=== PATIENT | male | born 1955 | race Caucasian/White ===

== ENCOUNTER 2018-04-12 16:00 | Outpatient (RCR) | payer BC, SELFPAY ==
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
--- NOTE | 2018-03-15 17:30 | HP.OTEVAL ---
Patient's Visit Information KETAN COTTON is a 62 year old M, referred to Occupational Therapy by Carl Franco, , with a diagnosis of Bilateral Thumb Pain; CMC OA. Date of Evaluation: 03/15/18 Occupational Therapist: Carlyn Boyce - Subjective Subjective: Arrived and noted previously fell on L wrist and broke L scaphoid fx and elbow fx of L wrist with screws in 2000. No new injury to L wrist. B wrist pain. 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 Noted that has had ongoing B thumb pain over the last year or so and has had increased pain in L wrist since break. Looking to help manage and decrease pain in thumbs and wrist. - Pain Bilateral Wrist 1 Pain Intensity Range: 0, 3 - Objective Concerns: Please send order for iontophoresis to complete anti-inflammatory techniques to decrease pain in thumbs. - ROM Wrist: Flex R 0-91, L 0-62; ext R 0-39, L 0-36 MP: R 0-60, L 0-68 IP: R 0-67, L 0-62 Radial Abduction: R 0-63, L 0-62 Opposition: R 0-26, L 0-24 MP: WFL PIP: WFL DIP: WFL ROM Comments: Increased formation of ostephytes noticable at DIP. - Strength Independent Beauty Consultant: R 95, L 89 Lateral Pinch: R 22, L 18 (increased pain and facial expressions at 8 lbs) Tripod Pinch: R 12, L 15 lbs Tip-to-Tip Pinch: held due to pain while completing previous fx pinch patterns - Sensation Sensation Comments: Denies numbness or tingling. - DASH-Disabilities of Arm, Shoulder& Hand DASH Sum: 48 - Goals Goal:: Timmy to increase B associate doctor by 5-10 lbs to promote increased stability of wrist and decreased pain in CMC regin for ADl/IADls by d/c. Goal:: Timmy to have no more than 1/10 pain in B thumb and wrists with fx movements 4/5 trials 80% of the timd to promote increased participation of ADl/IADls by d/c. Goal:: Timmy to be mod I to complete proper ergonomics of wrist and hand to decrease pain and promote increased body mechanics 4/5 trials 80% of the time by d/c. Goal:: Timmy to be (I) to complete HEP to promote increased stability of R wrist and thumb 4/5 trials 80% of the time by d/c. - Rehabilitation General Assessment: OT evaluation on this date. He has had previous scaphoid fx of L wrist with screw placement in 2000. Increased pain in L wrist and at B thumb regions due to B CMC OA. OT to work on increased strength and stability of basal joint to promote CMC stability, pain management, and increased ergonomics to promote increased stability for ADL/IADls and decrease pain t/o wrist with fx movements. Rehabilitation Potential: Good - Anticipated Interventions Anticipated Interventions: A/AAROM/PROM, Strengthening, Modalities, Orthoses, Joint Protection/Energy Conservation, Ergonomic Education, Dynamic Sitting Balance, Fine Motor Coord/Dick, ADL Training, Caregiver Training, Home Program - Visit Plan Frequency: 2x /Week Duration: 4 Weeks General Plan: OT to work on ROM, strength, ergonomics, modalities as needed to manage pain, and general techniques to decrease pain to promote returning to PLOF for all ADl/IADLS by d/c. TEXT: Thank you for the opportunity to evaluate your patient. For Medicare and Medicare HMO plans, please review the plan of care and approve it. It will need to be FAXED BACK to us at [phone] for Medicare purposes. Please let me know if there are questions or concerns regarding this plan of care. Physician Signature: Date:
--- NOTE | 2018-04-12 17:01 | HP.OTDCSUM_ITS ---
HP - OT D/C Summary It has been my pleasure to treat KETAN COTTON under orders from Carl Franco, , for the diagnosis of Bilateral Thumb Pain; CMC OA for a total of 6 visit(s). Please see the following information for a summary of their discharge status. - Overall Improvement % Improvement: 70 - Objective Objective/Function: Reassessment completed on this date, 04/12/18. Measurements are as follows: thumb opposition R 0-26, L 0-30, MP flexion R 15-72, L 15-73, IP flexion R 0-69, L -6-62. Wrist flexion R 0-87, L 0-76; ext R 0-45, L 0-39 degrees. Strength assessment is as follows: ophthalmic medical technologist R 112, L 101; lateral R 26, L 22 lbs- some pain but 1-2/10, tripod R 21, L 18 lbs, pincer R 10, L 12 lbs. - Goals Patient Goals: Regain Mobility, Regain Strength, Decrease Pain, Improve Fine Motor Skills, Use Hand/Wrist/Arm Normally Again, Sleep Better, Decrease Tingling /Numbness, Increase ROM, Be More Independent in ADLS, Resume Former Household Responsibilities (Cooking,Cleaning,Yard, etc.), Resume Hobbies Goal:: Timmy to increase B ophthalmic medical technologist by 5-10 lbs to promote increased stability of wrist and decreased pain in CMC regin for ADl/IADls by d/c. Goal:: Timmy to have no more than 1/10 pain in B thumb and wrists with fx movements 4/5 trials 80% of the timd to promote increased participation of ADl/ IADls by d/c. Goal:: Timmy to be mod I to complete proper ergonomics of wrist and hand to decrease pain and promote increased body mechanics 4/5 trials 80% of the time by d/c. Goal:: Timmy to be (I) to complete HEP to promote increased stability of R wrist and thumb 4/5 trials 80% of the time by d/c. - Plan Plan: Pt. to be d/c'd today as noted doing welland progress or meant most goals. He reports using KT methods during work. Has order for CMC push brace but due to recent termination at job is waiting before ordering. He is continuing to complete work-related tasks and has been educated pain may return when returning to full duty work in which PUSH brace and KT tape will as well as HEP will help manage. He has been provided order for brace to get at leisure with financial situation. - D/C Information If there are questions or concerns regarding this patient's occupational therapy , please fell free to call me at [phone]. Thank you for the referral of this patient. Sincerely, Carlyn Boyce, OTR/L
== END 2018-04-12 19:00 | disposition home or self-care (01) ==
LOC: OT 16:00
PROVIDERS: Family Provider Family Medicine; PCP Family Medicine; Visit Provider Family Medicine
DX: M79.644 Pain in right finger(s) (principal); M79.645 Pain in left finger(s); G57.32 Lesion of lateral popliteal nerve, left lower limb; S16.1XXD Strain of muscle, fascia and tendon at neck level, subsequent encounter
CPT/HCPCS: 97035; 97110; 97140; 97161; 97166; 97168; 97530

== ENCOUNTER 2019-02-04 19:07 | Emergency (ER) | payer BC, SELFPAY ==
[2019-02-04 19:08] VITALS: BP 134/89; PULSE 74; RESP 18; TEMP 37.1; O2SAT 97; BMI 29.3
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
--- NOTE | 2019-02-04 19:23 | RAD_ITS ---
STUDY: X-RAY - LEFT FOOT CLINICAL: Male, 63 years old. Pain and swelling TECHNIQUE: 3 view(s) of the foot. COMPARISON: None. FINDINGS: Normal talus, calcaneus, and tarsal bones. Normal visualized subtalar, talonavicular, calcaneocuboid, tarsal and tarsometatarsal articulations. Normal metatarsi. Normal metatarsophalangeal joint of the great toe. Normal tibial and fibular sesamoid bones. Normal interphalangeal joint of the great toe. Normal phalanges of the great toe. Normal second through fifth metatarsophalangeal joints. Normal interphalangeal joints and phalanges of the lesser toes. The soft tissue structures are unremarkable. RAD/Foot min 3 Views IMPRESSION: Normal x-ray examination of the foot. Electronically Signed: Umer Cabral MD at 19:42 EDT , Service support ,
[2019-02-04] MEDS: HYDROcodone Bitartrate/Apap 5/325 Tablet PO (20:25)
[2019-02-04 20:39] VITALS: BP 130/68; PULSE 78; RESP 18; O2SAT 98
== END 2019-02-04 20:39 | disposition home or self-care (01) ==
LOC: ED 19:55
PROVIDERS: Emergency Provider Emergency Medicine; Family Provider Family Medicine; PCP Family Medicine
DX: S90.32XA Contusion of left foot, initial encounter (principal); W20.8XXA Other cause of strike by thrown, projected or falling object, initial encounter; Y93.89 Activity, other specified; Y92.89 Other specified places as the place of occurrence of the external cause; Y99.8 Other external cause status
CPT/HCPCS: 73630; 99283

== ENCOUNTER 2019-02-06 17:32 | Emergency (ER) | payer BC, SELFPAY ==
[2019-02-06 17:34] VITALS: BP 135/76; PULSE 67; RESP 18; TEMP 36.9; O2SAT 96; BMI 29.4
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
--- NOTE | 2019-02-06 18:18 | US_ITS ---
STUDY: VENOUS DOPPLER ULTRASOUND - LEFT LOWER EXTREMITY REASON FOR EXAM: Male, 63 years old. Leg swelling TECHNIQUE: Ultrasound evaluation of the deep vein system to include akhtar-scale imaging and compression was performed. Akhtar-scale imaging and Doppler sonographic evaluation, including duplex spectral analysis and qualitative color flow sonography, was performed. COMPARISON: None. FINDINGS: No deep venous thrombosis is identified. All visualized veins demonstrate normal compressibility, augmentation and/or color flow. Multiple calf varicosities are visible. US/Venous Duplex Imag/Limited/Uni IMPRESSION: No DVT is identified. Electronically Signed: Blake Lyon MD at 19:15 EDT Tel , Service support ,
--- NOTE | 2019-02-06 19:10 | DCINST.ED_ITS ---
ED Disposition - Plan for ED Patient: Disposition: Home or Assisted Living Instructions: THROMBOPHLEBITIS, Superficial Referrals: Umer Kirk DPM [STAFF PHYSICIAN] - As Needed Additional Instructions: Continue naproxen. Elevate your leg to decrease the swelling. Follow-up with your silvering applicator Dr. Umer Kirk
[2019-02-06 19:23] VITALS: BP 132/60; PULSE 76; RESP 18; O2SAT 96
== END 2019-02-06 19:24 | disposition home or self-care (01) ==
PROVIDERS: Emergency Provider Emergency Medicine; Family Provider Family Medicine; PCP Family Medicine
DX: I80.02 Phlebitis and thrombophlebitis of superficial vessels of left lower extremity (principal); M79.89 Other specified soft tissue disorders; V28.0XXD Motorcycle driver injured in noncollision transport accident in nontraffic accident, subsequent encounter; M19.90 Unspecified osteoarthritis, unspecified site; K21.9 Gastro-esophageal reflux disease without esophagitis; E78.00 Pure hypercholesterolemia, unspecified; Z79.899 Other long term (current) drug therapy
CPT/HCPCS: 93971; 99282

== ENCOUNTER → 2019-02-16 | Outpatient (CLI) | payer BC, SELFPAY ==
[2019-02-06 17:34] VITALS: BMI 29.4
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
== END | disposition home or self-care (01) ==
PROVIDERS: Family Provider Family Medicine; PCP Family Medicine; Referring Provider Podiatrist; Visit Provider Podiatrist
DX: S93.325A Dislocation of tarsometatarsal joint of left foot, initial encounter (principal)
CPT/HCPCS: 73718

== ENCOUNTER → 2019-02-21 | Outpatient (CLI) | payer BC, SELFPAY ==
[2019-02-06 17:34] VITALS: BMI 29.4
[2019-02-21 15:36] LABS: Absolute Lymphocyte Count 1.46 X10^3/uL (0.83-4.51); Absolute Neutrophil Count 4.6 X10^3/uL (2.0-7.7); Basophil# 0.02 X10^3/uL; Basophil% 0.3 % (0-1); Eosinophil# 0.07 X10^3/uL; Hematocrit 47.4 % (40-54); Hemoglobin 16.6 g/dL (13.0-16.5); Lymphocyte # 1.46 X10^3/ul (4.0); Lymphocyte % 21.2 % (19-41); Mean Corpuscular Hgb 31.9 pg (27.0-32.0); Mean Platelet Vol. 10.8 fl (6.2-12.0); Monocyte# 0.75 X10^3/uL; Monocyte% 10.9 % (0-10); NRBC Flagged by Analyzer 0 % (0-5); Neutrophil # 4.57 X10^3/uL (2.7-7.7); Neutrophil % 66.2 % (47-70); Platelet Count 198 K/mm3 (150-450); RBC Distribution Width SD 39.8 fl (35.1-43.9); Red Blood Count 5.21 M/mm3 (4.6-6.2); White Blood Count 6.9 K/mm3 (4.4-11.0)
[2019-02-21 16:05] LABS: Anion Gap 8 (5-15); BUN 17 mg/dL (7-18); BUN/Creat Ratio 16.7 RATIO (10-20); Calcium,Total 8.9 mg/dL (8.5-10.1); Chloride 108 mmol/L (98-107); Creatinine, Serum 1.02 mg/dL (0.70-1.30); EST Glomerular Filtration Rate 78 mL/min (>60); Est Glom Filt Rate - Afr Amer 95 mL/min (>60); Glucose 100 mg/dL (74-106); Potassium 4.3 mmol/L (3.5-5.1); Sodium Level 147 mmol/L (136-145)
== END | disposition home or self-care (01) ==
LOC: MFPLAB 14:13
PROVIDERS: Family Provider Family Medicine; PCP Family Medicine; Referring Provider Family Medicine; Visit Provider Family Medicine
DX: Z00.00 Encounter for general adult medical examination without abnormal findings (principal)
CPT/HCPCS: 36415; 80048; 85025

== ENCOUNTER 2019-02-22 12:02 | Day surgery (SDC) | payer BC, SELFPAY ==
[2019-02-22] VITALS (10 sets, daily range): BP systolic 106–138; BP diastolic 78–92; PULSE 66–105; RESP 14–18; TEMP 36.2–37.1; O2SAT 89–99; BMI 29.9
--- NOTE | 2019-02-22 12:23 | EKG12_ITS ---
Test Reason : PREOP Blood Pressure : / mmHG Vent. Rate : 067 BPM Atrial Rate : 067 BPM P-R Int : 170 ms QRS Dur : 096 ms QT Int : 414 ms P-R-T Axes : 041 -31 034 degrees QTc Int : 437 ms Normal sinus rhythm Left axis deviation , LAHB Nonspecific T wave abnormality Abnormal ECG When compared with ECG of 14-OCT-2012 05:11, Nonspecific T wave abnormality has replaced inverted T waves in Inferior leads Confirmed by FELICIANO COLE ([id number]), state editor DIANA YOUNGER ([id number]) on 03/01/2019 8:47:53 AM Referred By: Umer Kirk Confirmed By:FELICIANO COLE
--- NOTE | 2019-02-22 14:30 | RAD_ITS ---
STUDY: X-RAY - LEFT FOOT CLINICAL: Male, 63 years old. ORIF TECHNIQUE: 4 view(s) of the foot. COMPARISON: February 04, 2019 FINDINGS: 4 fluoroscopic guided films were obtained utilizing 13 minutes 22 seconds of fluoroscopy time. There is Lisfranc injury noted with separation of the first and second metatarsal shafts. Postsurgical changes are noted with a surgical pin transfixing the second metatarsal and middle cuneiform as well as a second partially threaded screw traversing the medial cuneiform and base of the second metatarsal. For more complete information recommend correlation with surgical notes RAD/Foot min 3 Views IMPRESSION: Fluoroscopic guided ORIF Lisfranc injury of the left foot Electronically Signed: Umer Cabral MD at 19:49 EDT , Service support ,
[2019-02-22] MEDS: Bupivacaine Mpf 0.5% 30 ML VIAL (17:20)
--- NOTE | 2019-02-22 18:02 | RAD_ITS ---
STUDY: X-RAY - LEFT FOOT CLINICAL: Male, 63 years old. Postop TECHNIQUE: 3 view(s) of the foot. COMPARISON: None. FINDINGS: Status post ORIF and casting of the foot following postsurgical repair of previously noted Lisfranc joint injury at the base of the second and third metatarsals RAD/Foot min 3 Views IMPRESSION: Post surgical changes of the left foot Electronically Signed: Umer Cabral MD at 18:50 EDT , Service support ,
--- NOTE | 2019-02-22 18:09 | DCINST_ITS ---
Discharge Diet: Light diet - advance as tolerated Discharge Activity: May not drive while taking narcotic pain medications., Use Crutches Weight Bearing Status: No weight bearing - Strict nonweightbearing left foot Keep extremity elevated above heart level: Left Leg - Keep left foot elevated for at least 50 minutes of every hour Call your doctor if your incision/area has: Continuous Slow Oozing, Sudden Increased Bleeding, Foul Smelling Discharge Call your doctor if you observe: Fever of 101 or Higher, Coldness, Increased Pain, Shortness of breath, Chest pain, Increased palpitations (irregular heartbeat), Calf discomfort, Uncontrolled pain Cleanse incision/area with: Do not get Incision Wet, Keep Dressing Clean & Dry Allergies/Adverse Reactions: Allergies Penicillins Allergy (Verified 02/22/19 12:34) Unknown Medications to take at Discharge Esomeprazole Magnesium 40 mg PO DAILY 07/16/17 Pravastatin Sodium 40 mg PO QHS 07/16/17 Testosterone Cypionate 200 mg IM QMONTH 07/16/17 Multivitamin [Daily Multiple Vitamin] 1 ea PO DAILY 02/21/19 Naproxen [Naprosyn] 500 mg PO BID PRN PRN 02/21/19 Hydrocodone/Acetaminophen [Vicodin 5-300 mg Tablet] 1 - 2 tab PO Q6H PRN PRN 3 Days #30 tab 02/22/19 Rivaroxaban [Xarelto] 10 mg PO DAILY #14 tab 02/22/19 The following prescriptions were given: Hydrocodone/Acetaminophen [Vicodin 5-300 mg Tablet] 1 - 2 tab PO Q6H PRN PRN 3 Days #30 tab PRN Reason: Pain Rivaroxaban [Xarelto] 10 mg PO DAILY #14 tab Primary Care Physician: Carl Franco MD [Primary Care Provider] - Test Results: Test results from this visit will be discussed in further detail at your follow- up appointment, if applicable. Please Follow Up With: Umer Kirk DPM When: within 1 week, sooner if needed
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
[2019-02-22] MEDS: HYDROcodone Bitartrate/Apap 5/325 Tablet PO (19:26)
== END 2019-02-22 20:20 | disposition home or self-care (01) ==
LOC: SDC 12:05 → AC 12:06
PROVIDERS: Family Provider Family Medicine; PCP Family Medicine; Referring Provider Podiatrist; Visit Provider Podiatrist
PROC: (CPT 28485; principal; 2019-02-22 13:30)
DX: S93.325A Dislocation of tarsometatarsal joint of left foot, initial encounter (principal); S93.692A Other sprain of left foot, initial encounter; K21.9 Gastro-esophageal reflux disease without esophagitis; E78.00 Pure hypercholesterolemia, unspecified; Z79.1 Long term (current) use of non-steroidal anti-inflammatories (NSAID); Z79.899 Other long term (current) drug therapy; W20.8XXA Other cause of strike by thrown, projected or falling object, initial encounter; Y93.89 Activity, other specified; Y92.89 Other specified places as the place of occurrence of the external cause; Y99.8 Other external cause status
CPT/HCPCS: 01480; 28322; 73630; 76000; 93005; C1713; J7120; J2405

== ENCOUNTER 2019-05-15 17:30 | Outpatient (RCR) | payer BC, SELFPAY ==
[2019-02-22 12:37] VITALS: BMI 29.9
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
--- NOTE | 2019-07-01 13:46 | HP.PTDCNRP_ITS ---
HP - Discharge Summary (1) - Patient Information KETAN COTTON was seen in my office for initial evaluation on 04/10/19. The following Plan of Care was established for this patient: Initial Frequency: 3x /Week Initial Duration: 2 Months - Anticipated Interventions Patient/Client Instruction: Educate patient on: Condition, Plan of Care For the Purpose of:: To decrease pain, To decrease swelling/inflammation, To in crease ROM, To improve nutrient delivery to tissue, To improve muscle performance and motor function, To improve ability to perform ADL's, To increase tolerance to activity/condition/position, To improve performance and independence with ADL's, To decrease level of supervision to perform tasks, To improve ability of physical actions for home/community/work/leisure, To improve gait and locomotor functions, To improve health of tissue, To decrease soft tissue restriction, To increase flexibility/ROM, To improve endurance, To improve balance, To improve safety with gait Therapeutic Exercise to Include: Strength training, Endurance training, Balance training, Coordination, Flexibilty training, Gait and locomotor training, Passive ROM, Active ROM For the Purpose of:: To decrease pain, To decrease swelling/inflammation, To increase ROM, To improve nutrient delivery to tissue, To improve muscle performance and motor function, To improve ability to perform ADL's, To increase tolerance to activity/condition/position, To improve performance and independence with ADL's, To decrease level of supervision to perform tasks, To improve ability of physical actions for home/community/work/leisure, To improve gait and locomotor functions, To improve health of tissue, To decrease soft tissue restriction, To increase flexibility/ROM, To improve endurance, To improve balance Functional Training to Include: Gait training For the Purpose of:: To improve gait and locomotor functions, To improve safety with gait Manual Therapy Techniques to Include: Massage, Scar massage, Soft tissue mobilization For the Purpose of:: To decrease pain, To decrease swelling/inflammation, To increase ROM, To improve nutrient delivery to tissue, To improve muscle performance and motor function IF ES: Yes Cryotherapy (ice pack, ice massage): Yes Ultrasound (thermal/non thermal): Yes For the Purpose of:: To decrease pain, To decrease swelling/inflammation, To increase ROM, To improve nutrient delivery to tissue, To improve muscle performance and motor function This patient was last seen in our office 05/15/19. Pertinent comments regarding their Physical therapy will appear below: DC PT. Pt was 90% better on his last visit and we were holding his chart incase he felt he needed additional PT. At this point I will be discontinuing this patient from physical therapy. I would be happy to see this patient again in the future if found appropriate by the physician. Thank you! Monica Galvez, MPT
== END 2019-05-15 19:00 | disposition home or self-care (01) ==
LOC: PT 17:30
PROVIDERS: Family Provider Family Medicine; PCP Family Medicine; Referring Provider Podiatrist; Visit Provider Podiatrist
DX: Z98.890 Other specified postprocedural states (principal)
CPT/HCPCS: 97110; 97140; 97162; 97530

== ENCOUNTER 2019-08-23 14:06 | Day surgery (SDC) | payer BC, SELFPAY ==
[2019-02-22 12:37] VITALS: BMI 29.9
[2019-08-19 14:06] VITALS: BMI 30.3
[2019-08-23 14:28] VITALS: BP 134/83; PULSE 71; RESP 16; TEMP 36.9; O2SAT 95; BMI 29.7
[2019-08-23] MEDS: Lactated Ringers 1,000 ML 100 ML IV (14:40)
--- NOTE | 2019-08-23 15:45 | BON_PTH ---
PATIENT: KETAN COTTON [place] [facility] [id number] AGE/SX: 63/M ROOM: RE08/23/[address]: Dr. Umer Kirk DPM : 1955 BED: DIS: 08/23/2019 SPEC #: [id number] RECD: 08/26/19 13:25 STATUS: TUAN ABBIE #: [id number] PABLO: 08/23/19 15:[address]: Umer Kirk DEPT: SURGICAL PATHOLOGY RECD BY: Analilia Gutierrez ENTERED: 08/26/19 14:49 SP TYPE: Bone OTHR DR: Dr. Carl Franco MD Tissues: Bone of foot, NOS Procedures: Decalcification bone/plaque Surgery Specimen Level III HEADER OPERATION: Hardware removal, placement Tightrope implant PRE-OP DIAGNOSIS: Torn Lisfranc ligament with retain symptomatic hardware TISSUE SUBMITTED: Prominent bone left foot MICROSCOPIC DIAGNOSIS Prominent bone left foot: Pieces of bone and adherent piece of fibroconnective tissue with reactive changes. YANELIS:richie 08/29/19 MICROSCOPIC DESCRIPTION Slides are reviewed. GROSS DESCRIPTION Received in fixative is one container labeled with the patient's name and designated prominent bone left foot. The specimen consists of four variable sized pieces of bone measuring in aggregate 2 x 1.5 x 0.3 cm. The entire specimen is submitted in one cassette after decalcification. / YANELIS:richie 08/26/19 TC:5 CPT: 66739, 00962
--- NOTE | 2019-08-23 15:47 | PCM.DC.POD ---
Discharge Diet: Light diet - advance as tolerated Discharge Activity: May not drive while taking narcotic pain medications. Weight Bearing Status: No weight bearing - No weightbearing left foot Keep extremity elevated above heart level: Left Leg Call your doctor if your incision/area has: Continuous Slow Oozing, Sudden Increased Bleeding, Foul Smelling Discharge Call your doctor if you observe: Fever of 101 or Higher, Shortness of breath, Chest pain, Calf discomfort, Uncontrolled pain Cleanse incision/area with: Do not get Incision Wet, Keep Dressing Clean & Dry Allergies/Adverse Reactions: Allergies erythromycin base Allergy (Intermediate, Verified 08/23/19 14:29) Nausea/Vom/Diarrhea niacin [From Niaspan Extended-Release] Allergy (Intermediate, Verified 08/23/19 14:29) Hives Penicillins Allergy (Verified 08/23/19 14:29) Unknown atorvastatin Adverse Reaction (Intermediate, Verified 08/23/19 14:29) myalgias cerivastatin [From Baycol] Adverse Reaction (Intermediate, Verified 08/23/19 14:29) leg cramps Medications to take at Discharge Esomeprazole Magnesium 40 mg PO DAILY 07/16/17 Pravastatin Sodium 40 mg PO QHS 07/16/17 Testosterone Cypionate 200 mg IM QMONTH 07/16/17 Multivitamin [Daily Multiple Vitamin] 1 ea PO DAILY 02/21/19 Albuterol IH (ProAir) [Proair Hfa (SP)Vent Pts] 1 - 2 puff INHALATION Q4H PRN PRN 08/16/19 D-Methorphan/PE/Acetaminophen [Day Time Cold-Flu Softgel] 1 ea PO PRN PRN 08/16/19 Fluticasone 0.05% [Flonase Nasal [place]] 1 spray NASAL PRN PRN 08/16/19 Loratadine [Claritin] 10 mg PO PRN PRN 08/16/19 Tamsulosin HCl [Flomax] 0.4 mg PO QHS 08/16/19 cyclobenzaprine 5 mg tablet 5 mg PO QHS PRN 08/16/19 diclofenac sodium 1 % topical gel 2 g TOPICAL BID PRN g 08/16/19 naproxen 500 mg tablet 500 mg PO BID PRN tab 08/16/19 nystatin-triamcinolone 1 applic TOPICAL BID PRN 08/16/19 Hydrocodone/Acetaminophen [[place] 5-325 Tablet] 1 - 2 ea PO Q6H PRN PRN 3 Days #24 tab 08/23/19 The following prescriptions were given: Hydrocodone/Acetaminophen [[place] 5-325 Tablet] 1 - 2 ea PO Q6H PRN PRN 3 Days #24 tab PRN Reason: Pain Score 1-1010 Transmission Status: Received by [facility] Primary Care Physician: Carl Franco MD [Primary Care Provider] - Test Results: Test results from this visit will be discussed in further detail at your follow-up appointment, if applicable. Please Follow Up With: Umer Kirk DPM When: 1 week, sooner if needed
--- NOTE | 2019-08-23 16:09 | RAD_ITS ---
STUDY: X-RAY - LEFT FOOT-fluoroscopy guided operative hardware removal. CLINICAL: Male, 63 years old. 3 mini c-arm images, intraoperative, left foot hardware removal TECHNIQUE: Fluoroscopic guidance was provided for operative procedure of hardware removal. 3 images were obtained. The reported fluoroscopy time was 2 minutes and 47 seconds. COMPARISON: None. FINDINGS: Images of the midfoot performed with radiopaque metallic structure projecting over the third metatarsal base. RAD/Foot min 3 Views IMPRESSION: Fluoroscopic guidance provided as described above. For details please see operative report. Electronically Signed: Cara Pandya MD at 2:34 EST , Service support ,
[2019-08-23] MEDS: Bupivacaine Mpf 0.5% 30 ML VIAL (17:16)
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
[2019-08-23 17:26] VITALS: BP 134/83; BP 167/108; PULSE 79; RESP 16; TEMP 36.5; O2SAT 94
[2019-08-23 17:30] VITALS: BP 134/83; BP 144/96; PULSE 78; RESP 16; O2SAT 92
--- NOTE | 2019-08-23 17:35 | RAD_ITS ---
STUDY: X-RAY - LEFT FOOT CLINICAL: Male, 63 years old. POST OP REMOVAL OF SCREW AND PLACEMENT OF TIGHTROPE IMPLANT LEFT FOOT TECHNIQUE: 3 view(s) of the foot. COMPARISON: None. FINDINGS: There is soft tissue swelling with the small amount of air and irregularity over the medial aspect of the first cuneiform bones, findings which may be due to recent surgery, cannot exclude infectious process. Otherwise normal talus, calcaneus, and tarsal bones. Normal visualized subtalar, talonavicular, calcaneocuboid, tarsal and tarsometatarsal articulations. Is visualization of a small metallic structure projecting over the dorsum of the second and third metatarsal bases with status post removal previously seen pain and fixation screw. Otherwise normal metatarsal bones.. There is degenerative arthrosis of the metatarsophalangeal joint of the hallux . Normal tibial and fibular sesamoid bones. There is degenerative arthrosis of the interphalangeal joint of the great toe. Normal phalanges of the great toe. Normal second through fifth metatarsophalangeal joints. Narrowing of the distal interphalangeal joints otherwise normal phalanges of the lesser toes. The soft tissue structures are unremarkable. There is no demonstrated fracture. RAD/Foot min 3 Views IMPRESSION: Postoperative changes as described above. Cannot exclude infectious process at the medial aspect of the first cuneiform bone versus recent surgical change. If indicated, follow-up with MRI or bone scan recommended. Electronically Signed: Cara Pandya MD at 2:38 EST , Service support ,
[2019-08-23 17:45] VITALS: BP 134/83; BP 135/92; PULSE 76; RESP 16; O2SAT 95
[2019-08-23 17:53] VITALS: BP 134/83; BP 140/89; PULSE 80; RESP 16; TEMP 36.5; O2SAT 95
[2019-08-23] MEDS: HYDROcodone Bitartrate/Apap 5/325 Tablet PO (18:06)
[2019-08-23 19:05] VITALS: BP 134/83; BP 143/90; PULSE 63; RESP 16; TEMP 36.8; O2SAT 98
== END 2019-08-23 19:08 | disposition home or self-care (01) ==
LOC: SDC 14:06 → AC 14:11
PROVIDERS: Family Provider Family Medicine; PCP Family Medicine; Referring Provider Podiatrist; Visit Provider Podiatrist
PROC: (CPT 20680; principal; 2019-08-23 15:30)
DX: T84.84XA Pain due to internal orthopedic prosthetic devices, implants and grafts, initial encounter (principal); K21.9 Gastro-esophageal reflux disease without esophagitis; E78.00 Pure hypercholesterolemia, unspecified; R35.1 Nocturia; R07.9 Chest pain, unspecified; Z79.899 Other long term (current) drug therapy
CPT/HCPCS: 01480; 20680; 28140; 28899; 73630; 76000; 88304; 88305; 88311; C1713; J7120; J2405

== ENCOUNTER 2019-11-25 16:30 | Outpatient (RCR) | payer BC, SELFPAY ==
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
--- NOTE | 2019-10-23 17:59 | HP.PTREVAL ---
Umer Kirk, CURT, It has been my pleasure to treat KETAN COTTON over the last 11 visits for S/P LEFT FOOT HARDWARE REMOVAL AND WIRE PLACEMENT 08/23/19. Please see the progress note below for an update on the physical therapy plan of care! Subjective: PATIENT REPORTS HIS FOOT IS GETTING BETTER. STATES HE CAN EVEN WALK NORMALLY ON IT FOR BRIEF PERIODS OF TIME NOW. TAKING WALKS WITH HIS NOW BUT HE GETS PRETTY SORE BY THE TIME THEY ARE DONE (OVER A MILE). Objective/Function: IMPROVING. PATIENT IS MAKING SLOW PROGRESS TOWARD ALL SET PT GOALS AND IS A GOOD CANDIDATE TO CONTINUE PT BASED ON PROGRESS MADE AND ROOM FOR FUTHER IMPROVEMENT. AROM LEFT ANKLE: PF 58 DEG, DF - 8 DEG, IV 28 DEG, EV 33 DEG. LIMITED TOE ROM. FOREFOOT TIGHTNESS. Plan Plan: START SESSIONS WITH MANUAL THERAPY - JOINT ROM AND STRETCHING. LEFT LE AROM, PROM AND MANUAL THERAPY TO INCREASE ROM, DECREASE SWELLIING, IMPROVE STERNGTH, BALANCE, GAIT AND PROPRIOCEPTION WBAT IN SHOE. MODALITIES FOR SWELLING NEEDED. Anticipated Interventions Patient/Client Instruction: Educate patient on: Condition, Plan of Care, Risk Factors, Benefits of Fitness Program For the Purpose of:: To improve self management Therapeutic Exercise to Include: Strength training, Balance training, Flexibilty training, Gait and locomotor training, Neuromotor development, Passive ROM, Active ROM For the Purpose of:: To decrease pain, To decrease swelling/inflammation, To increase ROM, To improve muscle performance and motor function, To increase tolerance to activity/condition/position, To improve ability of physical actions for home/community/work/leisure, To improve gait and locomotor functions Manual Therapy Techniques to Include: Mobilization, Passive ROM For the Purpose of:: To decrease pain, To decrease swelling/inflammation, To increase ROM Cryotherapy (ice pack, ice massage): Yes For the Purpose of:: To decrease pain, To decrease swelling/inflammation Please do not hesitate to contact me at [phone] by phone or if you have questions or concerns regarding this new plan of care! Sincerely, Kyung Alonso, PT, Cert MDT
--- NOTE | 2019-11-25 17:10 | HP.PTDCSUM ---
It has been my pleasure to treat KETAN COTTON referred by Umer Kirk DPM, with the diagnosis of S/P LEFT FOOT HARDWARE REMOVAL AND WIRE PLACEMENT 08/23/19 for a total of 22 visit(s). Discharge Date: Please see the following information for a summary of their discharge status. Subjective: PATIENT REPORTS HE IS 95+% BETTER. PATIENT REPORTS THE STRETCHES ARE REALLY HELPING HIM. PATIENT REPORTS BEING ABLE TO WALK NORMALLY OFF AND ON BUT THE MORE HE PUTS WEIGHT ON THE BALL OF HIS FOOT THE MORE IT HURTS. 1-2/10 PAIN WITH A HEEL RAISE. HAS NOT TRIED TO RUN DUE TO PAIN. RIGHT FOOT Pain Intensity (Out of 10): 0 L foot Pain Intensity (Out of 10): 0 % Improvement: 95 Objective/Function: PATIENT WAS SEEN TODAY FOR RE-ASSESSMENT OF PROGRESS TOWARD THE SET PT GOALS AND THE NEED FOR FURTHER PHYSICAL THERAPY VS READINESS FOR DISCHARGE. UPON EXAM TODAY: PATIENT HAS GOOD ISOMETRIC STRENGTH OF HIS LEFT FOOT AND ANKLE WITH MMT'ING BUT WEAKNESS IS SEEN IN DIGITS 2,3 AND 4 GRADED 4/4 INTO FLEXION AND EXTENSION. LEFT ANKLE ROM HAS IMPROVED TOO: DF +7 DEG, PF 60 DEG, IV 43 DEG AND EV 38 DEG. PATIENT IS INDEP WITH A HEP AND APPROPRIATE FOR DISCHARGE. PATIENT IS AGREEABLE. THIS PT RECOMMENDED PHYSICIAN FOLLOW UP NEEDED IF HE DOES NOT CONTINUE TO IMPROVE. PATIENT AGREEABLE. Plan: D/C TO HEP. PATIENT AGREEABLE. If there are questions or concerns regarding this patient's physical therapy, please feel free to call me at [phone]. Thank you for the referral of this patient. Sincerely, Kyung Alonso, PT, Cert MDT
== END 2019-11-25 19:00 | disposition home or self-care (01) ==
LOC: PT 16:30
PROVIDERS: PCP Family Medicine; Referring Provider Podiatrist; Visit Provider Podiatrist
DX: Z98.890 Other specified postprocedural states (principal)
CPT/HCPCS: 97110; 97140; 97162; 97164

== ENCOUNTER 2020-10-09 11:15 | Outpatient (RCR) | payer MEDICARE, BC, SELFPAY ==
[2020-10-09] MEDS: COVID-19 VACC, MRNA(PFIZER)/PF 30 MCG/0.3 ML SYRINGE IM (16:00)
[2020-10-30] MEDS: COVID-19 VACC, MRNA(PFIZER)/PF 30 MCG/0.3 ML SYRINGE IM (16:01)
== END 2020-10-09 23:59 ==
LOC: IMMUN 11:15
PROVIDERS: PCP Family Medicine; Visit Provider Family Medicine
DX: Z23 Encounter for immunization (principal)
CPT/HCPCS: 0001A; 0002A; 91300

== ENCOUNTER 2021-06-18 08:30 | Outpatient (RCR) | payer MEDICARE, SELFPAY ==
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
--- NOTE | 2021-06-18 09:36 | HP.PTDCSUM ---
It has been my pleasure to treat KETAN COTTON referred by Dr. Rena Aviles, [facility], with the diagnosis of L mid foot pain DOS 08/19/19 for a total of 13 visit(s). Discharge Date: Please see the following information for a summary of their discharge status. Subjective: I am ready for discharge L foot Pain Intensity (Out of 10): 0 % Improvement: 85 Objective/Function: L ankle pain 0-1/10. L ankle DF ROM 11 degrees. L ankle strength is 5/5 throughout. Pt is I with HEP. Rx goals achieved Goal 1:: Decrease L foot pain x 50% to aid with sleep Goal Progress: Goal Met Goal 2:: Increase L ankle DF ROM x 5-10 degrees to aid with restoring a more normal gait pattern Goal Progress: Goal Met Goal 3:: Increase L ankle strength x 1 grade to aid with increased tolerance for ambulation Goal Progress: Goal Met Goal 4:: I with HEP Goal Progress: Goal Met Plan: Discharge If there are questions or concerns regarding this patient's physical therapy, please feel free to call me at [phone]. Thank you for the referral of this patient. Sincerely, Gio Gonzalez, PT, ATC Balance/Gait/Functional tests - Balance/Special Test Scores Lower Extremity Functional Score: 69
== END 2021-06-18 19:00 | disposition home or self-care (01) ==
LOC: PT 08:30
PROVIDERS: PCP Family Medicine; Referring Provider Podiatrist; Visit Provider Podiatrist
DX: M77.8 Other enthesopathies, not elsewhere classified (principal); Z87.828 Personal history of other (healed) physical injury and trauma
CPT/HCPCS: 97110; 97140; 97161; 97164

== ENCOUNTER 2022-07-16 17:55 | Inpatient (IN) | payer MEDICARE, SELFPAY ==
[2022-07-16] VITALS (7 sets, daily range): BP systolic 138–169; BP diastolic 78–111; PULSE 55–64; RESP 15–18; TEMP 36.1–36.8; O2SAT 93–99; BMI 31.3
--- NOTE | 2022-07-16 18:42 | EKG12_ITS ---
Test Reason : DYSRHYTHMIA Blood Pressure : / mmHG Vent. Rate : 052 BPM Atrial Rate : 052 BPM P-R Int : 172 ms QRS Dur : 108 ms QT Int : 452 ms P-R-T Axes : 051 -29 007 degrees QTc Int : 420 ms Sinus bradycardia Otherwise normal ECG Confirmed by JOSÉ LUIS TRUONG, LISE ([id number]), web editor DIANA YOUNGER ([id number]) on 07/18/2022 12:46:02 PM Referred By: Confirmed By:LISE ORDONEZ MD
--- NOTE | 2022-07-16 18:42 | RAD_ITS ---
STUDY: X-RAY CHEST REASON FOR EXAM: Male, 66 years old. chest pain TECHNIQUE: Single AP portable view of the chest. COMPARISON: 10/14/2012 FINDINGS: Poor inspiration with some bibasilar atelectasis. There is no demonstrated pleural abnormality. Normal size heart. Normal mediastinum and walter. Normal visualized pulmonary arteries. Normal visualized aortic arch and descending thoracic aorta. Normal visualized thoracic spine. Normal visualized ribs, clavicles, and shoulders. There is no demonstrated abnormality of the visualized soft tissue structures of the upper abdomen. RAD/Chest 1 View (Portable) IMPRESSION: Poor inspiration with some bibasilar atelectasis. Electronically Signed: Curt Hall MD at 19:27 [facility] ,
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
[2022-07-16] MEDS: Aspirin 81 MG TAB.CHEW 324 MG PO (19:00)
[2022-07-16] MEDS: Acetaminophen 500 MG Tablet 1000 MG PO (19:00)
[2022-07-16 19:05] LABS: Absolute Lymphocyte Count 1.46 X10^3/uL (0.83-4.51); Absolute Neutrophil Count 6.1 X10^3/uL (2.0-7.7); Basophil# 0.02 X10^3/uL; Basophil% 0.2 % (0-1); Eosinophils% 1.2 % (0-5); Hematocrit 46.9 % (40-54); Hemoglobin 16.2 g/dL (13.0-16.5); Lymphocyte # 1.46 X10^3/ul (0.83-4.51); Mean Corp Hgb Conc 34.5 g/dL (32-36); Mean Corpuscular Hgb 31.3 pg (27.0-32.0); Mean Corpuscular Volume 90.7 fL (80-94); Mean Platelet Vol. 10.4 fl (6.2-12.0); Monocyte% 10.5 % (0-10); NRBC Flagged by Analyzer 0 % (0-5); Neutrophil % 70.9 % (47-70); Platelet Count 187 K/mm3 (150-450); RBC Distribution Width CV 12.6 % (11.6-14.6); RBC Distribution Width SD 41.5 fl (35.1-43.9); Red Blood Count 5.17 M/mm3 (4.6-6.2); White Blood Count 8.6 K/mm3 (4.4-11.0)
[2022-07-16 19:21] LABS: D-Dimer Quantitative (DVT/PE) 0.53 FEU/ug/m (0.27-0.49)
--- NOTE | 2022-07-16 19:22 | CT_ITS ---
STUDY: CTA CHEST REASON FOR EXAM: Male, 66 years old. elevated d dimer RADIATION DOSAGE (If Supplied By Facility): CTDIvol = ( 15.42 ) mGy, DLP = ( 532.79 ) mGycm TECHNIQUE: The examination was performed with the intravenous administration of IV 100mL Isovue-370. Post-processing of the angiographic images was performed, with multiplanar reformation and 3D reconstruction. Individualized dose optimization techniques were used for this CT. COMPARISON: Chest x-ray earlier today FINDINGS: Normal enhancement of the main pulmonary artery and right and left pulmonary arteries. Normal enhancement of the bilateral peripheral pulmonary arteries. There is no demonstrated pulmonary embolism. Normal thoracic aorta and visualized great vessels. There is no demonstrated aortic dissection. Normal heart and pericardium. Normal mediastinum. Normal hilar regions. Normal visualized trachea and bronchi. The lungs are well expanded. Normal pulmonary parenchyma. Normal pleura. Normal chest wall structures. Normal osseous structures. Normal visualized upper abdomen. CT/CTA Chest W/WO Contrast IMPRESSION: Normal CTA chest examination, without a demonstrated pulmonary embolism or arterial dissection. Electronically Signed: Curt Hall MD at 20:46 EST ,
[2022-07-16 19:29] LABS: Anion Gap 3 (5-15); BUN 21 mg/dL (7-18); BUN/Creat Ratio 20.8 RATIO (10-20); Calcium,Total 8.9 mg/dL (8.5-10.1); Chloride 109 mmol/L (98-107); Creatinine, Serum 1.01 mg/dL (0.70-1.30); EST Glomerular Filtration Rate 78 mL/min (>60); Est Glom Filt Rate - Afr Amer 95 mL/min (>60); Estimated Creatinine Clearance 71.94 ml/min; Glucose 92 mg/dL (74-106); Sodium Level 142 mmol/L (136-145); Troponin-I HS (w/2H Reflex) 253 pg/mL (3.0-78.0)
--- NOTE | 2022-07-16 19:50 | EKG12_ITS ---
Test Reason : DYSRHYTHMIA Blood Pressure : / mmHG Vent. Rate : 061 BPM Atrial Rate : 061 BPM P-R Int : 164 ms QRS Dur : 100 ms QT Int : 418 ms P-R-T Axes : 052 -28 028 degrees QTc Int : 420 ms Normal sinus rhythm Normal ECG Confirmed by JOSÉ LUIS TRUONG, LISE ([id number]), scientific publications editor DIANA YOUNGER ([id number]) on 07/18/2022 12:46:17 PM Referred By: Confirmed By:LISE ORDONEZ MD
[2022-07-16 21:01] LABS: Reflex Troponin-HS? (from REC) Y
[2022-07-16 21:36] LABS: International Normalized Ratio 1.1; Prothrombin Time (Protime)PT. 13.9 SECONDS (11.7-14.9)
[2022-07-16 21:37] LABS: Partial Thromboplast Time 28.6 Seconds (24.1-36.2)
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
[2022-07-16 21:50] LABS: Troponin-I HS 928 pg/mL (3.0-78.0)
[2022-07-16] MEDS: Heparin Injection (Vial) 5,000 UNIT/ML VIAL 4000 UNIT IV (21:59)
[2022-07-16] MEDS: HEPARIN/D5w 25,000 UNITS 25,000 UNITS/250 ML IV.SOLN. 10 UNITS CONT INF (22:00)
[2022-07-16] MEDS: Pravastatin 40 MG Tablet PO (22:04)
--- NOTE | 2022-07-16 22:56 | EKG12_ITS ---
Test Reason : NSTEMI ADMIT Blood Pressure : / mmHG Vent. Rate : 055 BPM Atrial Rate : 055 BPM P-R Int : 176 ms QRS Dur : 104 ms QT Int : 436 ms P-R-T Axes : 065 -38 -05 degrees QTc Int : 417 ms Sinus bradycardia Left axis deviation Nonspecific T wave abnormality Abnormal ECG When compared with ECG of 22-FEB-2019 12:30, Nonspecific T wave abnormality, worse in Inferior leads Confirmed by JOSÉ LUIS TRUONG, LISE ([id number]), editor dictionary DIANA YOUNGER ([id number]) on 07/19/2022 8:37:06 AM Referred By: Confirmed By:LISE ORDONEZ MD
--- NOTE | 2022-07-16 22:56 | ECHOD_ITS ---
Reason For Study: CHEST PAIN Procedure This was a 2D Doppler, Color Flow transthoracic echocardiogram. Exam performed portable in patient room. Left Ventricle Normal LV size. Left ventricular systolic function is normal. The estimated ejection fraction is 55 %. No regional wall motion abnormalities noted. Right Ventricle Normal RV size. Normal systolic function. Atria Normal left atrium. Normal right atrium. Mitral Valve Normal mitral valve. Mild (1+) eccentric mitral valve insufficiency. Tricuspid Valve Normal tricuspid valve. Mild (1+) tricuspid valve insufficiency. Pulmonary artery systolic pressure is 30 mmHg. Aortic Valve Normal aortic valve. Trisinus/trileaflet aortic valve. Pulmonic Valve Normal pulmonic valve. Great Vessels Normal aortic root. The pulmonary artery is normal size. Normal inferior vena cava. Pericardium/Pleural No pericardial effusion. MMode/2D Measurements & Calculations LVIDd: 5.0 cm IVSd: 0.87 cm Ao root diam: 3.3 cm LVIDs: 3.6 cm LVPWd: 0.89 cm RVDd: 4.0 cm FS: 26.7 % LAV(MOD-bp): 53.9 ml LVAd ap4: 38.1 cm2 SV(MOD-sp4): 80.1 ml LAV(MOD-bp) Indexed: 25.6 ml/m2 LVLd ap4: 8.7 cm LAV(MOD-sp2): 56.4 ml EDV(MOD-sp4): 134.3 ml LAV(MOD-sp4): 53.5 ml EDV(sp4-el): 140.8 ml LVAs ap4: 21.8 cm2 LVLs ap4: 7.3 cm ESV(MOD-sp4): 54.3 ml ESV(sp4-el): 54.9 ml EF(MOD-sp4): 59.6 % EF(sp4-el): 61.0 % SV(sp4-el): 85.9 ml LA A4 area: 19.5 cm2 LA dimension(2D): 3.8 cm RA A4 area: 20.1 cm2 Time Measurements MV dec time: 0.22 sec Doppler Measurements & Calculations MV E max ethan: 60.3 cm/sec Lat Peak E' Ethan: 11.0 cm/sec Med Peak E' Ethan: 7.4 cm/sec MV A max ethan: 63.5 cm/sec E/E' lat: 5.5 E/E' med: 8.1 MV E/A: 0.95 Ao V2 max: 128.9 cm/sec LV V1 max: 102.5 cm/sec PA V2 max: 52.9 cm/sec Ao max P.6 mmHg LV V1 max P.2 mmHg TR max ethan: 255.6 cm/sec TR max P.1 mmHg ECHO/Echo Complete Interpretation Summary Normal LV size. Left ventricular systolic function is normal. The estimated ejection fraction is 55 %. Mild (1+) tricuspid valve insufficiency. Pulmonary artery systolic pressure is 30 mmHg. Ordering Physician: Ruy Null Referring Physician: MALINDA WARE Performed By: Azeb Navas RDCS
[2022-07-17] VITALS (10 sets, daily range): BP systolic 105–133; BP diastolic 67–93; PULSE 59–87; RESP 16–18; TEMP 36.6–37; O2SAT 97–100
[2022-07-17] MEDS: Lisinopril 2.5 MG Tablet PO ×2 (00:03→08:35)
[2022-07-17 01:49] LABS: Troponin-I HS 2011 pg/mL (3.0-78.0)
[2022-07-17] MEDS: CLARIFY ORDER 1 EACH NOTE (01:58)
[2022-07-17 03:55] LABS: Absolute Lymphocyte Count 1.62 X10^3/uL (0.83-4.51); Absolute Neutrophil Count 4.5 X10^3/uL (2.0-7.7); Basophil# 0.05 X10^3/uL; Basophil% 0.7 % (0-1); Eosinophil# 0.23 X10^3/uL; Eosinophils% 3.1 % (0-5); Hemoglobin 15.6 g/dL (13.0-16.5); Lymphocyte # 1.62 X10^3/ul (0.83-4.51); Lymphocyte % 21.7 % (19-41); Mean Corp Hgb Conc 33.9 g/dL (32-36); Mean Corpuscular Hgb 31.1 pg (27.0-32.0); Mean Corpuscular Volume 91.8 fL (80-94); Monocyte# 1.04 X10^3/uL; Monocyte% 13.9 % (0-10); NRBC Flagged by Analyzer 0 % (0-5); Neutrophil % 60.3 % (47-70); Platelet Count 179 K/mm3 (150-450); RBC Distribution Width CV 12.6 % (11.6-14.6); RBC Distribution Width SD 42.5 fl (35.1-43.9); Red Blood Count 5.01 M/mm3 (4.6-6.2); White Blood Count 7.5 K/mm3 (4.4-11.0)
[2022-07-17 04:09] LABS: Partial Thromboplast Time 55.1 Seconds (24.1-36.2)
[2022-07-17 04:14] LABS: Anion Gap 5 (5-15); BUN 21 mg/dL (7-18); BUN/Creat Ratio 23.9 RATIO (10-20); Calcium,Total 8.3 mg/dL (8.5-10.1); Chloride 107 mmol/L (98-107); Cholesterol 165 mg/dL (200); Creatinine, Serum 0.88 mg/dL (0.70-1.30); EST Glomerular Filtration Rate 92 mL/min (>60); Est Glom Filt Rate - Afr Amer 112 mL/min (>60); Estimated Creatinine Clearance 85.26 ml/min; Glucose 100 mg/dL (74-106); High Density Lipoprotein 44 mg/dL; Potassium 3.5 mmol/L (3.5-5.1); Sodium Level 140 mmol/L (136-145); Triglycerides 188 mg/dL; Very Low Density Lipoprotein 38 mg/dL (5-40)
--- NOTE | 2022-07-17 08:23 | EKG12_ITS ---
Test Reason : Blood Pressure : / mmHG Vent. Rate : 055 BPM Atrial Rate : 055 BPM P-R Int : 168 ms QRS Dur : 098 ms QT Int : 444 ms P-R-T Axes : 065 -33 -17 degrees QTc Int : 424 ms Sinus bradycardia with Premature atrial complexes Left axis deviation Nonspecific T wave abnormality Abnormal ECG When compared with ECG of 17-JUL-2022 00:21, MANUAL COMPARISON REQUIRED, DATA IS UNCONFIRMED Confirmed by JOSÉ LUIS TRUONG, LISE ([id number]), editor farm journal DIANA YOUNGER ([id number]) on 07/19/2022 8:35:46 AM Referred By: Confirmed By:LISE ORDONEZ MD
[2022-07-17] MEDS: Pantoprazole Sodium 40 MG Tablet PO (08:35)
[2022-07-17] MEDS: Tamsulosin HCl 0.4 MG Capsule PO (08:35)
[2022-07-17] MEDS: Aspirin E.C. 81 MG Tablet PO (08:35)
[2022-07-17] MEDS: Multivitamins,Therapeutic Tablet 1 TABLET PO (08:35)
[2022-07-17] MEDS: Ferrous Sulfate 325 MG Tablet PO (08:35)
--- NOTE | 2022-07-17 09:28 | PN.HOSP_ITS ---
Subjective Subjective Follow-up for NSTEMI. Objective Data Objective Data Vital Signs: Vital Signs Temp Pulse Resp BP Pulse Ox O2 Del Method 97.9 F 59 L 16 129/93 H 99 Room Air 07/17/22 08:15 07/17/22 08:19 07/17/22 08:15 07/17/22 08:15 07/17/22 08:30 07/17/22 08:30 Oxygen Delivery Method Room Air Weight: 209 lb 7.026 oz Body Mass Index (BMI) 30.0 Intake & Output: Intake and Output for Last 24 Hours 07/15/22 07/16/22 07/17/22 23:59 23:59 23:59 Intake Total 70.83 / 70.83 Balance 70.83 / 70.83 Lab / Micro Data Result Diagrams: 07/17/22 03:46 07/17/22 03:46 Labs: Laboratory Results - last 24 hr 07/16/22 18:56: WBC 8.6, RBC 5.17, Hgb 16.2, Hct 46.9, MCV 90.7, MCH 31.3, MCHC 34.5, RDW Std Deviation 41.5, RDW Coeff of Tere 12.6, Plt Count 187, MPV 10.4, Immature Gran % (Auto) 0.200, Neut % (Auto) 70.9 H, Lymph % (Auto) 17.0 L, [place] % (Auto) 10.5 H, Eos % (Auto) 1.2, Baso % (Auto) 0.2, Absolute Neuts (auto) 6.1, Absolute Lymphs (auto) 1.46, Nucleated RBC % 0 07/16/22 18:56: Sodium 142, Potassium 4.0, Chloride 109 H, Carbon Dioxide 30.0, Anion Gap 3 L, BUN 21 H, Creatinine 1.01, Estim Creat Clear Calc 71.94, Est GFR (MDRD) Af Amer 95, Est GFR (MDRD) Non-Af 78, BUN/Creatinine Ratio 20.8 H, Glucose 92, Calcium 8.9, Troponin I High Sens 253 H* 07/16/22 18:56: D-Dimer Quant (PE/DVT) 0.53 H* 07/16/22 18:56: PT 13.9, INR 1.1, APTT 28.6 07/16/22 21:10: Troponin I High Sens 928 H* 07/17/22 01:08: Troponin I High Sens 2011 H* 07/17/22 03:46: WBC 7.5, RBC 5.01, Hgb 15.6, Hct 46.0, MCV 91.8, MCH 31.1, MCHC 33.9, RDW Std Deviation 42.5, RDW Coeff of Tere 12.6, Plt Count 179, MPV 11.0, Immature Gran % (Auto) 0.300, Neut % (Auto) 60.3, Lymph % (Auto) 21.7, [place] % (Auto) 13.9 H, Eos % (Auto) 3.1, Baso % (Auto) 0.7, Absolute Neuts (auto) 4.5, Absolute Lymphs (auto) 1.62, Nucleated RBC % 0 07/17/22 03:46: Sodium 140, Potassium 3.5, Chloride 107, Carbon Dioxide 28.0, Anion Gap 5, BUN 21 H, Creatinine 0.88, Estim Creat Clear Calc 85.26, Est GFR (MDRD) Af Amer 112, Est GFR (MDRD) Non-Af 92, BUN/Creatinine Ratio 23.9 H, Glucose 100, Calcium 8.3 L, Triglycerides 188, Cholesterol 165, LDL Cholesterol 83, VLDL Cholesterol 38, HDL Cholesterol 44 07/17/22 03:46: APTT 55.1 H Radiography Diagnostic Testing: Radiology Impression Chest X-Ray 07/16/22 18:42 IMPRESSION: Poor inspiration with some bibasilar atelectasis. Electronically Signed: Curt Hall MD at 19:27 EST Reading Location ID and State: [email or web address] / [employer] , Service support , Chest CTA 07/16/22 19:22 IMPRESSION: Normal CTA chest examination, without a demonstrated pulmonary embolism or arterial dissection. Electronically Signed: Curt Hall MD at 20:46 EST Reading Location ID and State: [email or web address] / [employer] , Service support , Physical Exam Narrative Physical exam Patient has healthy lifestyle. 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 He had pain over the left arm/armpit with radiation to bilateral periscapular area, more p rominent in the left side on lifting mattress but also had dyspnea on exertion progressively for last 1 year General: Alert, Oriented x3, Cooperative HEENT: Atraumatic, PERRLA, EOMI, Normocephalic Oral: No Gingival or Mucosal Lesions/ Ulcerations Neck: Supple, No JVD, Negative Carotid Bruits Lungs: Air entry equal in bilateral lung bases. No crepitation/rhonchi Cardiovascular: Regular rate, Regular Rhythm, Normal S1, Normal S2, No murmurs Abdomen: Bowel Sounds Present, Soft, Non Tender, Non-Distended : No renal angle tenderness. No suprapubic tenderness. Extremities: No edema, Capillary Refill Less than 3 Seconds Skin: Mild itching and rash on left greer, chronic. Seems eczema/dermatitis Musculoskeletal: No Tenderness to Palpation of Joints or Extremities Neurological: Cranial nerves II-XII grossly intact, DTR 2+/4 and Symmetrical, Neuro grossly intact Psych/Mental Status: Normal Affect, Appropriate. Assessment & Plan Assessment/Plan (1) Non-ST elevation [place] (NSTEMI): (2) Elevated blood pressure reading: PLAN: Plan This 66-year-old gentleman was admitted with left armpit/shoulder pain with radiation to bilateral periscapular area along with worsening shortness of exertion for 1 year. 1. Non-STEMI: Patient with elevated PSA. Initial high sensitive troponin was 253. Serial troponin shows 998 and 2011. Twelve-lead EKG individually reviewed and does not show significant changes. First EKG sinus bradycardia LAD and the second sinus bradycardia 55 beats minute with no significant ST-T dynamic changes. Chest pain Varisource bibasilar crepitations with poor inspiration. D-dimer was elevated but age-adjusted was normal. CTPA showed no pulmonary embolism or dissection. Patient on aspirin, heparin drip. Morphine as needed. On pravastatin, allergic to atorvastatin. Serum magnesium and phosphorus level normal. K3.51. 40 M EQ K. Dur, 1 dose of replacement Informatics Educator is consulted. Elevated blood pressure the diagnosis of hypertension Patient noted to have elevated blood pressure. Started on lisinopril. Beta- oscar has deferred at this time as patient had sinus bradycardia and beta- oscar can be added in due to cause. Trend BP. Dyspnea on exertion Echocardiogram ordered. DVT prophylaxis: on heparin drip Charges/Coding Visit Charges Inpatient E&M: 50549 Subs Hosp L2
[2022-07-17 10:24] LABS: Magnesium 2.1 mg/dL (1.6-2.6)
[2022-07-17] MEDS: Potassium Chloride Oral Tablet 20 MEQ 40 MEQ PO (11:09)
[2022-07-17 12:01] LABS: Partial Thromboplast Time 40.5 Seconds (24.1-36.2)
--- NOTE | 2022-07-17 13:49 | CON.PCM.CA_ITS ---
Assessment & Plan Assessment/Plan (1) Hyperlipidemia: (2) Elevated blood pressure reading: (3) Non-ST elevation NM (NSTEMI): PLAN: Plan 66-year-old patient seen and evaluated today at bedside along with the nursing staff Family and daughter at bedside Comfortable resting in bed no symptoms of chest pain reported today Cardiovascular exam essentially normal Electrocardiogram showed change in the inferior lead Had a significant elevation of cardiac biomarkers with high sensitive troponin With a clinical diagnosis of non-ST elevation NM Cardiac care plan recommendations; 1. I reviewed the current medication will continue on heparin, aspirin, pravastatin. Patient has allergy to atorvastatin 2. Echocardiogram in the morning 3. We will proceed with cardiac catheterization, right radial artery approach HPI Consult Data Date of Consult: 07/17/22 Attending Care Provider: This patient six 6-year-old presented with symptoms of chest pain Described typical symptoms of angina retrosternal chest pain on exertion In the ER he was evaluated by EKG a series of cardiac biomarker was high sensitive troponin which showed evidence of non-ST elevation NM. He does not have any prior cardiac history. HPI Narrative Reason for Consultation: Patient with non-ST elevation NM/non-STEMI HPI Narrative: KETAN COTTON, is a 66 M who presents [facility] Medical History Chest pain Enthesopathy of hip region Generalized anxiety disorder GERD (gastroesophageal reflux disease) Hemorrhoids History of vitamin D deficiency Hyperlipidemia Home Medications esomeprazole magnesium 40 mg capsule,delayed release 40 mg PO DAILY Check with primary doctor 07/16/17 [History Last Taken 07/16/17] naproxen 500 mg tablet 500 mg PO BID PRN Pain 08/16/19 [History Last Taken Unknown] ferrous sulfate 325 mg (65 mg iron) tablet 325 mg PO DAILY Check with primary doctor 07/16/22 [History Last Taken Unknown] multivitamin 1 tab PO DAILY Check with primary doctor 07/16/22 [History Last Taken Unknown] tamsulosin 0.4 mg capsule 0.4 mg PO DAILY Check with primary doctor 07/16/22 [History Last Taken Unknown] testosterone cypionate 200 mg/mL intramuscular oil 200 mg IM QMONTH Check with primary doctor 07/16/22 [History Last Taken Unknown] pravastatin 80 mg tablet 80 mg PO DAILY cholesterol 07/17/22 [History Last Taken Unknown] Allergy/AdvReac Type Severity Reaction Status Date / Time erythromycin base Allergy Intermediate Nausea/Vom/ Verified 07/16/22 17:59 Diarrhea niacin Allergy Intermediate Hives Verified 07/16/22 17:59 [From Niaspan Extended-Release] Penicillins Allergy Unknown Verified 07/16/22 17:59 atorvastatin AdvReac Intermediate myalgias Verified 07/16/22 17:59 cerivastatin [From Baycol] AdvReac Intermediate leg cramps Verified 07/16/22 17:59 Family History Father Alzheimer's disease Mother CAD (coronary artery disease) Diabetes Heart disease open heart surgery History of motor vehicle accident Surgical History H/O arthroscopy of knee History of foot surgery (~07/2019) History of hemorrhoidectomy History of open reduction and internal fixation (ORIF) procedure History of surgery on upper extremity History of tonsillectomy History of umbilical hernia repair History of varicose vein stripping S/P excision of neuroma Social History Smoking Status: Never smoker alcohol intake: current alcohol intake frequency: a few times a month substance use type: does not use caffeine: Yes Type: coffee Number of servings: 1 ROS ROS Narrative 14 system review is unremarkable apart from the current presentation of symptoms of chest pain typical of angina No other associated symptoms reported. Symptoms of chest pain resolved at rest. Physical Exam Cardio Cardio Narrative: General exam Patient alert orientated x3 Not in acute distress Cardiovascular exam; cardiac rhythm is normal sinus rhythm S1-S2 is regular Chest exam is clear to auscultation bilateral. Risk Stratification Risk Stratification Applicable: Yes Age >/= 65: Yes >/= 3 CAD Risk Factors (HTN, HLD, DM, family hx of CAD, or current smoker): Yes Aspirin Use in the Past 7 Days: Yes Severe Angina (>/= episodes in 24 hours): Yes EKG ST Changes >/= 0.5mm: Yes Positive Cardiac Marker: Yes RADHA Risk Stratification Score: 6 RADHA % Risk: 41% Risk Objective Data Vital Signs: Vital Signs Temp Pulse Resp BP Pulse Ox O2 Del Method 97.9 F 59 L 16 129/93 H 99 Room Air 1218/22 08:15 07/17/22 08:19 07/17/22 08:15 07/17/22 08:15 07/17/22 08:30 07/17/22 08:30 Oxygen Delivery Method Room Air Weight: 209 lb 7.026 oz Body Mass Index (BMI) 30.0 Intake & Output: Intake and Output for Last 24 Hours 07/15/22 07/16/22 07/17/22 23:59 23:59 23:59 Intake Total 320.83 / 320.83 Balance 320.83 / 320.83 Lab / Micro Data Result Diagrams: 07/17/22 03:46 07/17/22 03:46 Labs: Laboratory Results - last 24 hr 07/16/22 18:56: WBC 8.6, RBC 5.17, Hgb 16.2, Hct 46.9, MCV 90.7, MCH 31.3, MCHC 34.5, RDW Std Deviation 41.5, RDW Coeff of Tere 12.6, Plt Count 187, MPV 10.4, Immature Gran % (Auto) 0.200, Neut % (Auto) 70.9 H, Lymph % (Auto) 17.0 L, [place] % (Auto) 10.5 H, Eos % (Auto) 1.2, Baso % (Auto) 0.2, Absolute Neuts (auto) 6.1, Absolute Lymphs (auto) 1.46, Nucleated RBC % 0 07/16/22 18:56: Sodium 142, Potassium 4.0, Chloride 109 H, Carbon Dioxide 30.0, Anion Gap 3 L, BUN 21 H, Creatinine 1.01, Estim Creat Clear Calc 71.94, Est GFR (MDRD) Af Amer 95, Est GFR (MDRD) Non-Af 78, BUN/Creatinine Ratio 20.8 H, Glucose 92, Calcium 8.9, Troponin I High Sens 253 H* 07/16/22 18:56: D-Dimer Quant (PE/DVT) 0.53 H* 07/16/22 18:56: PT 13.9, INR 1.1, APTT 28.6 07/16/22 21:10: Troponin I High Sens 928 H* 07/17/22 01:08: Troponin I High Sens 2011 H* 07/17/22 03:46: WBC 7.5, RBC 5.01, Hgb 15.6, Hct 46.0, MCV 91.8, MCH 31.1, MCHC 33.9, RDW Std Deviation 42.5, RDW Coeff of Tere 12.6, Plt Count 179, MPV 11.0, Immature Gran % (Auto) 0.300, Neut % (Auto) 60.3, Lymph % (Auto) 21.7, [place] % (Auto) 13.9 H, Eos % (Auto) 3.1, Baso % (Auto) 0.7, Absolute Neuts (auto) 4.5, Absolute Lymphs (auto) 1.62, Nucleated RBC % 0 07/17/22 03:46: Sodium 140, Potassium 3.5, Chloride 107, Carbon Dioxide 28.0, Anion Gap 5, BUN 21 H, Creatinine 0.88, Estim Creat Clear Calc 85.26, Est GFR (MDRD) Af Amer 112, Est GFR (MDRD) Non-Af 92, BUN/Creatinine Ratio 23.9 H, Glucose 100, Calcium 8.3 L, Triglycerides 188, Cholesterol 165, LDL Cholesterol 83, VLDL Cholesterol 38, HDL Cholesterol 44 07/17/22 03:46: APTT 55.1 H 07/17/22 03:46: Phosphorus 3.0, Magnesium 2.1 07/17/22 11:05: APTT 40.5 H Cardiology Labs/Tests 07/16/22 18:56: WBC 8.6, RBC 5.17, Hgb 16.2, Hct 46.9, MCV 90.7, MCH 31.3, MCHC 34.5, Plt Count 187, MPV 10.4, Immature Gran % (Auto) 0.200, Neut % (Auto) 70.9 H, Lymph % (Auto) 17.0 L, [place] % (Auto) 10.5 H, Eos % (Auto) 1.2, Baso % (Auto) 0.2, Absolute Neuts (auto) 6.1, Nucleated RBC % 0 07/16/22 18:56: Sodium 142, Potassium 4.0, Chloride 109 H, Carbon Dioxide 30.0, Anion Gap 3 L, BUN 21 H, Creatinine 1.01, Est GFR (MDRD) Af Amer 95, Est GFR (MDRD) Non-Af 78, BUN/Creatinine Ratio 20.8 H, Glucose 92, Calcium 8.9 07/16/22 18:56: D-Dimer Quant (PE/DVT) 0.53 H* 07/16/22 18:56: PT 13.9, INR 1.1, APTT 28.6 07/17/22 03:46: WBC 7.5, RBC 5.01, Hgb 15.6, Hct 46.0, MCV 91.8, MCH 31.1, MCHC 33.9, Plt Count 179, MPV 11.0, Immature Gran % (Auto) 0.300, Neut % (Auto) 60.3, Lymph % (Auto) 21.7, [place] % (Auto) 13.9 H, Eos % (Auto) 3.1, Baso % (Auto) 0.7, Absolute Neuts (auto) 4.5, Nucleated RBC % 0 07/17/22 03:46: Sodium 140, Potassium 3.5, Chloride 107, Carbon Dioxide 28.0, Anion Gap 5, BUN 21 H, Creatinine 0.88, Est GFR (MDRD) Af Amer 112, Est GFR (MDRD) Non-Af 92, BUN/Creatinine Ratio 23.9 H, Glucose 100, Calcium 8.3 L, Triglycerides 188, Cholesterol 165, LDL Cholesterol 83, VLDL Cholesterol 38, HDL Cholesterol 44 07/17/22 03:46: APTT 55.1 H 07/17/22 03:46: Phosphorus 3.0, Magnesium 2.1 07/17/22 11:05: APTT 40.5 H Rhythm: Normal sinus rhythm EKG: Nonspecific changes noted in the inferior lead. Radiography Diagnostic Testing: Radiology Impression Chest X-Ray 07/16/22 18:42 IMPRESSION: Poor inspiration with some bibasilar atelectasis. Electronically Signed: Curt Hall MD at 19:27 EST , Chest CTA 07/16/22 19:22 IMPRESSION: Normal CTA chest examination, without a demonstrated pulmonary embolism or arterial dissection. Electronically Signed: Curt Hall MD at 20:46 EST ,
[2022-07-17] MEDS: Heparin Injection (Vial) 5,000 UNIT/ML VIAL IV (16:01)
[2022-07-17] MEDS: Acetaminophen 325 MG Tablet 650 MG PO (21:11)
[2022-07-17] MEDS: Pravastatin 80 MG Tablet PO (21:29)
[2022-07-17] MEDS: HEPARIN/D5w 25,000 UNITS 25,000 UNITS/250 ML IV.SOLN. 12 UNITS CONT INF (21:33)
[2022-07-17 22:12] LABS: Partial Thromboplast Time 53.4 Seconds (24.1-36.2)
[2022-07-18] VITALS (16 sets, daily range): BP systolic 118–155; BP diastolic 71–93; PULSE 48–75; RESP 13–18; TEMP 36.2–36.9; O2SAT 96–100
--- NOTE | 2022-07-18 04:19 | NURSING ---
Nurse received care of this patient at this time.
--- NOTE | 2022-07-18 05:55 | EKG12_ITS ---
Test Reason : AM EKG Blood Pressure : / mmHG Vent. Rate : 060 BPM Atrial Rate : 060 BPM P-R Int : 164 ms QRS Dur : 098 ms QT Int : 430 ms P-R-T Axes : 055 -34 016 degrees QTc Int : 430 ms Normal sinus rhythm Left axis deviation Nonspecific T wave abnormality Abnormal ECG Confirmed by DMITRIY TRUONG, ALONDRA ([id number]), editorial cartoonist DIANA YOUNGER ([id number]) on 07/20/2022 10:48:51 AM Referred By: DR OTOOLE Confirmed By:ALONDRA IZAGUIRRE MD
[2022-07-18] MEDS: Lisinopril 2.5 MG Tablet PO (06:25)
[2022-07-18] MEDS: Aspirin E.C. 81 MG Tablet PO (06:25)
[2022-07-18] MEDS: 0.9% Normal Saline 1,000 ML 15 ML IV (06:58)
[2022-07-18 07:03] LABS: Absolute Lymphocyte Count 1.36 X10^3/uL (0.83-4.51); Basophil# 0.03 X10^3/uL; Basophil% 0.5 % (0-1); Eosinophil# 0.12 X10^3/uL; Eosinophils% 1.9 % (0-5); Hematocrit 47.9 % (40-54); Hemoglobin 16.1 g/dL (13.0-16.5); Lymphocyte # 1.36 X10^3/ul (0.83-4.51); Lymphocyte % 21.3 % (19-41); Mean Corp Hgb Conc 33.6 g/dL (32-36); Mean Corpuscular Hgb 30.8 pg (27.0-32.0); Mean Corpuscular Volume 91.8 fL (80-94); Mean Platelet Vol. 10.8 fl (6.2-12.0); Monocyte# 0.91 X10^3/uL; Monocyte% 14.2 % (0-10); NRBC Flagged by Analyzer 0 % (0-5); Neutrophil # 3.95 X10^3/uL (2.7-7.7); Neutrophil % 61.8 % (47-70); Platelet Count 180 K/mm3 (150-450); RBC Distribution Width CV 12.4 % (11.6-14.6); Red Blood Count 5.22 M/mm3 (4.6-6.2); White Blood Count 6.4 K/mm3 (4.4-11.0)
[2022-07-18] MEDS: Acetaminophen 325 MG Tablet 650 MG PO ×2 (07:04→15:55)
[2022-07-18 07:17] LABS: Partial Thromboplast Time 62.4 Seconds (24.1-36.2)
[2022-07-18 07:26] LABS: Anion Gap 2 (5-15); BUN 21 mg/dL (7-18); BUN/Creat Ratio 19.6 RATIO (10-20); Calcium,Total 8.9 mg/dL (8.5-10.1); Chloride 109 mmol/L (98-107); Creatinine, Serum 1.07 mg/dL (0.70-1.30); EST Glomerular Filtration Rate 73 mL/min (>60); Est Glom Filt Rate - Afr Amer 89 mL/min (>60); Estimated Creatinine Clearance 70.12 ml/min; Glucose 112 mg/dL (74-106); Potassium 4.2 mmol/L (3.5-5.1); Sodium Level 140 mmol/L (136-145)
--- NOTE | 2022-07-18 08:06 | NURSING ---
Attempted to call report to calibration laboratory technician Florentino. No one available to take report. Cath time now is unknown.
--- NOTE | 2022-07-18 10:16 | PN.HOSP_ITS ---
Subjective Subjective Patient not had chest pain. Had cardiac cath in the morning which showed mid LAD lesion which was stented. Seen and examined in the ICU after cardiac cath. Objective Data Objective Data Vital Signs: Vital Signs Temp Pulse Resp BP Pulse Ox O2 Del Method 98.6 F 59 L 18 118/79 98 Room Air 07/17/22 21:15 07/18/22 07:00 07/17/22 21:15 07/17/22 21:15 07/18/22 08:25 07/18/22 08:25 Oxygen Delivery Method Room Air Weight: 209 lb 7.026 oz Body Mass Index (BMI) 30.0 Intake & Output: Intake and Output for Last 24 Hours 07/16/22 07/17/22 07/18/22 23:59 23:59 23:59 Intake Total 1046.53 / 1046.53 113 / 113 Balance 1046.53 / 1046.53 113 / 113 Lab / Micro Data Result Diagrams: 07/18/22 06:50 07/18/22 06:50 Labs: Laboratory Results - last 24 hr 07/17/22 03:46: Phosphorus 3.0, Magnesium 2.1 07/17/22 11:05: APTT 40.5 H 07/17/22 22:00: APTT 53.4 H 07/18/22 06:50: WBC 6.4, RBC 5.22, Hgb 16.1, Hct 47.9, MCV 91.8, MCH 30.8, MCHC 33.6, RDW Std Deviation 42.0, RDW Coeff of Tere 12.4, Plt Count 180, MPV 10.8, Immature Gran % (Auto) 0.300, Neut % (Auto) 61.8, Lymph % (Auto) 21.3, [place] % (Auto) 14.2 H, Eos % (Auto) 1.9, Baso % (Auto) 0.5, Absolute Neuts (auto) 4.0, Absolute Lymphs (auto) 1.36, Nucleated RBC % 0 07/18/22 06:50: Sodium 140, Potassium 4.2, Chloride 109 H, Carbon Dioxide 29.0, Anion Gap 2 L, BUN 21 H, Creatinine 1.07, Estim Creat Clear Calc 70.12, Est GFR (MDRD) Af Amer 89, Est GFR (MDRD) Non-Af 73, BUN/Creatinine Ratio 19.6, Glucose 112 H, Calcium 8.9, Magnesium 2.0 07/18/22 06:50: APTT 62.4 H Physical Exam Narrative Physical exam No acute event overnight. Patient has healthy lifestyle. 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 He was admitted with pain over the left arm/armpit with radiation to bilateral periscapular area, more prominent in the left side on lifting mattress but also had dyspnea on exertion progressively for last 1 year General: Alert, Oriented x3, Cooperative HEENT: Atraumatic, PERRLA, EOMI, Normocephalic Oral: No Gingival or Mucosal Lesions/ Ulcerations Neck: Supple, No JVD, Negative Carotid Bruits Lungs: Air entry equal in bilateral lung bases. No crepitation/rhonchi Cardiovascular: Regular rate, Regular Rhythm, Normal S1, Normal S2, No murmurs Abdomen: Bowel Sounds Present, Soft, Non Tender, Non-Distended : No renal angle tenderness. No suprapubic tenderness. Extremities: No edema, Capillary Refill Less than 3 Seconds Skin: Mild itching and rash on left greer, chronic. Seems eczema/dermatitis Musculoskeletal: No Tenderness to Palpation of Joints or Extremities Neurological: Cranial nerves II-XII grossly intact, DTR 2+/4 and Symmetrical, Neuro grossly intact Psych/Mental Status: Normal Affect, Appropriate. Assessment & Plan Assessment/Plan (1) Non-ST elevation PA (NSTEMI): (2) Elevated blood pressure reading: PLAN: Plan This 66-year-old gentleman was admitted with left armpit/shoulder pain with radiation to bilateral periscapular area along with worsening shortness of exertion for 1 year. 1. Non-STEMI due to mid LAD lesion: Patient with elevated PSA. Initial high sensitive troponin was 253. Serial troponin shows 998 and 2011. Twelve-lead EKG individually reviewed and does not show significant changes. First EKG sinus bradycardia LAD and the second sinus bradycardia 55 beats minute with no significant ST-T dynamic changes. Chest pain Varisource bibasilar crepitations with poor inspiration. D-dimer was elevated but age-adjusted was normal. CTPA showed no pulmonary embolism or dissection. Patient on aspirin, heparin drip. Morphine as needed. On pravastatin, allergic to atorvastatin. Serum magnesium and phosphorus level normal. K3.51. 40 M EQ K. Dur, 1 dose of replacement 07/18: Cardiac cath showed ruptured plaque in mid LAD about 70% which required PCI and stenting. RCA large dominant with low-flow but no obstructive atherosclerosis. Left circumflex large vessel normal angiographically. Patient on baby aspirin and Brilinta added. Heart rate low in low 40s to 50s but patient asymptomatic therefore not on beta-oscar. Low-dose lisinopril 2.5 mg added. Patient has myalgia with atorvastatin and therefore on pravastatin 80 mg daily. Discussed with the consulting sales manager. Cardiac cath findings discussed with the patient and patient's . Cardiac rehab after discharge. Elevated blood pressure the diagnosis of hypertension Patient noted to have elevated blood pressure. Started on lisinopril. Beta- oscar has deferred at this time as patient had sinus bradycardia and beta- oscar can be added in due to cause. Trend BP. Dyspnea on exertion: 2D echo shows EF 55% with mild TR. PASP 30 mmHg. DVT prophylaxis: Was given heparin during Tube [employer]. Charges/Coding Visit Charges Inpatient E&M: 06163 Subs Hosp L2
--- NOTE | 2022-07-18 10:19 | NURSING ---
Report called to nurse Mendez for pt to have heart cath.
--- NOTE | 2022-07-18 10:24 | CASEMGMT ---
Tertiary facilities in-network with patient's insurance: [facility], [facility], [facility], , [facility], [place], [place]
--- NOTE | 2022-07-18 12:01 | NURSING ---
Report called to Sofía for pt to go to ICU following heart cath.
--- NOTE | 2022-07-18 12:15 | PCI.CARDCATH ---
PCI Cardiac Cath Report PCI Report: Procedure performed; 1 moderate sedation 2. Selective left cholangiography 3. Selective right coronary angiography 4. Successful PCI of the culprit which is ruptured plaque at the mid LAD with predilatation Using 2.5 x 15 mm balloon followed by placement of a drug-eluting stent resolute [place] 3 x 26 mm Postdilated with with 3.5 x 15 mm NC balloon. Improvement of RADHA flow from RADHA II to RADHA-3 . reduction of stenosis to mid LAD from 70% to 0% 5. Placement of TR band to close the right radial artery arteriotomy site. Consent; Risk and benefits of procedure explained detail to patient elected to proceed informed consent obtained Preprocedure diagnosis; This is a 66-year-old patient presented to [facility] complaining of symptoms of chest pain With radiation to the left arm, typical of angina Subsequent evaluation in the hospital with EKG cardiac markers showed evidence of non-ST elevation TX/non-STEMI with significant elevation of high sensitive troponin. Patient treated with heparin, aspirin statin And his symptoms of chest pain improved significantly. Diagnostic catheter used; Access from the right radial artery with a 6 [place] sheath Terumo sheath 1. 5 [place]uran JL 3.5 2. 5 [place] JR4 3. Interventional equipment used; 1. 6 [place] EBU guide catheter 2. 0.014 180 cm run-through extra floppy straight guidewire 3. 2.5 x 15 mm balloon 4. 3 x 26 mm resolute José/drug-eluting stent 5. 3.5 x 15 mm NC balloon Procedure in detail; Will proceed with diagnostic catheter, 5 [place] JL 3.5 advanced ascending aorta cannulated left main without difficulty, multiple views of the left main coronary system obtained Following this catheter exchanged for 5 [place] JR4 advanced [place] and cannulated the RCA and multiple views RCA obtained Following this the catheter removed. And angiographic films study noted culprit lesion is mid LAD. And will proceed with the interventional plan Patient was given 180 mg of Brilinta and he was given aspirin Heparin was used a total of 8000 IV with an ACT level acceptable We then proceeded with interventional guide 6 [place] 3.5 EBU guide advanced [place] cannulated the left main without difficulty Following this angiographic view of the left Cholestin were obtained and then we proceed with the run-through guidewire across the lesion in the mid LAD, predilated the lesion followed by placement of drug-eluting stent Followed by postdilatation. Patient had symptoms of left arm discomfort He was given nitroglycerin and fentanyl improve his symptoms. This patient had echocardiogram which showed no significant valvular abnormality with overall LV function mildly reduced Coronary angiography; 1. Left main is short, bifurcating into LAD and the left circumflex Angiographic data left main coronary artery with no significant atherosclerosis 2. Left anterior descending is a large artery reach all the way to the apex, at the site of the wrist diagonal branch there is thrombotic lesion noted to the ruptured plaque and a 70% stenosis With a RADHA II flow in the LAD, following the intervention using the balloon dilatation and drug-eluting stent were able to achieve a RADHA-3 flow with reduction of stenosis to 0% Diagonal branches are small D1 and D2 with ostial lesion involving the D1 and RADHA III flow 3. Left circumflex is a large vessel OM1, high normal angiographically The left circumflex angiographically normal 4. RCA large dominant is low flow noted in the RCA as well however there is no obstructive atherosclerosis Conclusion; #1 successful PCI of the culprit lesion which involves the mid LAD with a ruptured plaque as explained Patient will be admitted to the intensive care unit over the night Will continue on DAPT with Brilinta 90 mg twice daily and low-dose aspirin for 1 year followed by low-dose aspirin indefinitely 2. We will add atorvastatin 80 mg to his current treatment 3. Noted his heart rate is a slow in the range of 50-60 no beta-oscar 4. We will add low-dose LYDIA inhibitor as tolerated by his blood pressure No complication in the Counseling Specialist. I discussed the finding of cardiac catheterization in detail with the patient, family daughter who work as a nurse here at [facility] [employer] as well as the And emphasized strongly the importance of continuing on the dual antiplatelet therapy with Brilinta and aspirin in addition to the statin. We will set up the patient for cardiac rehab program stage I Patient will follow up with [facility] cardiology group Dr. Bower for continuation of cardiac care as an outpatient. He reviewed the echocardiogram of this patient. Fernando Shelton MD,[facility]
--- NOTE | 2022-07-18 12:28 | EKG12_ITS ---
Test Reason : POST CATH Blood Pressure : / mmHG Vent. Rate : 058 BPM Atrial Rate : 058 BPM P-R Int : 170 ms QRS Dur : 094 ms QT Int : 444 ms P-R-T Axes : 050 -38 036 degrees QTc Int : 435 ms Sinus bradycardia Left axis deviation Nonspecific T wave abnormality Abnormal ECG Confirmed by DMITRIY TRUONG, ALONDRA ([id number]), editor producer DIANA YOUNGER ([id number]) on 07/20/2022 11:01:45 AM Referred By: DR WEBB Confirmed By:ALONDRA IZAGUIRRE MD
[2022-07-18] MEDS: 0.9% Normal Saline 1,000 ML 75 ML IV (12:30)
--- NOTE | 2022-07-18 13:00 | CASEMGMT ---
RN CM NOTE: Initial RN CM not completed at this time. Pt went to laboratory animal caretaker today and then transferred to ICU. RN CM to attempt to complete assessment tomorrow. Carmen TIPTONN RN CM
--- NOTE | 2022-07-18 14:10 | CRPHASE1_ITS ---
Patient Communication PHII Cardiac Rehab Discussed with Patient:: Yes Guide to Cardiac Rehab Given to Patient:: Yes Cardiac Rehab Facility Choice List Given to Patient:: Yes Choice Program [facility] CR PHII:: Communication Given to CR Choice Program Other:: Communication Given to CR Instructional Materials Director:: Fernando Shelton Phase II Cardiac Rehab:: Yes Sessions:: 36 sessions - 3 days/wk, 12 weeks Cardiac Rehabilitation Info Cardiac Rehabilitation Program Information: Cardiac Rehab The cardiac rehab team at [facility] consists of highly skilled exercise physiologists, nurses, respiratory therapists and physicians working together with you. Our purpose is to help you have a full recovery and achieve the goals you set for yourself. Over the years many of our patients have returned to activities they assumed they would never do again! We can help restore your confidence and motivation to make lifestyle changes that can have a significant impact on your health and quality of life! We can help answer questions and concerns you may have about exercise, lifestyle, medications, diet, stress and anxiety which are common following a hospitalization. WE monitor ECG and vital signs during exercise and discuss your progress with you and report to your physician(s). Cardiac Rehab is proven to help reduce readmissions, improve functional capacity and lower recurrence of problems with your heart. Our Cardiac Rehab program is Certified by the [place] [employer]-Vascular and Pulmonary [employer] (AACVPR) and Accredited by the [place] [employer] through our [facility]. You can contact us at . We invite you to call us with your questions or to get started in our program. If you have other questions or concerns be sure to ask your physician/provider during your follow-up visit. WE look forward to seeing you!
--- NOTE | 2022-07-18 14:10 | CRPH1.INSTRU ---
General Education CAD and cardiac anatomy and function:: Patient communicates acknowledgment Explanation of diagnoses and procedures:: Patient communicates acknowledgment Sign/Symptoms of NH:: Patient communicates acknowledgment Antiplatelet therapy: Patient communicates acknowledgment Smoking Patient Nicotine/Smoking Risk Factors Are:: Never smoked Dyslipidemia Patient Dyslipidemia Risk Factors Are:: Total Cholesterol, Triglycerides, HDL, LDL Recommendations Include:: Lipid profile provided, Reviewed NCEP/ATP guidelines, Therapeutic Lifestyle Change dietary guidelines Dyslipidemia Response Code:: Patient communicates acknowledgment Overweight/Obesity Patient Overweight/Obesity Risk Factors Are:: Obesity - > or = 30 Recommendations Include:: Weight loss of 5-10%, Reduced calorie diet, Exercise 5-7 times/week Overweight/Obesity:: Patient communicates acknowledgment Hypertension Patient Hypertension Risk Factors Are:: No documented hx of HTN Diabetes Patient Diabetes Risk Factors Are:: No documented hx of diabetes Metabolic Syndrome Patient Metabolic Syndrome Risk Factors Are [3 of 5]:: Fasting blood sugar > 100 mg/dL, Waist circumference > 35 [female] or 40 [male], Low HDL <40 [male] or < 50 [female] Recommendations Include:: Reinforce compliance to risk factor modifications, Encouraged follow-up with Primary Care Physician Metabolic Syndrome Response Code:: Patient communicates acknowledgment Sedentary Patient Sedentary Risk Factors Are:: Lack of regular exercise Recommendations Include:: Aerobic exercise 5-7 times/week for 20-30 minutes continuously, Benefits of regular exercise, Discussed home walking program, Monitored Outpatient Cardiac Rehab Sedentary Response Code:: Patient communicates acknowledgment Stress Recommendations Include:: Identification of stressors, and assessment of coping skills, Stress management techniques Stress Response Code:: Patient communicates acknowledgment
[2022-07-18] MEDS: Pantoprazole Sodium 40 MG Tablet PO (14:36)
[2022-07-18] MEDS: Ferrous Sulfate 325 MG Tablet PO (14:36)
[2022-07-18] MEDS: 0.9% Saline Lock 10 ML Syringe IV (14:37)
[2022-07-18] MEDS: Tamsulosin HCl 0.4 MG Capsule PO (14:37)
[2022-07-18] MEDS: Multivitamins,Therapeutic Tablet 1 TABLET PO (14:40)
[2022-07-18] MEDS: Pravastatin 80 MG Tablet PO (21:44)
[2022-07-19 01:46] VITALS: BP 145/98; PULSE 73; RESP 16; TEMP 36.7; O2SAT 97
[2022-07-19] MEDS: Acetaminophen 325 MG Tablet 650 MG PO (01:55)
[2022-07-19 03:29] VITALS: PULSE 70
[2022-07-19 04:46] LABS: Absolute Lymphocyte Count 1.03 X10^3/uL (0.83-4.51); Absolute Neutrophil Count 7.2 X10^3/uL (2.0-7.7); Basophil# 0.03 X10^3/uL; Basophil% 0.3 % (0-1); Eosinophil# 0.06 X10^3/uL; Eosinophils% 0.6 % (0-5); Hematocrit 46.1 % (40-54); Hemoglobin 15.4 g/dL (13.0-16.5); Lymphocyte # 1.03 X10^3/ul (0.83-4.51); Lymphocyte % 11.1 % (19-41); Mean Corp Hgb Conc 33.4 g/dL (32-36); Mean Corpuscular Hgb 30.7 pg (27.0-32.0); Mean Corpuscular Volume 91.8 fL (80-94); Monocyte# 0.92 X10^3/uL; NRBC Flagged by Analyzer 0 % (0-5); Neutrophil # 7.17 X10^3/uL (2.7-7.7); Neutrophil % 77.7 % (47-70); Platelet Count 186 K/mm3 (150-450); RBC Distribution Width CV 12.5 % (11.6-14.6); RBC Distribution Width SD 42.1 fl (35.1-43.9); Red Blood Count 5.02 M/mm3 (4.6-6.2); White Blood Count 9.2 K/mm3 (4.4-11.0)
[2022-07-19 05:22] LABS: ALB/GLOB Ratio 0.9 RATIO (0.9-2.4); AST(SGOT) 41 U/L (15-37); Alanine Aminotransfer ALT/SGPT 31 U/L (16-61); Albumin, Serum 3.1 g/dL (3.2-5.0); Alkaline Phosphatase 60 U/L (45-117); Anion Gap 5 (5-15); BUN 19 mg/dL (7-18); BUN/Creat Ratio 20.5 RATIO (10-20); Calcium,Total 8.8 mg/dL (8.5-10.1); Chloride 108 mmol/L (98-107); Creatinine, Serum 0.93 mg/dL (0.70-1.30); EST Glomerular Filtration Rate 87 mL/min (>60); Est Glom Filt Rate - Afr Amer 105 mL/min (>60); Estimated Creatinine Clearance 80.68 ml/min; Globulin 3.3 g/dL (2.2-4.2); Glucose 107 mg/dL (74-106); Potassium 3.9 mmol/L (3.5-5.1); Protein, Total 6.4 g/dL (6.4-8.2); Sodium Level 140 mmol/L (136-145)
[2022-07-19 05:29] VITALS: BP 136/88; PULSE 74; RESP 16; TEMP 36.6; O2SAT 97
[2022-07-19] MEDS: 0.9% Saline Lock 10 ML Syringe IV (05:31)
--- NOTE | 2022-07-19 07:54 | DCINST_ITS ---
Discharge Instructions Diet Discharge Diet: Low fat / Low cholesterol and 2000 mg Sodium Diet Activity Discharge Activity: Return to Normal Activity Weight Bearing Status: Weight bearing as tolerated (No heavy lifting/grocery bag from right hand at least for 1 week) and - Dressing / Incision Call your doctor if you observe: Fever of 101 or Higher, Coldness, Increased Pain, Numbness or Tingling, Change in Color, Inability to urinate, Inability to have a bowel movement, Shortness of breath, Dizziness, Fainting spells, Swelling in the ankles, Chest pain, Prolonged hiccupping, Increased palpitations ( irregular heartbeat), Calf discomfort and Uncontrolled pain Follow Up Care Test Results: Test results from this visit will be discussed in further detail at your follow- up appointment, if applicable. Discharge Plan Admission Admit Date/Time: 07/16/22 21:40 Primary Reason for Your Visit: Non-STEMI Attending Provider: Brown Lorenz Primary Care Provider: Carl Franco Consulting Providers: Fernando Shelton ; Ruy Null Instructions Additional Instructions / Restrictions: Patient to follow-up in cardiac rehab Discharge Orders/Prescriptions Prescriptions: New aspirin 81 mg Tablet,Delayed Release (Dr/Ec) 81 mg PO BREAKFAST Qty: 30 3RF nitroglycerin 0.4 mg Tablet, Sublingual 0.4 mg sublingual Q5M PRN (Reason: Cardiac/Chest Pain) Qty: 30 0RF lisinopril 5 mg Tablet 5 mg PO DAILY Qty: 30 2RF Brilinta 90 mg Tablet 90 mg PO BID Qty: 60 2RF rosuvastatin 20 mg tablet 20 mg PO QHS Qty: 30 2RF metoprolol succinate [Toprol XL] 25 mg tablet extended release 24 hr 12.5 mg PO DAILY 60 Days Qty: 30 2RF Rx Instructions: Hold for heart less than 60 or systolic blood pressure less than 100 mmHg. Continued esomeprazole magnesium 40 MG capsule,delayed release(DR/EC) 40 mg PO DAILY multivitamin Tablet 1 tab PO DAILY tamsulosin 0.4 mg capsule 0.4 mg PO DAILY ferrous sulfate 325 mg (65 mg iron) Tablet 325 mg PO DAILY testosterone cypionate 200 mg/mL oil 200 mg IM QMONTH Held naproxen 500 mg tablet 500 mg PO BID PRN (Reason: Pain) Hold Instructions: Hold for 1 week. Discontinued pravastatin 80 mg Tablet 80 mg PO DAILY Referrals / Follow Up: Carl Franco MD [Primary Care Provider] - Within 2 Weeks Ethan Bower MD [Med Staff - Active Staff] - Within 1 Month Disposition Disposition (needs filled in before D/C Order can be placed): Home, Self Care
[2022-07-19 08:00] VITALS: BP 132/94; PULSE 59
[2022-07-19] MEDS: Lisinopril 2.5 MG Tablet PO (08:22)
[2022-07-19] MEDS: Multivitamins,Therapeutic Tablet 1 TABLET PO (08:22)
[2022-07-19] MEDS: Ferrous Sulfate 325 MG Tablet PO (08:22)
[2022-07-19] MEDS: Pantoprazole Sodium 40 MG Tablet PO (08:22)
[2022-07-19] MEDS: Tamsulosin HCl 0.4 MG Capsule PO (08:22)
[2022-07-19] MEDS: Aspirin E.C. 81 MG Tablet PO (08:22)
[2022-07-19] MEDS: Lisinopril 5 MG Tablet PO (08:22)
--- NOTE | 2022-07-19 08:43 | PCM.DC.SUM ---
Providers Date of Admission: 07/16/22 Date of Discharge: 07/19/22 Primary Care Physician: Dr. Carl Ware MD Consultations 07/16/22 22:56 Consult: Cardiology Routine Consulting Provider: Fernando Shelton Reason for Consult: NSTEMI EMERGENT Consult: No MD Notified: Yes Date Notified: 07/16/22 Time Notified: 21:44 Method of Notification: ED Physician Initiated Reason For Visit: NSTEMI Diagnosis Discharge Diagnosis (1) Non-ST elevation [place] (NSTEMI): Status: Acute Code(s): I21.4 - Non-ST elevation (NSTEMI) myocardial infarction (2) Elevated blood pressure reading: Status: Acute Code(s): R03.0 - Elevated blood-pressure reading, without diagnosis of hypertension Plan This 66-year-old gentleman was admitted with left armpit/shoulder pain with radiation to bilateral periscapular area along with worsening shortness of exertion for 1 year. 1. Non-STEMI due to mid LAD lesion: Patient with elevated PSA. Initial high sensitive troponin was 253. Serial troponin shows 998 and 2011. Twelve-lead EKG individually reviewed and does not show significant changes. First EKG sinus bradycardia LAD and the second sinus bradycardia 55 beats minute with no significant ST-T dynamic changes. Chest pain Varisource bibasilar crepitations with poor inspiration. D-dimer was elevated but age-adjusted was normal. CTPA showed no pulmonary embolism or dissection. Patient on aspirin, heparin drip. Morphine as needed. On pravastatin, allergic to atorvastatin. Serum magnesium and phosphorus level normal. K3.51. 40 M EQ K. Dur, 1 dose of replacement 07/18: Cardiac cath showed ruptured plaque in mid LAD about 70% which required PCI and stenting. RCA large dominant with low-flow but no obstructive atherosclerosis. Left circumflex large vessel normal angiographically. Patient on baby aspirin and Brilinta added. Heart rate low in low 40s to 50s but patient asymptomatic therefore not on beta-gertrudis. Low-dose lisinopril 2.5 mg added. Patient has myalgia with atorvastatin and therefore on pravastatin 80 mg daily. Discussed with the shipping coordinator. Cardiac cath findings discussed with the patient and patient's . Cardiac rehab after discharge. 07/19: Patient sinus rhythm. No acute events overnight. Patient is comfortable and walking. Prescriptions given for aspirin, Brilinta, lisinopril, rosuvastatin. Consider low-dose metoprolol succinate 12.5 mg daily with holding parameter. Office cardiology follow-up and cardiac rehab to be set up. Undiagnosed essential, new onset hypertension Patient noted to have elevated blood pressure. Started on lisinopril. Beta-gertrudis has deferred at this time as patient had sinus bradycardia and beta-gertrudis can be added in due to cause. 07/19: Need further monitored as an outpatient Dyspnea on exertion: 2D echo shows EF 55% with mild TR. PASP 30 mmHg. DVT prophylaxis: Was given heparin during Programming Coordinator. Discharge medication reconciliation done. Discharge follow-up instructions completed. Discharge process discussed with the patient and all questions were answered to patient's satisfaction. Discharged home Total time spent, exact 35 minutes on discharge meds reconciliation, examination, coordination of care with nurses and ancillary staff, review of imaging and blood test and discussion with the patient on follow-up instructions. Medications at Discharge Home Medications esomeprazole magnesium 40 mg capsule,delayed release 40 mg PO DAILY Check with primary doctor 07/16/17 naproxen 500 mg tablet 500 mg PO BID PRN Pain 08/16/19 ferrous sulfate 325 mg (65 mg iron) tablet 325 mg PO DAILY Check with primary doctor 07/16/22 multivitamin 1 tab PO DAILY Check with primary doctor 07/16/22 tamsulosin 0.4 mg capsule 0.4 mg PO DAILY Check with primary doctor 07/16/22 testosterone cypionate 200 mg/mL intramuscular oil 200 mg IM QMONTH Check with primary doctor 07/16/22 aspirin 81 mg tablet,delayed release 81 mg PO BREAKFAST #30 tabs 07/19/22 lisinopril 5 mg tablet 5 mg PO DAILY #30 tabs 07/19/22 metoprolol succinate 25 mg tablet,extended release 24 hr (Toprol XL) 12.5 mg PO DAILY 60 days #30 tabs 07/19/22 nitroglycerin 0.4 mg sublingual tablet 0.4 mg sublingual Q5M PRN Cardiac/Chest Pain #30 tabs 07/19/22 rosuvastatin 20 mg tablet 20 mg PO QHS #30 tabs 07/19/22 ticagrelor 90 mg tablet (Brilinta) 90 mg PO BID #60 tabs 07/19/22 Physical Exam Narrative Physical exam No acute event overnight. Physical exam General: Alert, Oriented x3, Cooperative HEENT: Atraumatic, PERRLA, EOMI, Normocephalic Oral: No Gingival or Mucosal Lesions/ Ulcerations Neck: Supple, No JVD, Negative Carotid Bruits Lungs: Air entry equal in bilateral lung bases. No crepitation/rhonchi Cardiovascular: Regular rate, Regular Rhythm, Normal S1, Normal S2, No murmurs Abdomen: Bowel Sounds Present, Soft, Non Tender, Non-Distended : No renal angle tenderness. No suprapubic tenderness. Extremities: No edema, Capillary Refill Less than 3 Seconds Skin: Mild itching and rash on left greer, chronic. Seems eczema/dermatitis Musculoskeletal: No Tenderness to Palpation of Joints or Extremities Neurological: Cranial nerves II-XII grossly intact, DTR 2+/4 and Symmetrical, Neuro grossly intact Psych/Mental Status: Normal Affect, Appropriate. Weight / BMI Weight Weight: 211 lb 6.773 oz Body Mass Index (BMI) 30.0 ABG / Lab / Microbiology Data Result Diagrams: 07/19/22 04:40 07/19/22 04:40 Laboratory: Laboratory Results - last 24 hr 07/19/22 04:40: WBC 9.2, RBC 5.02, Hgb 15.4, Hct 46.1, MCV 91.8, MCH 30.7, MCHC 33.4, RDW Std Deviation 42.1, RDW Coeff of Tere 12.5, Plt Count 186, MPV 11.0, Immature Gran % (Auto) 0.300, Neut % (Auto) 77.7 H, Lymph % (Auto) 11.1 L, [place] % (Auto) 10.0, Eos % (Auto) 0.6, Baso % (Auto) 0.3, Absolute Neuts (auto) 7.2, Absolute Lymphs (auto) 1.03, Nucleated RBC % 0 07/19/22 04:40: Sodium 140, Potassium 3.9, Chloride 108 H, Carbon Dioxide 27.0, Anion Gap 5, BUN 19 H, Creatinine 0.93, Estim Creat Clear Calc 80.68, Est GFR (MDRD) Af Amer 105, Est GFR (MDRD) Non-Af 87, BUN/Creatinine Ratio 20.5 H, Glucose 107 H, Calcium 8.8, Total Bilirubin 0.60, AST 41 H, ALT 31, Alkaline Phosphatase 60, Total Protein 6.4, Albumin 3.1 L, Globulin 3.3, Albumin/Globulin Ratio 0.9 Radiography Diagnostic Testing: Radiology Impression Echocardiogram 07/16/22 22:56 Interpretation Summary Normal LV size. Left ventricular systolic function is normal. The estimated ejection fraction is 55 %. Mild (1+) tricuspid valve insufficiency. Pulmonary artery systolic pressure is 30 mmHg. Ordering Physician: Ruy Null Referring Physician: CARL WARE Performed By: Azeb Navas RDCS D/C Instructions Discharge Diet: Low fat / Low cholesterol and 2000 mg Sodium Diet Weight Bearing Status: Weight bearing as tolerated (No heavy lifting/grocery bag from right hand at least for 1 week) and - Call your doctor if you observe: Fever of 101 or Higher, Coldness, Increased Pain, Numbness or Tingling, Change in Color, Inability to urinate, Inability to have a bowel movement, Shortness of breath, Dizziness, Fainting spells, Swelling in the ankles, Chest pain, Prolonged hiccupping, Increased palpitations (irregular heartbeat), Calf discomfort and Uncontrolled pain Meaningful Use Info Meaningful Use Diagnoses (Choose all that apply): AMI AMI/Post PCI/Angioplasty Aspirin given w/in 24hrs of arrival?: Yes ASA at discharge?: Yes Antiplatelet Therapy at Discharge:: Yes Statins at discharge?: Yes [place]/ARB at discharge?: Yes Beta Gertrudis at discharge?: Yes Done w/ Acute [place] measure.: Yes Documented LVEF (%): 55 Discharge Plan Admission Admit Date/Time: 07/16/22 21:40 Primary Reason for Your Visit: Non-STEMI Attending Provider: Brown Lorenz Primary Care Provider: Carl Ware Consulting Providers: Fernando Shelton ; Ruy Null Instructions Additional Instructions / Restrictions: Patient to follow-up in cardiac rehab Discharge Orders/Prescriptions Prescriptions: New aspirin 81 mg Tablet,Delayed Release (Dr/Ec) 81 mg PO BREAKFAST Qty: 30 3RF nitroglycerin 0.4 mg Tablet, Sublingual 0.4 mg sublingual Q5M PRN (Reason: Cardiac/Chest Pain) Qty: 30 0RF lisinopril 5 mg Tablet 5 mg PO DAILY Qty: 30 2RF Brilinta 90 mg Tablet 90 mg PO BID Qty: 60 2RF rosuvastatin 20 mg tablet 20 mg PO QHS Qty: 30 2RF metoprolol succinate [Toprol XL] 25 mg tablet extended release 24 hr 12.5 mg PO DAILY 60 Days Qty: 30 2RF Rx Instructions: Hold for heart less than 60 or systolic blood pressure less than 100 mmHg. Continued esomeprazole magnesium 40 MG capsule,delayed release(DR/EC) 40 mg PO DAILY multivitamin Tablet 1 tab PO DAILY tamsulosin 0.4 mg capsule 0.4 mg PO DAILY ferrous sulfate 325 mg (65 mg iron) Tablet 325 mg PO DAILY testosterone cypionate 200 mg/mL oil 200 mg IM QMONTH Held naproxen 500 mg tablet 500 mg PO BID PRN (Reason: Pain) Hold Instructions: Hold for 1 week. Discontinued pravastatin 80 mg Tablet 80 mg PO DAILY Referrals / Follow Up: Carl aWre MD [Primary Care Provider] - Within 2 Weeks Ethan Bower MD [Med Staff - Active Staff] - Within 1 Month Disposition Disposition (needs filled in before D/C Order can be placed): Home, Self Care Charges/Coding Visit Charges Inpatient E&M: 39701 Disch Hosp
--- NOTE | 2022-07-19 09:26 | PN.CARD_ITS ---
Subjective Subjective Patient seen and eval today at bedside Along with the nursing staff No event from last night Symptoms of left shoulder pain resolved. Objective Data Vital Signs: Vital Signs Temp Pulse Resp BP Pulse Ox O2 Del Method 98 F 59 L 16 132/94 H 97 Room Air 07/19/22 05:29 07/19/22 08:00 07/19/22 05:29 07/19/22 08:00 07/19/22 05:29 07/19/22 05:29 Oxygen Delivery Method Room Air Weight: 211 lb 6.773 oz Body Mass Index (BMI) 30.0 Intake & Output: Intake and Output for Last 24 Hours 07/17/22 07/18/22 07/19/22 23:59 23:59 23:59 Intake Total 1046.53 / 1046.53 1608.5 / 1608.5 587.5 / 587.5 Output Total 1690 / 1690 Balance 1046.53 / 1046.53 -81.5 / -81.5 587.5 / 587.5 Lab / Micro Data Result Diagrams: 07/19/22 04:40 07/19/22 04:40 Labs: Laboratory Results - last 24 hr 07/19/22 04:40: WBC 9.2, RBC 5.02, Hgb 15.4, Hct 46.1, MCV 91.8, MCH 30.7, MCHC 33.4, RDW Std Deviation 42.1, RDW Coeff of Tere 12.5, Plt Count 186, MPV 11.0, Immature Gran % (Auto) 0.300, Neut % (Auto) 77.7 H, Lymph % (Auto) 11.1 L, [place] % (Auto) 10.0, Eos % (Auto) 0.6, Baso % (Auto) 0.3, Absolute Neuts (auto) 7.2, Absolute Lymphs (auto) 1.03, Nucleated RBC % 0 07/19/22 04:40: Sodium 140, Potassium 3.9, Chloride 108 H, Carbon Dioxide 27.0, Anion Gap 5, BUN 19 H, Creatinine 0.93, Estim Creat Clear Calc 80.68, Est GFR (MDRD) Af Amer 105, Est GFR (MDRD) Non-Af 87, BUN/Creatinine Ratio 20.5 H, Glucose 107 H, Calcium 8.8, Total Bilirubin 0.60, AST 41 H, ALT 31, Alkaline Phosphatase 60, Total Protein 6.4, Albumin 3.1 L, Globulin 3.3, Albumin/Globulin Ratio 0.9 Cardiology Labs/Tests 07/19/22 04:40: WBC 9.2, RBC 5.02, Hgb 15.4, Hct 46.1, MCV 91.8, MCH 30.7, MCHC 33.4, Plt Count 186, MPV 11.0, Immature Gran % (Auto) 0.300, Neut % (Auto) 77.7 H, Lymph % (Auto) 11.1 L, [place] % (Auto) 10.0, Eos % (Auto) 0.6, Baso % (Auto) 0.3, Absolute Neuts (auto) 7.2, Nucleated RBC % 0 07/19/22 04:40: Sodium 140, Potassium 3.9, Chloride 108 H, Carbon Dioxide 27.0, Anion Gap 5, BUN 19 H, Creatinine 0.93, Est GFR (MDRD) Af Amer 105, Est GFR (MDRD) Non-Af 87, BUN/Creatinine Ratio 20.5 H, Glucose 107 H, Calcium 8.8, Total Bilirubin 0.60 Rhythm: EKG: ECHO: Stress Test: Cardiac Cath: PCI: CT Surgery: Holter monitor: EPS: PPM: CXR: Chest CT Scan: Radiography Diagnostic Testing: Radiology Impression Echocardiogram 07/16/22 22:56 Interpretation Summary Normal LV size. Left ventricular systolic function is normal. The estimated ejection fraction is 55 %. Mild (1+) tricuspid valve insufficiency. Pulmonary artery systolic pressure is 30 mmHg. Ordering Physician: Ruy Null Referring Physician: MALINDA WARE Performed By: Azeb Navas RDCS Physical Exam Cardio Cardio Narrative: Alert orientated x3 Not in acute distress Cardiac rhythm is normal sinus Cardiac exam S1-S2 is regular There is no systolic or diastolic murmur Chest exam is clear to auscultation bilateral. Assessment & Plan Assessment/Plan (1) Atherosclerotic heart disease of [place] coronary artery without angina pectoris: (2) Hyperlipidemia: (3) Non-ST elevation [place] (NSTEMI): (4) Stented coronary artery: PLAN: Plan 66-year-old patient with history of hyperlipidemia, hypertension Presented with symptoms of chest pain With a clinical diagnosis of non-ST elevation [place] Underwent cardiac catheterization and echo evaluation as well as series of cardiac biomarker which showed significant elevation of high sensitive troponin Patient treated with medical therapy with heparin aspirin statin And underwent cardiac catheterization which showed culprit is mid LAD underwent successful PCI using drug-eluting stent/resolute José Cardiac care plan recommendations; 1. Patient to continue on dual antiplatelet therapy with Brilinta 90 mg twice daily in addition to low-dose aspirin 81 mg For 1 year and aspirin indefinitely if no contraindication. 2. statin Crestor 20 mg at bedtime 3. Low-dose beta-oscar as well as LYDIA inhibitor with lisinopril, post AL and monitor of blood pressure Patient will be scheduled for cardiac rehab program, phase 1 Patient to follow-up with the cardiology team at [facility]/Dr. Bower
[2022-07-19 09:36] VITALS: PULSE 84
[2022-07-19] MEDS: Metoprolol(XL)Succ 25 MG Tablet 12.5 MG PO (09:36)
[2022-07-19 10:00] VITALS: BP 134/90; PULSE 85; RESP 16; TEMP 36.7; O2SAT 96
--- NOTE | 2022-07-19 10:00 | EKG12_ITS ---
Test Reason : AM EKG Blood Pressure : / mmHG Vent. Rate : 075 BPM Atrial Rate : 075 BPM P-R Int : 158 ms QRS Dur : 094 ms QT Int : 402 ms P-R-T Axes : 049 -29 035 degrees QTc Int : 448 ms Sinus rhythm with occasional Premature ventricular complexes Nonspecific T wave abnormality Abnormal ECG Confirmed by DMITRIY TRUONG, ALONDRA ([id number]), technical editor DIANA YOUNGER ([id number]) on 07/20/2022 10:53:05 AM Referred By: LINA Confirmed By:ALONDRA IZAGUIRRE MD
--- NOTE | 2022-07-19 10:25 | CASEMGMT ---
Complex Gallery Or Museum Technician to pt's room to complete RN CM assessment. Unable to complete assessment d/t pt not being in room. Brilinta card left on bed. To attempt assessment at a later time.
== END 2022-07-19 10:15 | disposition home or self-care (01) | DRG 247 ==
LOC: ED 21:51 → PCU 22:23 → ICU 07-18 12:09
PROVIDERS: Internal Medicine Interventional Cardiology; Admitting Provider Hospitalist; Emergency Provider Emergency Medicine; PCP Family Medicine; Visit Provider Internal Medicine
DX: I21.4 Non-ST elevation (NSTEMI) myocardial infarction (principal); E78.5 Hyperlipidemia, unspecified; I25.10 Atherosclerotic heart disease of native coronary artery without angina pectoris; K21.9 Gastro-esophageal reflux disease without esophagitis; R03.0 Elevated blood-pressure reading, without diagnosis of hypertension; F41.1 Generalized anxiety disorder; Z79.82 Long term (current) use of aspirin; Z79.02 Long term (current) use of antithrombotics/antiplatelets
CPT/HCPCS: 36415; 71045; 71275; 80048; 80053; 80061; 83735; 84100; 84484; 85025; 85379; 85610; 85730; 92928; 93005; 93306; 93454; 99152; 99153; 99285; 99406; J7030; Q9967; A4216; C1725; C1769; C1874; C1887; C1894; C9600

== ENCOUNTER → 2022-08-08 | Outpatient (CLI) | payer MEDICARE, SELFPAY ==
--- NOTE | 2022-08-08 10:35 | RAD_ITS ---
INDICATION: cough EXAMINATION/TECHNIQUE: X-RAY - XR Chest 2 Views COMPARISON: 07/16/2022. FINDINGS: The lungs are clear. The cardiomediastinal silhouette is unremarkable. No pleural effusion or pneumothorax. Degenerative changes of the thoracic spine. RAD/Chest PA and Lateral IMPRESSION: No acute radiographic abnormalities. Electronically Signed: Yousif Bhandari MD at 17:30 EST ,
--- NOTE | 2022-08-08 12:50 | CR.HP_ITS ---
CR - History & Physical - General Arrival date:: 08/08/22 Arrival time:: 12:50 Date of Referral:: 07/18/22 Date of CR Evaluation:: 08/08/22 Referring Physician: Dr. Ethan Bower Primary Diagnosis: PCI with stent - History of Present Cardiac Event Onset Date: Enter Onset Date of cardiac illnesses in Comment field below PTCA or coronary stenting:: Yes - mid LAD 07/18/22 - Sleep Disorder Evaluation Hx of Sleep Apnea: No Do you snore loudly (louder than talking or can be heard through closed doors)?: Yes Do you often feel tired/ fatigued/ sleepy during daytime?: Yes Has anyone observed you stop breathing during sleep?: Yes History of Hypertension (for STOP score): Yes STOP Results: Positive - Medications Home Medications: Ambulatory Orders Medication Instructions Recorded esomeprazole magnesium 40 mg 40 mg PO DAILY Check with primary 07/16/17 capsule,delayed release doctor ferrous sulfate 325 mg (65 mg 325 mg PO DAILY Check with primary 07/16/22 iron) tablet doctor multivitamin 1 tab PO DAILY Check with primary 07/16/22 doctor tamsulosin 0.4 mg capsule 0.4 mg PO DAILY Check with primary 07/16/22 doctor testosterone cypionate 200 mg/mL 200 mg IM QMONTH Check with 07/16/22 intramuscular oil primary doctor aspirin 81 mg tablet,delayed 81 mg PO BREAKFAST #30 tabs 07/19/22 release nitroglycerin 0.4 mg sublingual 0.4 mg sublingual Q5M PRN 07/19/22 tablet Cardiac/Chest Pain #30 tabs ticagrelor 90 mg tablet (Brilinta) 90 mg PO BID #60 tabs 07/19/22 cholecalciferol (vitamin D3) 25 25 mcg PO DAILY 08/08/22 mcg (1,000 unit) capsule clopidogrel 75 mg tablet (Plavix) 75 mg PO DAILY #94 tabs 08/08/22 famotidine 20 mg tablet 20 mg PO DAILY 08/08/22 losartan 25 mg tablet 25 mg PO DAILY #30 tabs 08/08/22 metoprolol succinate 25 mg 12.5 mg PO DAILY #90 tabs 08/08/22 tablet,extended release 24 hr (Toprol XL) prednisone 10 mg tablet 10 mg PO .COMPLEX #30 tabs 08/08/22 rosuvastatin 20 mg tablet 20 mg PO QHS #90 tabs 08/08/22 - Allergies Allergies/Adverse Reactions: Allergies erythromycin base Allergy (Intermediate, Verified 08/08/22 09:24) Nausea/Vom/Diarrhea niacin [From Niaspan Extended-Release] Allergy (Intermediate, Verified 08/08/22 09:24) Hives Penicillins Allergy (Verified 08/08/22 09:24) Unknown atorvastatin Adverse Reaction (Intermediate, Verified 08/08/22 09:24) myalgias cerivastatin [From Baycol] Adverse Reaction (Intermediate, Verified 08/08/22 09:24) leg cramps Advanced Directives - Advanced Directives Power of Framing Mechanic: No Living Will: No Advance Directives Information Provided: No Advance Directives on File: No DNR Order?:: No Past Medical History - Covid-19 Screening 65 years or older:: Yes Has a serious heart condition:: Yes - Past Medical Illness Medical History: Past Medical History (Last Updated 08/08/22 @ 09:34 by Cinthya Tolliver PA, PA) Chest pain R07.9 Enthesopathy of hip region M76.899 Generalized anxiety disorder F41.1 GERD (gastroesophageal reflux disease) K21.9 Hemorrhoids K64.9 History of vitamin D deficiency Z86.39 Hyperlipidemia E78.5 Non-ST elevation [place] (NSTEMI) I21.4 - Past Surgical History Surgical History: Past Surgical History (Last Updated 07/18/22 @ 19:01 by Nayla Dunn) H/O arthroscopy of knee Z98.890 bilaterally History of foot surgery Onset Date: ~07/2019 Z98.890 Repair of tendon and removal of hardware. History of hemorrhoidectomy Z98.890 History of open reduction and internal fixation (ORIF) procedure Z98.890 left foot History of surgery on upper extremity Z98.890 left wrist and elbow History of tonsillectomy Z90.89 History of umbilical hernia repair Z98.890, Z87.19 History of varicose vein stripping Z98.890 S/P excision of neuroma Z98.890, Z86.018 bilateral feet Stented coronary artery Onset Date: 07/18/22 Z95.5 JERRELL to LAD - Family History Summary Family History: Family History (Last Reviewed 07/16/22 @ 21:[address] Ruy Null MD) Father Alzheimer's disease Mother CAD (coronary artery disease) Diabetes Heart disease open heart surgery History of motor vehicle accident Social History - Smoking History Smoking Status: Never smoker - Alcohol Use Alcohol Usage: Yes - few times a month - Substance Abuse Hx Substance Use: No - Occupation Occupation (List type of work in comments):: Retired - Hobbies, Recreation, Social Activities Hobbies: Exercise Recreational Activities: I am able to engage in a few activities Social Environment - Status Marital Status: - Current Living Arrangements Living Environment:: Family - Children Do any of your children live nearby?: Yes - Safety Do you feel safe in your surroundings?: Yes - Assistance Do you need any assistance at home?: no Review of Systems - Review of Systems Hints: Right click = Denies ([place]). Left click = Reports ([place]) Review of Present Symptoms: Reports: Shortness of Breath at Rest, Shortness of Breath with Exertion, Angina, Appetite - Normal, Appetite - Special Diet, Sleep - Normal. Denies: PVD, Operative Discomfort, Wound Healing, Dizziness/Lightheadedness, Fatigue, Heart Arrhythmia/Irregularities, Sexual Changes - Pain Is Patient Pain Free?: No Pain Location: none, other - hands, l knee, back, feet Pain Level: 08/09 Risk Factor Assessment - Vital Signs Pulse Ox: 97 - Pulse Pulse Rate: 67 Pulse Rhythm: Regular - Hypertension Blood Pressure Sitting - Left Arm: 126/84 - Stress Stress: Home/Family - Diabetes Nutrition Referral for Diabetes: No - Obesity Height: 5 ft 10 in Weight:: 95.98 kg Weight in Pounds: 211.6 lbs Body Mass Index (BMI): 30.3 Nutritional Referral for Obesity: No - Physical Inactivity Physical Inactivity: None - Risk Stratification Risk Guidelines: Moderate Risk: Risk Factor for Smoking, Risk Factor for Dyslipidemia, Risk Factor for Diabetes, Risk Factor for Obesity, Risk Factor for Hypertension, Risk Factor for Sedentary Lifestyle, Risk Factor for Depression - Family History Family History: Family History (Last Reviewed 07/16/22 @ 21:[address] Ruy Null MD) Father Alzheimer's disease Mother CAD (coronary artery disease) Diabetes Heart disease History of motor vehicle accident Motivation - Motivation to Participate On a scale of 1 to 10, how prepared are you to commit to attending program?: 10 What do you see as barriers to successfully being able to complete the program?: nothing What do you see as the benefits of succesfully completing the program? In other words, what do you hope to get out of participating in the program?: more energy, better health Are there issues you are dealing with that will interfere with completing the program?: no Do you have a spouse or signficant other, family or friends who will help support you to complete the program?: yes
[2022-08-08 14:14] VITALS: BP 126/84; PULSE 67; O2SAT 97; BMI 30.3
--- NOTE | 2022-08-08 14:15 | PCM.CR.ITP ---
Diagnosis - General Information Admitting Diagnosis: PCI with stent Personal Learning Style:: Audio/Visual Stage of change r/t lifestyle modifications:: Contemplation Gave educational material for:: Treating Heart Disease, Emotions & Heart Disease, Stress Management & Relaxation, Sleep Disorders & Heart Disease, How The Heart Works, What it means to have Heart Disease, How Coronary Artery Disease is Diagnosed, Heart Procedures, What Heart Medications Do, Risk Factors & Modifications, Living an Active Life, Nutrition - Education/Goals Cardiac Rehabilitation Goals: 1. Maintain the individual as the primary focus of care. 2. To improve the patient's quality of life. 3. Identification of cardiac risk factors and provide cardiac risk factor management. 4. Enhance the psychosocial status of the patient. 5. Reconditioning enough to allow the patient to resume customary activities. 6. Control symptoms of cardiac disease Personal Goals: Initial Assessment: Improve management of stress and emotions, Improve energy level, Participate in home exercise program, Get back to work, or to resume activities faster, Improve knowledge of cardiac disease, Improve muscle strength and endurance, Improve diet and eating habits (eat healthier), Control risk factors (learn risk factor modification), Other goal: Scale for measuring improvement of personal goals: Enter appropriate number in Comments. 2 = Unchanged. 3 = Slightly Better. 4 = Moderate Improvement. 5 = Met my Goal - Diagnosis & Disease Process Outcomes/Goals: Pt IDs own risk factors & lifestyle modifications by Session 10, Verbalizes symptoms of angina & response by session 3., Pt independently manages, Other Additional Outcomes/Goals: Plan/Interventions: Assist Pt to ID & engage in lifestyle modification to reduce CVD risk, Instruct on individual risk factors, Review symptoms of angina & emergency actions, Review secondary diagnosis & identify educational needs., Other see comment 30 day Reassessments:: Not Met 30 day Reassessments:: Not Met 30 day Reassessments:: Not Met 30 day Reassessments:: Not Met Final Reassessments:: Not Met - Safety Referral to Physical Therapy: No Referral to [facility] Case Management: No Fall Risk Assessed:: Yes Assistive Devices:: None Exercise - Initial Assessment - Visit Date of Eval: 08/08/22 - initial eval Mets: Pre-: >3 METS for 30 minutes by discharge, >5 METS for 30 minutes by discharge, >7 METS for 30 minutes by discharge, Unable to meet goal due to: (see comment below) - Physician Prescribed Exercise Modalities: Treadmill, Rower, Airdyne, NuStep, SciFit, Lateral Switchboard Receptionist Frequency: 3x/week for 12 weeks [36 sessions] Intensity: 60-80% of age predicted maximum heart rate reserve Current METSs:: 3 Target Heart Rate:: 100-115 Resting Blood Pressure: 126/84 EKG Type: SR with PVC's - Outcomes & Goals Goals:: Verbalizes understanding of THR, RPE & goal METS by session 6, Documents in home exercise log/reports 30 min aerobic 5 day/wk by DC, Demonstrates accurate pulse taking by DC, Other additional outcome/goals: see below - Intervention & Plan Exercise Program Goals: Instruct on personal THR & RPE, Instruct on MET level & personal MET goal, Show patient to take own pulse /validate performance until accurate, Instruct on home exercise, Other additional plan/int - Physical Activity Home Exercise Physical Activity - Home Exercise: Safe Exercise, Warm-up, Self-monitoring, Cool-Down, Home Exercise > 30 min Daily, Sitting Time <3 hours/daily - Outcomes & Goals Outcomes/Goals: Demonstrates correct Warm-up/exercise Cool-Down (S3) if = 2.5 METs, Verbalizes symptoms of exercise intolerance by Session 3 (S3), Demonstrate safe equipment use (S3) & follows exercise prescrition (6), Other: See below - Intervention & Plan Plan/Intervention: Instruct warm-up & cool-down if exercising at > 2 METs, Instruct on symptoms of exercise intolerance & actions to take, Instruct & monitor on saf, Assess intial functional capacity & safety risk, Other See below Nutrition - Initial Assessment - Program Goals Nutrition Program Goals: LDL <100 optimal. 100 - 129 Near optimal. 130 - 159 Borderline High. 160 - 189 High. Total Cholesterol <200 desirable. 200 - 239 Borderline High. >/= 240 High. HDL < 40 Low >/=60 High. Triglycerides <150 desirable. <199 optimal. VlDL 5 - 40. HgbA1C <7%. BMI <25 Patient has diagnosis of Hyperlipidemia (ICD E78)?: Yes - Visit Date of Assessment:: 08/08/22 - initial eval - Cholesterol/Lipids (Other Core Measures) Determine presence & major risk factors that modify LDL goal: Hypertension or hypertensive medication, Low HDL cholesterol <40 mg/dL*, Family history of premature CHD in Male < 55 years: female <65 yearsFa, Age men > 45 years; women >/= 55 years Outcomes/Goals: Pt IDs own risk factors & lifestyle modifications by Session 10, Verbalizes symptoms of angina & response by session 3., Pt independently manages, Other Additional Outcomes/Goals: Intervention/Plan: Advocate for lipid panel cholesterol medication if applicable, Instruct on personal lipid levels & lipid goals/NCEP guidelines, Instruct on cholesterol, Other additional plan/int Referral to dietitian:: No - Diabetes (Other Core Measures) Diabetes Type: Not Applicable - Weight Mgt (Other Care) Height: 5 ft 10 in Weight:: 95.98 kg BMI: 30.3 Diagnosis Overweight/Obesity BMI> 30% ICD-10 E66: Yes Diagnosis High BMI/Morbid Obesity BMI> 35% ICD-10 Z68: No Outcomes/Goals: Pt sets, maintains & shows weight loss goal & trend during rehab, Other additional outcomes/goals Intervention/Plan: Instruct on ideal BMI & set weight loss goal w/patient, Assist pt to ID & incorporate diet changes for weight loss by S9, Refer to Structured Weight Loss program as appropriate, Encourage goal of using 250-300dcal per session for weight loss, Other additional plan/interventions - Healthy Eating Habits Will attend diet classes:: Yes Outcomes/Goals:: Consume diet rich in vegs,fruits,whole grain/high fiber,fish,lean meat, Limit sat/trans fats,cholesterol & added salts & sugars, Other additional outcome/goals: Intervention/Plan:: Assess current eating habits, Other Additional plan/interventions - Education Gave educational materials for:: Signs & symptoms of hypoglycemia, Signs & symptoms of hyperglycemia, Relate diabetes to coronary artery disease, Healthy eating Nutrition - 30-Day Assessment Nutrition - 60-Day Assessment Nutrition - 90-Day Assessment Nutrition - Final Assessment Core - Initial Assessment - Visit Date of Eval: 08/08/22 - initial eval - Medication Compliance Preventative Medication(s):: Aspirin, LYDIA inhibitor, Statin/lipid, Beta oscar H/O mental health issues: depression, anxiety, or addiction?: No Doesn?t believe in the benefits of treatment?: No Believes medications are unnecessary or harmful?: No Has a concern about medication side effects?: No Expresses concern over the cost of medications?: No Outcomes/Goals: Verbalizes medications,desired effect & common side effects @ DC, Pt self-reports following medication regimen, Keeps card in wallet w/medications listed by DC, Other additional outcome/goals: Interventions/plans: Instruct on medication effects & side effects, Review medication list w/patient every two weeks, Instruct importance of taking meds as ordered & assist problem solving, Other additional - Tobacco Use Tobacco Use: Non-smoker Do you use smokeless tobacco?: No - Hypertension Hypertension Diagnosis:: Hypertension ICD-10 I10 Resting Blood Pressure:: 126/84 [place] [employer] Hypertension Guidelines: [place] [employer] Hypertension Guidelines. Normal BP Less than 120/80. Elevated BP 120/80. Hypertension Stage 1: BP 130-139/80-89. Hypertesnion Stage 2: BP 140 or higher/90 or higher. Hypertension Crisis: BP higher than 180/120 Outcomes/Goals: Able to verbalize/achieve optimal blood pressure <130/80, Incorporates diet changes & exercise for blood pressure control by DC, Other additional outcomes/goals Interventions/plan: Instruct on optimal blood pressure, hypertension & medications, Instruct on effects of sodium, alcohol, stress, exercise &hypertension, Other additional plan/interventions - Tobacco Cessation Referral Smoking Cessation Referral:: No Individual Education/Counseling:: No Education Schedule Given:: Yes Core - 30-Day Assessment Core - 60-Day Assessment Core - 90 Day Assessment Core - Final Assessment Psychosocial - Initial Assess - VIsit Date of Eval: 08/08/22 - initial eval History of previous Mental disease:: No - Outcomes/Goals: See list Psychosocial Outcomes/Goals:: ID's personal stressors & 2 strategies to manage stress by discharge, Other Additional outcome/goals: - Intervention/Plan: See List Interventions/Plan:: Assess stressors,coping strategies & signs of derpression on admission, Instruct/assist pt to develop coping & personal stress Mgt strategies, Refer to Behavioral Health if appropriate, Refer to Physician if appropriate, Instruct patient to recognize signs & symptoms of depression, Instruct patient to recog, Other additional plan/intervention Psychosocial - 30-Day Assess Psychosocial - 60-Day Assess Psychosocial - 90-Day Assess Psychosocial - Final Assessmen Patient Health Questionnaire Initial Assessment 1. Little interest or pleasure in doing things: Several days 3. Trouble falling or staying asleep, or sleeping too much: Several days 4. Feeling tired or having little energy: Nearly every day 6. Feeling bad about yourself -- or that you are a failure or have let yourself or your family down: Several days How difficult have these problems made it for you to do your work, take care of things at home, or get along with other people?: Somewhat difficult Total Score: 6 BRYAN-Q SV Test - Statements CAD is a disease of the arteries in the heart: I Don't Know Examples of risk factors for heart disease: True Angina is chest pain or discomfort: True The benefits of resistance training include: True Eating more meat and dairy products: False Anti-platelet medications such as aspirin are important: True The only effective way to manage stress: False An exercise warm-up slowly increases heart rate: True Prepared, processed foods usually have high sodium: True Depression is common after a heart attack: True The statin medications lower cholesterol: True To control blood pressure, lower the amount of sodium: False If someone gets chest discomfort during walking: I Don't Know Transfats are partially hydrogenated vegetable oils: False Sleep apnea that is not treated increases the risk: False To control cholesterol, one should become a vegetarian: False Someone knows if he/she is exercising at the right level: True Diabetes cannot be prevented with exercise & health eating: False Stress is a large risk for heart attack: True A diet that can help lower blood pressure is rich in: True - Total Score Total Correct Responses: 16 Self-Efficacy Initial Assessment We would like to know how confident you are in doing certain activities. Please select your confidence level for:: Select your confidence level for the following using the scale 1-10 where 1 is not at all confident and 10 is totally confident. Your score is the average of all 6 responses. Fatigue: How confident are you that you can keep the fatigue caused by your disease from interfering with the things you want to do? Select Number: 7 Physical Discomfort or Pain: How confident are you that you can keep the physical discomfort or pain of your disease from interfering with the things you want to do? Select Number: 7 Emotional Distress: How confident are you that you can keep the emotional distress caused by your disease from interfering with the things you want to do? Select Number: 7 Other Symptoms or Health Problems: How confident are you that you can keep other symptoms or health problems from interfering with the things you want to do? Select Number: 7 Different Tasks and Activities: How confident are you that you can do the different tasks and activities needed to manage your health condition so as to reduce your need to see a doctor? Medication: How confident are you that you can do things other than just taking medication to reduce how much your illness affects your everyday life? Select Number: 7 Nutrition Survey - Nutrition Survey Initial Have you lost >10 lbs over the past 2 months without trying?: No Are you following a special diet at home for diabetes, low fat, or low salt?: No Are you interested in meeting with a dietitian for help understanding your diet?: Yes Do you eat less than 3 meals a day?: Yes Do you eat fatty meats (patterson, sausage, ribs, etc), fried foods, desserts, large amounts of salad dressings, margarine, butter, or cheese most days?: Yes Do you have food allergies? [Enter types in comment field]: No Do you eat in restaurants more than 3 times a week?: Yes Do you season food with salt, seasoning salt, or garlic salt?: Yes Do you used canned, boxed, frozen meals, or soups, seasoning packets?: Yes Total Score:: 6
[2022-08-08 14:30] VITALS: BP 126/84; BMI 30.3
== END | disposition home or self-care (01) ==
PROVIDERS: PCP Family Medicine; Visit Provider Internal Medicine Cardiovascular Disease
DX: R05.9 Cough, unspecified (principal); I21.4 Non-ST elevation (NSTEMI) myocardial infarction; I25.10 Atherosclerotic heart disease of native coronary artery without angina pectoris; Z95.5 Presence of coronary angioplasty implant and graft
CPT/HCPCS: 71046

== ENCOUNTER 2022-08-29 08:00 | Outpatient (RCR) | payer MEDICARE, SELFPAY ==
[2022-08-08 14:30] VITALS: BMI 30.3
== END 2022-08-30 23:59 ==
LOC: CR 08:00
PROVIDERS: PCP Family Medicine; Visit Provider Internal Medicine Cardiovascular Disease
DX: I25.10 Atherosclerotic heart disease of native coronary artery without angina pectoris (principal); I25.2 Old myocardial infarction; Z95.5 Presence of coronary angioplasty implant and graft
CPT/HCPCS: 93798

== ENCOUNTER → 2022-08-30 | Outpatient (CLI) | payer MEDICARE, SELFPAY ==
[2022-08-08 14:30] VITALS: BMI 30.3
== END | disposition home or self-care (01) ==
LOC: SL 20:15
PROVIDERS: PCP Family Medicine; Referring Provider Physician Assistant Medical; Visit Provider Physician Assistant Medical
DX: G47.33 Obstructive sleep apnea (adult) (pediatric) (principal)
CPT/HCPCS: 95811

== ENCOUNTER 2022-09-26 08:00 | Outpatient (RCR) | payer MEDICARE, SELFPAY ==
[2022-08-08 14:30] VITALS: BMI 30.3
--- NOTE | 2022-09-07 11:05 | PCM.CR.ITP ---
Diagnosis Exercise - 30-day Assessment - Visit Date of Eval: 09/07/22 Session #:: 12 - Physician Prescribed Exercise Modalities: Treadmill, Rower, Airdyne, NuStep, SciFit, Lateral [place] Frequency: 3x/week for 12 weeks [36 sessions] Intensity: 60-80% of age predicted maximum heart rate reserve Current METSs:: 4 Target Heart Rate:: 100-125 Current RPE:: 9-10 Maximum Excercise HR:: 107 Resting Blood Pressure: 110/70 Maximum Exercise Blood Pressure: 194/92 EKG Type: NSR to ST with occas PVC's - Outcomes & Goals Goals:: Verbalizes understanding of THR, RPE & goal METS by session 6, Documents in home exercise log/reports 30 min aerobic 5 day/wk by DC, Demonstrates accurate pulse taking by DC, Other additional outcome/goals: see below - Intervention & Plan Exercise Program Goals: Instruct on personal THR & RPE, Instruct on MET level & personal MET goal, Show patient to take own pulse /validate performance until accurate, Instruct on home exercise, Other additional plan/int - 30-day Reassessments 30 day Reassessments:: Progressing - instructed on home exercise - Physical Activity Home Exercise Physical Activity - Home Exercise: Safe Exercise, Warm-up, Self-monitoring, Cool-Down, Home Exercise > 30 min Daily, Sitting Time <3 hours/daily - Outcomes & Goals Outcomes/Goals: Demonstrates correct Warm-up/exercise Cool-Down (S3) if = 2.5 METs, Verbalizes symptoms of exercise intolerance by Session 3 (S3), Demonstrate safe equipment use (S3) & follows exercise prescrition (6), Other: See below - Intervention & Plan Plan/Intervention: Instruct warm-up & cool-down if exercising at > 2 METs, Instruct on symptoms of exercise intolerance & actions to take, Instruct & monitor on saf, Assess intial functional capacity & safety risk, Other See below - 30-day Reassessments 30 day Reassessments:: Progressing - encouraged to cool down Nutrition - Initial Assessment Nutrition - 30-Day Assessment - Program Goals Nutrition Program Goals: LDL <100 optimal. 100 - 129 Near optimal. 130 - 159 Borderline High. 160 - 189 High. Total Cholesterol <200 desirable. 200 - 239 Borderline High. >/= 240 High. HDL < 40 Low >/=60 High. Triglycerides <150 desirable. <199 optimal. VlDL 5 - 40. HgbA1C <7%. BMI <25 Patient has diagnosis of Hyperlipidemia (ICD E78)?: Yes - Visit Date of Assessment:: 09/07/22 Session #:: 12 - Cholesterol/Lipids (Other Core Measures) Determine presence & major risk factors that modify LDL goal: Hypertension or hypertensive medication, Low HDL cholesterol <40 mg/dL*, Family history of premature CHD in Male < 55 years: female <65 yearsFa, Age men > 45 years; women >/= 55 years Outcomes/Goals: Pt IDs own risk factors & lifestyle modifications by Session 10, Verbalizes symptoms of angina & response by session 3., Pt independently manages, Other Additional Outcomes/Goals: Intervention/Plan: Advocate for lipid panel cholesterol medication if applicable, Instruct on personal lipid levels & lipid goals/NCEP guidelines, Instruct on cholesterol, Other additional plan/int 30-day Reassessments:: Progressing - risk factors reviewed - Diabetes (Other Core Measures) Diabetes Type: Not Applicable - Weight Mgt (Other Care) Height: 5 ft 10 in Weight:: 92.986 kg BMI: 29.4 Diagnosis Overweight/Obesity BMI> 30% ICD-10 E66: Yes Diagnosis High BMI/Morbid Obesity BMI> 35% ICD-10 Z68: No Outcomes/Goals: Pt sets, maintains & shows weight loss goal & trend during rehab, Other additional outcomes/goals Intervention/Plan: Instruct on ideal BMI & set weight loss goal w/patient, Assist pt to ID & incorporate diet changes for weight loss by S9, Refer to Structured Weight Loss program as appropriate, Encourage goal of using 250-300dcal per session for weight loss, Other additional plan/interventions 30 day Reassessments:: Progressing - will attend nutrition class - Healthy Eating Habits Will attend diet classes:: Yes Outcomes/Goals:: Consume diet rich in vegs,fruits,whole grain/high fiber,fish,lean meat, Limit sat/trans fats,cholesterol & added salts & sugars, Other additional outcome/goals: Intervention/Plan:: Assess current eating habits, Other Additional plan/interventions 30-day Reassessments:: Progressing - will attend nutrition class - Education Gave educational materials for:: Signs & symptoms of hypoglycemia, Signs & symptoms of hyperglycemia, Relate diabetes to coronary artery disease, Healthy eating Nutrition - 60-Day Assessment Nutrition - 90-Day Assessment Nutrition - Final Assessment Core - Initial Assessment Core - 30-Day Assessment - Visit Date of Eval: 09/07/22 Session #:: 12 - Medication Compliance Preventative Medication(s):: Aspirin, LYDIA inhibitor, Statin/lipid, Beta oscar H/O mental health issues: depression, anxiety, or addiction?: No Doesn?t believe in the benefits of treatment?: No Believes medications are unnecessary or harmful?: No Has a concern about medication side effects?: No Expresses concern over the cost of medications?: No Outcomes/Goals: Verbalizes medications,desired effect & common side effects @ DC, Pt self-reports following medication regimen, Keeps card in wallet w/medications listed by DC, Other additional outcome/goals: Interventions/plans: Instruct on medication effects & side effects, Review medication list w/patient every two weeks, Instruct importance of taking meds as ordered & assist problem solving, Other additional 30-day Reassessments:: Progressing - encouraged to take meds - Tobacco Use Tobacco Use: Non-smoker Do you use smokeless tobacco?: No - Hypertension Hypertension Diagnosis:: Hypertension ICD-10 I10 Resting Blood Pressure:: 110/70 [place] [employer] Hypertension Guidelines: [place] [employer] Hypertension Guidelines. Normal BP Less than 120/80. Elevated BP 120/80. Hypertension Stage 1: BP 130-139/80-89. Hypertesnion Stage 2: BP 140 or higher/90 or higher. Hypertension Crisis: BP higher than 180/120 Peak Exercise Blood Pressure:: 194/92 Outcomes/Goals: Able to verbalize/achieve optimal blood pressure <130/80, Incorporates diet changes & exercise for blood pressure control by DC, Other additional outcomes/goals Interventions/plan: Instruct on optimal blood pressure, hypertension & medications, Instruct on effects of sodium, alcohol, stress, exercise &hypertension, Other additional plan/interventions 30 day Reassessments:: Progressing - encouraged to take meds - Tobacco Cessation Referral Smoking Cessation Referral:: No Individual Education/Counseling:: No Education Schedule Given:: Yes Core - 60-Day Assessment Core - 90 Day Assessment Core - Final Assessment Psychosocial - Initial Assess Psychosocial - 30-Day Assess - VIsit History of previous Mental disease:: No Psychosocial - 60-Day Assess Psychosocial - 90-Day Assess Psychosocial - Final Assessmen Patient Health Questionnaire 30-Day Re-eval Assessment 1. Little interest or pleasure in doing things: Several days 2. Feeling down, depressed, or hopeless: Not at all 3. Trouble falling or staying asleep, or sleeping too much: Several days 4. Feeling tired or having little energy: Nearly every day 5. Poor appetite or overeating: Not at all 6. Feeling bad about yourself -- or that you are a failure or have let yourself or your family down: Several days 7. Trouble concentrating on things, such as reading the newspaper or watching television: Not at all 8. Moving or speaking so slowly that other people could have noticed. Or the opposite - being so fidgety or restless that you have been moving around a lot more than usual: Not at all 9. Thoughts that you would be better off , or of hurting yourself in some way: Not at all How difficult have these problems made it for you to do your work, take care of things at home, or get along with other people?: Somewhat difficult Total Score: 6 Self-Efficacy 30-Day Re-eval Assessment We would like to know how confident you are in doing certain activities. Please select your confidence level for:: Select your confidence level for the following using the scale 1-10 where 1 is not at all confident and 10 is totally confident. Your score is the average of all 6 responses. Fatigue: How confident are you that you can keep the fatigue caused by your disease from interfering with the things you want to do? Select Number: 7 Physical Discomfort or Pain: How confident are you that you can keep the physical discomfort or pain of your disease from interfering with the things you want to do? Select Number: 7 Emotional Distress: How confident are you that you can keep the emotional distress caused by your disease from interfering with the things you want to do? Select Number: 7 Other Symptoms or Health Problems: How confident are you that you can keep other symptoms or health problems from interfering with the things you want to do? Select Number: 7 Different Tasks and Activities: How confident are you that you can do the different tasks and activities needed to manage your health condition so as to reduce your need to see a doctor? Select Number: 7 Medication: How confident are you that you can do things other than just taking medication to reduce how much your illness affects your everyday life? Select Number: 7 Total Score:: 7 Nutrition Survey
[2022-09-07 11:15] VITALS: BP 110/70; BP 194/92; BMI 29.4
== END 2022-09-27 23:59 ==
LOC: CR 08:00
PROVIDERS: PCP Family Medicine; Visit Provider Internal Medicine Cardiovascular Disease
DX: I21.4 Non-ST elevation (NSTEMI) myocardial infarction (principal); I25.10 Atherosclerotic heart disease of native coronary artery without angina pectoris; Z95.5 Presence of coronary angioplasty implant and graft
CPT/HCPCS: 93798

== ENCOUNTER 2022-10-28 08:00 | Outpatient (RCR) | payer MEDICARE, SELFPAY ==
[2022-09-07 11:15] VITALS: BMI 29.4
[2022-09-28 00:27] VITALS: BP 110/70; BP 194/92
--- NOTE | 2022-10-05 15:02 | CR.ITP_ITS ---
Diagnosis Exercise - 60-day Assessment - Visit Date of Eval: 10/05/22 Session #:: 24 - Physician Prescribed Exercise Modalities: Treadmill, Rower, Airdyne Frequency: 3x/week for 12 weeks [36 sessions] Intensity: 60-80% of age predicted maximum heart rate reserve Current METSs:: 7 Target Heart Rate:: 100-125 Current RPE:: 15 Maximum Excercise HR:: 132 Resting Blood Pressure: 104/66 Maximum Exercise Blood Pressure: 190/102 EKG Type: NSR to ST with freq PVC's, vent bigeminy, vent quadrigeminy - Outcomes & Goals Goals:: Verbalizes understanding of THR, RPE & goal METS by session 6, Documents in home exercise log/reports 30 min aerobic 5 day/wk by DC, Demonstrates accurate pulse taking by DC, Other additional outcome/goals: see below - Intervention & Plan Exercise Program Goals: Instruct on personal THR & RPE, Instruct on MET level & personal MET goal, Show patient to take own pulse /validate performance until accurate, Instruct on home exercise, Other additional plan/int - 30-day Reassessments 30 day Reassessments:: Progressing - THR explained - Physical Activity Home Exercise Physical Activity - Home Exercise: Safe Exercise, Warm-up, Self-monitoring, Cool-Down, Home Exercise > 30 min Daily, Sitting Time <3 hours/daily - Outcomes & Goals Outcomes/Goals: Demonstrates correct Warm-up/exercise Cool-Down (S3) if = 2.5 METs, Verbalizes symptoms of exercise intolerance by Session 3 (S3), Demonstrate safe equipment use (S3) & follows exercise prescrition (6), Other: See below - Intervention & Plan Plan/Intervention: Instruct warm-up & cool-down if exercising at > 2 METs, Instruct on symptoms of exercise intolerance & actions to take, Instruct & monitor on saf, Assess intial functional capacity & safety risk, Other See below - 30-day Reassessments 30 day Reassessments:: Progressing - cool down encouraged Nutrition - Initial Assessment Nutrition - 30-Day Assessment Nutrition - 60-Day Assessment - Program Goals Nutrition Program Goals: LDL <100 optimal. 100 - 129 Near optimal. 130 - 159 B orderline High. 160 - 189 High. Total Cholesterol <200 desirable. 200 - 239 Borderline High. >/= 240 High. HDL < 40 Low >/=60 High. Triglycerides <150 desirable. <199 optimal. VlDL 5 - 40. HgbA1C <7%. BMI <25 Patient has diagnosis of Hyperlipidemia (ICD E78)?: Yes - Visit Date of Assessment:: 10/05/22 Session #:: 24 - Cholesterol/Lipids (Other Core Measures) Determine presence & major risk factors that modify LDL goal: Hypertension or hypertensive medication, Low HDL cholesterol <40 mg/dL*, Family history of premature CHD in Male < 55 years: female <65 yearsFa, Age men > 45 years; women >/= 55 years Outcomes/Goals: Pt IDs own risk factors & lifestyle modifications by Session 10, Verbalizes symptoms of angina & response by session 3., Pt independently manages, Other Additional Outcomes/Goals: Intervention/Plan: Advocate for lipid panel cholesterol medication if applicable, Instruct on personal lipid levels & lipid goals/NCEP guidelines, Instruct on cholesterol, Other additional plan/int 30-day Reassessments:: Progressing - bloodwork encouraged - Diabetes (Other Core Measures) Diabetes Type: Not Applicable - Weight Mgt (Other Care) Height: 5 ft 10 in Weight:: 92.986 kg BMI: 29.4 Diagnosis Overweight/Obesity BMI> 30% ICD-10 E66: No Diagnosis High BMI/Morbid Obesity BMI> 35% ICD-10 Z68: No Outcomes/Goals: Pt sets, maintains & shows weight loss goal & trend during rehab, Other additional outcomes/goals Intervention/Plan: Instruct on ideal BMI & set weight loss goal w/patient, Assist pt to ID & incorporate diet changes for weight loss by S9, Refer to Structured Weight Loss program as appropriate, Encourage goal of using 250- 300dcal per session for weight loss, Other additional plan/interventions 30 day Reassessments:: Progressing - will attend nutrition class - Healthy Eating Habits Will attend diet classes:: Yes Outcomes/Goals:: Consume diet rich in vegs,fruits,whole grain/high fiber,fish,lean meat, Limit sat/trans fats,cholesterol & added salts & sugars, Other additional outcome/goals: Intervention/Plan:: Assess current eating habits, Other Additional plan/interventions 30-day Reassessments:: Progressing - will attend nutrition class - Education Gave educational materials for:: Signs & symptoms of hypoglycemia, Signs & symptoms of hyperglycemia, Relate diabetes to coronary artery disease, Healthy eating Nutrition - 90-Day Assessment Nutrition - Final Assessment Core - Initial Assessment Core - 30-Day Assessment Core - 60-Day Assessment - Visit Date of Eval: 10/05/22 Session #:: 24 - Medication Compliance Preventative Medication(s):: Aspirin, LYDIA inhibitor, Statin/lipid, Beta oscar Doesn?t believe in the benefits of treatment?: No Believes medications are unnecessary or harmful?: No Has a concern about medication side effects?: No Expresses concern over the cost of medications?: No Outcomes/Goals: Verbalizes medications,desired effect & common side effects @ DC, Pt self-reports following medication regimen, Keeps card in wallet w/medications listed by DC, Other additional outcome/goals: Interventions/plans: Instruct on medication effects & side effects, Review medication list w/patient every two weeks - pt encouraged to take meds properly, Instruct importance of taking meds as ordered & assist problem solving, Other additional 30-day Reassessments:: Progressing - Hypertension Hypertension Diagnosis:: Hypertension ICD-10 I10 Resting Blood Pressure:: 104/66 [place] [employer] Hypertension Guidelines: [place] [employer] Hypertension Guidelines. Normal BP Less than 120/80. Elevated BP 120/80. Hypertension Stage 1: BP 130-139/80-89. Hypertesnion Stage 2: BP 140 or higher/90 or higher. Hypertension Crisis: BP higher than 180/120 Peak Exercise Blood Pressure:: 190/102 Outcomes/Goals: Able to verbalize/achieve optimal blood pressure <130/80, Incor porates diet changes & exercise for blood pressure control by DC, Other additional outcomes/goals Interventions/plan: Instruct on optimal blood pressure, hypertension & medica tions, Instruct on effects of sodium, alcohol, stress, exercise &hypertension, Other additional plan/interventions 30 day Reassessments:: Progressing - Tobacco Cessation Referral Smoking Cessation Referral:: No Individual Education/Counseling:: No Education Schedule Given:: Yes Core - 90 Day Assessment Core - Final Assessment Psychosocial - Initial Assess Psychosocial - 30-Day Assess Psychosocial - 60-Day Assess - VIsit Date of Eval: 10/05/22 Session #:: 24 History of previous Mental disease:: No Psychosocial - 90-Day Assess Psychosocial - Final Assessmen Patient Health Questionnaire 60-Day Re-eval Assessment 1. Little interest or pleasure in doing things: Several days 2. Feeling down, depressed, or hopeless: Not at all 3. Trouble falling or staying asleep, or sleeping too much: Several days 4. Feeling tired or having little energy: Nearly every day 5. Poor appetite or overeating: Not at all 6. Feeling bad about yourself -- or that you are a failure or have let yourself or your family down: Several days 7. Trouble concentrating on things, such as reading the newspaper or watching television: Not at all 8. Moving or speaking so slowly that other people could have noticed. Or the opposite - being so fidgety or restless that you have been moving around a lot more than usual: Not at all 9. Thoughts that you would be better off , or of hurting yourself in some way: Not at all How difficult have these problems made it for you to do your work, take care of things at home, or get along with other people?: Somewhat difficult Total Score: 6 Self-Efficacy 60-Day Re-eval Assessment We would like to know how confident you are in doing certain activities. Please select your confidence level for:: Select your confidence level for the following using the scale 1-10 where 1 is not at all confident and 10 is totally confident. Your score is the average of all 6 responses. Fatigue: How confident are you that you can keep the fatigue caused by your disease from interfering with the things you want to do? Select Number: 7 Physical Discomfort or Pain: How confident are you that you can keep the physical discomfort or pain of your disease from interfering with the things you want to do? Select Number: 7 Emotional Distress: How confident are you that you can keep the emotional distress caused by your disease from interfering with the things you want to do? Select Number: 7 Other Symptoms or Health Problems: How confident are you that you can keep other symptoms or health problems from interfering with the things you want to do? Select Number: 7 Different Tasks and Activities: How confident are you that you can do the different tasks and activities needed to manage your health condition so as to reduce your need to see a doctor? Select Number: 7 Medication: How confident are you that you can do things other than just taking medication to reduce how much your illness affects your everyday life? Select Number: 7 Total Score:: 7 Nutrition Survey
[2022-10-05 15:19] VITALS: BP 104/66; BP 190/102; BMI 29.4
== END 2022-10-28 23:59 ==
LOC: CR 08:00
PROVIDERS: PCP Family Medicine; Referring Provider Internal Medicine Cardiovascular Disease; Visit Provider Internal Medicine Cardiovascular Disease
DX: I25.2 Old myocardial infarction (principal); I25.10 Atherosclerotic heart disease of native coronary artery without angina pectoris; Z95.5 Presence of coronary angioplasty implant and graft
CPT/HCPCS: 93798

== ENCOUNTER 2022-11-07 08:00 | Outpatient (RCR) | payer MEDICARE, SELFPAY ==
[2022-10-05 15:19] VITALS: BMI 29.4
[2022-10-29 01:49] VITALS: BP 104/66; BP 190/102
== END 2022-11-27 23:59 ==
LOC: CR 08:00
PROVIDERS: PCP Family Medicine; Referring Provider Internal Medicine Cardiovascular Disease; Visit Provider Internal Medicine Cardiovascular Disease
DX: I25.2 Old myocardial infarction (principal); I25.10 Atherosclerotic heart disease of native coronary artery without angina pectoris; Z95.5 Presence of coronary angioplasty implant and graft
CPT/HCPCS: 93798

== ENCOUNTER 2022-12-16 17:28 | Emergency (ER) | payer MEDICARE, SELFPAY ==
[2022-10-05 15:19] VITALS: BMI 29.4
[2022-12-16 17:29] VITALS: BP 130/87; PULSE 74; RESP 16; TEMP 36.6; O2SAT 97; BMI 23.8
[2022-12-16] MEDS: Diphth,Pertuss(Acell),Tet Vac 0.5 ML Vial IM (18:00)
--- NOTE | 2022-12-16 18:03 | EDS_ITS ---
HPI History of Present Illness Chief Complaint: Laceration Informant: patient Onset/Context/Timing Onset: Today Current Severity: Mild Maximum Severity: Mild Narrative Narrative: Patient presents with left index finger laceration. He was taking down a wall with glaze tile and a piece came down across his left index finger that he sustained a laceration. He is right-hand dominant. Last tetanus update was 2016. 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 Generalized anxiety disorder GERD (gastroesophageal reflux disease) Hemorrhoids History of vitamin D deficiency Hyperlipidemia Non-ST elevation [place] (NSTEMI) Home Medications esomeprazole magnesium 40 mg capsule,delayed release 40 mg PO DAILY Check with primary doctor 07/16/17 [History Last Taken 07/16/17] ferrous sulfate 325 mg (65 mg iron) tablet 325 mg PO DAILY Check with primary doctor 07/16/22 [History Last Taken Unknown] multivitamin 1 tab PO DAILY Check with primary doctor 07/16/22 [History Last Taken Unknown] tamsulosin 0.4 mg capsule 0.4 mg PO DAILY Check with primary doctor 07/16/22 [History Last Taken Unknown] testosterone cypionate 200 mg/mL intramuscular oil 200 mg IM QMONTH Check with primary doctor 07/16/22 [History Last Taken Unknown] nitroglycerin 0.4 mg sublingual tablet 0.4 mg sublingual Q5M PRN Cardiac/Chest Pain #30 tabs 07/19/22 [Rx Last Taken Unknown] cholecalciferol (vitamin D3) 25 mcg (1,000 unit) capsule 25 mcg PO DAILY 08/08/22 [History Last Taken Unknown] prednisone 10 mg tablet 10 mg PO .COMPLEX #30 tabs 08/08/22 [Rx Last Taken Unknown] aspirin 81 mg tablet,delayed release 81 mg PO BREAKFAST #30 tabs 08/19/22 [Rx Last Taken Unknown] clopidogrel 75 mg tablet (Plavix) 75 mg PO DAILY #90 tabs 08/27/22 [Rx Last Taken Unknown] losartan 25 mg tablet 25 mg PO DAILY #90 tabs 08/30/22 [Rx Last Taken Unknown] metoprolol succinate 25 mg tablet,extended release 24 hr (Toprol XL) 25 mg PO DAILY #90 tabs 10/27/22 [Rx Last Taken Unknown] Allergy/AdvReac Type Severity Reaction Status Date / Time erythromycin base Allergy Intermediate Nausea/Vom/ Verified 12/16/22 17:31 Diarrhea niacin Allergy Intermediate Hives Verified 12/16/22 17:31 [From Niaspan Extended-Release] Penicillins Allergy Unknown Verified 12/16/22 17:31 atorvastatin AdvReac Intermediate myalgias Verified 12/16/22 17:31 cerivastatin [From Baycol] AdvReac Intermediate leg cramps Verified 12/16/22 17:31 Family History Father Alzheimer's disease Mother CAD (coronary artery disease) Diabetes Heart disease open heart surgery History of motor vehicle accident Surgical History H/O arthroscopy of knee History of foot surgery (~07/2019) History of hemorrhoidectomy History of open reduction and internal fixation (ORIF) procedure History of surgery on upper extremity History of tonsillectomy History of umbilical hernia repair History of varicose vein stripping S/P excision of neuroma Stented coronary artery (07/18/22) Social History Smoking Status: Never smoker alcohol intake: current alcohol intake frequency: a few times a month substance use type: does not use caffeine: Yes Type: coffee Number of servings: 1 ROS ROS ED Constitutional Constitutional ED: Denies chills or fever(s) Eyes Eyes: Denies discharge from eye(s) ENT ENT ED: Denies discharge from eye(s), rhinorrhea or sore throat Cardiovascular Cardiovascular: Denies chest pain or palpitations Respiratory/Chest Respiratory/Chest: Denies cough or dyspnea Gastrointestinal Gastrointestinal: Denies abdominal pain, nausea or vomiting Genitourinary Genitourinary ED: Denies difficulty urinating or dysuria Musculoskeletal Musculoskeletal: Reports extremity pain; Denies back pain Integumentary Reports other Details: Left index finger laceration ; Denies Abrasions or rash Neurologic Neurologic: Denies headache(s), paresthesias or weakness Psychiatric Psychiatric: Denies anxiety or depression Allergic/Immunologic Allergic/Immunologic ED: Denies lip swelling or urticaria EXAM Physical Exam Const Vital Signs: 12/16/22 17:29 Temperature 98 F Temperature Source Temporal Pulse Rate 74 Respiratory Rate 16 Blood Pressure 130/87 H Blood Pressure Mean 101 Pulse Ox 97 Oxygen Delivery Method Room Air Positive well nourished and well developed General Appearance ED: well developed HEENT Reports moist mucous membranes Eyes PERRL and EOMs intact bilaterally Chest Wall inspection of chest normal and palpation of chest normal Resp normal respiratory effort and clear to auscultation bilaterally Cardio regular rate and regular rhythm Extremity Extremity Narrative: 2.5 cm laceration over the PIP joint of the left index finger along the extensor surface. Bleeding well controlled at this time. Good range of motion. Good cap refill and sensation distally. Neuro oriented x3 and no sensory deficits noted Motor Exam: strength 5/5 throughout MDM MDM MDM Narrative Medical decision making narrative: Tetanus update is provided. Digital block is performed with 2.5 cc of 1% lidocaine. Wound is cleansed and irrigated. Skin is closed with 3 simple sutures of 5-0 nylon. Patient is to have sutures removed in 1 week. Discharge Plan Triage Chief Complaint: Laceration ED Provider: Marti Tom Dx/Rx/DC Orders Clinical Impression: Finger laceration Instructions: ED Laceration Extremity Prescriptions: No Action cholecalciferol (vitamin D3) 25 mcg (1,000 unit) capsule 25 mcg PO DAILY prednisone 10 mg tablet 10 mg PO .COMPLEX Qty: 30 0RF Rx Instructions: Take 4 pills for 3 days, 3 pills for 3 days, 2 pills for 3 days, take 1 pill for 3 days esomeprazole magnesium 40 MG capsule,delayed release(DR/EC) 40 mg PO DAILY multivitamin Tablet 1 tab PO DAILY tamsulosin 0.4 mg capsule 0.4 mg PO DAILY ferrous sulfate 325 mg (65 mg iron) Tablet 325 mg PO DAILY testosterone cypionate 200 mg/mL oil 200 mg IM QMONTH nitroglycerin 0.4 mg Tablet, Sublingual 0.4 mg sublingual Q5M PRN (Reason: Cardiac/Chest Pain) Qty: 30 0RF aspirin 81 mg tablet,delayed release (DR/EC) 81 mg PO BREAKFAST Qty: 30 11RF clopidogrel [Plavix] 75 mg tablet 75 mg PO DAILY Qty: 90 3RF losartan 25 mg tablet 25 mg PO DAILY Qty: 90 3RF metoprolol succinate [Toprol XL] 25 mg tablet extended release 24 hr 25 mg PO DAILY Qty: 90 3RF Primary Care Provider: Blake Kuhn Referrals: Blake Kuhn MD [Primary Care Provider] - 7 Days for suture removal Disposition Disposition: Home, Self Care
[2022-12-16] MEDS: Lidocaine 1% (20 ml mdv) 20 ML Vial INFILT (18:25)
== END 2022-12-16 18:26 | disposition home or self-care (01) ==
PROVIDERS: Emergency Provider Emergency Medicine; PCP Family Medicine; Visit Provider Emergency Medicine
DX: S61.211A Laceration without foreign body of left index finger without damage to nail, initial encounter (principal); I25.10 Atherosclerotic heart disease of native coronary artery without angina pectoris; E78.5 Hyperlipidemia, unspecified; W26.8XXA Contact with other sharp object(s), not elsewhere classified, initial encounter; Z23 Encounter for immunization
CPT/HCPCS: 12001; 90715; 99283

== ENCOUNTER → 2023-02-24 | Outpatient (CLI) | payer MEDICARE, SELFPAY ==
[2022-10-05 15:19] VITALS: BMI 29.4
[2023-02-24 16:40] LABS: Thyroid Stim Hormone (TSH) 0.87 uIU/mL (0.358-3.74)
[2023-02-24 17:23] LABS: Hemoglobin A1c 5.5 % (3.8-5.6)
== END | disposition home or self-care (01) ==
LOC: LAB 15:39
PROVIDERS: PCP Family Medicine; Referring Provider Physician Assistant Medical; Visit Provider Physician Assistant Medical
DX: R73.09 Other abnormal glucose (principal); E78.5 Hyperlipidemia, unspecified
CPT/HCPCS: 36415; 83036; 84443

== ENCOUNTER 2023-05-04 09:30 | Outpatient (RCR) | payer MEDICARE, SELFPAY ==
[2022-10-05 15:19] VITALS: BMI 29.4
--- NOTE | 2023-03-29 12:48 | HP.PTEVAL ---
Patient's Visit Information Visit Information Visit Information: KETAN COTTON is a 67 year old M referred to Physical Therapy by Dr. Blake Kuhn MD with a diagnosis of B knee OA. Date of Evaluation: 03/28/23 Physical Therapist: Julito Dee DPT Visit Plan Frequency: 2x /Week Duration: 6 Weeks Plan: Start with joint mobs to allow for tibial femoral ROM, HS and hip flexor stretching. Add in BLE strengthening with focus on quad, HS, glute med and glute max. Subjective Subjective: Pt. is here today for his initial evaluation with diagnosis of B knee OA, L worse than R. Both medial compartment degeneration. pt. reports having increased L medial knee pain for the past few months. No mech of injury. Pt. did have xrays showing medial compartment OA, L moderate and R minimal. Pt. has increased pain with prolonged walking, twisting, stairs. Pt. has relief with rest, but never goes away. 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 PMH: back injury resulting in some L sided weakness, L foot crush injury. Pt. is hopeful to reduce symptoms in order to get back to all work and recreational activities without increase in symptoms. Pain L knee: Pain Intensity (Out of 10): 3 Pain Intensity Range: 4 R knee: Pain Intensity (Out of 10): 0 Pain Intensity Range: 0 and 2 Objective Objective: POSTURE: Pt. has slight B varus knee positioning. Pt. has normal wt. shifting between BLEs. PALPATION: Pt. has tenderness at medial/anterior joint line. No MCL pain, no patellar pain. NEURO: Pt. has normal sensation in BLEs. Pt. has normal DTR of BLEs. Pt. is able to rise on heels and toes without issues. ROM: Pt. lacks full TKE on LLE (0-2-129deg.), RLE (0-0-134deg). PT. has tight B HS and hip flexors bilaterally, as well at quad muscle tightness. MMT: RLE: ankle 5/5 throughout; knee: ext 4+/5, flexion 5-/5, hip: flexion 4+/5, abd 4/5, ext 4/5. LLE: ankle 5/5 throughout; knee: ext 4+/5, flexion 5-/5, hip: flexion 4+/5, abd 4/5, ext 4/5. Core strength: fair. GAIT: Pt. has slight antalgic pattern during L stance phase. Pt. also has lacking ankle mobility due to previous injury. Pt. has slight toeing out L side. STAIRS: Pt. is able to complete, but does have increased pain with descending during L loading phase. Balance/Special Test Scores Lower Extremity Functional Score: 44 Goals Goal 1:: LTG: Pt. to be I with HEP. Goal Time Frame: 4-6 Weeks Goal 2:: STG: Pt. to sleep throughout the night without increase in symptoms. Goal Time Frame: 2-4 Weeks Goal 3:: LTG: Pt. to able to work without increase in B medial knee pain. Goal Time Frame: 4-6 Weeks Goal 4:: LTG: Pt. to have full B knee ROM without increase in symptoms. Goal Time Frame: 4-6 Weeks Goal 5:: LTG: Pt. to have 5/5 strength throughout BLEs to allow for increased tolerance to all work and recreational activities. Goal Time Frame: 4-6 Weeks Rehabilitation Potential Physical Therapy Diagnosis: Pt. has signs and symptoms consistent with B knee OA L worse then R. Both effecting the medial compartment. Pt. has signs and symptoms consistent with B knee hypomobility, weakness and would benefit from PT to work on the above limitations progress back to all recreational and would activities without limitations. Anticipated Interventions Patient/Client Instruction: Educate patient on: Condition, Plan of Care, Risk Factors and Benefits of Fitness Program For the Purpose of:: To improve decision making, To facilitate caregiver knowledge, To improve self management, To prevent re-injury, To improve ability to perform tasks related to life management and To improve tolerance to ADL's Therapeutic Exercise to Include: Strength training, Power training, Endurance training, Postural training, Passive ROM and Dynamic Lumbar Stabilization For the Purpose of:: To decrease pain, To increase ROM, To improve nutrient delivery to tissue, To increase oxygenation perfusion, To improve muscle performance and motor function, To improve ability to perform ADL's, To improve gait and locomotor functions, To improve health of tissue and To decrease soft tissue restriction Manual Therapy Techniques to Include: Mobilization For the Purpose of:: To decrease pain, To increase ROM, To improve nutrient delivery to tissue, To increase oxygenation perfusion and To decrease soft tissue restriction Text: Thank you for the opportunity to evaluate your patient. For Medicare and Medicare HMO plans, please review the plan of care and approve it. It will need to be FAXED BACK to us at [phone] for Medicare purposes. For Medicare only, by signing this I certify the plan of care. Please let me know if there are questions or concerns regarding this plan of care. Physician Signature: Date:
--- NOTE | 2023-05-04 12:33 | HP.PTDCSUM_ITS ---
Discharge Summary D/C summary: It has been my pleasure to treat KETAN COTTON referred by Dr. Blake Kuhn MD, with the diagnosis of B knee OA for a total of 6 visit(s). Discharge Date: 05/04/23 Please see the following information for a summary of their discharge status. Subjective Subjective: Pt. reports no pain currently. Pt. repots being 90-95% better overall. Pt. reports working without issues. Pt. pleased. Pain L knee: Pain Intensity (Out of 10): 0 R knee: Pain Intensity (Out of 10): 0 Overall Improvement % Improvement: 90 Objective Objective/Function: ROM: R knee: 0-0-129deg, L knee: 0-0-132deg. Normal hip ROM and HS length. MMT: R knee: ext 88.33, flexion 67.1#; hip 5/5 throughout. LLE: R knee: ext 81.6#, flexio 62.8#, hip: 5/5 throughout. GAIT: normal pattern no issues. STAIRS: Normal pattern no issues. Pt. is overall doing much better. Pt. has close to symmetrical strength. No issues with stairs and only occasional issues with work activities. He is I with HEP. Pt. will be DC from PT at this point in time. Goals Goal 1:: LTG: Pt. to be I with HEP. Goal Progress: Goal Met Goal 2:: STG: Pt. to sleep throughout the night without increase in symptoms. Goal Progress: Goal Met Goal 3:: LTG: Pt. to able to work without increase in B medial knee pain. Goal Progress: Goal Met Goal 4:: LTG: Pt. to have full B knee ROM without increase in symptoms. Goal Progress: Goal Met Goal 5:: LTG: Pt. to have 5/5 strength throughout BLEs to allow for increased tolerance to all work and recreational activities. Goal Progress: Goal Met Plan Plan: Start with joint mobs to allow for tibial femoral ROM, HS and hip flexor stretching. Add in BLE strengthening with focus on quad, HS, glute med and glute max. D/C Information Discharge Comments: Pt. was treated in PT for BLE strength and ROM. Pt. is having less occurrences of medial knee pain and is back to work without much li mitations. Pt. is overall doing better and will be DC from PT at this point in time. d/c sentence: If there are questions or concerns regarding this patient's physical therapy, please feel free to call me at [phone]. Thank you for the referral of this patient. Sincerely, Julito Dee, DPT Balance/Gait/Functional tests Balance/Special Test Scores Lower Extremity Functional Score: 63 Improvement % Improvement: 90
== END 2023-05-04 19:00 | disposition home or self-care (01) ==
LOC: PT 09:30
PROVIDERS: PCP Family Medicine; Referring Provider Family Medicine; Visit Provider Family Medicine
DX: M17.0 Bilateral primary osteoarthritis of knee (principal)
CPT/HCPCS: 97110; 97161; 97164

== ENCOUNTER → 2023-06-29 | Outpatient (CLI) | payer MEDICARE, SELFPAY ==
[2022-10-05 15:19] VITALS: BMI 29.4
== END | disposition home or self-care (01) ==
LOC: SL 11:44
PROVIDERS: PCP Family Medicine; Referring Provider Nurse Practitioner Acute Care; Visit Provider Nurse Practitioner Acute Care
DX: G47.33 Obstructive sleep apnea (adult) (pediatric) (principal)
CPT/HCPCS: 98960; G0463

== ENCOUNTER 2023-09-19 21:31 | Emergency (ER) | payer MEDICARE, SELFPAY ==
[2022-10-05 15:19] VITALS: BMI 29.4
[2023-09-19 21:32] VITALS: BP 159/91; PULSE 64; RESP 14; TEMP 36.8; O2SAT 100; BMI 30.9
--- NOTE | 2023-09-19 21:57 | CT_ITS ---
EXAM: CT THORACIC SPINE WITHOUT INTRAVENOUS CONTRAST CLINICAL INDICATION: back pain TECHNIQUE: Helically acquired images were obtained of the thoracic spine without intravenous contrast. 2D reformats were reviewed. This CT exam was performed using one or more of the following dose reduction techniques: automated exposure control, adjustment of the mA and/or kV according to patient size, and/or use of iterative reconstruction technique. COMPARISON: CT cervical spine on the same date. FINDINGS: VERTEBRAE: Subtle concave appearance of the superior endplate of T3 without significant vertebral body height loss. Subtle lucency at the anterior corner of the superior endplate suggesting an acute mild compression fracture. There is a Schmorl''s node within the superior endplate of T7 although subtle lucency at the anterior superior corner of the T7 vertebral body suggesting superimposed acute mild compression deformity without significant vertebral body height loss. No additional fracture. No traumatic subluxation. No spondylolysis. Maintained thoracic kyphosis. Multilevel facet arthrosis. DISCS/SPINAL CANAL/NEURAL FORAMINA: Multilevel intervertebral disc height loss. No critical spinal canal and neural foraminal stenosis. VASCULATURE: Visualized thoracic aorta is not dilated. LYMPH NODES: No significant abnormality. No retroperitoneal adenopathy. LUNGS AND PLEURAL SPACES: Normal as visualized. No mass. No consolidation or edema. No pleural effusion or thickening. No pneumothorax. CT/Spine Thoracic without Contras IMPRESSION: 1. Likely acute mild superior endplate compression fracture of T3. 2. Likely acute mild compression fracture of T7 associated with a Schmorl''s node. 3. Multilevel degenerative changes. RECOMMENDATIONS: Consider MRI for further evaluation. Electronically Signed: Gerardo Adrian DO at 22:37 EST ,
--- NOTE | 2023-09-19 21:57 | CT_ITS ---
EXAM: CT HEAD WITHOUT INTRAVENOUS CONTRAST CLINICAL INDICATION: head injury TECHNIQUE: Multiple axial images were obtained of the head without intravenous contrast. This CT exam was performed using one or more of the following dose reduction techniques: automated exposure control, adjustment of the mA and/or kV according to patient size, and/or use of iterative reconstruction technique. COMPARISON: No relevant prior studies available. FINDINGS: BRAIN AND EXTRA-AXIAL SPACES: No significant abnormality. No intra- or extra-axial hemorrhage. No evidence of acute infarct. No intracranial mass or mass effect. There is preservation of the jonas/white matter interface. Ventricles are appropriate for age. Basal cisterns are patent. BONES/JOINTS: No significant abnormality. No discrete lytic or blastic abnormalities. SINUSES: No significant findings. MASTOID AIR CELLS: No significant effusion. ORBITS: No acute findings. CT/Brain/Head without Contrast IMPRESSION: Negative head/brain CT without intravenous contrast. Electronically Signed: Gerardo Adrian DO at 22:33 EST ,
--- NOTE | 2023-09-19 21:57 | CT_ITS ---
EXAM: CT CERVICAL SPINE WITHOUT INTRAVENOUS CONTRAST CLINICAL INDICATION: neck pain TECHNIQUE: Helically acquired images were obtained of the cervical spine without intravenous contrast. 2D reformatted images were reviewed. This CT exam was performed using one or more of the following dose reduction techniques: automated exposure control, adjustment of the mA and/or kV according to patient size, and/or use of iterative reconstruction technique. COMPARISON: Thoracic spine CT on the same date. FINDINGS: VERTEBRAE: Possible mild T3 superior endplate compression deformity is again identified. No additional fracture identified in the [id number]. Multilevel facet, uncovertebral joint, and endplate osteophytosis. No traumatic subluxation. No discrete lytic or blastic abnormality. Normal alignment. Normal craniocervical junction and cervicothoracic junction. DISCS/SPINAL CANAL/NEURAL FORAMINA: Mild to moderate multilevel spinal canal stenosis. Multilevel intervertebral disc height loss. Mild to moderate multilevel neural foraminal narrowing. SOFT TISSUES: No significant abnormality. No prevertebral soft tissue swelling. LYMPH NODES: No significant abnormality. No cervical adenopathy. LUNG APICES: Normal as visualized. Clear. CT/Spine Cervical without Contras IMPRESSION: 1. Possible mild T3 superior endplate compression deformity is again identified. 2. Degenerative changes in the cervical spine. No additional evidence of acute osseous abnormality. Electronically Signed: Gerardo Adrian DO at 22:42 EST ,
[2023-09-19] MEDS: HYDROcodone Bitartrate/Apap 5/325 Tablet PO (22:01)
--- OUTSIDE RECORDS SUMMARY | 2023-09-19 22:05 | XMS RPT_ITS | CCD ---
Author Name Unknown Address [address] [place] [address] Organization [facility] Care Team Providers Care Support Engineer Name Role Phone Yousif Franco MD Primary Care Provider Pacheco Kuhn MD Primary Care Provider [phone] PACHECO KUHN Primary Care Unavailable PACHECO KUHN Referring Unavailable PACHECO KUHN Primary Care Unavailable PACHECO KUHN Attending Unavailable PACHECO KUHN Primary Care Unavailable PACHECO KUHN Attending Unavailable PACHECO KUHN Primary Care Unavailable PACHECO KUHN Referring Unavailable PACHECO KUHN Primary Care Unavailable PACHECO KUHN Attending Unavailable CHRISTOPHER JAMES Attending Unavailable PACHECO KUHN Primary Care Unavailable PACHECO KUHN Primary Care Unavailable PACHECO KUHN Referring Unavailable PACHECO KUHN Primary Care Unavailable PACHECO KUHN Primary Care Unavailable PACHECO KUHN Primary Care Unavailable PACHECO KUHN Referring Unavailable Allergies Allergy Classification Reported Allergen(s) Allergy Type Date of Onset Reaction(s) Facility (20 sources) atorvastatin; Translations: [ATORVASTATIN CALCIUM] Drug Allergy 08-30-19 06 Intolerance [facility] (20 sources) cerivastatin Drug Allergy 09-07-19 08 Intolerance [facility] Work Phone: (20 sources) Erythromycin; Translations: [ERYTHROMYCIN] Drug Allergy 08-30-19 06 Intolerance [facility] Work Phone: (20 sources) Niacin; Translations: [NIACIN] Drug Allergy 10-05-19 11 [facility] Work Phone: (2 sources) Penicillins; Translations: [PENICILLINS] Drug Intolerance 08-30-19 06 [facility] (20 sources) Environmental allergies [Other] Propensity to adverse reactions 07-02-20 09 [facility] (20 sources) Penicillins Drug Intolerance 08-30-19 06 Hives [facility] (2 sources) cerivastatin; Translations: [BAYCOL] Drug Allergy 07-05-20 Intolerance [facility] Work Phone: (2 sources) Seasonal allergy; Translations: [SEASONAL ALLERGIES] Propensity to adverse reactions 07-05-20 Other: See Comments [facility] Work Phone: (1 source) OTHER; Translations: [OTHER] Propensity to adverse reactions (disorder) 07-02-20 [facility] Repository Medications Current Medications Medication Drug Class(es) Dates Sig (Normalized) Sig (Original) benzonatate 100 mg oral capsule (1 source) Non-narcotic Antitussive Start: 07-05-2023 End: 07-20-2023 take 1 capsule by mouth every eight hours as needed for cough benzonatate (TESSALON PERLE) 100 mg capsule Indications: Acute COVID-19 Take 1 capsule by mouth every 8 hours as needed for cough for up to 15 days. 30 capsule 0 07/05/2023 07/20/2023 Active Completed/Discontinued Medications Medication Drug Class(es) Dates Sig (Normalized) Sig (Original) aspirin 81 mg delayed release oral tablet (20 sources) Platelet Aggregation Inhibitor, Nonsteroidal Anti-inflammatory Drug Start: 07-19-2022 take 1 tablet by mouth once daily at breakfast aspirin, enteric coated (ASPIRIN, ENTERIC COATED) 81 mg EC tablet Take 81 mg by mouth daily with breakfast. 0 07/19/2022 Active Problems Active Problems Problem Classification Problem Date Documented Da te Episodic/Chronic Acute myocardial infarction (2 sources) Myocardial infarction; Translations: [Non-ST elevation (NSTEMI) myocardial infarction] Chronic Adjustment disorders (20 sources) Stress and adjustment reaction; Translations: [Adjustment disorder with other symptoms] Onset: 6 03-03-2016 Chronic Anal and rectal conditions (1 source) Lesion of rectum; Translations: [Disease of anus and rectum, unspecified] Episodic Anxiety disorders (20 sources) Generalized anxiety disorder; Translations: [Generalized anxiety disorder] Onset: 6 10-09-2015 Chronic Coronary atherosclerosis and other heart disease (10 sources) Ischemic chest pain; Translations: [Chronic ischemic heart disease, unspecified] Onset: 3 Chronic Deficiency and other anemia (1 source) Iron deficiency anemia; Translations: [Iron deficiency anemia, unspecified] Episodic Diabetes mellitus without complication (1 source) Hyperglycemia; Translations: [Hyperglycemia, unspecified] Episodic Disorders of lipid metabolism (20 sources) Hyperlipidemia; Translations: [Hyperlipidemia, unspecified] Onset: 6 08-26-2015 Chronic Esophageal disorders (20 sources) Gastroesophageal reflux disease; Translations: [Gastro-esophageal reflux disease without esophagitis] Onset: 1 06-01-2006 Chronic Esophageal disorders (1 source) Esophageal disorders; Translations: [Gastroesophageal reflux disease with esophagitis, unspecified whether hemorrhage] Onset: 1 Gastritis and duodenitis (20 sources) Acute gastritis; Translations: [Acute gastritis without bleeding] 08-30-2005 Episodic Genitourinary symptoms and ill-defined conditions (4 sources) Nocturia; Translations: [Nocturia] Episodic Immunizations and screening for infectious disease (1 source) Encounter for immunization; Translations: [Encounter for immunization] Onset: 3 Episodic Occlusion or stenosis of precerebral arteries (12 sources) Bilateral stenosis of carotid arteries; Translations: [Occlusion and stenosis of bilateral carotid arteries] Onset: 6 10-01-2022 Chronic Osteoarthritis (1 source) Osteoarthritis of knee; Translations: [Osteoarthritis of knee, unspecified] 03-23-2023 Chronic Other connective tissue disease (20 sources) Enthesopathy of hip region; Translations: [Other specified enthesopathies of unspecified lower limb, excluding foot] 06-01-2006 Episodic Other endocrine disorders (20 sources) Male hypogonadism; Translations: [Testicular hypofunction] 05-09-2017 Chronic Other endocrine disorders (1 source) Testicular hypofunction; 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 in male] Onset: 7 Chronic Other gastrointestinal disorders (2 sources) Occult blood in stools; Translations: [Other fecal abnormalities] Episodic Other injuries and conditions due to external causes (1 source) Foreign body in right ear; Translations: [Foreign body in right ear, initial encounter] Episodic Other lower respiratory disease (1 source) Dyspnea on exertion; Translations: [Other forms of dyspnea] Episodic Other lower respiratory disease (1 source) Chronic cough; Translations: [Chronic cough] Episodic Other lower respiratory disease (4 sources) Cough; Translations: [Cough, unspecified type] Episodic Other nervous system disorders (1 source) Other chronic pain; Translations: [Chronic pain of left knee] Onset: 3 Chronic Other non-traumatic joint disorders (2 sources) Pain of left wrist; Translations: [Pain in left wrist] Episodic Other screening for suspected conditions (not mental disorders or infectious disease) (20 sources) Patient encounter status; Translations: [Encounter for screening for malignant neoplasm of colon] Onset: 1 12-10-2020 Episodic Other skin disorders (1 source) Hyperhidrosis; Translations: [Generalized hyperhidrosis] 03-20-2023 Episodic Other upper respiratory infections (2 sources) Acute upper respiratory infection; Translations: [Acute upper respiratory infection, unspecified] Episodic Residual codes; unclassified (13 sources) Obstructive sleep apnea syndrome; Translations: [Obstructive sleep apnea (adult) (pediatric)] Onset: 3 Chronic Residual codes; unclassified (1 source) Obstructive sleep apnea (adult) (pediatric); Translations: [NOE (obstructive sleep apnea)] Onset: 3 Chronic Viral infection (1 source) COVID-19; Translations: [Other specified viral infection] 07-05-2023 Episodic Past or Other Problems Problem Classification Problem Date Documented Da te Episodic/Chronic Acquired foot deformities (20 sources) Left foot drop; Translations: [Foot drop, left foot] Onset: 03-21-2018 03-21-2018 Episodic Administrative/social admission (20 sources) Social problem; Translations: [Problem related to unspecified psychosocial circumstances] Onset: 10-09-2015 10-09-2015 Episodic Allergic reactions (3 sources) Eczema; Translations: [Dermatitis, unspecified] Onset: 03-20-2023 Episodic Conditions associated with dizziness or vertigo (20 sources) Dizziness; Translations: [Dizziness and giddiness] Onset: 10-19-2015 10-19-2015 Episodic Fracture of upper limb (20 sources) Closed fracture of head of radius; Translations: [Displaced fracture of head of unspecified radius, initial encounter for closed fracture] Onset: 09-22-2003 11-24-2003 Episodic Hemorrhoids (20 sources) Internal hemorrhoids; Translations: [Other hemorrhoids] Onset: 11-05-2010 11-05-2010 Episodic Other and unspecified benign neoplasm (20 sources) Benign neoplasm of rectum and anal canal; Translations: [Benign neoplasm of rectum] Onset: 11-05-2010 11-05-2010 Episodic Other non-traumatic joint disorders (2 sources) Pain in left knee; Translations: [Pain in joint, lower leg] Onset: 03-20-2023 03-20-2023 Episodic Other non-traumatic joint disorders (1 source) Pain in left wrist; Translations: [Left wrist pain] Onset: 09-19-2022 Episodic Other skin disorders (1 source) Generalized hyperhidrosis; Translations: [Hyperhidrosis] Onset: 03-20-2023 Episodic Spondylosis; intervertebral disc disorders; other back problems (20 sources) Neck pain; Translations: [Cervicalgia] Onset: 03-21-2018 03-21-2018 Episodic Results Test Name Value Interpretation Reference Range Facil ity Vital Signs Date Time Vital Sign Value Performing Clinician Faci lity 07-05-2023 18:09-0500 Body temperature 100.51 [degF] Tray Rueda MD Work Phone: [facility] 07-05-2023 18:09-0500 Body weight 93.71 kg Tray Rueda MD Work Phone: [facility] 07-05-2023 18:09-0500 Diastolic blood pressure 82 mm[Hg] Tray Rueda MD Work Phone: [facility] 07-05-2023 18:09-0500 Heart rate 79 /min Tray Rueda MD Work Phone: [facility] 07-05-2023 18:09-0500 Respiratory rate 21 /min Tray Rueda MD Work Phone: [facility] 07-05-2023 18:09-0500 SaO2% (BldA) [Mass fraction] 96 % Tray Rueda MD Work Phone: [facility] 07-05-2023 18:09-0500 Systolic blood pressure 124 mm[Hg] Tray Rueda MD Work Phone: [facility] 03-20-2023 13:35-0400 Body weight 92.53 kg Pacheco Kuhn MD Work Phone: [facility] 03-20-2023 13:35-0400 Diastolic blood pressure 62 mm[Hg] Pacheco Kuhn MD Work Phone: [facility] 03-20-2023 13:35-0400 Heart rate 61 /min Pacheco Kuhn MD Work Phone: [facility] 03-20-2023 13:35-0400 SaO2% (BldA) [Mass fraction] 95 % Pacheco Kuhn MD Work Phone: [facility] 03-20-2023 13:35-0400 Systolic blood pressure 100 mm[Hg] Pacheco Kuhn MD Work Phone: [facility] 10-06-2022 11:28-0500 Body temperature 97.7 [degF] Pacheco Kuhn MD Work Phone: [facility] 10-06-2022 11:28-0500 Body weight 92.08 kg Pacheco Kuhn MD Work Phone: [facility] 10-06-2022 11:28-0500 Diastolic blood pressure 62 mm[Hg] Pacheco Kuhn MD Work Phone: [facility] 10-06-2022 11:28-0500 Heart rate 58 /min Pacheco Kuhn MD Work Phone: [facility] 10-06-2022 11:28-0500 SaO2% (BldA) [Mass fraction] 96 % Pacheco Kuhn MD Work Phone: [facility] 10-06-2022 11:28-0500 Systolic blood pressure 112 mm[Hg] Pacheco Kuhn MD Work Phone: [facility] 09-19-2022 17:09-0500 Body height 177.8 cm Pacheco Kuhn MD Work Phone: [facility] 09-19-2022 17:09-0500 Body weight 96.16 kg Pacheco Kuhn MD Work Phone: [facility] 09-19-2022 17:09-0500 Diastolic blood pressure 76 mm[Hg] Pacheco Kuhn MD Work Phone: [facility] 09-19-2022 17:09-0500 Heart rate 64 /min Pacheco Kuhn MD Work Phone: [facility] 09-19-2022 17:09-0500 SaO2% (BldA) [Mass fraction] 96 % Pacheco Kuhn MD Work Phone: [facility] 09-19-2022 17:09-0500 Systolic blood pressure 106 mm[Hg] Pacheco Kuhn MD Work Phone: [facility] 08-05-2022 08:43-0500 Body height 177.8 cm Pacheco Kuhn MD Work Phone: [facility] 08-05-2022 08:43-0500 Body weight 92.99 kg Pacheco Kuhn MD Work Phone: [facility] 08-05-2022 08:43-0500 Diastolic blood pressure 76 mm[Hg] Pacheco Kuhn MD Work Phone: [facility] 08-05-2022 08:43-0500 Heart rate 73 /min Pacheco Kuhn MD Work Phone: [facility] 08-05-2022 08:43-0500 SaO2% (BldA) [Mass fraction] 97 % Pacheco Kuhn MD Work Phone: [facility] 08-05-2022 08:43-0500 Systolic blood pressure 106 mm[Hg] Pacheco Kuhn MD Work Phone: [facility] 07-30-2022 12:31-0500 Body temperature 97.7 [degF] Clarisse Praisler-Wood [employer] Work Phone: [facility] 07-30-2022 12:31-0500 Body weight 93.26 kg Clarisse Praisler-Wood [employer] Work Phone: [facility] 07-30-2022 12:31-0500 Diastolic blood pressure 78 mm[Hg] Clarisse Praisler-Wood [employer] Work Phone: [facility] 07-30-2022 12:31-0500 Heart rate 75 /min Clarisse Praisler-Wood [employer] Work Phone: [facility] 07-30-2022 12:31-0500 Respiratory rate 18 /min Clarisse Praisler-Wood [employer] Work Phone: [facility] 07-30-2022 12:31-0500 SaO2% (BldA) [Mass fraction] 98 % Clarisse Praisler-Wood [employer] Work Phone: [facility] 07-30-2022 12:31-0500 Systolic blood pressure 110 mm[Hg] Clarisse Praisler-Wood [employer] Work Phone: [facility] 07-27-2022 09:53-0500 Body weight 93.89 kg Yousif Franco MD Work Phone: [facility] 07-27-2022 09:53-0500 Diastolic blood pressure 70 mm[Hg] Yousif Franco MD Work Phone: [facility] 07-27-2022 09:53-0500 Heart rate 85 /min Yousif Franco MD Work Phone: [facility] 07-27-2022 09:53-0500 Respiratory rate 16 /min Yousif Franco MD Work Phone: [facility] 07-27-2022 09:53-0500 SaO2% (BldA) [Mass fraction] 98 % Yousif Franco MD Work Phone: [facility] 07-27-2022 09:53-0500 Systolic blood pressure 112 mm[Hg] Yousif Franco MD Work Phone: [facility] 05-03-2022 14:17-0400 Body height 177.8 cm Christopher James MD Work Phone: [facility] 05-03-2022 14:17-0400 Body temperature 97.9 [degF] Christopher James MD Work Phone: [facility] 05-03-2022 14:17-0400 Body weight 98.7 kg Christopher James MD Work Phone: [facility] 05-03-2022 14:17-0400 Diastolic blood pressure 82 mm[Hg] Christopher James MD Work Phone: [facility] 05-03-2022 14:17-0400 Heart rate 81 /min Christopher James MD Work Phone: [facility] 05-03-2022 14:17-0400 SaO2% (BldA) [Mass fraction] 98 % Christopher James MD Work Phone: [facility] 05-03-2022 14:17-0400 Systolic blood pressure 126 mm[Hg] Christopher James MD Work Phone: [facility] 05-02-2022 08:48-0400 Body weight 96.44 kg Josefina Podlogar [employer] Work Phone: [facility] 05-02-2022 08:48-0400 Diastolic blood pressure 86 mm[Hg] Josefina Podlogar [employer] Work Phone: [facility] 05-02-2022 08:48-0400 Heart rate 61 /min Josefina Podlogar [employer] Work Phone: [facility] 05-02-2022 08:48-0400 Respiratory rate 16 /min Josefina Podlogar [employer] Work Phone: [facility] 05-02-2022 08:48-0400 SaO2% (BldA) [Mass fraction] 96 % Josefina Podlogar [employer] Work Phone: [facility] 05-02-2022 08:48-0400 Systolic blood pressure 126 mm[Hg] Josefina Podlogar [employer] Work Phone: [facility] 02-07-2022 09:07-0400 Body weight 93.89 kg Josefina Podlogar [employer] Work Phone: [facility] 02-07-2022 09:07-0400 Diastolic blood pressure 80 mm[Hg] Josefina Podlogar [employer] Work Phone: [facility] 02-07-2022 09:07-0400 Heart rate 65 /min Josefina Podlogar [employer] Work Phone: [facility] 02-07-2022 09:07-0400 Respiratory rate 16 /min Josefina Podlogar [employer] Work Phone: [facility] 02-07-2022 09:07-0400 SaO2% (BldA) [Mass fraction] 97 % Josefina Podlogar [employer] Work Phone: [facility] 02-07-2022 09:07-0400 Systolic blood pressure 124 mm[Hg] Josefina Podlogar [employer] Work Phone: [facility] 11-15-2021 12:01-0400 Body temperature 97.11 [degF] Johanny Bogner PA-C Work Phone: [facility] 11-15-2021 12:01-0400 Body weight 97.07 kg Johanny Bogner PA-C Work Phone: [facility] 11-15-2021 12:01-0400 Diastolic blood pressure 70 mm[Hg] Johanny Bogner PA-C Work Phone: [facility] 11-15-2021 12:01-0400 Heart rate 76 /min Johanny Bogner PA-C Work Phone: [facility] 11-15-2021 12:01-0400 Respiratory rate 16 /min Johanny Bogner PA-C Work Phone: [facility] 11-15-2021 12:01-0400 SaO2% (BldA) [Mass fraction] 97 % Johanny Bogner PA-C Work Phone: [facility] 11-15-2021 12:01-0400 Systolic blood pressure 118 mm[Hg] Johanny Bogner PA-C Work Phone: [facility] Encounters Encounter Date Encounter Type Care Provider Facility Start: 08-17-2023 End: 08-18-2023 ambulatory PACHECO KUHN Facility:[facility] Start: 07-05-2023 End: 07-05-2023 ambulatory PACHECO KUHN Facility:[facility] Start: 07-05-2023 End: 07-05-2023 Patient encounter procedure Tray Rueda MD Work Phone: [facility] Procedures Date Procedure Procedure Detail Performing Clinician Start: 06-03-2023 PFIZER-BIONTECH COVI D-19 VACCINE ( SEASON) AGE 12+ YR Yousif Franco MD Work Phone: Start: 06-03-2023 INFLUENZA VACCINE, P RSV FREE, AGE 65+ YR, HIGH DOSE, QUADRIVALENT (FLUZONE HIGH-DOSE) Yousif Franco MD Work Phone: Start: 02-24-2023 Hemoglobin A1c/Hemoglobin.total in Blood [facility] Provider Start: 02-24-2023 Thyrotropin [Units/v olume] in Serum or Plasma [facility] Provider Start: 08-10-2022 Plethysmography lung volumes w/wo airway resist Pacheco Kuhn MD Work Phone: Start: 08-10-2022 Lipid 1996 panel - S jean paul or Plasma Immunization Laurie Work Phone: Start: 07-27-2022 End: 07-27-2022 Ecg routine ecg w/least 12 lds i&r only [facility] Provider Start: 05-02-2022 INFLUENZA SEASONAL QUADRIVALENT HIGH DOSE AGE 65+ Josefina Podlogar [employer] Work Phone: Start: 05-02-2022 PFIZER-BIONTECH COVI D-19 BIVALENT BOOSTER VACCINE, AGE 12+ YR Josefina Podlogar [employer]AD[employer] Work Phone: Start: 12-10-2020 Colonoscopy Johanny Holly PA-C Work Phone: Start: 12-07-2020 Adult depression scr eening assessment Johanny Holly PA-C Work Phone: Plan of Treatment Date Care Activity Detail Author Start: 12-16-2032 Urine microalbumin profile DTaP,Tdap,Td Vaccine (4 - Td or Tdap) [facility] Start: 08-10-2027 Lipid 1996 panel - Serum or Plasma Lipid Screening [facility] Start: 08-10-2027 LIPID SCREEN LIPID SCREEN [facility] Start: 07-16-2027 Urine microalbumin profile DTAP,TDAP,TD (3 - Td or Tdap) [facility] Start: 02-09-2027 PROSTATE CANCER SCREENING DISCUSSION PROSTATE CANCER SCREENING DISCUSSION [facility] Start: 02-07-2027 LIPID SCREEN LIPID SCREEN [facility] Start: 08-04-2026 LIPID SCREEN LIPID SCREEN [facility] Start: 03-20-2026 DIABETES SCREEN DIABETES SCREEN [facility] Start: 03-20-2026 Diabetes Screening Diabetes Screening [facility] Start: 02-24-2026 DIABETES SCREEN DIABETES SCREEN [facility] Start: 12-10-2025 Colonoscopy COLONOSCOPY [facility] Start: 12-10-2025 COLORECTAL CANCER SCREENING COLORECTAL CANCER SCREENING [facility] Start: 11-12-2025 PROSTATE CANCER SCREENING DISCUSSION PROSTATE CANCER SCREENING DISCUSSION [facility] Start: 08-10-2025 DIABETES SCREEN DIABETES SCREEN [facility] Start: 02-07-2025 DIABETES SCREEN DIABETES SCREEN [facility] Start: 08-04-2024 DIABETES SCREEN DIABETES SCREEN [facility] Start: 03-20-2024 ANNUAL PCP TEAM CHRONIC DISEASE VISIT ANNUAL PCP TEAM CHRONIC DISEASE VISIT [facility] Start: 08-10-2023 Hepatitis B surface antibody level LDL CHOLESTEROL [facility] Start: 03-31-2023 Influenza vaccination INFLUENZA (#1) [facility] Start: 03-20-2023 End: 05-20-2023 Comprehensive metabolic 2000 panel - Serum or Plasma [facility] Work Phone: Immunizations Immunization Date Immunization Notes Care Provider Fa cility 06-03-2023 COVID-19 vaccine, ag e 12+ yr, season ([employer]) Immunization Laurie Work Phone: [facility] 06-03-2023 influenza (HD-IIV4) vaccine, age 65+ yr, high dose, quadrivalent, PF (FLUZONE HIGH-DOSE) Immunization [place] Work Phone: [facility] 05-02-2022 COVID-19 booster vaccine, age 12+ yr, bivalent (PFIZER-BIONTECH) Josefina Podlogar [employer] Work Phone: [facility] 05-02-2022 influenza, high-dose , quadrivalent vaccine (FLUZONE HIGH DOSE QUADRIVALENT) Josefina Podlogar [employer] Work Phone: [facility] 05-02-2022 pneumococcal (PCV20) vaccine, 20 valent (PREVNAR 20) Josefina Podlogar [employer] Work Phone: [facility] 05-02-2022 pneumococcal Conjugate, unspecified formulation Josefina Podlogar [employer] Work Phone: [facility] Work Phone: 08-06-2021 influenza, high-dose , quadrivalent vaccine (FLUZONE HIGH DOSE QUADRIVALENT) Johanny Holly PA-C Work Phone: [facility] 10-30-2020 COVID-19 vaccine, ag e 12+ yr (PFIZER-BIONTECH - PURPLE TOP) Johanny Bogner PA-C Work Phone: [facility] 10-09-2020 COVID-19 vaccine, ag e 12+ yr (PFIZER-BIONTECH - PURPLE TOP) Johanny Bogner PA-C Work Phone: [facility] 07-01-2019 hepatitis A and hepatitis B vaccine Johanny Bogner PA-C Work Phone: [facility] Work Phone: 07-01-2019 zoster vaccine recombinant Johanny Bogner PA-C Work Phone: [facility] Work Phone: 02-08-2019 zoster vaccine recombinant Johanny Bogner PA-C Work Phone: [facility] Work Phone: 01-28-2019 hepatitis A and hepatitis B vaccine Johanny Bogner PA-C Work Phone: [facility] Work Phone: 12-26-2018 hepatitis A and hepatitis B vaccine Johanny Bogner PA-C Work Phone: [facility] Work Phone: 05-09-2018 influenza, injectable, quadrivalent, contains preservative Johanny Bogner PA-C Work Phone: [facility] 07-16-2017 tetanus toxoid, reduced diphtheria toxoid, and acellular pertussis vaccine, adsorbed Johanny Bogner PA-C Work Phone: [facility] 04-24-2015 influenza, seasonal, injectable Johanny Bogner PA-C Work Phone: [facility] 08-27-2013 influenza virus vaccine, unspecified formulation Johanny Bogner PA-C Work Phone: [facility] 08-30-2010 influenza virus vaccine, unspecified formulation Johanny Bogner PA-C Work Phone: [facility] 04-27-2009 influenza virus vaccine, unspecified formulation Johanny Bogner PA-C Work Phone: [facility] Work Phone: 03-20-2009 tetanus toxoid, reduced diphtheria toxoid, and acellular pertussis vaccine, adsorbed Johanny Bogner PA-C Work Phone: [facility] 07-20-2005 influenza virus vaccine, unspecified formulation Johanny Bogner PA-C Work Phone: [facility] Payers Date Payer Category Payer Medicare [id number] 2020 Medicare UHC MEDICARE UHC MEDICARE ADVANTAGE PPO [id number] 2020-Present [phone] [address] [address] [place] [address] PPO [id number] 2020 Medicare [id number] Social History Date Type Detail Facility Start: 10-02-2015 End: 05-02-2022 Tobacco smoking status NHIS Never smoked tobacco [facility] Work Phone: Start: 11-15-2021 End: 07-05-2023 Alcohol intake Current drinker of alcohol (finding) [facility] Start: 1955 Sex Assigned At Male [facility] Start: 11-05-2021 End: 05-03-2022 Exposure to SARS-CoV-2 (event) Not sure [facility] Work Phone: Start: 10-02-2015 End: 05-02-2022 Tobacco use and exposure Smokeless tobacco non-user [facility] Start: 04-28-2022 History SDOH Alcohol Frequency 4 [facility] Start: 04-28-2022 End: 07-22-2022 History SDOH Alcohol Std Drinks 1 [facility] Start: 04-28-2022 End: 07-22-2022 History SDOH Social Connections Phone 5 [facility] Start: 04-28-2022 End: 07-22-2022 History SDOH Social Connections Meetings 3 [facility] Start: 04-28-2022 End: 07-22-2022 History SDOH Physical Activity DPW 0 [facility] Start: 04-28-2022 End: 07-22-2022 History SDOH Stress 2 [facility] Start: 07-22-2022 End: 03-20-2023 History of Social function [facility] Start: 07-22-2022 End: 03-20-2023 Social connection and isolation panel [facility] Do you belong to any clubs or organizations such as adventist groups, unions, fraternal or athletic groups, or school groups? Yes [facility] Are you now , , , , never or living with a partner? [facility] How often to you hav e a drink containing alcohol? 2-4 times a month [facility] How many standard dr inks containing alcohol do you have on a typical day? 1 or 2 [facility] How often do you hav e 6 or more drinks on 1 occasion? Never [facility] How hard is it for y ou to pay for the very basics like food, housing, medical care, and heating Not hard at all [facility] Do you feel stress - tense, restless, nervous, or anxious, or unable to sleep at night because your mind is troubled all the time - these days [OSQ] Only a little [facility] (I/We) worried wheth er (my/our) food would run out before (I/we) got money to buy more. Never true [facility] In the past 12 month s, was there a time when you were not able to pay the mortgage or rent on time? No [facility] Start: 11-16-2020 Gender identity Identifies as male gender (finding) [facility] Start: 11-16-2020 Sexual orientation Heterosexual (finding) [facility] Clinical Notes 10-28-2015 to 07-05-2023 Patient InstructionsMcTray White MD - 07/05/2023 6:18 PM ESTTelephone Encounter - Rai Dennyie - 07/03/2023 10:21 AM ESTAddendum Note - Diana Chong RN - 06/03/2023 10:22 AM EDT Note Date & Type Note Facility 07-05-2023 Note HNO ID: [id number] Author: Tray Rueda MD Service: ? Author Type: Physician Type: Progress Notes Filed: 07/05/2023 6:51 PM Note Text: Patient presents with: Fever: Drainage, stomach ache, CORONEL x 3 days HPI: Feeling sick starting 2 days ago. He just flew back, friend he was with was sick. Home COVID test positive today. Positive symptoms: Cough, Shortness of breath, Wheezing, Sore throat, Earache, Sinus pressure, Nasal Congestion, Rhinorrhea, Fever, Chills, Body Aches, Malaise, Fatigue, Headache, flatulance, Negative symptoms: Chest pain, Vomiting, OTC: Nyquil, Dayquil Had NSTEMI and stent Jun 2022. PAST MEDICAL HISTORY Diagnosis Date Arthritis Benign neoplasm of rectum and anal canal Seeing Dr. Falcon CAD (coronary artery disease) 70% LAD s/p PCI and stent x1, Dr. Bower Enthesopathy of hip region Esophageal reflux Generalized anxiety disorder High cholesterol Hypogonadism in male Internal hemorrhoids without mention of complication Neuroma LEFT FOOT NSTEMI (non-ST elevated myocardial infarction) (HCC) Other and unspecified hyperlipidemia Umbilical hernia without mention of obstruction or gangrene Varicose veins Vitamin D insufficiency PAST SURGICAL HISTORY Procedure Laterality Date ARTHROSCOPY KNEE DIAGNOSTIC W/WO SYNOVIAL BX SPX Arthroscopy, knee, BILAT COLONOSCOPY FLX DX W/COLLJ SPEC WHEN PFRMD 12/10/2020 COLONOSCOPY W/BIOPSY SINGLE/MULTIPLE 11/05/2010 ESOPHAGOGASTRODUODENOSCOPY TRANSORAL DIAGNOSTIC 11/17/2000 EGD ESOPHAGOGASTRODUODENOSCOPY TRANSORAL DIAGNOSTIC 09/06/2005 EGD ESOPHAGOGASTRODUODENOSCOPY TRANSORAL DIAGNOSTIC 12/10/2020 EXCISION NEUROMA, DIGIT NERVE EACH ADDL 06/2009 Bilateral feet EYE SURGERY HX FRACTURE SURGERY HEMORRHOID SURGERY HX [id number] [facility] HERNIA REPAIR HX PAST SURGICAL HISTORY OF 06/2002 left wrist and left elbow PAST SURGICAL HISTORY OF 05/2009 Varicose vein stripping PAST SURGICAL HISTORY OF 02/22/2019 left foot fracture/dislocation repair. Dr. Kirk PAST SURGICAL HISTORY OF Left 07/2019 Removal of screw from left ankle with placement of Tightrope implant. RPR UMBILICAL HRNA 5 YRS/> REDUCIBLE 04/03/2009 SKIN BIOPSY HX TONSILLECTOMY HX TONSILLECTOMY PRIMARY/SECONDARY Tonsillectomy MEDICATIONS: Current Outpatient Medications Medication Sig famotidine (PEPCID) 20 mg tablet Take 1 tablet by mouth daily at bedtime. melatonin 10 mg tab Take 10 mg by mouth daily at bedtime. esomeprazole (NEXIUM) 40 mg capsule Take 1 capsule by mouth once daily. tamsulosin (FLOMAX) 0.4 mg Take 1 capsule by mouth daily at bedtime. clopidogrel (PLAVIX) 75 mg tablet Take 75 mg by mouth once daily. losartan (COZAAR) 25 mg tablet Take 25 mg by mouth once daily. nitroglycerin sublingual (NITROQUICK) 0.4 mg SL tablet DISSOLVE 1 TABLET UNDER THE TONGUE NEEDED FOR CHEST PAIN- MAY REPEAT EVERY 5 MINUTES IF NEEDED ( MAX 3 DOSES.- IF NO RELIEF CALL 911) aspirin, enteric coated (ASPIRIN, ENTERIC COATED) 81 mg EC tablet Take 81 mg by mouth daily with breakfast. metoprolol succinate ER (TOPROL XL) 25 mg 24 hr tablet Take 25 mg by mouth once daily. diclofenac (VOLTAREN) 1 % topical gel Apply 2 g to affected area twice daily as needed. rosuvastatin (CRESTOR) 20 mg tablet Take 1 tablet by mouth daily at bedtime. ferrous sulfate 325 mg (65 mg iron) tablet Take 1 tablet by mouth twice daily with meals. (Patient taking differently: Take 325 mg by mouth once daily.) COMPOUNDED PRESCRIPTION [facility] Push Brace to be used daily as directed. Compression Knee Highs KNEE HIGH COMPRESSION STOCKINGS 20-30 MM. DX: EDEMA, varicose veins oszhbaft-smt-RO-lycopen-lutein (CENTRUM SILVER MEN) 300-600-300 mcg tab Take 1 tablet by mouth once daily. No current facility-administered medications for this visit. ALLERGIES: ALLERGIES Allergen Reactions Baycol [Other] Intolerance leg cramps Environmental Aller* Cockroaches, trees, weeds Erythromycin Intolerance GI upset Lipitor [Atorvastat* Intolerance leg pain,weakness Niaspan [Niacin] Hives Penicillins Hives hives VITALS: BP 124/82 Pulse 79 Temp (!) 38.1 ?C (100.5 ?F) Resp 21 Wt 93.7 kg (206 lb 9.6 oz) SpO2 96% BMI 29.64 kg/m? PHYSICAL EXAM: GEN: mildly ill appearing HEENT: PERRL, EOMI, conjunctiva injected Ears: canals clear. TMs without erythema, bulge, or effusion Sinuses: non-tender frontal sinus, non-tender maxillary sinuses Neck: supple, no thyromegaly, no lymphadenopathy HEART: regular rate and rhythm, no murmurs LUNGS: clear to auscultation, no wheezes or crackles, no increased WOB Molnupiravir Eligibility and Patient Discussion [facility] Formulary Restriction Criteria: Adult outpatients 18 years and older with ALL of the following: [x] Patient has symptoms for 5 days or less [x] Not requiring hospitalization at any time for management of COVID-19 [x] Not requiring supplemental oxygen or a change (more content not included)... [facility] 07-05-2023 Instructions Tray Rueda MD - 07/05/2023 6:24 PM EST Fact Sheet for Patients And Caregivers Emergency Use Authorization (EUA) Of LAGEVRIO (molnupiravir) capsules For Coronavirus Disease 2019 (COVID-19) What is the most important information I should know about LAGEVRIO? LAGEVRIO may cause serious side effects, including: LAGEVRIO may cause harm to your unborn baby. It is not known if LAGEVRIO will harm your baby if you take LAGEVRIO during . LAGEVRIO is not recommended for use in . LAGEVRIO has not been studied in . LAGEVRIO was studied in animals only. When LAGEVRIO was given to animals, LAGEVRIO caused harm to their unborn babies. You and your healthcare provider may decide that you should take LAGEVRIO during if there are no other COVID-19 treatment options approved or authorized by the FDA that are accessible or clinically appropriate for you. If you and your healthcare provider decide that you should take LAGEVRIO during , you and your healthcare provider should discuss the known and potential benefits and the potential risks of taking LAGEVRIO during . For individuals who are able to become : You should use a reliable method of control (contraception) consistently and correctly during treatment with LAGEVRIO and for 4 days after the last dose of LAGEVRIO. Talk to your healthcare provider about reliable control methods. Before starting treatment with LAGEVRIO your healthcare provider may do a test to see if you are before starting treatment with LAGEVRIO. Tell your healthcare provider right away if you become or think you may be during treatment with LAGEVRIO. Registry: There is a registry for individuals who take LAGEVRIO during . The purpose of this program is to collect information about the health of you and your baby. If you are or become during treatment with LAGEVRIO, you are encouraged to report your use of LAGEVRIO during to this registry at https://[email or web address].[email or web address].PasswordBox or . For individuals who are sexually active with partners who are able to become : It is not known if LAGEVRIO can affect sperm. While the risk is regarded as low, animal studies to fully assess the potential for LAGEVRIO to affect the babies of males treated with LAGEVRIO have not been completed. A reliable method of control (contraception) should be used consistently and correctly during treatment with LAGEVRIO and for at least 3 months after the last dose. The risk to sperm beyond 3 months is not known. Studies to understand the risk to sperm beyond 3 months are ongoing. Talk to your healthcare provider about reliable control methods. Talk to your healthcare provider if you have questions or concerns about how LAGEVRIO may affect sperm. You are being given this fact sheet because your healthcare provider believes it is necessary to provide you with LAGEVRIO for the treatment of adults with a current diagnosis of mild-tomoderate coronavirus disease 2019 (COVID-19) who are at high risk for progression to severe COVID-19, including hospitalization or , and for whom other COVID-19 treatment options approved or authorized by the FDA are not accessible or clinically appropriate. The [place]. Food and Drug Administration (FDA) has issued an Emergency Use Authorization (EUA) to make LAGEVRIO available during the COVID-19 pandemic (for more details about an EUA please see What is an Emergency Use Authorization? at the end of this document). LAGEVRIO is not an FDA-approved medicine in the [place]. Read this Fact Sheet for information about LAGEVRIO. Talk to your healthcare provider about your options if you have any questions. It is your choice to take LAGEVRIO. What is COVID-19? COVID-19 is caused by a virus called a coronavirus. You can get COVID-19 through close contact with another person who has the virus. COVID-19 illnesses have ranged from very kisd-zo-juabzg, including illness resulting in . While information so far suggests that most COVID-19 illness is mild, serious illness can happen and may cause some of your other medical conditions to become worse. Older people and people of all ages with severe, long lasting (chronic) medical conditions like heart disease, lung disease and diabetes, for example seem to be at higher risk of being hospitalized for COVID-19. What is LAGEVRIO? LAGEVRIO is an investigational medicine used to treat adults with a current diagnosis of mild to moderate COVID-19: who are at high risk for progression to severe COVID-19 including hospitalization or , and for whom other COVID-19 treatment options approved or authorized by the FDA are not accessible or clinically appropriate. The FDA has authorized the emergency use of LAGEVRIO for the treatment of mild-tomoderate COVID-19 in adults under an EUA. For more information on EUA, see the What is an Emergency Use Authorization (EUA)? section at the end of this Fact Sheet. LAGEVRIO is not authorized: for use in people less than 18 years of age. for prevention of COVID-19. for people needing hospitalization for COVID-19. for use for longer than 5 consecutive days. What should I tell my healthcare provider before I take LAGEVRIO? Tell your healthcare provider if you: have any allergies are or plan to breastfeed have any serious illnesses Take any medicines including prescription, yeqg-vff-xtqufcz medicines, vitamins, and herbal products. How do I take LAGEVRIO? Take LAGEVRIO exactly as your healthcare provider tells you to take it. Take 4 capsules of LAGEVRIO every 12 hours (for example, at 8 am and at 8 pm) Take LAGEVRIO for 5 days. It is important that you complete the full 5 days of treatment with LAGEVRIO. Do not stop taking LAGEVRIO before you complete the full 5 days of treatment, even if you feel better. Take LAGEVRIO with or without food. You should stay in isolation for as long as your healthcare provider tells you to. Talk to your healthcare provider if you are not sure about how to properly isolate while you have COVID-19. Swallow LAGEVRIO capsules whole. Do not open, break, or crush the capsules. If you cannot swallow capsules whole, tell your healthcare provider. If your healthcare provider prescribes LAGEVRIO and tells you to take or give a dose through a nasogastric (NG) or orogastric (OG) tube, follow the instructions below: How to take or give a dose of LAGEVRIO through a nasogastric (NG) or orogastric (OG) feeding tube. You must have an NG or OG that is size 12 Korean (FR) or larger. If you miss a dose of LAGEVRIO: If it has been less than 10 hours since the missed dose, take it as soon as you remember. If it has been more than 10 hours since the missed dose, skip the missed dose and take your dose at the next scheduled time. Do not double the dose of LAGEVRIO to make up for a missed dose. How to take or give a dose of LAGEVRIO through a nasogastric (NG) or orogastric (OG) feeding tube: Wash your hands well with soap and water. Gather the supplies you will need to take or give the prescribed dose of LAGEVRIO. 4 LAGEVRIO capsules 1 liquid measuring cup with mL markings to measure 40 mL of room temperature water 1 clean container with a lid 1 catheter tip syringe. Your healthcare provider should tell you what size catheter tip syringe you will need to take or give a dose of LAGEVRIO. Place the needed supplies on a clean work surface. Follow your healthcare provider s instructions on how to flush the NG or OG feeding tube. Flush the NG or OG feeding tube with 5 mL of water before taking or giving a dose of LAGEVRIO. Carefully open 4 LAGEVRIO capsules, one at a time, and empty the contents into a clean container. Use the liquid measuring cup to measure 40 mL of room temperature water and add to the container containing the capsule contents. Place the lid on the container. Shake to mix the capsule contents and water well for 3 minutes. The capsule contents may not dissolve completely. Remove the lid from the container and draw up all the LAGEVRIO and water mixture into a catheter tip syringe. Give all of the mixture right away through the NG or OG feeding tube. Do not keep the mixture for future use. If any capsule contents are left in the container: Add 10 mL of water to the container, and mix to loosen any capsule contents that are left in the container. Use the catheter tip syringe to draw up all of the mixture in the container. Give the mixture through the NG or OG feeding tube. Repeat this process as needed until you no longer see any capsule contents left in the container or catheter tip syringe. Use the same catheter tip syringe to flush the NG or OG feeding tube 2 times with 5 mL of water (10mL total). Rinse the container, lid and catheter tip syringe well with clean water after use. Place on a clean paper towel until next use. What are the important possible side effects of LAGEVRIO? See, What is the most important information I should know about LAGEVRIO? Allergic Reactions. Allergic reactions can happen in people taking LAGEVRIO, even after only 1 dose. Stop taking LAGEVRIO and call your healthcare provider right away if you get any of the following symptoms of an allergic reaction: hives rapid heartbeat trouble swallowing or breathing swelling of the mouth, lips, or face throat tightness hoarseness skin rash The most common side effects of LAGEVRIO are: diarrhea nausea dizziness These are not all the possible side effects of LAGEVRIO. Not many people have taken LAGEVRIO. Serious and unexpected side effects may happen. This medicine is still being studied, so it is possible that all of the risks are not known at this time. What other treatment choices are there? Veklury (remdesivir) is FDA-approved as an intravenous (IV) infusion for the treatment of mildto-moderate COVID-19 in certain adults and children. Talk with your doctor to see if Veklury is appropriate for you. Like LAGEVRIO, FDA may also allow for the emergency use of other medicines to treat people with COVID-19. Go to https://www.fda.gov/emergency-pre cyuhyvrmz-exh-sshclmpy/mcm-legalr ejfuosvxv-hpj-xqutzp-framework/em uglqcjd-wpi-fbykoaofrrfom for more information. It is your choice to be treated or not to be treated with LAGEVRIO. Should you decide not to take it, it will not change your standard medical care. What if I am ? is not recommended during treatment with LAGEVRIO and for 4 days after the last dose of LAGEVRIO. If you are or plan to breastfeed, talk to your healthcare provider about your options and specific situation before taking LAGEVRIO. How do I report side effects with LAGEVRIO? Contact your healthcare provider if you have any side effects that bother you or do not go away. Report side effects to FDA MedWatch at www.fda.gov/medwatch or call 1-800-fda-1088 (1115.661.4209). How should I store LAGEVRIO? Store LAGEVRIO capsules at room temperature between 68 F to 77 F (20 C to 25 C). Keep LAGEVRIO and all medicines out of the reach of children. How can I learn more about COVID-19? Ask your healthcare provider. Visit www.cdc.gov/COVID19 Contact your local or state public health department. Call [employer] at (toll free in the [place] Visit www.[employer].PasswordBox What Is an Emergency Use Authorization (EUA)? The [place] FDA has made LAGEVRIO available under an emergency access mechanism called an Emergency Use Authorization (EUA) The EUA is supported by a Outside Plant Field Engineer of Health and Human Service (HHS) declaration that circumstances exist to justify emergency use of drugs and biological products during the COVID-19 pandemic. LAGEVRIO for the treatment of adults with a current diagnosis of zfav-af-mrpulzue COVID-19 who are at high risk for progression to severe COVID-19, including hospitalization or , and for whom alternative COVID-19 treatment options approved or authorized by FDA are not accessible or clinically appropriate, has not undergone the same type of review as an FDAapproved product. In issuing an EUA under the COVID-19 public health emergency, the FDA has determined, among other things, that based on the total amount of scientific evidence available including data from adequate and well-controlled clinical trials, if available, it is reasonable to believe that the product may be effective for diagnosing, treating, or preventing COVID-19, or a serious or life-threatening disease or condition caused by COVID-19; that the known and potential benefits of the product, when used to diagnose, treat, or prevent such disease or condition, outweigh the known and potential risks of such product; and that there are no adequate, approved, and available alternatives. All of these criteria must be met to allow for the product to be used in the treatment of patients during the COVID-19 pandemic. The EUA for LAGEVRIO is in effect for the duration of the COVID-19 declaration justifying emergency use of LAGEVRIO, unless terminated or revoked (after which LAGEVRIO may no longer be used under the EUA). Leila. for: [employer] [address] For patent information: www.[employer]/research/patent Copyright [employer] [facility] and its affiliates. All rights reserved. [id number] Revised: August 2022 documented in this encounter [facility] 07-05-2023 History of Present illness Narrative Patient presents with: Fever: Drainage, stomach ache, CORONEL x 3 days HPI: Feeling sick starting 2 days ago. He just flew back, friend he was with was sick. Home COVID test positive today. Positive symptoms: Cough, Shortness of breath, Wheezing, Sore throat, Earache, Sinus pressure, Nasal Congestion, Rhinorrhea, Fever, Chills, Body Aches, Malaise, Fatigue, Headache, flatulance, Negative symptoms: Chest pain, Vomiting, OTC: Nyquil, Dayquil Had NSTEMI and stent Jun 2022. PAST MEDICAL HISTORY Diagnosis Date Arthritis Benign neoplasm of rectum and anal canal Seeing Dr. Falcon CAD (coronary artery disease) 70% LAD s/p PCI and stent x1, Dr. Bower Enthesopathy of hip region Esophageal reflux Generalized anxiety disorder High cholesterol Hypogonadism in male Internal hemorrhoids without mention of complication Neuroma LEFT FOOT NSTEMI (non-ST elevated myocardial infarction) (HCC) Other and unspecified hyperlipidemia Umbilical hernia without mention of obstruction or gangrene Varicose veins Vitamin D insufficiency PAST SURGICAL HISTORY Procedure Laterality Date ARTHROSCOPY KNEE DIAGNOSTIC W/WO SYNOVIAL BX SPX Arthroscopy, knee, BILAT COLONOSCOPY FLX DX W/COLLJ SPEC WHEN PFRMD 12/10/2020 COLONOSCOPY W/BIOPSY SINGLE/MULTIPLE 11/05/2010 ESOPHAGOGASTRODUODENOSCOPY TRANSORAL DIAGNOSTIC 11/17/2000 EGD ESOPHAGOGASTRODUODENOSCOPY TRANSORAL DIAGNOSTIC 09/06/2005 EGD ESOPHAGOGASTRODUODENOSCOPY TRANSORAL DIAGNOSTIC 12/10/2020 EXCISION NEUROMA, DIGIT NERVE EACH ADDL 06/2009 Bilateral feet EYE SURGERY HX FRACTURE SURGERY HEMORRHOID SURGERY HX [id number] [facility] HERNIA REPAIR HX PAST SURGICAL HISTORY OF 06/2002 left wrist and left elbow PAST SURGICAL HISTORY OF 05/2009 Varicose vein stripping PAST SURGICAL HISTORY OF 02/22/2019 left foot fracture/dislocation repair. Dr. Kirk PAST SURGICAL HISTORY OF Left 07/2019 Removal of screw from left ankle with placement of Tightrope implant. RPR UMBILICAL HRNA 5 YRS/> REDUCIBLE 04/03/2009 SKIN BIOPSY HX TONSILLECTOMY HX TONSILLECTOMY PRIMARY/SECONDARY <AGE 12 Tonsillectomy MEDICATIONS: Current Outpatient Medications Medication Sig famotidine (PEPCID) 20 mg tablet Take 1 tablet by mouth daily at bedtime. melatonin 10 mg tab Take 10 mg by mouth daily at bedtime. esomeprazole (NEXIUM) 40 mg capsule Take 1 capsule by mouth once daily. tamsulosin (FLOMAX) 0.4 mg Take 1 capsule by mouth daily at bedtime. clopidogrel (PLAVIX) 75 mg tablet Take 75 mg by mouth once daily. losartan (COZAAR) 25 mg tablet Take 25 mg by mouth once daily. nitroglycerin sublingual (NITROQUICK) 0.4 mg SL tablet DISSOLVE 1 TABLET UNDER THE TONGUE NEEDED FOR CHEST PAIN- MAY REPEAT EVERY 5 MINUTES IF NEEDED ( MAX 3 DOSES.- IF NO RELIEF CALL 911) aspirin, enteric coated (ASPIRIN, ENTERIC COATED) 81 mg EC tablet Take 81 mg by mouth daily with breakfast. metoprolol succinate ER (TOPROL XL) 25 mg 24 hr tablet Take 25 mg by mouth once daily. diclofenac (VOLTAREN) 1 % topical gel Apply 2 g to affected area twice daily as needed. rosuvastatin (CRESTOR) 20 mg tablet Take 1 tablet by mouth daily at bedtime. ferrous sulfate 325 mg (65 mg iron) tablet Take 1 tablet by mouth twice daily with meals. (Patient taking differently: Take 325 mg by mouth once daily.) COMPOUNDED PRESCRIPTION CMC Push Brace to be used daily as directed. Compression Knee Highs KNEE HIGH COMPRESSION STOCKINGS 20-30 MM. DX: EDEMA, varicose veins bfeswwsk-sck-RU-lycopen-lutein (CENTRUM SILVER MEN) 300-600-300 mcg tab Take 1 tablet by mouth once daily. No current facility-administered medications for this visit. ALLERGIES: ALLERGIES Allergen Reactions Baycol [Other] Intolerance leg cramps Environmental Aller* Cockroaches, trees, weeds Erythromycin Intolerance GI upset Lipitor [Atorvastat* Intolerance leg pain,weakness Niaspan [Niacin] Hives Penicillins Hives hives VITALS: BP 124/82 Pulse 79 Temp (!) 38.1 C (100.5 F) Resp 21 Wt 93.7 kg (206 lb 9.6 oz) SpO2 96% BMI 29.64 kg/m PHYSICAL EXAM: GEN: mildly ill appearing HEENT: PERRL, EOMI, conjunctiva injected Ears: canals clear. TMs without erythema, bulge, or effusion Sinuses: non-tender frontal sinus, non-tender maxillary sinuses Neck: supple, no thyromegaly, no lymphadenopathy HEART: regular rate and rhythm, no murmurs LUNGS: clear to auscultation, no wheezes or crackles, no increased WOB Molnupiravir Eligibility and Patient Discussion [facility] Formulary Restriction Criteria: Adult outpatients 18 years and older with ALL of the following: [x] Patient has symptoms for 5 days or less [x] Not requiring hospitalization at any time for management of COVID-19 [x] Not requiring supplemental oxygen or a change in baseline supplemental oxygen [x] Not utilized for pre-exposure or post-exposure prophylaxis for prevention of COVID-19 [x] Patient is not or lactating [x] Meeting at least one of the criteria for high risk of progression to severe COVID-19: [x] Age over 65 years [] Cancer [] Chronic kidney disease [] Chronic liver disease [] Chronic lung diseases, including cystic fibrosis [] Dementia or other neurological conditions [] Diabetes (type 1 or type 2) [] Disabilities, including Down syndrome and neurodevelopmental disorders [x] Heart conditions [] HIV infection [] Immunocompromised state [] Mental health conditions [] Medical related technological dependence (tracheostomy, gastrostomy, or positive pressure ventilation (not related to COVID) [] Overweight and obesity (BMI greater or equal to 25 for adults) [] Physical inactivity [] Sickle cell disease or thalassemia [] Smoking, current or former [] Solid organ or blood stem cell transplant [] Stroke or cerebrovascular disease [] Substance use disorders [] Tuberculosis [] People from racial and ethnic minority groups Criteria above are met: Yes Date of Symptom Onset: 07/03/2023 Patient received COVID vaccine: Yes / status reviewed: Females: [] Patient is not currently and there is no possibility the patient could be (select one of the following): [] test does not need to be confirmed in patients who have undergone permanent sterilization, are currently using an intrauterine system or contraceptive implant, or in whom is not possible. [] Patients not meeting conditions above: assess whether the patient is based on the first day of the last menstrual period in individuals who have regular menstrual cycles, is using reliable method of contraception correctly and consistently or have had a negative test [] A test is recommended if the individual has irregular menstrual cycles, is unsure of the first day of the last menstrual period or is not using effective contraception correctly and consistently [] Patient is not currently . is not recommended during treatment and for four days after final dose of molnupiravir. [] Females have been advised to use a reliable method of contraception correctly and consistently for the duration of treatment and for four days after the last dose of molnupiravir Males: [x] Sexually active male with partner(s) of childbearing potential has been advised to use a reliable method of contraception correctly and consistently for intercourse for the duration of treatment and for three months after the last dose of molnupiravir I have discussed the use of the investigational therapeutic, molnupiravir, for the treatment of mild to moderate COVID-19 and its use under Emergency Use Authorization with the patient. The patient was informed that molnupiravir is not an FDA approved drug and that it is authorized for use under this Emergency Use Authorization. The patient was also informed of the significant known benefits and potential risks of molnupiravir, and the extent to which such potential risks and benefits are unknown. The patient was informed that there is mandatory reporting of all medication errors and serious adverse events potentially related to molnupiravir treatment within 7 calendar days from the onset of the event and that events up to 28 days after completion of therapy need to be reported. The discussion included alternatives to receiving molnupiravir, including clinical trials, and potential the risks and benefits of those alternatives. The patient was provided electronically with the Fact Sheet for Patients, Parents and Caregivers . The patient was also instructed that in addition to the treatment with molnupiravir, he/she should continue to self-isolate and use infection control measures (e.g., wear mask, isolate, social distance, avoid sharing personal items, clean and disinfect high touch surfaces, and frequent handwashing) according to CDC guidelines. The patient stated understanding and gave verbal consent to proceeding with molnupiravir treatment. Tray Rueda MD July 05, 2023 6:27 PM ASSESSMENT/PLAN: 1. Acute COVID-19 - ICD9: 079.89, ICD10: U07.1 (primary diagnosis) 2. Coronary artery disease involving [place] heart without angina pectoris, unspecified vessel or lesion type - ICD9: 414.01, ICD10: I25.10 Home COVID test was positive. Stay home for 5 days from symptom onset. After 5 days, you can leave your house if you have not had a fever in the last 24 hours. Continue to wear a mask around others for 5 additional days. If you have a fever, continue to stay home until your fever resolves. Treat with supportive care such as cough medicine, cold medicine, and pain relievers. Paxlovid interacts with plavix and flomax. - MOLNUPIRAVIR 200 MG CAPSULE (EUA) - BENZONATATE 100 MG CAPSULE - Red flags to seek further treatment include chest pain, shortness of breath, and lethargy; in the ER if severe. Tray Rueda MD documented in this encounter [facility] 07-03-2023 Miscellaneous Notes Patient phones requesting refills as follows: Requested Prescriptions Pending Prescriptions Disp Refills famotidine (PEPCID) 20 mg tablet 30 tablet 5 Sig: Take 1 tablet by mouth daily at bedtime. *Pt requesting rx for 90 day supply. Please review and advise. Ramiro Denny documented in this encounter [facility] 06-03-2023 Miscellaneous Notes Addended by: DIANA CHONG on: 06/03/2023 10:22 AM Modules accepted: Orders Addended by: RADHA BOND on: 06/03/2023 09:20 AM Modules accepted: Orders documented in this encounter [facility] 03-24-2023 Miscellaneous Notes Pt called and is notified of providers message and instructions. Pt voices understanding. Faxed last OV note, demo sheet, x-ray results, and orders to [facility] [employer] fax # [phone]. Diana Chong RN Lets do therapy first Talked to patient and he wants to know what you prefer him to do PT or Ortho? Xray shows some arthritis in his knee. We could have him try physical therapy or see ortho. Have any preferences. documented in this encounter [facility] 03-20-2023 Note HNO ID: [id number] Author: Tamela Cheung RT(R) Service: Radiology Author Type: Technologist Type: Progress Notes Filed: 03/20/2023 2:37 PM Note Text: Radiology Service Progress Note PATIENT NAME: Ketan Cordero DATE OF SERVICE: March 20, 2023 TIME: 2:23 PM PATIENT IDENTITY VERIFICATION COMPLETED USING TWO (2) IDENTIFIERS: Name and Date of confirmed by patient verbally. FALL SCREENING: Has the patient had 2 falls in the last year or 1 fall with injury or currently using an Ambulatory Assistive Device (Walker, Cane, Wheelchair, Crutches, etc.)? No PATIENT GENDER DATA: Male PATIENT RELEVANT IMPLANT DATA REVIEWED: Not Applicable RADIOLOGY DEPARTMENT: General X-ray: Exam(s) Completed: Lower Extremity X-Ray(s): Knee, AP / Lat / Tunne / Merchant Left and Wt. Bearing PERIPHERAL IV DATA: Not applicable SIGNED BY: RT Romina(R) March 20, 2023 2:23 PM [facility] 03-20-2023 Note HNO ID: [id number] Author: Pacheco Kuhn MD Service: ? Author Type: Physician Type: Progress Notes Filed: 03/20/2023 4:26 PM Note Text: Patient presents with: 6 Month Exam Derm Problem Pain HPI: Patient presents today for office visit for follow up. Derm problem: Some places with itching that needs to have checking. Pain in left knee and bilateral feet would like to discuss today. Has been following closely with [facility]. No chest pain or shortness of breath. No edema. No palpitations. Has been having some hyperhidrosis. Has been there for some years. Has family members who are the same. Had thyroid checked recently. He is not taking his testosterone which might contribute. It is all the time. Concentration can cause it. No flushing. Has been having some toe pain. Has been on feet. No redness. Some swelling. No trauma. He sees Dr Kirk. Recommended he follow with him. Has areas on his skin that he picks at. Has a scaly skin that currently has some scabs from picking. Discussed leaving it alone. Offered derm. Has had issues with his left knee going up and down steps. Feels like wants to give out. No edema. No redness or warmth. No issues. MEDICATIONS: Current Outpatient Medications Medication Sig melatonin 10 mg tab Take 10 mg by mouth daily at bedtime. famotidine (PEPCID) 20 mg tablet Take 1 tablet by mouth daily at bedtime. esomeprazole (NEXIUM) 40 mg capsule Take 1 capsule by mouth once daily. tamsulosin (FLOMAX) 0.4 mg Take 1 capsule by mouth daily at bedtime. clopidogrel (PLAVIX) 75 mg tablet Take 75 mg by mouth once daily. losartan (COZAAR) 25 mg tablet Take 25 mg by mouth once daily. nitroglycerin sublingual (NITROQUICK) 0.4 mg SL tablet DISSOLVE 1 TABLET UNDER THE TONGUE NEEDED FOR CHEST PAIN- MAY REPEAT EVERY 5 MINUTES IF NEEDED ( MAX 3 DOSES.- IF NO RELIEF CALL 911) aspirin, enteric coated (ASPIRIN, ENTERIC COATED) 81 mg EC tablet Take 81 mg by mouth daily with breakfast. metoprolol succinate ER (TOPROL XL) 25 mg 24 hr tablet Take 25 mg by mouth once daily. diclofenac (VOLTAREN) 1 % topical gel Apply 2 g to affected area twice daily as needed. rosuvastatin (CRESTOR) 20 mg tablet Take 1 tablet by mouth daily at bedtime. ferrous sulfate 325 mg (65 mg iron) tablet Take 1 tablet by mouth twice daily with meals. (Patient taking differently: Take 325 mg by mouth once daily.) lgcyuuao-tto-AC-lycopen-lutein (CENTRUM SILVER MEN) 300-600-300 mcg tab Take 1 tablet by mouth once daily. COMPOUNDED PRESCRIPTION CMC Push Brace to be used daily as directed. Compression Knee Highs KNEE HIGH COMPRESSION STOCKINGS 20-30 MM. DX: EDEMA, varicose veins No current facility-administered medications for this visit. ALLERGIES: ALLERGIES Allergen Reactions Baycol [Other] Intolerance leg cramps Environmental Aller* Cockroaches, trees, weeds Erythromycin Intolerance GI upset Lipitor [Atorvastat* Intolerance leg pain,weakness Niaspan [Niacin] Hives Penicillins Hives hives PAST MEDICAL HISTORY Diagnosis Date Arthritis Benign neoplasm of rectum and anal canal Seeing Dr. Falcon CAD (coronary artery disease) 70% LAD s/p PCI and stent x1, Dr. Bower Enthesopathy of hip region Esophageal reflux Generalized anxiety disorder High cholesterol Hypogonadism in male Internal hemorrhoids without mention of complication Neuroma LEFT FOOT NSTEMI (non-ST elevated myocardial infarction) (HCC) Other and unspecified hyperlipidemia Umbilical hernia without mention of obstruction or gangrene Varicose veins Vitamin D insufficiency PAST SURGICAL HISTORY Procedure Laterality Date ARTHROSCOPY KNEE DIAGNOSTIC W/WO SYNOVIAL BX SPX Arthroscopy, knee, BILAT COLONOSCOPY FLX DX W/COLLJ SPEC WHEN PFRMD 12/10/2020 COLONOSCOPY W/BIOPSY SINGLE/MULTIPLE 11/05/2010 ESOPHAGOGASTRODUODENOSCOPY TRANSORAL DIAGNOSTIC 11/17/2000 EGD ESOPHAGOGASTRODUODENOSCOPY TRANSORAL DIAGNOSTIC 09/06/2005 EGD ESOPHAGOGASTRODUODENOSCOPY TRANSORAL DIAGNOSTIC 12/10/2020 EXCISION NEUROMA, DIGIT NERVE EACH ADDL 06/2009 Bilateral feet EYE SURGERY HX FRACTURE SURGERY HEMORRHOID SURGERY HX [id number] [facility] HERNIA REPAIR HX PAST SURGICAL HISTORY OF 06/2002 left wrist and left elbow PAST SURGICAL HISTORY OF 05/2009 Varicose vein stripping PAST SURGICAL HISTORY OF 02/22/2019 left foot fracture/dislocation repair. Dr. Kirk PAST SURGICAL HISTORY OF Left 07/2019 Removal of screw from left ankle with placement of Tightrope implant. RPR UMBILICAL HRNA 5 YRS/> REDUCIBLE 04/03/2009 SKIN BIOPSY HX TONSILLECTOMY HX TONSILLECTOMY PRIMARY/SECONDARY Tonsillectomy FAMILY HISTORY Problem Relation Age of Onset Alzheimer's Disease Father Coronary Artery Disease Mother Heart Mother other (stomach problems) Mother open heart surgery,ashd,diabetes Cataract Maternal Grandfather Cataract Paternal Grandmother Catar (more content not included)... [facility] 03-20-2023 History of Present illness Narrative Patient presents with: 6 Month Exam Derm Problem Pain HPI: Patient presents today for office visit for follow up. Derm problem: Some places with itching that needs to have checking. Pain in left knee and bilateral feet would like to discuss today. Has been following closely with [facility]. No chest pain or shortness of breath. No edema. No palpitations. Has been having some hyperhidrosis. Has been there for some years. Has family members who are the same. Had thyroid checked recently. He is not taking his testosterone which might contribute. It is all the time. Concentration can cause it. No flushing. Has been having some toe pain. Has been on feet. No redness. Some swelling. No trauma. He sees Dr Kirk. Recommended he follow with him. Has areas on his skin that he picks at. Has a scaly skin that currently has some scabs from picking. Discussed leaving it alone. Offered derm. Has had issues with his left knee going up and down steps. Feels like wants to give out. No edema. No redness or warmth. No issues. MEDICATIONS: Current Outpatient Medications Medication Sig melatonin 10 mg tab Take 10 mg by mouth daily at bedtime. famotidine (PEPCID) 20 mg tablet Take 1 tablet by mouth daily at bedtime. esomeprazole (NEXIUM) 40 mg capsule Take 1 capsule by mouth once daily. tamsulosin (FLOMAX) 0.4 mg Take 1 capsule by mouth daily at bedtime. clopidogrel (PLAVIX) 75 mg tablet Take 75 mg by mouth once daily. losartan (COZAAR) 25 mg tablet Take 25 mg by mouth once daily. nitroglycerin sublingual (NITROQUICK) 0.4 mg SL tablet DISSOLVE 1 TABLET UNDER THE TONGUE NEEDED FOR CHEST PAIN- MAY REPEAT EVERY 5 MINUTES IF NEEDED ( MAX 3 DOSES.- IF NO RELIEF CALL 911) aspirin, enteric coated (ASPIRIN, ENTERIC COATED) 81 mg EC tablet Take 81 mg by mouth daily with breakfast. metoprolol succinate ER (TOPROL XL) 25 mg 24 hr tablet Take 25 mg by mouth once daily. diclofenac (VOLTAREN) 1 % topical gel Apply 2 g to affected area twice daily as needed. rosuvastatin (CRESTOR) 20 mg tablet Take 1 tablet by mouth daily at bedtime. ferrous sulfate 325 mg (65 mg iron) tablet Take 1 tablet by mouth twice daily with meals. (Patient taking differently: Take 325 mg by mouth once daily.) fyvgrpsk-dts-KS-lycopen-lutein (CENTRUM SILVER MEN) 300-600-300 mcg tab Take 1 tablet by mouth once daily. COMPOUNDED PRESCRIPTION CMC Push Brace to be used daily as directed. Compression Knee Highs KNEE HIGH COMPRESSION STOCKINGS 20-30 MM. DX: EDEMA, varicose veins No current facility-administered medications for this visit. ALLERGIES: ALLERGIES Allergen Reactions Baycol [Other] Intolerance leg cramps Environmental Aller* Cockroaches, trees, weeds Erythromycin Intolerance GI upset Lipitor [Atorvastat* Intolerance leg pain,weakness Niaspan [Niacin] Hives Penicillins Hives hives PAST MEDICAL HISTORY Diagnosis Date Arthritis Benign neoplasm of rectum and anal canal Seeing Dr. Falcon CAD (coronary artery disease) 70% LAD s/p PCI and stent x1, Dr. Bower Enthesopathy of hip region Esophageal reflux Generalized anxiety disorder High cholesterol Hypogonadism in male Internal hemorrhoids without mention of complication Neuroma LEFT FOOT NSTEMI (non-ST elevated myocardial infarction) (HCC) Other and unspecified hyperlipidemia Umbilical hernia without mention of obstruction or gangrene Varicose veins Vitamin D insufficiency PAST SURGICAL HISTORY Procedure Laterality Date ARTHROSCOPY KNEE DIAGNOSTIC W/WO SYNOVIAL BX SPX Arthroscopy, knee, BILAT COLONOSCOPY FLX DX W/COLLJ SPEC WHEN PFRMD 12/10/2020 COLONOSCOPY W/BIOPSY SINGLE/MULTIPLE 11/05/2010 ESOPHAGOGASTRODUODENOSCOPY TRANSORAL DIAGNOSTIC 11/17/2000 EGD ESOPHAGOGASTRODUODENOSCOPY TRANSORAL DIAGNOSTIC 09/06/2005 EGD ESOPHAGOGASTRODUODENOSCOPY TRANSORAL DIAGNOSTIC 12/10/2020 EXCISION NEUROMA, DIGIT NERVE EACH ADDL 06/2009 Bilateral feet EYE SURGERY HX FRACTURE SURGERY HEMORRHOID SURGERY HX [id number] [facility] HERNIA REPAIR HX PAST SURGICAL HISTORY OF 06/2002 left wrist and left elbow PAST SURGICAL HISTORY OF 05/2009 Varicose vein stripping PAST SURGICAL HISTORY OF 02/22/2019 left foot fracture/dislocation repair. Dr. Kirk PAST SURGICAL HISTORY OF Left 07/2019 Removal of screw from left ankle with placement of Tightrope implant. RPR UMBILICAL HRNA 5 YRS/> REDUCIBLE 04/03/2009 SKIN BIOPSY HX TONSILLECTOMY HX TONSILLECTOMY PRIMARY/SECONDARY <AGE 12 Tonsillectomy FAMILY HISTORY Problem Relation Age of Onset Alzheimer's Disease Father Coronary Artery Disease Mother Heart Mother other (stomach problems) Mother open heart surgery,ashd,diabetes Cataract Maternal Grandfather Cataract Paternal Grandmother Cataract Paternal Grandfather other (obese) Sister Social History Tobacco Use Smoking status: Never Smokeless tobacco: Never Vaping Use Vaping Use: Never used Substance Use Topics Alcohol use: Yes Comment: ocassional Drug use: No Reviewed current medications, allergies, past medical history, surgical history, family history and social history today. REVIEW OF SYSTEMS All other reviewed and negative other than HPI. VITALS: BP 100/62 Pulse 61 Wt 92.5 kg (204 lb) SpO2 95% BMI 29.27 kg/m Last 4 Encounter Wt Readings: Date: Wt: 10/06/2022 92.1 kg (203 lb) 09/19/2022 96.2 kg (212 lb) 08/18/2022 92.9 kg (204 lb 12.8 oz) 08/10/2022 91.2 kg (201 lb) PHYSICAL EXAMINATION: General appearance: Well appearing, alert, in no acute distress, well-hydrated, well nourished. Skin: open area that appears chonic, mild thickened skin with some abrasions. Discussed not picking it to get a better look. Head: Normocephalic, no masses, lesions, tenderness or abnormalities Neck: Supple, no adenopathy; thyroid symmetric, normal size, no bruits Back: Normal exam Lungs: Lungs clear to auscultation. No wheezing, rhonchi, rales Heart: RRR without murmur, gallop, or rubs. No ectopy Abdomen: Normal abdominal exam, Abdomen soft, non-tender. Bowel sounds normal. No masses, organomegaly Extremities: No deformities, edema, skin discoloration, clubbing or cyanosis. Good capillary refill. Knee shows no effusion, redness or warmth ASSESSMENT/PLAN: 1. Coronary artery disease involving [place] heart without angina pectoris, unspecified vessel or lesion type - ICD9: 414.01, ICD10: I25.10 (primary diagnosis) - per cardiology. 2. Bilateral carotid artery stenosis - ICD9: 433.10, 433.30, ICD10: I65.23 - is up to date on testing. 3. Stress and adjustment reaction - ICD9: 309.89, ICD10: F43.29 - appears stable. 4. Mixed hyperlipidemia - ICD9: 272.2, ICD10: E78.2 - controlled. 5. NOE (obstructive sleep apnea) - ICD9: 327.23, ICD10: G47.33 - stable. 6. Hyperhidrosis - ICD9: 705.21, ICD10: R61 - check labs. Not sure if this is his normal baseline. Consider endo - CBC + DIFF - COMP METABOLIC PANEL - TESTOSTERONE TOTAL 7. Hypogonadism in male - ICD9: 257.2, ICD10: E29.1 - TESTOSTERONE TOTAL 8. Chronic pain of left knee - ICD9: 719.46, 338.29, ICD10: M25.562, G89.29 - XR KNEE GENERAL 4V AP BOTH/PA BOTH/LAT/MERC LEFT 9. Dermatitis - ICD9: 692.9, ICD10: L30.9 - discussed skin care of rash - follow up if symptoms persist or worsen. Call if symptoms worsen at all or if not better in one to two weeks Pacheco Kuhn MD documented in this encounter [facility] 02-13-2023 Miscellaneous Notes Last office visit: 10/06/22 F/u scheduled: 03/20/23 America Jackson Ma documented in this encounter [facility] 12-12-2022 Miscellaneous Notes Patient has been identified by name and date of : Yes Requested Prescriptions Pending Prescriptions Disp Refills famotidine (PEPCID) 20 mg tablet 30 tablet 5 Sig: Take 1 tablet by mouth daily at bedtime. VI 10/06/22 NOV 03/20/23 RX INSTRUCTIONS: Patient aware RX will be sent to pharmacy. No need to notify patient. Kristina Eduardo Ma documented in this encounter [facility] 10-06-2022 Note HNO ID: [id number] Author: Pacheco Kuhn MD Service: ? Author Type: Physician Type: Progress Notes Filed: 10/06/2022 11:41 AM Note Text: No chief complaint on file. HPI: Patient presents today for office visit for follow up. ENT: Patient complains of sinus pressure. Duration: started Monday evening, getting better Fever: No. Headache: Yes. Sore throat: Yes. Ear pain: No. Nasal drainage: Yes. Cough: Yes. Shortness of breath: No. Nausea: No. Vomiting: No. Diarrhea: No. Previous treatment: wasn't sure what was ok to use. Was hard to use CPAP Symptoms are improving. MEDICATIONS: Current Outpatient Medications Medication Sig clopidogrel (PLAVIX) 75 mg tablet Take 75 mg by mouth once daily. losartan (COZAAR) 25 mg tablet Take 25 mg by mouth once daily. tamsulosin (FLOMAX) 0.4 mg Take 1 capsule by mouth daily at bedtime. famotidine (PEPCID) 20 mg tablet Take 1 tablet by mouth daily at bedtime. nitroglycerin sublingual (NITROQUICK) 0.4 mg SL tablet DISSOLVE 1 TABLET UNDER THE TONGUE NEEDED FOR CHEST PAIN- MAY REPEAT EVERY 5 MINUTES IF NEEDED ( MAX 3 DOSES.- IF NO RELIEF CALL 911) aspirin, enteric coated (ASPIRIN, ENTERIC COATED) 81 mg EC tablet Take 81 mg by mouth daily with breakfast. metoprolol succinate ER (TOPROL XL) 25 mg 24 hr tablet TAKE 1/2 (ONE-HALF) OF A TABLET BY MOUTH ONCE DAILY for 60 days, hold for heart rate less than 60 or systolic blood pressure less than 100mmHg testosterone cypionate (DEPO-TESTOSTERONE) 200 mg/mL injection inject 1ml intramuscularly every 4 weeks esomeprazole (NEXIUM) 40 mg capsule Take 1 capsule by mouth once daily. diclofenac (VOLTAREN) 1 % topical gel Apply 2 g to affected area twice daily as needed. rosuvastatin (CRESTOR) 20 mg tablet Take 1 tablet by mouth daily at bedtime. ferrous sulfate 325 mg (65 mg iron) tablet Take 1 tablet by mouth twice daily with meals. COMPOUNDED PRESCRIPTION CMC Push Brace to be used daily as directed. Compression Knee Highs KNEE HIGH COMPRESSION STOCKINGS 20-30 MM. DX: EDEMA, varicose veins hldvxwbt-fvc-BT-lycopen-lutein (CENTRUM SILVER MEN) 300-600-300 mcg tab Take 1 tablet by mouth once daily. No current facility-administered medications for this visit. ALLERGIES: ALLERGIES Allergen Reactions Baycol [Other] Intolerance leg cramps Environmental Aller* Cockroaches, trees, weeds Erythromycin Intolerance GI upset Lipitor [Atorvastat* Intolerance leg pain,weakness Niaspan [Niacin] Hives Penicillins Hives hives PAST MEDICAL HISTORY Diagnosis Date Arthritis Benign neoplasm of rectum and anal canal Seeing Dr. Falcon CAD (coronary artery disease) 70% LAD s/p PCI and stent x1, Dr. Bower Enthesopathy of hip region Esophageal reflux Generalized anxiety disorder High cholesterol Hypogonadism in male Internal hemorrhoids without mention of complication Neuroma LEFT FOOT NSTEMI (non-ST elevated myocardial infarction) (HCC) Other and unspecified hyperlipidemia Umbilical hernia without mention of obstruction or gangrene Varicose veins Vitamin D insufficiency PAST SURGICAL HISTORY Procedure Laterality Date ARTHROSCOPY KNEE DIAGNOSTIC W/WO SYNOVIAL BX SPX Arthroscopy, knee, BILAT COLONOSCOPY FLX DX W/COLLJ SPEC WHEN PFRMD 12/10/2020 COLONOSCOPY W/BIOPSY SINGLE/MULTIPLE 11/05/2010 ESOPHAGOGASTRODUODENOSCOPY TRANSORAL DIAGNOSTIC 11/17/2000 EGD ESOPHAGOGASTRODUODENOSCOPY TRANSORAL DIAGNOSTIC 09/06/2005 EGD ESOPHAGOGASTRODUODENOSCOPY TRANSORAL DIAGNOSTIC 12/10/2020 EXCISION NEUROMA, DIGIT NERVE EACH ADDL 06/2009 Bilateral feet EYE SURGERY HX FRACTURE SURGERY HEMORRHOID SURGERY HX [id number] [place] HERNIA REPAIR HX PAST SURGICAL HISTORY OF 06/2002 left wrist and left elbow PAST SURGICAL HISTORY OF 05/2009 Varicose vein stripping PAST SURGICAL HISTORY OF 02/22/2019 left foot fracture/dislocation repair. Dr. Kirk PAST SURGICAL HISTORY OF Left 07/2019 Removal of screw from left ankle with placement of Tightrope implant. RPR UMBILICAL HRNA 5 YRS/> REDUCIBLE 04/03/2009 SKIN BIOPSY HX TONSILLECTOMY HX TONSILLECTOMY PRIMARY/SECONDARY Tonsillectomy FAMILY HISTORY Problem Relation Age of Onset Alzheimer's Disease Father Coronary Artery Disease Mother Heart Mother other (stomach problems) Mother open heart surgery,ashd,diabetes Cataract Maternal Grandfather Cataract Paternal Grandmother Cataract Paternal Grandfather other (obese) Sister Social History Tobacco Use Smoking status: Never Smokeless tobacco: Never Vaping Use Vaping Use: Never used Substance Use Topics Alcohol use: Yes Comment: ocassional Drug use: No Reviewed current medications, allergies, past medical history, surgical history, family history and social history today. REVIEW OF SYSTEMS All other reviewed and negative other than HPI. VITALS: BP 112/62 Pulse (!) 58 Temp 36.5 ?C (97.7 ?F) (Tympanic) Wt 92.1 (more content not included)... [facility] 10-06-2022 Instructions Pacheco Kuhn MD - 10/06/2022 11:37 AM EST Can use mucinex or coricidin HBP. documented in this encounter [facility] 10-06-2022 History of Present illness Narrative No chief complaint on file. HPI: Patient presents today for office visit for follow up. ENT: Patient complains of sinus pressure. Duration: started Monday evening, getting better Fever: No. Headache: Yes. Sore throat: Yes. Ear pain: No. Nasal drainage: Yes. Cough: Yes. Shortness of breath: No. Nausea: No. Vomiting: No. Diarrhea: No. Previous treatment: wasn't sure what was ok to use. Was hard to use CPAP Symptoms are improving. MEDICATIONS: Current Outpatient Medications Medication Sig clopidogrel (PLAVIX) 75 mg tablet Take 75 mg by mouth once daily. losartan (COZAAR) 25 mg tablet Take 25 mg by mouth once daily. tamsulosin (FLOMAX) 0.4 mg Take 1 capsule by mouth daily at bedtime. famotidine (PEPCID) 20 mg tablet Take 1 tablet by mouth daily at bedtime. nitroglycerin sublingual (NITROQUICK) 0.4 mg SL tablet DISSOLVE 1 TABLET UNDER THE TONGUE NEEDED FOR CHEST PAIN- MAY REPEAT EVERY 5 MINUTES IF NEEDED ( MAX 3 DOSES.- IF NO RELIEF CALL 911) aspirin, enteric coated (ASPIRIN, ENTERIC COATED) 81 mg EC tablet Take 81 mg by mouth daily with breakfast. metoprolol succinate ER (TOPROL XL) 25 mg 24 hr tablet TAKE 1/2 (ONE-HALF) OF A TABLET BY MOUTH ONCE DAILY for 60 days, hold for heart rate less than 60 or systolic blood pressure less than 100mmHg testosterone cypionate (DEPO-TESTOSTERONE) 200 mg/mL injection inject 1ml intramuscularly every 4 weeks esomeprazole (NEXIUM) 40 mg capsule Take 1 capsule by mouth once daily. diclofenac (VOLTAREN) 1 % topical gel Apply 2 g to affected area twice daily as needed. rosuvastatin (CRESTOR) 20 mg tablet Take 1 tablet by mouth daily at bedtime. ferrous sulfate 325 mg (65 mg iron) tablet Take 1 tablet by mouth twice daily with meals. COMPOUNDED PRESCRIPTION CMC Push Brace to be used daily as directed. Compression Knee Highs KNEE HIGH COMPRESSION STOCKINGS 20-30 MM. DX: EDEMA, varicose veins buhjlqvm-qsx-BG-lycopen-lutein (CENTRUM SILVER MEN) 300-600-300 mcg tab Take 1 tablet by mouth once daily. No current facility-administered medications for this visit. ALLERGIES: ALLERGIES Allergen Reactions Baycol [Other] Intolerance leg cramps Environmental Aller* Cockroaches, trees, weeds Erythromycin Intolerance GI upset Lipitor [Atorvastat* Intolerance leg pain,weakness Niaspan [Niacin] Hives Penicillins Hives hives PAST MEDICAL HISTORY Diagnosis Date Arthritis Benign neoplasm of rectum and anal canal Seeing Dr. Falcon CAD (coronary artery disease) 70% LAD s/p PCI and stent x1, Dr. Bower Enthesopathy of hip region Esophageal reflux Generalized anxiety disorder High cholesterol Hypogonadism in male Internal hemorrhoids without mention of complication Neuroma LEFT FOOT NSTEMI (non-ST elevated myocardial infarction) (HCC) Other and unspecified hyperlipidemia Umbilical hernia without mention of obstruction or gangrene Varicose veins Vitamin D insufficiency PAST SURGICAL HISTORY Procedure Laterality Date ARTHROSCOPY KNEE DIAGNOSTIC W/WO SYNOVIAL BX SPX Arthroscopy, knee, BILAT COLONOSCOPY FLX DX W/COLLJ SPEC WHEN PFRMD 12/10/2020 COLONOSCOPY W/BIOPSY SINGLE/MULTIPLE 11/05/2010 ESOPHAGOGASTRODUODENOSCOPY TRANSORAL DIAGNOSTIC 11/17/2000 EGD ESOPHAGOGASTRODUODENOSCOPY TRANSORAL DIAGNOSTIC 09/06/2005 EGD ESOPHAGOGASTRODUODENOSCOPY TRANSORAL DIAGNOSTIC 12/10/2020 EXCISION NEUROMA, DIGIT NERVE EACH ADDL 06/2009 Bilateral feet EYE SURGERY HX FRACTURE SURGERY HEMORRHOID SURGERY HX [id number] [place] HERNIA REPAIR HX PAST SURGICAL HISTORY OF 06/2002 left wrist and left elbow PAST SURGICAL HISTORY OF 05/2009 Varicose vein stripping PAST SURGICAL HISTORY OF 02/22/2019 left foot fracture/dislocation repair. Dr. Kirk PAST SURGICAL HISTORY OF Left 07/2019 Removal of screw from left ankle with placement of Tightrope implant. RPR UMBILICAL HRNA 5 YRS/> REDUCIBLE 04/03/2009 SKIN BIOPSY HX TONSILLECTOMY HX TONSILLECTOMY PRIMARY/SECONDARY <AGE 12 Tonsillectomy FAMILY HISTORY Problem Relation Age of Onset Alzheimer's Disease Father Coronary Artery Disease Mother Heart Mother other (stomach problems) Mother open heart surgery,ashd,diabetes Cataract Maternal Grandfather Cataract Paternal Grandmother Cataract Paternal Grandfather other (obese) Sister Social History Tobacco Use Smoking status: Never Smokeless tobacco: Never Vaping Use Vaping Use: Never used Substance Use Topics Alcohol use: Yes Comment: ocassional Drug use: No Reviewed current medications, allergies, past medical history, surgical history, family history and social history today. REVIEW OF SYSTEMS All other reviewed and negative other than HPI. VITALS: BP 112/62 Pulse (!) 58 Temp 36.5 C (97.7 F) (Tympanic) Wt 92.1 kg (203 lb) SpO2 96% BMI 29.13 kg/m Last 4 Encounter Wt Readings: Date: Wt: 09/19/2022 96.2 kg (212 lb) 08/18/2022 92.9 kg (204 lb 12.8 oz) 08/10/2022 91.2 kg (201 lb) 08/05/2022 93 kg (205 lb) PHYSICAL EXAMINATION: General appearance: Well appearing, alert, in no acute distress, well-hydrated, well nourished. Skin: Skin color, texture, turgor normal, no suspicious rashes or lesions Head: Normocephalic, no masses, lesions, tenderness or abnormalities Eyes: Anicteric sclera. Pupils are equally round and reactive to light. Extraocular movements are intact. Ears: External ears normal, canals clear Nose/Sinuses: Nares normal, septum midline, mucosa normal, no drainage or sinus tenderness Oropharynx: Lips, mucosa, and tongue normal, teeth and gums normal, oropharynx normal Neck: Supple, no adenopath Lungs: Lungs clear to auscultation. No wheezing, rhonchi, rales Heart: RRR without murmur, gallop, or rubs. No ectopy Abdomen: Normal abdominal exam, Abdomen soft, non-tender. Bowel sounds normal. No masses, organomegaly ASSESSMENT/PLAN: 1. URI, acute - ICD9: 465.9, ICD10: J06.9 (primary diagnosis) - mucinex prn. Red flags for re-assessment reviewed with patient in detail. - Call if symptoms worsen at all or if not better in one to two weeks 2. Cough, unspecified type - ICD9: 786.2, ICD10: R05.9 Check covid and flu. Pacheco Kuhn documented in this encounter [facility] 10-05-2022 Miscellaneous Notes Needs seen documented in this encounter [facility] 09-19-2022 Note HNO ID: [id number] Author: RT Romina(R) Service: Nuclear Medicine Author Type: Technologist Type: Progress Notes Filed: 09/19/2022 6:17 PM Note Text: Radiology Service Progress Note PATIENT NAME: Ketan Cordero DATE OF SERVICE: September 19, 2022 TIME: 6:11 PM PATIENT IDENTITY VERIFICATION COMPLETED USING TWO (2) IDENTIFIERS: Name and Date of confirmed by patient verbally. FALL SCREENING: Has the patient had 2 falls in the last year or 1 fall with injury or currently using an Ambulatory Assistive Device (Walker, Cane, Wheelchair, Crutches, etc.)? No PATIENT GENDER DATA: Male PATIENT RELEVANT IMPLANT DATA REVIEWED: Not Applicable RADIOLOGY DEPARTMENT: General X-ray: Exam(s) Completed: Upper Extremity X-Ray(s): Wrist, left PERIPHERAL IV DATA: Not applicable SIGNED BY: RT Romina(R) September 19, 2022 6:11 PM [facility] 09-19-2022 Note HNO ID: [id number] Author: Pacheco Kuhn MD Service: ? Author Type: Physician Type: Progress Notes Filed: 09/19/2022 5:47 PM Note Text: Patient presents with: Follow Up HPI: Patient presents today for office visit for follow up. Saw Cinthya Cobos with Dr. Bower's office 08/08/22. Denies chest pain. Still having what he refers to as chest sensations or twinges occasionally. States he's gotten used to them. Nothing new. Cardiology is aware. They come and go. Does have shortness of breath. Wants to work out more aggressively-advised him to check with them. No new edema. HTN: Taken off Brilinta and Lisinopril and started on Plavix and Losartan. Not checking BP at home. Edema to legs. Saw Pulmonary on 09/15/22. Getting cpap. Scheduled for blood flow screening on 09/22/22 with [facility]. Cough went away with steroids. See previous. Cardiology follow up scheduled for 08/08/22 Dr. Bower. HTN: Checking BP at home daily. Consistently high in morning before meds. Complaints of headaches. Denies dizziness. Feels weak. No syncope. Edema has gotten better. Denies chest pain. Refers to chest sensations since stent placement. Having twinges currently. Does have shortness of breath. Restrictions at work. Has not been doing any heavy lifting. Would like to start skiing. Has lost 16 lbs since AL. Has not been eating as much. Will be starting cardiac rehab after cardac eval. Has been getting what he thinks is carpal tunnel. Has had issues to left wrist and elbow. Has been worse on the left than right. Is actually more pain in his wrist. No definite numbness or weakness. No trauma. Has pain in medial side of wrist. Carry's meat regularly. Worse with deer season. Has skin tags. Has one in the rectal area. Is unsure if could be an external hemorrhoid. Has noted occasional bleeding when he wipes in the area. Can itch. No current issues with irritation. Has had his knee scoped in the past. His left has started to act up and is better with weight loss. Has a chronic cough. Takes whitney. Has reflux.is on nexium. Has done xrays in the recent past Is on an bladimir but predates the medication. Has been there for years. PFT's: Spirometry shows a reduced FEV1/FVC ratio; but individually normal FVC and FEV1 predicted values.This pattern indicates mild obstruction or a normal variant. The TLC, RV and RV/TLC are normal. The diffusing capacity is normal. Component Latest Ref Rng AND Units 08/10/2022 Protein, Total 6.3 - 8.0 g/dL 7.1 Albumin 3.9 - 4.9 g/dL 4.3 Calcium 8.5 - 10.2 mg/dL 9.8 Bilirubin, Total 0.2 - 1.3 mg/dL 0.4 Alkaline Phosphatase 38 - 113 U/L 75 AST 14 - 40 U/L 16 ALT 10 - 54 U/L 16 Glucose 74 - 99 mg/dL 116 (H) BUN 9 - 24 mg/dL 18 Creatinine 0.73 - 1.22 mg/dL 1.03 Sodium 136 - 144 mmol/L 142 Potassium 3.7 - 5.1 mmol/L 3.9 Chloride 97 - 105 mmol/L 103 CO2 22 - 30 mmol/L 29 Anion Gap 9 - 18 mmol/L 10 eGFR >=60 mL/min/1.73mA? 80 Cholesterol, Total <200 mg/dL 141 Triglyceride <150 mg/dL 174 (H) HDL Cholesterol >39 mg/dL 39 (L) Non HDL Cholesterol <130 mg/dL 102 Fasting Time hrs 12 VLDL Cholesterol <30 mg/dL 35 (H) TC:HDL Ratio <5.10 3.62 LDL Cholesterol <100 mg/dL 67 LDL:HDL Ratio <2.54 1.72 MEDICATIONS: Current Outpatient Medications Medication Sig clopidogrel (PLAVIX) 75 mg tablet Take 75 mg by mouth once daily. losartan (COZAAR) 25 mg tablet Take 25 mg by mouth once daily. tamsulosin (FLOMAX) 0.4 mg Take 1 capsule by mouth daily at bedtime. famotidine (PEPCID) 20 mg tablet Take 1 tablet by mouth daily at bedtime. nitroglycerin sublingual (NITROQUICK) 0.4 mg SL tablet DISSOLVE 1 TABLET UNDER THE TONGUE NEEDED FOR CHEST PAIN- MAY REPEAT EVERY 5 MINUTES IF NEEDED ( MAX 3 DOSES.- IF NO RELIEF CALL 911) aspirin, enteric coated (ASPIRIN, ENTERIC COATED) 81 mg EC tablet Take 81 mg by mouth daily with breakfast. metoprolol succinate ER (TOPROL XL) 25 mg 24 hr tablet TAKE 1/2 (ONE-HALF) OF A TABLET BY MOUTH ONCE DAILY for 60 days, hold for heart rate less than 60 or systolic blood pressure less than 100mmHg testosterone cypionate (DEPO-TESTOSTERONE) 200 mg/mL injection inject 1ml intramuscularly every 4 weeks esomeprazole (NEXIUM) 40 mg capsule Take 1 capsule by mouth once daily. diclofenac (VOLTAREN) 1 % topical gel Apply 2 g to affected area twice daily as needed. rosuvastatin (CRESTOR) 20 mg tablet Take 1 tablet by mouth daily at bedtime. ferrous sulfate 325 mg (65 mg iron) tablet Take 1 tablet by mouth twice daily with meals. COMPOUNDED PRESCRIPTION CMC Push Brace to be used daily as directed. Compression Knee Highs KNEE HIGH COMPRESSION STOCKINGS 20-30 MM. DX: EDEMA, varicose veins stvpdstx-vrh-MG-lycopen-lutein (CENTRUM SILVER MEN) 300-600-300 mcg tab Take 1 tablet by mouth once daily. No current facility-administered medications for this visit. ALLERGIES: ALLERGIES Allergen Reactions Baycol [Other] I (more content not included)... [facility] 09-19-2022 Miscellaneous Notes Addended by: PACHECO KUHN on: 09/19/2022 05:47 PM Modules accepted: Orders documented in this encounter [facility] 09-19-2022 History of Present illness Narrative Patient presents with: Follow Up HPI: Patient presents today for office visit for follow up. Saw Cinthya Cobos with Dr. Bower's office 08/08/22. Denies chest pain. Still having what he refers to as chest sensations or twinges occasionally. States he's gotten used to them. Nothing new. Cardiology is aware. They come and go. Does have shortness of breath. Wants to work out more aggressively-advised him to check with them. No new edema. HTN: Taken off Brilinta and Lisinopril and started on Plavix and Losartan. Not checking BP at home. Edema to legs. Saw Pulmonary on 09/15/22. Getting cpap. Scheduled for blood flow screening on 09/22/22 with [facility]. Cough went away with steroids. See previous. Cardiology follow up scheduled for 08/08/22 Dr. Bower. HTN: Checking BP at home daily. Consistently high in morning before meds. Complaints of headaches. Denies dizziness. Feels weak. No syncope. Edema has gotten better. Denies chest pain. Refers to chest sensations since stent placement. Having twinges currently. Does have shortness of breath. Restrictions at work. Has not been doing any heavy lifting. Would like to start skiing. Has lost 16 lbs since AL. Has not been eating as much. Will be starting cardiac rehab after cardac eval. Has been getting what he thinks is carpal tunnel. Has had issues to left wrist and elbow. Has been worse on the left than right. Is actually more pain in his wrist. No definite numbness or weakness. No trauma. Has pain in medial side of wrist. Carry's meat regularly. Worse with deer season. Has skin tags. Has one in the rectal area. Is unsure if could be an external hemorrhoid. Has noted occasional bleeding when he wipes in the area. Can itch. No current issues with irritation. Has had his knee scoped in the past. His left has started to act up and is better with weight loss. Has a chronic cough. Takes whitney. Has reflux.is on nexium. Has done xrays in the recent past Is on an bladimir but predates the medication. Has been there for years. PFT's: Spirometry shows a reduced FEV1/FVC ratio; but individually normal FVC and FEV1 predicted values.This pattern indicates mild obstruction or a normal variant. The TLC, RV and RV/TLC are normal. The diffusing capacity is normal. Component Latest Ref Rng & Units 08/10/2022 Protein, Total 6.3 - 8.0 g/dL 7.1 Albumin 3.9 - 4.9 g/dL 4.3 Calcium 8.5 - 10.2 mg/dL 9.8 Bilirubin, Total 0.2 - 1.3 mg/dL 0.4 Alkaline Phosphatase 38 - 113 U/L 75 AST 14 - 40 U/L 16 ALT 10 - 54 U/L 16 Glucose 74 - 99 mg/dL 116 (H) BUN 9 - 24 mg/dL 18 Creatinine 0.73 - 1.22 mg/dL 1.03 Sodium 136 - 144 mmol/L 142 Potassium 3.7 - 5.1 mmol/L 3.9 Chloride 97 - 105 mmol/L 103 CO2 22 - 30 mmol/L 29 Anion Gap 9 - 18 mmol/L 10 eGFR >=60 mL/min/1.73m 80 Cholesterol, Total <200 mg/dL 141 Triglyceride <150 mg/dL 174 (H) HDL Cholesterol >39 mg/dL 39 (L) Non HDL Cholesterol <130 mg/dL 102 Fasting Time hrs 12 VLDL Cholesterol <30 mg/dL 35 (H) TC:HDL Ratio <5.10 3.62 LDL Cholesterol <100 mg/dL 67 LDL:HDL Ratio <2.54 1.72 MEDICATIONS: Current Outpatient Medications Medication Sig clopidogrel (PLAVIX) 75 mg tablet Take 75 mg by mouth once daily. losartan (COZAAR) 25 mg tablet Take 25 mg by mouth once daily. tamsulosin (FLOMAX) 0.4 mg Take 1 capsule by mouth daily at bedtime. famotidine (PEPCID) 20 mg tablet Take 1 tablet by mouth daily at bedtime. nitroglycerin sublingual (NITROQUICK) 0.4 mg SL tablet DISSOLVE 1 TABLET UNDER THE TONGUE NEEDED FOR CHEST PAIN- MAY REPEAT EVERY 5 MINUTES IF NEEDED ( MAX 3 DOSES.- IF NO RELIEF CALL 911) aspirin, enteric coated (ASPIRIN, ENTERIC COATED) 81 mg EC tablet Take 81 mg by mouth daily with breakfast. metoprolol succinate ER (TOPROL XL) 25 mg 24 hr tablet TAKE 1/2 (ONE-HALF) OF A TABLET BY MOUTH ONCE DAILY for 60 days, hold for heart rate less than 60 or systolic blood pressure less than 100mmHg testosterone cypionate (DEPO-TESTOSTERONE) 200 mg/mL injection inject 1ml intramuscularly every 4 weeks esomeprazole (NEXIUM) 40 mg capsule Take 1 capsule by mouth once daily. diclofenac (VOLTAREN) 1 % topical gel Apply 2 g to affected area twice daily as needed. rosuvastatin (CRESTOR) 20 mg tablet Take 1 tablet by mouth daily at bedtime. ferrous sulfate 325 mg (65 mg iron) tablet Take 1 tablet by mouth twice daily with meals. COMPOUNDED PRESCRIPTION CMC Push Brace to be used daily as directed. Compression Knee Highs KNEE HIGH COMPRESSION STOCKINGS 20-30 MM. DX: EDEMA, varicose veins wsypnvtp-yur-XW-lycopen-lutein (CENTRUM SILVER MEN) 300-600-300 mcg tab Take 1 tablet by mouth once daily. No current facility-administered medications for this visit. ALLERGIES: ALLERGIES Allergen Reactions Baycol [Other] Intolerance leg cramps Environmental Aller* Cockroaches, trees, weeds Erythromycin Intolerance GI upset Lipitor [Atorvastat* Intolerance leg pain,weakness Niaspan [Niacin] Hives Penicillins Hives hives PAST MEDICAL HISTORY Diagnosis Date Arthritis Benign neoplasm of rectum and anal canal Seeing Dr. Falcon CAD (coronary artery disease) 70% LAD s/p PCI and stent x1, Dr. Bower Enthesopathy of hip region Esophageal reflux Generalized anxiety disorder High cholesterol Hypogonadism in male Internal hemorrhoids without mention of complication Neuroma LEFT FOOT NSTEMI (non-ST elevated myocardial infarction) (HCC) Other and unspecified hyperlipidemia Umbilical hernia without mention of obstruction or gangrene Varicose veins Vitamin D insufficiency PAST SURGICAL HISTORY Procedure Laterality Date ARTHROSCOPY KNEE DIAGNOSTIC W/WO SYNOVIAL BX SPX Arthroscopy, knee, BILAT COLONOSCOPY FLX DX W/COLLJ SPEC WHEN PFRMD 12/10/2020 COLONOSCOPY W/BIOPSY SINGLE/MULTIPLE 11/05/2010 ESOPHAGOGASTRODUODENOSCOPY TRANSORAL DIAGNOSTIC 11/17/2000 EGD ESOPHAGOGASTRODUODENOSCOPY TRANSORAL DIAGNOSTIC 09/06/2005 EGD ESOPHAGOGASTRODUODENOSCOPY TRANSORAL DIAGNOSTIC 12/10/2020 EXCISION NEUROMA, DIGIT NERVE EACH ADDL 06/2009 Bilateral feet EYE SURGERY HX FRACTURE SURGERY HEMORRHOID SURGERY HX [id number] G[facility] HERNIA REPAIR HX PAST SURGICAL HISTORY OF 06/2002 left wrist and left elbow PAST SURGICAL HISTORY OF 05/2009 Varicose vein stripping PAST SURGICAL HISTORY OF 02/22/2019 left foot fracture/dislocation repair. Dr. Kirk PAST SURGICAL HISTORY OF Left 07/2019 Removal of screw from left ankle with placement of Tightrope implant. RPR UMBILICAL HRNA 5 YRS/> REDUCIBLE 04/03/2009 SKIN BIOPSY HX TONSILLECTOMY HX TONSILLECTOMY PRIMARY/SECONDARY <AGE 12 Tonsillectomy FAMILY HISTORY Problem Relation Age of Onset Alzheimer's Disease Father Coronary Artery Disease Mother Heart Mother other (stomach problems) Mother open heart surgery,ashd,diabetes Cataract Maternal Grandfather Cataract Paternal Grandmother Cataract Paternal Grandfather other (obese) Sister Social History Tobacco Use Smoking status: Never Smokeless tobacco: Never Vaping Use Vaping Use: Never used Substance Use Topics Alcohol use: Yes Comment: ocassional Drug use: No Reviewed current medications, allergies, past medical history, surgical history, family history and social history today. REVIEW OF SYSTEMS All other reviewed and negative other than HPI. HEALTH MAINTENANCE: Reviewed health maintenance issues today and recommended the following in detail. ADVANCE DIRECTIVE DISCUSSION Never done DEPRESSION ASSESSMENT due on 07/31/2022 VITALS: BP 106/76 Pulse 64 Ht 177.8 cm (5' 10 ) Wt 96.2 kg (212 lb) SpO2 96% BMI 30.42 kg/m Last 4 Encounter Wt Readings: Date: Wt: 08/18/2022 92.9 kg (204 lb 12.8 oz) 08/10/2022 91.2 kg (201 lb) 08/05/2022 93 kg (205 lb) 07/30/2022 93.3 kg (205 lb 9.6 oz) PHYSICAL EXAMINATION: General appearance: Well appearing, alert, in no acute distress, well-hydrated, well nourished. Skin: Skin color, texture, turgor normal, no suspicious rashes or lesions Head: Normocephalic, no masses, lesions, tenderness or abnormalities Neck: Supple, no adenopath Lungs: Lungs clear to auscultation. No wheezing, rhonchi, rales Heart: RRR without murmur, gallop, or rubs. No ectopy Abdomen: Normal abdominal exam, Abdomen soft, non-tender. Bowel sounds normal. No masses, organomegaly Extremities: No deformities, edema, skin discoloration, clubbing or cyanosis. Good capillary refill. Musculoskeletal: No joint swelling, deformity, or tenderness ASSESSMENT/PLAN: 1. Coronary artery disease involving [place] heart without angina pectoris, unspecified vessel or lesion type - ICD9: 414.01, ICD10: I25.10 (primary diagnosis) - continue to follow with cardiology and cardiac rehab. 2. NOE (obstructive sleep apnea) - ICD9: 327.23, ICD10: G47.33 - getting cpap. 3. Generalized anxiety disorder - ICD9: 300.02, ICD10: F41.1 - stable 4. Gastroesophageal reflux disease with esophagitis, unspecified whether hemorrhage - ICD9: 530.11, ICD10: K21.00 - stable. 5. Mixed hyperlipidemia - ICD9: 272.2, ICD10: E78.2 - good control - Continue current medication. Pacheco Kuhn MD Has chronic left wrist pain and foot issues after surgery. 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 He is using voltaren gel. documented in this encounter [facility] 08-30-2022 Note HNO ID: [id number] Author: Christopher James MD Service: ? Author Type: Physician Type: Progress Notes Filed: 08/30/2022 9:03 AM Note Text: Preoperative diagnosis: #1 skin tags to left axilla, #2 perianal skin tag Postoperative diagnosis: The same Procedure: Removal of 3 skin tags to left axilla, removal of perianal skin tag Surgeon: Erika Procedure: Left axilla 3 skin tags were identified I prepped him with alcohol. I injected 1% lidocaine plain. I remove them with electrocautery. Sterile dressings were applied. He tolerated this well. Perianal area had 1 skin tag on the left side cleaned this off with alcohol. Injected 1% lidocaine plain. I remove this with electrocautery. Sterile dressing was applied he tolerated this well. I did send the perianal skin tag off to make sure that this was not a verrucous lesion. The other skin tags in the left axillary area all had a typical smooth skin tag appearance. [facility] 08-30-2022 Note HNO ID: [id number] Author: Rylee Gibson LPN Service: ? Author Type: LICENSED NURSE Type: Progress Notes Filed: 08/30/2022 9:03 AM Note Text: UNIVERSAL PROTOCOL / SAFETY CHECKLIST Procedure to be Performed: removal of skin tags Sign In: A Moment of CARE was completed. Personnel directly involved with the procedure wore the appropriate PPE (Personal Protective Equipment). Patient/Surrogate Stated/Verified: PATIENT VERIFIED(optional for EMERGENT procedures): Patient name, Date of , Relevant allergies, and The intended procedure Time Out Communication: Intended patient and procedure match the source documents. Consent documented and matches the intended procedure. No relevant labs, photos, and/or imaging studies were applicable for review. Medications required for procedure verified. No fire risk assessment and interventions applicable. No implant(s) inserted. Sign Out: SIGN OUT (optional for EMERGENT procedures): No specimen collected. No instruments, equipment or retained foreign bodies applicable. Post-procedure follow-up management communicated and Plan of Care Visit completed when applicable. Rylee Gibson LPN [facility] 08-22-2022 Miscellaneous Notes Updated patient via [employer], does NOT need to stop Aspirin for procedure. Called patient and unable to leave message Voice mail is full, Patient does NOT need to stop Aspirin for procedure. Patient calling to cancel upcoming appointment with Dr. James for skin tag removal and biopsy. Patient states that the Physicians in his Heart and Vascular group told him to postpone it for a few months due to the fact that they do not want him stopping his Aspirin at this time. Per plan from previous appointment with Dr. James it states that he will remain on his anticoagulation. Please advise patient if it is okay to still perform the biopsy, otherwise the appointment can be canceled. documented in this encounter [facility] 08-12-2022 Miscellaneous Notes Pt called and is notified of providers results and instructions. Pt voices understanding. He states Cinthya from Dr Bower put him on a Prednisone taper and he feels so much better. Diana Chong RN Pfts show possible mild asthma. If cough does not improve before next ov, may consider lung meds. documented in this encounter [facility] 08-11-2022 Miscellaneous Notes Agree on sugars. The a1c will help to figure it out. Hard to say on pfts. They are not read yet. Wait and see what they show. Patient's call and notified of results and provider instructions. voiced understanding. calling to let provider know that patient had appointment in Dr. Cervantes's office on Monday. At appointment patient had wheezing and chest tightness. A chest x ray was ordered, and chest xray was fine. Patient was sent in prescription for prednisone. Patient had taken 40 mg on Monday and 40 mg on Monday. Patient is not wheezing or coughing now. worried now that having the prednisone would effect the pulmonary function tests that were done yesterday and not give an accurate reading. Patient's blood sugars also may be elevated due to this. will have patient come back in for hgb a1c. Please review and advise, Anel Morales RN Labs are much better. Sugars are up at 116. Check a1c documented in this encounter [facility] 08-05-2022 Instructions Pacheco Kuhn MD - 08/05/2022 9:05 AM EST Take lisinopril at bedtime and call or my chart bp list in one week. documented in this encounter [facility] 08-05-2022 History of Present illness Narrative Patient presents with: Establish Care HPI: Patient presents today for office visit for follow up. Previous patient of Dr. Franco. Wishes to establish care. See Dr. Franco's appt. Patient admitted to [facility] from 07/16 to 07/19 for NSTEMI due to mid LAD lesion after presenting with left shoulder pain with worsening WHEAT x 1 year. Initial troponin was elevated at 253 with serial troponin going to 998 and 2011. EKG showed sinus bradycardia @ 55 bpm. D dimer elevated but CTA chest negative for PE. Started on ASA and heparin drip. Admitted and underwent cardiac cath on 07/18 which showed ruptured plaque in mid LAD about 70% which required PCI and stent. 2D echo showed EF 55% with mild TR. Added Brillinta and low dose Lisinopril. Discharged home with recommendation to f/u with cardiology, monitor BP, consider adding Metoprolol succinate 12.5 mg if BP will allow. Cardiology follow up scheduled for 08/08/22 Dr. Bower. HTN: Checking BP at home daily. Consistently high in morning before meds. Complaints of headaches. Denies dizziness. Feels weak. No syncope. Edema has gotten better. Denies chest pain. Refers to chest sensations since stent placement. Having twinges currently. Does have shortness of breath. Restrictions at work. Has not been doing any heavy lifting. Would like to start skiing. Has lost 16 lbs since AL. Has not been eating as much. Will be starting cardiac rehab after cardac eval. Has been getting what he thinks is carpal tunnel. Has had issues to left wrist and elbow. Has been worse on the left than right. Is actually more pain in his wrist. No definite numbness or weakness. No trauma. Has pain in medial side of wrist. Carry's meat regularly. Worse with deer season. Has skin tags. Has one in the rectal area. Is unsure if could be an external hemorrhoid. Has noted occasional bleeding when he wipes in the area. Can itch. No current issues with irritation. Has had his knee scoped in the past. His left has started to act up and is better with weight loss. Has a chronic cough. Takes whitney. Has reflux.is on nexium. Has done xrays in the recent past Is on an bladimir but predates the medication. Has been there for years. MEDICATIONS: Current Outpatient Medications Medication Sig BRILINTA 90 mg tablet Take 90 mg by mouth twice daily. nitroglycerin sublingual (NITROQUICK) 0.4 mg SL tablet DISSOLVE 1 TABLET UNDER THE TONGUE NEEDED FOR CHEST PAIN- MAY REPEAT EVERY 5 MINUTES IF NEEDED ( MAX 3 DOSES.- IF NO RELIEF CALL 911) aspirin, enteric coated (ASPIRIN, ENTERIC COATED) 81 mg EC tablet Take 81 mg by mouth daily with breakfast. lisinopril (ZESTRIL, PRINIVIL) 5 mg tablet Take 5 mg by mouth once daily. metoprolol succinate ER (TOPROL XL) 25 mg 24 hr tablet TAKE 1/2 (ONE-HALF) OF A TABLET BY MOUTH ONCE DAILY for 60 days, hold for heart rate less than 60 or systolic blood pressure less than 100mmHg triamcinolone acetonide (KENALOG) 0.1 % cream Apply 1 application to affected area twice daily. Apply sparingly to area for rash/itching. Use for 2 weeks and then stop testosterone cypionate (DEPO-TESTOSTERONE) 200 mg/mL injection inject 1ml intramuscularly every 4 weeks esomeprazole (NEXIUM) 40 mg capsule Take 1 capsule by mouth once daily. diclofenac (VOLTAREN) 1 % topical gel Apply 2 g to affected area twice daily as needed. tamsulosin (FLOMAX) 0.4 mg Take 1 capsule by mouth daily at bedtime. rosuvastatin (CRESTOR) 20 mg tablet Take 1 tablet by mouth daily at bedtime. ferrous sulfate 325 mg (65 mg iron) tablet Take 1 tablet by mouth twice daily with meals. COMPOUNDED PRESCRIPTION CMC Push Brace to be used daily as directed. Compression Knee Highs KNEE HIGH COMPRESSION STOCKINGS 20-30 MM. DX: EDEMA, varicose veins hqllpdnt-fxg-OW-lycopen-lutein (CENTRUM SILVER MEN) 300-600-300 mcg tab Take 1 tablet by mouth once daily. No current facility-administered medications for this visit. ALLERGIES: ALLERGIES Allergen Reactions Baycol [Other] Intolerance leg cramps Environmental Aller* Cockroaches, trees, weeds Erythromycin Intolerance GI upset Lipitor [Atorvastat* Intolerance leg pain,weakness Niaspan [Niacin] Hives Penicillins Hives hives PAST MEDICAL HISTORY Diagnosis Date Arthritis Benign neoplasm of rectum and anal canal Seeing Dr. Falcon CAD (coronary artery disease) 70% LAD s/p PCI and stent x1, Dr. Bower Enthesopathy of hip region Esophageal reflux Generalized anxiety disorder High cholesterol Hypogonadism in male Internal hemorrhoids without mention of complication Neuroma LEFT FOOT NSTEMI (non-ST elevated myocardial infarction) (HCC) Other and unspecified hyperlipidemia Umbilical hernia without mention of obstruction or gangrene Varicose veins Vitamin D insufficiency PAST SURGICAL HISTORY Procedure Laterality Date ARTHROSCOPY KNEE DIAGNOSTIC W/WO SYNOVIAL BX SPX Arthroscopy, knee, BILAT COLONOSCOPY FLX DX W/COLLJ SPEC WHEN PFRMD 12/10/2020 COLONOSCOPY W/BIOPSY SINGLE/MULTIPLE 11/05/2010 ESOPHAGOGASTRODUODENOSCOPY TRANSORAL DIAGNOSTIC 11/17/2000 EGD ESOPHAGOGASTRODUODENOSCOPY TRANSORAL DIAGNOSTIC 09/06/2005 EGD ESOPHAGOGASTRODUODENOSCOPY TRANSORAL DIAGNOSTIC 12/10/2020 EXCISION NEUROMA, DIGIT NERVE EACH ADDL 06/2009 Bilateral feet EYE SURGERY HX FRACTURE SURGERY HEMORRHOID SURGERY HX [id number] Guttman HERNIA REPAIR HX PAST SURGICAL HISTORY OF 06/2002 left wrist and left elbow PAST SURGICAL HISTORY OF 05/2009 Varicose vein stripping PAST SURGICAL HISTORY OF 02/22/2019 left foot fracture/dislocation repair. Dr. Kirk PAST SURGICAL HISTORY OF Left 07/2019 Removal of screw from left ankle with placement of Tightrope implant. RPR UMBILICAL HRNA 5 YRS/> REDUCIBLE 04/03/2009 SKIN BIOPSY HX TONSILLECTOMY HX TONSILLECTOMY PRIMARY/SECONDARY <AGE 12 Tonsillectomy FAMILY HISTORY Problem Relation Age of Onset Alzheimer's Disease Father Coronary Artery Disease Mother Heart Mother other (stomach problems) Mother open heart surgery,ashd,diabetes Cataract Maternal Grandfather Cataract Paternal Grandmother Cataract Paternal Grandfather other (obese) Sister Social History Tobacco Use Smoking status: Never Smokeless tobacco: Never Vaping Use Vaping Use: Never used Substance Use Topics Alcohol use: Yes Comment: ocassional Drug use: No Reviewed current medications, allergies, past medical history, surgical history, family history and social history today. REVIEW OF SYSTEMS All other reviewed and negative other than HPI. HEALTH MAINTENANCE: Reviewed health maintenance issues today and recommended the following in detail. ADVANCE DIRECTIVE DISCUSSION Never done DEPRESSION ASSESSMENT due on 07/31/2022 VITALS: BP 106/76 Pulse 73 Ht 177.8 cm (5' 10 ) Wt 93 kg (205 lb) SpO2 97% BMI 29.41 kg/m Last 4 Encounter Wt Readings: Date: Wt: 07/30/2022 93.3 kg (205 lb 9.6 oz) 07/27/2022 93.9 kg (207 lb) 05/03/2022 98.7 kg (217 lb 9.6 oz) 05/02/2022 96.4 kg (212 lb 9.6 oz) PHYSICAL EXAMINATION: General appearance: Well appearing, alert, in no acute distress, well-hydrated, well nourished. Skin: Skin tags in left axilla. Has a pedunculated lesion on left inner buttock. Head: Normocephalic, no masses, lesions, tenderness or abnormalities Back: Normal exam Lungs: Lungs clear to auscultation. No wheezing, rhonchi, rales Heart: RRR without murmur, gallop, or rubs. No ectopy Abdomen: Normal abdominal exam, Abdomen soft, non-tender. Bowel sounds normal. No masses, organomegaly Extremities: No deformities, edema, skin discoloration, clubbing or cyanosis. Good capillary refill. Musculoskeletal: No joint swelling, deformity, or tenderness ASSESSMENT/PLAN: 1. Mixed hyperlipidemia - ICD9: 272.2, ICD10: E78.2 (primary diagnosis) - good control - Continue current medication. - COMP METABOLIC PANEL - LIPID PANEL BASIC 2. NSTEMI (non-ST elevated myocardial infarction) (HCC) - ICD9: 410.70, ICD10: I21.4 - monitor bp and let us know how doing. See cardiology 3. Left wrist pain - ICD9: 719.43, ICD10: M25.532 - XR WRIST GENERAL 3V PA/LAT/OBL LEFT 4. Cough, unspecified type - ICD9: 786.2, ICD10: R05.9 - add pepcid. Discussed risks and benefits of new medication with the patient. Advised them to call if any side effects or questions. - SPIROMETRY WITH DILATOR IF OBSTRUCTED - LUNG DIFFUSION CAPACITY (DLCO) - LUNG VOLUMES 5. Rectal lesion - ICD9: 569.49, ICD10: K62.9 - CONSULT TO GENERAL SURGERY Pacheco Kuhn documented in this encounter [facility] 07-30-2022 History of Present illness Narrative Subjective Cough Pertinent negatives include no chills, no sore throat, no myalgias and no shortness of breath. Ketan Cordero is a 66 year old male who presents with a cough that he has had for ages . He states it has been worse in the past few days. He had AL on 07/16 and stent placement on 07/19. 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 He has taken Whitney which has not helped. States the cough primarily bothers him when he tries to eat or when he is active. He has not had fever. He has has some associated sinus drainage. Review of Systems Constitutional: Negative for chills and fever. HENT: Positive for congestion. Negative for sore throat. Respiratory: Positive for cough. Negative for sputum production and shortness of breath. Cardiovascular: Negative. Musculoskeletal: Negative for myalgias. BP 110/78 Pulse 75 Temp 36.5 C (97.7 F) (Tympanic) Resp 18 Wt 93.3 kg (205 lb 9.6 oz) SpO2 98% BMI 29.50 kg/m PAST MEDICAL HISTORY Diagnosis Date Arthritis Benign neoplasm of rectum and anal canal Seeing Dr. Falcon CAD (coronary artery disease) 70% LAD s/p PCI and stent x1, Dr. Bower Enthesopathy of hip region Esophageal reflux Generalized anxiety disorder High cholesterol Hypogonadism in male Internal hemorrhoids without mention of complication Neuroma LEFT FOOT NSTEMI (non-ST elevated myocardial infarction) (HCC) Other and unspecified hyperlipidemia Umbilical hernia without mention of obstruction or gangrene Varicose veins Vitamin D insufficiency PAST SURGICAL HISTORY Procedure Laterality Date ARTHROSCOPY KNEE DIAGNOSTIC W/WO SYNOVIAL BX SPX Arthroscopy, knee, BILAT COLONOSCOPY FLX DX W/COLLJ SPEC WHEN PFRMD 12/10/2020 COLONOSCOPY W/BIOPSY SINGLE/MULTIPLE 11/05/2010 ESOPHAGOGASTRODUODENOSCOPY TRANSORAL DIAGNOSTIC 11/17/2000 EGD ESOPHAGOGASTRODUODENOSCOPY TRANSORAL DIAGNOSTIC 09/06/2005 EGD ESOPHAGOGASTRODUODENOSCOPY TRANSORAL DIAGNOSTIC 12/10/2020 EXCISION NEUROMA, DIGIT NERVE EACH ADDL 06/2009 Bilateral feet EYE SURGERY HX FRACTURE SURGERY HEMORRHOID SURGERY HX [id number] Guttman HERNIA REPAIR HX PAST SURGICAL HISTORY OF 06/2002 left wrist and left elbow PAST SURGICAL HISTORY OF 05/2009 Varicose vein stripping PAST SURGICAL HISTORY OF 02/22/2019 left foot fracture/dislocation repair. Dr. Kirk PAST SURGICAL HISTORY OF Left 07/2019 Removal of screw from left ankle with placement of Tightrope implant. RPR UMBILICAL HRNA 5 YRS/> REDUCIBLE 04/03/2009 SKIN BIOPSY HX TONSILLECTOMY HX TONSILLECTOMY PRIMARY/SECONDARY <AGE 12 Tonsillectomy ALLERGIES Baycol [Other], Environmental Allergies [Other], Erythromycin, Lipitor [Atorvastatin Calcium], Niaspan [Niacin], and Penicillins MEDICATIONS nitroglycerin sublingual (NITROQUICK) 0.4 mg SL tablet DISSOLVE 1 TABLET UNDER THE TONGUE NEEDED FOR CHEST PAIN- MAY REPEAT EVERY 5 MINUTES IF NEEDED ( MAX 3 DOSES.- IF NO RELIEF CALL 911) aspirin, enteric coated (ASPIRIN, ENTERIC COATED) 81 mg EC tablet Take 81 mg by mouth daily with breakfast. lisinopril (ZESTRIL, PRINIVIL) 5 mg tablet Take 5 mg by mouth once daily. metoprolol succinate ER (TOPROL XL) 25 mg 24 hr tablet TAKE 1/2 (ONE-HALF) OF A TABLET BY MOUTH ONCE DAILY for 60 days, hold for heart rate less than 60 or systolic blood pressure less than 100mmHg triamcinolone acetonide (KENALOG) 0.1 % cream Apply 1 application to affected area twice daily. Apply sparingly to area for rash/itching. Use for 2 weeks and then stop testosterone cypionate (DEPO-TESTOSTERONE) 200 mg/mL injection inject 1ml intramuscularly every 4 weeks esomeprazole (NEXIUM) 40 mg capsule Take 1 capsule by mouth once daily. diclofenac (VOLTAREN) 1 % topical gel Apply 2 g to affected area twice daily as needed. tamsulosin (FLOMAX) 0.4 mg Take 1 capsule by mouth daily at bedtime. rosuvastatin (CRESTOR) 20 mg tablet Take 1 tablet by mouth daily at bedtime. ferrous sulfate 325 mg (65 mg iron) tablet Take 1 tablet by mouth twice daily with meals. COMPOUNDED PRESCRIPTION CMC Push Brace to be used daily as directed. Compression Knee Highs KNEE HIGH COMPRESSION STOCKINGS 20-30 MM. DX: EDEMA, varicose veins eyzbkcba-fyp-UR-lycopen-lutein (CENTRUM SILVER MEN) 300-600-300 mcg tab Take 1 tablet by mouth once daily. FAMILY HISTORY Problem Relation Age of Onset Alzheimer's Disease Father Coronary Artery Disease Mother Heart Mother other (stomach problems) Mother open heart surgery,ashd,diabetes Cataract Maternal Grandfather Cataract Paternal Grandmother Cataract Paternal Grandfather other (obese) Sister Social History Tobacco Use Smoking status: Never Smokeless tobacco: Never Vaping Use Vaping Use: Never used Substance Use Topics Alcohol use: Yes Comment: ocassional Drug use: No Objective Physical Exam Vitals and nursing note reviewed. Constitutional: Appearance: Normal appearance. HENT: Right Ear: Tympanic membrane, ear canal and external ear normal. Left Ear: Tympanic membrane, ear canal and external ear normal. Nose: Mucosal edema and rhinorrhea present. Mouth/Throat: Mouth: Mucous membranes are moist. Pharynx: Oropharynx is clear. Uvula midline. No oropharyngeal exudate or posterior oropharyngeal erythema. Cardiovascular: Rate and Rhythm: Normal rate and regular rhythm. Heart sounds: Normal heart sounds. Pulmonary: Effort: Pulmonary effort is normal. No respiratory distress. Breath sounds: Normal breath sounds. No wheezing or rales. Musculoskeletal: Cervical back: Neck supple. Lymphadenopathy: Cervical: No cervical adenopathy. Skin: General: Skin is warm and dry. Findings: No erythema or rash. Neurological: Mental Status: He is alert. ASSESSMENT/PLAN: 1. Chronic cough - ICD9: 786.2, ICD10: R05.3 - recommend using flonase nasal spray and benadryl which may provide symptomatic relief for your chronic cough. Clarisse Reynolds APRN.CNP documented in this encounter [facility] 07-30-2022 Instructions Clarisse Reynolds APRN.CNP - 07/30/2022 12:49 PM EST ASSESSMENT/PLAN: 1. Chronic cough - ICD9: 786.2, ICD10: R05.3 - recommend using flonase nasal spray and benadryl which may provide symptomatic relief for your chronic cough. Clarisse Reynolds APRN.CNP documented in this encounter [facility] 07-27-2022 History of Present illness Narrative Chief Complaint No chief complaint on file. HPI Ketan Cordero is a 66 year old male who presents here today for Hospital Discharge Follow up.. Patient admitted to [facility] from 07/16 to 07/19 for NSTEMI due to mid LAD lesion after presenting with left shoulder pain with worsening WHEAT x 1 year. Initial troponin was elevated at 253 with serial troponin going to 998 and 2011. EKG showed sinus bradycardia @ 55 bpm. D dimer elevated but CTA chest negative for PE. Started on ASA and heparin drip. Admitted and underwent cardiac cath on 07/18 which showed ruptured plaque in mid LAD about 70% which required PCI and stent. 2D echo showed EF 55% with mild TR. Added Brillinta and low dose Lisinopril. Discharged home with recommendation to f/u with cardiology, monitor BP, consider adding Metoprolol succinate 12.5 mg if BP will allow. Since discharge, he states that he still has some SOB and intermittent right and left sided chest pain. States that the pain in his chest comes on when he is stressed out. Does not get chest pain when he is up walking and has been trying to avoid exertion in general. Did have some WHEAT while helping put on boots for grandchildren. Took Nitro x 1 which did resolve his symptoms. Called Dr. Bower's office about these symptoms 24 hours after discharge and was told this was to be expected and should keep his follow up appointment on 07/08. Taking medications as prescribed without side effects. Started his metoprolol Succinate 3 days ago because he did not know that this was sent. Taking 5 mg of lisinopril instead of 2.5. Rx written for 5 mg daily. Carries nitro with him. Denies palpitations, LE edema, nausea, vomiting, diarrhea. . Past medical history, appointments, medications, allergies reviewed. Previous Medical History PAST MEDICAL HISTORY Diagnosis Date Arthritis Benign neoplasm of rectum and anal canal Seeing Dr. Falcon Enthesopathy of hip region Esophageal reflux Generalized anxiety disorder High cholesterol Hypogonadism in male Internal hemorrhoids without mention of complication Neuroma LEFT FOOT Other and unspecified hyperlipidemia Umbilical hernia without mention of obstruction or gangrene Varicose veins Vitamin D insufficiency Previous Surgical History PAST SURGICAL HISTORY Procedure Laterality Date ARTHROSCOPY KNEE DIAGNOSTIC W/WO SYNOVIAL BX SPX Arthroscopy, knee, BILAT COLONOSCOPY FLX DX W/COLLJ SPEC WHEN PFRMD 12/10/2020 COLONOSCOPY W/BIOPSY SINGLE/MULTIPLE 11/05/2010 ESOPHAGOGASTRODUODENOSCOPY TRANSORAL DIAGNOSTIC 11/17/2000 EGD ESOPHAGOGASTRODUODENOSCOPY TRANSORAL DIAGNOSTIC 09/06/2005 EGD ESOPHAGOGASTRODUODENOSCOPY TRANSORAL DIAGNOSTIC 12/10/2020 EXCISION NEUROMA, DIGIT NERVE EACH ADDL 06/2009 Bilateral feet EYE SURGERY HX FRACTURE SURGERY HEMORRHOID SURGERY HX [id number] Guttman HERNIA REPAIR HX PAST SURGICAL HISTORY OF 06/2002 left wrist and left elbow PAST SURGICAL HISTORY OF 05/2009 Varicose vein stripping PAST SURGICAL HISTORY OF 02/22/2019 left foot fracture/dislocation repair. Dr. Kirk PAST SURGICAL HISTORY OF Left 07/2019 Removal of screw from left ankle with placement of Tightrope implant. RPR UMBILICAL HRNA 5 YRS/> REDUCIBLE 04/03/2009 SKIN BIOPSY HX TONSILLECTOMY HX TONSILLECTOMY PRIMARY/SECONDARY <AGE 12 Tonsillectomy Family History FAMILY HISTORY Problem Relation Age of Onset Alzheimer's Disease Father Coronary Artery Disease Mother Heart Mother other (stomach problems) Mother open heart surgery,ashd,diabetes Cataract Maternal Grandfather Cataract Paternal Grandmother Cataract Paternal Grandfather other (obese) Sister Patient Allergies ALLERGIES Allergen Reactions Baycol [Other] Intolerance leg cramps Environmental Aller* Cockroaches, trees, weeds Erythromycin Intolerance GI upset Lipitor [Atorvastat* Intolerance leg pain,weakness Niaspan [Niacin] Hives Penicillins Hives hives Current Medications Current Outpatient Medications on File Prior to Visit Medication Sig testosterone cypionate (DEPO-TESTOSTERONE) 200 mg/mL injection inject 1ml intramuscularly every 4 weeks esomeprazole (NEXIUM) 40 mg capsule Take 1 capsule by mouth once daily. diclofenac (VOLTAREN) 1 % topical gel Apply 2 g to affected area twice daily as needed. tamsulosin (FLOMAX) 0.4 mg Take 1 capsule by mouth daily at bedtime. rosuvastatin (CRESTOR) 20 mg tablet Take 1 tablet by mouth daily at bedtime. ferrous sulfate 325 mg (65 mg iron) tablet Take 1 tablet by mouth twice daily with meals. naproxen (NAPROSYN) 500 mg tablet Take 1 tablet by mouth twice daily as needed (for pain/inflammation). Take with food. COMPOUNDED PRESCRIPTION CMC Push Brace to be used daily as directed. Compression Knee Highs KNEE HIGH COMPRESSION STOCKINGS 20-30 MM. DX: EDEMA, varicose veins qagvahzu-iof-KG-lycopen-lutein (CENTRUM SILVER MEN) 300-600-300 mcg tab Take 1 tablet by mouth once daily. No current facility-administered medications on file prior to visit. Social History Social History Tobacco Use Smoking status: Never Smokeless tobacco: Never Vaping Use Vaping Use: Never used Substance Use Topics Alcohol use: Yes Comment: ocassional Drug use: No Review of Symptoms REVIEW OF SYSTEMS GENERAL: No weight loss, malaise or fevers RESPIRATORY: Cough yesterday which improved CARDIOVASCULAR: See HPI GI: No nausea, vomiting, or diarrhea SKIN: Itchy rash on right greer EXAM: BP 112/70 Pulse 85 Resp 16 Wt 93.9 kg (207 lb) SpO2 98% BMI 29.70 kg/m General Appearance: Well appearing, alert, in no acute distress, well-hydrated, well nourished.. Skin: Tennis ball sized area of eczema on right mid greer with excoriations. No plaque or cellulitis. Lungs: Lungs clear to auscultation. No wheezing, rhonchi, rales.. Heart: Regular rate with occasional skipped beat. No RGM. Abdomen: Normal abdominal exam, Abdomen soft, non-tender. Bowel sounds normal. No masses, organomegaly. Extremities: No deformities, edema, skin discoloration, clubbing or cyanosis. Good capillary refill. . Health Maintenance List ADVANCE DIRECTIVE DISCUSSION Never done DEPRESSION ASSESSMENT Never done DIABETES SCREEN due on 02/07/2025 COLORECTAL CANCER SCREENING due on 12/10/2025 LIPID SCREEN due on 02/07/2027 PROSTATE CANCER SCREENING DISCUSSION due on 02/09/2027 DTAP,TDAP,TD(3 - Td or Tdap) due on 07/16/2027 INFLUENZA Completed HEPATITIS C SCREENING Completed SHINGRIX VACCINE Completed COVID-19 VACCINE Completed PNEUMOCOCCAL: 65+ Completed EKG: NSR at 71 bpm, LAD, minimal voltage criteria for LVH, may be normal variant. Abnormal EKG. ASSESSMENT/PLAN: 1. NSTEMI (non-ST elevated myocardial infarction) (HCC) - ICD9: 410.70, ICD10: I21.4 (primary diagnosis) S/p PCI and stent. Patient states he continues to have some intermittent chest pain and WHEAT. Did require nitro x1 since discharge which resolved his chest pain with exertion. Continue ASA, Brillinta, lisinopril 5 mg, metoprolol succinate, and statin. EKG today shows no ischemia. No LVH noted on echo while in patient. Will have patient continue nitro PRN and Red flags for re-assessment reviewed with patient in detail. Will fax this note and EKG to Dr. Bower's office. - ECG COMPLETE 2. Chest pain due to myocardial ischemia, unspecified ischemic chest pain type - ICD9: 786.50, ICD10: I25.9 See above. 3. WHEAT (dyspnea on exertion) - ICD9: 786.09, ICD10: R06.09 See above 4. Eczema, unspecified type - ICD9: 692.9, ICD10: L30.9 - Topical steriod tx with Rx for steriod cream/ointment- see orders - discussed skin care of rash - follow up if symptoms persist or worsen. - TRIAMCINOLONE ACETONIDE 0.1 % TOPICAL CREAM I spent a total of 40 minutes on the date of the service which included preparing to see the patient, [id number] patient care, completing clinical documentation, obtaining and/or reviewing separately obtained history, performing a medically appropriate examination, counseling and educating the patient/family/caregiver, ordering medications, tests, or procedures, communicating with other HCPs (not separately reported), and independently interpreting results (not separately reported). Yousif Franco MD documented in this encounter [facility] 05-19-2022 History of Present illness Narrative HISTORY AND PHYSICAL Ketan Cordero 1955 REFERRING PHYSICIAN: Josefina Stokes APRN.C* CHIEF COMPLAINT: Consult (+Fecal occult blood) HPI: The patient is a 66 year old male with a complaint of positive fecal blood test. Patient stated that his healthcare system made him get a stool sample which came back positive for blood. He had a colonoscopy on 12/10/2020. This was negative. It did show hemorrhoids. He has not noticed any bleeding.. The patient is being seen by me today at the request of Dr. Stokes for my opinion and advice regarding Positive fecal occult blood test. PAST MEDICAL HISTORY Diagnosis Date Arthritis Benign neoplasm of rectum and anal canal Seeing Dr. Falcon Enthesopathy of hip region Esophageal reflux Generalized anxiety disorder High cholesterol Hypogonadism in male Internal hemorrhoids without mention of complication Neuroma LEFT FOOT Other and unspecified hyperlipidemia Umbilical hernia without mention of obstruction or gangrene Varicose veins Vitamin D insufficiency PAST SURGICAL HISTORY Procedure Laterality Date ARTHROSCOPY KNEE DIAGNOSTIC W/WO SYNOVIAL BX SPX Arthroscopy, knee, BILAT COLONOSCOPY FLX DX W/COLLJ SPEC WHEN PFRMD 12/10/2020 COLONOSCOPY W/BIOPSY SINGLE/MULTIPLE 11/05/2010 ESOPHAGOGASTRODUODENOSCOPY TRANSORAL DIAGNOSTIC 11/17/2000 EGD ESOPHAGOGASTRODUODENOSCOPY TRANSORAL DIAGNOSTIC 09/06/2005 EGD ESOPHAGOGASTRODUODENOSCOPY TRANSORAL DIAGNOSTIC 12/10/2020 EXCISION NEUROMA, 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 Dr. Kirk PAST SURGICAL HISTORY OF Left 07/2019 Removal of screw from left ankle with placement of Tightrope implant. RPR UMBILICAL HRNA 5 YRS/> REDUCIBLE 04/03/2009 SKIN BIOPSY HX TONSILLECTOMY HX TONSILLECTOMY PRIMARY/SECONDARY <AGE 12 Tonsillectomy Current Outpatient Medications Medication Sig testosterone cypionate (DEPO-TESTOSTERONE) 200 mg/mL injection inject 1ml intramuscularly every 4 weeks esomeprazole (NEXIUM) 40 mg capsule Take 1 capsule by mouth once daily. diclofenac (VOLTAREN) 1 % topical gel Apply 2 g to affected area twice daily as needed. tamsulosin (FLOMAX) 0.4 mg Take 1 capsule by mouth daily at bedtime. rosuvastatin (CRESTOR) 20 mg tablet Take 1 tablet by mouth daily at bedtime. ferrous sulfate 325 mg (65 mg iron) tablet Take 1 tablet by mouth twice daily with meals. naproxen (NAPROSYN) 500 mg tablet Take 1 tablet by mouth twice daily as needed (for pain/inflammation). Take with food. COMPOUNDED PRESCRIPTION CMC Push Brace to be used daily as directed. Compression Knee Highs KNEE HIGH COMPRESSION STOCKINGS 20-30 MM. DX: EDEMA, varicose veins xycmfkjc-dxg-YO-lycopen-lutein (CENTRUM SILVER MEN) 300-600-300 mcg tab Take 1 tablet by mouth once daily. No current facility-administered medications for this visit. ALLERGIES: Baycol [Other], Environmental Allergies [Other], Erythromycin, Lipitor [Atorvastatin Calcium], Niaspan [Niacin], and Penicillins PERSONAL HISTORY: Social History Tobacco Use Smoking status: Never Smokeless tobacco: Never Vaping Use Vaping Use: Never used Substance Use Topics Alcohol use: Yes Comment: ocassional Drug use: No FAMILY HISTORY: FAMILY HISTORY Problem Relation Age of Onset Alzheimer's Disease Father Coronary Artery Disease Mother Heart Mother other (stomach problems) Mother open heart surgery,ashd,diabetes Cataract Maternal Grandfather Cataract Paternal Grandmother Cataract Paternal Grandfather other (obese) Sister REVIEW OF SYMPTOMS: The review of systems data was entered by the nurse and reviewed by de Nursing Notes: Kailyn Akbar RN 05/03/2022 2:18 PM Signed REVIEW OF SYSTEMS: General: The patient denies fatigue, denies weight loss, denies weight gain, denies feeling hot, and denies feelings of cold. Eyes: The patient denies glaucoma, denies eye injury/surgery, does not wear glasses or contacts. Ear/Nose/Throat: The patient NOTES allergies, denies hayfever, denies ear infections, and denies bloody noses. Cardiovascular: The patient denies chest pain, denies heart disease, denies high blood pressure,denies cardiac stent, denies prior heart attack, denies irregular heart beat, NOTES high cholesterol, denies poor circulation, denies heart failure, other cardiac issues, denies claudication, denies cold feet, denies peripheral arterial stent. Respiratory: The patient denies tuberculosis, denies pneumonia, denies frequent cough, denies pulmonary embolism, denies shortness of breath, and denies coughing up blood. Gastrointestinal: The patient denies difficulty swallowing, NOTES acid reflux, denies ulcers, denies vomiting, denies jaundice/hepatitis, denies gallbladder problems, denies black or tarry stools, NOTES hemorrhoids, NOTES bleeding from rectum, denies diverticulitis, denies constipation, denies diarrhea, denies loss of stool control, and denies hernias. Kidney/Bladder: The patient denies kidney stones, denies urine infections, and denies bloody urine. Skin: The patient denies a history of skin cancer, denies bleeding/changing moles, and denies a history of skin rash. Neurologic: The patient denies a history of epilepsy/convulsions, denies headaches, NOTES head/spinal injuries, and denies stroke/TIA. Psychiatric: The patient denies psychiatric medications, denies depression, and denies voices, denies substance abuse. Endocrine: The patient denies thyroid disorders, denies diabetes, and denies hormonal problems. Hematologic: The patient denies a history of bruising, denies bleeding, and denies anemia, denies blood clots. Infections: The patient NOTES a history of measles and mumps, denies rheumatic fever, and denies sexually transmitted diseases. Musculoskeletal: The patient NOTES back pain/injury, denies back problems, denies sciatica, NOTES knee/foot trouble, denies arthritis, or denies gout. When was patient's last Mammogram screening? N/A Last Colonoscopy: 2020 Kailyn Akbar RN PHYSICAL EXAMINATION: General: The patient is 66 year old male, well nourished, well hydrated in no acute distress. The patient is oriented to time, place, and person. VITALS: Blood pressure 126/82, pulse 81, temperature 36.6 C (97.9 F), height 177.8 cm (5' 10 ), weight 98.7 kg (217 lb 9.6 oz), SpO2 98 %. HEENT: Normal cephalic, ataumatic, pupils are equally round, sclera are anicteric, mucous membranes are moist, oropharynx is clear. Neck has no masses, asymmetry or lymphadenopathy. Thyroid is unremarkable. Respiratory: Clear to auscultation and percussion. Normal respiratory excursion and pattern. Cardiac: Examination is regular rate and rhythm. Abdominal exam: Soft, nontender, with no palpable masses. No hepatosplenomegaly. No palpable hernias. Rectal exam: exam deferred Extremities: no clubbing, cyanosis or edema. No adenopathy. Other: LABORATORY VALUES: As Noted RADIOLOGIC STUDIES: As Noted Assessment IMPRESSION: Positive fecal occult blood test PLAN: I am not quite sure why they ordered a fecal blood test. I do not think it was indicated. Nevertheless we have positive findings. I reviewed the colonoscopy report and have reviewed the images. I have offered the patient repeating his colonoscopy but at this time he is going to opt not to do anything. I do not think this is a long thing to do. He has significant hemorrhoidal disease. He had a good colonoscopy. He had a tubular adenoma of the descending colon which was completely excised and at this point is waiting for his 5-year follow-up endoscopy which for all intents and purposes is probably the appropriate thing to do. Diagnoses: (R19.5) Positive fecal occult blood test My findings have been communicated to Dr. Stokes via shared medical record. This note will be forwarded to Dr. Yousif Franco MD. Return to Clinic: The patient is instructed to follow-up with me in 4 year. Christopher James III, MD documented in this encounter [facility] 05-03-2022 Nurse Note REVIEW OF SYSTEMS: General: The patient denies fatigue, denies weight loss, denies weight gain, denies feeling hot, and denies feelings of cold. Eyes: The patient denies glaucoma, denies eye injury/surgery, does not wear glasses or contacts. Ear/Nose/Throat: The patient NOTES allergies, denies hayfever, denies ear infections, and denies bloody noses. Cardiovascular: The patient denies chest pain, denies heart disease, denies high blood pressure,denies cardiac stent, denies prior heart attack, denies irregular heart beat, NOTES high cholesterol, denies poor circulation, denies heart failure, other cardiac issues, denies claudication, denies cold feet, denies peripheral arterial stent. Respiratory: The patient denies tuberculosis, denies pneumonia, denies frequent cough, denies pulmonary embolism, denies shortness of breath, and denies coughing up blood. Gastrointestinal: The patient denies difficulty swallowing, NOTES acid reflux, denies ulcers, denies vomiting, denies jaundice/hepatitis, denies gallbladder problems, denies black or tarry stools, NOTES hemorrhoids, NOTES bleeding from rectum, denies diverticulitis, denies constipation, denies diarrhea, denies loss of stool control, and denies hernias. Kidney/Bladder: The patient denies kidney stones, denies urine infections, and denies bloody urine. Skin: The patient denies a history of skin cancer, denies bleeding/changing moles, and denies a history of skin rash. Neurologic: The patient denies a history of epilepsy/convulsions, denies headaches, NOTES head/spinal injuries, and denies stroke/TIA. Psychiatric: The patient denies psychiatric medications, denies depression, and denies voices, denies substance abuse. Endocrine: The patient denies thyroid disorders, denies diabetes, and denies hormonal problems. Hematologic: The patient denies a history of bruising, denies bleeding, and denies anemia, denies blood clots. Infections: The patient NOTES a history of measles and mumps, denies rheumatic fever, and denies sexually transmitted diseases. Musculoskeletal: The patient NOTES back pain/injury, denies back problems, denies sciatica, NOTES knee/foot trouble, denies arthritis, or denies gout. When was patient's last Mammogram screening? N/A Last Colonoscopy: 2020 Kailyn Akbar RN documented in this encounter [facility] 05-02-2022 History of Present illness Narrative 05/02/2022 Patient presents with: Discussion: Results of IFOBT SUBJECTIVE: This is a 66 year old that is here today for Above Complaints. [facility] came for a home health care visit. IFOBT completed through them and it was positive. Told him to follow-up with PCP Reports does have an external hemorrhoid or skin tag that gets irritated and bleeds at times. Also admits to straining to have a bowel movement at times but not very often. Had colonoscopy in November of 2020. Denies weight loss, abdominal pain, nausea, vomiting, hematochezia or melana PAST MEDICAL HISTORY Diagnosis Date Arthritis Benign neoplasm of rectum and anal canal Seeing Dr. Falcon Enthesopathy of hip region Esophageal reflux Generalized anxiety disorder High cholesterol Hypogonadism in male Internal hemorrhoids without mention of complication Neuroma LEFT FOOT Other and unspecified hyperlipidemia Umbilical hernia without mention of obstruction or gangrene Varicose veins Vitamin D insufficiency ALLERGIES Baycol [Other], Environmental Allergies [Other], Erythromycin, Lipitor [Atorvastatin Calcium], Niaspan [Niacin], and Penicillins MEDICATIONS Current Outpatient Medications Medication Sig testosterone cypionate (DEPO-TESTOSTERONE) 200 mg/mL injection inject 1ml intramuscularly every 4 weeks esomeprazole (NEXIUM) 40 mg capsule Take 1 capsule by mouth once daily. diclofenac (VOLTAREN) 1 % topical gel Apply 2 g to affected area twice daily as needed. tamsulosin (FLOMAX) 0.4 mg Take 1 capsule by mouth daily at bedtime. rosuvastatin (CRESTOR) 20 mg tablet Take 1 tablet by mouth daily at bedtime. ferrous sulfate 325 mg (65 mg iron) tablet Take 1 tablet by mouth twice daily with meals. naproxen (NAPROSYN) 500 mg tablet Take 1 tablet by mouth twice daily as needed (for pain/inflammation). Take with food. COMPOUNDED PRESCRIPTION CMC Push Brace to be used daily as directed. Compression Knee Highs KNEE HIGH COMPRESSION STOCKINGS 20-30 MM. DX: EDEMA, varicose veins pcjkdsds-xss-NR-lycopen-lutein (CENTRUM SILVER MEN) 300-600-300 mcg tab Take 1 tablet by mouth once daily. No current facility-administered medications for this visit. Medications and allergies reviewed by this provider. SOCIAL HISTORY Social History Tobacco Use Smoking status: Never Smokeless tobacco: Never Vaping Use Vaping Use: Never used Substance Use Topics Alcohol use: Yes Comment: ocassional Drug use: No REVIEW OF SYSTEMS All other reviewed and negative other than HPI. OBJECTIVE: BP 126/86 Pulse 61 Resp 16 Wt 96.4 kg (212 lb 9.6 oz) SpO2 96% BMI 31.40 kg/m . Vital signs reviewed by this provider. APPEARANCE Well appearing, alert, in no acute distress, well-hydrated, well nourished. ADVANCE DIRECTIVE DISCUSSION Never done DEPRESSION ASSESSMENT Never done DIABETES SCREEN due on 02/07/2025 COLORECTAL CANCER SCREENING due on 12/10/2025 LIPID SCREEN due on 02/07/2027 PROSTATE CANCER SCREENING DISCUSSION due on 02/09/2027 DTAP,TDAP,TD(3 - Td or Tdap) due on 07/16/2027 INFLUENZA Completed HEPATITIS C SCREENING Completed SHINGRIX VACCINE Completed COVID-19 VACCINE Completed PNEUMOCOCCAL: 65+ Completed ASSESSMENT/PLAN: 1. Positive fecal occult blood test - ICD9: 792.1, ICD10: R19.5 (primary diagnosis) - no red flag symptoms - red flag symptoms discussed - discussed different possibilities for positive iFOBT, however would still recommend colonoscopy, patient agreeable to see General Surgery - CONSULT TO GENERAL SURGERY 2. Encounter for immunization - ICD9: V03.89, ICD10: Z23 - PNEUMOCOCCAL VACCINE (PREVNAR 20) - [employer] COVID-19 BIVALENT BOOSTER VACCINE, AGE 12+ YR - INFLUENZA SEASONAL QUADRIVALENT HIGH DOSE AGE 65+ Josefina Podlogar, [employer].CLOTHING MAN Prescription instructions reviewed with patient as applicable. Patient advised if symptoms do not improve or if symptoms worsen sooner, to contact their primary care physician. Potential red flag symptoms discussed with the patient. Reviewed appropriate action plan to take if red flag symptoms occur. Patient agreeable to treatment plan. I spent a total of 25 minutes on the date of the service which included preparing to see the patient, [id number] patient care, completing clinical documentation, obtaining and/or reviewing separately obtained history, performing a medically appropriate examination, counseling and educating the patient/family/caregiver, and ordering medications, tests, or procedures. documented in this encounter [facility] 04-27-2022 Miscellaneous Notes Reviewed. Will discuss at appointment. Josefina Stokes APRN.CNP Patient telephoned and made aware of message below. Patient wondering if an external hemorrhoid and internal hemorrhoid could cause this as well? Patient would prefer not to have a colonoscopy since he just had one a little over a year ago. Is wondering if this is something he could just watch for and revisit sometime down the road. Patient agreeable to all vaccines. Appointment scheduled Mondayapr 29 at 11am. Will discuss with you about the hemorrhoid questions then. Cinthya Mireles LPN Please let patient know I have received the repot for the positive in stool. I know he had a colonoscopy in November of 2020, however I would recommend we either repeat or have him see general surgery to discuss colonoscopy. He is due for the influenza, pneumonia and COVID-19 booster. He does not need another vaccines other than those. Please assist in appointment if he would like to receive these. Josefina Stokes APRN.CNP documented in this encounter [facility] 02-17-2022 Miscellaneous Notes rec'd fax approval from [employer] for testosterone cypionate 200mg Vial. approved from 01/17/22 to 02/16/2023. documented in this encounter [facility] 02-15-2022 Miscellaneous Notes Prescription for testosterone sent to ashok Stokes APRN.CNP PDMP website checked and validated. All prescriptions have been APPROPRIATELY filled. No suspicious activity was identified. 02/15/2022 by Josefina Stokes APRN.CNP Spoke to patient who advised mail away will fill but needs rx sent. I can not see if PA is needed till rx sent and ran with insurance. [facility] Lillian Jenkins [facility] message sent from patient regarding Testosterone Rx. Good afternoon Ashok Rocha will fill the testosterone prescription but requires a call to [phone] for karen authorization. Then call [phone] to prescribe the testosterone. Thank you. Have a good day! Timmy Lula documented in this encounter [facility] 02-15-2022 Miscellaneous Notes New TE opened. 02/15/22 Patient called, message below given. Patient will call [facility] and let us know. Cinthya Mireles LPN I am not sure mail away will fill this medication. I would have him call them and ask if they fill this medication. Thanks, Josefina Stokes APRN.CNP He wants to know if he will be put back on Testerone and if so would like it sent to [facility] for 3 month at a time. Please advise pt. Mignon Munoz LPN What questions? Spoke with pt and information listed below given. Pt verbalizes understanding. Pt has questions. f Please advise pt. Mignon Munoz LPN Message left on patients secure VM of results. Instructed to call back if has any questions. Cinthya Mireles LPN ----- Message from Yousif Franco MD sent at 02/10/2022 4:29 PM EDT ----- Please let patient know his iron levels and blood counts are normal. Prostate cancer screening is negative. documented in this encounter [facility] 02-09-2022 Miscellaneous Notes Reviewed. Will await PSA level results. Josefina Stokes APRN.ADRIANNA Patient notified of results, verbalizes understanding of instructions. Will be in tomorrow to have PSA drawn. Stated he gave himself the injections the last time after they showed him once how to do it. Cinthya Mireles LPN Please call patient and let him know his testosterone is on lower end. We can restart testosterone. We need to get a PSA level prior to starting. Please ask him if he was giving his own injections or if he came into office for them. Stool negative for blood. Improved anemia and hemoglobin. Continue iron supplement. Improved LDL ( bad cholesterol) and total cholesterol. Triglycerides increased some- work on eating lower carbohydrate diet and getting at least 150 minutes of exercise per week. Continue current cholesterol medication. Will need to recheck testosterone level in 2-3 months after he start injection. Please schedule appointment to get prostate level checked if wanting to do testosterone injections. Thanks, Josefina Stokes APRN.CNP documented in this encounter [facility] 02-08-2022 Miscellaneous Notes Reviewed. Josefina Stokes APRN.ADRIANNA Lab contacted and they stated PSA's can't be added on. ----- Message from Josefina Stokes APRN.CNP sent at 02/08/2022 8:31 AM EDT ----- See if lab can add on a PSA to recent blood work. Thanks, Josefina Stokes APRN.CNP documented in this encounter [facility] 02-07-2022 History of Present illness Narrative 02/07/2022 Patient presents with: 6 Month Exam SUBJECTIVE: This is a 66 year old that is here today for Above Complaints. Since his last visit has been in good health without ER visits or hospitalizations. HYPERLIPIDEMIA: Patient is taking medications: Yes. Patient is watching diet: somewhat. Patient denies myalgias: Yes. Patient denies gi upset: Yes GERD: taking esomeprazole which controls symptoms well. TRAMAINE: taking iron as prescribed without side effects Testosterone: stopped taking injections and would like to restart. Admits to decreased libido and fatigue. BPH: stop taking the Flomax as he forgets to take it at night. Admits to nocturia. Denies incomplete emptying, dysuria, hematuria or weak stream Reports having some marital difficulties. Feels down. Lost job. Trying self-employment. He reports is domineering and controlling. Make him feel disrespected and devalued. Contemplating divorce. Denies physical harm or feeling unsafe at home. Not currently in counseling for himself. Doesn't think would be willing to go to marriage counseling. Denies SI or HI PAST MEDICAL HISTORY Diagnosis Date Arthritis Benign neoplasm of rectum and anal canal Seeing Dr. Falcon Enthesopathy of hip region Esophageal reflux Generalized anxiety disorder High cholesterol Hypogonadism in male Internal hemorrhoids without mention of complication Neuroma LEFT FOOT Other and unspecified hyperlipidemia Umbilical hernia without mention of obstruction or gangrene Varicose veins Vitamin D insufficiency ALLERGIES Baycol [Other], Environmental Allergies [Other], Erythromycin, Lipitor [Atorvastatin Calcium], Niaspan [Niacin], and Penicillins MEDICATIONS Current Outpatient Medications Medication Sig esomeprazole (NEXIUM) 40 mg capsule Take 1 capsule by mouth once daily. rosuvastatin (CRESTOR) 20 mg tablet Take 1 tablet by mouth daily at bedtime. ferrous sulfate 325 mg (65 mg iron) tablet Take 1 tablet by mouth twice daily with meals. tamsulosin (FLOMAX) 0.4 mg Take 1 capsule by mouth daily at bedtime. naproxen (NAPROSYN) 500 mg tablet Take 1 tablet by mouth twice daily as needed (for pain/inflammation). Take with food. COMPOUNDED PRESCRIPTION [facility] Push Brace to be used daily as directed. Compression Knee Highs KNEE HIGH COMPRESSION STOCKINGS 20-30 MM. DX: EDEMA, varicose veins icxzrgmq-csz-QH-lycopen-lutein (CENTRUM SILVER MEN) 300-600-300 mcg tab Take 1 tablet by mouth once daily. Diclofenac Sodium (VOLTAREN) 1 % gel Apply 2 g to affected area twice daily as needed. No current facility-administered medications for this visit. Medications and allergies reviewed by this provider. SOCIAL HISTORY Social History Tobacco Use Smoking status: Never Smoker Smokeless tobacco: Never Used Vaping Use Vaping Use: Never used Substance Use Topics Alcohol use: Yes Comment: ocassional Drug use: No REVIEW OF SYSTEMS GENERAL: No weight loss, malaise or fevers RESPIRATORY: Negative for cough, hemoptysis, wheezing, COPD, dyspnea or shortness of breath CARDIOVASCULAR: Negative for chest pain, hypertension, CHF or palpitations All other reviewed and negative other than HPI. OBJECTIVE: BP 124/80 Pulse 65 Resp 16 Wt 93.9 kg (207 lb) SpO2 97% BMI 30.57 kg/m . Vital signs reviewed by this provider. APPEARANCE Well appearing, alert, in no acute distress, well-hydrated, well nourished. EYES PERRLA, conjunctiva and sclera normal. HEART RRR with normal S1 and S2, no murmurs, no gallops, no JVD appreciated LUNG clear to auscultation. No wheezes, rhonchi, or rales EXTREMITIES Extremities normal, No deformities, No skin discoloration and Mild edema non-pitting to left lower leg- patient reports this is chronic since vein stripping years ago SKIN Skin color, texture, turgor normal, no suspicious rashes or lesions to exposed skin Component Latest Ref Rng & Units 08/04/2021 WBC 3.70 - 11.00 k/uL 5.93 RBC 4.20 - 6.00 m/uL 5.59 Hemoglobin 13.0 - 17.0 g/dL 12.5 (L) Hematocrit 39.0 - 51.0 % 43.7 MCV 80.0 - 100.0 fL 78.2 (L) MCH 26.0 - 34.0 pG 22.4 (L) MCHC 30.5 - 36.0 g/dL 28.6 (L) RDW-CV 11.5 - 15.0 % 14.6 Platelet Count 150 - 400 k/uL 296 MPV 9.0 - 12.7 fL 10.8 Neut% % 55.9 Abs Neut (ANC) 1.45 - 7.50 k/uL 3.31 Lymph% % 27.0 Abs Lymph 1.00 - 4.00 k/uL 1.60 Dale% % 13.5 Abs Dale <0.87 k/uL 0.80 Eosin% % 2.9 Abs Eosin <0.46 k/uL 0.17 Baso% % 0.7 Abs Baso <0.11 k/uL 0.04 Nucleated Reds 0 /100 WBC 0.0 Absolute nRBC <0.01 k/uL <0.01 Diff Type Auto Diff Protein, Total 6.3 - 8.0 g/dL 7.1 Albumin 3.9 - 4.9 g/dL 4.3 Calcium 8.5 - 10.2 mg/dL 9.5 Bilirubin, Total 0.2 - 1.3 mg/dL 0.6 Alkaline Phosphatase 38 - 113 U/L 73 AST 14 - 40 U/L 20 Glucose 74 - 99 mg/dL 92 BUN 9 - 24 mg/dL 22 Creatinine 0.73 - 1.22 mg/dL 1.20 Sodium 136 - 144 mmol/L 139 Potassium 3.7 - 5.1 mmol/L 4.2 Chloride 97 - 105 mmol/L 102 CO2 22 - 30 mmol/L 26 Anion Gap 9 - 18 mmol/L 11 ALT 10 - 54 U/L 18 eGFR- >60 eGFR-All Other Races . >60 Total Cholesterol, Nonfasting <200 mg/dL 229 (H) Triglycerides, Nonfasting <150 mg/dL 147 HDL Cholesterol, Nonfasting >39 mg/dL 44 LDL Cholesterol, Nonfasting <100 mg/dL 156 (H) Non HDL Cholesterol, Nonfasting <130 mg/dL 185 (H) VLDL Cholesterol, Nonfasting <30 mg/dL 29 Total Chol/HDL Ratio, Nonfasting <5.10 mg/dL 5.20 (H) LDL/HDL Ratio, Nonfasting <2.54 mg/dL 3.55 (H) Iron 41 - 186 ug/dL 41 TIBC 232 - 386 ug/dL 417 (H) Transferrin Saturation 15 - 57 % 10 (L) Testosterone 240 - 950 ng/dL 510 Testosterone Free 3.47 - 13.0 ng/dL 14.8 (H) Ferritin 30.3 - 565.7 ng/mL 11.5 (L) PNEUMOCOCCAL: 65+(1 - PCV) Never done ADVANCE DIRECTIVE DISCUSSION Never done COVID-19 VACCINE(4 - Booster for Pfizer series) due on 11/10/2021 DEPRESSION SCREENING due on 12/07/2021 INFLUENZA(1) due on 03/31/2022 DIABETES SCREEN due on 08/04/2024 PROSTATE CANCER SCREENING DISCUSSION due on 11/12/2025 COLORECTAL CANCER SCREENING due on 12/10/2025 LIPID SCREEN due on 08/04/2026 DTAP,TDAP,TD(3 - Td or Tdap) due on 07/16/2027 HEPATITIS C SCREENING Completed SHINGRIX VACCINE Completed ASSESSMENT/PLAN: 1. Mixed hyperlipidemia - ICD9: 272.2, ICD10: E78.2 (primary diagnosis) - to be determined upon return of lab results - Continue current medication. - Encouraged following a low fat, low cholesterol diet. - Discussed the benefits of regular aerobic exercise and weight loss. - Follow up in 6 months. - Encouraged following a low carbohydrate, healthy oil intake diet. 2. Iron deficiency anemia, unspecified iron deficiency anemia type - ICD9: 280.9, ICD10: D50.9 - IRON + TIBC - CBC - FERRITIN BLD 3. Nocturia - ICD9: 788.43, ICD10: R35.1 - patient would like to restart, will take in morning to see if it helps - TAMSULOSIN 0.4 MG CAPSULE 4. Hypogonadism in male - ICD9: 257.2, ICD10: E29.1 - getting Testerone level this AM 5. Gastroesophageal reflux disease without esophagitis - ICD9: 530.81, ICD10: K21.9 - Discussed lifestyle modifications including losing weight, limiting caffeine, no meals three hours before sleep and head of bed elevation - Continue treatment with Nexium 20 mg QD - Follow up in 6months - ESOMEPRAZOLE MAGNESIUM 40 MG CAPSULE,DELAYED RELEASE 6. Marital problems - ICD9: V61.10, ICD10: Z63.0 - discussed starting medication for depression and or consult to behavioral health specialist for community resources, declines at this time - follow-up as needed Josefina Stokes APRN.CNP Prescription instructions reviewed with patient as applicable. Patient advised if symptoms do not improve or if symptoms worsen sooner, to contact their primary care physician. Potential red flag symptoms discussed with the patient. Reviewed appropriate action plan to take if red flag symptoms occur. Patient agreeable to treatment plan. documented in this encounter [facility] 01-24-2022 Miscellaneous Notes Patient made aware. Dr. Franco is out this week so I will discuss with him next week when he comes back. Please let him know. Josefina Stokes APRN.ADRIANNA Stopped it for a while due to pharmacy always giving him issues with refills. Patient stated he hasn't taken for about 6-8 months. Cinthya Mireles LPN Has patient been taking this consistently or did he stop for awhile? Thanks, Josefina Stokes APRN.ADRIANNA Ketan Cordero is calling Yousif Franco MD today he is requesting a prescription for medication, not on his current list: testosterone cypionate (DEPO-TESTOSTERONE) 200 mg/mL injection (Discontinued) 6 mL 0 08/12/2019 08/06/2021 Sig: inject 1ml intramuscularly every 4 weeks Class: Call Rx Reason for Discontinue: Course of therapy completed Order: [id number] Please send to [facility]. Please notify patient once sent. Patient has been identified by name and birthdate. Duration of symptoms: N/A Person calling: self Call patient at: on cell [phone] (home) [phone] (cell) Was an appointment scheduled: No Closing statement: Results or non-symptom based questions: Thank you for calling [facility], your call will be returned within the next business day. Capri Mccain Pss documented in this encounter [facility] 11-15-2021 History of Present illness Narrative 11/15/2021 Patient presents with: Ear Problem: qtip broke off in right ear, cough, sinus pressure and sore throat x 9 days SUBJECTIVE: This is a 66 year old that is here today for Complaint(s) of right ear-qtip broke off in ear while cleaning ears. No pain in the ear no blood. Has also had URI symptoms x 9 days. Having sinus congestion and drainage and cough. Overall feels like it is improving. Cough is occasionally productive. Denies fever/chills, SOB, wheezing, chest pain, pleuritic chest pain. Patient did travel to [place] recently. He always has intermittent leg swelling in left leg, none currently. Improves with elevation when it does occur- for years per patient. No calf pain. PAST MEDICAL HISTORY Diagnosis Date Arthritis Benign neoplasm of rectum and anal canal Seeing Dr. Falcon Enthesopathy of hip region Esophageal reflux Generalized anxiety disorder High cholesterol Hypogonadism in male Internal hemorrhoids without mention of complication Neuroma LEFT FOOT Other and unspecified hyperlipidemia Umbilical hernia without mention of obstruction or gangrene Varicose veins Vitamin D insufficiency ALLERGIES Baycol [Other], Environmental Allergies [Other], Erythromycin, Lipitor [Atorvastatin Calcium], Niaspan [Niacin], and Penicillins MEDICATIONS Current Outpatient Medications Medication Sig rosuvastatin (CRESTOR) 20 mg tablet Take 1 tablet by mouth daily at bedtime. ferrous sulfate 325 mg (65 mg iron) tablet Take 1 tablet by mouth twice daily with meals. naproxen (NAPROSYN) 500 mg tablet Take 1 tablet by mouth twice daily as needed (for pain/inflammation). Take with food. esomeprazole (NEXIUM) 40 mg capsule Take 1 capsule by mouth once daily. COMPOUNDED PRESCRIPTION CMC Push Brace to be used daily as directed. Compression Knee Highs KNEE HIGH COMPRESSION STOCKINGS 20-30 MM. DX: EDEMA, varicose veins geakpagi-rfl-FM-lycopen-lutein (CENTRUM SILVER MEN) 300-600-300 mcg tab Take 1 tablet by mouth once daily. Diclofenac Sodium (VOLTAREN) 1 % gel Apply 2 g to affected area twice daily as needed. tamsulosin (FLOMAX) 0.4 mg Take 1 capsule by mouth daily at bedtime. No current facility-administered medications for this visit. SOCIAL HISTORY Social History Tobacco Use Smoking status: Never Smoker Smokeless tobacco: Never Used Vaping Use Vaping Use: Never used Substance Use Topics Alcohol use: Yes Comment: ocassional Drug use: No REVIEW OF SYSTEMS See HPI OBJECTIVE: BP 118/70 Pulse 76 Temp 36.2 C (97.1 F) Resp 16 Wt 97.1 kg (214 lb) SpO2 97% BMI 31.60 kg/m APPEARANCE Well appearing, alert, in no acute distress, well-hydrated, well nourished. EYES PERRLA, conjunctiva and sclera normal. EARS External ears normal, canals clear, no Foreign body. TMs normal SOTERO NOSE/SINUS Nares normal. Septum midline. Mucosa normal. No drainage or sinus tenderness. THROAT normal, no erythema NECK Supple, no adenopathy; thyroid symmetric, normal size, no bruits HEART RRR with normal S1 and S2, LUNG clear to auscultation EXTREMITIES Extremities normal, No deformities, No skin discoloration, No edema and Normal pulses bilaterally. ASSESSMENT/PLAN: 1. Foreign body of right ear, initial encounter - ICD9: 931, E915, ICD10: T16.1XXA (primary diagnosis) No obvious FB at this time. Suspect it came out on it's own or when removing qtip. F/u prn 2. URI, acute - ICD9: 465.9, ICD10: J06.9 Suspect viral URI with cough-overall improving Patient without LE swelling, TTP, pain, SOB, pleuritic chest pain-low suspicion for DVT/PE-Reviewed red flags and when to seek care sooner. - Discussed viral etiology and rationale for treatment. - Symptomatic treatment with prn analgesia - Supportive care with fluids and rest Reviewed red flags and when to seek care sooner in ER , including chest pain, SOB, fever >100, worsening symptoms The patient indicates understanding of these issues and agrees with the plan. Johanny Holly PA-C documented in this encounter [facility] documented as of this encounter (statuses as of 09/20/2022) [facility]2018 History of Past illness Narrative* Problem Noted Date Resolved Date Neck pain 03/21/2018 09/19/2022 Dizziness 10/19/2015 09/19/2022 Other social stressor 10/09/2015 09/19/2022 Screening for colon cancer 11/05/201009/19 documented as of this encounter (statuses as of 10/05/2022) [place] [address]-22-2018 History of Past illness Narrative* Problem Noted Date Resolved Date Neck pain 03/21/2018 09/19/2022 Dizziness 10/19/2015 09/19/2022 Other social stressor 10/09/2015 09/19/2022 Screening for colon cancer 11/05/201009/19 documented as of this encounter (statuses as of 10/06/2022) [place] [address]-22-2018 History of Past illness Narrative* Problem Noted Date Resolved Date Neck pain 03/21/2018 09/19/2022 Dizziness 10/19/2015 09/19/2022 Other social stressor 10/09/2015 09/19/2022 Screening for colon cancer 11/05/201009/19 documented as of this encounter (statuses as of 12/13/2022) [address]22-2018 History of Past illness Narrative* Problem Noted Date Diagnosed Date Resolved Date Neck pain 03/21/2018 09/19/2022 Dizziness 10/19/2015 09/19/2022 Other social stressor 10/09/20152022 Screening for colon cancer 11/05/2010 0 09/19/2022 documented as of this encounter (statuses as of 02/13/2023) [address]22-2018 History of Past illness Narrative* Problem Noted Date Diagnosed Date Resolved Date Neck pain 03/21/2018 09/19/2022 Dizziness 10/19/2015 09/19/2022 Other social stressor 10/09/20152022 Screening for colon cancer 11/05/2010 0 09/19/2022 documented as of this encounter (statuses as of 02/27/2023) [place] [address]-22-2018 History of Past illness Narrative* Problem Noted Date Diagnosed Date Resolved Date Neck pain 03/21/2018 09/19/2022 Dizziness 10/19/2015 09/19/2022 Other social stressor 10/09/20152022 Screening for colon cancer 11/05/2010 0 09/19/2022 documented as of this encounter (statuses as of 03/21/2023) [address]22-2018 History of Past illness Narrative* Problem Noted Date Diagnosed Date Resolved Date Neck pain 03/21/2018 09/19/2022 Dizziness 10/19/2015 09/19/2022 Other social stressor 10/09/20152022 Screening for colon cancer 11/05/2010 0 09/19/2022 documented as of this encounter (statuses as of 03/24/2023) [facility] History of Past illness Narrative* Problem Noted Date Diagnosed Date Resolved Date Neck pain 03/21/2018 09/19/2022 Dizziness 10/19/2015 09/19/2022 Other social stressor 10/09/20152022 Screening for colon cancer 11/05/2010 0 09/19/2022 documented as of this encounter (statuses as of 06/04/2023) [facility] History of Past illness Narrative* Problem Noted Date Diagnosed Date Resolved Date Neck pain 03/21/2018 09/19/2022 Dizziness 10/19/2015 09/19/2022 Other social stressor 10/09/20152022 Screening for colon cancer 11/05/2010 0 09/19/2022 documented as of this encounter (statuses as of 07/03/2023) [facility] History of Past illness Narrative* Problem Noted Date Diagnosed Date Resolved Date Neck pain 03/21/2018 09/19/2022 Dizziness 10/19/2015 09/19/2022 Other social stressor 10/09/20152022 Screening for colon cancer 11/05/2010 0 09/19/2022 documented as of this encounter (statuses as of 07/06/2023) [facility] History of Past illness Narrative* Problem Noted Date Resolved Date Bilateral carotid artery stenosis 10/28/2015 03/03/2016 Overview: [place] 09/2015: 20-40%on Rt and 0-19% on Lt. documented as of this encounter (statuses as of 11/15/2021) [facility] History of Past illness Narrative* Problem Noted Date Resolved Date Bilateral carotid artery stenosis 10/28/2015 03/03/2016 Overview: [place] 09/2015: 20-40%on Rt and 0-19% on Lt. documented as of this encounter (statuses as of 02/04/2022) [facility] History of Past illness Narrative* Problem Noted Date Resolved Date Bilateral carotid artery stenosis 10/28/2015 03/03/2016 Overview: [place] 09/2015: 20-40%on Rt and 0-19% on Lt. documented as of this encounter (statuses as of 02/07/2022) [address]30-2016 History of Past illness Narrative* Problem Noted Date Resolved Date Bilateral carotid artery stenosis 10/28/2015 03/03/2016 Overview: [place] 09/2015: 20-40%on Rt and 0-19% on Lt. documented as of this encounter (statuses as of 02/08/2022) [address]30-2016 History of Past illness Narrative* Problem Noted Date Resolved Date Bilateral carotid artery stenosis 10/28/2015 03/03/2016 Overview: [place] 09/2015: 20-40%on Rt and 0-19% on Lt. documented as of this encounter (statuses as of 02/09/2022) [address]30-2016 History of Past illness Narrative* Problem Noted Date Resolved Date Bilateral carotid artery stenosis 10/28/2015 03/03/2016 Overview: [place] 09/2015: 20-40%on Rt and 0-19% on Lt. documented as of this encounter (statuses as of 02/11/2022) [address]30-2016 History of Past illness Narrative* Problem Noted Date Resolved Date Bilateral carotid artery stenosis 10/28/2015 03/03/2016 Overview: [place] 09/2015: 20-40%on Rt and 0-19% on Lt. documented as of this encounter (statuses as of 02/15/2022) [address]30-2016 History of Past illness Narrative* Problem Noted Date Resolved Date Bilateral carotid artery stenosis 10/28/2015 03/03/2016 Overview: [place] 09/2015: 20-40%on Rt and 0-19% on Lt. documented as of this encounter (statuses as of 02/15/2022) [facility] History of Past illness Narrative* Problem Noted Date Resolved Date Bilateral carotid artery stenosis 10/28/2015 03/03/2016 Overview: [place] 09/2015: 20-40%on Rt and 0-19% on Lt. documented as of this encounter (statuses as of 02/17/2022) [address]30-2016 History of Past illness Narrative* Problem Noted Date Resolved Date Bilateral carotid artery stenosis 10/28/2015 03/03/2016 Overview: [place] 09/2015: 20-40%on Rt and 0-19% on Lt. documented as of this encounter (statuses as of 04/05/2022) [address]30-2016 History of Past illness Narrative* Problem Noted Date Resolved Date Bilateral carotid artery stenosis 10/28/2015 03/03/2016 Overview: [place] 09/2015: 20-40%on Rt and 0-19% on Lt. documented as of this encounter (statuses as of 05/02/2022) [address]30-2016 History of Past illness Narrative* Problem Noted Date Resolved Date Bilateral carotid artery stenosis 10/28/2015 03/03/2016 Overview: [place] 09/2015: 20-40%on Rt and 0-19% on Lt. documented as of this encounter (statuses as of 05/02/2022) [address]30-2016 History of Past illness Narrative* Problem Noted Date Resolved Date Bilateral carotid artery stenosis 10/28/2015 03/03/2016 Overview: [place] 09/2015: 20-40%on Rt and 0-19% on Lt. documented as of this encounter (statuses as of 05/19/2022) [address]30-2016 History of Past illness Narrative* Problem Noted Date Resolved Date Bilateral carotid artery stenosis 10/28/2015 03/03/2016 Overview: [place] 09/2015: 20-40%on Rt and 0-19% on Lt. documented as of this encounter (statuses as of 08/02/2022) [facility] History of Past illness Narrative* Problem Noted Date Resolved Date Bilateral carotid artery stenosis 10/28/2015 03/03/2016 Overview: [place] 09/2015: 20-40%on Rt and 0-19% on Lt. documented as of this encounter (statuses as of 08/04/2022) [address]30-2016 History of Past illness Narrative* Problem Noted Date Resolved Date Bilateral carotid artery stenosis 10/28/2015 03/03/2016 Overview: [place] 09/2015: 20-40%on Rt and 0-19% on Lt. documented as of this encounter (statuses as of 08/05/2022) [address]30-2016 History of Past illness Narrative* Problem Noted Date Resolved Date Bilateral carotid artery stenosis 10/28/2015 03/03/2016 Overview: [place] 09/2015: 20-40%on Rt and 0-19% on Lt. documented as of this encounter (statuses as of 08/08/2022) [address]30-2016 History of Past illness Narrative* Problem Noted Date Resolved Date Bilateral carotid artery stenosis 10/28/2015 03/03/2016 Overview: [place] 09/2015: 20-40%on Rt and 0-19% on Lt. documented as of this encounter (statuses as of 08/10/2022) [address]30-2016 History of Past illness Narrative* Problem Noted Date Resolved Date Bilateral carotid artery stenosis 10/28/2015 03/03/2016 Overview: [place] 09/2015: 20-40%on Rt and 0-19% on Lt. documented as of this encounter (statuses as of 08/11/2022) [address]30-2016 History of Past illness Narrative* Problem Noted Date Resolved Date Bilateral carotid artery stenosis 10/28/2015 03/03/2016 Overview: [place] 09/2015: 20-40%on Rt and 0-19% on Lt. documented as of this encounter (statuses as of 08/12/2022) [facility] History of Past illness Narrative* Problem Noted Date Resolved Date Bilateral carotid artery stenosis 10/28/2015 03/03/2016 Overview: 09/2015: 20-40%on Rt and 0-19% on Lt. documented as of this encounter (statuses as of 08/23/2022) [facility] [place] [facility] Diagnosis Foreign body of right ear, initial encounter- Primary URI, acute Acute upper respiratory infections of unspecified site [facility] [place] [facility] Diagnosis Hypogonadism in male- Primary Mixed hyperlipidemia [facility] [place] [facility] Diagnosis Mixed hyperlipidemia- Primary Iron deficiency anemia, unspecified iron deficiency anemia type Nocturia Hypogonadism in male Gastroesophageal reflux disease without esophagitis Esophageal reflux Marital problems Counseling for marital and partner problems, unspecified [facility] [place] [facility] Diagnosis Screening for prostate cancer- Primary Special screening for malignant neoplasm of prostate [facility] [place] [facility] Diagnosis Hypogonadism in male [facility] [place] [facility] Diagnosis Positive fecal occult blood test- Primary Nonspecific abnormal finding in stool contents Encounter for immunization Need for other specified prophylactic vaccination against single bacterial disease [facility] [place] [facility] Diagnosis Positive fecal occult blood test Nonspecific abnormal finding in stool contents [facility] [place] [facility] Diagnosis NSTEMI (non-ST elevated myocardial infarction) (HCC)- Primary Acute myocardial infarction, subendocardial infarction, episode of care unspecified Chest pain due to myocardial ischemia, unspecified ischemic chest pain type WHEAT (dyspnea on exertion) Other dyspnea and respiratory abnormality Eczema, unspecified type [facility] [place] [facility] Diagnosis Chronic cough- Primary Cough [facility] [place] [facility] Diagnosis Mixed hyperlipidemia- Primary NSTEMI (non-ST elevated myocardial infarction) (HCC) Acute myocardial infarction, subendocardial infarction, episode of care unspecified Left wrist pain Pain in joint, forearm Cough, unspecified type Rectal lesion Other specified disorder of rectum and anus [facility] [place] [facility] Diagnosis Nocturia [facility] in [facility] [place] [facility] Diagnosis Nocturia documented in this encounter [facility] note* Diagnosis Cough, unspecified type documented in this encounter [facility] note* Diagnosis Hyperglycemia- Primary Other abnormal glucose documented in this encounter [facility] note* Diagnosis Coronary artery disease involving [place] heart without angina pectoris, unspecified vessel or lesion type- Primary NOE (obstructive sleep apnea) Obstructive sleep apnea (adult) (pediatric) Generalized anxiety disorder Gastroesophageal reflux disease with esophagitis, unspecified whether hemorrhage Mixed hyperlipidemia Left wrist pain Pain in joint, forearm [facility] [place] [facility] Diagnosis URI, acute- Primary Acute upper respiratory infections of unspecified site Cough, unspecified type [facility] this [facility] [place] [facility] Diagnosis Coronary artery disease involving [place] heart without angina pectoris, unspecified vessel or lesion type- Primary Bilateral carotid artery stenosis Occlusion and stenosis of carotid artery without mention of cerebral infarction Stress and adjustment reaction Other specified adjustment reaction Mixed hyperlipidemia NOE (obstructive sleep apnea) Obstructive sleep apnea (adult) (pediatric) Hyperhidrosis Primary focal hyperhidrosis Hypogonadism in male Chronic pain of left knee Pain in joint, lower leg Dermatitis Contact dermatitis and other eczema, due to unspecified cause documented [facility] this [facility] [place] [facility] Diagnosis Osteoarthritis of knee, unspecified laterality, unspecified osteoarthritis type- Primary documented in this encounter [facility] note* Diagnosis Encounter for immunization- Primary Need for other specified prophylactic vaccination against single bacterial disease documented in this encounter [facility] note* Diagnosis Acute COVID-19- Primary Coronary artery disease involving [place] heart without angina pectoris, unspecified vessel or lesion type documented in this encounter [facility] for referral (narrative)* Outpatient Procedure (Routine) - Closed Specialty Diagnoses / Procedures Referred By Kristina t Referred To [facility] Diagnoses NSTEMI (non-ST elevated myocardial infarction) (HCC) Procedures ECG COMPLETE ECG ROUTINE ECG W/LEAST 12 LDS W/I&R Yousif Franco MD [address] [place] [address] [facility] [place] [address] [place] [address] Referral ID Status Reason Start Date Expiration Date V isits Requested Visits Authorized [id number] Closed Auto-Generate d Referral 07/27/2022 07/27/2023 1 1 [facility] for referral (narrative)* Diagnostic Procedure Only (Routine) - Closed Specialty Diagnoses / Procedures Referred By Contac t Referred To Contact XR IMAGING Diagnoses Left wrist pain Procedures XR WRIST GENERAL 3V PA/LAT/OBL LEFT RADEX WRIST COMPLETE MINIMUM 3 VIEWS Pacheco Kuhn MD [address] [place] [address] Xr Imaging Referral ID Status Reason Start Date Expiration Date V isits Requested Visits Authorized [id number] Closed Auto-Generate d Referral 09/19/2022 10/19/2023 1 1 [facility] for referral (narrative)* Diagnostic Procedure Only (Routine) - Closed Specialty Diagnoses / Procedures Referred By Contac t Referred To Contact XR IMAGING Diagnoses Chronic pain of left knee Procedures XR KNEE GENERAL 4V AP BOTH/PA BOTH/LAT/MERC LEFT RADIOLOGIC EXAM KNEE COMPLETE 4/MORE VIEWS Pacheco Kuhn MD [address] [place] [address] [place] [address] Referral ID Status Reason Start Date Expiration Date V isits Requested Visits Authorized [id number] Closed Auto-Generate d Referral 03/20/2023 04/18/2024 1 1 [facility] Summary Purpose Family History No Family History Records FoundNo Family History Records FoundNo Family History Records Found Advance Directives No Advanced Directives Records FoundDocuments on File Type Date Recorded 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 Advance Directive(s) 12/10/2020 9:51 AM Reason for Referral Specialty Diagnoses / Procedures Referred By Contac t Referred To Contact General Surgery Diagnoses Positive fecal occult blood test Procedures CONSULT TO GENERAL SURGERY OFFICE/OUTPATIENT [facility] 60-74 MINUTES LorenzologJosefina luke APRN.CLOTHING MAN [address] [place] [address] Referral ID Status Reason Start Date Expiration Date Visits Requested Visits Authorized [id number] Authorized PCP Requested Referral 05/02/2022 05/02/2023 1 1 Specialty Diagnoses / Procedures Referred By Contac t Referred To Contact General Surgery Diagnoses Rectal lesion Procedures CONSULT TO GENERAL SURGERY OFFICE/OUTPATIENT NEW HIGH MDM 60-74 MINUTES Pcaheco Kuhn MD [address] [place] [address] Referral ID Status Reason Start Date Expiration Date Visits Requested Visits Authorized [id number] Authorized PCP Requested Referral 08/05/2022 08/05/2023 1 1 Specialty Diagnoses / Procedures Referred By Contac t Referred To [facility] Diagnoses Cough, unspecified type Procedures LUNG VOLUMES Pacheco Kuhn MD [address] [place] [address] [address] Referral ID Status Reason Start Date Expiration Date Visits Requested Visits Authorized [id number] Authorized Auto-Generat ed Referral 08/05/2022 09/04/2023 1 1 Specialty Diagnoses / Procedures Referred By Contac t Referred To [facility] Diagnoses Cough, unspecified type Procedures LUNG DIFFUSION CAPACITY (DLCO) DIFFUSING CAPACITY Pacheco Kuhn MD [address] [place] [address] [address] Referral ID Status Reason Start Date Expiration Date Visits Requested Visits Authorized [id number] Authorized Auto-Generat ed Referral 08/05/2022 09/04/2023 1 1 Specialty Diagnoses / Procedures Referred By Contac t Referred To [facility] Diagnoses Cough, unspecified type Procedures SPIROMETRY WITH DILATOR IF OBSTRUCTED BRNCDILAT RSPSE SPMTRY PRE&POST-BRNCDILAT ADMN Pacheco Kuhn MD [address] [place] [address] Respiratory [place] [address] [place] [id number] Referral ID Status Reason Start Date Expiration Date Visits Requested Visits Authorized [id number] Authorized Auto-Generat ed Referral 08/05/2022 09/04/2023 1 1 Specialty Diagnoses / Procedures Referred By Contac t Referred To Contact XR IMAGING Diagnoses Left wrist pain Procedures XR WRIST GENERAL 3V PA/LAT/OBL LEFT RADEX WRIST COMPLETE MINIMUM 3 VIEWS Pacheco Kuhn MD [address] [place] [address] Xr Imaging Referral ID Status Reason Start Date Expiration Date V isits Requested Visits Authorized [id number] Closed Auto-Generate d Referral 08/05/2022 09/04/2023 1 1 Specialty Diagnoses / Procedures Referred By Contac t Referred To Contact [facility] Diagnoses Osteoarthritis of knee, unspecified laterality, unspecified osteoarthritis type Procedures CONSULT TO PHYSICAL THERAPY PHYSICAL THERAPY EVALUATION HIGH COMPLEX 45 MINS Pacheco Kuhn MD [address] [place] [address] [facility] [place] [address] [place] [address] Referral ID Status Reason Start Date Expiration Date Visits Requested Visits Authorized [id number] Pending Review Auto-Generat ed Referral 03/23/2023 03/22/2024 1 1 Additional Source Comments (unrecognized sect ion and content) No Status Records FoundNo Status Records FoundNo Status Records Found INFORMATION SOURCE (unrecogn ized section and content) DATE CREATED AUTHOR AUTHOR'S ORGANIZ ATION 08/13/2021 [facility] DATE CREATED AUTHOR AUTHOR'S ORGANIZ ATION 08/18/2023 [facility] Source Comments (unrecognize d section and content) In the event this informatio n is protected by the Federal Confidentiality of Alcohol and Drug Abuse Patient Records regulations: The Federal rules restrict any use of the information to criminally investigate or prosecute any alcohol or drug abuse patient.[facility] the event this information is protected by the Federal Confidentiality of Alcohol and Drug Abuse Patient Records regulations: The Federal rules restrict any use of the information to criminally investigate or prosecute any alcohol or drug abuse patient.[facility] the event this information is protected by the Federal Confidentiality of Alcohol and Drug Abuse Patient Records regulations: The Federal rules restrict any use of the information to criminally investigate or prosecute any alcohol or drug abuse patient.[facility] the event this information is protected by the Federal Confidentiality of Alcohol and Drug Abuse Patient Records regulations: The Federal rules restrict any use of the information to criminally investigate or prosecute any alcohol or drug abuse patient.[facility] the event this information is protected by the Federal Confidentiality of Alcohol and Drug Abuse Patient Records regulations: The Federal rules restrict any use of the information to criminally investigate or prosecute any alcohol or drug abuse patient.[facility] the event this information is protected by the Federal Confidentiality of Alcohol and Drug Abuse Patient Records regulations: The Federal rules restrict any use of the information to criminally investigate or prosecute any alcohol or drug abuse patient.[facility] the event this information is protected by the Federal Confidentiality of Alcohol and Drug Abuse Patient Records regulations: The Federal rules restrict any use of the information to criminally investigate or prosecute any alcohol or drug abuse patient.[facility] the event this information is protected by the Federal Confidentiality of Alcohol and Drug Abuse Patient Records regulations: The Federal rules restrict any use of the information to criminally investigate or prosecute any alcohol or drug abuse patient.[facility] the event this information is protected by the Federal Confidentiality of Alcohol and Drug Abuse Patient Records regulations: The Federal rules restrict any use of the information to criminally investigate or prosecute any alcohol or drug abuse patient.[facility] the event this information is protected by the Federal Confidentiality of Alcohol and Drug Abuse Patient Records regulations: The Federal rules restrict any use of the information to criminally investigate or prosecute any alcohol or drug abuse patient.[facility] the event this information is protected by the Federal Confidentiality of Alcohol and Drug Abuse Patient Records regulations: The Federal rules restrict any use of the information to criminally investigate or prosecute any alcohol or drug abuse patient.[facility] the event this information is protected by the Federal Confidentiality of Alcohol and Drug Abuse Patient Records regulations: The Federal rules restrict any use of the information to criminally investigate or prosecute any alcohol or drug abuse patient.[facility] the event this information is protected by the Federal Confidentiality of Alcohol and Drug Abuse Patient Records regulations: The Federal rules restrict any use of the information to criminally investigate or prosecute any alcohol or drug abuse patient.[facility] the event this information is protected by the Federal Confidentiality of Alcohol and Drug Abuse Patient Records regulations: The Federal rules restrict any use of the information to criminally investigate or prosecute any alcohol or drug abuse patient.[facility] the event this information is protected by the Federal Confidentiality of Alcohol and Drug Abuse Patient Records regulations: The Federal rules restrict any use of the information to criminally investigate or prosecute any alcohol or drug abuse patient.[facility] the event this information is protected by the Federal Confidentiality of Alcohol and Drug Abuse Patient Records regulations: The Federal rules restrict any use of the information to criminally investigate or prosecute any alcohol or drug abuse patient.[facility] the event this information is protected by the Federal Confidentiality of Alcohol and Drug Abuse Patient Records regulations: The Federal rules restrict any use of the information to criminally investigate or prosecute any alcohol or drug abuse patient.[facility] the event this information is protected by the Federal Confidentiality of Alcohol and Drug Abuse Patient Records regulations: The Federal rules restrict any use of the information to criminally investigate or prosecute any alcohol or drug abuse patient.[facility] the event this information is protected by the Federal Confidentiality of Alcohol and Drug Abuse Patient Records regulations: The Federal rules restrict any use of the information to criminally investigate or prosecute any alcohol or drug abuse patient.[facility] the event this information is protected by the Federal Confidentiality of Alcohol and Drug Abuse Patient Records regulations: The Federal rules restrict any use of the information to criminally investigate or prosecute any alcohol or drug abuse patient.[facility] the event this information is protected by the Federal Confidentiality of Alcohol and Drug Abuse Patient Records regulations: The Federal rules restrict any use of the information to criminally investigate or prosecute any alcohol or drug abuse patient.[facility] Hospital[facility] the event this information is protected by the Federal Confidentiality of Alcohol and Drug Abuse Patient Records regulations: The Federal rules restrict any use of the information to criminally investigate or prosecute any alcohol or drug abuse patient.[facility] the event this information is protected by the Federal Confidentiality of Alcohol and Drug Abuse Patient Records regulations: The Federal rules restrict any use of the information to criminally investigate or prosecute any alcohol or drug abuse patient.[facility] the event this information is protected by the Federal Confidentiality of Alcohol and Drug Abuse Patient Records regulations: The Federal rules restrict any use of the information to criminally investigate or prosecute any alcohol or drug abuse patient.[facility] Hospital[facility] the event this information is protected by the Federal Confidentiality of Alcohol and Drug Abuse Patient Records regulations: The Federal rules restrict any use of the information to criminally investigate or prosecute any alcohol or drug abuse patient.[facility] Hospital[facility] the event this information is protected by the Federal Confidentiality of Alcohol and Drug Abuse Patient Records regulations: The Federal rules restrict any use of the information to criminally investigate or prosecute any alcohol or drug abuse patient.[facility]In the event this information is protected by the Federal Confidentiality of Alcohol and Drug Abuse Patient Records regulations: The Federal rules restrict any use of the information to criminally investigate or prosecute any alcohol or drug abuse patient.[facility] HospitalIn the event this information is protected by the Federal Confidentiality of Alcohol and Drug Abuse Patient Records regulations: The Federal rules restrict any use of the information to criminally investigate or prosecute any alcohol or drug abuse patient.[facility] HospitalIn the event this information is protected by the Federal Confidentiality of Alcohol and Drug Abuse Patient Records regulations: The Federal rules restrict any use of the information to criminally investigate or prosecute any alcohol or drug abuse patient.[facility] HospitalIn the event this information is protected by the Federal Confidentiality of Alcohol and Drug Abuse Patient Records regulations: The Federal rules restrict any use of the information to criminally investigate or prosecute any alcohol or drug abuse patient.[facility] HospitalIn the event this information is protected by the Federal Confidentiality of Alcohol and Drug Abuse Patient Records regulations: The Federal rules restrict any use of the information to criminally investigate or prosecute any alcohol or drug abuse patient.[facility] HospitalIn the event this information is protected by the Federal Confidentiality of Alcohol and Drug Abuse Patient Records regulations: The Federal rules restrict any use of the information to criminally investigate or prosecute any alcohol or drug abuse patient.[facility] HospitalIn the event this information is protected by the Federal Confidentiality of Alcohol and Drug Abuse Patient Records regulations: The Federal rules restrict any use of the information to criminally investigate or prosecute any alcohol or drug abuse patient.[facility]In the event this information is protected by the Federal Confidentiality of Alcohol and Drug Abuse Patient Records regulations: The Federal rules restrict any use of the information to criminally investigate or prosecute any alcohol or drug abuse patient.[facility] Reason for Visit (unrecogniz ed section and content) Reason Comments 6 Month Exam Specialty Diagnoses / Procedures Referred By Contac t Referred To Contact Family Practice / FAMILY MEDICINE Diagnoses 6 mo follow up Procedures 4C YANETH Prince MD PodlogarJosefina APRN.CLOTHING MAN [address] [place] [address] Referral ID Status Reason Start Date Expiration Date Visits Re quested Visits Authorized [id number] Closed 02/07/2022 07/30/2022 1 1 Reason Comments Orders Reason Comments Results Reason Comments Medication Request testosterone Reason Comments Orders Prior Auth for Testo sterone Reason Comments Insurance Authorization Reason Comments Discussion Results of IFOBT Reason Comments Consult +Fecal occult blood Specialty Diagnoses / Procedures Referred By Contshante t Referred To Contact General Surgery Diagnoses Positive fecal occult blood test Procedures CONSULT TO GENERAL SURGERY OFFICE/OUTPATIENT [facility] 60-74 MINUTES Josefina Stokes APRN.CLOTHING MAN [address] [place] [address] Referral ID Status Reason Start Date Expiration Date V isits Requested Visits Authorized [id number] Closed PCP Requested Referral 05/02/2022 05/02/2023 1 1 Reason Comments Hospital F/U [facility] admin 07/16/22 w ith left arm pain dx elevated BP, MID/C 07/19/22 Reason Comments Cough Has had a long time due to reflux but seems to be worse Reason Comments Establish Care Reason Onset Date Comments Refill Request 08/06/2022 Reason Comments Spirometry Specialty Diagnoses / Procedures [facility] Diagnoses Cough, unspecified type Procedures LUNG VOLUMES Pacheco Kuhn MD [address] [place] [address] [address] Referral ID Status Reason Start Date Expiration Date V isits Requested Visits Authorized [id number] Closed Auto-Generate d Referral 08/05/2022 09/04/2023 1 1 Specialty Diagnoses / Procedures [facility] Diagnoses Cough, unspecified type Procedures LUNG DIFFUSION CAPACITY (DLCO) DIFFUSING CAPACITY Pacheco Kuhn MD [address] [place] [address] [address] Referral ID Status Reason Start Date Expiration Date V isits Requested Visits Authorized [id number] Closed Auto-Generate d Referral 08/05/2022 09/04/2023 1 1 Reason Comments Appointment Rescheduled Reason Comments Follow Up Reason Comments Sinus Problem Reason Onset Date Comments Refill Request 12/10/2022 Reason Onset Date Comments Refill Request 02/11/2023 Reason Comments 6 Month Exam Derm Problem Pain Reason Comments Results Reason Onset Date Comments Refill Request 07/01/2023 Reason Comments Fever Drainage, stomach ac he, CORONEL x 3 days Care Teams (unrecognized sec tion and content) Support Engineer Relationship Specialty Start Date End Date Yousif Franco MD [address] [place], [place] [id number] PCP - General Family Practice 11/07/16 Support Engineer Relationship Specialty Start Date End Date Yousif Franco MD [address] [place] [address] PCP - General Family Practice 11/07/16 Support Engineer Relationship Specialty Start Date End Date Yousif Franco MD [address] [place] [address] PCP - General Family Practice 11/07/16 Support Engineer Relationship Specialty Start Date End Date Yousif Franco MD [address] [place] [address] PCP - General Family Practice 11/07/16 Support Engineer Relationship Specialty Start Date End Date Yousif Franco MD [address] [place] [address] PCP - General Family Medicine 11/07/16 Support Engineer Relationship Specialty Start Date End Date Yousif Franco MD [address] [place] [address] PCP - General Family Medicine 11/07/16 Support Engineer Relationship Specialty Start Date End Date Yousif Franco MD [address] [place] [address] PCP - General Family Medicine 11/07/16 Support Engineer Relationship Specialty Start Date End Date Yousif Franco MD [address] [place] [address] PCP - General Family Medicine 11/07/16 Support Engineer Relationship Specialty Start Date End Date Yousif Franco MD [address] [place] [address] PCP - General Family Medicine 11/07/16 Support Engineer Relationship Specialty Start Date End Date Pacheco Kuhn MD [address] [place] [address] PCP - General Family Medicine 08/05/22 Support Engineer Relationship Specialty Start Date End Date Pacheco Kuhn MD [address] [place] [address] PCP - General Family Medicine 08/05/22 Support Engineer Relationship Specialty Start Date End Date Pacheco Kuhn MD [address] [place] [address] PCP - General Family Medicine 08/05/22 Support Engineer Relationship Specialty Start Date End Date Pacheco Kuhn MD [address] [place] [address] PCP - General Family Medicine 08/05/22 Support Engineer Relationship Specialty Start Date End Date Pacheco Kuhn MD [address] [place] [address] PCP - General Family Medicine 08/05/22 Support Engineer Relationship Specialty Start Date End Date Pacheco Kuhn MD [address] [place] [address] PCP - General Family Medicine 08/05/22 Support Engineer Relationship Specialty Start Date End Date Pacheco Kuhn MD [address] [place] [address] PCP - General Family Medicine 08/05/22 Support Engineer Relationship Specialty Start Date End Date Pacheco Kuhn MD [address] [place] [address] PCP - General Family Medicine 08/05/22 Support Engineer Relationship Specialty Start Date End Date Pacheco Kuhn MD [address] [place] [address] PCP - General Family Medicine 08/05/22 Support Engineer Relationship Specialty Start Date End Date Pacheco Kuhn MD [address] [place] [address] PCP - General Family Medicine 08/05/22 Support Engineer Relationship Specialty Start Date End Date Pacheco Kuhn MD [address] [place], [place] [id number] PCP - General Family Medicine 08/05/22 Support Engineer Relationship Specialty Start Date End Date Pacheco Kuhn MD [address] [place], [place] [address] PCP - General Family [facility] 08/05/22 Support Engineer Relationship Specialty Start Date End Date Pacheco Kuhn MD [address] [place], [place] [address] PCP - [facility] 08/05/22 Support Engineer Relationship Specialty Start Date End Date Pacheco Kuhn MD [address] [place] [address] PCP - [facility] 08/05/22 Support Engineer Relationship Specialty Start Date End Date Pacheco Kuhn MD [address] [place], [place] [address] PCP - General Family Medicine 08/05/22 FOR RECORDS PERTAINING TO PATIENTS WHO ARE OR HAVE BEEN ENROLLED IN A CHEMICAL DEPENDENCY/SUBSTANCEABUSE PROGRAM, SOME INFORMATION MAY BE OMITTED. This clinical summary was aggregated from multiple sources. Caution should be exercised in using it in the provision of clinical care. This summary normalizes information from multiple sources, and as a consequence, information in this document may materially change the coding, format and clinical context of patient data. In addition, data may be omitted in some cases. CLINICAL DECISIONS SHOULD BE BASED ON THE PRIMARY CLINICAL RECORDS. [facility]. provides no warranty or guarantee of the accuracy or completeness of information in this document.
--- NOTE | 2023-09-19 22:20 | RAD_ITS ---
EXAM: XR RIGHT SHOULDER COMPLETE, 2 OR MORE VIEWS CLINICAL INDICATION: pain TECHNIQUE: Two or more views of the right shoulder. COMPARISON: Chest radiograph, 08/08/2022 FINDINGS: BONES/JOINTS: Subtle angulation and lucency at the inferior angle of the scapula perhaps artifactual or indicative of a fracture. Acromioclavicular and glenohumeral joint arthrosis. Degenerative changes in the spine. SOFT TISSUES: No significant abnormality. No soft tissue swelling or gas. No radiopaque foreign body. RAD/Shoulder min 2 Views IMPRESSION: 1. Subtle angulation and lucency at the inferior angle of the scapula perhaps artifactual or indicative of a fracture. Correlate for pain at this location. 2. Acromioclavicular and glenohumeral joint arthrosis. Electronically Signed: Gerardo Adrian DO at 22:40 EST ,
--- NOTE | 2023-09-19 23:07 | CT_ITS ---
EXAM: CT CHEST WITHOUT INTRAVENOUS CONTRAST CLINICAL INDICATION: trauma pain. TECHNIQUE: Helically acquired images were obtained of the chest without intravenous contrast. This CT exam was performed using one or more of the following dose reduction techniques: automated exposure control, adjustment of the mA and/or kV according to patient size, and/or use of iterative reconstruction technique. COMPARISON: CT thoracic spine on the same date. Right shoulder radiograph on the same date. FINDINGS: LUNGS AND PLEURAL SPACES: No significant abnormality. No mass. No consolidation or edema. No pleural effusion or thickening. No pneumothorax. HEART: No significant abnormality. Heart size is normal. No pericardial effusion. No significant coronary artery calcifications. MEDIASTINUM: No significant abnormality. No mediastinal or hilar adenopathy. Esophagus is unremarkable. No hiatal hernia. THYROID: No significant abnormality. No thyroid lesions. BONES/JOINTS: Possible acute mild compression deformities of T3 and T7. Comminuted right scapular wing fracture correlating with comparison radiograph. No suspicious lytic or blastic abnormality. VASCULATURE: Vascular calcifications. Thoracic aorta is non-dilated. LIVER: Circumscribed cystic focus adjacent to the right hepatic lobe capsule is nonspecific, almost certainly benign and unlikely posttraumatic. Correlate for pain in the right flank. CT/Chest without Contrast IMPRESSION: 1. Possible acute mild compression deformities of T3 and T7. Right scapular fracture. 2. Circumscribed cystic focus adjacent to the right hepatic lobe capsule is nonspecific, almost certainly benign and unlikely posttraumatic. Correlate for pain in the right flank. 3. No acute visceral pathology is otherwise identified in the chest. Electronically Signed: Gerardo Adrian DO at 0:02 [facility] ,
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
[2023-09-20 00:30] VITALS: BP 138/89; PULSE 87; RESP 17; TEMP 36.6; O2SAT 97
== END 2023-09-20 00:31 | disposition home or self-care (01) ==
PROVIDERS: Emergency Provider Student in an Organized Health Care Education/Training Program; PCP Family Medicine; Visit Provider Student in an Organized Health Care Education/Training Program
DX: S22.030A Wedge compression fracture of third thoracic vertebra, initial encounter for closed fracture (principal); S22.060A Wedge compression fracture of T7-T8 vertebra, initial encounter for closed fracture; S42.101A Fracture of unspecified part of scapula, right shoulder, initial encounter for closed fracture; Z79.02 Long term (current) use of antithrombotics/antiplatelets; K21.9 Gastro-esophageal reflux disease without esophagitis; E78.5 Hyperlipidemia, unspecified; Z79.899 Other long term (current) drug therapy; V00.321A Fall from snow-skis, initial encounter; Y93.23 Activity, snow (alpine) (downhill) skiing, snowboarding, sledding, tobogganing and snow tubing
CPT/HCPCS: 70450; 71250; 72125; 72128; 73030; 99283

== ENCOUNTER 2024-02-05 10:30 | Outpatient (RCR) | payer MEDICARE, SELFPAY ==
[2023-09-22 08:46] VITALS: BMI 29.4
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
--- NOTE | 2023-10-26 11:53 | HP.PTREVAL ---
Re-Evaluation Intro: Dr. Ruy Guzman, DO, It has been my pleasure to treat KETAN COTTON over the last 8 visits for R scapular Fx, Fx T3 and T7. Please see the progress note below for an update on the physical therapy plan of care! Subjective Subjective: My shoulder still hurts a lot with specific movements Objective Objective/Function: R shoulder pain ranges from 1-5/10 R shoulder ROM: flex= 160, abd= 110, ER= 70 degrees R shoulder MMT: flex= 4, abd= 11, ER= 7, IR= 14 #F Pt is progressing well with ROM and pain. Pt still lacks significant strength in R shoulder at this time Plan Plan Plan: Continue to progress R shoulder strengthening at this time Balance/Gait/Functional tests Balance/Special Test Scores Quick DASH Score: 38.6350 Goals Goals Goal 1:: Decrease R shoulder pain x 50% to aid with sleep Goal Time Frame: 4-6 Weeks Goal Progress: Progressing Goal 2:: Increase R shoulder flex and abd ROM x 30 degrees to aid with overhead activity Goal Time Frame: 4-6 Weeks Goal Progress: Goal Met Goal 3:: Increase R shoulder strength x 10 #F to aid with RTW without limitation Goal Time Frame: 4-6 Weeks Goal Progress: Progressing Goal 4:: I with HEP Goal Time Frame: 4-6 Weeks Goal Progress: Progressing Anticipated Interventions Anticipated Interventions Patient/Client Instruction: Educate patient on: Condition and Plan of Care For the Purpose of:: To improve self management Therapeutic Exercise to Include: Strength training, Endurance training, Postural training, Flexibilty training, Passive ROM, Active ROM and Scapular Strength/Stabilization Cryotherapy (ice pack, ice massage): Yes For the Purpose of:: To decrease pain Re-Evaluation Ending Re-evaluation ending: Please do not hesitate to contact me at [phone] by phone or if you have questions or concerns regarding this new plan of care! Sincerely, Gio Gonzalez, PT, ATC
--- NOTE | 2024-01-08 10:47 | HP.PTREVAL ---
Re-Evaluation Intro: Dr. Ruy Guzman, DO, It has been my pleasure to treat KETAN COTTON over the last 14 visits for R scapular Fx, Fx T3 and T7. Please see the progress note below for an update on the physical therapy plan of care! Subjective Subjective: Pt. reports he ended his last stint of PT and was doing well, but still has some pain at mid thoracic region. pt. has increased R shoulder with lifting upto 6-7/10. Pt. continues to have thoracic spine stiffness that bothers him with working. Pt. reports a feeling for chronic stiffness throughout his thoracic spine. Objective Objective/Function: ROM: R shoulder: full ROM with mild increase NW with OP in flexion and IR motions. thoracic spine: ext mod loss Increase better, rotation mod loss bilaterally increase NW, flexion nil loss NE. MMT: Pt. has full strength throughout B shoulders, except 11.5# of R shoulder abd and 21.9# of L shoulder. RTC seems good no signs of RTC pathology. PAs: Pt. has stiffness throughout thoracic spine, decrease better with mobility. Pt. also has tenderness at his R lateral epicondyle, seems to be like epicondylitis, I gave him a few stretches to work on this as well. I would like to work on thoracic mobility both manually and with stretching to get back to all activities without limitations. Plan Plan Plan: Asking for 8 PT visits 1-2 a week for 4-6 weeks. Focus on manual thoracic mobility grade III/IV. Thoracic mobility stretching into extension and rotation. Mid trap strengthening, rhomboid strengthening. Add in R lateral extensor stretching and ease into eccentrics of lateral extensor mech of R forearm. Balance/Gait/Functional tests Balance/Special Test Scores Quick DASH Score: 38.6350 Goals Goals Goal 1:: Decrease R shoulder pain x 50% to aid with sleep Goal Time Frame: 4-6 Weeks Goal Progress: Goal Met Goal 2:: Increase R shoulder flex and abd ROM x 30 degrees to aid with overhead activity Goal Time Frame: 4-6 Weeks Goal Progress: Goal Met Goal 3:: Increase R shoulder strength x 10 #F to aid with RTW without limitation Goal Time Frame: 4-6 Weeks Goal Progress: Progressing Goal 4:: I with HEP Goal Time Frame: 4-6 Weeks Goal Progress: Progressing Goal 5:: NEW GOAL: Pt. to have increased thoracic mobility to full without increase in symptoms. Goal Time Frame: 4-6 Weeks Goal 6:: NEW GOAL: Pt. to complete all work duties without increase in thoracic symptoms. Goal Time Frame: 4-6 Weeks Goal Progress: Progressing Anticipated Interventions Anticipated Interventions Patient/Client Instruction: Educate patient on: Condition and Plan of Care For the Purpose of:: To improve self management Therapeutic Exercise to Include: Strength training, Endurance training, Postural training, Flexibilty training, Passive ROM, Active ROM and Scapular Strength/Stabilization Cryotherapy (ice pack, ice massage): Yes For the Purpose of:: To decrease pain Re-Evaluation Ending Re-evaluation ending: Please do not hesitate to contact me at [phone] by phone or if you have questions or concerns regarding this new plan of care! Sincerely, Julito Dee DPT
== END 2024-02-05 19:00 | disposition home or self-care (01) ==
LOC: PT 10:30
PROVIDERS: PCP Family Medicine; Referring Provider Orthopaedic Surgery; Visit Provider Orthopaedic Surgery
DX: S42.101D Fracture of unspecified part of scapula, right shoulder, subsequent encounter for fracture with routine healing (principal); S22.030D Wedge compression fracture of third thoracic vertebra, subsequent encounter for fracture with routine healing; S22.060D Wedge compression fracture of T7-T8 vertebra, subsequent encounter for fracture with routine healing
CPT/HCPCS: 97110; 97140; 97161; 97164; 97530

== ENCOUNTER → 2024-04-12 | Outpatient (CLI) | payer MEDICARE, SELFPAY ==
[2023-09-22 08:46] VITALS: BMI 29.4
--- NOTE | 2024-04-12 10:56 | MRI_ITS ---
STUDY: MRI THORACIC SPINE WITHOUT CONTRAST REASON FOR EXAM: Male, 68 years old. pain TECHNIQUE: Standardized fat and water weighted pulse sequences were obtained in the sagittal and axial planes. COMPARISON: None. FINDINGS: Normal kyphosis of the thoracic spine. There is no substantial scoliosis. There is mild chronic wedging of the superior endplate of T7 with degenerative endplate changes and Schmorl''s node deformity. There are also degenerative endplate changes of the superior endplates of T5, T3 and T2. The disc space heights are well-maintained although there is mild multilevel disc degeneration. . There is no focal disc protrusion. Normal central canal and intervertebral neural foramina at the corresponding levels. Normal visualized thoracic cord. Normal conus medullaris that terminates at the . The soft tissue structures are unremarkable. MRI/Spine Thoracic (Routine) IMPRESSION: Mild spondylosis. No acute fracture or other significant bone pathology. No significant disc disease, spinal stenosis or cord compression Electronically Signed: Umer Cabral MD at 16:15 EDT ,
--- NOTE | 2024-04-12 10:56 | MRI_ITS ---
STUDY: MRI RIGHT SHOULDER REASON FOR EXAM: Male, 68 years old. Pain. TECHNIQUE: Standardized fat and water weighted pulse sequences were obtained in all 3 orthogonal planes. COMPARISON: Right shoulder radiographs dated 11/06/2023. FINDINGS: There is mild supraspinatus, infraspinatus, and subscapularis tendinosis without a full-thickness tear. Normal teres minor tendon. Normal supraspinatus muscle. Normal infraspinatus muscle. Normal subscapularis muscle. Normal teres minor muscle. Normal glenohumeral articulation. There is enthesopathic subcortical cyst formation of the greater tuberosity of the humeral head. Normal biceps labral complex. Normal intracapsular long biceps tendon. Normal labrum. Normal capsulo-ligamentous complex. Normal rotator interval. There is mild hypertrophic acromioclavicular arthrosis. There is a Type II morphology (curved), with a neutral orientation. There is no subacromial-subdeltoid bursal fluid. Normal visualized coracohumeral and coracoacromial ligaments. Normal quadrilateral space. Normal axillary space. Normal deltoid muscle. Normal trapezius muscle. MRI/Upper Ext Joint Only(Routine) IMPRESSION: Mild supraspinatus, infraspinatus, and subscapularis tendinosis without a full-thickness tear. Mild hypertrophic acromioclavicular arthrosis. Electronically Signed: Claudio Valiente MD at 12:51 EDT ,
== END | disposition home or self-care (01) ==
LOC: MRI 10:55
PROVIDERS: PCP Family Medicine; Referring Provider Orthopaedic Surgery; Visit Provider Orthopaedic Surgery
DX: S22.060D Wedge compression fracture of T7-T8 vertebra, subsequent encounter for fracture with routine healing (principal); M75.51 Bursitis of right shoulder; X58.XXXD Exposure to other specified factors, subsequent encounter
CPT/HCPCS: 72146; 73221

== ENCOUNTER → 2024-07-22 | Outpatient (CLI) | payer MEDICARE, SELFPAY ==
[2023-09-22 08:46] VITALS: BMI 29.4
[2024-07-22 13:37] LABS: Absolute Lymphocyte Count 1.37 X10^3/uL (0.83-4.51); Absolute Neutrophil Count 5.1 X10^3/uL (2.0-7.7); Basophil# 0.03 X10^3/uL; Basophil% 0.4 % (0-1); Eosinophil# 0.15 X10^3/uL; Hematocrit 46.9 % (40-54); Hemoglobin 15.5 g/dL (13.0-16.5); Lymphocyte # 1.37 X10^3/ul (0.83-4.51); Mean Corpuscular Hgb 30.5 pg (27.0-32.0); Mean Corpuscular Volume 92.1 fL (80-94); Mean Platelet Vol. 10.8 fl (6.2-12.0); Monocyte# 0.92 X10^3/uL; Monocyte% 12.1 % (0-10); NRBC Flagged by Analyzer 0 % (0-5); Neutrophil # 5.11 X10^3/uL (2.7-7.7); Neutrophil % 67.2 % (47-70); Platelet Count 199 K/mm3 (150-450); RBC Distribution Width CV 12.5 % (11.6-14.6); RBC Distribution Width SD 42.4 fl (35.1-43.9); Red Blood Count 5.09 M/mm3 (4.6-6.2); White Blood Count 7.6 K/mm3 (4.4-11.0)
[2024-07-22 14:09] LABS: AST(SGOT) 17 U/L (15-37); Alanine Aminotransfer ALT/SGPT 27 U/L (16-61); Albumin, Serum 3.5 g/dL (3.2-5.0); Alkaline Phosphatase 71 U/L (45-117); Anion Gap 3 (5-15); BUN 14 mg/dL (7-18); BUN/Creat Ratio 14.7 RATIO (10-20); Calcium,Total 9.3 mg/dL (8.5-10.1); Chloride 108 mmol/L (98-107); Cholesterol 149 mg/dL (200); Creatinine, Serum 0.95 mg/dL (0.70-1.30); EST Glomerular Filtration Rate 84 mL/min (>60); Est Glom Filt Rate - Afr Amer 101 mL/min (>60); Globulin 3.5 g/dL (2.2-4.2); Glucose 84 mg/dL (74-106); High Density Lipoprotein 48 mg/dL; Potassium 4.4 mmol/L (3.5-5.1); Sodium Level 143 mmol/L (136-145); Triglycerides 215 mg/dL; Very Low Density Lipoprotein 43 mg/dL (5-40)
[2024-07-22 14:10] LABS: BNP,B-Type NATRIURETIC PEPTIDE 32.3 pg/mL (0-100)
== END | disposition home or self-care (01) ==
PROVIDERS: PCP Family Medicine; Referring Provider Physician Assistant Medical; Visit Provider Physician Assistant Medical
DX: R06.02 Shortness of breath (principal); E78.5 Hyperlipidemia, unspecified
CPT/HCPCS: 36415; 80053; 80061; 83880; 85025

== ENCOUNTER → 2024-08-08 | Outpatient (CLI) | payer MEDICARE, SELFPAY ==
[2023-09-22 08:46] VITALS: BMI 29.4
--- NOTE | 2024-08-09 15:55 | STRESSREP_ITS ---
Stress Test Report Date: 08/08/2024 Procedure: Exercise tolerance test/imaging study Indications: Shortness of breath Consent: Per the patient Procedure: The patient exercised on a Amor protocol for 7 minutes and 25 seconds achieving a peak heart rate of 144 bpm (94% predicted maximal heart rate) with a peak blood pressure 190/80 mmHg and a peak MET capacity of 10.1 METs. The baseline ECG demonstrated normal sinus rhythm. The peak exercise ECG demonstrated no significant ischemic ST-T changes. EKG during recovery revealed no significant ischemic ST-T changes [There were no significant cardiac dysrhythmias pretest, during exercise, or recovery]. The functional capacity was considered normal for age. There was [no complaint of chest discomfort during exercise or recovery]. The examination was discontinued secondary to shortness of breath. Impression: 1. Technically adequate (percent predicted maximal heart rate greater than 85%) exercise tolerance test 2. Stress test is negative for exercise-induced EKG changes of ischemia 3. The test test is negative for exercise-induced chest pain 4. Functional capacity is normal for age 5. Nuclear images pending Myocardial perfusion imaging study: Technique: The patient was injected with 14.3 mCi of technetium 99m Cardiolite and subsequently rest SPECT Cardiolite nuclear imaging was obtained in the horizontal long, vertical long, and short axis views. The patient exercised on a Amor protocol. Please see above for details. The patient was injected with 43.9 mCi of technetium 99m Cardiolite and subsequently stress SPECT Cardiolite nuclear imaging was obtained in the horizontal long, vertical long, and short axis views. A gated Cardiolite study at peak stress was obtained. Interpretation: Rest and stress SPECT Cardiolite nuclear imaging status post realignment, normalization, and attenuation correction, demonstrates mild inferior perfusion defect on the rest images that is better on the stress images. The gated Cardiolite study demonstrates no significant regional wall motion abnormalities. These findings are suggestive of diaphragmatic attenuation artifact. No evidence of significant ischemia or infarction. The reported LVEF is 60%. Impression: 1. There is no evidence of significant ischemia or infarction. 2. The gated Cardiolite study reports an LVEF of 60%. This note was generated with [employer] software. It may contain incorrect words, spelling, and punctuation that were not noted in checking the note before signing.
== END | disposition home or self-care (01) ==
LOC: CVS 06:30
PROVIDERS: PCP Family Medicine; Referring Provider Physician Assistant Medical; Visit Provider Physician Assistant Medical
DX: I25.10 Atherosclerotic heart disease of native coronary artery without angina pectoris (principal); R06.02 Shortness of breath; E78.5 Hyperlipidemia, unspecified; Z95.5 Presence of coronary angioplasty implant and graft
CPT/HCPCS: 78452; 93017; A9500; A4216

== ENCOUNTER 2025-02-20 19:39 | Emergency (ER) | payer MEDICARE, SELFPAY ==
[2023-09-22 08:46] VITALS: BMI 29.4
[2025-02-20 19:41] VITALS: BP 128/86; PULSE 76; RESP 18; TEMP 37.9; O2SAT 97; BMI 29.7
[2025-02-20 19:43] VITALS: BP 128/86; PULSE 73; RESP 18; TEMP 37.9; O2SAT 97
--- NOTE | 2025-02-20 19:52 | EX.ED.DYSGE1 ---
HPI History of Present Illness Chief Complaint: Ear Problem Detail of Chief Complaint: Painful swollen right ear with lymph node pain and swelling Informant: patient and spouse/S.O. Onset/Context/Timing Onset: Days Context: Sudden Onset Timing: Continuous Quality: Swelling of the right ear and pain Location: Right Current Severity: Mild Maximum Severity: Moderate Worsened by: Palpation of lymph nodes Relieved by: Nothing Associated Symptoms Associated Symptoms: Increased swelling redness and temperature 100.2 Narrative Narrative: Patient is a 69-year-old male. He does not have history of diabetes and is on no immunosuppressive meds. He was seen this afternoon at urgent care. Diagnosed with infection. He was prescribed cephalexin 500 mg. He took a dose at 4:00 and a dose prior to arrival. He denies any other symptoms. Patient had hives to amoxicillin when he was younger. He has taken cephalexin and other cephalosporins without reaction. He does have history of hyperlipidemia, non-ST elevation PA, compression fracture thoracic spine and V. tach. Prior similar symptoms: Yes Recent Illness/Hospitalization: Yes [facility] Medical History Chest pain Hyperlipidemia Atherosclerotic heart disease of [place] coronary artery without angina pectoris Non-ST elevation PA (NSTEMI) Hemorrhoids Enthesopathy of hip region GERD (gastroesophageal reflux disease) Generalized anxiety disorder History of vitamin D deficiency Home Medications ?Medication ?Instructions ?Recorded ?Last Taken ?Type multivitamin 1 tab PO DAILY Check with primary 07/16/22 Unknown History doctor tamsulosin 0.4 mg capsule 0.4 mg PO DAILY Check with primary 07/16/22 Unknown History doctor aspirin 81 mg tablet,delayed 81 mg PO BREAKFAST #30 tabs 08/19/22 Unknown Rx release diclofenac sodium 1 % topical gel 2 g topical ONCE PRN skin 01/09/23 Unknown History irritation albuterol sulfate 90 mcg/actuation 2 puff inhalation Q6H PRN 06/15/23 Unknown History aerosol inhaler shortness of breath or wheezing nitroglycerin 0.4 mg sublingual 0.4 mg sublingual Q5M PRN 07/05/23 Unknown Rx tablet Cardiac/Chest Pain #25 tabs loratadine 10 mg tablet 10 mg PO DAILY Allergies 04/15/24 Unknown History fluticasone 250 mcg-salmeterol 50 1 ea inhalation BID PRN shortness 07/15/24 Unknown History mcg/dose blistr powdr for of breath or wheezing inhalation metoprolol succinate 25 mg 25 mg PO DAILY #90 tabs 08/16/24 Unknown Rx tablet,extended release 24 hr (Toprol XL) losartan 25 mg tablet 25 mg PO DAILY #90 tabs 10/23/24 Unknown Rx rosuvastatin 20 mg tablet See Rx Instructions .Route 10/23/24 Unknown Rx .COMPLEX #90 tabs ferrous sulfate 325 mg (65 mg 325 mg PO QDAY 02/19/25 Unknown History iron) tablet (Feosol) esomeprazole magnesium 40 mg 40 mg PO Q24H 02/20/25 Unknown History capsule,delayed release Allergy/AdvReac Type Severity Reaction Status Date / Time erythromycin base Allergy Intermediate Nausea/Vom/ Verified 02/20/25 19:40 Diarrhea niacin (From Niaspan Allergy Intermediate Hives Verified 02/20/25 19:40 Extended-Release) Penicillins Allergy Unknown Verified 02/20/25 19:40 atorvastatin AdvReac Intermediate myalgias Verified 02/20/25 19:40 cerivastatin (From Baycol) AdvReac Intermediate leg cramps Verified 02/20/25 19:40 Family History Father Alzheimer's disease Mother CAD (coronary artery disease) Diabetes Heart disease open heart surgery History of motor vehicle accident Surgical History Stented coronary artery (07/18/22) History of foot surgery (~07/2019) History of varicose vein stripping History of surgery on upper extremity History of hemorrhoidectomy History of open reduction and internal fixation (ORIF) procedure History of umbilical hernia repair History of tonsillectomy H/O arthroscopy of knee S/P excision of neuroma Social History Smoking Status: Never smoker second hand exposure: Yes alcohol intake: current alcohol intake frequency: a few times a month substance use type: does not use caffeine: Yes Type: coffee Number of servings: 1 ROS ROS ED Constitutional Constitutional ED: Reports chills and fever(s); Denies subjective or sweats Eyes Eyes: Denies blurry vision or change in vision ENT ENT ED: Reports ear pain right; Denies rhinorrhea or sore throat Cardiovascular Cardiovascular: Denies chest pain Respiratory/Chest Respiratory/Chest: Denies dyspnea Gastrointestinal Gastrointestinal: Denies nausea or vomiting Hematologic/Lymphatic Hematologic/Lymphatic: Reports systems reviewed and no addt'l complaints, except as documented Allergic/Immunologic Allergic/Immunologic ED: Denies mouth swelling or tongue swelling EXAM Physical Exam Const Vital Signs: 02/20/25 19:41 02/20/25 19:43 Temperature 100.2 F H 100.2 F H Temperature Source Oral Oral Pulse Rate 76 73 Respiratory Rate 18 18 Blood Pressure 128/86 H 128/86 H Blood Pressure Mean 100 100 Pulse Ox 97 97 Oxygen Delivery Method Room Air Room Air Positive well nourished and well developed Constitutional Narrative: Vitals are remarkable for temperature of 100.2. He may not be tachycardic since he is on beta-oscar. General Appearance ED: well developed; Negative for pallor HEENT Reports TM's clear and moist mucous membranes HEENT Narrative: Head is atraumatic normocephalic. Right ear is swollen compared to left. Right ear it is erythematous warm to touch. There is no discomfort pulling on the auricle portion of the tragus. External auditory canal is normal. TM is normal. Patient does have cervical lymphadenopathy. tenderness Tympanic Membrane ED: Yes TM's clear Eyes PERRL and EOMs intact bilaterally General Eye ED: Negative for pale conjunctiva or scleral icterus Neck No no lymphadenopathy, supple and no JVD General: tenderness Resp normal respiratory effort and clear to auscultation bilaterally Cardio regular rate, regular rhythm, S1 normal heart sound, S2 normal heart sound and no murmurs Psych mental status grossly normal Skin No no rashes or lesions noted, no wounds and skin turgor normal General Skin Exam: Negative for jaundice or pallor MDM MDM MDM Narrative Medical decision making narrative: Patient has cellulitis of his ear. There is no evidence or suggestion of a parotid gland infection. There is no evidence or suggestion of external otitis. The patient's symptoms of gotten worse we will obtain blood work to assess for endorgan dysfunction and assess likelihood of successful outpatient therapy. He will receive a dose of IV antibiotics in the emergency department. Lab Data Attestation: I reviewed the patient's lab results. Lab results narrative: CBC is unremarkable. Basic metabolic panel is unremarkable. Glucose elevated 135. Lactates normal. Labs: Laboratory Results - last 24 hr 02/20/25 20:00 WBC 8.0 RBC 4.73 Hgb 14.7 Hct 43.3 MCV 91.5 MCH 31.1 MCHC 33.9 RDW Std Deviation 42.5 RDW Coeff of Tere 12.8 Plt Count 179 MPV 10.1 Immature Gran % (Auto) 0.100 Neut % (Auto) 66.2 Lymph % (Auto) 16.8 L Ramsey % (Auto) 15.5 H Eos % (Auto) 1.0 Baso % (Auto) 0.4 Absolute Neuts (auto) 5.3 Absolute Lymphs (auto) 1.35 Nucleated RBC % 0 Sodium 140 Potassium 4.3 Chloride 104 Carbon Dioxide 25.4 Anion Gap 11 BUN 18 Creatinine 1.00 Estim Creat Clear Calc 80.23 Est GFR (MDRD) Non-Af 82 BUN/Creatinine Ratio 18.4 Glucose 135 H Lactic Acid 1.4 Calcium 9.2 Treatment and Re-Evaluation :: Since he has a normal white count he will be discharged to home. Patient was told that it is not unusual for things to get worse initially. Need to give the antibiotic time to work. He was told by the practitioner that saw him that if he gets worse to come in. Discharge Plan Triage Chief Complaint: Ear Problem ED Provider: Juventino Naranjo Dx/Rx/DC Orders Clinical Impression: Cellulitis of right ear, Fever in adult Instructions: ED Cellulitis Prescriptions: No Action diclofenac sodium 1 % gel 2 g topical ONCE PRN (Reason: skin irritation) albuterol sulfate 90 mcg/actuation HFA aerosol inhaler 2 puff inhalation Q6H PRN (Reason: shortness of breath or wheezing) loratadine 10 mg tablet 10 mg PO DAILY fluticasone propion-salmeterol 250-50 mcg/dose blister with device 1 ea inhalation BID PRN (Reason: shortness of breath or wheezing) ferrous sulfate [Feosol] 325 mg (65 mg iron) tablet 325 mg PO QDAY multivitamin Tablet 1 tab PO DAILY tamsulosin 0.4 mg capsule 0.4 mg PO DAILY esomeprazole magnesium 40 mg capsule,delayed release(DR/EC) 40 mg PO Q24H aspirin 81 mg tablet,delayed release (DR/EC) 81 mg PO BREAKFAST Qty: 30 11RF nitroglycerin 0.4 mg tablet, sublingual 0.4 mg sublingual Q5M PRN (Reason: Cardiac/Chest Pain) Qty: 25 3RF metoprolol succinate [Toprol XL] 25 mg tablet extended release 24 hr 25 mg PO DAILY Qty: 90 3RF rosuvastatin 20 mg tablet See Rx Instructions .ROUTE .COMPLEX Qty: 90 3RF Dose Instruction: TAKE 1 TABLET AT BEDTIME Rx Instructions: TAKE 1 TABLET AT BEDTIME losartan 25 mg tablet 25 mg PO DAILY Qty: 90 3RF Primary Care Provider: Blake Kuhn Referrals: Blake Kuhn MD [Primary Care Provider] - 3-5 Days if not improving Activity Restrictions/Additional Instructions: 1. Take the antibiotic you are prescribed until gone. 2. If there is no improvement in 48 hours follow-up with Dr. Kuhn or return to the emergency department Print Language: [place] Disposition Disposition: Home, Self Care
[2025-02-20 20:10] LABS: Hematocrit 43.3 % (40-54); Hemoglobin 14.7 g/dL (13.0-16.5); Immature Granulocytes Count 0.010 X10^3/uL (0.0-0.0); Mean Corp Hgb Conc 33.9 g/dL (32-36); Mean Corpuscular Volume 91.5 fL (80-94); Mean Platelet Vol. 10.1 fl (6.2-12.0); NRBC Flagged by Analyzer 0 % (0-5); Platelet Count 179 K/mm3 (150-450); RBC Distribution Width CV 12.8 % (11.6-14.6); RBC Distribution Width SD 42.5 fl (35.1-43.9); Red Blood Count 4.73 M/mm3 (4.6-6.2); White Blood Count 8.0 K/mm3 (4.4-11.0)
[2025-02-20 20:36] LABS: Anion Gap 11 (5-15); BUN 18 mg/dL (4-19); BUN/Creat Ratio 18.4 RATIO (10-20); Calcium,Total 9.2 mg/dL (7.6-11.0); Carbon Dioxide 25.4 mmol/L (21.0-32.0); Chloride 104 mmol/L (98-108); Estimated Creatinine Clearance 80.23 ml/min (50-250); Glucose 135 mg/dL (70-99); Potassium 4.3 mmol/L (3.3-5.1)
[2025-02-20 20:45] VITALS: BP 126/72; PULSE 71; PULSE 73; RESP 18; TEMP 38.3; O2SAT 97
== END 2025-02-20 21:24 | disposition home or self-care (01) ==
PROVIDERS: Emergency Provider Emergency Medicine; PCP Family Medicine; Visit Provider Emergency Medicine
DX: H60.11 Cellulitis of right external ear (principal); I25.10 Atherosclerotic heart disease of native coronary artery without angina pectoris; E78.5 Hyperlipidemia, unspecified; I25.2 Old myocardial infarction; K21.9 Gastro-esophageal reflux disease without esophagitis; R50.9 Fever, unspecified
CPT/HCPCS: 80048; 83605; 85025; 96365; 99283; A4216

== ENCOUNTER → 2025-04-04 | Outpatient (CLI) | payer MEDICARE, SELFPAY ==
[2023-09-22 08:46] VITALS: BMI 29.4
--- NOTE | 2025-04-04 06:01 | ECHOD_ITS ---
Reason For Study Reason For Study: ARRHYTHMIA Procedure This was a 2D Doppler, Color Flow transthoracic echocardiogram. Exam performed in department. Left Ventricle Normal LV size. The estimated ejection fraction is 55 %. No evidence for diastolic dysfunction. No regional wall motion abnormalities noted. Right Ventricle Normal RV size. Normal systolic function. Atria Normal left atrium. The right atrium is mildly enlarged. No doppler evidence for ASD. Mitral Valve There is no mitral valve stenosis. Mild (1+) mitral valve insufficiency. Tricuspid Valve There is no tricuspid stenosis. Trivial tricuspid valve insufficiency. Pulmonary artery systolic pressure is 40 mmHg. Aortic Valve Trisinus/trileaflet aortic valve. There is no aortic stenosis. No aortic valve insufficiency. Pulmonic Valve There is no pulmonic valvular stenosis. No pulmonic valve insufficiency. Great Vessels Normal sized aortic root. Pericardium/Pleural No pericardial effusion. MMode/2D Measurements & Calculations LVIDd: 5.4 cm IVSd: 1.00 cm LVOT diam: 2.3 cm LVIDs: 3.6 cm LVPWd: 0.96 cm LVOT area: 4.1 cm2 RVDd: 3.8 cm FS: 34.5 % Ao root diam: 3.3 cm LAV(MOD-bp): 61.6 ml LVAd ap4: 30.4 cm2 LAV(MOD-bp) Indexed: 29.6 ml/m2 LVLd ap4: 8.3 cm LAV(MOD-sp2): 59.6 ml EDV(MOD-sp4): 92.8 ml LAV(MOD-sp4): 59.1 ml EDV(sp4-el): 95.0 ml LVAs ap4: 16.9 cm2 LVLs ap4: 6.6 cm ESV(MOD-sp4): 37.6 ml ESV(sp4-el): 36.6 ml EF(MOD-sp4): 59.5 % EF(sp4-el): 61.5 % LVAd ap2: 26.2 cm2 SV(MOD-sp4): 55.2 ml SV(MOD-sp2): 41.9 ml LVLd ap2: 8.0 cm SI(MOD-sp4): 26.5 ml/m2 SI(MOD-sp2): 20.1 ml/m2 EDV(MOD-sp2): 71.8 ml EDV(sp2-el): 73.4 ml LVAs ap2: 14.7 cm2 LVLs ap2: 6.2 cm ESV(MOD-sp2): 30.0 ml ESV(sp2-el): 29.5 ml EF(MOD-sp2): 58.3 % SV(sp4-el): 58.4 ml LA dimension(2D): 4.3 cm LA A4 area: 20.6 cm2 RA A4 area: 22.8 cm2 TAPSE: 2.1 cm Time Measurements MV dec time: 0.24 sec Doppler Measurements & Calculations MV E max ethan: 68.1 cm/sec Lat Peak E' Ethan: 12.9 cm/sec Med Peak E' Ethan: 8.3 cm/sec MV A max ethan: 55.6 cm/sec E/E' lat: 5.3 E/E' med: 8.2 MV E/A: 1.2 MV V2 max: 76.6 cm/sec Ao V2 max: 152.0 cm/sec MV max P.3 mmHg MV dec slope: 285.0 cm/sec2 Ao max P.2 mmHg MV V2 mean: 50.1 cm/sec Ao V2 mean: 101.9 cm/sec MV mean P.1 mmHg Ao mean P.8 mmHg MV V2 VTI: 24.1 cm Ao V2 VTI: 35.1 cm AV (velocity ratio): 0.83 MVA(VTI): 5.0 cm2 LU(I,D): 3.4 cm2 LU(V,D): 3.5 cm2 LV V1 max: 129.3 cm/sec MR max ethan: 388.0 cm/sec SV(LVOT): 120.9 ml LV V1 max P.7 mmHg MR max P.2 mmHg LV V1 mean P.4 mmHg LV V1 mean: 85.5 cm/sec LV V1 VTI: 29.2 cm PA V2 max: 118.4 cm/sec TR max ethan: 236.1 cm/sec PA V2 mean: 77.9 cm/sec TR max P.7 mmHg ECHO/Echo Complete Interpretation Summary The estimated ejection fraction is 55 %. No evidence for diastolic dysfunction. The right atrium is mildly enlarged. Mild (1+) mitral valve insufficiency. Ordering Physician: Slade Carey Referring Physician: Blake Kuhn Performed By: Kirsten Fisher RDCS, RVT
--- OUTSIDE RECORDS SUMMARY | 2025-04-04 06:03 | XMS RPT_ITS | CCD ---
Author Organization [facility] Care Team Providers Care Director Strategic Planning Name Role Phone Yousif Franco MD Primary Care Provider Blake Wilcox MD Primary Care Provider Dr. Carl Franco Primary Care Provider [phone] Dr. Lavonne Hoff Emergency Provider Dr. Ruy Null Provider Dr. Ruy Null Other Provider Dr. Fernando Shelton Other Provider Dr. Brown Lorenz Attending Provider Dr. Brown Lorenz Other Provider Dr. Fernando Shelton Attending Provider Dr. Ethan Bower Attending Provider Dr. Carl Franco Referring Provider Unruly [place], CLEM Marquez Attending Provider Dr. Blake Wilcox Primary Care Provider Dr. Blake Wilcox Referring Provider Geovanna CAR RENTAL SALES ASSISTANT, CAR RENTAL SALES ASSISTANT-C Jnaine Attending Provider Dr. Omid Steinberg Attending Provider Dr. Carl Franco Primary Care Provider Dr. Lavonne Hoff Emergency Provider Dr. Ruy Null Provider Dr. Ruy Null Other Provider Nikita, Dr. King Other Provider Kelechi, Dr. Dasilva Attending Provider Kelechi, Dr. Dasilva Other Provider Nikita, Dr. King Attending Provider Sathish, Dr. Long Attending Provider Dr. Carl Franco Referring Provider Unruly [place], [place] Cinthya Marquez Attending Provider Jeri, Dr. Lozano Primary Care Provider Jeri, Dr. Lozano Referring Provider Geovanna CAR RENTAL SALES ASSISTANT, CAR RENTAL SALES ASSISTANT-C Janine Attending Provider Dr. Omid Steinberg Attending Provider Dr. Carl Franco Primary Care Provider Jeri, Dr. Lozano Primary Care Provider Jeri, Dr. Lozano Referring Provider Dr. Rocco Irene Attending Provider [place]ruly [place], [place] Cinthya Marquez Attending Provider Jeri, Dr. Lozano Referring Provider Geovanna CAR RENTAL SALES ASSISTANT, CAR RENTAL SALES ASSISTANT-C Janine Attending Provider Blake Wilcox MD Primary Care Provider Yousif Franco MD Primary Care Provider Hanh OXYACETYLENE WELDER.CHIEF OPERATOR HYDROFORMER, Miesha Unavailable Ferny OXYACETYLENE WELDER.CHIEF OPERATOR HYDROFORMER, Tara A Unavailable Jeri TRUONG, Dr. Lozano Primary Care Provider Jeri TRUONG, Dr. Lozano Referring Provider Keysha AMANDA-C, Laureen Marquez Attending Provider Cherry TRUONG, Dr. June Attending Provider Jeri TRUONG, Dr. Lozano Primary Care Provider Dr. Blake Wilcox MD Referring Provider Dr. Juventino Naranjo MD Emergency Provider TARA CHARLES Attending Unavailable JERI, BLAKE J Primary Care Unavailable JERI, BLAKE J Primary Care Unavailable CAROLYNE GILLIS Referring Unavailable JERI, BLAKE J Primary Care Unavailable JERI, BLAKE J Primary Care Unavailable CHARLIE TIPTON Attending Unavailable JERI, BLAKE Rivera Primary Care Unavailable CHARLIE TIPTON Referring Unavailable JERI, BLAKE J Primary Care Unavailable JERI, BLAKE J Attending Unavailable JERI, BLAKE J Primary Care Unavailable JERI, BLAKE J Referring Unavailable JERI, BLAKE J Primary Care Unavailable JERI, BLAKE J Referring Unavailable JERI, BLAKE Rivera Primary Care Unavailable JERI, BLAKE J Referring Unavailable JERI, BLAKE J Primary Care Unavailable JERI, BLAKE J Attending Unavailable JERI, BLAKE Rivera Primary Care Unavailable JERI, BLAKE J Referring Unavailable JERI, BLAKE Rivera Primary Care Unavailable JERI, BLAKE Rivera Referring Unavailable JERI, BLAKE Rivera Primary Care Unavailable JERI, BLAKE J Primary Care Unavailable JOSE PABLO Attending Unavailable [place], Blake Referring Unavailable Jeri, Blake Primary Care Unavailable Slade Carey Attending Unavailable [place], Blake Primary Care Unavailable Juventino Naranjo Attending Unavailable Jeri, Blake Primary Care Unavailable Slade Carey Attending Unavailable Slade Carey Referring Unavailable [place], Blake Primary Care Unavailable Ruy Guzman Attending Unavailable Thomas, Ruy Referring Unavailable Cinthya Gotti Referring Unavail able Jeri, Blake Primary Care Unavailable Cinthya Gotti Attending Unavail able Cinthya Gotti Referring Unavail able Jeri, Blake Primary Care Unavailable Cinthya Gotti Attending Unavail able [place], Blake Primary Care Unavailable Jeri, Blake Referring Unavailable Janine Austin NP Attending Unavailable [place], Blake Primary Care Unavailable Lety Odonnell Attending UnavailCinthya Hardin Referring Unavail able Cinthya Gotti Consulting Unavail able [place], Blake Primary Care Unavailable Lety Odonnell Attending UnavailCinthya Hardin Referring Unavail able Jeri, Blake Primary Care Unavailable Jeri, Blake Referring Unavailable Ruy Guzman Attending Unavailable Jeri, Blake Primary Care Unavailable Jeri, Blake Referring Unavailable Janine Austin NP Attending Unavailable Jeri, Blake Primary Care Unavailable Blake Wilcox Referring Unavailable Cinthya Gotti Attending Unavail able Blake Wilcox Referring Unavailable Blake Wilcox Primary Care Unavailable Laureen Chopra Attending Unavailable Allergies Allergy Classification Reported Allergen(s) Allergy Type Date of Onset Reaction(s) Facility cerivastatin (1 source) cerivastatin Drug Allergy 07-05-20 23 Intolerance [facility] Work Phone: [phone] HMG-CoA Reductase Inhibitors (statins) (1 source) atorvastatin Drug Allergy 08-30-19 06 Intolerance [facility] Macrolides (antibiotic) (1 source) Erythromycin Drug Allergy 08-30-19 06 Intolerance [facility] Niacin (1 source) Niacin Drug Allergy 10-05-[address] [facility] Penicillins (antibiotic) (1 source) Penicillins Drug Allergy 08-30-[address] [facility] (20 sources) atorvastatin; Translations: [ATORVASTATIN CALCIUM] Drug Allergy 08-30-19 06 Intolerance [facility] (20 sources) cerivastatin Drug Allergy 09-07-19 08 Intolerance [facility] Work Phone: (20 sources) Erythromycin; Translations: [ERYTHROMYCIN] Drug Allergy 08-30-19 Intolerance [facility] Work Phone: (20 sources) Niacin; Translations: [NIACIN] Drug Allergy 10-05-[address] [facility] Work Phone: [phone] (3 sources) Penicillins; Translations: [PENICILLINS] Drug Intolerance 08-30-[address] [facility] (20 sources) Environmental allergies [Other] Propensity to adverse reactions 07-02-20 09 [facility] (12 sources) atorvastatin Drug Allergy 10-26-19 21 myalgias [facility] (12 sources) cerivastatin Drug Allergy 10-26-19 21 leg cramps [facility] (20 sources) Penicillins Drug Intolerance 08-30-[address] [facility] (11 sources) Penicillins Allergy to substance 07-16-20 22 Unknown [facility] (20 sources) cerivastatin; Translations: [BAYCOL] Drug Allergy 07-05-20 23 Intolerance [facility] Work Phone: [phone] (20 sources) Seasonal allergy; Translations: [SEASONAL ALLERGIES] Propensity to adverse reactions 07-05-20 23 Other: See Comments [facility] Work Phone: (10 sources) Penicillins Drug Intolerance 08-30-19 Hives [facility] (1 source) atorvastatin Drug Allergy 02-21-20 [facility] (1 source) Erythromycin Drug Allergy 02-21-20 [facility] (1 source) Niacin Drug Allergy 02-21-20 [facility] (1 source) Penicillins Drug allergy (disorder) 02-21-20 [facility] (1 source) cerivastatin Drug allergy (disorder) 02-21-20 [facility] Medications Current Medications Medication Drug Class(es) Dates Sig (Normalized) Sig (Original) [id number] 200 actuat albuterol 0.09 mg/actuat metered dose inhaler (16 sources) beta2-Adrenergic Agonist Start: 06-15-2023 Albuterol Sulfate 90 mcg/actuation HFA aerosol inhaler Active 2 NMA INHALATION EVERY 6 HOURS as needed for shortness of breath or wheezing June 15, 2023 1:00am Start: 06-15-2023 take 1 puff(s) by in halation every six hours Albuterol Sulfate Active 2 PUFF INHALATION EVERY 6 HOURS June 15, 2023 12:00am Start: 08-16-2019 End: 10-25-2020 Albuterol Sulfate 1 PUFF inh aler Discontinued 1 - 2 NMA INHALATION EVERY 4 HOURS NEEDED as needed for Allergies August 16, 2019 1:00am October 25, 2020 1:51pm Start: 08-16-2019 End: 10-25-2020 take 1 puff(s) by inhalation every four hours as needed Albuterol Sulfate Discontinued 1 - 2 PUFF INHALATION EVERY 4 HOURS NEEDED August 16, 2019 12:00am October 25, 2020 12:51pm aspirin 81 mg delayed release oral tablet (20 sources) Platelet Aggregation Inhibitor, Nonsteroidal Anti-inflammatory Drug Start: 07-19-2022 End: 08-19-2022 take 1 tablet by mouth once daily at breakfast aspirin, enteric coated (ASPIRIN, ENTERIC COATED) 81 mg EC tablet Take 81 mg by mouth daily with breakfast. 07/19/2022 Active Start: 08-16-2019 End: 08-19-2019 Aspirin (Adult Low Dose Aspi rin) 81 mg tablet,delayed release (DR/EC) Discontinued 81 mg PO DAILY August 16, 2019 1:00am August 19, 2019 3:07pm Comment on above: Take 81 mg by mouth daily with breakfast. cefuroxime 500 mg oral tablet (1 source) Cephalosporin Antibacterial Start: 06-10-20 End: 06-15-20 take 1 tablet by mouth twice daily cefUROXime (CEFTIN) 500 mg tablet Indications: Community acquired pneumonia of left lung, unspecified part of lung Take 1 tablet by mouth two times a day for 5 days. 10 tablet 06/10/2024 06/15/2024 Active cephalexin 500 mg oral capsule (2 sources) Cephalosporin Antibacterial Start: 02-21-20 End: 02-26-20 take 1 capsule by mouth four times daily cephALEXin (KEFLEX) 500 mg capsule Indications: Cellulitis of skin Take 1 capsule by mouth four times daily for 5 days. 20 capsule 02/20/2025 02/25/2025 Active COMPOUNDED PRESCRIPTION (20 sources) Start: 03-22-20 COMPOUNDED PRESCRIPTION [facility] Push Brace to be used daily as directed. 1 Device 03/22/2018 Active Start: 03-22-2018 COMPOUNDED PRE SCRIPTION [facility] Push Brace to be used daily as directed. 1 Device 0 03/22/2018 Active Comment on above: [facility] Push Brace to be used daily as directed. Compression Knee Highs (20 sources) Start: 11-08-19 Compression Knee Highs Indications: Varicose veins of left leg with edema KNEE HIGH COMPRESSION STOCKINGS 20-30 MM. DX: EDEMA, varicose veins 1 Device 1 11/07/2017 Active Comment on above: KNEE HIGH COMPRESSIO N STOCKINGS 20-30 MM. DX: EDEMA, varicose veins diclofenac sodium 0.01 mg/mg topical gel (20 sources) Nonsteroidal Anti-inflammatory Drug Start: 01-10-20 apply 2 g topically once as needed Diclofenac Sodium 1 % gel Active 2 g TOPICAL ONCE as needed for skin irritation January 09, 2023 12:00am Start: 01-09-2023 apply 2 g topically once Diclo fenac Sodium Active 2 GM TOPICAL ONCE January 08, 2023 11:00pm Start: 08-16-2019 End: 10-25-2020 apply 2 g topically twice daily Diclofenac Sodium Disc ontinued 2 GM TOPICAL TWICE A DAY August 16, 2019 11:40am October 25, 2020 12:52pm Start: 08-16-2019 End: 08-16-2019 Diclofenac Sodium 100 GM gel Discontinued 100 g TP NEEDED as needed for Pain Or Fever August 16, 2019 1:00am August 16, 2019 12:41pm Start: 10-18-2014 End: 02-07-2022 apply 2 g topically every twelve hours as needed diclofenac (VOLTAREN) 1 % topical gel Apply 2 g to affected area twice daily as needed. 100 g 5 02/07/2022 Active Comment on above: Apply 2 g to affecte d area twice daily as needed. doxycycline monohydrate 100 mg oral tablet (4 sources) Tetracycline-class Drug Start: 06-10-2024 End: 06-15-2024 take 1 tablet by mouth twice daily doxycycline monohydrate 100 mg tablet Indications: Community acquired pneumonia of left lung, unspecified part of lung Take 1 tablet by mouth two times a day for 5 days. 10 tablet 06/10/2024 06/15/2024 Active Start: 04-30-2024 End: 05-10-2024 take 1 tablet by mouth twice daily doxycycline (VIBRA-TABS) 100 mg tablet Take 1 tablet by mouth two times a day for 10 days. 20 tablet 04/30/2024 05/10/2024 Active esomeprazole 40 mg delayed release oral capsule (20 sources) Proton Pump Inhibitor Start: 02-20-2025 take 1 capsule by mouth every twenty-four hours Esomeprazole Magnesium 40 mg capsule,delayed release(DR/EC) Active 40 mg PO Q24H February 20, 2025 12:00am Start: 07-16-2017 End: 12-16-2024 take 1 capsule by mouth once daily esomeprazole (NEXIUM) 40 mg capsule Indications: Gastroesophageal reflux disease without esophagitis Take 1 capsule by mouth once daily. 90 capsule 3 12/16/2024 Active Comment on above: Take 1 capsule by mo [facility] once daily. famotidine 20 mg oral tablet (20 sources) Histamine-2 Receptor Antagonist Start: 03-14-2025 End: 03-14-2026 take 1 tablet by mouth once daily at bedtime famotidine (PEPCID) 20 mg tablet Take 1 tablet by mouth daily at bedtime. 90 tablet 3 03/14/2025 03/14/2026 Active Start: 08-05-2022 End: 12-16-2024 take 1 tablet by mouth once daily Famotidine 20 mg tablet Discontinued 20 mg PO DAILY January 09, 2023 12:00am July 15, 2024 11:57am Comment on above: Take 1 tablet by [facility] daily at bedtime. ferrous sulfate 325 mg oral tablet (20 sources) Start: 02-19-2025 take 1 tablet by mouth once daily Ferrous Sulfate (Feosol) 325 mg (65 mg iron) tablet Active 325 mg PO daily February 19, 2025 12:00am Start: 07-16-2022 End: 12-18-2023 take 1 tablet by mouth once daily Ferrous Sulfate 325 mg (65 mg iron) Tablet Discontinued 325 mg PO DAILY July 16, 2022 1:00am December 18, 2023 11:06am Check with primary doctor Start: 08-06-2021 End: 12-11-2023 take 1 tablet by mouth twice daily at mealtime ferrous sulfate 325 mg (65 mg iron) tablet Indications: Iron deficiency anemia, unspecified iron deficiency anemia type Take 1 tablet by mouth twice daily with meals. 90 tablet 1 08/06/2021 12/11/2023 Discontinued Comment on above: Take 1 tablet by [facility] twice daily with meals. Fluticasone Propion-Salmeterol (13 sources) Corticosteroid, beta2-Adrenergic Agonist Start: 07-15-2024 Fluticasone Propion-Salmeterol 250-50 mcg/dose blister with device Active 1 NMA INHALATION TWICE A DAY as needed for shortness of breath or wheezing July 15, 2024 1:00am Start: 07-15-2024 Fluticasone Pr opion-Salmeterol 250-50 mcg/dose blister with device Active 1 NMA INHALATION TWICE A DAY July 15, 2024 1:00am Start: 06-26-2024 take 1 puff(s) by mo ut twice daily fluticasone-salmeterol (ADVAIR DISKUS) 250-50 mcg/dose inhaler Indications: Mild intermittent asthma, uncomplicated (HCC) Inhale 1 Puff as instructed two times a day. Rinse and gargle mouth after use with water. 1 Each 06/26/2024 Active Start: 06-26-2024 take 1 puff(s) by [facility] twice daily fluticasone-salmeterol (ADVAIR DISKUS) 250-50 mcg/dose inhaler Indications: Mild intermittent asthma, uncomplicated Inhale 1 Puff as instructed two times a day. Rinse and gargle mouth after use with water. 1 Each 06/26/2024 Active loratadine 10 mg oral tablet (14 sources) Start: 04-15-2024 take 1 tablet by mouth once daily Loratadine 10 mg tablet Active 10 mg PO DAILY April 15, 2024 12:00am Allergies Start: 08-16-2019 End: 02-19-2020 Loratadine 10 MG capsule Dis continued 10 mg PO NEEDED as needed for Allergies August 16, 2019 1:00am February 19, 2020 1:43pm losartan potassium 25 mg oral tablet (20 sources) Angiotensin 2 Receptor Oscar Start: 08-08-2022 End: 10-23-2024 take 1 tablet by mouth once daily losartan (COZAAR) 25 mg tablet Take 25 mg by mouth once daily. 08/08/2022 Active Comment on above: Take 25 mg by mouth once daily. 24 hr metoprolol succinate 25 mg extended release oral tablet (20 sources) beta-Adrenergic Oscar Start: 02-24-2023 End: 08-01-2023 take 2 tablets by mouth once daily Metoprolol Succinate (Toprol Xl) 25 mg tablet extended release 24 hr Discontinued 12.5 mg PO DAILY 45 July 25, 2023 2:33pm August 01, 2023 1:00pm Start: 07-19-2022 End: 08-16-2024 take 1 tablet by mouth once daily metoprolol succinate ER (TOPROL XL) 25 mg 24 hr tablet Take 25 mg by mouth once daily. 07/19/2022 Active Start: 07-19-2022 End: 09-12-2022 take 2 tablets by mouth once daily Metoprolol Succinate (Toprol Xl) 25 mg tablet extended release 24 hr Discontinued 12.5 mg PO DAILY 90 August 08, 2022 11:11am September 12, 2022 12:42pm Comment on above: TAKE 1/2 (ONE-HALF) OF A TABLET BY MOUTH ONCE DAILY for 60 days, hold for heart rate less than 60 or systolic blood pressure less than 100mmHg Take 25 mg by mouth once daily. molnupiravir 200 mg capsule (1 source) Start: 3 End: 3 take 4 capsules by mouth twice daily molnupiravir 200 mg capsule Indications: Acute COVID-19 , Coronary artery disease involving [place] heart without angina pectoris, unspecified vessel or lesion type Take 4 capsules by mouth two times a day for 5 days. 40 capsule 0 07/05/2023 07/10/2023 Active Comment on above: Take 4 capsules by m outh two times a day for 5 days. hslwgquq-hlr-FM-lycop en-lutein (CENTRUM SILVER MEN) 300-600-300 mcg tab (20 sources) Start: 7 take 300-600 tablets by mouth once daily leuupcce-vqq-TV-lyco pen-lutein (CENTRUM SILVER MEN) 300-600-300 mcg tab Take 1 tablet by mouth once daily. 0 11/07/2016 Active Comment on above: Take 1 tablet by [place] th once daily. Multivitamin preparation (19 sources) Start: 2 take 1 tablet by mouth once daily Multivitamin Active 1 TABLET PO DAILY July 16, 2022 1:00am Start: 07-16-2022 take 1 tablet by [place] th once daily Multivitamin Active 1 TABLET PO DAILY July 16, 2022 12:00am Start: 02-21-2019 End: 10-25-2020 Multivitamin Discontinued 1 EACH PO DAILY February 20, 2019 11:00pm October 25, 2020 12:52pm Start: 02-21-2019 End: 10-25-2020 Multivitamin Discontinued 1 EACH PO DAILY February 21, 2019 12:00am October 25, 2020 1:52pm Multivitamin Tablet (2 sources) Start: 07-16-2022 Multivitamin T ablet Active 1 {tbl} PO DAILY July 16, 2022 1:00am Check with primary doctor nitroglycerin 0.4 mg sublingual tablet (20 sources) Nitrate Vasodilator Start: 06-17-2024 nitroglyce rin sublingual (NITROQUICK) 0.4 mg SL tablet Indications: Coronary artery disease involving [place] heart without angina pectoris, unspecified vessel or lesion type Dissolve 1 tablet under the tongue every 5 minutes as needed for chest pain. 25 tablet 1 06/17/2024 Active Start: 07-19-2022 End: 07-05-2023 Nitroglycerin 0.4 mg tablet, sublingual Discontinued 0.4 mg SL Q5M as needed for Cardiac/Chest Pain 30 0 June 29, 2023 1:53pm July 05, 2023 3:10pm Start: 07-19-2022 End: 06-17-2024 nitroglycerin sublingual (NI TROQUICK) 0.4 mg SL tablet DISSOLVE 1 TABLET UNDER THE TONGUE NEEDED FOR CHEST PAIN- MAY REPEAT EVERY 5 MINUTES IF NEEDED ( MAX 3 DOSES.- IF NO RELIEF CALL 911) 07/19/2022 06/17/2024 Discontinued Comment on above: DISSOLVE 1 TABLET UN BILL THE TONGUE NEEDED FOR CHEST PAIN- MAY REPEAT EVERY 5 MINUTES IF NEEDED ( MAX 3 DOSES.- IF NO RELIEF CALL 911) rosuvastatin calcium 20 mg oral tablet (20 sources) HMG-CoA Reductase Inhibitor Start: 3 End: 3 take 1 tablet by mouth once daily Rosuvastatin 20 mg tablet Discontinued 20 mg PO DAILY January 09, 2023 12:00am July 25, 2023 3:59pm Start: 07-16-2022 take 40 mg by mouth once daily Rosuvastatin Active 40 MG PO DAILY July 16, 2022 12:00am Start: 08-10-2021 End: 03-16-2025 take 1 tablet by mouth once daily at bedtime rosuvastatin (CRESTOR) 20 mg tablet Indications: Mixed hyperlipidemia Take 1 tablet by mouth daily at bedtime. 90 tablet 3 12/16/2024 Active Comment on above: Take 1 tablet by [place] th daily at bedtime. tamsulosin hydrochloride 0.4 mg oral capsule (20 sources) alpha-Adrenergic Oscar Start: 1 End: 5 take 1 capsule by mouth once daily at bedtime tamsulosin (FLOMAX) 0.4 mg Indications: Nocturia Take 1 capsule by mouth daily at bedtime. 90 capsule 3 12/16/2024 Active Start: 08-16-2019 End: 02-19-2020 take 1 capsule by mouth at bedtime Tamsulosin 0.4 MG capsule Discontinued 0.4 mg PO AT BEDTIME August 16, 2019 1:00am February 19, 2020 1:44pm Comment on above: Take 1 capsule by [facility] daily at bedtime. Completed/Discontinued Medications Medication Drug Class(es) Dates Sig (Normalized) Sig (Original) acetaminophen 500 mg oral capsule (2 sources) Start: 04-15-2024 End: 02-20-2025 take 1 capsule by mouth once daily Acetaminophen 500 mg capsule Discontinued 500 mg PO DAILY April 15, 2024 12:00am February 20, 2025 7:50pm acetaminophen 325 mg / dextromethorphan hydrobromide 10 mg / phenylephrine hydrochloride 5 mg oral capsule (12 sources) Uncompetitive X-bwxcry-C-asparta te Receptor Antagonist, Sigma-1 Agonist, alpha-1 Adrenergic Agonist Start: 08-16-2019 End: 10-25-2020 Ffohwqygpxhjn-Cq-Z cetaminophen 1 EACH capsule Discontinued 1 NMA PO NEEDED as needed for Cold Symptons August 16, 2019 1:00am October 25, 2020 1:52pm Start: 08-16-2019 End: 10-25-2020 Fqmtasldexzcf-Jr-Zxvwbonrcej en Discontinued 1 EACH PO NEEDED August 16, 2019 12:00am October 25, 2020 12:52pm acetaminophen 325 mg / HYDROcodone bitartrate 5 mg oral tablet (20 sources) Opioid Agonist Start: 08-23-2019 End: 08-26-2019 Hydrocodone-Acetaminophen 1 EACH tablet Discontinued 1 - 2 NMA PO EVERY 6 HOURS NEEDED as needed for Pain Score 1-10/10 24 3 0 August 23, 2019 August 25, 2019 1:00am August 26, 2019 1:08am Subluxation of tarsometatarsal joint of left foot, subsequent encounter Start: 08-23-2019 End: 08-26-2019 Hydrocodone-Acetaminophen Di scontinued 1 - 2 EACH PO EVERY 6 HOURS NEEDED 24 3 August 23, 2019 August 26, 2019 12:08am Start: 02-22-2019 End: 02-25-2019 Hydrocodone-Acetaminophen 1 EACH tablet Discontinued 1 - 2 {tbl} PO EVERY 6 HOURS NEEDED as needed for Pain 30 3 February 22, 2019 February 24, 2019 12:00am February 25, 2019 12:07am Dislocation of tarsometatarsal joint of left foot, subsequent encounter Dislocation of tarsometatarsal joint of left foot, subsequent encounter Start: 02-22-2019 End: 02-25-2019 take 1 tablet by mouth every six hours as needed Hydrocodone-Acetaminophen Discontinued 1 - 2 TABLET PO EVERY 6 HOURS NEEDED 30 3 February 22, 2019 February 24, 2019 11:07pm benzonatate 100 mg oral capsule (10 sources) Non-narcotic Antitussive Start: 06-10-2024 End: 12-16-2024 take 2 capsules by mouth three times daily as needed for cough benzonatate (TESSALON PERLES) 100 mg capsule Indications: URI with cough and congestion Take 2 capsules by mouth three times a day as needed for cough. 30 capsule 06/10/2024 12/16/2024 Discontinued Start: 07-05-2023 End: 07-20-2023 take 1 capsule by mouth every eight hours as needed for cough benzonatate (TESSALON PERLE) 100 mg capsule Indications: Acute COVID-19 Take 1 capsule by mouth every 8 hours as needed for cough for up to 15 days. 30 capsule 0 07/05/2023 07/20/2023 Active Comment on above: Take 1 capsule by [facility] every 8 hours as needed for cough for up to 15 days. cholecalciferol 0.025 mg oral capsule (10 sources) Vitamin D Start: 08-08-19 End: 09-22-19 24 take 1 capsule by mouth once daily Cholecalciferol (Vitamin D3) 25 mcg (1,000 unit) capsule Discontinued 25 ug PO DAILY August 08, 2022 1:00am September 22, 2023 8:58am clopidogrel 75 mg oral tablet (20 sources) [id number] Platelet Inhibitor Start: 08-27-19 End: 12-17-19 25 Clopidogrel 75 mg tablet Discontinued 0 .ROUTE .COMPLEX 90 3 August 25, 2023 8:56am July 22, 2024 1:06pm TAKE 1 TABLET DAILY Start: 08-08-2022 End: 08-27-2022 Clopidogrel (Plavix) 75 mg t ablet Discontinued 75 mg PO DAILY 34 0 August 19, 2022 10:49am August 27, 2022 9:53am Take 4 pills on day one then once a day Comment on above: Take 75 mg by mouth once daily. cyclobenzaprine hydrochloride 5 mg oral tablet (12 sources) Muscle Relaxant Start: End: take 1 tablet by mouth at bedtime as needed Cyclobenzaprine 5 mg tablet Discontinued 5 mg PO AT BEDTIME as needed for PHYSICIAN August 16, 2019 1:00am October 25, 2020 1:51pm fexofenadine hydrochloride 180 mg oral tablet (12 sources) Histamine-1 Receptor Antagonist Start: End: take 1 tablet by mouth once daily Fexofenadine 180 mg tablet Discontinued 180 mg PO DAILY February 19, 2020 12:00am October 25, 2020 1:52pm fluticasone propionate 0.05 mg/actuat metered dose nasal spray (12 sources) Corticosteroid Start: End: Fluticasone Propionate 1 SPRAY spray,suspension Discontinued 1 NMA NASAL NEEDED as needed for Nasal Congestion August 16, 2019 1:00am October 25, 2020 1:52pm Start: 08-16-2019 End: 10-25-2020 Fluticasone Propionate Disco ntinued 1 SPRAY NASAL NEEDED August 16, 2019 12:00am October 25, 2020 12:52pm lisinopril 5 mg oral tablet (20 sources) Angiotensin Converting Enzyme Inhibitor Start: 07-19-2022 End: 09-19-2022 take 1 tablet by mouth once daily Lisinopril 5 mg Tablet Discontinued 5 mg PO DAILY 30 2 July 19, 2022 1:00am August 08, 2022 11:10am Comment on above: Take 5 mg by mouth o nce daily. magnesium glycinate 100 mg oral tablet (2 sources) Start: 02-19-2025 End: 02-20-2025 take 1 tablet by mouth once daily Magnesium Glycinate 100 mg tablet Discontinued 100 mg PO daily February 19, 2025 12:00am February 20, 2025 7:47pm melatonin 10 mg oral capsule (20 sources) Start: 12-18-2023 End: 02-19-2025 take 1 capsule by mouth at bedtime as needed Melatonin 10 mg capsule Discontinued 10 mg PO BEDTIME as needed December 18, 2023 12:00am February 19, 2025 11:26am take 1 tablet by clinton once daily at bedtime melatonin 10 mg tab Take 10 mg by mouth daily at bedtime. Active Comment on above: Take 10 mg by mouth daily at bedtime. Multivitamin 1 EACH tablet (2 sources) Start: 9 End: 1 Multivitamin 1 EACH tablet Discontinued 1 NMA PO DAILY February 21, 2019 12:00am October 25, 2020 1:52pm naproxen 500 mg oral tablet (20 sources) Nonsteroidal Anti-inflammatory Drug Start: 0 End: 3 take 1 tablet by mouth twice daily as needed for pain Naproxen 500 mg tablet Discontinued 500 mg PO TWICE A DAY as needed for Pain August 16, 2019 12:37pm August 08, 2022 10:30am On Hold: Hold for 1 week. Start: 02-21-2019 End: 08-16-2019 take 1 tablet by mouth once daily Naproxen 500 MG tablet Discontinued 500 mg PO DAILY February 21, 2019 12:00am August 16, 2019 12:41pm Comment on above: Take 1 tablet by clinton twice daily as needed (for pain/inflammation). Take with food. nystatin 100 unt/mg / triamcinolone acetonide 0.001 mg/mg topical ointment (13 sources) Polyene Antifungal, Corticosteroid Start: 08-06-2021 End: 11-10-2021 nystatin-triamcinol one (MYCOLOG) ointment Apply sparingly to perineum twice daily for irritation/infectio n. 30 g 1 08/06/2021 11/10/2021 Start: 08-16-2019 End: 10-25-2020 Nystatin-Triamcinolone cream Discontinued 1 NMA TOPICAL TWICE A DAY as needed for SEE PHYSICIAN August 16, 2019 1:00am October 25, 2020 1:52pm Start: 08-16-2019 End: 10-25-2020 nystatin-triamcinolone Disco ntinued 1 APPLIC TOPICAL TWICE A DAY August 16, 2019 12:00am October 25, 2020 12:52pm Start: 08-16-2019 End: 10-25-2020 nystatin-triamcinolone Disco ntinued 1 APPLIC TOPICAL TWICE A DAY August 16, 2019 1:00am October 25, 2020 1:52pm oxyCODONE hydrochloride 5 mg oral tablet (20 sources) Opioid Agonist Start: 09-19-2023 End: 12-16-2024 take 5-10 mg by mouth every six hours as needed for pain Oxycodone 5 mg tablet Discontinued 5 - 10 mg PO EVERY 6 HOURS as needed for Pain Score 6-10/10 40 7 0 September 28, 2023 October 04, 2023 1:00am October 05, 2023 1:05am Fracture of body of scapula Start: 09-19-2023 End: 12-18-2023 take 1 capsule by mouth every six hours as needed for pain Oxycodone 5 mg capsule Discontinued 5 mg PO EVERY 6 HOURS as needed for pain 12 3 0 September 19, 2023 December 18, 2023 11:06am Closed fracture of right scapula Pantoprazole 40 mg tablet,delayed release (DR/EC) (4 sources) Start: 10-22-2024 End: 02-20-2025 take 1 tablet by mouth once daily Pantoprazole 40 mg tablet,delayed release (DR/EC) Discontinued 40 mg PO daily October 22, 2024 12:00am February 20, 2025 7:47pm Start: 10-22-2024 take 1 tablet by clinton th once daily Pantoprazole 40 mg tablet,delayed release (DR/EC) Active 40 mg PO daily October 22, 2024 12:00am Start: 07-15-2024 End: 07-22-2024 take 1 tablet by mouth once daily Pantoprazole 40 mg tablet,delayed release (DR/EC) Discontinued 40 mg PO daily July 15, 2024 1:00am July 22, 2024 12:29pm pravastatin sodium 80 mg oral tablet (12 sources) HMG-CoA Reductase Inhibitor Start: 07-17-2022 End: 07-19-2022 take 1 tablet by mouth once daily Pravastatin 80 mg Tablet Discontinued 80 mg PO DAILY July 17, 2022 1:00am July 19, 2022 9:39am cholesterol Start: 11-19-2020 End: 08-10-2021 take 1 tablet by mouth once daily at bedtime pravastatin (PRAVACHOL) 80 mg tablet Indications: Mixed hyperlipidemia Take 1 tablet by mouth daily at bedtime. 90 tablet 1 11/19/2020 08/10/2021 Discontinued Start: 07-16-2017 take 40 mg by mouth at bedtime Pravastatin Active 40 MG PO AT BEDTIME July 16, 2017 1:00am predniSONE 10 mg oral tablet (10 sources) Start: 08-08-2022 End: 01-09-2023 Prednisone 10 mg tablet Discontinued 10 mg PO .COMPLEX 30 0 August 08, 2022 1:00am January 09, 2023 1:22pm Take 4 pills for 3 days, 3 pills for 3 days, 2 pills for 3 days, take 1 pill for 3 days sildenafil 100 mg oral tablet (2 sources) Phosphodiesterase 5 Inhibitor Start: 12-18-2023 End: 02-20-2025 Sildenafil (Viagra) 100 mg tablet Discontinued 100 mg PO DAILY as needed for sexual activity 10 December 18, 2023 12:00am February 20, 2025 7:52pm administer 30 minutes to 4 hours before activity 1 ml testosterone cypionate 200 mg/ml injection (20 sources) Androgen Start: 07-16-2022 End: 01-09-2023 inject 200 mg by intramuscular injection every month Testosterone Cypionate 200 mg/mL oil Discontinued 200 mg IM EVERY MONTH July 16, 2022 1:00am January 09, 2023 1:22pm Check with primary doctor Start: 07-16-2022 End: 01-09-2023 inject 200 mg by intramuscular injection every month Testosterone Cypionate Discontinued 200 MG IM EVERY MONTH July 16, 2022 12:00am January 09, 2023 12:22pm Start: 02-15-2022 End: 09-21-2023 testosterone cypionate (DEPO-TESTOSTERONE) 200 mg/mL injection Indications: Hypogonadism in male inject 1ml intramuscularly every 4 weeks 6 mL 1 02/17/2023 03/20/2023 Discontinued Start: 08-12-2019 End: 08-06-2021 testosterone cypionate (DEPO-TESTOSTERONE) 200 mg/mL injection Indications: Hypogonadism in male inject 1ml intramuscularly every 4 weeks 6 mL 08/12/2019 08/06/2021 Discontinued (Course of therapy completed) Start: 07-16-2017 End: 02-19-2020 inject 200 mg by intramuscular injection every month Testosterone Cypionate 200 MG/ML oil Discontinued 200 mg IM EVERY MONTH July 16, 2017 1:00am February 19, 2020 1:45pm Start: 07-16-2017 End: 02-19-2020 inject 200 mg by intramuscular injection every month Testosterone Cypionate Discontinued 200 MG IM EVERY MONTH July 16, 2017 12:00am February 19, 2020 12:45pm Comment on above: inject 1ml intramusc ularly every 4 weeks ticagrelor 90 mg oral tablet (20 sources) Start: 07-19-20 End: 09-19-19 take 1 tablet by mouth twice daily Ticagrelor (Brilinta) 90 mg Tablet Discontinued 90 mg PO TWICE A DAY 60 2 July 19, 2022 1:00am August 19, 2022 10:50am Comment on above: Take 90 mg by mouth twice daily. triamcinolone acetonide 1 mg/ml topical cream (16 sources) Corticosteroid Start: 01-10-20 End: 07-22-20 Triamcinolone Acetonide 0.1 % cream Discontinued 1 NMA TOPICAL DAILY January 09, 2023 12:00am July 22, 2024 12:29pm Start: 07-27-2022 End: 08-26-2022 triamcinolone acetonide (JERICHO ALOG) 0.1 % cream Indications: Eczema, unspecified type Apply 1 application to affected area twice daily. Apply sparingly to area for rash/itching. Use for 2 weeks and then stop 45 g 1 07/27/2022 08/26/2022 Comment on above: Apply 1 application to affected area twice daily. Apply sparingly to area for rash/itching. Use for 2 weeks and then stop vitamin a 2.4 mg oral capsule (12 sources) Vitamin A Start: 02-19-2020 End: 10-25-2020 Vitamin A 8,000 unit capsule Discontinued 8000 U PO DAILY February 19, 2020 12:00am October 25, 2020 1:52pm Problems Active Problems Problem Classification Problem Date Documented Da te Episodic/Chronic Acute myocardial infarction (20 sources) Myocardial infarction; Translations: [Non-ST elevation (NSTEMI) myocardial infarction] Chronic Adjustment disorders (20 sources) Stress and adjustment reaction; Translations: [Adjustment disorder with other symptoms] Onset: 6 03-03-2016 Chronic Allergic reactions (2 sources) Eczema; Translations: [Dermatitis, unspecified] Episodic Anal and rectal conditions (1 source) Lesion of rectum; Translations: [Disease of anus and rectum, unspecified] Episodic Anxiety disorders (20 sources) Generalized anxiety disorder; Translations: [Generalized anxiety disorder] Onset: 6 10-09-2015 Chronic Asthma (1 source) Mild intermittent asthma; Translations: [Mild intermittent asthma, uncomplicated] 06-26-2024 Chronic Cardiac dysrhythmias (4 sources) Ventricular tachycardia; Translations: [Ventricular tachycardia] 02-19-2025 Chronic Chronic obstructive pulmonary disease and bronchiectasis (1 source) Chronic obstructive pulmonary disease, unspecified; Translations: [Chronic obstructive pulmonary disease, unspecified] Onset: 4 Chronic Coronary atherosclerosis and other heart disease (20 sources) Ischemic chest pain; Translations: [Chronic ischemic heart disease, unspecified] Onset: 3 Chronic Comment on above: JERRELL to LAD 07/21 Coronary atherosclerosis and other heart disease (20 sources) Stented coronary artery; Translations: [Presence of coronary angioplasty implant and graft] Onset: 2 07-18-2022 Episodic Comment on above: JERRELL to LAD Deficiency and other anemia (1 source) Iron deficiency anemia; Translations: [Iron deficiency anemia, unspecified] Episodic Diabetes mellitus without complication (7 sources) Hyperglycemia; Translations: [Hyperglycemia, unspecified] Episodic Disorders of lipid metabolism (20 sources) Hyperlipidemia; Translations: [Hyperlipidemia, unspecified] Onset: 6 08-26-2015 Chronic Esophageal disorders (20 sources) Gastroesophageal reflux disease; Translations: [Gastro-esophageal reflux disease without esophagitis] Onset: 6 Resolved: 4 06-01-2006 Chronic Fever of unknown origin (1 source) Fever; Translations: [Fever, unspecified] 02-20-2025 Episodic Gastritis and duodenitis (20 sources) Acute gastritis; Translations: [Acute gastritis without bleeding] 08-30-2005 Episodic Malaise and fatigue (6 sources) Fatigue; Translations: [Other fatigue] 02-24-2023 Episodic Nonspecific chest pain (18 sources) Chest pain; Translations: [Chest pain, unspecified] Onset: 5 Episodic Occlusion or stenosis of precerebral arteries (20 sources) Bilateral stenosis of carotid arteries; Translations: [Occlusion and stenosis of bilateral carotid arteries] Onset: 6 10-01-2022 Chronic Open wounds of extremities (5 sources) Laceration of finger; Translations: [Laceration without foreign body of unspecified finger without damage to nail, initial encounter] 12-24-2022 Episodic Osteoarthritis (1 source) Osteoarthritis of knee; Translations: [Osteoarthritis of knee, unspecified] 03-23-2023 Chronic Other acquired deformities (2 sources) Compression fracture of vertebral column; Translations: [Deforming dorsopathy, unspecified] 09-22-2023 Episodic Other circulatory disease (11 sources) Elevated blood pressure; Translations: [Elevated blood-pressure reading, without diagnosis of hypertension] 07-27-2022 Episodic Other circulatory disease (5 sources) Elevated blood-pressure reading, without diagnosis of hypertension; Translations: [Elevated blood pressure reading without diagnosis of hypertension] Episodic Other connective tissue disease (20 sources) Enthesopathy of hip region; Translations: [Other specified enthesopathies of unspecified lower limb, excluding foot] 06-01-2006 Episodic Other connective tissue disease (2 sources) Bursitis of shoulder; Translations: [Bursitis of unspecified shoulder] 11-06-2023 Episodic Other ear and sense organ disorders (1 source) Otitis; Translations: [Cellulitis of right external ear] 02-20-2025 Episodic Other ear and sense organ disorders (1 source) Cellulitis of right external ear; Translations: [Cellulitis of right external ear] 02-20-2025 Episodic Other ear and sense organ disorders (1 source) Acute otitis externa; Translations: [Diffuse otitis externa, right ear] 02-27-2025 Episodic Other ear and sense organ disorders (1 source) Diffuse otitis externa, right ear; Translations: [Acute diffuse otitis externa of right ear] Onset: 5 Episodic Other ear and sense organ disorders (1 source) Cellulitis of right external ear; Translations: [Cellulitis of right external ear] Onset: 5 Episodic Other ear and sense organ disorders (1 source) Unspecified disorder of ear, unspecified ear; Translations: [Unspecified disorder of ear, unspecified ear] Onset: 5 Episodic Other endocrine disorders (20 sources) Male hypogonadism; Translations: [Testicular hypofunction] 05-09-2017 Chronic Other fractures (3 sources) Fracture of seventh thoracic vertebra; Translations: [Wedge compression fracture of T7-T8 vertebra, initial encounter for closed fracture] 09-19-2023 Episodic Other fractures (3 sources) Fracture of third thoracic vertebra; Translations: [Wedge compression fracture of third thoracic vertebra, initial encounter for closed fracture] 09-19-2023 Episodic Other fractures (2 sources) Compression fracture of thoracic spine; Translations: [Wedge compression fracture of unspecified thoracic vertebra, initial encounter for closed fracture] 10-20-2023 Episodic Other gastrointestinal disorders (2 sources) Occult blood in stools; Translations: [Other fecal abnormalities] Episodic Other hematologic conditions (1 source) Erythrocytosis; Translations: [Secondary polycythemia] 12-18-2024 Episodic Other hematologic conditions (1 source) Secondary polycythemia; Translations: [Polycythemia] Onset: Episodic Other injuries and conditions due to external causes (1 source) Foreign body in right ear; Translations: [Foreign body in right ear, initial encounter] Episodic Other injuries and conditions due to external causes (1 source) Closed injury of head; Translations: [Unspecified injury of head, subsequent encounter] 09-22-2023 Episodic Other lower respiratory disease (1 source) Dyspnea on exertion; Translations: [Other forms of dyspnea] Episodic Other lower respiratory disease (2 sources) Chronic cough; Translations: [Chronic cough] Episodic Other lower respiratory disease (20 sources) Cough; Translations: [Cough, unspecified type] Episodic Other lower respiratory disease (9 sources) Dyspnea; Translations: [Shortness of breath] 09-15-2022 Episodic Other lower respiratory disease (2 sources) Cough; Translations: [Acute cough] 04-30-2024 Episodic Other nervous system disorders (1 source) Other chronic pain; Translations: [Chronic pain of left knee] Onset: Chronic Other non-traumatic joint disorders (4 sources) Pain of left wrist; Translations: [Pain in left wrist] Episodic Other nutritional; endocrine; and metabolic disorders (11 sources) Obese class I; Translations: [Obesity, Class I, BMI 30-34.9] Onset: 5 12-16-2024 Chronic Other nutritional; endocrine; and metabolic disorders (1 source) History of iron deficiency; Translations: [Personal history of other endocrine, nutritional and metabolic disease] 12-11-2023 Episodic Other nutritional; endocrine; and metabolic disorders (2 sources) Overweight; Translations: [Overweight] 04-15-2024 Episodic Other skin disorders (1 source) Hyperhidrosis; Translations: [Generalized hyperhidrosis] 03-20-2023 Episodic Other upper respiratory disease (2 sources) Nasal congestion; Translations: [Nasal congestion] 06-03-2024 Episodic Pneumonia (except that caused by tuberculosis or sexually transmitted disease) (1 source) Community acquired pneumonia; Translations: [Pneumonia, unspecified organism] 06-10-2024 Episodic Residual codes; unclassified (20 sources) Obstructive sleep apnea syndrome; Translations: [Obstructive sleep apnea (adult) (pediatric)] Onset: 3 08-15-2022 Chronic Comment on above: AHI 59 events per ho ur Residual codes; unclassified (17 sources) Obstructive sleep apnea (adult) (pediatric); Translations: [Obstructive sleep apnea (adult)(pediatric)] Onset: 3 08-08-2022 Chronic Screening and history of mental health and substance abuse codes (1 source) Encounter for screening for depression; Translations: [Screening for depression] Onset: 5 Episodic Skin and subcutaneous tissue infections (2 sources) Cellulitis of skin; Translations: [Cellulitis, unspecified] Onset: 5 02-20-2025 Episodic Spondylosis; intervertebral disc disorders; other back problems (1 source) Degeneration of lumbar intervertebral disc; Translations: [Other intervertebral disc degeneration, lumbar region] 12-11-2023 Chronic Superficial injury; contusion (12 sources) Contusion of foot; Translations: [Contusion of left foot, initial encounter] 02-05-2019 Episodic Unclassified (1 source) Impression: 1. Severe obstructive sleep apnea, with AHI well-controlled on AutoSet at 9 cm with an AHI of 3.9. His sleep apnea is adequately resolved on CPAP, but he may have a superimposed sleep problem such as restless legs, leak, or disruption due to chronic pain. Mask leak and humidity may also play a role in his discomfort as well as position. He has demonstrated excellent compliance, and was congratulated for doing so this early in his treatment course. 2. Residual sleepiness, likely due to a combination of mask leaking, limb restlessness and insufficient humidity. Plan: 1. Patient will check with Joshua regarding mask leak, possibly will try a different mask 2. Patient to do a trial of sleeping in a recliner, which is more comfortable for him. If he continues to have excessive sleepiness and witnessed severe limb restlessness that disrupts his sleep, he will need to have a CPAP Polysomnography polysomnography at his current sleep settings, check for restless leg syndrome, which would require different treatment with pramipexole or similar medication. 3. He will try a sleep aid from his primary physician 4. He was encouraged to use the humidifier on a trial basis to see if it improves his leak or mask comfort 5. Follow-up in 2 months. 6. He was told to call in 2 weeks of trying to sleep in a recliner with a humidifier after more time to become acclimated to his CPAP. If he seems to be excessively sleepy in the recliner did not help his limb restlessness, we will order a CPAP polysomnography on 9 cm to check in for restless legs as a cause of his residual sleepiness on CPAP. 7. He may need either pramipexole and/or sleep aid and/or or armodafinil for his residual sleepiness, time will tell whether any of these are indicated. 01-09-2023 Unclassified (1 source) Obesity, Class I, BMI 30-34.9; Translations: [Obesity, Class I, BMI 30-34.9] Onset: 5 Unclassified (1 source) Cough, unspecified type; Translations: [Cough, unspecified type] Onset: 4 Unclassified (1 source) Acute cough; Translations: [Acute cough] Onset: 4 Unclassified (1 source) Ventricular tachycardia, unspecified; Translations: [Ventricular tachycardia, unspecified] Onset: 5 Viral infection (1 source) COVID-19; Translations: [Other specified viral infection] 07-05-2023 Episodic Past or Other Problems Problem Classification Problem Date Documented Da te Episodic/Chronic Acquired foot deformities (20 sources) Left foot drop; Translations: [Foot drop, left foot] Onset: 03-21-2018 03-21-2018 Episodic Administrative/social admission (20 sources) Social problem; Translations: [Problem related to unspecified psychosocial circumstances] Onset: 10-09-2015 Resolved: 09-19-2022 10-09-2015 Episodic Cardiac dysrhythmias (2 sources) Bradycardia; Translations: [Bradycardia, unspecified] Onset: 12-16-2024 12-16-2024 Episodic Conditions associated with dizziness or vertigo (20 sources) Dizziness; Translations: [Dizziness and giddiness] Onset: 10-19-2015 Resolved: 09-19-2022 10-19-2015 Episodic Fracture of upper limb (20 sources) Closed fracture of head of radius; Translations: [Displaced fracture of head of unspecified radius, initial encounter for closed fracture] Onset: 09-22-2003 11-24-2003 Episodic Genitourinary symptoms and ill-defined conditions (7 sources) Nocturia; Translations: [Nocturia] Onset: 12-16-2024 Episodic Hemorrhoids (20 sources) Internal hemorrhoids; Translations: [Other hemorrhoids] Onset: 11-05-2010 11-05-2010 Episodic Immunizations and screening for infectious disease (1 source) Encounter for immunization; Translations: [Encounter for immunization] Onset: 12-16-2024 Episodic Other and unspecified benign neoplasm (20 sources) Benign neoplasm of rectum and anal canal; Translations: [Benign neoplasm of rectum] Onset: 11-05-2010 11-05-2010 Episodic Other fractures (1 source) Wedge compression fracture of T7-T8 vertebra, subsequent encounter for fracture with routine healing; Translations: [Wedge compression fracture of T7-T8 vertebra, subsequent encounter for fracture with routine healing] Onset: 05-06-2024 Episodic Other lower respiratory disease (6 sources) Shortness of breath; Translations: [Shortness of breath] Onset: 08-22-2024 09-15-2022 Episodic Other non-traumatic joint disorders (5 sources) Pain in left knee; Translations: [Pain in joint, lower leg] Onset: 06-17-2024 03-20-2023 Episodic Other screening for suspected conditions (not mental disorders or infectious disease) (20 sources) Patient encounter status; Translations: [Encounter for screening for malignant neoplasm of colon] Onset: 11-05-2010 Resolved: 09-19-2022 12-10-2020 Episodic Other upper respiratory infections (8 sources) Acute upper respiratory infection; Translations: [Acute upper respiratory infection, unspecified] Onset: 04-30-2024 Episodic Spondylosis; intervertebral disc disorders; other back problems (20 sources) Neck pain; Translations: [Cervicalgia] Onset: 03-21-2018 Resolved: 09-19-2022 03-21-2018 Episodic Results Test Name Value Interpretation Reference Range Facility [facility] KETAN COTTON ([id number]) 1955 M Date Time Provider Department 03/13/25 [facility] During your visit today, we recorded the following information about you: Josefina Medel 03/13/2025 9:44 AM Signed Patient only needs a short term of the following Rx to go to [facility] until he receives the mail order Rx. Patient has been identified by name and date of : Yes Patient phones for refill(s): Requested Prescriptions Pending Prescriptions Disp Refills losartan (COZAAR) 25 mg tablet 90 tablet Sig: Take 1 tablet by mouth once daily. Date of last office visit in primary care: 02/27/2025 Date of next office visit in primary care: 03/13/2025 He asked for the office to call him when this is sent to [facility]. TY [phone] Please advise. Thank you. Josefina Medel. Paris Jamil LPN 03/13/2025 3:[address] Wilcox has never prescribed the losartan. Has he been getting this from cardiology? If so he will need to contact cardiology to request a short supply. Attempted to contact patient with no answer and unable to leave message due to mailbox is full. Pato Brewster LPN 03/18/2025 11:57 AM Signed Patient did not return call. Allergies As of Date: 03/13/2025 Noted Allergy Reaction BAYCOL 07/05/2023 5 - Intolerance Comments: Leg cramps ERYTHROMYCIN 08/30/2005 5 - Intolerance Comments: GI upset LIPITOR (ATORVASTATIN CALCIUM) 08/30/2005 5 - Intolerance Comments: leg pain,weakness NIASPAN (NIACIN) 10/04/2010 4 - Hives PENICILLINS 08/30/2005 4 - Hives Comments: hives SEASONAL ALLERGIES 07/05/2023 14 - Other: See Comments Comments: Cockroaches, trees, weeds Date Reviewed: 02/27/2025 Reviewed by: Kristina Eduardo MA - Fully Assessed Reason for Visit: Refill Request [94] Medication Problem [65] Cmt: Needs only a short term of Losartan sent to local pharmacy Prescriptions as of 03/18/2025 - famotidine (PEPCID) 20 mg tablet Take 1 tablet by mouth daily at bedtime. - tamsulosin (FLOMAX) 0.4 mg Take 1 capsule by mouth daily at bedtime. - esomeprazole (NEXIUM) 40 mg capsule Take 1 capsule by mouth once daily. - rosuvastatin (CRESTOR) 20 mg tablet Take 1 tablet by mouth daily at bedtime. - fluticasone-salmeterol (ADVAIR DISKUS) 250-50 mcg/dose inhaler Inhale 1 Puff as instructed two times a day. Rinse and gargle mouth after use with water. - nitroglycerin sublingual (NITROQUICK) 0.4 mg SL tablet Dissolve 1 tablet under the tongue every 5 minutes as needed for chest pain. - melatonin 10 mg tab Take 10 mg by mouth daily at bedtime. - losartan (COZAAR) 25 mg tablet Take 25 mg by mouth once daily. - aspirin, enteric coated (ASPIRIN, ENTERIC COATED) 81 mg EC tablet Take 81 mg by mouth daily with breakfast. - metoprolol succinate ER (TOPROL XL) 25 mg 24 hr tablet Take 25 mg by mouth once daily. - diclofenac (VOLTAREN) 1 % topical gel Apply 2 g to affected area twice daily as needed. - COMPOUNDED PRESCRIPTION [facility] Push Brace to be used daily as directed. - Compression Knee Highs KNEE HIGH COMPRESSION STOCKINGS 20-30 MM. DX: EDEMA, varicose veins - zzncluop-wjx-DL-lycopen-leonides tein (CENTRUM SILVER MEN) 300-600-300 mcg tab Take 1 tablet by mouth once daily. Problem List As Of Date 03/13/2025 Noted Resolved FX RADIUS HEAD-CLOSED [S52.123A] 09/22/2003 ACUTE GASTRITIS W/O HEMORRHAGE [K29.00] ENTHESOPATHY OF HIP [M76.899] ESOPHAGEAL REFLUX [K21.9] Hyperlipidemia [E78.5] Screening for colon cancer [Z12.11] 11/05/2010 09/19/2022 Benign neoplasm of rectum and anal canal [D12.8*11/05/2010 Internal hemorrhoids without mention of complic*11/05/2010 Generalized anxiety disorder [F41.1] 10/09/2015 Other social stressor [Z65.9] 10/09/2015 09/19/2022 Dizziness [R42] 10/19/2015 09/19/2022 Bilateral carotid artery stenosis [I65.23] 10/28/2015 Stress and adjustment reaction [F43.29] 03/03/2016 Hypogonadism in male [E29.1] Left foot drop [M21.372] 03/21/2018 Neck pain [M54.2] 03/21/2018 09/19/2022 Gastroesophageal reflux disease with esophagiti*12/10/2020 06/17/2024 NOE (obstructive sleep apnea) [G47.33] 09/19/2022 Coronary artery disease involving [place] heart *03/20/2023 Obesity, Class I, BMI 30-34.9 [E66.811] 12/16/2024 Encounter Status:Closed by PATO BREWSTER on 03/18/25 [facility] 02-27-2025 CN Office Visit (FAMPWS ) -- KETAN COTTON ([id number]) 1955 M Date Time Provider Department 02/27/25 2:20 PM TARA CHARLESPWS During your visit today, we recorded the following information about you: Temperature Pulse Blood pressure Weight 97.8 degrees 65/minute 116/68 92.5 kg Tara Charles APRN.CHIEF OPERATOR HYDROFORMER 02/27/2025 2:32 PM Signed This is a 69 year old male who presents today with: Patient presents with: ER Mahamed/U: [facility] 02/20/25 Cellulitis of right earlobe HISTORY OF PRESENT ILLNESS: Ketan Cotton is a 69 year old male. Patient presents with: ER F/U: [facility] 02/20/25 Cellulitis of right earlobe Patient was seen at [facility] on February 20, 2025 for ear problem. Painful swollen right ear with lymph node pain and swelling. Has been ongoing for days. Palpation of lymph node. Increased redness. Fever of 100.2. History of diabetes. He was prescribed cephalexin. Took a dose at 4 and a dose prior to arrival. Denies any other symptoms. Patient does have hives to amoxicillin when he was younger. Has taken cephalexin and other cephalosporins without reaction. He also has a history of hyperlipidemia, non-ST elevation myocardial infarction, compression fracture of the thoracic spine and ventricular tachycardia. Patient has cellulitis of his ear. No evidence to suggest parotid gland infection. No evidence to suggest external otitis. WBC 8.0, hemoglobin 14.7, hematocrit 43.3, platelet count 179 Lymphocytes 16.8, monocytes 15.5 Absolute differential is okay. Sodium 140, potassium 4.3, BUN 18, creatinine 1.0, glucose 135 GFR 80.23, lactic acid 1.4, calcium 9.2 Patient was not prescribed any change in therapy. Was instructed to take his antibiotic until prescription complete. Timmy Cotton is a 69-year-old male presenting for follow-up of a recent ear infection. Ear Infection: - Recent ear infection with significant pain and swelling. - Denies current odynophagia, nausea, emesis, or diarrhea post-antibiotic treatment. - Reports one night of fever and chills. - Denies dyspnea, cough, or wheezing. - Suspects a connection between ear infection and chronic skin conditions (psoriasis and eczema). PAST MEDICAL HISTORY: PAST MEDICAL HISTORY Diagnosis Date Arthritis Benign [...] SURGERY HX FRACTURE SURGERY HEMORRHOID SURGERY HX [id number] Guttman HERNIA REPAIR HX PAST SURGICAL HISTORY [...] BIOPSY HX TONSILLECTOMY HX TONSILLECTOMY PRIMARY/SECONDARY Tonsillectomy ALLERGIES Baycol, Erythromycin, Lipitor [Atorvastatin Calcium], Niaspan [Niacin], Penicillins, and Seasonal Allergies MEDICATIONS Current Outpatient Medications Medication Sig tamsulosin (FLOMAX) 0.4 mg Take 1 capsule by mouth daily at bedtime. esomeprazole (NEXIUM) 40 mg capsule Take 1 capsule by mouth once daily. rosuvastatin (CRESTOR) 20 mg tablet Take 1 tablet by mouth daily at bedtime. fluticasone-salmeterol (ADVAIR DISKUS) 250-50 mcg/dose inhaler Inhale 1 Puff as instructed two times a day. Rinse and gargle mouth after use with water. nitroglycerin sublingual (NITROQUICK) 0.4 mg SL tablet Dissolve 1 tablet under the tongue every 5 minutes as needed for chest pain. melatonin 10 mg tab Take 10 mg by mouth daily at bedtime. losartan (COZAAR) 25 mg tablet Take 25 mg by mouth once daily. aspirin, enteric coated (ASPIRIN, ENTERIC COATED) 81 mg EC tablet Take 81 mg by mouth daily with breakfast. metoprolol succinate ER (TOPROL XL) 25 mg 24 hr tablet Take 25 mg by mouth onc (more content not included)... Normal [facility] Absolute lymphocyte countOrd ered By: Juventino Naranjo on 02-20-2025 Lymphocytes Auto (Unsp spec) [#/Vol] 1.35 10*3/uL 0.83-4.51 [facility] Absolute neutrophil countOrd ered By: Juventino Naranjo on 02-20-2025 Neutrophils (Bld) [#/Vol] 5.3 10*3/uL 2.0-7.7 [facility] Anion gap in Serum or Plasma Ordered By: Juventino Harpero on 02-20-2025 Anion gap [Moles/Vol] 11 mmol/L 5-15 [facility] Automated blood erythrocyte countOrdered By: Juventinocarlo Harpero on 02-20-2025 RBC (Bld) [#/Vol] 4.73 10*6/uL Normal 4.6-6.2 [facility] Comment on above: Performed By: #### L 500.2500, L100.0100, L503.6005 #### [facility] [address] [place], [place], [id number] Automated blood hematocrit ( percentage)Ordered By: Juventinocarlo Harpero on 02-20-2025 Hematocrit (Bld) [Volume fraction] 43.3 % Normal 40-54 [facility] Comment on above: Performed By: #### L 500.2500, L100.0100, L503.6005 #### [facility] [address] [place], [place], [address] Automated lymphocyte count a s percentage of total leukocytesOrdered By: Juventino Harpero on 02-20-2025 Lymphocytes/100 WBC Auto (Unsp spec) 16.8 % Low 19-41 [facility] BUN/creatinine ratioOrdered By: Juventinocarlo Harpero on 02-20-2025 Urea nitrogen/Creatinine [Mass ratio] 18.4 mg/mg 10- [facility] Basic Metabolic Profile (BMP )on 02-20-2025 BUN/CRE 18.4 RATIO Normal - [facility] Comment on above: Performed By: #### L 500.2500, L100.0100, L503.6005 #### [facility] [address] [place], [address] ECRCL 80.23 ml/min Normal 50-250 [facility] Comment on above: Performed By: #### L 500.2500, L100.0100, L503.6005 #### [facility] [address] [place], [address] GAP 11 Normal 5-15 [facility] Comment on above: Performed By: #### L 500.2500, L100.0100, L503.6005 #### [facility] [address] [place], [address] Potassium [Moles/Vol] 4.3 mmol/L Normal 3.3-5.1 [facility] Comment on above: Performed By: #### L 500.2500, L100.0100, L503.6005 #### [facility] [address] [place], [address] Basophil percentageOrdered B y: Juventino Naranjo on 02-20-2025 Basophils/100 WBC (Bld) 0.4 % Normal 0-1 [facility] Comment on above: Performed By: #### L 500.2500, L100.0100, L503.6005 #### [facility] [address] [place], [address] CBC W/Diff, Automatedon 07-2 Absolute Lymph 1.35 X10 3/uL Normal 0.83-4.51 [facility] Comment on above: Performed By: #### L 500.2500, L100.0100, L503.6005 #### [facility] [address] [place], [address] Absolute Neut 5.3 X10 3/uL Normal 2.0-7.7 [facility] Comment on above: Performed By: #### L 500.2500, L100.0100, L503.6005 #### [facility] [address] [place], [address] IG% 0.100 Normal 0.0-0.9 [facility] Comment on above: Result Comment: IG% - Immature Granulocytes (promyelocytes, myelocytes and metamyelocytes) > 1% indicates that a LEFT SHIFT is Present. Performed By: #### L 500.2500, L100.0100, L503.6005 #### [facility] [address] [place], [address] Lymphocytes/100 WBC (Bld) 16.8 % Low 19-41 [facility] Comment on above: Performed By: #### L 500.2500, L100.0100, L503.6005 #### [facility] [address] [place], [address] Nucleated RBC (Bld) [#/Vol] 0 10*3/uL Normal 0-5 [facility] Comment on above: Performed By: #### L 500.2500, L100.0100, L503.6005 #### [facility] [address] [place], [address] RDW SD 42.5 fl Normal 35.1-43.9 [facility] Comment on above: Performed By: #### L 500.2500, L100.0100, L503.6005 #### [facility] [address] [place], [address] CNOVon 02-20-2025 CNOV Office Visit (WOUCA) -- KETAN COTTON ([id number]) 1955 M Date Time Provider Department 02/20/25 5:00 PM JOSE PABLO During your visit today, we recorded the following information about you: Temperature Pulse Respiration Blood pressure 99.2 degrees 67/minute 18/minute 120/78 Weight 93.9 kg Jose Pablo APRN.CNP 02/20/2025 4:35 PM Signed [facility] Griselda Cotton is a 69 year old male. Patient presents with: Ear Problem: R ear lobe swollen x4 days, warm to touch, low fever HPI Right Ear Pain and Swelling: - Onset 3-4 days ago. - Associated with swelling and pain in the lymph nodes under the ear. - Earlobe is swollen and painful; denies previous swelling. - Denies muffled hearing due to ear pain; has baseline hearing loss. - Reports a history of pruritus behind the ear, leading to excoriation and serous drainage. - Applied a topical cream to the area 4 days ago; suspects possible contamination. - Denies current open sores in the crease behind the ear. Review of Systems Ears/Nose/Mouth/Throat: (+) right ear pain, (+) right earlobe pain, (+) hearing loss Hematologic/Lymphatic: (+) swollen painful lymph nodes under right ear Objective BP 120/78 Pulse 67 Temp 37.3 ?C (99.2 ?F) Resp 18 Wt 93.9 kg (207 lb 0.2 oz) SpO2 97% BMI 30.57 kg/m? Physical Exam General: No acute distress. HEENT: Throat normal; left ear normal; right ear with erythema and slight swelling, tenderness of right earlobe; lymphadenopathy under right ear. CV: Heart sounds normal. Resp: Breath sounds normal. { # Cellulitis of skin (L03.90) # Cellulitis of right external ear (H60.11) - Acute onset of right external ear pain, swelling, and erythema for 3-4 days; exam notable for tenderness, swelling, and erythema of right earlobe. - Start Keflex QID for 5 days. - Advised patient to seek immediate care in the ER or follow up with primary care if symptoms worsen or do not improve. - Patient agreed with the care plan. and Recording using ambient [employer] software for draft documentation of the visit was discussed with the patient/authorized circulation representative; all questions welcomed and answered. Patient/authorized circulation representative agreed to proceed MDM Procedures Allergies As of Date: 02/20/2025 Noted Allergy Reaction BAYCOL 07/05/2023 5 - Intolerance Comments: Leg cramps ERYTHROMYCIN 08/30/2005 5 - Intolerance Comments: GI upset LIPITOR (ATORVASTATIN CALCIUM) 08/30/2005 5 - Intolerance Comments: leg pain,weakness NIASPAN (NIACIN) 10/04/2010 4 - Hives PENICILLINS 08/30/2005 4 - Hives Comments: hives SEASONAL ALLERGIES 07/05/2023 14 - Other: See Comments Comments: Cockroaches, trees, weeds Date Reviewed: 02/20/2025 Reviewed by: Magdalene Simmons MA - Fully Assessed Reason for Visit: Ear Problem [38] Cmt: R ear lobe swollen x4 days, warm to touch, low fever Primary Visit Diagnosis:Cellulitis of skin [L03.90] Other Visit Diagnosis:Cellulitis of right external ear [H60.11] Order(s):cephALEXin (KEFLEX) 500 mg capsuleTake 1 capsule by mouth four times daily for 5 days.Disp: 20 capsuleRfl: 0 Prescriptions as of 02/20/2025 - cephALEXin (KEFLEX) 500 mg capsule Take 1 capsule by mouth four times daily for 5 days. - tamsulosin (FLOMAX) 0.4 mg Take 1 capsule by mouth daily at bedtime. - esomeprazole (NEXIUM) 40 mg capsule Take 1 capsule by mouth once daily. - rosuvastatin (CRESTOR) 20 mg tablet Take 1 tablet by mouth daily at bedtime. - fluticasone-salmeterol (ADVAIR DISKUS) 250-50 mcg/dose inhaler Inhale 1 Puff as instructed two times a day. Rinse and gargle mouth after use with water. - nitroglycerin sublingual (NITROQUICK) 0.4 mg SL tablet Dissolve 1 tablet under the tongue every 5 minutes as needed for chest pain. - melatonin 10 mg tab Take 10 mg by mouth daily at bedtime. - losartan (COZAAR) 25 mg tablet Take 25 mg by mouth once daily. - aspirin, enteric coated (ASPIRIN, ENTERIC COATED) 81 mg EC tablet Take 81 mg by mouth daily with breakfast. - metoprolol succinate ER (TOPROL XL) 25 mg 24 hr tablet Take 25 mg by mouth once daily. - diclofenac (VOLTAREN) 1 % topical gel Apply 2 g to affected area twice daily as needed. - COMPOUNDED PRESCRIPTION [facility] Push Brace to be used daily as directed. - Compression Knee Highs KNEE HIGH COMPRESSION STOCKINGS 20-30 MM. DX: EDEMA, varicose veins - rmixamfd-ltw-LP-lycopen-leonides tein (CENTRUM SILVER MEN) 300-600-300 mcg tab Take 1 tablet by mouth once daily. Problem List As Of Date 02/20/2025 Noted Resolved FX RADIUS HEAD-CLOSED [S52.123A] 09/22/2003 ACUTE GASTRITIS W/O HEMORRHAGE [K29.00] ENTHESOPATHY OF HIP [M76.899] ESOPHAGEAL REFLUX [K21.9] Hyperlipidemia [E78.5] Screening for colon cancer [Z12.11] 11/05/2010 09/19/2022 Benign neoplasm of rectum and anal canal [D12.8*11/05/2010 Internal hemor (more content not included)... Normal [facility] Carbon dioxide, total [Moles /volume] in Central venous bloodOrdered By: Juventino Naranjo on 02-20-2025 CO2 [Moles/Vol] 25.4 mmol/L Normal 21.0-32.0 [facility] Comment on above: Performed By: #### L 500.2500, L100.0100, L503.6005 #### [facility] [address] [place], [address] Chloride assayOrdered By: Seymour Naranjo on 02-20-2025 Chloride [Moles/Vol] 104 mmol/L Normal 98-108 [facility] Comment on above: Performed By: #### L 500.2500, L100.0100, L503.6005 #### [facility] [address] [place], [address] Emergency Department Summary on 02-20-2025 Emergency Department Summary [facility] Medical Records Department [address] [place] [address] Emergency Department Summary 02/20/25 MR#: [id number] Acct: [id number] Name: KETAN COTTON Rep #: [id number] : 1955 69 From: Juventino Naranjo MD PCP: Dr. Blake Wilcox MD Status:REG ER Location: ED HPI History of Present Illness Chief Complaint: Ear Problem Detail of Chief Complaint: Painful swollen right ear with lymph node pain and swelling Informant: patient and spouse/S.O. Onset/Context/Timing Onset: Days Context: Sudden Onset Timing: Continuous Quality: Swelling of the right ear and pain Location: Right Current Severity: Mild Maximum Severity: Moderate Worsened by: Palpation of lymph nodes Relieved by: Nothing Associated Symptoms Associated Symptoms: Increased swelling redness and temperature 100.2 Narrative Narrative: Patient is a 69-year-old male. He does not have history of diabetes and is on no immunosuppressive meds. He was seen this afternoon at urgent care. Diagnosed with infection. He was prescribed cephalexin 500 mg. He took a dose at 4:00 and a dose prior to arrival. He denies any other symptoms. Patient had hives to amoxicillin when he was younger. He has taken cephalexin and other cephalosporins without reaction. He does have history of hyperlipidemia, non-ST elevation NM, compression fracture thoracic spine and V. tach. Prior similar symptoms: Yes Recent Illness/Hospital[facility]: [facility] Medical History Chest pain Hyperlipidemia Atherosclerotic heart disease of [place] coronary artery without angina pectoris Non-ST elevation NM (NSTEMI) Hemorrhoids Enthesopathy of hip region GERD (gastroesophageal reflux disease) Generalized anxiety disorder History of vitamin D deficiency Home Medications ???Medication ???Instructions ???Recorded ???Last Taken ???Type multivitamin 1 tab PO DAILY Check with primary 07/16/22 Unknown History doctor tamsulosin 0.4 mg capsule 0.4 mg PO DAILY Check with primary 07/16/22 Unknown History doctor aspirin 81 mg tablet,delayed 81 mg PO BREAKFAST #30 tabs Unknown Rx release diclofenac sodium 1 % topical gel 2 g topical ONCE PRN skin 3 Unknown History irritation albuterol sulfate 90 mcg/actuation 2 puff inhalation Q6H PRN Unknown History aerosol inhaler shortness of breath or wheezing nitroglycerin 0.4 mg sublingual 0.4 mg sublingual Q5M PRN 07/05/23 Unknown Rx tablet Cardiac/Chest Pain #25 tabs loratadine 10 mg tablet 10 mg PO DAILY Allergies 04/15/24 Unknown History fluticasone 250 mcg-salmeterol 50 1 ea inhalation BID PRN shortness 07/15/24 Unknown History mcg/dose blistr powdr for of breath or wheezing inhalation metoprolol succinate 25 mg 25 mg PO DAILY #90 tabs 08/16/24 U nknown Rx tablet,extended release 24 hr (Toprol XL) losartan 25 mg tablet 25 mg PO DAILY #90 tabs 10/23/24 U nknown Rx rosuvastatin 20 mg tablet See Rx Instructions .Route 5 Unknown Rx .COMPLEX #90 tabs ferrous sulfate 325 mg (65 mg 325 mg PO QDAY 02/19/25 Unknown Hi story iron) tablet (Feosol) esomeprazole magnesium 40 mg 40 mg PO Q24H 02/20/25 Unknown His tory capsule,delayed release Allergy/AdvReac Type Severity Reaction Status Date / Time erythromycin base Allergy Intermediate Nausea/Vom/ Verified 02/20/25 19:40 Diarrhea niacin (From Niaspan Allergy Intermediate Hives Verified 02/20/25 19:40 Extended-Release) Penicillins Allergy Unknown Verified 02/20/25 19:40 atorvastatin AdvReac Intermediate myalgias Verified 02/20/25 19:40 cerivastatin (From Baycol) AdvReac Intermediate leg cramps Verified 02/20/25 19:40 Family History Father Alzheimer's disease Mother CAD (coronary artery disease) Diabetes Heart disease open heart surgery History of motor vehicle accident Surgical History Stented coronary artery (07/18/22) History of foot surgery ( 07/2019) History of varicose vein stripping History of surgery on upper extremity History of hemorrhoidectomy History of open reduction and internal fixation (ORIF) procedure History of umbilical hernia repair History of tonsillectomy H/O arthroscopy of knee S/P excision of neuroma Social History Smoking Status: Never smoker second hand exposure: Yes alcohol intake: current alcohol intake frequency: a few times a month substance use type: does not use caffeine: Yes Type: coffee Number of servings: 1 ROS ROS ED Constitutional Constitutional ED: Reports chills and fever(s); Denies subjective or sweats Eyes Eyes: Denies blurry vision or omar (more content not included)... Normal [facility] Eosinophil percentageOrdered By: Juventino Naranjo on 02-20-2025 Eosinophils/100 WBC (Bld) 1.0 % Normal 0-5 [facility] Comment on above: Performed By: #### L 500.2500, L100.0100, L503.6005 #### [facility] [address] [place], [place], [id number] Erythrocyte distribution wid th ratioOrdered By: Juventino Naranjo on 02-20-2025 Erythrocyte distribution width (RBC) [Ratio] 12.8 % Normal 11.6-14.6 [facility] Comment on above: Performed By: #### L 500.2500, L100.0100, L503.6005 #### [facility] [address] [place], [address] Erythrocyte distribution wid th standard deviationOrdered By: Juventino Naranjo on 02-20-2025 Erythrocyte distribution width (RBC) [Ratio] 42.5 fl 35.1-43.9 [facility] Glomerular filtration rate ( GFR) estimation/1.73 sq m using serum, plasma, or whole bOrdered By: Juventino Naranjo on 02-20-2025 GFR/1.73 sq M.predicted among non-blacks MDRD (S/P/Bld) [Vol rate/Area] 82 mL/min/{1.73_m2} Normal >60 [facility] Comment on above: mL/min/1.73m2 CKD-EP I Creatinine Equation (2020) Result Comment: mL/m in/1.73m2 CKD-EPI Creatinine Equation (2020) Performed By: #### L 500.2500, L100.0100, L503.6005 #### [facility] [address] [place], [place], [id number] Hemoglobin measurementOrdere d By: Juventino Naranjo on 02-20-2025 Hemoglobin (Bld) [Mass/Vol] 14.7 g/dL Normal 13.0-16.5 [facility] Comment on above: Performed By: #### L 500.2500, L100.0100, L503.6005 #### [facility] [address] [place], [address] Immature granulocytes/100 WB C Auto (Bld)Ordered By: Juventino Naranjo on 02-20-2025 Immature granulocytes/100 WBC (Bld) 0.100 % 0.0-0.9 [facility] Comment on above: IG% - Immature Granu locytes (promyelocytes, myelocytes and metamyelocytes) > 1% indicates that a LEFT SHIFT is Present. Lactic acid measurementOrder ed By: Juventino Naranjo on 02-20-2025 Lactate [Moles/Vol] 1.4 mmol/L Normal 0.0-2.0 [facility] Comment on above: Order Comment: Y Performed By: #### L 500.2500, L100.0100, L503.6005 #### [facility] [address] [place], [address] MCV (mean corpuscular volume ) determinationOrdered By: Juventino Naranjo on 02-20-2025 MCV (RBC) [Entitic vol] 91.5 fL Normal 80-94 [facility] Comment on above: Performed By: #### L 500.2500, L100.0100, L503.6005 #### [facility] [address] [place], [address] Mean corpuscular hemoglobin (MCH) determinationOrdered By: Juventino Naranjo on 02-20-2025 MCH (RBC) [Entitic mass] 31.1 pg Normal 27.0-32.0 [facility] Comment on above: Performed By: #### L 500.2500, L100.0100, L503.6005 #### [facility] [address] [place], [address] Mean corpuscular hemoglobin concentration (MCHC) determinationOrdered By: Juventino Naranjo on 02-20-2025 MCHC (RBC) [Mass/Vol] 33.9 g/dL Normal 32-36 [facility] Comment on above: Performed By: #### L 500.2500, L100.0100, L503.6005 #### [facility] [address] [place], [address] Mean platelet volume determi nationOrdered By: Juventino Naranjo on 02-20-2025 Platelet mean volume (Bld) [Entitic vol] 10.1 fL Normal 6.2-12.0 [facility] Comment on above: Performed By: #### L 500.2500, L100.0100, L503.6005 #### [facility] [address] [place], [address] Monocyte percentageOrdered B y: Juventino Naranjo on 02-20-2025 Monocytes/100 WBC (Bld) 15.5 % High 0-10 [facility] Comment on above: Performed By: #### L 500.2500, L100.0100, L503.6005 #### [facility] [address] [place], [address] Neutrophil percentageOrdered By: Juventino Naranjo on 02-20-2025 Neutrophils/100 WBC (Bld) 66.2 % Normal 47-70 [facility] Comment on above: Performed By: #### L 500.2500, L100.0100, L503.6005 #### [facility] [address] [place], [address] Nucleated red blood cell per centageOrdered By: Juventino Naranjo on 02-20-2025 Nucleated RBC/100 WBC (Bld) [Ratio] 0 % 0-5 [facility] Platelet countOrdered By: Ug o Naranjo on 02-20-2025 Platelets (Bld) [#/Vol] 179 10*3/uL Normal 150-450 [facility] Comment on above: Performed By: #### L 500.2500, L100.0100, L503.6005 #### [facility] [address] [place], [address] Potassium measurement (mass/ volume)Ordered By: Juventino Naranjo on 02-20-2025 Potassium (Unsp spec) [Mass/Vol] 4.3 mmol/L 3.3-5.1 [facility] Serum creatinine measurement (mass/volume)Ordered By: Juventinocarlo Harpero on 02-20-2025 Creatinine [Mass/Vol] 1.00 mg/dL Normal 0.70-1.20 [facility] Comment on above: Performed By: #### L 500.2500, L100.0100, L503.6005 #### [facility] [address] [place], [address] Serum glucose measurement (m ass/volume)Ordered By: Juventinocarlo Harepro on 02-20-2025 Glucose [Mass/Vol] 135 mg/dL High 70-99 [facility] Comment on above: Performed By: #### L 500.2500, L100.0100, L503.6005 #### [facility] [address] [place], [address] Serum or plasma calcium alfred urement (mass/volume)Ordered By: Juventinocarlo Harpero on 02-20-2025 Calcium [Mass/Vol] 9.2 mg/dL Normal 7.6-11.0 [facility] Comment on above: Performed By: #### L 500.2500, L100.0100, L503.6005 #### [facility] [address] [place], [address] Serum or plasma urea nitroge n measurement (mass/volume)Ordered By: Juventino Naranjo on 02-20-2025 Urea nitrogen [Mass/Vol] 18 mg/dL Normal 4-19 [facility] Comment on above: Performed By: #### L 500.2500, L100.0100, L503.6005 #### [facility] [address] [place], [address] Sodium levelOrdered By: Juventinocarlo Harpero on 02-20-2025 Sodium [Moles/Vol] 140 mmol/L Normal 133-145 [facility] Comment on above: Performed By: #### L 500.2500, L100.0100, L503.6005 #### [facility] [address] [place], [address] White blood cell (WBC) count Ordered By: Juventino Naranjo on 02-20-2025 WBC (Bld) [#/Vol] 8.0 10*3/uL Normal 4.4-11.0 [facility] Comment on above: Performed By: #### L 500.2500, L100.0100, L503.6005 #### [facility] [address] [place], [place], [address] Cardiology Visit Reporton Cardiology Visit Report [facility] [address] [place], [place] [address] OFFICE VISIT Date of Service: 02/19/25 MR#: [id number] Acct: [id number] Name: KETAN COTTON Rep #: [id number] : 1955 Provider: Dr. Slade gonzales MD Age/Sex: 69/M Location[place] [facility] [place] Status: Signed HPI HPI History of Present Illness Details: Patient is a pleasant 69-year-old white male that comes in today for monitor of his cardiovascular status. The patient [place] and developed some chest discomfort and pressure sensation for several days. It actually went away when he took some aspirin but he had been there a few days as well. The patient denies that this felt like his prior angina which was a severe left- sided chest pain that went down his left arm. The patient does have a known history of coronary disease status post stenting of the LAD in 2021. He also had a recent monitor December 21 through January 04, 2025 where he was having 8 and 9 beats of nonsustained ventricular tachycardia. The patient does not remember having any symptoms he did not record any symptoms in the diary. The patient does have a history of obstructive sleep apnea and he utilizes his CPAP religiously. He actually took it with him on vacation when he was out [place]. He also has a history of bradycardia heart rate in office today was 60 bpm. He also has a history of dyspnea on exertion and shortness of breath. He feels that primarily he was short of breath with some chest tightness when he was out [place]. The patient denies any significant lower extremity edema he has no other significant complaints. He is wishing to get back into an exercise program and do swimming. Intake Vital Signs 10/22/24 13:14 02/19/25 11:19 Height 5 ft 10 in 5 ft 10 in Weight: 205 lb 207 lb BMI 29.4 29.7 BP 115/73 117/73 Blood Pressure Location Lt brachial Lt brachial Position Sitting Sitting Respiration 20 H 18 Pulse 62 62 Pulse Source Monitor Monitor Temp 97.7 F L Temperature Source Temporal Artery Pulse Oximetry (%) 97 95 Oxygen Delivery Method room air room air Intake Visit Reasons: 6 M FU Stitch Cleaner Required: No Accompanied by: self Is patient in pain?: No Allergies erythromycin base Allergy (Intermediate, Verified 02/19/25 11:20) Nausea/Vom/Diarrhea niacin (From Niaspan Extended-Release) Allergy (Intermediate, Verified 02/19/25 11:20) Hives Penicillins Allergy (Verified 02/19/25 11:20) Unknown atorvastatin Adverse Reaction (Intermediate, Verified 02/19/25 11:20) myalgias cerivastatin (From Baycol) Adverse Reaction (Intermediate, Verified 02/19/25 11:20) leg cramps Medications ???Medication ???Instructions ???Recorded ???Confirmed ???Type multivitamin 1 tab PO DAILY Check with primary 07/16/22 02/19/25 History doctor tamsulosin 0.4 mg capsule 0.4 mg PO DAILY Check with primary 07/16/22 02/19/25 History doctor aspirin 81 mg tablet,delayed 81 mg PO BREAKFAST #30 tabs 02/19/25 Rx release diclofenac sodium 1 % topical gel 2 g topical ONCE PRN 01/09/23 History albuterol sulfate 90 mcg/actuation 2 puff inhalation Q6H PRN 02/19/25 History aerosol inhaler nitroglycerin 0.4 mg sublingual 0.4 mg sublingual Q5M PRN 07/05/23 02/19/25 Rx tablet Cardiac/Chest Pain #25 tabs sildenafil 100 mg tablet (Viagra) 100 mg PO DAILY PRN sexual 02/19/25 Rx activity #10 tabs acetaminophen 500 mg capsule 500 mg PO DAILY 04/15/24 02/19/25 History loratadine 10 mg tablet 10 mg PO DAILY Allergies 04/15/24 02/19/25 History fluticasone 250 mcg-salmeterol 50 1 ea inhalation BID 07/15/2401/29 History mcg/dose blistr powdr for inhalation metoprolol succinate 25 mg 25 mg PO DAILY #90 tabs 08/16/24 0 02/19/25 Rx tablet,extended release 24 hr (Toprol XL) pantoprazole 40 mg tablet,delayed 40 mg PO QDAY 10/22/24 02/19/25 H istory release losartan 25 mg tablet 25 mg PO DAILY #90 tabs 10/23/24 0 02/19/25 Rx rosuvastatin 20 mg tablet See Rx Instructions .Route 5 02/19/25 Rx .COMPLEX #90 tabs ferrous sulfate 325 mg (65 mg 325 mg PO QDAY 02/19/25 02/19/25 H istory iron) tablet (Feosol) magnesium glycinate 100 mg (as 100 mg PO QDAY 02/19/25 02/19/25 H istory glycinate) tablet Have you fallen in the past year?: No PFSH Medical History Chest pain Hyperlipidemia Atherosclerotic heart disease of [place] coronary artery without angina pectoris Non-ST elevation NM (NSTEMI) Hemorrhoids Enthesopathy of hip region GERD (gastroesophageal reflux disease) Generalized anxiety disorder History of vitamin D deficiency Surgical History ... [facility] 01-15-2025 [facility] Telephone (FAMPWS) -- CHRISTIEKETAN FERNANDES ([id number]) 1955 M Date Time Provider Department 01/15/25 BLAKE WILCOX During your visit today, we recorded the following information about you: Blake Wilcox MD 01/15/2025 9:40 AM Signed Let him know the monitor shows he occasionally dips down in rate but he has some episodes actually of svt or faster heart rates. Let him know we will send it over to his underwriting clerk. Can we fax the prelim zio over to Dr Carey at [facility] and let them know we ordered it because his fit bit was showing bradycardia. Pato Brewster LPN 01/15/2025 11:43 AM Signed Patient notified and verbalizes understanding. Allergies As of Date: 01/15/2025 Noted Allergy Reaction BAYCOL 07/05/2023 5 - Intolerance Comments: Leg cramps ERYTHROMYCIN 08/30/2005 5 - Intolerance Comments: GI upset LIPITOR (ATORVASTATIN CALCIUM) 08/30/2005 5 - Intolerance Comments: leg pain,weakness NIASPAN (NIACIN) 10/04/2010 4 - Hives PENICILLINS 08/30/2005 4 - Hives Comments: hives SEASONAL ALLERGIES 07/05/2023 14 - Other: See Comments Comments: Cockroaches, trees, weeds Date Reviewed: 12/16/2024 Reviewed by: Lynn Ibrahim MA - Fully Assessed Reason for Visit: Results [95] Prescriptions as of 01/15/2025 - tamsulosin (FLOMAX) 0.4 mg Take 1 capsule by mouth daily at bedtime. - esomeprazole (NEXIUM) 40 mg capsule Take 1 capsule by mouth once daily. - rosuvastatin (CRESTOR) 20 mg tablet Take 1 tablet by mouth daily at bedtime. - fluticasone-salmeterol (ADVAIR DISKUS) 250-50 mcg/dose inhaler Inhale 1 Puff as instructed two times a day. Rinse and gargle mouth after use with water. - nitroglycerin sublingual (NITROQUICK) 0.4 mg SL tablet Dissolve 1 tablet under the tongue every 5 minutes as needed for chest pain. - melatonin 10 mg tab Take 10 mg by mouth daily at bedtime. - losartan (COZAAR) 25 mg tablet Take 25 mg by mouth once daily. - aspirin, enteric coated (ASPIRIN, ENTERIC COATED) 81 mg EC tablet Take 81 mg by mouth daily with breakfast. - metoprolol succinate ER (TOPROL XL) 25 mg 24 hr tablet Take 25 mg by mouth once daily. - diclofenac (VOLTAREN) 1 % topical gel Apply 2 g to affected area twice daily as needed. - COMPOUNDED PRESCRIPTION [facility] Push Brace to be used daily as directed. - Compression Knee Highs KNEE HIGH COMPRESSION STOCKINGS 20-30 MM. DX: EDEMA, varicose veins - kpcfofgb-qog-XM-lycopen-leonides tein (CENTRUM SILVER MEN) 300-600-300 mcg tab Take 1 tablet by mouth once daily. 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 Internal hemorrhoids without mention of complic*11/05/2010 Generalized anxiety disorder [F41.1] 10/09/2015 Other social stressor [Z65.9] 10/09/2015 09/19/2022 Dizziness [R42] 10/19/2015 09/19/2022 Bilateral carotid artery stenosis [I65.23] 10/28/2015 Stress and adjustment reaction [F43.29] 03/03/2016 Hypogonadism in male [E29.1] Left foot drop [M21.372] 03/21/2018 Neck pain [M54.2] 03/21/2018 09/19/2022 Gastroesophageal reflux disease with esophagiti*12/10/2020 06/17/2024 NOE (obstructive sleep apnea) [G47.33] 09/19/2022 Coronary artery disease involving [place] heart *03/20/2023 Obesity, Class I, BMI 30-34.9 [E66.811] 12/16/2024 Encounter Status:Closed by PATO BREWSTER on 01/15/25 Normal [facility] CARBOXYHEMOGLOBIN VENon 06- Carboxyhemoglobin (BldV) [Mass fraction] 1.7 % 0.0 - 2.0 % [facility] Comment on above: Carboxyhemoglobin Re ference Range for Smokers: 2.0-8.0% Interpretation and review of laboratory results Normal [facility] Carboxyhemoglobin (BldV) [Mass fraction] 1.7 % Normal 0.0-2.0 [facility] Comment on above: Order Comment: Speci men Type: BLOOD SPECIMEN Ordering Facility: [facility] Address: [address] [place] [address] Result Comment: Carb oxyhemoglobin Reference Range for Smokers: 2.0-8.0% Performed By: #### 5 7021-8 #### [facility] CLIA [id number] [address] [place] [address] [place] CBC W Auto Differential pane l (Bld)on 12-30-2024 Basophils (Bld) [#/Vol] 0.03 10*3/uL [facility] Basophils/100 WBC (Bld) 0.5 % [facility] Differential cell count method Nom (Bld) Auto [facility] Eosinophils (Bld) [#/Vol] 0.11 10*3/uL [facility] Eosinophils/100 WBC (Bld) 1.9 % [facility] Erythrocyte distribution width (RBC) [Ratio] 12.1 % 11.5 - 15.0 % [facility] Hematocrit (Bld) [Volume fraction] 45.8 % 39.0 - 51.0 % [facility] Hemoglobin (Bld) [Mass/Vol] 15.5 g/dL 13.0 - 17.0 g/dL [facility] Immature granulocytes (Bld) [#/Vol] [facility] Immature granulocytes/100 WBC (Bld) 0.3 % [facility] Lymphocytes (Bld) [#/Vol] 1.14 10*3/uL [facility] Lymphocytes/100 WBC (Bld) 19.8 % [facility] MCH (RBC) [Entitic mass] 30.5 pg 26.0 - 34.0 pg [facility] MCHC (RBC) [Mass/Vol] 33.8 g/dL 30.5 - 36.0 g/dL [facility] MCV (RBC) [Entitic vol] 90 fL 80.0 - 100.0 fL [facility] Monocytes (Bld) [#/Vol] 0.65 10*3/uL [facility] Monocytes/100 WBC (Bld) 11.3 % [facility] Neutrophils (Bld) [#/Vol] 3.8 10*3/uL [facility] Neutrophils/100 WBC (Bld) 66.2 % [facility] Nucleated RBC (Bld) [#/Vol] NINF [facility] Nucleated RBC/100 WBC (Bld) [Ratio] 0 % /100 WBC [facility] Platelet mean volume (Bld) [Entitic vol] 10.3 fL 9.0 - 12.7 fL [facility] Platelets (Bld) [#/Vol] 174 10*3/uL [facility] RBC (Bld) [#/Vol] 5.09 10*6/uL 4.20 - 6.0 0 m/uL [facility] WBC (Bld) [#/Vol] 5.75 10*3/uL [facility] Basophils (Bld) [#/Vol] 0.03 10*3/uL Normal <0.11 [facility] Comment on above: Order Comment: Speci men Type: BLOOD SPECIMEN Ordering Facility: [facility] Address: [address] [place] [address] Performed By: #### 5 7021-8 #### [facility] [id number] [address] [place] [address] [place] Basophils/100 WBC (Bld) 0.5 % Normal [facility] Comment on above: Order Comment: Speci men Type: BLOOD SPECIMEN Ordering Facility: [facility] Address: [address] [place] [address] Performed By: #### 5 7021-8 #### [facility] [id number] [address] [place] [address] [place] Differential cell count method Nom (Bld) Auto Normal [facility] Comment on above: Order Comment: Speci men Type: BLOOD SPECIMEN Ordering Facility: [facility] Address: [address] [place] [address] Performed By: #### 5 7021-8 #### [facility] CLIA [id number] [address] [place] [address] [place] Eosinophils (Bld) [#/Vol] 0.11 10*3/uL Normal <0.46 [facility] Comment on above: Order Comment: Speci men Type: BLOOD SPECIMEN Ordering Facility: [facility] Address: [address] [place] [address] Performed By: #### 5 7021-8 #### [facility] CLIA [id number] [address] [place] [address] [place] Eosinophils/100 WBC (Bld) 1.9 % Normal [facility] Comment on above: Order Comment: Speci men Type: BLOOD SPECIMEN Ordering Facility: [facility] Address: [address] [place] [address] Performed By: #### 5 7021-8 #### [facility] CLIA [id number] [address] [place] [address] [place] Erythrocyte distribution width (RBC) [Ratio] 12.1 % Normal 11.5-15.0 [facility] Comment on above: Order Comment: Speci men Type: BLOOD SPECIMEN Ordering Facility: [facility] Address: [address] [place] [address] Performed By: #### 5 7021-8 #### [facility] CLIA [id number] [address] [place] [address] [place] Hematocrit (Bld) [Volume fraction] 45.8 % Normal 39.0-51.0 [facility] Comment on above: Order Comment: Speci men Type: BLOOD SPECIMEN Ordering Facility: [facility] Address: [address] [place] [address] Performed By: #### 5 7021-8 #### [facility] CLIA [id number] [address] [place] [address] [place] Hemoglobin (Bld) [Mass/Vol] 15.5 g/dL Normal 13.0-17.0 [facility] Comment on above: Order Comment: Speci men Type: BLOOD SPECIMEN Ordering Facility: [facility] Address: [address] [place] [address] Performed By: #### 5 7021-8 #### [facility] CLIA [id number] [address] [place] [address] [place] Immature granulocytes (Bld) [#/Vol] 10*3/uL Normal <0.10 [facility] Comment on above: Order Comment: Speci men Type: BLOOD SPECIMEN Ordering Facility: [facility] Address: [address] [place] [address] Performed By: #### 5 7021-8 #### [facility] CLIA [id number] [address] [place] [address] [place] Immature granulocytes/100 WBC (Bld) 0.3 % Normal [facility] Comment on above: Order Comment: Speci men Type: BLOOD SPECIMEN Ordering Facility: [facility] Address: [address] [place] [address] Performed By: #### 5 7021-8 #### [facility] CLIA [id number] [address] [place] [address] [place] Lymphocytes (Bld) [#/Vol] 1.14 10*3/uL Normal 1.00-4.00 [facility] Comment on above: Order Comment: Speci men Type: BLOOD SPECIMEN Ordering Facility: [facility] Address: [address] [place] [address] Performed By: #### 5 7021-8 #### [facility] CLIA [id number] [address] [place] [address] [place] Lymphocytes/100 WBC (Bld) 19.8 % Normal [facility] Comment on above: Order Comment: Speci men Type: BLOOD SPECIMEN Ordering Facility: [facility] Address: [address] [place] [address] Performed By: #### 5 7021-8 #### [facility] CLIA [id number] [address] [place] [address] [place] MCH (RBC) [Entitic mass] 30.5 pg Normal 26.0-34.0 [facility] Comment on above: Order Comment: Speci men Type: BLOOD SPECIMEN Ordering Facility: [facility] Address: [address] [place] [address] Performed By: #### 5 7021-8 #### [facility] CLIA [id number] [address] [place] [address] [place] MCHC (RBC) [Mass/Vol] 33.8 g/dL Normal 30.5-36.0 [facility] Comment on above: Order Comment: Speci men Type: BLOOD SPECIMEN Ordering Facility: [facility] Address: [address] [place] [address] Performed By: #### 5 7021-8 #### [facility] CLIA [id number] [address] [place] [address] [place] MCV (RBC) [Entitic vol] 90.0 fL Normal 80.0-100.0 [facility] Comment on above: Order Comment: Speci men Type: BLOOD SPECIMEN Ordering Facility: [facility] Address: [address] [place] [address] Performed By: #### 5 7021-8 #### [facility] CLIA [id number] [address] [place] [address] [place] Monocytes (Bld) [#/Vol] 0.65 10*3/uL Normal <0.87 [facility] Comment on above: Order Comment: Speci men Type: BLOOD SPECIMEN Ordering Facility: [facility] Address: [address] [place] [address] Performed By: #### 5 7021-8 #### [facility] CLIA [id number] [address] [place] [address] [place] Monocytes/100 WBC (Bld) 11.3 % Normal [facility] Comment on above: Order Comment: Speci men Type: BLOOD SPECIMEN Ordering Facility: [facility] Address: [address] [place] [address] Performed By: #### 5 7021-8 #### [facility] CLIA [id number] [address] [place] [address] [place] Neutrophils (Bld) [#/Vol] 3.80 10*3/uL Normal 1.45-7.50 [facility] Comment on above: Order Comment: Speci men Type: BLOOD SPECIMEN Ordering Facility: [facility] Address: [address] [place] [address] Performed By: #### 5 7021-8 #### [facility] CLIA [id number] [address] [place] [address] [place] Neutrophils/100 WBC (Bld) 66.2 % Normal [facility] Comment on above: Order Comment: Speci men Type: BLOOD SPECIMEN Ordering Facility: [facility] Address: [address] [place] [address] Performed By: #### 5 7021-8 #### [facility] CLIA [id number] [address] [place] [address] [place] Nucleated RBC (Bld) [#/Vol] 10*3/uL Normal <0.01 [facility] Comment on above: Order Comment: Speci men Type: BLOOD SPECIMEN Ordering Facility: [facility] Address: [address] [place] [address] Performed By: #### 5 7021-8 #### [facility] CLIA [id number] [address] [place] [address] [place] Nucleated RBC/100 WBC (Bld) [Ratio] 0.0 /100 WBC Normal [facility] Comment on above: Order Comment: Speci men Type: BLOOD SPECIMEN Ordering Facility: [facility] Address: [address] [place] [address] Performed By: #### 5 7021-8 #### [facility] CLIA [id number] [address] [place] [address] [place] Platelet mean volume (Bld) [Entitic vol] 10.3 fL Normal 9.0-12.7 [facility] Comment on above: Order Comment: Speci men Type: BLOOD SPECIMEN Ordering Facility: [facility] Address: [address] [place] [address] Performed By: #### 5 7021-8 #### [facility] CLIA [id number] [address] [place] [address] [place] Platelets (Bld) [#/Vol] 174 10*3/uL Normal 150-400 [facility] Comment on above: Order Comment: Speci men Type: BLOOD SPECIMEN Ordering Facility: [facility] Address: [address] [place] [address] Performed By: #### 5 7021-8 #### [facility] CLIA [id number] [address] [place] [address] [place] RBC (Bld) [#/Vol] 5.09 10*6/uL Normal 4.20-6.00 [facility] Comment on above: Order Comment: Speci men Type: BLOOD SPECIMEN Ordering Facility: [facility] Address: [address] [place] [address] Performed By: #### 5 7021-8 #### [facility] CLIA [id number] [address] [place] [address] [place] WBC (Bld) [#/Vol] 5.75 10*3/uL Normal 3.70-11.00 [facility] Comment on above: Order Comment: Speci men Type: BLOOD SPECIMEN Ordering Facility: [facility] Address: [address] [id number] Performed By: #### 5 7021-8 #### [facility] CLIA [id number] [address] [place] [address] [place] CBC W Auto Differential pane l (Bld)on 12-17-2024 Basophils (Bld) [#/Vol] 0.04 10*3/uL Normal <0.11 [facility] Comment on above: Order Comment: Speci men Type: BLOOD SPECIMEN Ordering Facility: [facility] Address: [address] [place] [address] Performed By: #### 5 7021-8 #### [facility] CLIA [id number] [address] [place] [address] [place] Basophils/100 WBC (Bld) 0.5 % Normal [facility] Comment on above: Order Comment: Speci men Type: BLOOD SPECIMEN Ordering Facility: [facility] Address: [address] [place] [address] Performed By: #### 5 7021-8 #### [facility] CLIA [id number] [address] [place] [address] [place] Differential cell count method Nom (Bld) Auto Normal [facility] Comment on above: Order Comment: Speci men Type: BLOOD SPECIMEN Ordering Facility: [facility] Address: [address] [place] [address] Performed By: #### 5 7021-8 #### [facility] CLIA [id number] [address] [place] [address] [place] Eosinophils (Bld) [#/Vol] 0.08 10*3/uL Normal <0.46 [facility] Comment on above: Order Comment: Speci men Type: BLOOD SPECIMEN Ordering Facility: [facility] Address: [address] [place] [address] Performed By: #### 5 7021-8 #### [facility] CLIA [id number] [address] [place] [address] [place] Eosinophils/100 WBC (Bld) 1.1 % Normal [facility] Comment on above: Order Comment: Speci men Type: BLOOD SPECIMEN Ordering Facility: [facility] Address: [address] [place] [address] Performed By: #### 5 7021-8 #### [facility] CLIA [id number] [address] [place] [address] [place] Erythrocyte distribution width (RBC) [Ratio] 12.1 % Normal 11.5-15.0 [facility] Comment on above: Order Comment: Speci men Type: BLOOD SPECIMEN Ordering Facility: [facility] Address: [address] [place] [address] Performed By: #### 5 7021-8 #### [facility] CLIA [id number] [address] [place] [address] [place] Hematocrit (Bld) [Volume fraction] 49.6 % Normal 39.0-51.0 [facility] Comment on above: Order Comment: Speci men Type: BLOOD SPECIMEN Ordering Facility: [facility] Address: [address] [place] [address] Performed By: #### 5 7021-8 #### [facility] CLIA [id number] [address] [place] [address] [place] Hemoglobin (Bld) [Mass/Vol] 17.2 g/dL High 13.0-17.0 [facility] Comment on above: Order Comment: Speci men Type: BLOOD SPECIMEN Ordering Facility: [facility] Address: [address] [place] [address] Performed By: #### 5 7021-8 #### [facility] CLIA [id number] [address] [place] [address] [place] Immature granulocytes (Bld) [#/Vol] 10*3/uL Normal <0.10 [facility] Comment on above: Order Comment: Speci men Type: BLOOD SPECIMEN Ordering Facility: [facility] Address: [address] [place] [address] Performed By: #### 5 7021-8 #### [facility] CLIA [id number] [address] [place] [address] [place] Immature granulocytes/100 WBC (Bld) 0.3 % Normal [facility] Comment on above: Order Comment: Speci men Type: BLOOD SPECIMEN Ordering Facility: [facility] Address: [address] [place] [address] Performed By: #### 5 7021-8 #### [facility] CLIA [id number] [address] [place] [address] [place] Lymphocytes (Bld) [#/Vol] 1.05 10*3/uL Normal 1.00-4.00 [facility] Comment on above: Order Comment: Speci men Type: BLOOD SPECIMEN Ordering Facility: [facility] Address: [address] [place] [address] Performed By: #### 5 7021-8 #### [facility] CLIA [id number] [address] [place] [address] [place] Lymphocytes/100 WBC (Bld) 14.1 % Normal [facility] Comment on above: Order Comment: Speci men Type: BLOOD SPECIMEN Ordering Facility: [facility] Address: [address] [place] [address] Performed By: #### 5 7021-8 #### [facility] CLIA [id number] [address] [place] [address] [place] MCH (RBC) [Entitic mass] 30.9 pg Normal 26.0-34.0 [facility] Comment on above: Order Comment: Speci men Type: BLOOD SPECIMEN Ordering Facility: [facility] Address: [address] [place] [address] Performed By: #### 5 7021-8 #### [facility] CLIA [id number] [address] [place] [address] [place] MCHC (RBC) [Mass/Vol] 34.7 g/dL Normal 30.5-36.0 [facility] Comment on above: Order Comment: Speci men Type: BLOOD SPECIMEN Ordering Facility: [facility] Address: [address] [place] [address] Performed By: #### 5 7021-8 #### [facility] CLIA [id number] [address] [place] [address] [place] MCV (RBC) [Entitic vol] 89.2 fL Normal 80.0-100.0 [facility] Comment on above: Order Comment: Speci men Type: BLOOD SPECIMEN Ordering Facility: [facility] Address: [address] [place] [address] Performed By: #### 5 7021-8 #### [facility] CLIA [id number] [address] [place] [address] [place] Monocytes (Bld) [#/Vol] 0.61 10*3/uL Normal <0.87 [facility] Comment on above: Order Comment: Speci men Type: BLOOD SPECIMEN Ordering Facility: [facility] Address: [address] [place] [address] Performed By: #### 5 7021-8 #### [facility] CLIA [id number] [address] [place] [address] [place] Monocytes/100 WBC (Bld) 8.2 % Normal [facility] Comment on above: Order Comment: Speci men Type: BLOOD SPECIMEN Ordering Facility: [facility] Address: [address] [place] [address] Performed By: #### 5 7021-8 #### [facility] CLIA [id number] [address] [place] [address] [place] Neutrophils (Bld) [#/Vol] 5.65 10*3/uL Normal 1.45-7.50 [facility] Comment on above: Order Comment: Speci men Type: BLOOD SPECIMEN Ordering Facility: [facility] Address: [address] [place] [address] Performed By: #### 5 7021-8 #### [facility] CLIA [id number] [address] [place] [address] [place] Neutrophils/100 WBC (Bld) 75.8 % Normal [facility] Comment on above: Order Comment: Speci men Type: BLOOD SPECIMEN Ordering Facility: [facility] Address: [address] [place] [address] Performed By: #### 5 7021-8 #### [facility] CLIA [id number] [address] [place] [address] [place] Nucleated RBC (Bld) [#/Vol] 10*3/uL Normal <0.01 [facility] Comment on above: Order Comment: Speci men Type: BLOOD SPECIMEN Ordering Facility: [facility] Address: [address] [place] [address] Performed By: #### 5 7021-8 #### [facility] CLIA [id number] [address] [place] [address] [place] Nucleated RBC/100 WBC (Bld) [Ratio] 0.0 /100 WBC Normal [facility] Comment on above: Order Comment: Speci men Type: BLOOD SPECIMEN Ordering Facility: [facility] Address: [address] [place] [address] Performed By: #### 5 7021-8 #### [facility] CLIA [id number] [address] [place] [address] [place] Platelet mean volume (Bld) [Entitic vol] 10.6 fL Normal 9.0-12.7 [facility] Comment on above: Order Comment: Speci men Type: BLOOD SPECIMEN Ordering Facility: [facility] Address: [address] [place], [place] [address] Performed By: #### 5 7021-8 #### [facility] CLIA [id number] [address] [place] [address] [place] Platelets (Bld) [#/Vol] 192 10*3/uL Normal 150-400 [facility] Comment on above: Order Comment: Speci men Type: BLOOD SPECIMEN Ordering Facility: [facility] Address: [address] [place], [place] [address] Performed By: #### 5 7021-8 #### [facility] CLIA [id number] [address] [place] [address] [place] RBC (Bld) [#/Vol] 5.56 10*6/uL Normal 4.20-6.00 [facility] Comment on above: Order Comment: Speci men Type: BLOOD SPECIMEN Ordering Facility: [facility] Address: [address] [place] [address] Performed By: #### 5 7021-8 #### [facility] CLIA [id number] [address] [place] [address] [place] WBC (Bld) [#/Vol] 7.45 10*3/uL Normal 3.70-11.00 [facility] Comment on above: Order Comment: Speci men Type: BLOOD SPECIMEN Ordering Facility: [facility] Address: [address] [place] [address] Performed By: #### 5 7021-8 #### [facility] CLIA [id number] [address] [place] [address] [facility] [place] Comprehensive metabolic 2000 panelon 12-17-2024 Albumin [Mass/Vol] 4.4 g/dL Normal 3.9-4.9 [facility] Comment on above: Order Comment: Speci men Type: BLOOD SPECIMEN Ordering Facility: [facility] Address: [address] [place] [address] Performed By: #### 5 7021-8 #### [facility] [place] CLIA [id number] [address] [place] [address] [place] ALP [Catalytic activity/Vol] 80 U/L Normal 38-113 [facility] Comment on above: Order Comment: Speci men Type: BLOOD SPECIMEN Ordering Facility: [facility] Address: [address] [place] [address] Performed By: #### 5 7021-8 #### [facility] CLIA [id number] [address] [place] [address] [place] ALT [Catalytic activity/Vol] 25 U/L Normal 10-54 [facility] Comment on above: Order Comment: Speci men Type: BLOOD SPECIMEN Ordering Facility: [facility] Address: [address] [place] [address] Performed By: #### 5 7021-8 #### [facility] CLIA [id number] [address] [place] [address] [place] Anion gap [Moles/Vol] 12 mmol/L Normal 8-15 [facility] Comment on above: Order Comment: Speci men Type: BLOOD SPECIMEN Ordering Facility: [facility] Address: [address] [place] [address] Performed By: #### 5 7021-8 #### [facility] CLIA [id number] [address] [place] [address] [place] AST [Catalytic activity/Vol] 22 U/L Normal 14-40 [facility] Comment on above: Order Comment: Speci men Type: BLOOD SPECIMEN Ordering Facility: [facility] Address: [address] [place] [address] Performed By: #### 5 7021-8 #### [facility] CLIA [id number] [address] [place] [address] [place] Bilirubin [Mass/Vol] 0.9 mg/dL Normal 0.2-1.3 [facility] Comment on above: Order Comment: Speci men Type: BLOOD SPECIMEN Ordering Facility: [facility] Address: [address] [place] [address] Performed By: #### 5 7021-8 #### [facility] CLIA [id number] [address] [place] [address] [place] Calcium [Mass/Vol] 9.4 mg/dL Normal 8.5-10.2 [facility] Comment on above: Order Comment: Speci men Type: BLOOD SPECIMEN Ordering Facility: [facility] Address: [address] [place] [address] Performed By: #### 5 7021-8 #### [facility] CLIA [id number] [address] [place] [address] [place] Chloride [Moles/Vol] 103 mmol/L Normal 98-107 [facility] Comment on above: Order Comment: Speci men Type: BLOOD SPECIMEN Ordering Facility: [facility] Address: [address] [place] [address] Performed By: #### 5 7021-8 #### [facility] CLIA [id number] [address] [place] [address] [place] CO2 [Moles/Vol] 24 mmol/L Normal 22-30 [facility] Comment on above: Order Comment: Speci men Type: BLOOD SPECIMEN Ordering Facility: [facility] Address: [address] [place] [address] Performed By: #### 5 7021-8 #### [facility] CLIA [id number] [address] [place] [address] [place] Creatinine [Mass/Vol] 0.88 mg/dL Normal 0.73-1.22 [facility] Comment on above: Order Comment: Speci men Type: BLOOD SPECIMEN Ordering Facility: [facility] Address: [address] [place] [address] Performed By: #### 5 7021-8 #### [facility] [id number] [address] [place] [address] [place] Creatinine and Glomerular filtration rate.predicted panel (S/P/Bld) 93 mL/min/1.73m??? Normal >=60 [facility] Comment on above: Order Comment: Nely cobos Type: BLOOD SPECIMEN Ordering Facility: [facility] Address: [address] [place] [address] Result Comment: Jessica mated Glomerular Filtration Rate (eGFR) is calculated using the 2020 CKD-EPI creatinine equation. This equation utilizes serum creatinine, sex, and age as parameters. The creatinine assay has traceable calibration to isotope dilution-mass spectrometry. Refer to KDIGO guidelines for clinical interpretation. In patients with unstable renal function, e.g. those with acute kidney injury, the eGFR may not accurately reflect actual GFR. Performed By: #### 5 7021-8 #### [facility] [id number] [address] [place] [address] [place] Glucose [Mass/Vol] 107 mg/dL High 74-99 [facility] Comment on above: Order Comment: Nely cobos Type: BLOOD SPECIMEN Ordering Facility: [facility] Address: [address] [place] [address] Result Comment: The [place] [employer] (ADA) provides guidance for cutoff values for fasting glucose and random glucose. The ADA defines fasting as no caloric intake for at least 8 hours. Fasting plasma glucose results between 100 to 125 mg/dL indicate increased risk for diabetes (prediabetes). Fasting plasma glucose results greater than or equal to 126 mg/dL meet the criteria for diagnosis of diabetes. In the absence of unequivocal hyperglycemia, results should be confirmed by repeat testing. In a patient with classic symptoms of hyperglycemia or hyperglycemic crisis, random plasma glucose results greater than or equal to 200 mg/dL meet the criteria for diagnosis of diabetes. Reference: Standards of Medical Care in Diabetes 2016, [place] [employer]. Diabetes Care. 2016.39(Suppl 1). Performed By: #### 5 7021-8 #### [facility] [id number] [address] [place] [address] [place] Potassium [Moles/Vol] 4.1 mmol/L Normal 3.7-5.1 [facility] Comment on above: Order Comment: Speci men Type: BLOOD SPECIMEN Ordering Facility: [facility] Address: [address] [place] [address] Performed By: #### 5 7021-8 #### [facility] CLIA [id number] [address] [place] [address] [place] Protein [Mass/Vol] 7.2 g/dL Normal 6.3-8.0 [facility] Comment on above: Order Comment: Speci men Type: BLOOD SPECIMEN Ordering Facility: [facility] Address: [address] [place], [place] [address] Performed By: #### 5 7021-8 #### [facility] [id number] [address] [place] [address] [place] Sodium [Moles/Vol] 139 mmol/L Normal 136-144 [facility] Comment on above: Order Comment: Speci men Type: BLOOD SPECIMEN Ordering Facility: [facility] Address: [address] [place] [address] Performed By: #### 5 7021-8 #### [facility] [id number] [address] [place] [address] [place] Urea nitrogen [Mass/Vol] 17 mg/dL Normal 9-24 [facility] Comment on above: Order Comment: Speci men Type: BLOOD SPECIMEN Ordering Facility: [facility] Address: [address] [place] [address] Performed By: #### 5 7021-8 #### [facility] [id number] [address] [place] [address] [place] Lipid 1996 panelon 5 Cholesterol [Mass/Vol] 153 mg/dL Normal <200 [facility] Comment on above: Order Comment: Speci men Type: BLOOD SPECIMEN Ordering Facility: [facility] Address: [address] [place] [address] Result Comment: <200 mg/dL, Desirable 200-239 mg/dL, Borderline high >239 mg/dL, High Performed By: #### 5 7021-8 #### [facility] CLIA [id number] [address] [place] [address] [place] Cholesterol in HDL [Mass/Vol] 50 mg/dL Normal >39 [facility] Comment on above: Order Comment: Nely cobos Type: BLOOD SPECIMEN Ordering Facility: [facility] Address: [address] [place] [address] Result Comment: 40-5 9 mg/dL, Acceptable >59 mg/dL, High: Negative risk factor for coronary heart disease <40 mg/dL, Low: Positive risk factor for coronary heart disease Performed By: #### 5 7021-8 #### [facility] CLIA [id number] [address] [place] [address] [place] Cholesterol in LDL [Mass/Vol] 78 mg/dL Normal <100 [facility] Comment on above: Order Comment: Nely chandrika Type: BLOOD SPECIMEN Ordering Facility: [facility] Address: [address] [place] [address] Result Comment: <100 mg/dL, Optimal 100-129 mg/dL, Near optimal/above optimal 130-159 mg/dL, Borderline high 160-189 mg/dL, High >189 mg/dL, Very high Secondary prevention optimal LDL Cholesterol levels are recommended to be <70 mg/dL LDL cholesterol is calculated using the Leon-NIH equation. Performed By: #### 5 7021-8 #### [facility] [id number] [address] [place] [address] [place] Cholesterol in LDL/Cholesterol in HDL [Mass ratio] 1.56 {ratio} Normal <2.54 [facility] Comment on above: Order Comment: Harishrichard cobos Type: BLOOD SPECIMEN Ordering Facility: [facility] Address: [address] [place] [address] Result Comment: Fei jackson: 1. National Cholesterol Education Program ATP III Guideline At-A-Glance Quick Desk Reference: National Heart, Lung, and Blood [place]. National Institutes of Health. 2001: NIH Publication No. 01-3305. 2. An International Atherosclerosis Society position paper: global recommendations for the management of dyslipidemia: executive summary, Atherosclerosis. 2014: 232(2):410-413. Performed By: #### 5 7021-8 #### [facility] CLIA [id number] [address] [place] [address] [place] Cholesterol in VLDL [Mass/Vol] 22 mg/dL Normal <30 [facility] Comment on above: Order Comment: Nely cobos Type: BLOOD SPECIMEN Ordering Facility: [facility] Address: [address] [place] [address] Performed By: #### 5 7021-8 #### [facility] [id number] [address] [place] [address] [place] Cholesterol non HDL [Mass/Vol] 103 mg/dL Normal <130 [facility] Comment on above: Order Comment: Nely cobos Type: BLOOD SPECIMEN Ordering Facility: [facility] Address: [address] [place] [address] Result Comment: <130 mg/dL, Optimal 130-159 mg/dL, Near optimal/above optimal 160-189 mg/dL, Borderline high 190-219 mg/dL, High >219 mg/dL, Very high Secondary prevention optimal non HDL Cholesterol levels are recommended to be <100 mg/dL Performed By: #### 5 7021-8 #### [facility] [id number] [address] [place] [address] [place] Cholesterol.total/Chol esterol in HDL [Mass ratio] 3.06 {ratio} Normal <5.10 [facility] Comment on above: Order Comment: Nely cobos Type: BLOOD SPECIMEN Ordering Facility: [facility] Address: [address] [place] [address] Performed By: #### 5 7021-8 #### [facility] CLIA [id number] [address] [place] [address] [place] FASTING TIME 12 hrs Normal [facility] Comment on above: Order Comment: Speci men Type: BLOOD SPECIMEN Ordering Facility: [facility] Address: [address] [place] [address] Performed By: #### 5 7021-8 #### [facility] CLIA [id number] [address] [place] [address] [place] Triglyceride [Mass/Vol] 142 mg/dL Normal <150 [facility] Comment on above: Order Comment: Speci men Type: BLOOD SPECIMEN Ordering Facility: [facility] Address: [address] [place] [address] Result Comment: <150 mg/dL, Normal 150-199 mg/dL, Borderline high 200-499 mg/dL, High >499 mg/dL, Very high Performed By: #### 5 7021-8 #### [facility] CLIA [id number] [address] [place] [address] [place] PSA/PROSTATE SPECIFIC ANTIGE N SCREENINGon 12-17-2024 Prostate specific Ag [Mass/Vol] 1.29 ng/mL Normal <2.60 [facility] Comment on above: Order Comment: Speci men Type: BLOOD SPECIMEN Ordering Facility: [facility] Address: [address] [place] [address] Result Comment: Tota l PSA test methodology used is the Electrochemiluminescence Immunoassay by [employer]. Total PSA values by differing methodologies cannot be interchanged. Performed By: #### 5 7021-8 #### [facility] CLIA [id number] [address] [place] [address] [place] CNOVon 12-16-2024 CNOV Office Visit (FAMPWS ) -- LULAKETAN Villalobos ([id number]) 1955 M Date Time Provider Department 12/16/24 1:40 PM BLAKE WILCOXWS During your visit today, we recorded the following information about you: Pulse Blood pressure Weight Height 65/minute 110/68 95 kg 1.753 m Blake Wilcox MD 12/16/2024 2:29 PM Signed Start taking Nexium (a proton pump inhibitor) again for your reflux symptoms; the new prescription with refills will be sent. Stop your iron supplement, as it is no longer needed unless there's active bleeding. Discontinue Plavix and oxycodone, as they are no longer required. Continue using your CPAP machine regularly for sleep apnea. Continue taking Crestor (rosuvastatin) along with your metoprolol and losartan; refills for Crestor are being sent to avoid any interruption. Continue taking Flomax for urinary symptoms; if your symptoms worsen, you may need to see a urologist. Complete the fasting blood tests (CBC, CMP, PSA, and lipid) as ordered. Fast (only water or black coffee is allowed) for approximately 12 hours before you get your labs. When you arrive, let the lab know you are there for your labs under Dr. Wilcox. Wear the Zio patch monitor for 2 weeks as instructed so that we can evaluate your heart rate given your episodes of lightheadedness. Monitor your knee pain; if it becomes more bothersome, consider scheduling an appointment with an facilities specialist. Follow up with your underwriting clerk as scheduled (approximately on the 25 of April) and plan to return in about 6 months for your Medicare wellness exam. Blake Wilcox MD 12/16/2024 4:27 PM Signed Timmy is a 69-year-old male with a history of GERD, CAD, and NOE, presenting for a check-up, with additional complaints of increased reflux, lightheadedness, and knee pain. HPI GERD: - Increased reflux symptoms; describes burning acid sensation. - Previously managed with omeprazole, but prescription has run out. - Tried Pepcid with minimal relief. - EGD performed in 2020 showed no significant findings. - Denies dysphagia, melena, or hematochezia. - Currently taking iron supplements, which cause dark stools. CAD: - Followed by [facility]; next appointment with Dr. Carey on April 25. - No angina, dyspnea, or edema. - Taking aspirin and rosuvastatin (Crestor); discontinued Plavix. - Reports bradycardia with heart rate dropping to 48 bpm at night, as per Fitbit readings. - Taking metoprolol and losartan. - Occasional lightheadedness, a couple of times per week, possibly when standing up quickly. - No syncope. - Denies headaches, paresthesia, or new weakness in extremities. - Carotid arteries have been evaluated by cardiology. NOE: - Diagnosed with NOE, using CPAP machine. - Adherence to CPAP use is inconsistent. Urinary Urgency: - Recent onset of urinary urgency, with occasional minor incontinence. - Consumes caffeine sporadically, including coffee and soft drinks. - Taking tamsulosin, but prescription is running low. Knee Pain: - Increased knee pain, frequency not specified. - Previous knee X-rays in May 2024 showed no significant findings. - Discussed seeing ortho if continues. MEDICATIONS: Current Outpatient Medications Medication Sig fluticasone-salmeterol (ADVAIR DISKUS) 250-50 mcg/dose inhaler Inhale 1 Puff as instructed two times a day. Rinse and gargle mouth after use with water. nitroglycerin sublingual (NITROQUICK) 0.4 mg SL tablet Dissolve 1 tablet under the tongue every 5 minutes as needed for chest pain. melatonin 10 mg tab Take 10 mg by mouth daily at bedtime. losartan (COZAAR) 25 mg tablet Take 25 mg by mouth once daily. aspirin, enteric coated (ASPIRIN, ENTERIC COATED) 81 mg EC tablet Take 81 mg by mouth daily with breakfast. metoprolol succinate ER (TOPROL XL) 25 mg 24 hr tablet Take 25 mg by mouth once daily. diclofenac (VOLTAREN) 1 % topical gel Apply 2 g to affected area twice daily as needed. COMPOUNDED PRESCRIPTION CMC Push Brace to be used daily as directed. Compression Knee Highs KNEE HIGH COMPRESSION STOCKINGS 20-30 MM. DX: EDEMA, varicose veins tklhtqlf-rdf-GL-lycopen-leonides tein (CENTRUM SILVER MEN) 300-600-300 mcg tab Take 1 tablet by mouth once daily. tamsulosin (FLOMAX) 0.4 mg Take 1 capsule by mouth daily at bedtime. esomeprazole (NEXIUM) 40 mg capsule Take 1 capsule by mouth once daily. rosuvastatin (CRESTOR) 20 mg tablet Take 1 tablet by mouth daily at bedtime. No current facility-administered medications for this visit. ALLERGIES: ALLERGIES Allergen Reactions Baycol Intolerance Leg cramps Erythromycin Intolerance GI upset Lipitor [Atorvastat* Intolerance leg pain,weakness Niaspan [Niacin] Hives Penicillins Hives hives Seasonal Allergies Other: See Comments Cockroaches, trees, weeds PAST MEDICAL HISTORY Di (more content not included)... Normal [facility] Pulmonary Visit Reporton Pulmonary Visit Report [facility] [place] [address] [facility] [place] [address] OFFICE VISIT Date of Service: 10/22/24 MR#: [id number] Acct: [id number] Name: KETAN COTTON Rep #: [id number] : 1955 Provider: Laureen Chopra NP Age/Sex: 69/M Location: [facility] Status: Signed Assessment and Plan Assessment and Plan (1) NOE (obstructive sleep apnea): Status: Chronic Comment: AHI 59 events per hour Plan: He has been able to increase his compliance with PAP therapy although he is still not optimized fully. The patient however does not agree with the baseline testing that was performed. He does not believe that he had sleep during the night of the study although the test indicates otherwise. The baseline study was reviewed once again with patient today. The patient has a poor sleep hygiene regimen. I have discussed optimal sleep hygiene and have recommended that he implement this which would include avoiding television prior to bedtime. Going into the bed room at 9:00 and reading or listening to a music for 30 minutes prior to falling asleep. I have recommended sleeping with his head of bed elevated. The patient is agreeable to attempt this and I plan to follow-up in 6 months to determine if this has provided him with benefit. The patient understands the risks and comorbid disease processes associated with not treating sleep apnea fully. I believe that this is why his ESS is elevated today because he is missing out on 1 if not 2 sleep cycles. (2) Cough: Status: Chronic Qualifiers: Cough type: chronic Qualified Code(s): R05.3 - Chronic cough Plan: The patient is not interested in pursuing further lung functioning testing today. He is not concerned about his history of cough. I am suspecting mild intermittent asthma versus suboptimal control of GERD. I have discussed the correlation between acid reflux and bronchospasm. I have asked for him to have tighter control of his acid reflux at this time. The patient understands that if cough worsens and/or becomes a daily affair, he should notify this practice. Plan Details Follow Up: 6 Months (LMR) HPI HPI Comments Details: Patient is a 69-year-old male who presents to the office today for follow-up of his obstructive sleep apnea. He is ambulatory, currently on room air. He has not recently been seen in the ED or urgent care. He has not required any antibiotics or prednisone for any breathing problems. The past the patient has had pulmonary testing which reported mild COPD, without reversibility post bronchodilation per his MyChart. The patient was started on an inhaler, which he believes was adva ir. He has not continued to use this on a routine basis. He recently used Tessalon Perles and reports that they were effective for his cough. He has not had a constant cough. He does have albuterol and has not required the use of it. He was also switched from Prevacid to pantoprazole for possible suboptimal control of his GERD. He believes that his acid reflux has worsened since coming off of Prevacid. He has noticed acid in his chest and does have to sleep with his head of bed elevated. The patient does report that the cough is dry and less frequent. He only has shortness of breath on exertion and occasionally when he is bending over to tie his shoes. If you recall, this patient was previously very active and participated in running several days per week. He does report wheezing on occasion. He continues to experience postnasal drip, currently being managed by ENT. He denies any chest tightness, chest pain or palpitations. He also denies any fever, chills or body aches. He does not like PAP therapy. He admits that he has gotten into bad habit of going to the basement to watch TV. He falls asleep on the recliner and does not go upstairs to put his PAP device on. He reports that he does not snore when wearing his PAP device. He reports that he sleeps in a separate bedroom from his spouse as he cannot tolerate the fan blowing, window open and television on in the bedroom. He is napping daily and is not using his PAP device for napping. He denies dry mouth. He reports occasional headache. He is using a nasal mask. He is frustrated with the device because he has to lay real still and try not to move so his headgear does not become dislodged. He reports that he is uncomfortable with having it in place. He feels like he has to keep a conscious effort in order to keep it on his face. He reports that it is a irritant when he would rather be sleeping. He has been able to increase compliance with his PAP device and feels rested on occasion. 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 Some of these jobs are strenuous and physically taxing. Compliance report from October 20, 2024 shows AHI 3.3, 95th percentile pressure is at 12 (more content not included)... Normal [facility] Stress Reporton 08-09-2024 Stress Report [facility] [address] [place] [address] MR#: [id number] Acct: [id number] Name: KETAN COTTON Rep #: [id number] : 1955 68 From: Lety Odonnell MD Primary Care: Dr. Blake Wilcox MD Status: REG CLI Referring Dr: Cinthya Tolliver Sex: M C Stress Test Report Date: 08/08/2024 Procedure: Exercise tolerance test/imaging study Indications: Shortness of breath Consent: Per the patient Procedure: The patient exercised on a Amor protocol for 7 minutes and 25 seconds achieving a peak heart rate of 144 bpm (94% predicted maximal heart rate) with a peak blood pressure 190/80 mmHg and a peak MET capacity of 10.1 METs. The baseline ECG demonstrated normal sinus rhythm. The peak exercise ECG demonstrated no significant ischemic ST-T changes. EKG during recovery revealed no significant ischemic ST-T changes [There were no significant cardiac dysrhythmias pretest, during exercise, or recovery]. The functional capacity was considered normal for age. There was [no complaint of chest discomfort during exercise or recovery]. The examination was discontinued secondary to shortness of breath. Impression: 1. Technically adequate (percent predicted maximal heart rate greater than 85%) exercise tolerance test 2. Stress test is negative for exercise-induced EKG changes of ischemia 3. The test test is negative for exercise-induced chest pain 4. Functional capacity is normal for age 5. Nuclear images pending Myocardial perfusion imaging study: Technique: The patient was injected with 14.3 mCi of technetium 99m Cardiolite and subsequently rest SPECT Cardiolite nuclear imaging was obtained in the horizontal long, vertical long, and short axis views. The patient exercised on a Amor protocol. Please see above for details. The patient was injected with 43.9 mCi of technetium 99m Cardiolite and subsequently stress SPECT Cardiolite nuclear imaging was obtained in the horizontal long, vertical long, and short axis views. A gated Cardiolite study at peak stress was obtained. Interpretation: Rest and stress SPECT Cardiolite nuclear imaging status post realignment, normalization, and attenuation correction, demonstrates mild inferior perfusion defect on the rest images that is better on the stress images. The gated Cardiolite study demonstrates no significant regional wall motion abnormalities. These findings are suggestive of diaphragmatic attenuation artifact. No evidence of significant ischemia or infarction. The reported LVEF is 60%. Impression: 1. There is no evidence of significant ischemia or infarction. 2. The gated Cardiolite study reports an LVEF of 60%. This note was generated with Lockit[employer]ation software. It may contain incorrect words, spelling, and punctuation that were not noted in checking the note before signing. 08/09/24 1600 Date Lety Odonnell MD CC: Dr. Blake Wilcox MD; CLEM Rowell Date Dictated: 08/09/241554 Date Transcribed: 08/09/241554 Metal Furniture Repairer: SANGITA Signed Normal [facility] BNP,B-Type NATRIURETIC PEPTI Aurelia 07-22-2024 Natriuretic peptide B (Bld) [Mass/Vol] 32.3 pg/mL Normal 0-100 [facility] Comment on above: Performed By: #### L 100.0100, L503.6620, L500.4100, L500.4050 #### [facility] [address] [place], [address] CBC W/Diff, Automatedon 12-2 Absolute Lymph 1.37 X10 3/uL Normal 0.83-4.51 [facility] Comment on above: Performed By: #### L 100.0100, L503.6620, L500.4100, L500.4050 #### [facility] [address] [place], [address] Absolute Neut 5.1 X10 3/uL Normal 2.0-7.7 [facility] Comment on above: Performed By: #### L 100.0100, L503.6620, L500.4100, L500.4050 #### [facility] [address] [place], [address] Basophils/100 WBC (Bld) 0.4 % Normal 0-1 [facility] Comment on above: Performed By: #### L 100.0100, L503.6620, L500.4100, L500.4050 #### [facility] [address] [place], [address] Eosinophils/100 WBC (Bld) 2.0 % Normal 0-5 [facility] Comment on above: Performed By: #### L 100.0100, L503.6620, L500.4100, L500.4050 #### [facility] [address] [place], [address] Erythrocyte distribution width (RBC) [Ratio] 12.5 % Normal 11.6-14.6 [facility] Comment on above: Performed By: #### L 100.0100, L503.6620, L500.4100, L500.4050 #### [facility] [address] [place], [address] Hematocrit (Bld) [Volume fraction] 46.9 % Normal 40-54 [facility] Comment on above: Performed By: #### L 100.0100, L503.6620, L500.4100, L500.4050 #### [facility] [address] [place], [address] Hemoglobin (Bld) [Mass/Vol] 15.5 g/dL Normal 13.0-16.5 [facility] Comment on above: Performed By: #### L 100.0100, L503.6620, L500.4100, L500.4050 #### [facility] [address] [place], [address] IG% 0.300 Normal 0.0-0.9 [facility] Comment on above: Result Comment: IG% - Immature Granulocytes (promyelocytes, myelocytes and metamyelocytes) > 1% indicates that a LEFT SHIFT is Present. Performed By: #### L 100.0100, L503.6620, L500.4100, L500.4050 #### [facility] [address] [place], [address] Lymphocytes/100 WBC (Bld) 18.0 % Low 19-41 [facility] Comment on above: Performed By: #### L 100.0100, L503.6620, L500.4100, L500.4050 #### [facility] [address] [place], [address] MCH (RBC) [Entitic mass] 30.5 pg Normal 27.0-32.0 [facility] Comment on above: Performed By: #### L 100.0100, L503.6620, L500.4100, L500.4050 #### [facility] [address] [place], [address] MCHC (RBC) [Mass/Vol] 33.0 g/dL Normal 32-36 [facility] Comment on above: Performed By: #### L 100.0100, L503.6620, L500.4100, L500.4050 #### [facility] [address] [place], [address] MCV (RBC) [Entitic vol] 92.1 fL Normal 80-94 [facility] Comment on above: Performed By: #### L 100.0100, L503.6620, L500.4100, L500.4050 #### [facility] [address] [place], [address] Monocytes/100 WBC (Bld) 12.1 % High 0-10 [facility] Comment on above: Performed By: #### L 100.0100, L503.6620, L500.4100, L500.4050 #### [facility] [address] [place], [address] Neutrophils/100 WBC (Bld) 67.2 % Normal 47-70 [facility] Comment on above: Performed By: #### L 100.0100, L503.6620, L500.4100, L500.4050 #### [facility] [address] [place], [address] Nucleated RBC (Bld) [#/Vol] 0 10*3/uL Normal 0-5 [facility] Comment on above: Performed By: #### L 100.0100, L503.6620, L500.4100, L500.4050 #### [facility] [address] [place], [address] Platelet mean volume (Bld) [Entitic vol] 10.8 fL Normal 6.2-12.0 [facility] Comment on above: Performed By: #### L 100.0100, L503.6620, L500.4100, L500.4050 #### [facility] [address] [place], [address] Platelets (Bld) [#/Vol] 199 10*3/uL Normal 150-450 [facility] Comment on above: Performed By: #### L 100.0100, L503.6620, L500.4100, L500.4050 #### [facility] [address] [place], [address] RBC (Bld) [#/Vol] 5.09 10*6/uL Normal 4.6-6.2 [facility] Comment on above: Performed By: #### L 100.0100, L503.6620, L500.4100, L500.4050 #### [facility] [address] [place], [address] RDW SD 42.4 fl Normal 35.1-43.9 [facility] Comment on above: Performed By: #### L 100.0100, L503.6620, L500.4100, L500.4050 #### [facility] [address] [place], [address] WBC (Bld) [#/Vol] 7.6 10*3/uL Normal 4.4-11.0 [facility] Comment on above: Performed By: #### L 100.0100, L503.6620, L500.4100, L500.4050 #### [facility] [address] [place], [address] Cardiology Visit Reporton Cardiology Visit Report [facility] [place] [facility] [address] [place] [address] OFFICE VISIT Date of Service: 07/22/24 MR#: [id number] Acct: [id number] Name: KETAN COTTON Rep #: [id number] : 1955 Provider: CLEM Li Age/Sex: 68/M Location: [facility] Status: Signed HPI HPI History of Present Illness Details: Ketan Cotton is a 68-year-old gentleman that presents here today for a cardiovascular follow-up. Patient was admitted to [facility] on 07/16/2022 with a non-STEMI. His initial high-sensitivity troponin was 253. It did trend upwards to 998 and 2010. He did undergo a diagnostic heart cath on 07/18/2022 which demonstrated ruptured plaque in the mid LAD at about 70%. This did require PCI and stenting. His RCA was large dominant with low flow but no obstructive arthrosclerosis. Left circumflex large vessel normal angiographically. Patient was not not started on a beta-oscar due to low heart rate. He was discharged home on aspirin, Brilinta, lisinopril and crestor. He did have an echocardiogram which demonstrated an ejection fraction of 55% with mild TR, RVSP 30 mmHg. During his hospital stay he was also diagnosed with hypertension. He was started on a CPAP for his ONE. He does feel that his is more SOB with activities than what he was at his last visit. He does have some atypical CP. He does use his CPAP. He does find that he falls asleep easily. He is still having coughing episodes, he did see ENT for this. Intake Vital Signs 04/15/24 07:56 07/15/24 07:34 07/22/24 11:26 Height 5 ft 10 in 5 ft 10 in 5 ft 10 in Weight: 203 lb 203 lb BMI 29.1 29.1 BP 107/68 118/82 H Blood Pressure Location Lt brachial Lt brachial Position Sitting Sitting Respiration 18 18 Pulse 63 59 L Pulse Source Monitor Monitor Temp 97.4 F L Temperature Source Temporal Artery Pulse Oximetry (%) 96 95 Oxygen Delivery Method room air Intake Visit Reasons: 6 M FU Stitch Cleaner Required: No Is patient in pain?: No Allergies erythromycin base Allergy (Intermediate, Verified 07/22/24 11:28) Nausea/Vom/Diarrhea niacin (From Niaspan Extended-Release) Allergy (Intermediate, Verified 07/22/24 11:28) Hives Penicillins Allergy (Verified 07/22/24 11:28) Unknown atorvastatin Adverse Reaction (Intermediate, Verified 07/22/24 11:28) myalgias cerivastatin (From Baycol) Adverse Reaction (Intermediate, Verified 07/22/24 11:28) leg cramps Medications ???Medication ???Instructions ???Recorded ???Confirmed ???Type esomeprazole magnesium 40 mg 40 mg PO DAILY Check with primary 07/16/17 07/22/24 History capsule,delayed release doctor multivitamin 1 tab PO DAILY Check with primary 07/16/22 07/22/24 History doctor tamsulosin 0.4 mg capsule 0.4 mg PO DAILY Check with primary 07/16/22 07/22/24 History doctor aspirin 81 mg tablet,delayed 81 mg PO BREAKFAST #30 tabs 08/19/22 07/22/24 Rx release diclofenac sodium 1 % topical gel 2 g topical ONCE PRN 01/09/23 07/22/24 History albuterol sulfate 90 mcg/actuation 2 puff inhalation Q6H PRN 06/15/23 07/22/24 History aerosol inhaler nitroglycerin 0.4 mg sublingual 0.4 mg sublingual Q5M PRN 07/05/23 07/22/24 Rx tablet Cardiac/Chest Pain #25 tabs rosuvastatin 20 mg tablet See Rx Instructions .Route 07/25/23 07/22/24 Rx .COMPLEX #90 tabs metoprolol succinate 25 mg 25 mg PO DAILY #90 tabs 08/01/23 07/22/24 Rx tablet,extended release 24 hr (Toprol XL) losartan 25 mg tablet 25 mg PO DAILY #90 tabs 10/23/23 07/22/24 Rx melatonin 10 mg capsule 10 mg PO HS PRN 12/18/23 07/22/24 History sildenafil 100 mg tablet (Viagra) 100 mg PO DAILY PRN sexual 12/18/23 07/22/24 Rx activity #10 tabs acetaminophen 500 mg capsule 500 mg PO DAILY 04/15/24 07/22/24 History loratadine 10 mg tablet 10 mg PO DAILY Allergies 04/15/24 07/22/24 History fluticasone 250 mcg-salmeterol 50 1 ea inhalation BID 07/15/24 07/22/24 History mcg/dose blistr powdr for inhalation Have you fallen in the past year?: No PFSH Medical History Hyperlipidemia Atherosclerotic heart disease of [place] coronary artery without angina pectoris Non-ST elevation NM (NSTEMI) Hemorrhoids Enthesopathy of hip region GERD (gastroesophageal reflux disease) Generalized anxiety disorder History of vitamin D deficiency Surgical History Stented coronary artery (07/18/22) History of foot surgery ( 07/2019) History of varicose vein stripping History of surgery on upper extremity History of hemorrhoidectomy History of open reduction and internal fixation (ORIF) procedure History of umbilical hernia repair History of tonsillectomy H/O arthroscopy of (more content not included)... Normal [facility] Comprehensive Metabolic Prof ilon 07-22-2024 Albumin [Mass/Vol] 3.5 g/dL Normal 3.2-5.0 [facility] Comment on above: Performed By: #### L 100.0100, L503.6620, L500.4100, L500.4050 #### [facility] [address] [place], [address] Albumin/Globulin [Mass ratio] 1.0 {ratio} Normal 0.9-2.4 [facility] Comment on above: Performed By: #### L 100.0100, L503.6620, L500.4100, L500.4050 #### [facility] [address] [place], [address] ALK P 71 U/L Normal 45-117 [facility] Comment on above: Performed By: #### L 100.0100, L503.6620, L500.4100, L500.4050 #### [facility] [address] [place], [address] ALT [Catalytic activity/Vol] 27 U/L Normal 16-61 [facility] Comment on above: Performed By: #### L 100.0100, L503.6620, L500.4100, L500.4050 #### [facility] [address] [place], [address] AST [Catalytic activity/Vol] 17 U/L Normal 15-37 [facility] Comment on above: Performed By: #### L 100.0100, L503.6620, L500.4100, L500.4050 #### [facility] [address], [address] Bilirubin [Mass/Vol] 0.50 mg/dL Normal 0.20-1.00 [facility] Comment on above: Result Comment: For patients on eltrombopag therapy, use of Dimension [place] TBIL is not recommended. Performed By: #### L 100.0100, L503.6620, L500.4100, L500.4050 #### [facility] [address] [place], [address] BUN/CRE 14.7 RATIO Normal 10-20 [facility] Comment on above: Performed By: #### L 100.0100, L503.6620, L500.4100, L500.4050 #### [facility] [address] [place], [address] CA,Total 9.3 mg/dL Normal 8.5-10.1 [facility] Comment on above: Performed By: #### L 100.0100, L503.6620, L500.4100, L500.4050 #### [facility] [address] [place], [address] Chloride [Moles/Vol] 108 mmol/L High 98-107 [facility] Comment on above: Performed By: #### L 100.0100, L503.6620, L500.4100, L500.4050 #### [facility] [address], [address] CO2 [Moles/Vol] 31.0 mmol/L Normal 21.0-32.0 [facility] Comment on above: Performed By: #### L 100.0100, L503.6620, L500.4100, L500.4050 #### [facility] [address] [place], [address] Creatinine [Mass/Vol] 0.95 mg/dL Normal 0.70-1.30 [facility] Comment on above: Result Comment: The validity of the calculated GFR GFRAA in patients over 70 years has not been determined. Clinical correlation is essential. Performed By: #### L 100.0100, L503.6620, L500.4100, L500.4050 #### [facility] [address] [place], [address] EST GFR - AA 101 mL/min Normal >60 [facility] Comment on above: Result Comment: Afri can [place] GFR Calc Performed By: #### L 100.0100, L503.6620, L500.4100, L500.4050 #### [facility] [address] [place], [address] GAP 3 Low 5-15 [facility] Comment on above: Performed By: #### L 100.0100, L503.6620, L500.4100, L500.4050 #### [facility] [address] [place], [address] GFR/1.73 sq M.predicted among non-blacks MDRD (S/P/Bld) [Vol rate/Area] 84 mL/min/{1.73_m2} Normal >60 [facility] Comment on above: Result Comment: Non- GFR Calc Performed By: #### L 100.0100, L503.6620, L500.4100, L500.4050 #### [facility] [address] [place], [address] Globulin (S) [Mass/Vol] 3.5 g/dL Normal 2.2-4.2 [facility] Comment on above: Performed By: #### L 100.0100, L503.6620, L500.4100, L500.4050 #### [facility] [address] [place], [address] Glucose [Mass/Vol] 84 mg/dL Normal 74-106 [facility] Comment on above: Performed By: #### L 100.0100, L503.6620, L500.4100, L500.4050 #### [facility] [address] [place], [address] Potassium [Moles/Vol] 4.4 mmol/L Normal 3.5-5.1 [facility] Comment on above: Performed By: #### L 100.0100, L503.6620, L500.4100, L500.4050 #### [facility] [address] [place] [place], [address] Sodium [Moles/Vol] 143 mmol/L Normal 136-145 [facility] Comment on above: Performed By: #### L 100.0100, L503.6620, L500.4100, L500.4050 #### [facility] [address] [place], [address] T PROT 7.0 g/dL Normal 6.4-8.2 [facility] Comment on above: Performed By: #### L 100.0100, L503.6620, L500.4100, L500.4050 #### [facility] [address] [place], [address] Urea nitrogen [Mass/Vol] 14 mg/dL Normal 7-18 [facility] Comment on above: Performed By: #### L 100.0100, L503.6620, L500.4100, L500.4050 #### [facility] [address] [place], [address] Lipid Profileon 07-22-2024 Cholesterol [Mass/Vol] 149 mg/dL Normal 200 [facility] Comment on above: Result Comment: <200 mg/dL Desirable 200-240 mg/dL Borderline >240 mg/dL High Risk Performed By: #### L 100.0100, L503.6620, L500.4100, L500.4050 ####[facility] [address] [place], [address] Cholesterol in HDL [Mass/Vol] 48 mg/dL Normal [facility] Comment on above: Result Comment: The drugs N-Acetylcysteine and Metamizole may falsely depress this assay. Reference Range HDL <40 mg/dL Low HDL Cholesterol HDL >or= 60 mg/dL High HDL Cholesterol Performed By: #### L 100.0100, L503.6620, L500.4100, L500.4050 ####[facility] [address] [place], [address] Cholesterol in LDL [Mass/Vol] 58 mg/dL Normal 0-130 [facility] Comment on above: Performed By: #### L 100.0100, L503.6620, L500.4100, L500.4050 ####[facility] [address] [place], [address] Cholesterol in VLDL [Mass/Vol] 43 mg/dL High 5-40 [facility] Comment on above: Performed By: #### L 100.0100, L503.6620, L500.4100, L500.4050 ####[facility] [address] [place], [address] Triglyceride [Mass/Vol] 215 mg/dL High [facility] Comment on above: Result Comment: The drugs N-Acetylcysteine and Metamizole may falsely depress this assay. Serum Triglycerides Reference Interval Normal <150 mg/dL Borderline high 150 - 199 mg/dL High 200 - 499 mg/dL Very High > or = 500 mg/dL Performed By: #### L 100.0100, L503.6620, L500.4100, L500.4050 ####[facility] [address] [place], [address] Pulmonary Visit Reporton Pulmonary Visit Report [facility] [address] [place] [address] OFFICE VISIT Date of Service: 07/15/24 MR#: [id number] Acct: [id number] Name: KETAN COTTON Rep #: [id number] : 1955 Provider: MARCE Austin Age/Sex: 68/M Location: [facility] Status: Signed Assessment and Plan Assessment and Plan (1) NOE (obstructive sleep apnea): Status: Chronic Comment: AHI 59 events per hour Plan: Deteriorated. The patient does not like to be compliant with PAP therapy. Once again, I discussed the risks of suboptimal management of his sleep apnea. The patient reports that he has all of those things, when I listed risk for heart attack, stroke, irregular heart rhythm, high blood pressure, high blood sugar, causing her worsening depression, difficulty losing weight, and invent impotence. The patient does seem to be concerned about whether or not compliance with PAP therapy would resolve impotence. He is agreeable to being compliant nightly for the next 3 months. He will return to the office at which time we will evaluate his symptoms and the compliance report. The most recent compliance report indicates that his number of events is well-controlled on current settings if he is compliant with therapy. Once again, I did mention that he would be appropriate for the inspire device if he is not able to be compliant with PAP therapy. The patient reports that he does not really want to have surgery. No indication for a titration study at this time. (2) Overweight: Status: Chronic Plan: Improved, the patient has lost a few pounds. He is not technically overweight and not obese. Continue to encourage healthy weight loss. (3) Cough: Status: Chronic Qualifiers: Cough type: chronic Qualified Code(s): R05.3 - Chronic cough Plan: Unclear if this is a chronic cough. Several etiologies at play here, the patient is known to have reflux and postnasal drip. I did discuss with the patient that it is possible that his cough is better control because it is now winter and there are seasonal allergies that are no longer concerning. He conveys understanding. I have asked him to continue the medications ordered by his primary care doctor. We would like to see him again in the office in 3 months, at which time spring will be here. If seasonal allergies are at play, cough might be more prevalent. This can be evaluated and discussed at his next office visit. HPI HPI Comments Details: This patient presents to the office today for follow-up of his obstructive sleep apnea. He is ambulatory, currently on room air. He has not recently been seen in the ED or urgent care. He has not required any antibiotics or prednisone for any breathing problems. The patient reports that he had been worked up for a chronic cough by his primary care doctor. Pulmonary testing had been ordered. I was able to review test results on his [employer] portal. It appears as though there was mild COPD, without reversibility post bronchodilation. The patient was started on an inhaler, which he believes was Trelegy. He pointed out it on the picture chart taking in the office. He was also switched from Prilosec to pantoprazole for possible suboptimal control of his GERD. The patient does report that the cough is dry and less frequent. He only has shortness of breath on exertion. If you recall, this patient was previously very active and participated in running several days per week. He continues to experience postnasal drip, currently being managed by ENT. He has occasional wheezing but denies any chest tightness, chest pain or palpitations. He also denies any fever, chills or body aches. He does not like PAP therapy. He admits that he has gotten into bad habit of going to the basement to watch TV. He falls asleep on the couch and does not go upstairs to put his PAP device on. He reports that he does not snore when wearing his PAP device. He is napping daily and is not using his PAP device for napping. He does occasionally have dry mouth. He would like to discuss alternatives. Compliance report for the past 30 days shows 30 % compliance and average use of 4 hours per night. Current setting is CPAP 9-20 cmH2O with residual AHI 2.6 events per hour. Pressures are typically being utilized at 10.1 to 12.3 cm of water. Leaks do not appear to be problematic. Intake Vital Signs 04/15/24 07:56 07/15/24 07:34 Height 5 ft 10 in 5 ft 10 in Weight: 207 lb 203 lb BMI 29.7 29.1 BP 113/76 107/68 Blood Pressure Location Lt brachial Lt brachial Position Sitting Sitting Respiration 20 H 18 Pulse 67 63 Pulse Source Monitor Monitor Temp 97.3 F L 97.4 F L Temperature Source Temporal Artery Temporal Artery Pulse Oximetry (%) 96 96 Oxygen Delivery Method room air room air Inta (more content not included)... Normal [facility] 06-26-2024 [facility] Telephone (FAMPWS) -- KETAN COTTON ([id number]) 1955 M Date Time Provider Department 06/26/24 BLAKE WILCOX [facility] During your visit today, we recorded the following information about you: Blake Wilcox MD 06/26/2024 12:05 PM Signed Does show what could be mild asthma. Could consider a maintenance inhaler to use for a few weeks to see if it helps cough. Would have to take regularly and rinse his mouth out after using. Ayah Shay LPN 06/26/2024 1:13 PM Signed Phoned patient and went over results, notes from Dr Wilcox with understanding. His [facility] has some albuterol HFA inhalers that he could use to save some money, if that is what Dr wants him to use. He uses [facility] for his pharmacy. Blake Wilcox MD 06/26/2024 1:37 PM Signed He did not respond to albuterol. This would be something like advair. Pato Brewster LPN 06/26/2024 1:56 PM Signed Patient agreeable states to send in to [facility]. Allergies As of Date: 06/26/2024 Noted Allergy Reaction BAYCOL 07/05/2023 5 - Intolerance Comments: Leg cramps ERYTHROMYCIN 08/30/2005 5 - Intolerance Comments: GI upset LIPITOR (ATORVASTATIN CALCIUM) 08/30/2005 5 - Intolerance Comments: leg pain,weakness NIASPAN (NIACIN) 10/04/2010 4 - Hives PENICILLINS 08/30/2005 4 - Hives Comments: hives SEASONAL ALLERGIES 07/05/2023 14 - Other: See Comments Comments: Cockroaches, trees, weeds Date Reviewed: 06/25/2024 Reviewed by: Nehal Hardy RPFT - Fully Assessed Reason for Visit: Results [95] spirometery [Other] Primary Visit Diagnosis:Mild intermittent asthma, uncomplicated [J45.20] Order(s):fluticasone-salme terol (ADVAIR DISKUS) 250-50 mcg/dose inhalerInhale 1 Puff as instructed two times a day. Rinse and gargle mouth after use with water.Disp: 1 EachRfl: 0 Prescriptions as of 06/26/2024 - fluticasone-salmeterol (ADVAIR DISKUS) 250-50 mcg/dose inhaler Inhale 1 Puff as instructed two times a day. Rinse and gargle mouth after use with water. - famotidine (PEPCID) 20 mg tablet Take 20 mg by mouth daily at bedtime. - nitroglycerin sublingual (NITROQUICK) 0.4 mg SL tablet Dissolve 1 tablet under the tongue every 5 minutes as needed for chest pain. - tamsulosin (FLOMAX) 0.4 mg Take 1 capsule by mouth daily at bedtime. - benzonatate (TESSALON PERLES) 100 mg capsule Take 2 capsules by mouth three times a day as needed for cough. - esomeprazole (NEXIUM) 40 mg capsule Take 1 capsule by mouth once daily. - oxyCODONE IR (ROXICODONE) 5 mg immediate release tablet - melatonin 10 mg tab Take 10 mg by mouth daily at bedtime. - clopidogrel (PLAVIX) 75 mg tablet Take 75 mg by mouth once daily. - losartan (COZAAR) 25 mg tablet Take 25 mg by mouth once daily. - aspirin, enteric coated (ASPIRIN, ENTERIC COATED) 81 mg EC tablet Take 81 mg by mouth daily with breakfast. - metoprolol succinate ER (TOPROL XL) 25 mg 24 hr tablet Take 25 mg by mouth once daily. - diclofenac (VOLTAREN) 1 % topical gel Apply 2 g to affected area twice daily as needed. - rosuvastatin (CRESTOR) 20 mg tablet Take 1 tablet by mouth daily at bedtime. - COMPOUNDED PRESCRIPTION CMC Push Brace to be used daily as directed. - Compression Knee Highs KNEE HIGH COMPRESSION STOCKINGS 20-30 MM. DX: EDEMA, varicose veins - zrjgnnmz-ztg-HU-lycopen-leonides tein (CENTRUM SILVER MEN) 300-600-300 mcg tab Take 1 tablet by mouth once daily. Problem List As Of Date 06/26/2024 Noted Resolved FX RADIUS HEAD-CLOSED [S52.123A] 09/22/2003 ACUTE GASTRITIS W/O HEMORRHAGE [K29.00] ENTHESOPATHY OF HIP [M76.899] ESOPHAGEAL REFLUX [K21.9] Hyperlipidemia [E78.5] Screening for colon cancer [Z12.11] 11/05/2010 09/19/2022 Benign neoplasm of rectum and anal canal [D12.8*11/05/2010 Internal hemorrhoids without mention of complic*11/05/2010 Generalized anxiety disorder [F41.1] 10/09/2015 Other social stressor [Z65.9] 10/09/2015 09/19/2022 Dizziness [R42] 10/19/2015 09/19/2022 Bilateral carotid artery stenosis [I65.23] 10/28/2015 Stress and adjustment reaction [F43.29] 03/03/2016 Hypogonadism in male [E29.1] Left foot drop [M21.372] 03/21/2018 Neck pain [M54.2] 03/21/2018 09/19/2022 Gastroesophageal reflux disease with esophagiti*12/10/2020 06/17/2024 NOE (obstructive sleep apnea) [G47.33] 09/19/2022 Coronary artery disease involving timbi-sha shoshone heart *03/20/2023 Prescriptions ordered this encounter Disp Refills Start End FLUTICASONE 250 MCG-SALMETEROL 50 MC* 1 Ea* 0 06/26/2024 Route: INHALATION Sig: Inhale 1 Puff as instructed two times a day. Rinse and gargle mouth after use with water. Encounter Status:Closed by BLAKE WILCOX on 06/26/24 [facility] 06-17-2024 CNOV Office Visit (FAMPWS ) -- KETAN COTTON ([id number]) 1955 M Date Time Provider Department 06/17/24 10:40 AM BLAKE WILCOX During your visit today, we recorded the following information about you: Pulse Blood pressure Weight 59/minute 128/82 92.4 kg Blake Wilcox MD 06/17/2024 11:09 AM Signed Patient presents with: 6 Month Exam Left Knee Pain HPI: Patient presents today for office visit for follow up. GERD: Taking famotidine at night and Nexium in the morning. Believes that his famotidine is interacting with his statin? Also is not taking Nexium in the morning alone. Is taking with all his other medications after bowl of cereal and milk. Doesn't have complaint of GERD. His concern is runny nose and cough when eating. Discussed that the pepcid is safe to take with his meds. Cough: Has seen UC x 2. Still with cough that is productive. Using dayquil and nyquil still for this. Has tessalon that he can use. Chest x-ray has been done on 04/30/24 and 06/10/24. Tested at home for COVID and was negative. Chronic cough has been there for several months. Has persistent drainage. Has tried flonase. Patient complains of: left knee pain. Duration: has been for quite awhile Location:inner part of left knee Stops him from running. Sometimes is painful to go up and down stairs. Has had previous surgery. Not giving out . No swelling. Still seeing cardiology. No chest pain or shortness of breath. MEDICATIONS: Current Outpatient Medications Medication Sig benzonatate (TESSALON PERLES) 100 mg capsule Take 2 capsules by mouth three times a day as needed for cough. tamsulosin (FLOMAX) 0.4 mg Take 1 capsule by mouth daily at bedtime. (Patient taking differently: Take 0.4 mg by mouth daily at bedtime. ran out) esomeprazole (NEXIUM) 40 mg capsule Take 1 capsule by mouth once daily. oxyCODONE IR (ROXICODONE) 5 mg immediate release tablet (Patient not taking: Reported on 06/03/2024) melatonin 10 mg tab Take 10 mg by mouth daily at bedtime. (Patient not taking: Reported on 06/03/2024) clopidogrel (PLAVIX) 75 mg tablet Take 75 [...] 1 tablet by mouth daily at bedtime. COMPOUNDED PRESCRIPTION CMC Push Brace to be used daily as directed. Compression Knee Highs KNEE HIGH COMPRESSION STOCKINGS 20-30 MM. DX: EDEMA, varicose veins yfrtnkgg-igr-DY-lycopen-leonides tein (CENTRUM SILVER MEN) 300-600-300 mcg tab Take 1 tablet by mouth once daily. No current facility-administered medications for this visit. ALLERGIES: ALLERGIES Allergen Reactions Baycol Intolerance Leg cramps Erythromycin Intolerance GI upset Lipitor [Atorvastat* Intolerance leg pain,weakness Niaspan [Niacin] Hives Penicillins Hives hives Seasonal Allergies Other: See Comments Cockroaches, trees, weeds PAST MEDICAL HISTORY Diagnosis Date Arthritis Benign [...] HX FRACTURE SURGERY HEMORRHOID SURGERY HX 2017 [place] HERNIA REPAIR HX PAST SURGICAL HISTORY OF 06/2002 left wrist and left elbow PAST SURGICAL HISTORY OF 05/2009 Varicose vein stripping PAST SURGICAL HISTORY OF 02/22/2019 left foot fracture/dislocation repair. Dr. Kirk PAST SURGICAL HISTORY OF Left 07/2019 Removal of screw from left ankle with (more content not included)... Normal [facility] XR KNEE 4V AP/PA BOTH+LAT/ME R LTon 06-17-2024 XR KNEE 4V AP/PA BOTH+LAT/DIANNA LT * * *Final Report* * * DATE OF EXAM: Jun 17 2024 12:00PM WOX [id number] - XR KNEE 4V AP/PA BOTH+LAT/DIANNA LT / PROCEDURE REASON: multiple diagnoses * * * * Physician Interpretation * * * * EXAMINATION: XR KNEE 4V AP/PA BOTH+LAT/DIANNA LT CLINICAL HISTORY: Chronic pain of left knee Technique: XR KNEE 4V AP/PA BOTH+LAT/DIANNA LT -- LEFT with 4 views on 4 images Comparison: X-ray left knee 03/20/2023 RESULT: No acute fracture or dislocation. Unchanged moderate medial compartment joint space narrowing with subchondral sclerosis and marginal osteophytes. 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[facility] Transcribe Date/Time: Jun 20 2024 4:14P Dictated by : JENNIFER BALLESETROS MD This examination was interpreted and the report reviewed and electronically signed by: JENNIFER BALLESTEROS MD on Jun 20 2024 4:15PM EST [id number] Normal [facility] CNOVon 06-10-2024 CNOV Office Visit (FAMPWS ) -- KETAN COTTON ([id number]) 1955 M Date Time Provider Department 06/10/24 3:40 PM CHARLIE TIPTON During your visit today, we recorded the following information about you: Pulse Respiration Blood pressure Weight 80/minute 16/minute 119/75 91.6 kg Charlie Tipton 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 Patient presents for cough and congestion x2 weeks. Patient reports intermittent chills, fatigue, SOB with exertion. Seen 06/03 in EC and LS were normal, assumed viral illness. Past medical history, appointments, medications, allergies reviewed. [...] SURGERY HX FRACTURE SURGERY HEMORRHOID SURGERY HX [id number] [place] HERNIA REPAIR HX PAST SURGICAL HISTORY [...] BIOPSY HX TONSILLECTOMY HX TONSILLECTOMY PRIMARY/SECONDARY Tonsillectomy Family History FAMILY HISTORY Problem Relation Age of Onset Alzheimer's Disease Father Coronary Artery Disease Mother Heart Mother other (stomach problems) Mother open heart surgery,ashd,diabetes Cataract Maternal Grandfather Cataract Paternal Grandmother Cataract Paternal Grandfather other (obese) Sister Patient Allergies ALLERGIES Allergen Reactions Baycol Intolerance Leg cramps Erythromycin Intolerance GI upset Lipitor [Atorvastat* Intolerance leg pain,weakness Niaspan [Niacin] Hives Penicillins Hives hives Seasonal Allergies Other: See Comments Cockroaches, trees, weeds Current Medications Current Outpatient Medications on File Prior to Visit Medication Sig tamsulosin (FLOMAX) 0.4 mg Take 1 capsule by mouth daily at bedtime. (Patient taking differently: Take 0.4 mg by mouth daily at bedtime. ran out) esomeprazole (NEXIUM) 40 mg capsule Take 1 capsule by mouth once daily. oxyCODONE IR (ROXICODONE) 5 mg immediate release tablet (Patient not taking: Reported on 06/03/2024) melatonin 10 mg tab Take 10 mg by mouth daily at bedtime. (Patient not taking: Reported on 06/03/2024) clopidogrel (PLAVIX) 75 mg tablet Take 75 [...] 1 tablet by mouth daily at bedtime. COMPOUNDED PRESCRIPTION CMC Push Brace to be used daily as directed. Compression Knee Highs KNEE HIGH COMPRESSION STOCKINGS 20-30 MM. DX: EDEMA, varicose veins ufotogbo-caa-PK-lycopen-leonides tein (CENTRUM SILVER MEN) 300-600-300 mcg tab Take 1 tablet by mouth once daily. No current facility-administered medications on file prior to visit. Social History Social History Tobacco Use Smoking status: Never Smokeless tobacco: Never Vaping Use Vaping status: Never Used Substance Use Topics Alcohol use: Yes Comment: kenji (more content not included)... Normal [facility]ET[facility] ([id number]) 1955 M Date Time Provider Department 06/10/24 CHARLIE TIPTON [facility] During your visit today, we recorded the following information about you: Charlie Tipton APRN.[facility] 06/10/2024 4:25 PM Signed Please let patient know his CXR is normal however due to his worsening symptoms and his known exposure to mycoplasma PNA I will treat him with dual antibiotic therapy. Ajit Aguilera MA 06/10/2024 4:34 PM Signed Pt notified and verbalized understanding Ajit Aguilera MA Allergies As of Date: 06/10/2024 Noted Allergy Reaction BAYCOL 07/05/2023 5 - Intolerance Comments: Leg cramps ERYTHROMYCIN 08/30/2005 5 - Intolerance Comments: GI upset LIPITOR (ATORVASTATIN CALCIUM) 08/30/2005 5 - Intolerance Comments: leg pain,weakness NIASPAN (NIACIN) 10/04/2010 4 - Hives PENICILLINS 08/30/2005 4 - Hives Comments: hives SEASONAL ALLERGIES 07/05/2023 14 - Other: See Comments Comments: Cockroaches, trees, weeds Date Reviewed: 06/10/2024 Reviewed by: Ajit Aguilera MA - Fully Assessed Reason for Visit: Results [95] Primary Visit Diagnosis:Community acquired pneumonia of left lung, unspecified part of lung [J18.9] Order(s):doxycycline monohydrate 100 mg tabletTake 1 tablet by mouth two times a day for 5 days.Disp: 10 tabletRfl: 0 cefUROXime (CEFTIN) 500 mg tabletTake 1 tablet by mouth two times a day for 5 days.Disp: 10 tabletRfl: 0 Prescriptions as of 06/10/2024 - benzonatate (TESSALON PERLES) 100 mg capsule Take 2 capsules by mouth three times a day as needed for cough. - doxycycline monohydrate 100 mg tablet Take 1 tablet by mouth two times a day for 5 days. - cefUROXime (CEFTIN) 500 mg tablet Take 1 tablet by mouth two times a day for 5 days. - tamsulosin (FLOMAX) 0.4 mg Take 1 capsule by mouth daily at bedtime. - esomeprazole (NEXIUM) 40 mg capsule Take 1 capsule by mouth once daily. - oxyCODONE IR (ROXICODONE) 5 mg immediate release tablet - melatonin 10 mg tab Take 10 mg by mouth daily at bedtime. - clopidogrel (PLAVIX) 75 mg tablet Take 75 mg by mouth once daily. - losartan (COZAAR) 25 mg tablet Take 25 mg by mouth once daily. - nitroglycerin sublingual (NITROQUICK) 0.4 mg SL tablet DISSOLVE 1 TABLET UNDER THE TONGUE NEEDED FOR CHEST PAIN- MAY REPEAT EVERY 5 MINUTES IF NEEDED ( MAX 3 DOSES.- IF NO RELIEF CALL 911) - aspirin, enteric coated (ASPIRIN, ENTERIC COATED) 81 mg EC tablet Take 81 mg by mouth daily with breakfast. - metoprolol succinate ER (TOPROL XL) 25 mg 24 hr tablet Take 25 mg by mouth once daily. - diclofenac (VOLTAREN) 1 % topical gel Apply 2 g to affected area twice daily as needed. - rosuvastatin (CRESTOR) 20 mg tablet Take 1 tablet by mouth daily at bedtime. - COMPOUNDED PRESCRIPTION CMC Push Brace to be used daily as directed. - Compression Knee Highs KNEE HIGH COMPRESSION STOCKINGS 20-30 MM. DX: EDEMA, varicose veins - kvcmmhgx-zbc-UR-lycopen-leonides tein (CENTRUM SILVER MEN) 300-600-300 mcg tab Take 1 tablet by mouth once daily. Problem List As Of Date 06/10/2024 Noted Resolved FX RADIUS HEAD-CLOSED [S52.123A] 09/22/2003 ACUTE GASTRITIS W/O HEMORRHAGE [K29.00] ENTHESOPATHY OF HIP [M76.899] ESOPHAGEAL REFLUX [K21.9] Hyperlipidemia [E78.5] Screening for colon cancer [Z12.11] 11/05/2010 09/19/2022 Benign neoplasm of rectum and anal canal [D12.8*11/05/2010 Internal hemorrhoids without mention of complic*11/05/2010 Generalized anxiety disorder [F41.1] 10/09/2015 Other social stressor [Z65.9] 10/09/2015 09/19/2022 Dizziness [R42] 10/19/2015 09/19/2022 Bilateral carotid artery stenosis [I65.23] 10/28/2015 Stress and adjustment reaction [F43.29] 03/03/2016 Hypogonadism in male [E29.1] Left foot drop [M21.372] 03/21/2018 Neck pain [M54.2] 03/21/2018 09/19/2022 Gastroesophageal reflux disease with esophagiti*12/10/2020 NOE (obstructive sleep apnea) [G47.33] 09/19/2022 Coronary artery disease involving timbi-sha shoshone heart *03/20/2023 Prescriptions ordered this encounter Disp Refills Start End DOXYCYCLINE MONOHYDRATE 100 MG TABLET 10 t* 0 06/10/2024 06/15/2024 Route: ORAL Sig: Take 1 tablet by mouth two times a day for 5 days. CEFUROXIME AXETIL 500 MG TABLET 10 t* 0 06/10/2024 06/15/2024 Route: ORAL Sig: Take 1 tablet by mouth two times a day for 5 days. Encounter Status:Closed by AJIT AGUILERA CMA [facility] KET[facility]OT[facility] ([id number]) 1955 M Date Time Provider Department 06/10/24 [facility] During your visit today, we recorded the following information about you: Mignon Munoz LPN 06/10/2024 1:50 PM Signed calling to let up know pt was seen in [facility] 06-03-24 . Pt not getting better and very concerned with cough, congestion, headache, sinus pressure, tested negative for COVID on 06/06/24 and 06/07/24. Pt has been around family dx with COVID, pneumonia and strep last week . Pt instructed to wear a mask in and verbalizes understanding and will have him wear this in. Denies: chest pain, SOB or fever. Pt's provider/team not available. Pt scheduled with provider. Mignon Munoz LPN Allergies As of Date: 06/10/2024 Noted Allergy Reaction BAYCOL 07/05/2023 5 - Intolerance Comments: Leg cramps ERYTHROMYCIN 08/30/2005 5 - Intolerance Comments: GI upset LIPITOR (ATORVASTATIN CALCIUM) 08/30/2005 5 - Intolerance Comments: leg pain,weakness NIASPAN (NIACIN) 10/04/2010 4 - Hives PENICILLINS 08/30/2005 4 - Hives Comments: hives SEASONAL ALLERGIES 07/05/2023 14 - Other: See Comments Comments: Cockroaches, trees, weeds Date Reviewed: 06/03/2024 Reviewed by: Terese Orourke MA - Fully Assessed Reason for Visit: Future Appointment [256] Prescriptions as of 06/10/2024 - tamsulosin (FLOMAX) 0.4 mg Take 1 capsule by mouth daily at bedtime. - esomeprazole (NEXIUM) 40 mg capsule Take 1 capsule by mouth once daily. - oxyCODONE IR (ROXICODONE) 5 mg immediate release tablet - melatonin 10 mg tab Take 10 mg by mouth daily at bedtime. - clopidogrel (PLAVIX) 75 mg tablet Take 75 mg by mouth once daily. - losartan (COZAAR) 25 mg tablet Take 25 mg by mouth once daily. - nitroglycerin sublingual (NITROQUICK) 0.4 mg SL tablet DISSOLVE 1 TABLET UNDER THE TONGUE NEEDED FOR CHEST PAIN- MAY REPEAT EVERY 5 MINUTES IF NEEDED ( MAX 3 DOSES.- IF NO RELIEF CALL 911) - aspirin, enteric coated (ASPIRIN, ENTERIC COATED) 81 mg EC tablet Take 81 mg by mouth daily with breakfast. - metoprolol succinate ER (TOPROL XL) 25 mg 24 hr tablet Take 25 mg by mouth once daily. - diclofenac (VOLTAREN) 1 % topical gel Apply 2 g to affected area twice daily as needed. - rosuvastatin (CRESTOR) 20 mg tablet Take 1 tablet by mouth daily at bedtime. - COMPOUNDED PRESCRIPTION CMC Push Brace to be used daily as directed. - Compression Knee Highs KNEE HIGH COMPRESSION STOCKINGS 20-30 MM. DX: EDEMA, varicose veins - fkvurnyx-ese-UQ-lycopen-leonides tein (CENTRUM SILVER MEN) 300-600-300 mcg tab Take 1 tablet by mouth once daily. Problem List As Of Date 06/10/2024 Noted Resolved FX RADIUS HEAD-CLOSED [S52.123A] 09/22/2003 ACUTE GASTRITIS W/O HEMORRHAGE [K29.00] ENTHESOPATHY OF HIP [M76.899] ESOPHAGEAL REFLUX [K21.9] Hyperlipidemia [E78.5] Screening for colon cancer [Z12.11] 11/05/2010 09/19/2022 Benign neoplasm of rectum and anal canal [D12.8*11/05/2010 Internal hemorrhoids without mention of complic*11/05/2010 Generalized anxiety disorder [F41.1] 10/09/2015 Other social stressor [Z65.9] 10/09/2015 09/19/2022 Dizziness [R42] 10/19/2015 09/19/2022 Bilateral carotid artery stenosis [I65.23] 10/28/2015 Stress and adjustment reaction [F43.29] 03/03/2016 Hypogonadism in male [E29.1] Left foot drop [M21.372] 03/21/2018 Neck pain [M54.2] 03/21/2018 09/19/2022 Gastroesophageal reflux disease with esophagiti*12/10/2020 NOE (obstructive sleep apnea) [G47.33] 09/19/2022 Coronary artery disease involving [place] heart *03/20/2023 Encounter Status:Closed by CHARLIE TIPTON on 06/10/24 Normal [facility] XR CHEST 2V FRONTAL/LATon XR CHEST 2V FRONTAL/LAT * * *Final Report* * * DATE OF EXAM: Jun 10 2024 4:05PM WOX [id number] - XR CHEST 2V FRONTAL/LAT / PROCEDURE REASON: URI with cough and congestion * * * * Physician Interpretation * * * * EXAMINATION: CHEST RADIOGRAPH (2 VIEW FRONTAL and LATERAL) CLINICAL HISTORY: URI with cough and congestion MQ: XC2_6 EXAM DATE/TIME: 06/10/2024 4:05 PM COMPARISON: Chest xray dated 04/30/2024 RESULT: Lines, tubes, and devices: None. Lungs and pleura: No consolidation. No lung mass. No pleural effusion. No pneumothorax. Cardiomediastinal silhouette: Normal cardiomediastinal silhouette. Bones and soft tissues: Degenerative changes are present within the thoracic spine. IMPRESSION: No acute radiographic abnormality. Metal Furniture Repairer: [facility] Transcribe Date/Time: Jun 10 2024 4:07P Dictated by : NANCY DELGADO MD This examination was interpreted and the report reviewed and electronically signed by: NANCY DELGADO MD on Jun 10 2024 4:07PM EST [id number] Normal [facility] XR Chest PA and Lateralon IMPRESSION: No acute radiographic abnormality. Metal Furniture Repairer: [facility] Transcribe Date/Time: Jun 10 2024 4:07P Dictated by : NANCY DELGADO MD This examination was interpreted and the report reviewed and electronically signed by: NANCY DELGADO MD on Jun 10 2024 4:07PM EST DIVISION OF RADIOLOGY * * *Final Report* * * DATE OF EXAM: Jun 10 2024 4:05PM WOX [id number] - XR CHEST 2V FRONTAL/LAT / PROCEDURE REASON: URI with cough and congestion * * * * Physician Interpretation * * * * EXAMINATION: CHEST RADIOGRAPH (2 VIEW FRONTAL & LATERAL) CLINICAL HISTORY: URI with cough and congestion MQ: XC2_6 EXAM DATE/TIME: 06/10/2024 4:05 PM COMPARISON: Chest xray dated 04/30/2024 RESULT: Lines, tubes, and devices: None. Lungs and pleura: No consolidation. No lung mass. No pleural effusion. No pneumothorax. Cardiomediastinal silhouette: Normal cardiomediastinal silhouette. Bones and soft tissues: Degenerative changes are present within the thoracic spine. DIVISION OF RADIOLOGY Provider, [facility] - 06/10/2024 * * *Final Report* * * DATE OF EXAM: Jun 10 2024 4:05PM WOX 5291 - XR CHEST 2V FRONTAL/LAT / PROCEDURE REASON: URI with cough and congestion * * * * Physician Interpretation * * * * EXAMINATION: CHEST RADIOGRAPH (2 VIEW FRONTAL & LATERAL) CLINICAL HISTORY: URI with cough and congestion MQ: XC2_6 EXAM DATE/TIME: 06/10/2024 4:05 PM COMPARISON: Chest xray dated 04/30/2024 RESULT: Lines, tubes, and devices: None. Lungs and pleura: No consolidation. No lung mass. No pleural effusion. No pneumothorax. Cardiomediastinal silhouette: Normal cardiomediastinal silhouette. Bones and soft tissues: Degenerative changes are present within the thoracic spine. IMPRESSION IMPRESSION: No acute radiographic abnormality. Metal Furniture Repairer: [facility] Transcribe Date/Time: Jun 10 2024 4:07P Dictated by : NANCY DELGADO MD This examination was interpreted and the report reviewed and electronically signed by: NANCY DELGADO MD on Jun 10 2024 4:07PM EST [facility] Radiology Study observation (narrative) [facility] XR Chest PA and LateralOrder ed By: [facility] Provider on 06-10-2024 [facility] CNOVon 06-03-2024 CNOV Office Visit (WSTR ) -- KETAN COTTON ([id number]) 1955 M Date Time Provider Department 06/03/24 2:15 PM TRAY NUÑEZ [facility] During your visit today, we recorded the following information about you: Temperature Pulse Respiration Blood pressure 97.8 degrees 60/minute 16/minute 122/72 Weight 93.3 kg Tray Nuñez MD 06/03/2024 2:53 PM Signed Patient presents with: Chest Congestion: cough, nasal drainage seen a few weeks ago, pneumonia exposure HPI: Reports chronic symptoms may be worse the last 4-5 days. Grandchildren have had pneumonia and his would like him rechecked. Positive symptoms: Cough, Chest congestion, Sinus pressure, Nasal Congestion, Rhinorrhea, Post nasal drainage, reflux, Negative symptoms: Nausea, Vomiting, Diarrhea, Fever, Chills, change in Body Aches, Malaise, OTC: nexium, pepcid, daily antihistamine; shower helps the most Drainage and symptoms are exacerbated by overeating. MEDICATIONS: Current Outpatient Medications Medication Sig tamsulosin (FLOMAX) 0.4 mg Take 1 capsule by mouth daily at bedtime. (Patient taking differently: Take 0.4 mg by mouth daily at bedtime. ran out) esomeprazole (NEXIUM) 40 mg capsule Take 1 capsule by mouth once daily. clopidogrel (PLAVIX) 75 mg tablet Take 75 [...] 1 tablet by mouth daily at bedtime. COMPOUNDED PRESCRIPTION CMC Push Brace to be used daily as directed. Compression Knee Highs KNEE HIGH COMPRESSION STOCKINGS 20-30 MM. DX: EDEMA, varicose veins lncmebzy-ipz-ZN-lycopen-leonides tein (CENTRUM SILVER MEN) 300-600-300 mcg tab Take 1 tablet by mouth once daily. oxyCODONE IR (ROXICODONE) 5 mg immediate release tablet (Patient not taking: Reported on 06/03/2024) melatonin 10 mg tab Take 10 mg by mouth daily at bedtime. (Patient not taking: Reported on 06/03/2024) No current facility-administered medications for this visit. ALLERGIES: ALLERGIES Allergen Reactions Baycol Intolerance Leg cramps Erythromycin Intolerance GI upset Lipitor [Atorvastat* Intolerance leg pain,weakness Niaspan [Niacin] Hives Penicillins Hives hives Seasonal Allergies Other: See Comments Cockroaches, trees, weeds VITALS: BP 122/72 Pulse 60 Temp 36.6 ?C (97.8 ?F) Resp 16 Wt 93.3 kg (205 lb 11 oz) SpO2 97% BMI 29.51 kg/m? PHYSICAL EXAM: GEN: Pleasant, in no acute distress. HEENT: PERRL, EOMI, conjunctiva clear Ears: canals clear. TMs without erythema, bulge, or effusion Sinuses: non-tender frontal sinus, non-tender maxillary sinuses Throat: moist mucous membranes, no erythema, no exudate Neck: supple, no thyromegaly, no lymphadenopathy HEART: regular rate and rhythm, no murmurs LUNGS: clear to auscultation, no wheezes or crackles, no increased WOB ASSESSMENT/PLAN: 1. Nasal congestion - ICD9: 478.19, ICD10: R09.81 (primary diagnosis) 2. Chronic cough - ICD9: 786.2, ICD10: R05.3 Benign exam and vitals today without signs of pneumonia. We discussed possibly adding a nasal steroid spray like flonase. He will keep his appointment with PCP in a couple weeks and discuss ENT consult. Tray Nuñez MD Allergies As of Date: 06/03/2024 Noted Allergy Reaction BAYCOL 07/05/2023 5 - Intolerance Comments: Leg cramps ERYTHROMYCIN 08/30/2005 5 - Intolerance Comments: GI upset LIPITOR (ATORVASTATIN CALCIUM) 08/30/2005 5 - Intolerance Comments: leg pain,weakness NIASPAN (NIACIN) 10/04/2010 4 - Hives PENICILLINS 08/30/2005 4 - Hives Comments: hives SEASONAL ALLERGIES 07/05/2023 14 - Other: See Comments Comments: Cockroaches, trees, weeds Date Reviewed: 06/03/2024 Reviewed by: Terese Orourke MA - Fully Assessed Reason for Visit: Chest Congestion [236] Cmt: cough, nasal drainage seen a few weeks ago, pneumonia exposure Primary Visit Diagnosis:Nasal congestion [R09.81] Other Visit Diagnosis:Chronic cough [R05.3] Prescriptions as of 06/03/2024 - tamsulosin (FLOMAX) 0.4 mg Take 1 capsule by mouth daily at bedtime. - esomeprazole (NEXIUM) 40 mg capsule Take 1 capsule by mouth once daily. - oxyCODONE IR (ROXICODONE) 5 mg immediate release tablet - melatonin 10 mg tab Take 10 mg by mouth daily at bedtime. - clopidogrel (PLAVIX) 75 mg tablet Take 75 mg by mouth once daily. - losartan (COZAAR) 25 mg tablet (more content not included)... [facility]ET[facility] ([id number]) 1955 M Date Time Provider Department 05/01/24 CHRISTINA HOLLY [facility] During your visit today, we recorded the following information about you: Christina Holly APRN.ADRIANNA 05/01/2024 7:24 AM Signed Please notify that covid/flu/rsv testing negative. Continue with plan of care as discussed during visit. Seema Elias LPN 05/01/2024 8:04 AM Signed Unable to reach patient and mailbox is full-try later.GEO Oden Brittany L, MA 05/01/2024 8:43 AM Signed Patient active MyChart. Patient notified via Tailwind message. Ajit Silva MA Allergies As of Date: 05/01/2024 Noted Allergy Reaction BAYCOL 07/05/2023 5 - Intolerance Comments: Leg cramps ERYTHROMYCIN 08/30/2005 5 - Intolerance Comments: GI upset LIPITOR (ATORVASTATIN CALCIUM) 08/30/2005 5 - Intolerance Comments: leg pain,weakness NIASPAN (NIACIN) 10/04/2010 4 - Hives PENICILLINS 08/30/2005 4 - Hives Comments: hives SEASONAL ALLERGIES 07/05/2023 14 - Other: See Comments Comments: Cockroaches, trees, weeds Date Reviewed: 04/30/2024 Reviewed by: Magdalene Simmons MA - Fully Assessed Reason for Visit: Results [95] Prescriptions as of 05/01/2024 - doxycycline (VIBRA-TABS) 100 mg tablet Take 1 tablet by mouth two times a day for 10 days. - tamsulosin (FLOMAX) 0.4 mg Take 1 capsule by mouth daily at bedtime. - esomeprazole (NEXIUM) 40 mg capsule Take 1 capsule by mouth once daily. - oxyCODONE IR (ROXICODONE) 5 mg immediate release tablet - melatonin 10 mg tab Take 10 mg by mouth daily at bedtime. - clopidogrel (PLAVIX) 75 mg tablet Take 75 mg by mouth once daily. - losartan (COZAAR) 25 mg tablet Take 25 mg by mouth once daily. - nitroglycerin sublingual (NITROQUICK) 0.4 mg SL tablet DISSOLVE 1 TABLET UNDER THE TONGUE NEEDED FOR CHEST PAIN- MAY REPEAT EVERY 5 MINUTES IF NEEDED ( MAX 3 DOSES.- IF NO RELIEF CALL 911) - aspirin, enteric coated (ASPIRIN, ENTERIC COATED) 81 mg EC tablet Take 81 mg by mouth daily with breakfast. - metoprolol succinate ER (TOPROL XL) 25 mg 24 hr tablet Take 25 mg by mouth once daily. - diclofenac (VOLTAREN) 1 % topical gel Apply 2 g to affected area twice daily as needed. - rosuvastatin (CRESTOR) 20 mg tablet Take 1 tablet by mouth daily at bedtime. - COMPOUNDED PRESCRIPTION CMC Push Brace to be used daily as directed. - Compression Knee Highs KNEE HIGH COMPRESSION STOCKINGS 20-30 MM. DX: EDEMA, varicose veins - dppyycss-nph-AV-lycopen-leonides tein (CENTRUM SILVER MEN) 300-600-300 mcg tab Take 1 tablet by mouth once daily. Problem List As Of Date 05/01/2024 Noted Resolved FX RADIUS HEAD-CLOSED [S52.123A] 09/22/2003 ACUTE GASTRITIS W/O HEMORRHAGE [K29.00] ENTHESOPATHY OF HIP [M76.899] ESOPHAGEAL REFLUX [K21.9] Hyperlipidemia [E78.5] Screening for colon cancer [Z12.11] 11/05/2010 09/19/2022 Benign neoplasm of rectum and anal canal [D12.8*11/05/2010 Internal hemorrhoids without mention of complic*11/05/2010 Generalized anxiety disorder [F41.1] 10/09/2015 Other social stressor [Z65.9] 10/09/2015 09/19/2022 Dizziness [R42] 10/19/2015 09/19/2022 Bilateral carotid artery stenosis [I65.23] 10/28/2015 Stress and adjustment reaction [F43.29] 03/03/2016 Hypogonadism in male [E29.1] Left foot drop [M21.372] 03/21/2018 Neck pain [M54.2] 03/21/2018 09/19/2022 Gastroesophageal reflux disease with esophagiti*12/10/2020 NOE (obstructive sleep apnea) [G47.33] 09/19/2022 Coronary artery disease involving [place] heart *03/20/2023 Encounter Status:Closed by AJIT SILVA on 05/01/24 [facility] CNOVon 04-30-2024 CNOV Office Visit (UCWSTR ) -- KETAN COTTON ([id number]) 1955 M Date Time Provider Department 04/30/24 5:15 PM CAROLYNE GILLIS [facility] During your visit today, we recorded the following information about you: Temperature Pulse Respiration Blood pressure 98.1 degrees 67/minute 20/minute 113/72 Weight 93.7 kg Carolyne Gillis APRN.CNP 04/30/2024 6:19 PM Signed This note was created using NoteWriter. Subjective Ketan Quirozslade is a 68 year old male. 68 year old male with PMH CAD, hyperlipidemia, NSTEMI, GERD, Acute onset 5 days ago +runny nose +nasal congestion +sinus pressure +post nasal drainage +cough +productive sputum +headache +body aches +fatigue Denies N/V/D Denies dyspnea Endorses that he has been unable to use his CPAP machine at night. The history is provided by the patient. No multi disciplined language analyst was used. URI He complains of cough. There is no chest tightness, difficulty breathing, frequent throat clearing, hemoptysis, hoarse voice, shortness of breath, sputum production or wheezing. This is a new problem. The current episode started in the past 7 days. The problem occurs constantly. The problem has been gradually worsening. Associated symptoms include malaise/fatigue, nasal congestion, postnasal drip, rhinorrhea, sneezing and a sore throat. Pertinent negatives include no appetite change, chest pain, dyspnea on exertion, ear congestion, ear pain, fever, headaches, heartburn, myalgias, orthopnea, PND, sweats, trouble swallowing or weight loss. He reports no improvement on treatment. There are no known risk factors for lung disease. There is no history of asthma, bronchiectasis, bronchitis, COPD, emphysema or pneumonia. PAST MEDICAL HISTORY Diagnosis Date Arthritis Benign [...] SURGERY HX FRACTURE SURGERY HEMORRHOID SURGERY HX [id number] HERNIA REPAIR HX PAST SURGICAL HISTORY [...] BIOPSY HX TONSILLECTOMY HX TONSILLECTOMY PRIMARY/SECONDARY Tonsillectomy ALLERGIES Baycol, Erythromycin, Lipitor [Atorvastatin Calcium], Niaspan [Niacin], Penicillins, and Seasonal Allergies MEDICATIONS doxycycline (VIBRA-TABS) 100 mg tablet Take 1 tablet by mouth two times a day for 10 days. tamsulosin (FLOMAX) 0.4 mg Take 1 capsule by mouth daily at bedtime. esomeprazole (NEXIUM) 40 mg capsule Take 1 capsule by mouth once daily. oxyCODONE IR (ROXICODONE) 5 mg immediate release tablet melatonin 10 mg tab Take 10 mg by mouth daily at bedtime. clopidogrel (PLAVIX) [...] 1 tablet by mouth daily at bedtime. COMPOUNDED PRESCRIPTION CMC Push Brace to be used daily as directed. Compression Knee Highs KNEE HIGH COMPRESSION STOCKINGS 20-30 MM. DX: EDEMA, varicose veins qhkwguer-wss-LV-lycopen-leonides tein (CENTRUM SILVER MEN) 300-600-300 mcg tab Take 1 tablet by mouth once daily. FAMILY HISTORY Problem Relation Age of Onset Al (more content not included)... Normal [facility] COVID AND INFLUENZA A/B AND RSV PCR, ROUTINEon 04-30-2024 SARS-CoV-2 (COVID-19) RNA TERRANCE+probe Ql (Unsp spec) SARS-COV-2 (AGENT OF COVID-19) RNA: Not detected INFLUENZA A RNA: Not detected INFLUENZA B RNA: Not detected RESPIRATORY SYNCYTIAL VIRUS (RSV) RNA: Not detected Normal [facility] Comment on above: Performed By: #### C VFLRS #### [facility] CLIA [id number] [address] [place] [address] [place] XR CHEST 2V FRONTAL/LATon XR CHEST 2V FRONTAL/LAT * * *Final Report* * * DATE OF EXAM: Apr 30 2024 5:57PM WOX [id number] - XR CHEST 2V FRONTAL/LAT / PROCEDURE REASON: multiple diagnoses * * * * Physician Interpretation * * * * EXAMINATION: CHEST RADIOGRAPH (2 VIEW FRONTAL and LATERAL) CLINICAL HISTORY: URI, acute Acute cough MQ: XC2_6 EXAM DATE/TIME: 04/30/2024 5:57 PM COMPARISON: Chest x-ray 08/06/2021 RESULT: Lines, tubes, and devices: None. Lungs and pleura: No consolidation. No lung mass. No pleural effusion. No pneumothorax. Cardiomediastinal silhouette: Normal cardiomediastinal silhouette. Bones and soft tissues: Unremarkable. IMPRESSION: No acute radiographic abnormality. Metal Furniture Repairer: [facility] Transcribe Date/Time: Apr 30 2024 6:00P Dictated by : JENNIFER BALLESTEROS MD This examination was interpreted and the report reviewed and electronically signed by: JENNIFER BALLESTEROS MD on Apr 30 2024 6:01PM EST [id number] Normal [facility] XR Chest PA and Lateralon IMPRESSION: No acute radiographic abnormality. Metal Furniture Repairer: [facility] Transcribe Date/Time: Apr 30 2024 6:00P Dictated by : JENNIFER BALLESTEROS MD This examination was interpreted and the report reviewed and electronically signed by: JENNIFER BALLESTEROS MD on Apr 30 2024 6:01PM EST DIVISION OF RADIOLOGY * * *Final Report* * * DATE OF EXAM: Apr 30 2024 5:57PM WOX 5291 - XR CHEST 2V FRONTAL/LAT / PROCEDURE REASON: multiple diagnoses * * * * Physician Interpretation * * * * EXAMINATION: CHEST RADIOGRAPH (2 VIEW FRONTAL & LATERAL) CLINICAL HISTORY: URI, acute Acute cough MQ: XC2_6 EXAM DATE/TIME: 04/30/2024 5:57 PM COMPARISON: Chest x-ray 08/06/2021 RESULT: Lines, tubes, and devices: None. Lungs and pleura: No consolidation. No lung mass. No pleural effusion. No pneumothorax. Cardiomediastinal silhouette: Normal cardiomediastinal silhouette. Bones and soft tissues: Unremarkable. DIVISION OF RADIOLOGY Provider, Esmer Raymundo [facility] - 04/30/2024 * * *Final Report* * * DATE OF EXAM: Apr 30 2024 5:57PM WOX 5291 - XR CHEST 2V FRONTAL/LAT / PROCEDURE REASON: multiple diagnoses * * * * Physician Interpretation * * * * EXAMINATION: CHEST RADIOGRAPH (2 VIEW FRONTAL & LATERAL) CLINICAL HISTORY: URI, acute Acute cough MQ: XC2_6 EXAM DATE/TIME: 04/30/2024 5:57 PM COMPARISON: Chest x-ray 08/06/2021 RESULT: Lines, tubes, and devices: None. Lungs and pleura: No consolidation. No lung mass. No pleural effusion. No pneumothorax. Cardiomediastinal silhouette: Normal cardiomediastinal silhouette. Bones and soft tissues: Unremarkable. IMPRESSION IMPRESSION: No acute radiographic abnormality. Metal Furniture Repairer: [facility] Transcribe Date/Time: Apr 30 2024 6:00P Dictated by : JENNIFER BALLESTEROS MD This examination was interpreted and the report reviewed and electronically signed by: JENNIFER BALLESTEROS MD on Apr 30 2024 6:01PM EST [facility] Study observation (narrative) [facility] XR Chest PA and LateralOrder ed By: Cc Provider on 04-30-2024 [facility] Orthopedic Visit Reporton Orthopedic Visit Report [facility] [address] [place] [address] [address] [place] [address] OFFICE VISIT Date of Service: 04/22/24 MR#: [id number] Acct: [id number] Name: KETAN COTTON Rep #: [id number] : 1955 Provider: Dr. Ruy munguia DO Age/Sex: 68/M Location: [facility] Status: Signed Intake Vital Signs 04/15/24 07:56 Height 5 ft 10 in Weight: 207 lb BMI 29.7 BP 113/76 Blood Pressure Location Lt brachial Position Sitting Respiration 20 H Pulse 67 Pulse Source Monitor Temp 97.3 F L Pulse Oximetry (%) 96 Oxygen Delivery Method room air Intake Visit Reasons: RIGHT SHOULDER Accompanied by: Self Is patient in pain?: No Allergies erythromycin base Allergy (Intermediate, Verified 04/22/24 14:06) Nausea/Vom/Diarrhea niacin (From Niaspan Extended-Release) Allergy (Intermediate, Verified 04/22/24 14:06) Hives Penicillins Allergy (Verified 04/22/24 14:06) Unknown atorvastatin Adverse Reaction (Intermediate, Verified 04/22/24 14:06) myalgias cerivastatin (From Baycol) Adverse Reaction (Intermediate, Verified 04/22/24 14:06) leg cramps Medications ???Medication ???Instructions ???Recorded ???Confirmed ???Type esomeprazole magnesium 40 mg 40 mg PO DAILY Check with primary 07/16/17 04/22/24 History capsule,delayed release doctor multivitamin 1 tab PO DAILY Check with primary 07/16/22 04/22/24 History doctor tamsulosin 0.4 mg capsule 0.4 mg PO DAILY Check with primary 07/16/22 04/22/24 History doctor aspirin 81 mg tablet,delayed 81 mg PO BREAKFAST #30 tabs 08/19/22 04/22/24 Rx release diclofenac sodium 1 % topical gel 2 g topical ONCE PRN 01/09/23 04/22/24 History famotidine 20 mg tablet 20 mg PO DAILY 01/09/23 04/22/24 History triamcinolone acetonide 0.1 % 1 applic topical DAILY 01/09/23 04/22/24 History topical cream albuterol sulfate 90 mcg/actuation 2 puff inhalation Q6H PRN 06/15/23 04/22/24 History aerosol inhaler nitroglycerin 0.4 mg sublingual 0.4 mg sublingual Q5M PRN 07/05/23 04/22/24 Rx tablet Cardiac/Chest Pain #25 tabs rosuvastatin 20 mg tablet See Rx Instructions .Route 07/25/23 04/22/24 Rx .COMPLEX #90 tabs metoprolol succinate 25 mg 25 mg PO DAILY #90 tabs 08/01/23 04/22/24 Rx tablet,extended release 24 hr (Toprol XL) clopidogrel 75 mg tablet See Rx Instructions .Route 08/25/23 04/22/24 Rx .COMPLEX #90 tabs losartan 25 mg tablet 25 mg PO DAILY #90 tabs 10/23/23 04/22/24 Rx melatonin 10 mg capsule 10 mg PO HS PRN 12/18/23 04/22/24 History sildenafil 100 mg tablet (Viagra) 100 mg PO DAILY PRN sexual 12/18/23 04/22/24 Rx activity #10 tabs acetaminophen 500 mg capsule 500 mg PO DAILY 04/15/24 04/22/24 History loratadine 10 mg tablet 10 mg PO DAILY Allergies 04/15/24 04/22/24 History Have you fallen in the past year?: No PFSH Medical History (Reviewed 04/15/24 @ 11:07 by Janine Austin CAR RENTAL SALES ASSISTANT, CAR RENTAL SALES ASSISTANT-C) Hyperlipidemia Atherosclerotic heart disease of [place] coronary artery without angina pectoris Non-ST elevation NM (NSTEMI) Hemorrhoids Enthesopathy of hip region GERD (gastroesophageal reflux disease) Generalized anxiety disorder History of vitamin D deficiency Surgical History Stented coronary artery (07/18/22) History of foot surgery ( 07/2019) History of varicose vein stripping History of surgery on upper extremity History of hemorrhoidectomy History of open reduction and internal fixation (ORIF) procedure History of umbilical hernia repair History of tonsillectomy H/O arthroscopy of knee S/P excision of neuroma Family History (Reviewed 04/15/24 @ 11:07 by Janine Austin CAR RENTAL SALES ASSISTANT, CAR RENTAL SALES ASSISTANT-C) Father Alzheimer's disease Mother CAD (coronary artery disease) Diabetes Heart disease open heart surgery History of motor vehicle accident Social History Smoking Status: Never smoker alcohol intake: current alcohol intake frequency: a few times a month substance use type: does not use caffeine: Yes Type: coffee Number of servings: 1 HPI RIGHT SHOULDER Details: This documentation accurately reflects the service provided and the decisions made by me, Dr. Ruy Guzman, DO 04/22/24 0811. Part of today???s visit was documented by Val LUTHER, acting as scribe. KETAN COTTON is a 68 year old M here today for MRI follow-up right shoulder and thoracic spine 04/22/2024: He is here today to review his MRI's of his right shoulder and thoracic spine. Patient denies having any pain today. 03/13/2024 visit: Patient is here today for both shoulders and his upper back. He states that the left shoulder started bothering him about a month ago but no known injury. He is unable to raise his ar (more content not included)... Normal [facility] Pulmonary Visit Reporton Pulmonary Visit Report [facility] [place] [address] [place] [address] OFFICE VISIT Date of Service: 04/15/24 MR#: [id number] Acct: [id number] Name: KETAN COTTON Rep #: [id number] : 1955 Provider: MARCE Austin Age/Sex: 68/M Location: [facility].PMW Status: Signed Assessment and Plan Assessment and Plan (1) NOE (obstructive sleep apnea): Status: Chronic Comment: AHI noted to be 59 events per hour Plan: The patient continues to struggle to be compliant with PAP therapy. He does not like it and often times falls asleep before putting it on. It is functioning when he wears it. However he is not quite wearing it enough to feel the full benefit from it. I have encouraged him to wear the device every single night for at least 4 hours for the next 90 days to truly evaluate for benefit. The patient has considered alternatives. He states that his keeps telling me to get the implanted device. He is referring to the inspire device. He is not necessarily motivated to have a surgical procedure, per his own words. However, he would consider an oral appliance. He was a bit discouraged, when he found out that he has to have a repeat sleep study to qualify for the oral appliance. He is going to give this some consideration. He will contact the office if he would like to pursue the repeat sleep study and referral to the dentist for the oral appliance, it is beneficial of the patient already is established with that particular dentist. In the meantime, he is going to continue with PAP therapy. I am going to ask if we can either change the prescription to AutoPap 5 to 15 cm of water or increased to CPAP of 10 cmH2O to try to reduce his elevated residual AHI. The patient is agreeable with this plan. He was provided with annual high-dose influenza vaccination today. (2) Overweight: Status: Chronic Plan: Continue to encourage healthy weight loss. Orders: Orders Influenza Immunization Today J44.9 - Chronic obstructive pulmonary disease, unspecified Plan Details Follow Up: 3 Months ([facility]) HPI 6 M FU Chief Complaint: Sleep apnea HPI Comments Details: This patient presents to the office today for follow-up of his obstructive sleep apnea. He is ambulatory, currently on room air. He has not recently been seen in the ED or urgent care. He has not required any antibiotics or prednisone for any breathing problems. He does have shortness of breath on exertion. Currently he denies any wheezing, chest tightness, chest pain or palpitations. He also denies any fever, chills or body aches. He continues to struggle to be compliant with PAP therapy. He reports that he does not snore when wearing his PAP device. The patient is using it most nights, however sometimes he falls asleep before putting it on.. He states that sometimes he is able to sleep up to 8 hours with it on. He is not requiring naps. He does occasionally have dry mouth. He would like to discuss alternatives. His is encouraging him to evaluate the inspire device. Compliance report for the past 30 days shows 70% compliance and average use of 4 hours and 45 minutes per night. Current setting is CPAP 9 cmH2O with residual AHI 10.5 events per hour. Leaks do not appear to be problematic. Intake Vital Signs 10/10/23 10:53 12/18/23 14:58 04/15/24 07:56 Height 5 ft 10 in 5 ft 10 in 5 ft 10 in Weight: 205 lb 207 lb BMI 29.4 29.7 BP 113/76 Blood Pressure Location Lt brachial Lt brachial Position Sitting Sitting Respiration 18 20 H Pulse 61 67 Pulse Source Monitor Monitor Temp 97.3 F L Temperature Source Temporal Artery Pulse Oximetry (%) 93 96 Oxygen Delivery Method room air Intake Visit Reasons: 6 M FU Stitch Cleaner Required: No DME Vendor: pap- [employer] Accompanied by: Self Is patient in pain?: No Allergies erythromycin base Allergy (Intermediate, Verified 12/18/23 14:58) Nausea/Vom/Diarrhea niacin (From Niaspan Extended-Release) Allergy (Intermediate, Verified 12/18/23 14:58) Hives Penicillins Allergy (Verified 12/18/23 14:58) Unknown atorvastatin Adverse Reaction (Intermediate, Verified 12/18/23 14:58) myalgias cerivastatin (From Baycol) Adverse Reaction (Intermediate, Verified 12/18/23 14:58) leg cramps Medications ???Medication ???Instructions ???Recorded ???Confirmed ???Type esomeprazole magnesium 40 mg 40 mg PO DAILY Check with primary 07/16/17 04/15/24 History capsule,delayed release doctor multivitamin 1 tab PO DAILY Check with primary 07/16/22 04/15/24 History doctor tamsulosin 0.4 mg capsule 0.4 mg PO DAILY Check with primary 07/16/22 04/15/24 History doctor aspirin 81 mg tablet,delayed 81 mg PO BREAKFAST #30 tabs 08/19/22 04/15/24 Rx release diclofenac sodium 1 % topical g (more content not included)... Normal [facility] Spine Thoracic (Routine)on 0 04-12-2024 Spine Thoracic (Routine) [facility] [address] [place] [id number] Spine Thoracic (Routine) MR#: [id number] Acct: [id number] Name: KETAN COTTON Rep #: [id number] : 1955 M 68 From: Umer Cabral MD PCP: Dr. Blake Wilcox MD Status: [facility] Study: Spine Thoracic (Routine) Date of Exam: Exam# [id number] Ordering Dr: Ruy Guzman DO [id number] STUDY: MRI THORACIC SPINE WITHOUT CONTRAST REASON FOR EXAM: Male, 68 years old. pain TECHNIQUE: Standardized fat and water weighted pulse sequences were obtained in the sagittal and axial planes. COMPARISON: None. FINDINGS: Normal kyphosis of the thoracic spine. There is no substantial scoliosis. There is mild chronic wedging of the superior endplate of T7 with degenerative endplate changes and Schmorl''s node deformity. There are also degenerative endplate changes of the superior endplates of T5, T3 and T2. The disc space heights are well-maintained although there is mild multilevel disc degeneration. . There is no focal disc protrusion. Normal central canal and intervertebral neural foramina at the corresponding levels. Normal visualized thoracic cord. Normal conus medullaris that terminates at the . The soft tissue structures are unremarkable. MRI/Spine Thoracic (Routine) IMPRESSION: Mild spondylosis. No acute fracture or other significant bone pathology. No significant disc disease, spinal stenosis or cord compression Electronically Signed: Umer Cabral MD at 16:15 EDT Reading Location ID and State: [address] [place] [address] Tel , Service support , CC: Dr. Ruy Guzman DO; Dr. Blake Wilcox MD Metal Furniture Repairer: Signed Normal [facility] Upper Ext Joint Only(Routine )on 04-12-2024 Upper Ext Joint Only(Routine) [facility] [address] [place] [address] Upper Ext Joint Only(Routine) MR#: [id number] Acct: [id number] Name: KETAN COTTON Rep #: [id number] : 1955 M 68 From: Claudio Valiente MD PCP: Dr. Blake Wilcox MD Status: REG [facility] Study: Upper Ext Joint Only(Routine) Date of Exam: 0 04/12/24 Exam# [id number] Ordering Dr: Ruy Guzman DO [id number] STUDY: MRI RIGHT SHOULDER REASON FOR EXAM: Male, 68 years old. Pain. TECHNIQUE: Standardized fat and water weighted pulse sequences were obtained in all 3 orthogonal planes. COMPARISON: Right shoulder radiographs dated 11/06/2023. FINDINGS: There is mild supraspinatus, infraspinatus, and subscapularis tendinosis without a full-thickness tear. Normal teres minor tendon. Normal supraspinatus muscle. Normal infraspinatus muscle. Normal subscapularis muscle. Normal teres minor muscle. Normal glenohumeral articulation. There is enthesopathic subcortical cyst formation of the greater tuberosity of the humeral head. Normal biceps labral complex. Normal intracapsular long biceps tendon. Normal labrum. Normal capsulo-ligamentous complex. Normal rotator interval. There is mild hypertrophic acromioclavicular arthrosis. There is a Type II morphology (curved), with a neutral orientation. There is no subacromial-subdeltoid bursal fluid. Normal visualized coracohumeral and coracoacromial ligaments. Normal quadrilateral space. Normal axillary space. Normal deltoid muscle. Normal trapezius muscle. MRI/Upper Ext Joint Only(Routine) IMPRESSION: Mild supraspinatus, infraspinatus, and subscapularis tendinosis without a full-thickness tear. Mild hypertrophic acromioclavicular arthrosis. Electronically Signed: Claudio Valiente MD at 12:51 EDT Reading Location ID and State: [facility] / [place] , Service support , CC: Dr. Ruy Guzman DO; Dr. Blake Wilcox MD Metal Furniture Repairer: Signed Normal [facility] CBC W Auto Differential pane l (Bld)on 12-11-2023 Basophils (Bld) [#/Vol] 0.04 10*3/uL [facility] Basophils/100 WBC (Bld) 0.6 % [facility] Differential cell count method Nom (Bld) Auto [facility] Eosinophils (Bld) [#/Vol] 0.10 10*3/uL [facility] Eosinophils/100 WBC (Bld) 1.5 % [facility] Erythrocyte distribution width (RBC) [Ratio] 12.1 % 11.5 - 15.0 % [facility] Hematocrit (Bld) [Volume fraction] 46.7 % 39.0 - 51.0 % [facility] Hemoglobin (Bld) [Mass/Vol] 15.9 g/dL 13.0 - 17.0 g/dL [facility] Immature granulocytes (Bld) [#/Vol] [facility] Immature granulocytes/100 WBC (Bld) 0.1 % [facility] Lymphocytes (Bld) [#/Vol] 1.16 10*3/uL [facility] Lymphocytes/100 WBC (Bld) 16.9 % [facility] MCH (RBC) [Entitic mass] 31.5 pg 26.0 - 34.0 pg [facility] MCHC (RBC) [Mass/Vol] 34.0 g/dL 30.5 - 36.0 g/dL [facility] MCV (RBC) [Entitic vol] 92.5 fL 80.0 - 100.0 fL [facility] Monocytes (Bld) [#/Vol] 0.77 10*3/uL [facility] Monocytes/100 WBC (Bld) 11.2 % [facility] Neutrophils (Bld) [#/Vol] 4.77 10*3/uL [facility] Neutrophils/100 WBC (Bld) 69.7 % [facility] Nucleated RBC (Bld) [#/Vol] [facility] Nucleated RBC/100 WBC (Bld) [Ratio] 0.0 % /100 WBC [facility] Platelet mean volume (Bld) [Entitic vol] 10.9 fL 9.0 - 12.7 fL [facility] Platelets (Bld) [#/Vol] 191 10*3/uL [facility] RBC (Bld) [#/Vol] 5.05 10*6/uL 4.20 - 6.0 0 m/uL [facility] WBC (Bld) [#/Vol] 6.85 10*3/uL [facility] Iron and Iron binding capaci ty panelon 12-11-2023 Interpretation and review of laboratory results Normal [facility] Iron [Mass/Vol] 136 ug/dL 41 - 186 ug/dL [place] Iron binding capacity [Mass/Vol] 292 ug/dL 232 - 386 ug/dL [facility] Iron/TIBC [Molar ratio] 46.6 % 15.0 - 57.0 % [facility] XR Knee - left 4 Viewson IMPRESSION: Bilateral medial compartment osteoarthritis left greater than right. Metal Furniture Repairer: GELA Transcribe Date/Time: Mar 23 2023 1:17P Dictated by : MARK SALCIDO MD This examination was interpreted and the report reviewed and electronically signed by: MARK SALCIDO MD on Mar 23 2023 1:51PM [facility] DIVISION OF RADIOLOGY * * *Final Report* * * DATE OF EXAM: Mar 20 2023 2:37PM WOX 5202 - XR KNEE 4V AP/PA BOTH+LAT/DIANNA LT / PROCEDURE REASON: multiple diagnoses * * * * Physician Interpretation * * * * EXAM(s): XR KNEE 4V AP/PA BOTH+LAT/DIANNA LT EXAM DATE/TIME: 03/20/2023 2:37 PM HISTORY: 67 years old Clinical information: Chronic pain of left knee Chronic pain of left knee pain for a couple of weeks anterior left knee no inj TECHNIQUE: Images: XR KNEE 4V AP/PA BOTH+LAT/DIANNA LT Comparison: None. RESULT: Findings: Left: Bone density appears well-preserved. No fractures or dislocations are seen. Moderate medial compartmental joint space narrowing with subchondral sclerosis and trace osteophytic lipping. No joint effusion. Right knee: Standing AP view of the right knee demonstrates mild medial compartmental joint space narrowing. DIVISION OF RADIOLOGY Provider, [facility] - 03/23/2023 * * *Final Report* * * DATE OF EXAM: Mar 20 2023 2:37PM WOX 5202 - XR KNEE 4V AP/PA BOTH+LAT/DIANNA LT / PROCEDURE REASON: multiple diagnoses * * * * Physician Interpretation * * * * EXAM(s): XR KNEE 4V AP/PA BOTH+LAT/DIANNA LT EXAM DATE/TIME: 03/20/2023 2:37 PM HISTORY: 67 years old Clinical information: Chronic pain of left knee Chronic pain of left knee pain for a couple of weeks anterior left knee no inj TECHNIQUE: Images: XR KNEE 4V AP/PA BOTH+LAT/DIANNA LT Comparison: None. RESULT: Findings: Left: Bone density appears well-preserved. No fractures or dislocations are seen. Moderate medial compartmental joint space narrowing with subchondral sclerosis and trace osteophytic lipping. No joint effusion. Right knee: Standing AP view of the right knee demonstrates mild medial compartmental joint space narrowing. IMPRESSION IMPRESSION: Bilateral medial compartment osteoarthritis left greater than right. Metal Furniture Repairer: GELA Transcribe Date/Time: Mar 23 2023 1:17P Dictated by : MARK SALCIDO MD This examination was interpreted and the report reviewed and electronically signed by: MARK SALCIDO MD on Mar 23 2023 1:51PM EST [facility] XR Knee - left 4 ViewsOrdere d By: [facility] Provider on 03-23-2023 [facility] CBC W Auto Differential pane l (Bld)on 03-21-2023 Basophils (Bld) [#/Vol] 0.03 10*3/uL <0.11 k/uL [facility] Basophils/100 WBC (Bld) 0.4 % [facility] Differential cell count method Nom (Bld) Auto [facility] Eosinophils (Bld) [#/Vol] 0.11 10*3/uL <0.46 k/uL [facility] Eosinophils/100 WBC (Bld) 1.5 % [facility] Erythrocyte distribution width (RBC) [Ratio] 12.6 % 11.5 - 15.0 % [facility] Hematocrit (Bld) [Volume fraction] 49.9 % 39.0 - 51.0 % [facility] Hemoglobin (Bld) [Mass/Vol] 16.3 g/dL 13.0 - 17.0 g/dL [facility] Immature granulocytes (Bld) [#/Vol] <0.10 k/uL [facility] Immature granulocytes/100 WBC (Bld) 0.3 % [facility] Lymphocytes (Bld) [#/Vol] 1.42 10*3/uL 1.00 - 4.00 k/uL [facility] Lymphocytes/100 WBC (Bld) 19.6 % [facility] MCH (RBC) [Entitic mass] 31.3 pg 26.0 - 34.0 pg [facility] MCHC (RBC) [Mass/Vol] 32.7 g/dL 30.5 - 36.0 g/dL [facility] MCV (RBC) [Entitic vol] 96.0 fL 80.0 - 100.0 fL [facility] Monocytes (Bld) [#/Vol] 0.94 10*3/uL High <0.87 k/uL [facility] Monocytes/100 WBC (Bld) 12.9 % [facility] Neutrophils (Bld) [#/Vol] 4.74 10*3/uL 1.45 - 7.50 k/uL [facility] Neutrophils/100 WBC (Bld) 65.3 % [facility] Nucleated RBC (Bld) [#/Vol] <0.01 k/uL [facility] Nucleated RBC/100 WBC (Bld) [Ratio] 0.0 /100 WBC [facility] Platelet mean volume (Bld) [Entitic vol] 11.3 fL 9.0 - 12.7 fL [facility] Platelets (Bld) [#/Vol] 204 10*3/uL 150 - 400 k/uL [facility] RBC (Bld) [#/Vol] 5.20 10*6/uL 4.20 - 6.0 0 m/uL [facility] WBC (Bld) [#/Vol] 7.26 10*3/uL 3.70 - 11.00 k/uL [facility] XR Knee - left 4 Viewson Radiology Study observation (narrative) [facility] No Panel InformationOrdered By: Cinthya Tolliver on 02-24-2023 Thyroid Stimulating Hormone (TSH) 0.87 uIU/mL 0.358-3.74 [facility] TSH (EXTERNAL)on 02-24-2023 TSH 0.87 IU/ml 0.2 - 5.6 IU/ml [facility] Whole blood hemoglobin A1c/t otal hemoglobin ratio (mass fraction)Ordered By: Cinthya Tolliver on 02-24-2023 HbA1c (Bld) [Mass fraction] 5.5 % 3.8-5.6 [facility] Comment on above: Normal < 5.7 % Predi abetic 5.7 - 6.4 % Diabetic >or= 6.5 % Please note range changes. XR Wrist - left PA and Later al and Obliqueon 09-22-2022 IMPRESSION: Chronic changes. No acute abnormality. Metal Furniture Repairer: PSCB Transcribe Date/Time: Sep 22 2022 4:09P Dictated by : SAMY FRAZIER MD This examination was interpreted and the report reviewed and electronically signed by: SAMY FRAZIER MD on Sep 22 2022 4:11PM [facility] DIVISION OF RADIOLOGY * * *Final Report* * * DATE OF EXAM: Sep 19 2022 6:13PM WOX 5270 - XR WRIST 3V PA/LAT/OBL LT / PROCEDURE REASON: Left wrist pain * * * * Physician Interpretation * * * * PROCEDURE: Left wrist INDICATION: Left wrist pain .hardware put in around 2000 and has pain off and on since then and worse in the last couple of months all around the wrist and thumb area no inj TECHNIQUE: XR WRIST 3V PA/LAT/OBL LT COMPARISON: 08/05/2022 FINDINGS: Stable position of partially threaded screw in the scaphoid. No evidence for residual fracture or avascular necrosis. Advanced 1st CMC, intercarpal and distal radial ulnar joint osteoarthrosis, not significantly changed. No erosion or focal soft tissue swelling. No fracture. Thin metallic foreign bodies in the soft tissues dorsal to the distal forearm again noted. DIVISION OF RADIOLOGY Provider, [facility] - 09/22/2022 * * *Final Report* * * DATE OF EXAM: Sep 19 2022 6:13PM WOX 5270 - XR WRIST 3V PA/LAT/OBL LT / PROCEDURE REASON: Left wrist pain * * * * Physician Interpretation * * * * PROCEDURE: Left wrist INDICATION: Left wrist pain .hardware put in around 2000 and has pain off and on since then and worse in the last couple of months all around the wrist and thumb area no inj TECHNIQUE: XR WRIST 3V PA/LAT/OBL LT COMPARISON: 08/05/2022 FINDINGS: Stable position of partially threaded screw in the scaphoid. No evidence for residual fracture or avascular necrosis. Advanced 1st CMC, intercarpal and distal radial ulnar joint osteoarthrosis, not significantly changed. No erosion or focal soft tissue swelling. No fracture. Thin metallic foreign bodies in the soft tissues dorsal to the distal forearm again noted. IMPRESSION IMPRESSION: Chronic changes. No acute abnormality. Metal Furniture Repairer: GELA Transcribe Date/Time: Sep 22 2022 4:09P Dictated by : SAMY FRAZIER MD This examination was interpreted and the report reviewed and electronically signed by: SAMY FRAZIER MD on Sep 22 2022 4:11PM EST [facility] XR Wrist - left PA and Later al and ObliqueOrdered By: [facility] Provider on 09-22-2022 [facility] XR Wrist - left PA and Later al and Obliqueon 09-19-2022 Radiology Study observation (narrative) [facility] XR Wrist - left PA and Later al and Obliqueon 08-08-2022 IMPRESSION: 1. Osteoarthritis as described. 2. Stable postsurgical changes. 2. Stable radiopaque foreign body in the dorsal soft tissues of the forearm. Metal Furniture Repairer: PSCB Transcribe Date/Time: Aug 08 2022 12:15P Dictated by : NANCY DELGADO MD This examination was interpreted and the report reviewed and electronically signed by: NANCY DELGADO MD on Aug 08 2022 12:17PM [facility] DIVISION OF RADIOLOGY * * *Final Report* * * DATE OF EXAM: Aug 05 2022 10:01AM WOX 5270 - XR WRIST 3V PA/LAT/OBL LT / PROCEDURE REASON: Left wrist pain * * * * Physician Interpretation * * * * TITLE: XR WRIST 3V PA/LAT/OBL LT CLINICAL INDICATION: Wrist pain TECHNIQUE: 3 view radiographic study of the left wrist COMPARISON: Radiograph dated May 24, 2019 FINDINGS: Intact surgical screw transfixing the scaphoid. Severe first carpometacarpal joint osteoarthritis with severe joint space narrowing, subchondral sclerosis, subchondral microcystic change and marginal osteophyte formation. Stable distal radioulnar joint degenerative changes with joint space narrowing, subchondral cyst formation and hypertrophic change. Stable joint space narrowing along the radial aspect of the proximal carpal row. Curvilinear radiopaque foreign body measuring 7 mm in the soft tissues of the dorsal mid to distal forearm. DIVISION [facility] RADIOLOGY [facility] * * *Final Report* * * DATE OF EXAM: Aug 05 2022 10:01AM WOX 5270 - XR WRIST 3V PA/LAT/OBL LT / PROCEDURE REASON: Left wrist pain * * * * Physician Interpretation * * * * TITLE: XR WRIST 3V PA/LAT/OBL LT CLINICAL INDICATION: Wrist pain TECHNIQUE: 3 view radiographic study of the left wrist COMPARISON: Radiograph dated May 24, 2019 FINDINGS: Intact surgical screw transfixing the scaphoid. Severe first carpometacarpal joint osteoarthritis with severe joint space narrowing, subchondral sclerosis, subchondral microcystic change and marginal osteophyte formation. Stable distal radioulnar joint degenerative changes with joint space narrowing, subchondral cyst formation and hypertrophic change. Stable joint space narrowing along the radial aspect of the proximal carpal row. Curvilinear radiopaque foreign body measuring 7 mm in the soft tissues of the dorsal mid to distal forearm. IMPRESSION IMPRESSION: 1. Osteoarthritis as described. 2. Stable postsurgical changes. 2. Stable radiopaque foreign body in the dorsal soft tissues of the forearm. Metal Furniture Repairer: PSCB Transcribe Date/Time: Aug 08 2022 12:15P Dictated by : NANCY DELGADO MD This examination was interpreted and the report reviewed and electronically signed by: NANCY DELGADO MD on Aug 08 2022 12:17PM EST [facility] XR Wrist - left PA and Later al and ObliqueOrdered By: [facility] Provider on 08-08-2022 [facility] XR Wrist - left PA and Later al and Obliqueon 08-05-2022 Radiology Study observation (narrative) [facility] ECG COMPLETEon 07-27-2022 Atrial Rate 71 BPM [facility] Calculated P Gustine 43 degrees [facility] Calculated R Gustine -40 degrees [facility] Calculated T Gustine 10 degrees [facility] P-R Interval 158 ms [facility] QRS Duration 94 ms [facility] QT Interval 394 ms [facility] QTC Calculation (Bazett) 428 ms [facility] Ventricular Rate 71 BPM [facility] Absolute lymphocyte countOrd ered By: Dr. Lorenz on 07-19-2022 Lymphocytes Auto (Unsp spec) [#/Vol] 1.03 10*3/uL 0.83-4.51 [facility] Basophil percentageOrdered B y: Dr. Lorenz on 07-19-2022 Basophils/100 WBC (Bld) 0.3 % 0-1 [facility] Eosinophils/100 WBC (Bld) 0.6 % 0-5 [facility] Neutrophils (Bld) [#/Vol] 7.2 10*3/uL 2.0-7.7 [facility] Neutrophils/100 WBC (Bld) 77.7 % 47-70 [facility] WBC (Bld) [#/Vol] 9.2 10*3/uL 4.4-11.0 [facility] Basophil percentageOrdered B y: Dr. Shelton on 07-19-2022 Bilirubin [Mass/Vol] 0.60 mg/dL 0.20-1.00 [facility] Comment on above: For patients on eltr ombopag therapy, use of Dimension [place] TBIL is not recommended. Chloride [Moles/Vol] 108 mmol/L 98-107 [facility] Glucose [Mass/Vol] 107 mg/dL 74-106 [facility] Comment on above: Fasting Glucose resu lt from 100 to 125 mg/dL suggests IMPAIRED HOMEOSTASIS per A.D.A. criteria. Potassium [Moles/Vol] 3.9 mmol/L 3.5-5.1 [facility] Protein [Mass/Vol] 6.4 g/dL 6.4-8.2 [facility] Sodium [Moles/Vol] 140 mmol/L 136-145 [facility] Blood erythrocytes count (nu mber/volume)Ordered By: Dr. Lorenz on 07-19-2022 RBC (Bld) [#/Vol] 5.02 10*6/uL 4.6-6.2 [facility] Blood hemoglobin measurement (mass/volume)Ordered By: Dr. Lorenz on 07-19-2022 Hemoglobin (Bld) [Mass/Vol] 15.4 g/dL 13.0-16.5 [facility] Blood lymphocytes/100 leukoc ytesOrdered By: Dr. Lorenz on 07-19-2022 Lymphocytes/100 WBC (Bld) 11.1 % 19-41 [facility] Blood monocytes/100 leukocyt esOrdered By: Dr. Lorenz on 07-19-2022 Monocytes/100 WBC (Bld) 10.0 % 0-10 [facility] Blood platelet mean volumeOr dered By: Dr. Lorenz on 07-19-2022 Platelet mean volume (Bld) [Entitic vol] 11.0 fL 6.2-12.0 [facility] Determination of erythrocyte mean corpuscular volume (MCV)Ordered By: Dr. Lorenz on 07-19-2022 MCV (RBC) [Entitic vol] 91.8 fL 80-94 [facility] Hematocrit Auto (Bld) [Volum e fraction]Ordered By: Dr. Lorenz on 07-19-2022 Hematocrit (Bld) [Volume fraction] 46.1 % 40-54 [facility] Laboratory - Chemistry and C hemistry - challengeOrdered By: Dr. Shelton on 07-19-2022 ALP [Catalytic activity/Vol] 60 U/L 45-117 [facility] ALT [Catalytic activity/Vol] 31 U/L 16-61 [facility] CO2 [Moles/Vol] 27.0 mmol/L 21.0-32.0 [facility] Globulin (S) [Mass/Vol] 3.3 g/dL 2.2-4.2 [facility] Urea nitrogen/Creatinine [Mass ratio] 20.5 mg/mg 10-20 [facility] Laboratory - Hematology and Cell countsOrdered By: Dr. Lorenz on 07-19-2022 Erythrocyte distribution width (RBC) [Entitic vol] 42.1 fL 35.1-43.9 [facility] Erythrocyte distribution width (RBC) [Ratio] 12.5 % 11.6-14.6 [facility] Immature granulocytes/100 WBC (Bld) 0.300 % 0.0-0.9 [facility] Comment on above: IG% - Immature Granu locytes (promyelocytes, myelocytes and metamyelocytes) > 1% indicates that a LEFT SHIFT is Present. MCH (RBC) [Entitic mass] 30.7 pg 27.0-32.0 [facility] Nucleated RBC/100 WBC (Bld) [Ratio] 0 % 0-5 [facility] MCHC Auto (RBC) [Mass/Vol]Or dered By: Dr. Lorenz on 07-19-2022 MCHC (RBC) [Mass/Vol] 33.4 g/dL 32-36 [facility] No Panel InformationOrdered By: Dr. Shelton on 07-19-2022 Estimated Creatinine Clearance Calc 80.68 ml/min [facility] Estimated GFR (MDRD) Amer 105 mL/min >60 [facility] Comment on above: GFR Calc Estimated GFR (MDRD) Non-Af Amer 87 mL/min >60 [facility] Comment on above: Non- GFR Calc Platelets bldOrdered By: Dr. Lorenz on 07-19-2022 Platelets (Bld) [#/Vol] 186 10*3/uL 150-450 [facility] Serum or plasma albumin alfred urement (mass/volume)Ordered By: Dr. Shelton on 07-19-2022 Albumin [Mass/Vol] 3.1 g/dL 3.2-5.0 [facility] Serum or plasma albumin/glob ulin mass ratioOrdered By: Dr. Shelton on 07-19-2022 Albumin/Globulin [Mass ratio] 0.9 {ratio} 0.9-2.4 [facility] Serum or plasma calcium alfred urement (mass/volume)Ordered By: Dr. Shelton on 07-19-2022 Calcium [Mass/Vol] 8.8 mg/dL 8.5-10.1 [facility] Serum or plasma creatinine m easurement (mass/volume)Ordered By: Dr. Shelton on 07-19-2022 Creatinine [Mass/Vol] 0.93 mg/dL 0.70-1.30 [facility] Comment on above: The validity of the calculated GFR & GFRAA in patients over 70 years has not been determined. Clinical correlation is essential. Serum or plasma urea nitroge n measurement (mass/volume)Ordered By: Dr. Shelton on 07-19-2022 Urea nitrogen [Mass/Vol] 19 mg/dL 7-18 [facility] Thin prep Papanicolaou smear with manual screeningOrdered By: Dr. Shelton on 07-19-2022 Thin prep Papanicolaou smear with manual screening 41 U/L 15-37 [facility] Thin prep Papanicolaou smear with manual screening 5 5-15 [facility] Laboratory - Chemistry and C hemistry - challengeOrdered By: Dr. Shelton on 07-18-2022 Magnesium [Mass/Vol] 2.0 mg/dL 1.6-2.6 [facility] Laboratory - CoagulationOrde red By: Dr. Null on 07-18-2022 aPTT Coag (Bld) [Time] 62.4 s 24.1-36.2 [facility] Basophil percentageOrdered B y: Dr. Lorenz on 07-17-2022 Basophil percentage 3.0 mg/dL 2.5-4.9 [facility] Basophil percentageOrdered B y: Dr. Null on 07-17-2022 Cholesterol [Mass/Vol] 165 mg/dL <200 [facility] Comment on above: <200 mg/dL Desirable 200-240 mg/dL Borderline >240 mg/dL High Risk Triglyceride [Mass/Vol] 188 mg/dL <199 [facility] Comment on above: The drugs N-Acetylcy steine and Metamizole may falsely depress this assay.Serum Triglycerides Reference Interval Normal <150 mg/dL Borderline high 150 - 199 mg/dL High 200 - 499 mg/dL Very High > or = 500 mg/dL No Panel InformationOrdered By: Dr. Null on 07-17-2022 Troponin I High Sensitivity 2011 pg/mL 3.0-78.0 [facility] Comment on above: Critical Result(s) C alled at: 01:55:18 07/17/2022 by: JOLENE Rich RN PCU. Results read back by same. Please Note: New Test Units and Gender Specific Reference Ranges. For more information see Policy Stat Procedure [place] High Sensitivity Troponin (TNIH) and attachments. Serum or plasma cholesterol in HDL measurement (mass/volume)Ordered By: Dr. Null on 07-17-2022 Cholesterol in HDL [Mass/Vol] 44 mg/dL >40 [facility] Comment on above: The drugs N-Acetylcy steine and Metamizole may falsely depress this assay. Reference Range HDL <40 mg/dL Low HDL Cholesterol HDL >or= 60 mg/dL High HDL Cholesterol Serum or plasma cholesterol in VLDL measurement (mass/volume)Ordered By: Dr. Null on 07-17-2022 Cholesterol in VLDL [Mass/Vol] 38 mg/dL 5-40 [facility] Serum or plasma low density lipoprotein (LDL) cholesterol measurement (mass/volume)Ordered By: Dr. Null on 07-17-2022 Cholesterol in LDL [Mass/Vol] 83 mg/dL 0-130 [facility] Absolute lymphocyte counton 07-16-2022 Lymphocytes Auto (Unsp spec) [#/Vol] 1.46 10*3/uL 0.83-4.51 [facility] Work Phone: Basophil percentageon 2021 Basophils/100 WBC (Bld) 0.2 % 0-1 [facility] Work Phone: Chloride [Moles/Vol] 109 mmol/L 98-107 [facility]: Eosinophils/100 WBC (Bld) 1.2 % 0-5 [facility] Work Phone: Glucose [Mass/Vol] 92 mg/dL 74-106 [facility] Work Phone: Neutrophils (Bld) [#/Vol] 6.1 10*3/uL 2.0-7.7 [facility] Work Phone: [phone] Neutrophils/100 WBC (Bld) 70.9 % 47-70 [facility] Work Phone: [phone] Potassium [Moles/Vol] 4.0 mmol/L 3.5-5.1 [facility] Work Phone: [phone] Sodium [Moles/Vol] 142 mmol/L 136-145 [facility] Work Phone: WBC (Bld) [#/Vol] 8.6 10*3/uL 4.4-11.0 [facility] Work Phone: Blood erythrocytes count (nu mber/volume)on 07-16-2022 RBC (Bld) [#/Vol] 5.17 10*6/uL 4.6-6.2 [facility] Work [facility]: Blood hemoglobin measurement (mass/volume)on 07-16-2022 Hemoglobin (Bld) [Mass/Vol] 16.2 g/dL 13.0-16.5 [facility] Work Phone: Blood lymphocytes/100 leukoc yteson 07-16-2022 Lymphocytes/100 WBC (Bld) 17.0 % 19-41 [facility] Work Phone: Blood monocytes/100 leukocyt eson 07-16-2022 Monocytes/100 WBC (Bld) 10.5 % 0-10 [facility] Work Phone: Blood platelet mean volumeon 07-16-2022 Platelet mean volume (Bld) [Entitic vol] 10.4 fL 6.2-12.0 [facility] Work Phone: Determination of erythrocyte mean corpuscular volume (MCV)on 07-16-2022 MCV (RBC) [Entitic vol] 90.7 fL 80-94 [facility] Work Phone: Hematocrit Auto (Bld) [Volum e fraction]on 07-16-2022 Hematocrit (Bld) [Volume fraction] 46.9 % 40-54 [facility] Work Phone: INR in Blood by Coagulation assayOrdered By: Dr. Hoff on 07-16-2022 INR Coag (Bld) [Relative time] 1.1 {INR} [facility] Laboratory - Chemistry and C hemistry - challengeon 07-16-2022 CO2 [Moles/Vol] 30.0 mmol/L 21.0-32.0 [facility] Work Phone: Urea nitrogen/Creatinine [Mass ratio] 20.8 mg/mg 10-20 [facility] Work Phone: Laboratory - Coagulationon 1 09-16-2021 aPTT Coag (Bld) [Time] 28.6 s 24.1-36.2 [facility] Work Phone: Laboratory - CoagulationOrde red By: Dr. Hoff on 07-16-2022 PT Coag (PPP) [Time] 13.9 s 11.7-14.9 [facility] Laboratory - Hematology and Cell countson 07-16-2022 Erythrocyte distribution width (RBC) [Entitic vol] 41.5 fL 35.1-43.9 [facility] Work Phone: Erythrocyte distribution width (RBC) [Ratio] 12.6 % 11.6-14.6 [facility] Work Phone: Immature granulocytes/100 WBC (Bld) 0.200 % 0.0-0.9 [facility] Work Phone: Comment on above: IG% - Immature Granu locytes (promyelocytes, myelocytes and metamyelocytes) > 1% indicates that a LEFT SHIFT is Present. MCH (RBC) [Entitic mass] 31.3 pg 27.0-32.0 [facility] Work Phone: Nucleated RBC/100 WBC (Bld) [Ratio] 0 % 0-5 [facility] Work Phone: MCHC Auto (RBC) [Mass/Vol]on 07-16-2022 MCHC (RBC) [Mass/Vol] 34.5 g/dL 32-36 [facility] Work Phone: No Panel Informationon 07-16 Troponin I High Sensitivity 928 pg/mL 3.0-78.0 [facility] Work Phone: Comment on above: Critical Result(s) C alled at: 21:56:47 07/16/2022 by: BARTOLO NAILS RN ED. Results read back by same. Please Note: New Test Units and Gender Specific Reference Ranges. For more information see Policy Stat Procedure [place] High Sensitivity Troponin (TNIH) and attachments. Estimated Creatinine Clearance Calc 71.94 ml/min [facility] Work Phone: Estimated GFR (MDRD) Amer 95 mL/min >60 [facility] Work Phone: Comment on above: GFR Calc Estimated GFR (MDRD) Non-Af Amer 78 mL/min >60 [facility] Work Phone: Comment on above: Non- GFR Calc No Panel InformationOrdered By: Dr. Hoff on 07-16-2022 D-Dimer Quantitative (PE/DVT) 0.53 FEU/ug/m 0.27-0.49 [facility] Comment on above: D-Dimer ELEVATED (>0 .49): Additional studies and clinicalassessments are indicated to conclude diagnosis of:Deep Vein Thrombosis (DVT) or Pulmonary Embolism (PE)CRITICAL VALUE VERIFIED. CALLED TO ERMPWOLZ01/17/22 1921 Neva Tang.RESULTS READ BACK BY SAME . Platelets bldon 07-16-2022 Platelets (Bld) [#/Vol] 187 10*3/uL 150-450 [facility] Work Phone: Serum or plasma calcium alfred urement (mass/volume)on 07-16-2022 Calcium [Mass/Vol] 8.9 mg/dL 8.5-10.1 [facility] Work Phone: Serum or plasma creatinine m easurement (mass/volume)on 07-16-2022 Creatinine [Mass/Vol] 1.01 mg/dL 0.70-1.30 [facility] Work Phone: Comment on above: The validity of the calculated GFR & GFRAA in patients over 70 years has not been determined. Clinical correlation is essential. Serum or plasma urea nitroge n measurement (mass/volume)on 07-16-2022 Urea nitrogen [Mass/Vol] 21 mg/dL 7-18 [facility] Work Phone: Thin prep Papanicolaou smear with manual screeningon 07-16-2022 Thin prep Papanicolaou smear with manual screening 3 - [facility] Work Phone: CBC panel Auto (Bld)on 02-07 Erythrocyte distribution width (RBC) [Ratio] 12.8 % 11.5 - 15.0 % [facility] Hematocrit (Bld) [Volume fraction] 49.3 % 39.0 - 51.0 % [facility] Hemoglobin (Bld) [Mass/Vol] 16.5 g/dL 13.0 - 17.0 g/dL [facility] MCH (RBC) [Entitic mass] 31.5 pg 26.0 - 34.0 pg [facility] MCHC (RBC) [Mass/Vol] 33.5 g/dL 30.5 - 36.0 g/dL [facility] MCV (RBC) [Entitic vol] 94.1 fL 80.0 - 100.0 fL [facility] Nucleated RBC (Bld) [#/Vol] 10*3/uL <0.01 k/uL [facility] Platelet mean volume (Bld) [Entitic vol] 12.0 fL 9.0 - 12.7 fL [facility] Platelets (Bld) [#/Vol] 169 10*3/uL 150 - 400 k/uL [facility] RBC (Bld) [#/Vol] 5.24 10*6/uL 4.20 - 6.0 0 m/uL [facility] WBC (Bld) [#/Vol] 6.44 10*3/uL 3.70 - 11.00 k/uL [facility] CNPNon 08-12-2021 CNPN Telephone (CDLBME) -- KETAN COTTON ([id number]) 1955 M Date Time Provider Department 08/12/21 [facility] During your visit today, we recorded the following information about you: Pauly Bojorquez RN 08/12/2021 11:45 AM Signed Pt called in yesterday regarding stress test. Reviewed instructions with pt. Allergies As of Date: 08/12/2021 Noted Allergy Reaction baycol [Other] 09/07/2007 5 - Intolerance Comments: leg cramps Environmental allergies [Other] 07/02/2009 Comments: Cockroaches, trees, weeds ERYTHROMYCIN 08/30/2005 5 - Intolerance Comments: GI upset LIPITOR (ATORVASTATIN CALCIUM) 08/30/2005 5 - Intolerance Comments: leg pain,weakness NIASPAN (NIACIN) 10/04/2010 4 - Hives PENICILLINS 08/30/2005 4 - Hives Comments: hives Date Reviewed: 08/06/2021 Reviewed by: Ajit Aguilera [facility] - Fully Assessed Reason for Visit: Reminder Call [[id number]] Prescriptions as of 08/12/2021 - rosuvastatin (CRESTOR) 20 mg tablet Take 1 tablet by mouth daily at bedtime. - ferrous sulfate 325 mg (65 mg iron) tablet Take 1 tablet by mouth twice daily with meals. - nystatin-triamcinolone (MYCOLOG) ointment Apply sparingly to perineum twice daily for irritation/infection. - tamsulosin (FLOMAX) 0.4 mg Take 1 capsule by mouth daily at bedtime. - naproxen (NAPROSYN) 500 mg tablet Take 1 tablet by mouth twice daily as needed (for pain/inflammation). Take with food. - esomeprazole (NEXIUM) 40 mg capsule Take 1 capsule by mouth once daily. - COMPOUNDED PRESCRIPTION CMC Push Brace to be used daily as directed. - Compression Knee Highs KNEE HIGH COMPRESSION STOCKINGS 20-30 MM. DX: EDEMA, varicose veins - nralhtsm-uym-TD-lycopen-leonides tein (CENTRUM SILVER MEN) 300-600-300 mcg tab Take 1 tablet by mouth once daily. - Diclofenac Sodium (VOLTAREN) 1 % gel Apply 2 g to affected area twice daily as needed. Problem List As Of Date 08/12/2021 Noted Resolved FX RADIUS HEAD-CLOSED [S52.123A] 09/22/2003 ACUTE GASTRITIS W/O HEMORRHAGE [K29.00] ENTHESOPATHY OF HIP [M76.899] ESOPHAGEAL REFLUX [K21.9] Hyperlipidemia [E78.5] Screening for colon cancer [Z12.11] 11/05/2010 Benign neoplasm of rectum and anal canal [D12.8*11/05/2010 Internal hemorrhoids without mention of complic*11/05/2010 Generalized anxiety disorder [F41.1] 10/09/2015 Other social stressor [Z65.9] 10/09/2015 Dizziness [R42] 10/19/2015 Bilateral carotid artery stenosis [I65.23] 10/28/2015 03/03/2016 Stress and adjustment reaction [F43.29] 03/03/2016 Hypogonadism in male [E29.1] Left foot drop [M21.372] 03/21/2018 Neck pain [M54.2] 03/21/2018 Gastroesophageal reflux disease with esophagiti*12/10/2020 Encounter Status:Closed by PAULY BOJORQUEZ on 08/12/21 [facility] XR Chest PA and Lateralon IMPRESSION: No definite acute radiographic abnormality. Metal Furniture Repairer: PSCB Transcribe Date/Time: Aug 06 2021 10:00A Dictated by : EMA COLLINS MD This examination was interpreted and the report reviewed and electronically signed by: EMA COLLINS MD on Aug 06 2021 10:02AM [facility] DIVISION OF RADIOLOGY * * *Final Report* * * DATE OF EXAM: Aug 06 2021 9:35AM WOX [id number] - XR CHEST 2V FRONTAL/LAT / PROCEDURE REASON: multiple diagnoses * * * * Physician Interpretation * * * * EXAMINATION: CHEST RADIOGRAPH (2 VIEW FRONTAL & LATERAL) CLINICAL HISTORY: Chest pain, unspecified type SOB (shortness of breath) MQ: XC2_6 EXAM DATE/TIME: 08/06/2021 9:35 AM COMPARISON: Chest x-ray on 02/04/2016. RESULT: Lines, tubes, and devices: None. Lungs and pleura: Probably mild atelectasis in the lingula. No definite consolidation. No lung mass. No pleural effusion. No pneumothorax. Cardiomediastinal silhouette: Normal cardiomediastinal silhouette. Bones and soft tissues: Unremarkable. DIVISION OF RADIOLOGY Provider, [facility] - 08/06/2021 * * *Final Report* * * DATE OF EXAM: Aug 06 2021 9:35AM WOX [id number] - XR CHEST 2V FRONTAL/LAT / PROCEDURE REASON: multiple diagnoses * * * * Physician Interpretation * * * * EXAMINATION: CHEST RADIOGRAPH (2 VIEW FRONTAL & LATERAL) CLINICAL HISTORY: Chest pain, unspecified type SOB (shortness of breath) MQ: XC2_6 EXAM DATE/TIME: 08/06/2021 9:35 AM COMPARISON: Chest x-ray on 02/04/2016. RESULT: Lines, tubes, and devices: None. Lungs and pleura: Probably mild atelectasis in the lingula. No definite consolidation. No lung mass. No pleural effusion. No pneumothorax. Cardiomediastinal silhouette: Normal cardiomediastinal silhouette. Bones and soft tissues: Unremarkable. IMPRESSION IMPRESSION: No definite acute radiographic abnormality. Metal Furniture Repairer: PSCB Transcribe Date/Time: Aug 06 2021 10:00A Dictated by : EMA COLLINS MD This examination was interpreted and the report reviewed and electronically signed by: EMA CLOLINS MD on Aug 06 2021 10:02AM EST [facility] Radiology Study observation (narrative) [facility] XR Chest PA and LateralOrder ed By: [facility] Provider on 08-06-2021 [facility] CNOVon 06-04-2019 CNOV Office Visit (AGPOB3 ) -- SARAIKETAN Reyes ([id number]) 1955 M Date Time Provider Department 06/04/19 8:30 AM BLAKE SOW JR AGPOB3 During your visit today, we recorded the following information about you: Temperature Weight Height 98.2 degrees 92.1 kg 1.727 m Blake Sow MD 06/04/2019 10:08 AM Signed 06/03/2019 Name:Ketan Cotton Date of :1955 History of Chief Complaint: Ketan is seeing me as a new patient today. He complains of a left wrist injury that took place in 2000. He had surgery completed in 2000 and a few weeks ago he had severe pain with the right wrist. He does not complain of any numbness or tingling. He otherwise has no other complaints. PAST MEDICAL HISTORY Diagnosis Date - Benign neoplasm of rectum and anal canal Seeing Dr. Falcon - Enthesopathy of hip region - Esophageal reflux - Generalized anxiety disorder - Hypogonadism in male - Internal hemorrhoids without mention of complication - Neuroma LEFT FOOT - Other and unspecified hyperlipidemia - Umbilical hernia without mention of obstruction or gangrene - Varicose veins - Vitamin D insufficiency PAST SURGICAL HISTORY Procedure Laterality Date - COLONOSCOPY W/BX 11/05/10 - EGD W/O OR W/BRUSH/WASH 11/17/00 EGD - EGD W/O OR W/BRUSH/WASH 09/06/05 EGD - EXCISION NEUROMA, DIGIT NERVE EACH ADDL 06/2009 Bilateral feet - HEMORRHOID SURGERY HX [id number] Guttman - KNEE SCOPE,DIAGNOSTIC Arthroscopy, knee, BILAT - PAST SURGICAL HISTORY OF 07/01 left wrist and left elbow - PAST SURGICAL HISTORY OF 05/2009 Varicose vein stripping - PAST SURGICAL HISTORY OF 02/22/2019 left foot fracture/dislocation repair. Dr. Kirk - REMOVAL OF TONSILS,<12 Y/O Tonsillectomy - REPAIR UMBILICAL RONNI,5+Y/O,REDUC 04/03/09 Social History Socioeconomic History Marital status: Spouse name: Zeenat Number of children: 3 Years of education: Not on file Highest education level: Not on file Occupational History Employer: [employer] Social Needs Financial resource strain: Not on file Food insecurity: Worry: Not on file Inability: Not on file Transportation needs: Medical: Not on file Non-medical: Not on file Tobacco Use Smoking status: Never Smoker Smokeless tobacco: Never Used Substance and Sexual Activity Alcohol use: Yes Comment: ocassional Drug use: No Sexual activity: Yes Partners: Female Lifestyle Physical activity: Days per week: Not on file Minutes per session: Not on file Stress: Not on file Relationships Social connections: Talks on phone: Not on file Gets together: Not on file Attends mu-ism service: Not on file Active member of club or organization: Not on file Attends meetings of clubs or organizations: Not on file Relationship status: Not on file Intimate partner violence: Fear of current or ex partner: Not on file Emotionally abused: Not on file Physically abused: Not on file Forced sexual activity: Not on file Other Topics Concerns: Not on file Social History Narrative Not on file ALLERGIES Allergen Reactions - Baycol [Other] Intolerance leg cramps - Environmental Aller* Cockroaches, trees, weeds - Erythromycin Intolerance GI upset - Lipitor [Atorvastat* Intolerance leg pain,weakness - Niaspan [Niacin] Hives - Penicillins Hives hives Current Outpatient Medications Medication Sig Dispense Refill - testosterone cypionate (DEPO-TESTOSTERONE) 200 mg/mL injection inject 1ml intramuscularly every 4 weeks 6 mL 0 - tamsulosin ER (FLOMAX) 0.4 mg cap Take 1 capsule by mouth daily at bedtime. 30 capsule 5 - albuterol sulfate (PROAIR RESPICLICK) 90 mcg/actuation aepb Inhale 1 Inhaler as instructed every 4 hours as needed (cough/wheezing). 1 Inhaler 1 - naproxen (NAPROSYN) 500 mg tablet Take 1 tablet by mouth twice daily as needed (for pain/inflammation). Take with food. 180 tablet 1 - pravastatin (PRAVACHOL) 40 mg tablet Take 1 tablet by mouth daily at bedtime. 90 tablet 3 - esomeprazole (NEXIUM) 40 mg capsule Take 1 capsule by mouth once daily. 90 capsule 3 - COMPOUNDED PRESCRIPTION CMC Push Brace to be used daily as directed. 1 Device 0 - cyclobenzaprine (FLEXERIL) 5 mg tablet Take 1 tablet by mouth at bedtime as needed for Muscle Spasm. 30 tablet 0 - Compression Knee Highs KNEE HIGH COMPRESSION STOCKINGS 20-30 MM. DX: EDEMA, varicose veins 1 Device 1 - suwehjgi-olg-BX-lycopen-leonides tein (CENTRUM SILVER MEN) 300-600-300 mcg tab Take 1 tablet by mouth once daily. 0 - nystatin-triamcinolone (MYCOLOG) ointment Apply sparingly to perineum twice daily for irritation/infection. 30 g 1 - aspirin, enteric coated (ASPIRIN, ENTERIC COATED) 81 mg EC tablet Take 81 mg by mouth once daily. - Diclofenac Sodium (VOLTAREN) 1 % gel Apply 2 g to affected area twice daily as needed. 100 g 5 No current facility-administered medications for this visit. VITALS Temp 36.8 ?C (98.2 ?F) Ht 172.7 cm (5' 8) Wt 92.1 kg (203 lb) BMI 30.87 kg/m? PHYSICAL EXAMINATION: General: he is a well developed, well nourished male Psyche: he is alert and oriented and cooperative to our examination Skin: Skin condition is healthy without rashes or erythema. Cadiovascular: Palpable radial pulse with brisk cap refill distally Neck: Supple with no JVD Lymph: There is no palpable epitrochlear Pulmonary: he has non labored breathing. There is no evidence of cyanosis. There is no clubbing of his fingernails. he has no pursed lips. Neuro: he is alert and oriented x3. There are no focal neurologic deficits. See sensation exam below. Head: Normocephalic and atraumatic Musculoskeletal: There is no swelling or ecchymosis. There are no skin lacerations or abrasions. There are no Heberden's or Barbara's nodes. There is no boutonniere or swan-neck deformity of the fingers. There is no ulnar drift of the fingers. There is no intrinsic muscular atrophy. There is a negative shoulder sign over the thumb CMC joint. There is no dorsal subluxation of the ulnar head. He is very tender to palpation over the distal radial ulnar joint. He has no tenderness over the ulnar styloid. His a negative Cobian maneuver. He has a negative midcarpal shift test. He has no tenderness over the radial head, olecranon or medial epicondyles. He has 10? of supination and 90? of pronation. Sensation is intact to light touch distally. Imaging: No imaging obtained. 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 I have explained the risks, benefits and potential complications of the injection. Patient understands these risks and agrees to proceed. Patient understands it may take 3-5 days before he has a resolutions of symptoms. I will see him back as needed. All of the patients questions were answered to his satisfaction. I reviewed diagnosis with patient verbally. We discussed his treatment options in depth and established a course of treatment suited to him. Procedure note: A timeout procedure(s) was performed. After prepping and draping the patient's right wrist(s), I injected 2cc of 1% Lidocaine and 80 mg of Kenalog into the patient's right distal ulnar joint. Patient tolerated procedure(s) well. Scribe Attestation Statement: Scribe Statement: I, Patti Hubbard CMA, am scribing for, and in the presence of Blake Sow MD Scribe: Patti Hubbard CMA Clinician Attestation Statement: The information in this document, created by the medical assembly for me, accurately reflects the services I personally performed and the decisions made by me. I have reviewed and approved this document for accuracy. ? Blake Sow MD Please note: This note has been produced using speech recognition software and may contain errors related to that system including grammar, punctuation, spelling, gender and words and phrases that may be inappropriate. Shannan Parada 06/04/2019 10:08 AM Signed REVIEW OF SYSTEMS: GENERAL: Well developed, well nourished. No acute distress PAIN: Negative for pain, history of chronic pain or current treatment for chronic pain conditions CARDIOVASCULAR: Leg swelling yes/ erik leg and yes MSK: joint pain yes and back pain yes SKIN: Itching yes NEURO: Negative for seizure, trauma, numbness/tingling of extremities. ENDOCRINE: Negative for Diabetes Type 1 and Type 2 HEMATOLOGY: Negative for excessive bleeding, clots, bleeding disorders. Referring Provider: SELF [[id number]] Allergies As of Date: 06/04/2019 Noted Allergy Reaction baycol [Other] 09/07/2007 5 - Intolerance Comments: leg cramps Environmental allergies [Other] 07/02/2009 Comments: Cockroaches, trees, weeds ERYTHROMYCIN 08/30/2005 5 - Intolerance Comments: GI upset LIPITOR (ATORVASTATIN CALCIUM) 08/30/2005 5 - Intolerance Comments: leg pain,weakness NIASPAN (NIACIN) 10/04/2010 4 - Hives PENICILLINS 08/30/2005 4 - Hives Comments: hives Date Reviewed: 06/04/2019 Reviewed by: Blake Sow Jr. 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] Order(s):[] lidocaine (PF) 10 mg/mL (1 %) 10 mg injection (XYLOCAINE)Disp: Rfl: [] triamcinolone acetonide 40 mg injection (KENALOG 40)Disp: Rfl: ASP/INJ INTERMED JOINT [[id number]] Order #: [id number] Prescriptions as of 06/04/2019 Sig: TESTOSTERONE CYPIONATE 200 MG* inject 1ml intramuscularly ev* TAMSULOSIN 0.4 MG CAPSULE Take 1 capsule by mouth daily* ALBUTEROL SULFATE 90 MCG/ACTU* Inhale 1 Inhaler as instructe* NAPROXEN 500 MG TABLET Take 1 tablet by mouth twice * PRAVASTATIN 40 MG TABLET Take 1 tablet by mouth daily * ESOMEPRAZOLE MAGNESIUM 40 MG * Take 1 capsule by mouth once * COMPOUNDED PRESCRIPTION CMC Push Brace to be used genevieve* CYCLOBENZAPRINE 5 MG TABLET Take 1 tablet by mouth at bed* COMPOUNDED PRESCRIPTION KNEE HIGH COMPRESSION STOCKIN* PHFQWFFO-WOD-TCVZL ACID 300 M* Take 1 tablet by mouth once d* NYSTATIN-TRIAMCINOLONE 100,00* Apply sparingly to perineum t* ASPIRIN 81 MG TABLET,DELAYED * Take 81 mg by mouth once estella* DICLOFENAC 1 % TOPICAL GEL Apply 2 g to affected area tw* Problem List As Of Date 06/04/2019 Noted Resolved FX RADIUS HEAD-CLOSED [S52.123A] INVALID FOR* ACUTE GASTRITIS W/O HEMORRHAGE [K29.00] ENTHESOPATHY OF HIP [M76.899] ESOPHAGEAL REFLUX [K21.9] Hyperlipidemia [E78.5] Special screening for malignant neoplasms, colo*INVALID FOR*11/07/2017 Benign neoplasm of rectum and anal canal [D12.8*INVALID FOR* Internal hemorrhoids without mention of complic*INVALID FOR* Generalized anxiety disorder [F41.1] INVALID FOR* Other social stressor [Z65.9] INVALID FOR* Dizziness [R42] INVALID FOR* Bilateral carotid artery stenosis [I65.23] INVALID FOR*03/03/2016 More... Stress and adjustment reaction [F43.29] INVALID FOR* Hypogonadism in male [E29.1] Left foot drop [M21.372] INVALID FOR* Neck pain [M54.2] INVALID FOR* Prescriptions ordered this encounter Disp Refills Start End LIDOCAINE (PF) 10 MG/ML (1 %) INJECT* 06/04/2019 06/04/2019 Route: OTHER TRIAMCINOLONE ACETONIDE 40 MG/ML KENDALL* 06/04/2019 06/04/2019 Route: INTRALESIONA Disposition: Return if symptoms worsen or fail to improve. Follow-up and Disposition History Recorded Encounter Status:Closed by BLAKE SOW MD on 06/04/19 [facility] PROGRESSon 06-04-2019 PROGRESS HNO ID: [id number] Author: Prashant Lucas (Tech) Service: ? Author Type: Golf Manager Type: Progress Notes Filed: 06/04/2019 10:08 AM Note Text: REVIEW OF SYSTEMS: GENERAL: Well developed, well nourished. No acute distress PAIN: Negative for pain, history of chronic pain or current treatment for chronic pain conditions CARDIOVASCULAR: Leg swelling yes/ erik leg and yes MSK: joint pain yes and back pain yes SKIN: Itching yes NEURO: Negative for seizure, trauma, numbness/tingling of extremities. ENDOCRINE: Negative for Diabetes Type 1 and Type 2 HEMATOLOGY: Negative for excessive bleeding, clots, bleeding disorders. Normal [facility] PROGRESS HNO ID: [id number] Author: Blake Sow Jr. Service: ? Author Type: Physician Type: Progress Notes Filed: 06/04/2019 10:08 AM Note Text: 06/03/2019 Name:Ketan Cotton Date of :1955 History of Chief Complaint: Ketan is seeing me as a new patient today. He complains of a left wrist injury that took place in 2000. He had surgery completed in 2000 and a few weeks ago he had severe pain with the right wrist. He does not complain of any numbness or tingling. He otherwise has no other complaints. PAST MEDICAL HISTORY Diagnosis Date - Benign neoplasm of rectum and anal canal Seeing Dr. Falcon - Enthesopathy of hip region - Esophageal reflux - Generalized anxiety disorder - Hypogonadism in male - Internal hemorrhoids without mention of complication - Neuroma LEFT FOOT - Other and unspecified hyperlipidemia - Umbilical hernia without mention of obstruction or gangrene - Varicose veins - Vitamin D insufficiency PAST SURGICAL HISTORY Procedure Laterality Date - COLONOSCOPY W/BX 11/05/10 - EGD W/O OR W/BRUSH/WASH 11/17/00 EGD - EGD W/O OR W/BRUSH/WASH 09/06/05 EGD - EXCISION NEUROMA, DIGIT NERVE EACH ADDL 06/2009 Bilateral feet - HEMORRHOID SURGERY HX [id number]-Eq Guttman - KNEE SCOPE,DIAGNOSTIC Arthroscopy, knee, BILAT - PAST SURGICAL HISTORY OF 07/01 left wrist and left elbow - PAST SURGICAL HISTORY OF 05/2009 Varicose vein stripping - PAST SURGICAL HISTORY OF 02/22/2019 left foot fracture/dislocation repair. Dr. Kirk - REMOVAL OF TONSILS,<12 Y/O Tonsillectomy - REPAIR UMBILICAL RONNI,5+Y/O,REDUC 04/03/09 Social History Socioeconomic History Marital status: Spouse name: Zeenat Number of children: 3 Years of education: Not on file Highest education level: Not on file Occupational History Employer: [employer] Social Needs Financial resource strain: Not on file Food insecurity: Worry: Not on file Inability: Not on file Transportation needs: Medical: Not on file Non-medical: Not on file Tobacco Use Smoking status: Never Smoker Smokeless tobacco: Never Used Substance and Sexual Activity Alcohol use: Yes Comment: ocassional Drug use: No Sexual activity: Yes Partners: Female Lifestyle Physical activity: Days per week: Not on file Minutes per session: Not on file Stress: Not on file Relationships Social connections: Talks on phone: Not on file Gets together: Not on file Attends mu-ism service: Not on file Active member of club or organization: Not on file Attends meetings of clubs or organizations: Not on file Relationship status: Not on file Intimate partner violence: Fear of current or ex partner: Not on file Emotionally abused: Not on file Physically abused: Not on file Forced sexual activity: Not on file Other Topics Concerns: Not on file Social History Narrative Not on file ALLERGIES Allergen Reactions - Baycol [Other] Intolerance leg cramps - Environmental Aller* Cockroaches, trees, weeds - Erythromycin Intolerance GI upset - Lipitor [Atorvastat* Intolerance leg pain,weakness - Niaspan [Niacin] Hives - Penicillins Hives hives Current Outpatient Medications Medication Sig Dispense Refill - testosterone cypionate (DEPO-TESTOSTERONE) 200 mg/mL injection inject 1ml intramuscularly every 4 weeks 6 mL 0 - tamsulosin ER (FLOMAX) 0.4 mg cap Take 1 capsule by mouth daily at bedtime. 30 capsule 5 - albuterol sulfate (PROAIR RESPICLICK) 90 mcg/actuation aepb Inhale 1 Inhaler as instructed every 4 hours as needed (cough/wheezing). 1 Inhaler 1 - naproxen (NAPROSYN) 500 mg tablet Take 1 tablet by mouth twice daily as needed (for pain/inflammation). Take with food. 180 tablet 1 - pravastatin (PRAVACHOL) 40 mg tablet Take 1 tablet by mouth daily at bedtime. 90 tablet 3 - esomeprazole (NEXIUM) 40 mg capsule Take 1 capsule by mouth once daily. 90 capsule 3 - COMPOUNDED PRESCRIPTION CMC Push Brace to be used daily as directed. 1 Device 0 - cyclobenzaprine (FLEXERIL) 5 mg tablet Take 1 tablet by mouth at bedtime as needed for Muscle Spasm. 30 tablet 0 - Compression Knee Highs KNEE HIGH COMPRESSION STOCKINGS 20-30 MM. DX: EDEMA, varicose veins 1 Device 1 - ipgysebo-rrx-ZN-lycopen-leonides tein (CENTRUM SILVER MEN) 300-600-300 mcg tab Take 1 tablet by mouth once daily. 0 - nystatin-triamcinolone (MYCOLOG) ointment Apply sparingly to perineum twice daily for irritation/infection. 30 g 1 - aspirin, enteric coated (ASPIRIN, ENTERIC COATED) 81 mg EC tablet Take 81 mg by mouth once daily. - Diclofenac Sodium (VOLTAREN) 1 % gel Apply 2 g to affected area twice daily as needed. 100 g 5 No current facility-administered medications for this visit. VITALS Temp 36.8 ?C (98.2 ?F) Ht 172.7 cm (5' 8) Wt 92.1 kg (203 lb) BMI 30.87 kg/m? PHYSICAL EXAMINATION: General: he is a well developed, well nourished male Psyche: he is alert and oriented and cooperative to our examination Skin: Skin condition is healthy without rashes or erythema. Cadiovascular: Palpable radial pulse with brisk cap refill distally Neck: Supple with no JVD Lymph: There is no palpable epitrochlear Pulmonary: he has non labored breathing. There is no evidence of cyanosis. There is no clubbing of his fingernails. he has no pursed lips. Neuro: he is alert and oriented x3. There are no focal neurologic deficits. See sensation exam below. Head: Normocephalic and atraumatic Musculoskeletal: There is no swelling or ecchymosis. There are no skin lacerations or abrasions. There are no Heberden's or Barbara's nodes. There is no boutonniere or swan-neck deformity of the fingers. There is no ulnar drift of the fingers. There is no intrinsic muscular atrophy. There is a negative shoulder sign over the thumb CMC joint. There is no dorsal subluxation of the ulnar head. He is very tender to palpation over the distal radial ulnar joint. He has no tenderness over the ulnar styloid. His a negative Cobian maneuver. He has a negative midcarpal shift test. He has no tenderness over the radial head, olecranon or medial epicondyles. He has 10? of supination and 90? of pronation. Sensation is intact to light touch distally. Imaging: No imaging obtained. 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 I have explained the risks, benefits and potential complications of the injection. Patient understands these risks and agrees to proceed. Patient understands it may take 3-5 days before he has a resolutions of symptoms. I will see him back as needed. All of the patients questions were answered to his satisfaction. I reviewed diagnosis with patient verbally. We discussed his treatment options in depth and established a course of treatment suited to him. Procedure note: A timeout procedure(s) was performed. After prepping and draping the patient's right wrist(s), I injected 2cc of 1% Lidocaine and 80 mg of Kenalog into the patient's right distal ulnar joint. Patient tolerated procedure(s) well. Scribe Attestation Statement: Scribe Statement: I, Patti Hubbard CMA, am scribing for, and in the presence of Blake Sow MD Scribe: Patti Hubbard CMA Clinician Attestation Statement: The information in this document, created by the medical assembly for me, accurately reflects the services I personally performed and the decisions made by me. I have reviewed and approved this document for accuracy. ? Blake Sow MD Please note: This note has been produced using speech recognition software and may contain errors related to that system including grammar, punctuation, spelling, gender and words and phrases that may be inappropriate. Normal [facility] Vital Signs Date Time Vital Sign Value Performing Clinician Alirio cee 02-27-2025 14:16-0400 Body mass index (BMI) [Ratio] 30.13 kg/m2 Tara Charles APRN.[facility] Work Phone: [facility] 02-27-2025 14:16-0400 Body temperature 97.81 [degF] Tara Suppan OXYACETYLENE WELDER.CHIEF OPERATOR HYDROFORMER Work Phone: [facility] 02-27-2025 14:16-0400 Body weight 92.53 kg Tara Suppan OXYACETYLENE WELDER.CHIEF OPERATOR HYDROFORMER Work Phone: [facility] 02-27-2025 14:16-0400 Diastolic blood pressure 68 mm[Hg] Tara Suppan OXYACETYLENE WELDER.CHIEF OPERATOR HYDROFORMER Work Phone: [facility] 02-27-2025 14:16-0400 Heart rate 65 /min Tara Suppan OXYACETYLENE WELDER.CHIEF OPERATOR HYDROFORMER Work Phone: [facility] 02-27-2025 14:16-0400 SaO2% (BldA) [Mass fraction] 95 % Tara Suppan OXYACETYLENE WELDER.CHIEF OPERATOR HYDROFORMER Work Phone: [facility] 02-27-2025 14:16-0400 Systolic blood pressure 116 mm[Hg] Tara Suppan OXYACETYLENE WELDER.CHIEF OPERATOR HYDROFORMER Work Phone: [facility] 02-20-2025 20:45-0400 Body temperature 100.9 [degF] Dr. Blake Wilcox MD Work Phone: [facility] 02-20-2025 20:45-0400 Diastolic blood pressure 72 mm[Hg] Dr. Blake Wilcox MD Work Phone: [facility] 02-20-2025 20:45-0400 Heart rate 73 /min Dr. Blake Wilcox MD Work Phone: [facility] 02-20-2025 20:45-0400 Respiratory rate 18 /min Dr. Blake Wilcox MD Work Phone: [facility] 02-20-2025 20:45-0400 SaO2% (BldA) [Mass fraction] 97 % Dr. Blkae Wilcox MD Work Phone: [facility] 02-20-2025 20:45-0400 Systolic blood pressure 126 mm[Hg] Dr. Blake Wilcox MD Work Phone: [facility] 02-20-2025 19:41-0400 Body height 177.[address] Blake Wilcox MD Work Phone: [facility] 02-20-2025 19:41-0400 Body mass index (BMI) [Ratio] 29.7 kg/m2 Dr. Blake Wilcox MD Work Phone: [facility] 02-20-2025 19:41-0400 Body weight 93.[address] Blake Wilcox MD Work Phone: [facility] 02-20-2025 16:23-0400 Body mass index (BMI) [Ratio] 30.57 kg/m2 Jose Pablo APRN.CHIEF OPERATOR HYDROFORMER Work Phone: [facility] 02-20-2025 16:23-0400 Body temperature 99.19 [degF] Jose Pablo APRN.CHIEF OPERATOR HYDROFORMER Work Phone: [facility] 02-20-2025 16:23-0400 Body weight 93.9 kg Jose Pablo APRN.CHIEF OPERATOR HYDROFORMER Work Phone: [facility] 02-20-2025 16:23-0400 Diastolic blood pressure 78 mm[Hg] Jose Pablo APRN.CHIEF OPERATOR HYDROFORMER Work Phone: [facility] 02-20-2025 16:23-0400 Heart rate 67 /min Jose Pablo APRN.CHIEF OPERATOR HYDROFORMER Work Phone: [facility] 02-20-2025 16:23-0400 Respiratory rate 18 /min Jose Pablo APRN.CHIEF OPERATOR HYDROFORMER Work Phone: [facility] 02-20-2025 16:23-0400 SaO2% (BldA) [Mass fraction] 97 % Jose Pablo APRN.CHIEF OPERATOR HYDROFORMER Work Phone: [facility] 02-20-2025 16:23-0400 Systolic blood pressure 120 mm[Hg] Jose Pablo APRN.CHIEF OPERATOR HYDROFORMER Work Phone: [facility] 02-19-2025 11:19-0400 Body height 177.[address] Blake Wilcox MD Work Phone: [facility] 02-19-2025 11:19-0400 Body mass index (BMI) [Ratio] 29.7 kg/m2 Dr. Blake Wilcox MD Work Phone: [facility] 02-19-2025 11:19-0400 Body weight 93.[address] Blake Wilcox MD Work Phone: 1(511)395-474132 [place] [address] 02-19-2025 11:19-0400 Diastolic blood pressure 73 mm[Hg] Dr. Blake Wilcox MD Work Phone: 6(005)745-940332 [place] [address] 02-19-2025 11:19-0400 Heart rate 62 /min Dr. Blake Wilcox MD Work Phone: 0(153)964-843632 [place] [address] 02-19-2025 11:19-0400 Respiratory rate 18 /min Dr. Blake Wilcox MD Work Phone: 4(341)396-684232 [place] [address] 02-19-2025 11:19-0400 SaO2% (BldA) [Mass fraction] 95 % Dr. Blake Wilcox MD Work Phone: 4(157)217-472732 [place] [address] 02-19-2025 11:19-0400 Systolic blood pressure 117 mm[Hg] Dr. Blake Wilcox MD Work Phone: [facility] 12-16-2024 13:45-0400 Body height 175.3 cm Blake Wilcox MD Work Phone: [facility] 12-16-2024 13:45-0400 Body mass index (BMI) [Ratio] 30.92 kg/m2 Blake Wilcox MD Work Phone: [facility] 12-16-2024 13:45-0400 Body weight 94.98 kg Blake Wilcox MD Work Phone: [facility] 12-16-2024 13:45-0400 Diastolic blood pressure 68 mm[Hg] Blake Wilcox MD Work Phone: [facility] 12-16-2024 13:45-0400 Heart rate 65 /min Blake Wilcox MD Work Phone: [facility] 12-16-2024 13:45-0400 SaO2% (BldA) [Mass fraction] 96 % Blake Wilcox MD Work Phone: [facility] 12-16-2024 13:45-0400 Systolic blood pressure 110 mm[Hg] Blake Wilcox MD Work Phone: [facility] 10-22-2024 13:14-0400 Body mass index (BMI) [Ratio] 29.4 kg/m2 Dr. Blake Wilcox MD Work Phone: [facility] 10-22-2024 13:14-0400 Body temperature 97.7 [degF] Dr. Blake Wilcox MD Work Phone: [facility] 10-22-2024 13:14-0400 Body weight 92.[address] Blake Wilcox MD Work Phone: [facility] 10-22-2024 13:14-0400 Diastolic blood pressure 73 mm[Hg] Dr. Blake Wilcox MD Work Phone: [facility] 10-22-2024 13:14-0400 Heart rate 62 /min Dr. Blake Wilcox MD Work Phone: [facility] 10-22-2024 13:14-0400 Respiratory rate 20 /min Dr. Blake Wilcox MD Work Phone: [facility] 10-22-2024 13:14-0400 SaO2% (BldA) [Mass fraction] 97 % Dr. Blake Wilcox MD Work Phone: [facility] 10-22-2024 13:14-0400 Systolic blood pressure 115 mm[Hg] Dr. Blake Wilcox MD Work Phone: [facility] 06-25-2024 12:59-0500 Body height 175.3 cm Pulm Wstr Work Phone: [facility] 06-25-2024 12:59-0500 Body mass index (BMI) [Ratio] 29.39 kg/m2 Pulm Wstr Work Phone: [facility] 06-25-2024 12:59-0500 Body weight 90.27 kg Pulm Wstr Work Phone: [facility] 06-25-2024 12:59-0500 Heart rate 68 /min Pulm Wstr Work Phone: [facility] 06-25-2024 12:59-0500 Respiratory rate 14 /min Pulm Wstr Work Phone: [facility] 06-25-2024 12:59-0500 SaO2% (BldA) [Mass fraction] 98 % Pulm Wstr Work Phone: [facility] 06-17-2024 10:42-0500 Body mass index (BMI) [Ratio] 29.24 kg/m2 Blake Wilcox MD Work Phone: [facility] 06-17-2024 10:42-0500 Body weight 92.44 kg Blake Wilcox MD Work Phone: [facility] 06-17-2024 10:42-0500 Diastolic blood pressure 82 mm[Hg] Blake Wilcox MD Work Phone: [facility] 06-17-2024 10:42-0500 Heart rate 59 /min Blake Wilcox MD Work Phone: [facility] 06-17-2024 10:42-0500 SaO2% (BldA) [Mass fraction] 95 % Blake Wilcox MD Work Phone: [facility] 06-17-2024 10:42-0500 Systolic blood pressure 128 mm[Hg] Blake Wilcox MD Work Phone: [facility] 06-10-2024 15:25-0500 Body mass index (BMI) [Ratio] 28.98 kg/m2 Charlie Tipton APRN.CHIEF OPERATOR HYDROFORMER Work Phone: [facility] 06-10-2024 15:25-0500 Body weight 91.63 kg Charlie Tipton APRN.CHIEF OPERATOR HYDROFORMER Work Phone: [facility] 06-10-2024 15:25-0500 Diastolic blood pressure 75 mm[Hg] Charlie Tipton APRN.CHIEF OPERATOR HYDROFORMER Work Phone: [facility] 06-10-2024 15:25-0500 Heart rate 80 /min Charlie Tipton OXYACETYLENE WELDER.CHIEF OPERATOR HYDROFORMER Work Phone: [facility] 06-10-2024 15:25-0500 Respiratory rate 16 /min Charlie Tipton OXYACETYLENE WELDER.CHIEF OPERATOR HYDROFORMER Work Phone: [facility] 06-10-2024 15:25-0500 SaO2% (BldA) [Mass fraction] 97 % Charlie Tipton OXYACETYLENE WELDER.CHIEF OPERATOR HYDROFORMER Work Phone: [facility] 06-10-2024 15:25-0500 Systolic blood pressure 119 mm[Hg] Charlie Tipton OXYACETYLENE WELDER.CHIEF OPERATOR HYDROFORMER Work Phone: [facility] 06-03-2024 14:19-0500 Body mass index (BMI) [Ratio] 29.51 kg/m2 Tray Nuñez MD Work Phone: [facility] 06-03-2024 14:19-0500 Body temperature 97.81 [degF] Tray Nuñez MD Work Phone: [facility] 06-03-2024 14:19-0500 Body weight 93.3 kg Tray Nuñez MD Work Phone: [facility] 06-03-2024 14:19-0500 Diastolic blood pressure 72 mm[Hg] Tray Nuñez MD Work Phone: [facility] 06-03-2024 14:19-0500 Heart rate 60 /min Tray Nuñez MD Work Phone: [facility] 06-03-2024 14:19-0500 Respiratory rate 16 /min Tray Nuñez MD Work Phone: [facility] 06-03-2024 14:19-0500 SaO2% (BldA) [Mass fraction] 97 % Tray Nuñez MD Work Phone: [facility] 06-03-2024 14:19-0500 Systolic blood pressure 122 mm[Hg] Tray Nuñez MD Work Phone: [facility] 04-30-2024 17:20-0400 Body mass index (BMI) [Ratio] 29.64 kg/m2 Carolyne Gillis OXYACETYLENE WELDER.CHIEF OPERATOR HYDROFORMER Work Phone: [facility] 04-30-2024 17:20-0400 Body temperature 98.1 [degF] Carolyne Gillis OXYACETYLENE WELDER.CHIEF OPERATOR HYDROFORMER Work Phone: [facility] 04-30-2024 17:20-0400 Body weight 93.7 kg Carolyne Gillis OXYACETYLENE WELDER.CHIEF OPERATOR HYDROFORMER Work Phone: [facility] 04-30-2024 17:20-0400 Diastolic blood pressure 72 mm[Hg] Carolyne Gillis OXYACETYLENE WELDER.CHIEF OPERATOR HYDROFORMER Work Phone: [facility] 04-30-2024 17:20-0400 Heart rate 67 /min Carolyne Gillis OXYACETYLENE WELDER.CHIEF OPERATOR HYDROFORMER Work Phone: [facility] 04-30-2024 17:20-0400 Respiratory rate 20 /min Carolyne Gillis OXYACETYLENE WELDER.CHIEF OPERATOR HYDROFORMER Work Phone: [facility] 04-30-2024 17:20-0400 SaO2% (BldA) [Mass fraction] 100 % Carolyne Gillis OXYACETYLENE WELDER.CHIEF OPERATOR HYDROFORMER Work Phone: [facility] 04-30-2024 17:20-0400 Systolic blood pressure 113 mm[Hg] Carolyne Gillis OXYACETYLENE WELDER.CHIEF OPERATOR HYDROFORMER Work Phone: [facility] 12-11-2023 10:02-0400 Body mass index (BMI) [Ratio] 29.27 kg/m2 Blake Wilcox MD Work Phone: [facility] 12-11-2023 10:02-0400 Body weight 92.53 kg Blake Wilcox MD Work Phone: [facility] 12-11-2023 10:02-0400 Diastolic blood pressure 66 mm[Hg] Blake Wilcox MD Work Phone: [facility] 12-11-2023 10:02-0400 Heart rate 63 /min Blake Wilcox MD Work Phone: [facility] 12-11-2023 10:02-0400 SaO2% (BldA) [Mass fraction] 96 % Blake Wilcox MD Work Phone: [facility] 12-11-2023 10:02-0400 Systolic blood pressure 103 mm[Hg] Blake Wilcox MD Work Phone: [facility] 09-22-2023 09:43-0500 Body height 177.8 cm Blake Wilcox MD Work Phone: [facility] 09-22-2023 09:43-0500 Body weight 94.35 kg Blake Wilcox MD Work Phone: [facility] 09-22-2023 09:43-0500 Diastolic blood pressure 62 mm[Hg] Blake Wilcox MD Work Phone: [facility] 09-22-2023 09:43-0500 Heart rate 72 /min Blake Wilcox MD Work Phone: [facility] 09-22-2023 09:43-0500 SaO2% (BldA) [Mass fraction] 96 % Blake Wilcox MD Work Phone: [facility] 09-22-2023 09:43-0500 Systolic blood pressure 102 mm[Hg] Blake Wilcox MD Work Phone: [facility] 09-20-2023 00:30-0500 Body temperature 97.8 [degF] Dr. Blake Wilcox Work Phone: [facility] 09-20-2023 00:30-0500 Diastolic blood pressure 89 mm[Hg] Dr. Blake Wilcox Work Phone: [facility] 09-20-2023 00:30-0500 Heart rate 87 /min Dr. Blake Wilcox Work Phone: [facility] 09-20-2023 00:30-0500 Respiratory rate 17 /min Dr. Blake Wilcox Work Phone: [facility] 09-20-2023 00:30-0500 SaO2% (BldA) [Mass fraction] 97 % Dr. Blake Wilcox Work Phone: [facility] 09-20-2023 00:30-0500 Systolic blood pressure 138 mm[Hg] Dr. Blake Wilcox Work Phone: [facility] 09-19-2023 21:32-0500 Body height 175.[address] Blake Wilcox Work Phone: [facility] 09-19-2023 21:32-0500 Body mass index (BMI) [Ratio] 30.9 kg/m2 Dr. Blake Wilcox Work Phone: [facility] 09-19-2023 21:32-0500 Body weight 94.[address] Blake Wilcox Work Phone: 5(825)[phone] [place] [address] 07-05-2023 18:09-0500 Body temperature 100.51 [degF] Tray Nuñez MD Work Phone: [facility] 07-05-2023 18:09-0500 Body weight 93.71 kg Tray Nuñez MD Work Phone: [facility] 07-05-2023 18:09-0500 Diastolic blood pressure 82 mm[Hg] Tray Nuñez MD Work Phone: [facility] 07-05-2023 18:09-0500 Heart rate 79 /min Tray Nuñez MD Work Phone: [facility] 07-05-2023 18:09-0500 Respiratory rate 21 /min Tray Nuñez MD Work Phone: [facility] 07-05-2023 18:09-0500 SaO2% (BldA) [Mass fraction] 96 % Tray Nuñez MD Work Phone: [facility] 07-05-2023 18:09-0500 Systolic blood pressure 124 mm[Hg] Tray Nuñez MD Work Phone: [facility] 06-15-2023 07:51-0500 Body height 177.[address] Blake Wilcox Work Phone: [facility] 06-15-2023 07:51-0500 Body mass index (BMI) [Ratio] 29 kg/m2 Dr. Blake Wilcox Work Phone: [facility] 06-15-2023 07:51-0500 Body temperature 97.1 [degF] Dr. Blake Wilcox Work Phone: [facility] 06-15-2023 07:51-0500 Body weight 91.[address] Blake Wilcox Work Phone: [facility] 06-15-2023 07:51-0500 Diastolic blood pressure 70 mm[Hg] Dr. Blake Wilcox Work Phone: 1(823)020-475832 [place] [address] 06-15-2023 07:51-0500 Heart rate 71 /min Dr. Blake Wilcox Work Phone: [facility] 06-15-2023 07:51-0500 SaO2% (BldA) [Mass fraction] 95 % Dr. Blake Wilcox Work Phone: [facility] 06-15-2023 07:51-0500 Systolic blood pressure 113 mm[Hg] Dr. Blake Wilcox Work Phone: [facility] 03-20-2023 13:35-0400 Body weight 92.53 kg Blake Wiclox MD Work Phone: [facility] 03-20-2023 13:35-0400 Diastolic blood pressure 62 mm[Hg] Blake Wilcox MD Work Phone: [facility] 03-20-2023 13:35-0400 Heart rate 61 /min Blake Wilcox MD Work Phone: [facility] 03-20-2023 13:35-0400 SaO2% (BldA) [Mass fraction] 95 % Blake Wilcox MD Work Phone: [facility] 03-20-2023 13:35-0400 Systolic blood pressure 100 mm[Hg] Blake Wilcox MD Work Phone: [facility] 02-24-2023 14:58-0400 Body height 177.[address] Blake Wilcox Work Phone: 6(725)897-846932 [place] [address] 02-24-2023 14:55-0400 Body mass index (BMI) [Ratio] 29.2 kg/m2 Dr. Blake Wilcox Work Phone: 0(354)118-138732 [place] [address] 02-24-2023 14:55-0400 Body weight 92.[address] Blake Wilcox Work Phone: 1(814)801-789532 [place] [address] 02-24-2023 14:55-0400 Diastolic blood pressure 72 mm[Hg] Dr. Blake Wilcox Work Phone: 3(596)539-913632 [place] [address] 02-24-2023 14:55-0400 Heart rate 68 /min Dr. Blake Wilcox Work Phone: 1(757)862-015732 [place] [address] 02-24-2023 14:55-0400 Respiratory rate 18 /min Dr. Blake Wilcox Work Phone: 7(185)930-658832 [place] [address] 02-24-2023 14:55-0400 SaO2% (BldA) [Mass fraction] 94 % Dr. Blake Wilcox Work Phone: 2(979)417-411132 [place] [address] 02-24-2023 14:55-0400 Systolic blood pressure 116 mm[Hg] Dr. Blake Wilcox Work Phone: 8(438)885-762932 [place] [address] 01-09-2023 13:00-0400 Body mass index (BMI) [Ratio] 29.2 kg/m2 Dr. Blake Wilcox Work Phone: 8(636)874-056632 [place] [address] 01-09-2023 13:00-0400 Body weight 92.[address] Blake Wilcox Work Phone: 1(515)644-594232 [place] [address] 01-09-2023 13:00-0400 Diastolic blood pressure 74 mm[Hg] Dr. Blake Wilcox Work Phone: 2(380)828-108832 [place] [address] 01-09-2023 13:00-0400 Heart rate 57 /min Dr. Blake Wilcox Work Phone: 5(670)099-575032 [place] [address] 01-09-2023 13:00-0400 Respiratory rate 16 /min Dr. Blake Wilcox Work Phone: 6(554)750-329632 [place] [address] 01-09-2023 13:00-0400 SaO2% (BldA) [Mass fraction] 97 % Dr. Blake Wilcox Work Phone: 2(598)972-154232 [place] [address] 01-09-2023 13:00-0400 Systolic blood pressure 122 mm[Hg] Dr. Blake Wilcox Work Phone: 8(313)032-288132 [place] [address] 12-16-2022 17:29-0400 Body mass index (BMI) [Ratio] 23.8 kg/m2 Dr. Blake Wilcox Work Phone: 7(788)600-512732 [place] [address] 12-16-2022 17:29-0400 Body temperature 98 [degF] Dr. Blake Wilcox Work Phone: 0(615)745-945832 [place] [address] 12-16-2022 17:29-0400 Body weight 75.[address] Blake Wilcox Work Phone: 6(186)633-212432 [place] [address] 12-16-2022 17:29-0400 Diastolic blood pressure 87 mm[Hg] Dr. Blake Wilcox Work Phone: 1(059)172-820732 [place] [address] 12-16-2022 17:29-0400 Heart rate 74 /min Dr. Blake Wilcox Work Phone: 5(680)063-405432 [place] [address] 12-16-2022 17:29-0400 Respiratory rate 16 /min Dr. Blake Wilcox Work Phone: 3(307)435-695032 [place] [address] 12-16-2022 17:29-0400 SaO2% (BldA) [Mass fraction] 97 % Dr. Blake Wilcox Work Phone: 7(221)100-507232 [place] [address] 12-16-2022 17:29-0400 Systolic blood pressure 130 mm[Hg] Dr. Blake Wilcox Work Phone: 0(296)667-410932 [place] [address] 12-08-2022 13:03-0400 Body mass index (BMI) [Ratio] 29.1 kg/m2 Dr. Blake Wilcox Work Phone: 2(120)525-308432 [place] [address] 12-08-2022 13:03-0400 Body temperature 98.4 [degF] Dr. Blake Wilcox Work Phone: 5(775)629-632132 [place] [address] 12-08-2022 13:03-0400 Body weight 92.[address] Blake Wilcox Work Phone: [facility] 12-08-2022 13:03-0400 Diastolic blood pressure 80 mm[Hg] Dr. Blake Wilcox Work Phone: [facility] 12-08-2022 13:03-0400 Heart rate 65 /min Dr. Blake Wilcox Work Phone: [facility] 12-08-2022 13:03-0400 Respiratory rate 18 /min Dr. Blake Wilcox Work Phone: [facility] 12-08-2022 13:03-0400 SaO2% (BldA) [Mass fraction] 94 % Dr. Blake Wilcox Work Phone: [facility] 12-08-2022 13:03-0400 Systolic blood pressure 120 mm[Hg] Dr. Blake Wilcox Work Phone: [facility] 10-29-2022 01:49-0400 Body weight 92.[address] Carl Franco Work Phone: [facility] 10-06-2022 11:28-0500 Body temperature 97.7 [degF] Blake Wilcox MD Work Phone: [facility] 10-06-2022 11:28-0500 Body weight 92.08 kg Blake Wilcox MD Work Phone: [facility] 10-06-2022 11:28-0500 Diastolic blood pressure 62 mm[Hg] Blake Wilcox MD Work Phone: [facility] 10-06-2022 11:28-0500 Heart rate 58 /min Blake Wilcox MD Work Phone: [facility] 10-06-2022 11:28-0500 SaO2% (BldA) [Mass fraction] 96 % Blake Wilcox MD Work Phone: [facility] 10-06-2022 11:28-0500 Systolic blood pressure 112 mm[Hg] Blake Wilcox MD Work Phone: [facility] 03-08-2023 15:19-0500 Body height 177.[address] Carl Franco Work Phone: [facility] 10-05-2022 15:19-0500 Body weight 92.[address] Carl Franco Work Phone: [facility] 09-26-2022 13:46-0500 Body height 177.[address] Carl Franco Work Phone: [facility] 09-26-2022 13:46-0500 Body mass index (BMI) [Ratio] 29.4 kg/m2 Dr. Carl Franco Work Phone: [facility] 09-26-2022 13:46-0500 Body weight 92.[address] Carl Franco Work Phone: [facility] 09-19-2022 17:09-0500 Body height 177.8 cm Blake Wilcox MD Work Phone: [facility] 09-19-2022 17:09-0500 Body weight 96.16 kg Blake Wilcox MD Work Phone: [facility] 09-19-2022 17:09-0500 Diastolic blood pressure 76 mm[Hg] Blake Wilcox MD Work Phone: [facility] 09-19-2022 17:09-0500 Heart rate 64 /min Blake Wilcox MD Work Phone: [facility] 09-19-2022 17:09-0500 SaO2% (BldA) [Mass fraction] 96 % Blake Wilcox MD Work Phone: [facility] 09-19-2022 17:09-0500 Systolic blood pressure 106 mm[Hg] Blake Wilcox MD Work Phone: [facility] 09-15-2022 14:56-0500 Heart rate 52 /min Dr. Carl Franco Work Phone: [facility] 09-15-2022 14:56-0500 SaO2% (BldA) [Mass fraction] 97 % Dr. Carl Franco Work Phone: 3(308)316-743732 [place] [address] 09-15-2022 08:14-0500 Body mass index (BMI) [Ratio] 29.4 kg/m2 Dr. Carl Franco Work Phone: 4(708)923-922232 [place] [address] 09-15-2022 08:14-0500 Body temperature 97.2 [degF] Dr. Carl Franco Work Phone: 0(884)685-394632 [place] [address] 09-15-2022 08:14-0500 Body weight 92.[address] Carl Franco Work Phone: 7(680)550-707332 [place] [address] 09-15-2022 08:14-0500 Diastolic blood pressure 78 mm[Hg] Dr. Carl Franco Work Phone: 1(078)247-876932 [place] [address] 09-15-2022 08:14-0500 Respiratory rate 18 /min Dr. Carl Franco Work Phone: 5(356)888-054132 [place] [address] 09-15-2022 08:14-0500 Systolic blood pressure 129 mm[Hg] Dr. Carl Franco Work Phone: 8(477)047-604232 [place] [address] 09-07-2022 11:15-0500 Body height 177.[address] Carl Franco Work Phone: 5(038)995-349132 [place] [address] 09-07-2022 11:15-0500 Body weight 92.[address] Carl Franco Work Phone: 6(923)602-146032 [place] [address] 08-08-2022 14:30-0500 Body height 177.[address] Carl Franco Work Phone: 8(203)794-579532 [place] [address] 08-08-2022 14:30-0500 Body weight 95.[address] Carl Franco Work Phone: 1(144)079-713532 [place] [address] 08-08-2022 14:14-0500 Body mass index (BMI) [Ratio] 30.3 kg/m2 Dr. Carl Franco Work Phone: 3(593)951-029532 [place] [address] 08-08-2022 14:14-0500 Heart rate 67 /min Dr. Carl Franco Work Phone: [facility] 08-08-2022 14:14-0500 SaO2% (BldA) [Mass fraction] 97 % Dr. Carl Franco Work Phone: [facility] 08-08-2022 09:24-0500 Body mass index (BMI) [Ratio] 29.2 kg/m2 Dr. Carl Franco Work Phone: [facility] 08-08-2022 09:24-0500 Body weight 92.[address] Carl Franco Work Phone: [facility] 08-08-2022 09:24-0500 Diastolic blood pressure 79 mm[Hg] Dr. Carl Franco Work Phone: [facility] 08-08-2022 09:24-0500 Heart rate 79 /min Dr. Carl Franco Work Phone: [facility] 08-08-2022 09:24-0500 Respiratory rate 18 /min Dr. Carl Franco Work Phone: [facility] 08-08-2022 09:24-0500 SaO2% (BldA) [Mass fraction] 98 % Dr. Carl Franco Work Phone: [facility] 08-08-2022 09:24-0500 Systolic blood pressure 120 mm[Hg] Dr. Carl Franco Work Phone: [facility] 08-05-2022 08:43-0500 Body height 177.8 cm Blake Wilcox MD Work Phone: [facility] 08-05-2022 08:43-0500 Body weight 92.99 kg Blake Wilcox MD Work Phone: [facility] 08-05-2022 08:43-0500 Diastolic blood pressure 76 mm[Hg] Balke Wilcox MD Work Phone: [facility] 08-05-2022 08:43-0500 Heart rate 73 /min Blake Wilcox MD Work Phone: [facility] 08-05-2022 08:43-0500 SaO2% (BldA) [Mass fraction] 97 % Blake Wilcox MD Work Phone: [facility] 08-05-2022 08:43-0500 Systolic blood pressure 106 mm[Hg] Blake Wilcox MD Work Phone: [facility] 07-30-2022 12:31-0500 Body temperature 97.7 [degF] Clarisse Praisler-Wood OXYACETYLENE WELDER.CHIEF OPERATOR HYDROFORMER Work Phone: [facility] 07-30-2022 12:31-0500 Body weight 93.26 kg Clarisse Praisler-Wood OXYACETYLENE WELDER.CHIEF OPERATOR HYDROFORMER Work Phone: [facility] 07-30-2022 12:31-0500 Diastolic blood pressure 78 mm[Hg] Clarisse Praisler-Wood OXYACETYLENE WELDER.CHIEF OPERATOR HYDROFORMER Work Phone: [facility] 07-30-2022 12:31-0500 Heart rate 75 /min Clarisse Praisler-Wood OXYACETYLENE WELDER.CHIEF OPERATOR HYDROFORMER Work Phone: [facility] 07-30-2022 12:31-0500 Respiratory rate 18 /min Clarisse Praisler-Wood OXYACETYLENE WELDER.CHIEF OPERATOR HYDROFORMER Work Phone: [facility] 07-30-2022 12:31-0500 SaO2% (BldA) [Mass fraction] 98 % Clarisse Praisler-Wood OXYACETYLENE WELDER.CHIEF OPERATOR HYDROFORMER Work Phone: [facility] 07-30-2022 12:31-0500 Systolic blood pressure 110 mm[Hg] Clarisse Praisler-Wood OXYACETYLENE WELDER.CHIEF OPERATOR HYDROFORMER Work Phone: [facility] 07-27-2022 09:53-0500 Body weight 93.89 kg Yousif Franco MD Work Phone: [facility] 07-27-2022 09:53-0500 Diastolic blood pressure 70 mm[Hg] Yousif Franco MD Work Phone: [facility] 07-27-2022 09:53-0500 Heart rate 85 /min Yousif Franco MD Work Phone: [facility] 07-27-2022 09:53-0500 Respiratory rate 16 /min Yousif Franco MD Work Phone: [facility] 07-27-2022 09:53-0500 SaO2% (BldA) [Mass fraction] 98 % Yousif Franco MD Work Phone: [facility] 07-27-2022 09:53-0500 Systolic blood pressure 112 mm[Hg] Yousif Franco MD Work Phone: [facility] 07-19-2022 10:00-0500 Body temperature 98.1 [degF] Dr. Carl Franco Work Phone: [facility] 07-19-2022 10:00-0500 Diastolic blood pressure 90 mm[Hg] Dr. Carl Franco Work Phone: 3(323)147-072046 [place] [address] 07-19-2022 10:00-0500 Heart rate 85 /min Dr. Carl Franco Work Phone: [facility] 07-19-2022 10:00-0500 Respiratory rate 16 /min Dr. Carl Franco Work Phone: [facility] 07-19-2022 10:00-0500 SaO2% (BldA) [Mass fraction] 96 % Dr. Carl Franco Work Phone: [facility] 07-19-2022 10:00-0500 Systolic blood pressure 134 mm[Hg] Dr. Carl Franco Work Phone: [facility] 07-19-2022 05:25-0500 Body weight 95.[address] Carl Franco Work Phone: [facility] 07-16-2022 22:48-0500 Body mass index (BMI) [Ratio] 30 kg/m2 Dr. Carl Franco Work Phone: [facility] 07-16-2022 22:07-0500 Body temperature 98.3 [degF] [facility] Work Phone: 07-16-2022 22:07-0500 Diastolic blood pressure 86 mm[Hg] [facility] Work Phone: 07-16-2022 22:07-0500 Heart rate 64 /min [facility] Work Phone: 07-16-2022 22:07-0500 Respiratory rate 16 /min [facility] Work Phone: 07-16-2022 22:07-0500 SaO2% (BldA) [Mass fraction] 98 % [facility] Work Phone: 07-16-2022 22:07-0500 Systolic blood pressure 159 mm[Hg] [facility] Work Phone: 07-16-2022 17:56-0500 Body height 175.[address] [facility] Work Phone: 07-16-2022 17:56-0500 Body mass index (BMI) [Ratio] 31.3 kg/m2 [facility] Work Phone: 07-16-2022 17:56-0500 Body weight 96.[address] [facility] Work Phone: 05-03-2022 14:17-0400 Body height 177.8 cm Christopher James MD Work Phone: [facility] 05-03-2022 14:17-0400 Body temperature 97.9 [degF] Christopher James MD Work Phone: [facility] 05-03-2022 14:17-0400 Body weight 98.7 kg Christopher James MD Work Phone: [facility] 05-03-2022 14:17-0400 Diastolic blood pressure 82 mm[Hg] Christopher James MD Work Phone: [facility] 05-03-2022 14:17-0400 Heart rate 81 /min Christopher James MD Work Phone: [facility] 05-03-2022 14:17-0400 SaO2% (BldA) [Mass fraction] 98 % Christopher James MD Work Phone: [facility] 05-03-2022 14:17-0400 Systolic blood pressure 126 mm[Hg] Christopher James MD Work Phone: [facility] 05-02-2022 08:48-0400 Body weight 96.44 kg Josefina Podlogar OXYACETYLENE WELDER.CHIEF OPERATOR HYDROFORMER Work Phone: [facility] 05-02-2022 08:48-0400 Diastolic blood pressure 86 mm[Hg] Josefina Podlogar OXYACETYLENE WELDER.CHIEF OPERATOR HYDROFORMER Work Phone: [facility] 05-02-2022 08:48-0400 Heart rate 61 /min Josefina Podlogar OXYACETYLENE WELDER.CHIEF OPERATOR HYDROFORMER Work Phone: [facility] 05-02-2022 08:48-0400 Respiratory rate 16 /min Josefina Podlogar OXYACETYLENE WELDER.CHIEF OPERATOR HYDROFORMER Work Phone: [facility] 05-02-2022 08:48-0400 SaO2% (BldA) [Mass fraction] 96 % Josefina Podlogar OXYACETYLENE WELDER.CHIEF OPERATOR HYDROFORMER Work Phone: [facility] 05-02-2022 08:48-0400 Systolic blood pressure 126 mm[Hg] Josefina Podlogar OXYACETYLENE WELDER.CHIEF OPERATOR HYDROFORMER Work Phone: [facility] 02-07-2022 09:07-0400 Body weight 93.89 kg Josefina Podlogar OXYACETYLENE WELDER.CHIEF OPERATOR HYDROFORMER Work Phone: [facility] 02-07-2022 09:07-0400 Diastolic blood pressure 80 mm[Hg] Josefina Podlogar OXYACETYLENE WELDER.CHIEF OPERATOR HYDROFORMER Work Phone: [facility] 02-07-2022 09:07-0400 Heart rate 65 /min Josefina Podlogar OXYACETYLENE WELDER.CHIEF OPERATOR HYDROFORMER Work Phone: [facility] 02-07-2022 09:07-0400 Respiratory rate 16 /min Josefina Podlogar OXYACETYLENE WELDER.CHIEF OPERATOR HYDROFORMER Work Phone: [facility] 02-07-2022 09:07-0400 SaO2% (BldA) [Mass fraction] 97 % Josefina Stokes OXYACETYLENE WELDER.CHIEF OPERATOR HYDROFORMER Work Phone: [facility] 02-07-2022 09:07-0400 Systolic blood pressure 124 mm[Hg] Josefina Stokes APRN.CHIEF OPERATOR HYDROFORMER Work Phone: [facility] 11-15-2021 12:01-0400 Body temperature 97.11 [degF] Johanny Bogner PA-C Work Phone: [facility] 11-15-2021 12:01-0400 Body weight 97.07 kg Johanny Bogner PA-C Work Phone: [facility] 11-15-2021 12:01-0400 Diastolic blood pressure 70 mm[Hg] Johanny Bogner PA-C Work Phone: [facility] 11-15-2021 12:01-0400 Heart rate 76 /min Johanny Bogner PA-C Work Phone: [facility] 11-15-2021 12:01-0400 Respiratory rate 16 /min Johanny Bogner PA-C Work Phone: [facility] 11-15-2021 12:01-0400 SaO2% (BldA) [Mass fraction] 97 % Johanny Bogner PA-C Work Phone: [facility] 11-15-2021 12:01-0400 Systolic blood pressure 118 mm[Hg] Johanny Bogner PA-C Work Phone: [facility] Encounters Encounter Date Encounter Type Care Provider Facility Start: 04-04-2025 ambulatory Blake Wilcox Facility:[facility] Start: 03-13-2025 End: 03-18-2025 Refill Blake Wilcox MD Work Phone: [facility] Comment on above: Refill Request Refill Request; Medi cation Problem (Needs only a short term of Losartan sent to local pharmacy) Start: 02-27-2025 End: 02-27-2025 Office outpatient visit 15 minutes Tara Charles APRN.CHIEF OPERATOR HYDROFORMER Work Phone: [facility] [place] Comment on above: Acute diffuse otitis externa of right ear (Primary Dx); Screening for depression Start: 02-27-2025 End: 02-27-2025 ambulatory TARA CHARLES Facility:[facility] Start: 02-21-2025 End: 02-21-2025 ambulatory Kathy Chávez RN Work Phone: Emergency Nurse Management Start: 02-20-2025 End: 02-20-2025 Emergency department patient visit Dr. Blake Wilcox MD Work Phone: -Emergency Department Work Phone: Start: 02-20-2025 End: 02-20-2025 Patient encounter procedure Jose Pablo APRN.CHIEF OPERATOR HYDROFORMER Work Phone: [facility] [place] Comment on above: Cellulitis of skin ( Primary Dx); Cellulitis of right external ear Start: 02-20-2025 End: 02-20-2025 ambulatory BLAKE WILCOX Facility:[facility] Start: 02-19-2025 End: 02-19-[address] Slade Carey MD -[facility] Work Phone: Start: 02-19-2025 End: 02-19-[address] Blake Wilcox MD Work Phone: -[facility] Start: 01-15-2025 End: 03-17-2025 Follow-up encounter Blake Wilcox MD Work Phone: [facility] [place] [facility] Start: 01-15-2025 End: 01-15-2025 Telephone encounter Blake Wilcox MD Work Phone: [facility] Comment on above: Results Start: 12-30-2024 End: 03-01-2025 Follow-up encounter Blake Wilcox MD Work Phone: [facility] Start: 12-30-2024 End: 12-30-2024 ambulatory BLAKE WILCOX Facility:[facility] Start: 12-18-2024 End: 02-17-2025 Follow-up encounter Blake Wilcox MD Work Phone: [facility] [place] Start: 12-17-2024 End: 12-17-2024 ambulatory BLAKE WILCOX Facility:[facility] Start: 12-16-2024 End: 12-16-2024 Patient encounter procedure Blake Wilcox MD Work Phone: [facility] [place] Comment on above: 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, unspecified vessel or lesion type (Primary Dx); Mixed hyperlipidemia; NOE (obstructive sleep apnea); Gastroesophageal reflux disease without esophagitis; Generalized anxiety disorder; Bilateral carotid artery stenosis; Nocturia; Encounter for immunization; Obesity, Class I, BMI 30-34.9; Lightheaded; Bradycardia Start: 12-16-2024 End: 12-16-2024 ambulatory BLAKE WILCOX Facility:[facility] Start: 10-22-2024 End: 10-22-2024 Patient encounter procedure [employer] SAL[employer] ASSISTANT Laureen Chopra [facility] Work Phone: Start: 10-22-2024 End: 10-22-2024 ambulatory [facility] Facility:[facility] Start: 08-09-2024 ambulatory [place] Facility:[facility] Start: 08-08-2024 ambulatory [facility] Start: 08-08-2024 End: 08-08-2024 ambulatory [place] Facility:[facility] Start: 07-22-2024 End: 07-22-2024 ambulatory [facility] Facility:[facility] Start: 07-22-2024 End: 07-22-2024 ambulatory [place] Facility:[facility] Start: 07-15-2024 End: 07-15-2024 ambulatory [facility] Facility:[facility] Start: 06-26-2024 End: 06-26-2024 Telephone encounter Blake Wilcox MD Work Phone: [facility] [place] Comment on above: Results; spirometery Start: 06-25-2024 End: 06-25-2024 ambulatory [facility] Work Phone: [facility] Comment on above: Spirometry Start: 06-25-2024 End: 06-25-2024 Patient encounter procedure [facility] Work Phone: [facility] Start: 06-17-2024 End: 06-17-2024 Subsequent hospital visit by physician [facility] Work Phone: Radiology Comment on above: Chronic pain of left knee [M25.562, G89.29] Start: 06-17-2024 End: 06-17-2024 ambulatory BLAKE WILCOX Facility:[facility] Start: 06-17-2024 End: 06-17-2024 Patient encounter procedure Blake Wilcox MD Work Phone: [facility] [place] Comment on above: 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, unspecified vessel or lesion type (Primary Dx); Nocturia; Mixed hyperlipidemia; NOE (obstructive sleep apnea); Gastroesophageal reflux disease without esophagitis; Generalized anxiety disorder; Bilateral carotid artery stenosis; Nasal congestion; Cough, unspecified type; Chronic pain of left knee; Screening for prostate cancer Start: 06-10-2024 End: 06-10-2024 Subsequent hospital visit by physician [facility] Work Phone: Radiology Comment on above: URI with cough and c ongestion [J06.9] Start: 06-10-2024 End: 06-10-2024 Patient encounter procedure Charlie Tipton APRN.CNP Work Phone: [facility] [place] Comment on above: URI with cough and c ongestion (Primary Dx) Start: 06-10-2024 End: 06-10-2024 ambulatory CHARLIE TIPTON Facility:[facility] Start: 06-10-2024 End: 06-10-2024 Telephone encounter Blake Wilcox MD Work Phone: [facility] [place] Comment on above: Future Appointment Results Start: 06-03-2024 End: 06-03-2024 ambulatory BLAKE WILCOX Facility:[facility] Start: 06-03-2024 End: 06-03-2024 Office outpatient visit 15 minutes Tray Nuñez MD Work Phone: [facility] Comment on above: Nasal congestion (Pr imary Dx); Chronic cough Start: 05-01-2024 End: 05-01-2024 Telephone encounter Christina Holly APRN.CHIEF OPERATOR HYDROFORMER Work Phone: [facility] Comment on above: Results Start: 04-30-2024 End: 04-30-2024 Subsequent hospital visit by physician [facility] Work Phone: Radiology Comment on above: URI, acute [J06.9] Start: 04-30-2024 End: 04-30-2024 ambulatory BLAKE JERI Facility:[facility] Start: 04-30-2024 End: 04-30-2024 Patient encounter procedure Carolyne Sullivannery MALIK.CHIEF OPERATOR HYDROFORMER Work Phone: [facility] Comment on above: URI, acute (Primary Dx); Acute cough Start: 04-22-2024 End: 04-22-2024 ambulatory [facility] Facility:[facility] Start: 04-15-2024 End: 04-15-2024 ambulatory [facility] Start: 04-12-2024 End: 04-12-2024 ambulatory [facility] Facility:[facility] Start: 01-26-2024 ambulatory Blake Wilcox MD Work Phone: [facility] [place] Comment on above: Flomax Start: 12-11-2023 End: 12-11-2023 Patient encounter procedure Blake Wilcox MD Work Phone: [facility] [place] Comment on above: 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, unspecified vessel or lesion type (Primary Dx); Encounter for immunization; NOE (obstructive sleep apnea); Gastroesophageal reflux disease without esophagitis; Hypogonadism in male; Generalized anxiety disorder; Bilateral carotid artery stenosis; Compression deformity of vertebra; DDD (degenerative disc disease), lumbar; History of iron deficiency Start: 11-08-2023 Refill Blake Wilcox MD Work Phone: [facility] [place] Comment on above: Refill Request Start: 09-22-2023 End: 09-22-2023 Patient encounter procedure Blake Wilcox MD Work Phone: [facility] [place] Comment on above: Compression deformit y of vertebra (Primary Dx); Closed fracture of scapula with routine healing, unspecified laterality, unspecified part of scapula, subsequent encounter; Closed head injury, subsequent encounter Start: 09-20-2023 Telephone encounter Blake Wilcox MD Work Phone: [facility] Comment on above: Appointment Start: 09-19-2023 End: 09-20-2023 Emergency department patient visit Dr. Blake Wilcox Work Phone: [facility]gency [facility] Work Phone: Start: 07-05-2023 End: 07-05-2023 Patient encounter procedure Tray Nuñez MD Work Phone: [facility] Comment on above: Acute COVID-19 (Prim momo Dx); Coronary artery disease involving timbi-sha shoshone heart without angina pectoris, unspecified vessel or lesion type Start: 07-01-2023 Refill M Peter Fuentes on PA-C Work Phone: [facility] Comment on above: Refill Request Start: 06-29-2023 End: 06-29-[address] Blake Wilcox Work Phone: [facility] Work Phone: Start: 06-29-2023 End: 06-29-[address] Blake Wilcox Work Phone: [facility] Work Phone: Start: 06-15-2023 End: 06-15-[address] Blake Wilcox Work Phone: [facility] Work Phone: Start: 06-03-2023 End: 06-03-2023 ambulatory Immunization Clinic Nurse [place] Work Phone: [facility] Comment on above: Encounter for immuni zation (Primary Dx) Start: 05-04-2023 End: 05-04-[address] Blake Wilcox Work Phone: [facility] Therapy Work Phone: Start: 03-23-2023 Telephone encounter Blake Wilcox MD Work Phone: [facility] Comment on above: Results Start: 03-20-2023 End: 03-20-2023 [facility] Comment on above: Chronic pain of left knee [M25.562, G89.29] Start: 03-20-2023 End: 03-20-2023 Patient encounter procedure Blake Wilcox MD Work Phone: [facility] Comment on above: 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, unspecified vessel or lesion type (Primary Dx); Bilateral carotid artery stenosis; Stress and adjustment reaction; Mixed hyperlipidemia; NOE (obstructive sleep apnea); Hyperhidrosis; Hypogonadism in male; Chronic pain of left knee; Dermatitis Start: 02-27-2023 Chart abstracting Blake Lowe MD Work Phone: [facility] Start: 02-24-2023 End: 02-24-[address] Blake Wilcox Work Phone: [facility] Work Phone: Start: 02-24-2023 End: 02-24-[address] Blake Wilcox Work Phone: [facility] Work Phone: Start: 02-11-2023 Refill Blake Wilcox MD Work Phone: [facility] Comment on above: Refill Request Start: 01-09-2023 End: 01-09-[address] Blake Wilcox Work Phone: [facility] Work Phone: Start: 12-16-2022 End: 12-16-2022 Emergency department patient visit Dr. Blake Wilcox Work Phone: [facility]Emergency Department Work Phone: Start: 12-10-2022 Refill Blake Wilcox MD Work Phone: [facility] Comment on above: Refill Request Start: 12-08-2022 End: 12-08-[address] Blake Wilcox Work Phone: [facility] Work Phone: Start: 11-07-2022 End: 11-27-[address] Carl Franco Work Phone: [facility] Work Phone: Start: 11-07-2022 End: 11-27-[address] Carl Franco Work Phone: [facility] Start: 10-28-2022 End: 10-28-[address] Carl Franco Work Phone: [facility] Work Phone: Start: 10-28-2022 End: 10-28-[address] Carl Franco Work Phone: [facility] Start: 10-06-2022 End: 10-06-2022 Patient encounter procedure Blake Wilcox MD Work Phone: [facility] Comment on above: URI, acute (Primary Dx); Cough, unspecified type Start: 10-05-2022 ambulatory Blake Wilcox MD Work Phone: [facility] Start: 10-05-2022 Patient encounter procedure Blake Wilcox MD Work Phone: [facility] Comment on above: Appointment confirme d Start: 09-26-2022 End: 09-26-[address] Carl Franco Work Phone: [facility] Start: 09-26-2022 End: 09-27-[address] Carl Franco Work Phone: [facility] Work Phone: Start: 09-26-2022 End: 09-27-[address] Carl Franco Work Phone: [facility] Start: 09-22-2022 Non-patient / Non-visit Dr. Charles Franco Work Phone: [facility] Start: 09-22-[address] Oswald Franco Work Phone: [facility] Start: 09-19-2022 End: 09-19-2022 Subsequent hospital visit by physician X[facility] Work Phone: Radiology Comment on above: Left wrist pain [M25 .532] Start: 09-19-2022 End: 09-19-2022 Patient encounter procedure Blake Wilcox MD Work Phone: [facility] Comment on above: 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, unspecified vessel or lesion type (Primary Dx); NOE (obstructive sleep apnea); Generalized anxiety disorder; Gastroesophageal reflux disease with esophagitis, unspecified whether hemorrhage; Mixed hyperlipidemia; Left wrist pain Start: 09-15-2022 End: 09-15-[address] Carl Franco Work Phone: [facility] Start: 09-09-[address] Pierce Franco Work Phone: [facility] Start: 08-30-2022 End: 08-30-[address] Carl Franco Work Phone: [facility] Work Phone: Start: 08-30-2022 End: 08-30-[address] Carl Franco Work Phone: [facility] Start: 08-29-2022 End: 08-30-[address] Carl Franco Work Phone: [facility] Start: 08-22-2022 Telephone encounter Christopher ramey MD Work Phone: General Surgery Comment on above: Appointment Reschedu led Start: 08-19-[address] Pierce Franco Work Phone: [facility] Start: 08-11-2022 Telephone encounter Blake Wilcox MD Work Phone: [facility] Comment on above: Results Start: 08-10-2022 End: 08-10-2022 ambulatory [facility] Work Phone: [facility] Comment on above: Spirometry Start: 08-10-2022 End: 08-10-2022 Patient encounter procedure [facility] Work Phone: [facility] Start: 08-08-2022 End: 08-08-[address] Carl Franco Work Phone: [facility] Work Phone: Start: 08-08-2022 End: 08-08-[address] Carl Franco Work Phone: [facility] Start: 08-08-2022 End: 08-08-[address] Carl Franco Work Phone: [facility] Start: 08-06-2022 Refill Josefina Podlogmarly OXYACETYLENE WELDER.CHIEF OPERATOR HYDROFORMER Work Phone: [facility] Comment on above: Refill Request Flomax Start: 08-05-2022 End: 08-05-2022 Subsequent hospital visit by physician Xr [facility] Work Phone: Radiology Comment on above: Left wrist pain [M25 .532] Start: 08-05-2022 End: 08-05-2022 Patient encounter procedure Blake Wilcox MD Work Phone: [facility] Comment on above: Mixed hyperlipidemia (Primary Dx); NSTEMI (non-ST elevated myocardial infarction) (HCC); Left wrist pain; Cough, unspecified type; Rectal lesion Start: 07-30-2022 End: 07-30-2022 Patient encounter procedure Clarisse Reynolds APRN.CHIEF OPERATOR HYDROFORMER Work Phone: [facility] Comment on above: Chronic cough (Prima ry Dx) Start: 07-27-2022 End: 07-27-2022 Patient encounter procedure Yousif Franco MD Work Phone: [facility] Comment on above: NSTEMI (non-ST eleva peterson myocardial infarction) (HCC) (Primary Dx); Chest pain due to myocardial ischemia, unspecified ischemic chest pain type; WHEAT (dyspnea on exertion); Eczema, unspecified type Start: 07-19-2022 Non-patient / Non-visit Dr. Charles Franco Work Phone: [facility] Start: 07-18-2022 Non-patient / Non-visit Dr. Charles Franco Work Phone: [facility] Start: 07-18-2022 Non-patient / Non-visit Dr. Charles Franco Work Phone: [facility] Start: 07-17-2022 Non-patient / Non-visit Dr. Charles Franco Work Phone: [facility] Start: 07-17-2022 Non-patient / Non-visit Dr. Charles Franco Work Phone: [facility] Start: 07-16-2022 End: 07-19-2022 Evaluation and management of inpatient [facility]Pro[facility] Start: 05-03-2022 End: 05-03-2022 Patient encounter procedure Christopher James MD Work Phone: General Surgery Comment on above: Positive fecal occul t blood test Start: 05-02-2022 End: 05-02-2022 Patient encounter procedure Josefina Stokes APRN.CHIEF OPERATOR HYDROFORMER Work Phone: [facility] Comment on above: Positive fecal occul t blood test (Primary Dx); Encounter for immunization Start: 04-27-2022 Telephone encounter Josefina arizmendi OXYACETYLENE WELDER.CHIEF OPERATOR HYDROFORMER Work Phone: [facility] [place] Comment on above: Results Start: 04-05-2022 ambulatory Yousif Franco MD Work Phone: [facility] [place] Comment on above: Colonoscopy Start: 02-17-2022 Telephone encounter Carl Franco MD Work Phone: [facility] [place] Comment on above: Insurance Authorizat ion Start: 02-15-2022 Telephone encounter Carl Franco MD Work Phone: [facility] [place] Comment on above: Orders (Prior Auth f or Testosterone ) Start: 02-10-2022 Telephone encounter Carl Franco MD Work Phone: [facility] [place] Comment on above: Results Start: 02-08-2022 Telephone encounter Josefina arizmendi OXYACETYLENE WELDER.CHIEF OPERATOR HYDROFORMER Work Phone: [facility] [place] Comment on above: Orders Results Start: 02-07-2022 End: 02-07-2022 Patient encounter procedure Josefina Venturalogmarly OXYACETYLENE WELDER.CHIEF OPERATOR HYDROFORMER Work Phone: [facility] [place] Comment on above: Mixed hyperlipidemia (Primary Dx); Iron deficiency anemia, unspecified iron deficiency anemia type; Nocturia; Hypogonadism in male; Gastroesophageal reflux disease without esophagitis; Marital problems Start: 02-04-2022 ambulatory Josefina Stokes OXYACETYLENE WELDER.CHIEF OPERATOR HYDROFORMER Work Phone: [facility] [place] Comment on above: blood work Start: 01-24-2022 Telephone encounter Carl Franco MD Work Phone: [facility] [place] Comment on above: Medication Request ( testosterone) Start: 11-15-2021 End: 11-15-2021 Patient encounter procedure Johanny Holly PA-C Work Phone: [facility] Comment on above: Foreign body of righ t ear, initial encounter (Primary Dx); URI, acute Start: 08-06-2021 End: 08-06-2021 Subsequent hospital visit by physician [facility] [place] Work Phone: Radiology Comment on above: Chest pain, unspecif ied type [R07.9] Start: 08-16-2019 Patient encounter status [facility] Procedures Date Procedure Procedure Detail Performing Clinician Start: 02-27-2025 Adult depression scr eening assessment Tara Charles OXYACETYLENE WELDER.CHIEF OPERATOR HYDROFORMER Work Phone: Start: 02-20-[address] Blake Wilcox MD Work Phone: Start: 12-17-2024 Lipid 1996 panel - S jean paul or Plasma Blake Wilcox MD Work Phone: Start: 06-25-2024 Plethysmography lung volumes w/wo airway resist Blake Wilcox MD Work Phone: Start: 06-10-2024 Radiologic exam ches t 2 views Charlie Tipton OXYACETYLENE WELDER.CHIEF OPERATOR HYDROFORMER Work Phone: Start: 04-30-2024 Radiologic exam ches t 2 views Carolyne Gillis OXYACETYLENE WELDER.CHIEF OPERATOR HYDROFORMER Work Phone: Start: 12-11-2023 PFIZER-BIONTECH COVI D-19 VACCINE ( SEASON) AGE 12+ YR Blake Wilcox MD Work Phone: Start: 12-11-2023 Adult depression scr eening assessment Xr [place] Work Phone: Start: 09-19-2023 CT of chest without contrast Dr. Blake Wilcox Work Phone: Start: 09-19-2023 Plain X-ray of shoulder Dr. Blake Wilcox Work Phone: Start: 09-19-2023 Computed tomography of thoracic spine without contrast Dr. Blake Wilcox Work Phone: Start: 09-19-2023 CT cervical spine wi thout contrast Dr. Blake Wilcox Work Phone: Start: 09-19-2023 CT of head without contrast Dr. Blake Wilcox Work Phone: Start: 08-17-2023 Lipid 1996 panel - S jean paul or Plasma Blake Wilcox MD Work Phone: Start: 06-03-2023 PFIZER-BIONTECH COVI D-19 VACCINE ( SEASON) AGE 12+ YR Yousif Franco MD Work Phone: Start: 06-03-2023 INFLUENZA VACCINE, P RSV FREE, AGE 65+ YR, HIGH DOSE, QUADRIVALENT (FLUZONE HIGH-DOSE) Yousif Franco MD Work Phone: Start: 03-20-2023 Radiologic exam knee complete 4/more views Blake Wilcox MD Work Phone: Start: 02-24-2023 Hemoglobin A1c/Hemoglobin.total in Blood [facility] Start: 02-24-2023 Thyrotropin [Units/v olume] in Serum or Plasma [facility] Start: 09-19-2022 Radex wrist complete minimum 3 views Blake Wilcox MD Work Phone: Start: 08-10-2022 Plethysmography lung volumes w/wo airway resist Blake Wilcox MD Work Phone: Start: 08-10-2022 Lipid 1996 panel - S jean paul or Plasma [facility] [place] Work Phone: Start: 08-08-2022 Plain chest X-ray Dr. Emilee Franco Work Phone: Start: 08-05-2022 Radex wrist complete minimum 3 views Blake Wilcox MD Work Phone: Start: 07-27-2022 End: 07-27-2022 Ecg routine ecg w/least 12 lds i&r only [facility] Provider Start: 07-16-2022 CT angiography of ch est with contrast Start: 07-16-2022 Plain chest X-ray Start: 05-02-2022 INFLUENZA SEASONAL QUADRIVALENT HIGH DOSE AGE 65+ Josefina Podlogar OXYACETYLENE WELDER.CHIEF OPERATOR HYDROFORMER Work Phone: Start: 05-02-2022 PFIZER-BIONTECH COVI D-19 BIVALENT BOOSTER VACCINE, AGE 12+ YR Josefina Podlogar OXYACETYLENE WELDER.CHIEF OPERATOR HYDROFORMER Work Phone: Start: 08-06-2021 Radiologic exam ches t 2 views Josefina Podlogar OXYACETYLENE WELDER.CHIEF OPERATOR HYDROFORMER Work Phone: Start: 12-10-2020 Colonoscopy Johanny Holly PA-C Work Phone: Start: 12-07-2020 Adult depression scr eening assessment Johanny Holly PA-C Work Phone: Plan of Treatment Date Care Activity Detail Author Start: 12-16-2032 Urine microalbumin profile DTaP,Tdap,Td Vaccine (4 - Td or Tdap) [facility] Start: 12-17-2029 Lipid panel Lipid Screening [facility] Start: 08-17-2028 Lipid panel Lipid Screening [facility] Start: 12-18-2027 Diabetes Screening Diabetes Screenin g [facility] Start: 08-10-2027 Lipid 1996 panel - S jean paul or Plasma Lipid Screening [facility] Start: 08-10-2027 LIPID SCREEN LIPID SCREEN [facility] Start: 07-16-2027 Urine microalbumin profile DTAP,TDAP,TD (3 - Td or Tdap) [facility] Start: 02-09-2027 PROSTATE CANCER SCRE ENING DISCUSSION PROSTATE CANCER SCREENING DISCUSSION [facility] Start: 02-09-2027 Prostate specific an tigen measurement Prostate Cancer Screening Discussion [facility] Start: 02-07-2027 LIPID SCREEN LIPID SCREEN [facility] Start: 08-17-2026 Diabetes Screening Diabetes Screenin g [facility] Start: 08-04-2026 LIPID SCREEN LIPID SCREEN [facility] Start: 03-20-2026 DIABETES SCREEN DIABETES SCREEN [facility] Start: 03-20-2026 Diabetes Screening Diabetes Screenin g [facility] Start: 02-27-2026 Annual PCP Team Office Professional hina Disease Visit Annual PCP Team Chronic Disease Visit [facility] Start: 02-27-2026 Depression Screening Depression Scre ening [facility] Start: 02-24-2026 DIABETES SCREEN DIABETES SCREEN [facility] Start: 12-17-2025 Hepatitis B surface antibody level LDL Cholesterol [facility] Start: 12-16-2025 Annual PCP Team Office Professional hina Disease Visit Annual PCP Team Chronic Disease Visit [facility] Start: 12-10-2025 Colonoscopy COLONOSCOPY [facility] Start: 12-10-2025 COLORECTAL CANCER SCREENING COLORECTAL CANCER SCREENING [facility] Start: 12-10-2025 Screening for malign ant neoplasm of colon [facility] Start: 11-12-2025 PROSTATE CANCER SCRE ENING DISCUSSION PROSTATE CANCER SCREENING DISCUSSION [facility] Start: 08-10-2025 DIABETES SCREEN DIABETES SCREEN [facility] Start: 06-20-2025 End: 06-20-2025 Patient encounter procedure 06/20/2025 9:00 AM EST Office Visit [facility] [place] [address] [place] [id number] Blake Wilcox MD [address] [facility] [place], [place] [address] Medicare Wellness [facility] [place] Comment on above: Medicare Wellness Start: 06-17-2025 Annual PCP Team Office Professional hina Disease Visit Annual PCP Team Chronic Disease Visit [facility] Start: 06-10-2025 Annual PCP Team Office Professional hina Disease Visit Annual PCP Team Chronic Disease Visit [facility] Start: 03-31-2025 Influenza vaccination Influenza Vacc ine (#1) [facility] Start: 02-27-2025 End: 02-27-2025 Patient encounter procedure 02/27/2025 2:20 PM EDT Office Visit [facility] [place] [address] [place], [place] [id number] Tara Charles, OXYACETYLENE WELDER.CHIEF OPERATOR HYDROFORMER [address] [place], [place] [id number] [facility] ER /24 follow up right ear pain cellulitis, lymph nodes swollen [facility] Brandon Sullivan Comment on above: [facility] ER 02/20 follow u p right ear pain cellulitis, lymph nodes swollen Start: 02-20-2025 [facility] Start: 02-19-2025 Evaluation of diagno stic study results [facility] Start: 02-07-2025 DIABETES SCREEN DIABETES SCREEN [facility] Start: 12-16-2024 End: 12-16-2024 Patient encounter procedure 12/16/2024 1:40 PM EDT [facility] [place] [address] [facility] [place] [address] Blake Wilcox MD [address] [facility] [place] [id number] 6 month follow up. Labs prior [facility] [place] Comment on above: 6 month follow up. L abs prior Start: 12-15-2024 End: 03-16-2025 CBC W Auto Differential panel - Blood COMPLETE BLOOD COUNT AND DIFFERENTIAL Lab Routine Coronary artery disease involving timbi-sha shoshone heart without angina pectoris, unspecified vessel or lesion type Expected: 12/15/2024, Expires: 03/16/2025 [facility] Comment on above: Expected: 12/15/2024 , Expires: 03/16/2025 Start: 12-15-2024 End: 03-16-2025 Comprehensive metabolic 2000 panel - Serum or Plasma COMPREHENSIVE METABOLIC PANEL Lab Routine Coronary artery disease involving timbi-sha shoshone heart without angina pectoris, unspecified vessel or lesion type Expected: 12/15/2024, Expires: 03/16/2025 [facility] Comment on above: Expected: 12/15/2024 , Expires: 03/16/2025 Start: 12-15-2024 End: 03-16-2025 Lipid 1996 panel - Serum or Plasma LIPID PANEL BASIC Lab Routine Coronary artery disease involving timbi-sha shoshone heart without angina pectoris, unspecified vessel or lesion type Expected: 12/15/2024, Expires: 03/16/2025 [facility] Comment on above: Expected: 12/15/2024 , Expires: 03/16/2025 Start: 12-15-2024 End: 03-16-2025 PSA/PROSTATE SPECIFIC ANTIGEN SCREENING PSA/PROSTATE SPECIFIC ANTIGEN SCREENING Lab Routine Screening for prostate cancer Expected: 12/15/2024, Expires: 03/16/2025 [facility] Comment on above: Expected: 12/15/2024 , Expires: 03/16/2025 Start: 12-10-2024 Annual PCP Team Office Professional hina Disease Visit Annual PCP Team Chronic Disease Visit [facility] Start: 12-10-2024 Depression Screening Depression Scre ening [facility] Start: 09-22-2024 Annual PCP Team Office Professional hina Disease Visit Annual PCP Team Chronic Disease Visit [facility] Start: 08-19-2024 End: 08-19-2024 Patient encounter procedure 08/19/2024 3:00 PM EST Office Visit [facility] [place] [address] [facility] [place] [address] Blake Wilcox MD [address] [place] [address] Cough and congestion [facility] [place] Comment on above: Cough and congestion Start: 08-17-2024 Hepatitis B surface antibody level LDL Cholesterol [facility] Start: 08-04-2024 DIABETES SCREEN DIABETES SCREEN [facility] Start: 07-31-2024 Advance Directive Discussion Advance Directive Discussion [facility] Start: 07-31-2024 Medicare Advantage A nnual Wellness Visit Medicare Advantage Annual Wellness Visit [facility] Start: 06-25-2024 End: 06-25-2024 ambulatory [facility] Comment on above: Cough, unspecified t ype [R05.9] Start: 06-17-2024 End: 06-17-2024 Patient encounter procedure [facility] [place] Comment on above: 6 Month follow up 6 Month follow up-le ft knee Start: 03-31-2024 Covid-19 Vaccine ( season) Covid-19 Vaccine () [facility] Start: 03-31-2024 Influenza vaccination Influenza Vacc ine (#1) [facility] Start: 03-20-2024 ANNUAL PCP TEAM MOP WORKER HINA DISEASE VISIT ANNUAL PCP TEAM CHRONIC DISEASE VISIT [facility] Start: 08-10-2023 Hepatitis B surface antibody level LDL CHOLESTEROL [facility] Start: 07-31-2023 Advance Directive Discussion Advance Directive Discussion [facility] Start: 07-31-2023 Behavioral Health Screening Behavioral Health Screening [facility] Start: 07-31-2023 Depression Assessment Depression Ass essment [facility] Start: 03-31-2023 Influenza vaccination INFLUENZA (#1) [facility] Start: 03-20-2023 End: 05-20-2023 Comprehensive metabolic 2000 panel - Serum or Plasma [facility] Work Phone: Comment on above: Expected: 03/20/2023 , Expires: 05/20/2023 Start: 03-20-2023 End: 05-20-2023 Testosterone [Mass/volume] in Serum or Plasma [facility] Work Phone: Comment on above: Expected: 03/20/2023 , Expires: 05/20/2023 Start: 12-16-2022 Simple repair scalp/neck/ax/genit/trunk 2.5cm/< RPR S/N/AX/GEN/TRNK 2.5CM/< [facility] Start: 09-02-2022 COVID-19 VACCINE (5 - Pfizer series) COVID-19 VACCINE (5 - Pfizer series) [facility] Start: 08-12-2022 FECAL OCCULT BLOOD FECAL OCCULT BLOO D [facility] Start: 08-12-2022 Screening for malign ant neoplasm of colon Fecal Occult Blood [facility] Start: 08-11-2022 End: 10-11-2022 Hemoglobin A1c in Blood HGB A1C Lab Routine Hyperglycemia Expected: 08/11/2022, Expires: 10/11/2022 [facility] Work Phone: Comment on above: Expected: 08/11/2022 , Expires: 10/11/2022 Start: 08-08-2022 [facility] Start: 08-05-2022 End: 10-05-2022 Comprehensive metabolic 2000 panel - Serum or Plasma COMP METABOLIC PANEL Lab Routine Mixed hyperlipidemia Expected: 08/05/2022, Expires: 10/05/2022 [facility] Work Phone: Comment on above: Expected: 08/05/2022 , Expires: 10/05/2022 Start: 08-05-2022 End: 10-05-2022 Lipid 1996 panel - Serum or Plasma LIPID PANEL BASIC Lab Routine Mixed hyperlipidemia Expected: 08/05/2022, Expires: 10/05/2022 [facility] Work Phone: Comment on above: Expected: 08/05/2022 , Expires: 10/05/2022 Start: 07-31-2022 ADVANCE DIRECTIVE DISCUSSION ADVANCE DIRECTIVE DISCUSSION [facility] Start: 07-31-2022 DEPRESSION ASSESSMENT DEPRESSION ASS ESSMENT [facility] Start: 07-19-2022 Patient discharge [facility] Start: 07-18-2022 Patient referral [facility] Work Phone: Start: 07-18-2022 Cardiac monitoring [facility] Start: 07-18-2022 Cardiac rehabilitati on - phase 1 [facility] Start: 07-18-2022 Notification of physician [facility] Start: 07-18-2022 Oxygen therapy [facility] Start: 07-18-2022 Patient discharge [facility] Start: 07-18-2022 Systemic arterial pressure monitoring [facility] Start: 07-18-2022 Taking patient vital signs [facility] Start: 07-18-2022 Vascular disease ris k assessment [facility] Start: 07-18-2022 Vital signs measurements [facility] Start: 07-18-2022 [facility] Start: 07-18-2022 [facility] Start: 07-17-2022 Preoperative care [facility] [facility] Start: 07-17-2022 Medication not administered [facility] Start: 07-17-2022 End: 07-17-2022 Notification of physician [facility] Start: 07-17-2022 [facility] Start: 07-16-2022 Following clinical pathway protocol [facility] Start: 07-16-2022 Insertion of cathete r into peripheral vein [facility] Start: 07-16-2022 Measuring intake and output [facility] Start: 07-16-2022 Providing care accor ding to standard [facility] Start: 07-16-2022 Referral to underwriting clerk [facility] Start: 07-16-2022 Tobacco use cessatio n education [facility] Start: 07-16-2022 [facility] Start: 07-16-2022 Verification routine [facility] Work Phone: Start: 07-16-2022 Admission procedure [facility] Start: 07-16-2022 [facility] Work Phone: Start: 03-31-2022 Influenza vaccination INFLUENZA (#1) [facility] Start: 02-08-2022 End: 04-10-2022 PSA/PROSTSPECAG SCRN PSA/PROSTSPECAG SCRN Lab Routine Screening for prostate cancer Expected: 02/08/2022, Expires: 04/10/2022 [facility] Work Phone: Comment on above: Expected: 02/08/2022 , Expires: 04/10/2022 Start: 02-07-2022 End: 04-09-2022 Ferritin [Mass/volume] in Serum or Plasma [facility] Work Phone: Comment on above: Expected: 02/07/2022 , Expires: 04/09/2022 Start: 02-07-2022 End: 04-09-2022 Iron and Iron binding capacity panel - Serum or Plasma [facility] Work Phone: Comment on above: Expected: 02/07/2022 , Expires: 04/09/2022 Start: 02-04-2022 End: 04-06-2022 Comprehensive metabolic 2000 panel - Serum or Plasma COMP METABOLIC PANEL Lab Routine Mixed hyperlipidemia Expected: 02/04/2022, Expires: 04/06/2022 [facility] Work Phone: Comment on above: Expected: 02/04/2022 , Expires: 04/06/2022 Start: 02-04-2022 End: 04-06-2022 Lipid 1996 panel - Serum or Plasma LIPID PANEL BASIC Lab Routine Mixed hyperlipidemia Expected: 02/04/2022, Expires: 04/06/2022 [facility] Work Phone: Comment on above: Expected: 02/04/2022 , Expires: 04/06/2022 Start: 02-04-2022 End: 04-06-2022 Testosterone [Mass/volume] in Serum or Plasma TESTOSTERONE TOTAL Lab Routine Hypogonadism in male Expected: 02/04/2022, Expires: 04/06/2022 [facility] Work Phone: Comment on above: Expected: 02/04/2022 , Expires: 04/06/2022 Start: 12-07-2021 Adult depression screening assessment DEPRESSION SCREENING [facility] Start: 11-10-2021 COVID-19 VACCINE (4 - Booster for Pfizer series) COVID-19 VACCINE (4 - Booster for Pfizer series) [facility] Start: 07-31-2021 ADVANCE DIRECTIVE DISCUSSION ADVANCE DIRECTIVE DISCUSSION [facility] Start: 07-31-2021 DEPRESSION ASSESSMENT DEPRESSION ASS ESSMENT [facility] Start: 09-29-2020 PNEUMOCOCCAL: 65+ (1 - PCV) PNEUMOCOCCAL: 65+ (1 - PCV) [facility] Start: 09-29-2020 PNEUMOVAX AGE 65 AND OVER WITH 5YR LOOKBACK (#1) PNEUMOVAX AGE 65 AND OVER WITH 5YR LOOKBACK (#1) [facility] Start: 2015 RSV Vaccine (1 - 1-d ose 60+ series) RSV Vaccine (1 - 1-dose 60+ series) [facility] Start: 09-29-2000 COLOGUARD (FIT-DNA) COLOGUARD (FIT-D NA) [facility] Start: 09-29-[address] COLONOGRAPHY [facility] Start: 09-29-2000 Screening for malign ant neoplasm of colon [facility] Start: 09-29-2000 SIGMOIDOSCOPY SIGMOIDOSCOPY [facility] COVID & INFLUENZA A/ B & RSV PCR, ROUTINE COVID & INFLUENZA A/B & RSV PCR, ROUTINE Microbiology Routine URI, acute Acute cough Ordered: 04/30/2024 [facility] Work Phone: Comment on above: Ordered: 04/30/2024 End: 07-27-2023 ECG COMPLETE ECG COMPLETE ECG Routine NSTEMI (non-ST elevated myocardial infarction) (HCC) 1 Occurrences starting 07/27/2022 until 07/27/2023 [facility] Work Phone: Comment on above: 1 Occurrences starti ng 07/27/2022 until 07/27/2023 ECG COMPLETE ECG COMPLETE ECG 07/27/2022 10:42 AM [facility] Evaluation of diagno stic study results [facility] Influenza virus A an d B RNA and SARS-CoV-2 (COVID-19) N gene panel - Respiratory specimen by TERRANCE with probe detection COVID WITH FLUA+B, ROUTINE Microbiology Routine URI, acute Cough, unspecified type 10/06/2022 11:46 AM [facility] Work Phone: End: 09-04-2023 LUNG DIFFUSION CAPACITY (DLCO) LUNG DIFFUSION CAPACITY (DLCO) PFT Routine Cough, unspecified type 1 Occurrences starting 08/05/2022 until 09/04/2023 [facility] Work Phone: Comment on above: 1 Occurrences starti ng 08/05/2022 until 09/04/2023 LUNG DIFFUSION CAPAC ITY (DLCO) LUNG DIFFUSION CAPACITY (DLCO) PFT Routine Cough, unspecified type 08/10/2022 10:16 AM EST [facility] Work Phone: End: 09-04-2023 LUNG VOLUMES LUNG VOLUMES PFT Routine Cough, unspecified type 1 Occurrences starting 08/05/2022 until 09/04/2023 [facility] Work Phone: Comment on above: 1 Occurrences starti ng 08/05/2022 until 09/04/2023 LUNG VOLUMES LUNG VOLUMES PFT Routine Cough, unspecified type 08/10/2022 10:16 AM EST [facility] Work Phone: End: 07-17-2025 LUNG VOLUMES LUNG VOLUMES PFT Routine Cough, unspecified type 1 Occurrences starting 06/17/2024 until 07/17/2025 [facility] Comment on above: 1 Occurrences starti ng 06/17/2024 until 07/17/2025 LUNG VOLUMES LUNG VOLUMES PFT Routine Cough, unspecified type 06/25/2024 12:31 PM EST [facility] Work Phone: OUTSIDE VENDOR CARDI AC OUTPATIENT EXTENDED RHYTHM RECORDING (WITHOUT TELEMETRY) OUTSIDE VENDOR CARDIAC OUTPATIENT EXTENDED RHYTHM RECORDING (WITHOUT TELEMETRY) Holter Routine Lightheaded Ordered: 12/16/2024 [facility] Work Phone: Comment on above: Ordered: 12/16/2024 Patient Education [facility] Work Phone: Patient referral [facility] Work Phone: Polysomnography [facility] PSA/PROSTSPECAG SCRN PSA/PROSTSP ECAG SCRN Lab Routine Screening for prostate cancer 02/09/2022 3:25 PM EDT [facility] Work Phone: Radionuclide imaging of perfusion of myocardium under exercise stress [facility] End: 09-04-2023 SPIROMETRY WITH DILATOR IF OBSTRUCTED SPIROMETRY WITH DILATOR IF OBSTRUCTED PFT Routine Cough, unspecified type 1 Occurrences starting 08/05/2022 until 09/04/2023 [facility] Work Phone: Comment on above: 1 Occurrences starti ng 08/05/2022 until 09/04/2023 End: 07-17-2025 SPIROMETRY WITH DILATOR IF OBSTRUCTED SPIROMETRY WITH DILATOR IF OBSTRUCTED PFT Routine Cough, unspecified type 1 Occurrences starting 06/17/2024 until 07/17/2025 [facility] Work Phone: Comment on above: 1 Occurrences starti ng 06/17/2024 until 07/17/2025 SPIROMETRY WITH DILA TOR IF OBSTRUCTED SPIROMETRY WITH DILATOR IF OBSTRUCTED PFT Routine Cough, unspecified type 06/25/2024 12:31 PM EST [facility] Work Phone: [facility] End: 07-17-2025 XR Knee - left 4 Views XR KNEE GENERAL 4V AP BOTH/PA BOTH/LAT/MERC LEFT Radiology Routine Chronic pain of left knee 1 Occurrences starting 06/17/2024 until 07/17/2025 [facility] Comment on above: 1 Occurrences starti ng 06/17/2024 until 07/17/2025 XR Knee - left 4 Views XR KNEE G ENERAL 4V AP BOTH/PA BOTH/LAT/MERC LEFT Radiology Routine Chronic pain of left knee 06/17/2024 12:00 PM EST [facility] End: 04-18-2024 XR KNEE GENERAL 4V AP BOTH/PA BOTH/LAT/MERC LEFT XR KNEE GENERAL 4V AP BOTH/PA BOTH/LAT/MERC LEFT Radiology Routine Chronic pain of left knee 1 Occurrences starting 03/20/2023 until 04/18/2024 [facility] Work Phone: Comment on above: 1 Occurrences starti ng 03/20/2023 until 04/18/2024 XR KNEE GENERAL 4V A P BOTH/PA BOTH/LAT/MERC LEFT XR KNEE GENERAL 4V AP BOTH/PA BOTH/LAT/MERC LEFT Radiology Routine Chronic pain of left knee 03/20/2023 2:37 PM EDT [facility] Work Phone: End: 09-04-2023 XR WRIST GENERAL 3V PA/LAT/OBL LEFT XR WRIST GENERAL 3V PA/LAT/OBL LEFT Radiology Routine Left wrist pain 1 Occurrences starting 08/05/2022 until 09/04/2023 [facility] Work Phone: Comment on above: 1 Occurrences starti ng 08/05/2022 until 09/04/2023 XR WRIST GENERAL 3V PA/LAT/OBL LEFT XR WRIST GENERAL 3V PA/LAT/OBL LEFT Radiology Routine Left wrist pain 08/05/2022 10:01 AM EST [facility] Work Phone: End: 10-19-2023 XR WRIST GENERAL 3V PA/LAT/OBL LEFT XR WRIST GENERAL 3V PA/LAT/OBL LEFT Radiology Routine Left wrist pain 1 Occurrences starting 09/19/2022 until 10/19/2023 [facility] Work Phone: Comment on above: 1 Occurrences starti ng 09/19/2022 until 10/19/2023 XR WRIST GENERAL 3V PA/LAT/OBL LEFT XR WRIST GENERAL 3V PA/LAT/OBL LEFT Radiology Routine Left wrist pain 09/19/2022 6:16 PM EST [facility] Work Phone: [facility] Immunizations Immunization Date Immunization Notes Care Provider [facility] 04-15-2024 influenza, injectable, quadrivalent, preservative free Blake Wilcox MD Work Phone: [facility] 04-15-2024 influenza virus vaccine, unspecified formulation Blake Wilcox MD Work Phone: [facility] 12-11-2023 COVID-19 vaccine, ag e 12+ yr, season (PFIZER-BIONTECH) Blake Wilcox MD Work Phone: [facility] 06-13-2023 respiratory syncytia l virus (RSV) vaccine, adjuvanted (AREXVY) Blake Wilcox MD Work Phone: [facility] 06-03-2023 COVID-19 vaccine, ag e 12+ yr, season (PFIZER-BIONTECH) Immunization [place] Work Phone: [facility] 06-03-2023 influenza (HD-IIV4) vaccine, age 65+ yr, high dose, quadrivalent, PF (FLUZONE HIGH-DOSE) Immunization [place] Work Phone: [facility] 06-03-2023 influenza virus vaccine, unspecified formulation Xr [place] Work Phone: [facility] 12-16-2022 tetanus toxoid, reduced diphtheria toxoid, and acellular pertussis vaccine, adsorbed Dr. Blake Wilcox Work Phone: [facility] 05-02-2022 COVID-19 booster vaccine, age 12+ yr, bivalent (PFIZER-BIONTECH) Josefina Podlogar OXYACETYLENE WELDER.[facility] Work Phone: [facility] 05-02-2022 Influenza, high dose seasonal Dr. Blake Wilcox MD Work Phone: [facility] 05-02-2022 influenza, high dose seasonal, preservative-free Dr. Carl Franco Work Phone: [facility] 05-02-2022 influenza, high-dose , quadrivalent vaccine (FLUZONE HIGH DOSE QUADRIVALENT) Josefina Podlogar OXYACETYLENE WELDER.CHIEF OPERATOR HYDROFORMER Work Phone: [facility] 05-02-2022 pneumococcal (PCV20) vaccine, 20 valent (PREVNAR 20) Josefina Podlogar OXYACETYLENE WELDER.CHIEF OPERATOR HYDROFORMER Work Phone: [facility] 05-02-2022 pneumococcal Conjugate, unspecified formulation Josefina Podlogar OXYACETYLENE WELDER.[facility] Work Phone: [facility] Work Phone: 08-06-2021 influenza, high-dose , quadrivalent vaccine (FLUZONE HIGH DOSE QUADRIVALENT) Johanny Holly PA-C Work Phone: [facility] 10-30-2020 COVID-19 vaccine, ag e 12+ yr (PFIZER-BIONTECH - PURPLE TOP) Johanny Holly PA-C Work Phone: [facility] 10-09-2020 COVID-19 vaccine, ag e 12+ yr (PFIZER-BIONTECH - PURPLE TOP) Johanny Holly PA-C Work Phone: [facility] 07-01-2019 hepatitis A and hepatitis B vaccine Johanny Bogner PA-C Work Phone: [facility] Work Phone: 07-01-2019 zoster vaccine recombinant Johanny Bogner PA-C Work Phone: [facility] Work Phone: 02-08-2019 zoster vaccine recombinant Johanny Bogner PA-C Work Phone: [facility] Work Phone: 01-28-2019 hepatitis A and hepatitis B vaccine Johanny Bogner PA-C Work Phone: [facility] Work Phone: 12-26-2018 hepatitis A and hepatitis B vaccine Johanny Bogner PA-C Work Phone: [facility] Work Phone: 05-09-2018 influenza, injectable, quadrivalent, contains preservative Johanny Bogner PA-C Work Phone: [facility] 07-16-2017 tetanus toxoid, reduced diphtheria toxoid, and acellular pertussis vaccine, adsorbed Johanny Bogner PA-C Work Phone: [facility] 04-24-2015 influenza, seasonal, injectable Johanny Bogner PA-C Work Phone: [facility] 08-27-2013 influenza virus vaccine, unspecified formulation Johanny Bogner PA-C Work Phone: [facility] 08-30-2010 influenza virus vaccine, unspecified formulation Johanny Bogner PA-C Work Phone: [facility] 07-21-2009 novel [id number], preservative-free, injectable Blake Wilcox MD Work Phone: [facility] 04-27-2009 influenza virus vaccine, unspecified formulation Johanny Bogner PA-C Work Phone: [facility] Work Phone: 03-20-2009 tetanus toxoid, reduced diphtheria toxoid, and acellular pertussis vaccine, adsorbed Johanny Holly PA-C Work Phone: [facility] 07-20-2005 influenza virus vaccine, unspecified formulation Johanny Holly PA-C Work Phone: [facility] Payers Date Payer Category Payer Self-pay [id number] 2022 Medicare (Managed Care) HENOKHenrry Jimmy RICHARDSON [id number] 2022 Medicare [id number] 2020 Medicare UHC MEDICARE UHC MEDICARE ADVANTAGE PP [id number] 2020-Present [phone] [address] [address] [place] [address] [facility] [id number] 2020 Medicare [id number] Medicare MEDICARE PART A B [id number] Private Health Insurance [id number] Unknown [id number] Unknown [id number] Unknown [id number] Unknown [id number] Unknown [id number] Unknown [id number] Unknown [id number] Unknown [id number] Unknown [id number] Unknown [id number] Unknown [id number] 462 Unknown [id number] 462 Unknown [id number] 462 Unknown [id number] Unknown [id number] Social History Date Type Detail Facility Start: 10-02-2015 End: 05-02-2022 Tobacco smoking status AKIS Never smoked tobacco [facility] Work Phone: Start: 11-15-2021 End: 02-27-2025 Alcohol intake Current drinker of alcohol (finding) [facility] Start: 1955 Sex Assigned At Male [facility] Start: 07-07-2021 End: 05-03-2022 Exposure to SARS-CoV-2 (event) Not sure [facility] Work Phone: Start: 10-02-2015 End: 05-02-2022 Tobacco use and exposure Smokeless tobacco non-user [facility] Start: 04-28-2022 History SDOH Alcohol Frequency 4 [facility] Start: 04-28-2022 End: 07-22-2022 History SDOH Alcohol Std Drinks 1 [facility] Start: 04-28-2022 End: 07-22-2022 History SDOH Social Connections Phone 5 [facility] Start: 04-28-2022 End: 07-22-2022 History SDOH Social Connections Meetings 3 [facility] Start: 04-28-2022 End: 07-22-2022 History SDOH Physical Activity DPW 0 [facility] Start: 04-28-2022 End: 07-22-2022 History SDOH Stress 2 [facility] Start: 07-16-2022 End: 09-19-2023 Tobacco smoking status NHIS Unknown if ever smoked [facility] Start: 02-04-2019 With Family [facility] Start: 08-16-2019 Non-smoker [facility] Start: 07-22-2022 End: 03-20-2023 History of Social function [facility] Start: 07-22-2022 End: 03-20-2023 Social connection and isolation panel [facility] Do you belong to any clubs or organizations such as nondenominational groups, unions, fraternal or athletic groups, or school groups? Yes [facility] Are you now , , , , never or living with a partner? [facility] How often to you hav e a drink containing alcohol? 2-4 times a month [facility] How many standard dr inks containing alcohol do you have on a typical day? 1 or 2 [facility] How often do you hav e 6 or more drinks on 1 occasion? Never [facility] Start: 07-01-2012 How hard is it for you to pay for the very basics like food, housing, medical care, and heating Not hard at all [facility] Do you feel stress - tense, restless, nervous, or anxious, or unable to sleep at night because your mind is troubled all the time - these days [OSQ] Only a little [facility] (I/We) worried wheth er (my/our) food would run out before (I/we) got money to buy more. Never true [facility] In the past 12 month s, was there a time when you were not able to pay the mortgage or rent on time? No [facility] Start: 11-16-2020 Gender identity Identifies as male gender (finding) [facility] Start: 11-16-2020 Sexual orientation Heterosexual (finding) [facility] How hard is it for y ou to pay for the very basics like food, housing, medical care, and heating Not very hard [facility] Do you feel stress - tense, restless, nervous, or anxious, or unable to sleep at night because your mind is troubled all the time - these days [OSQ] To some extent [facility] Medical Equipment Procedure Code Equipment Code Equipment Origin al Text Equipment Identifier Dates Removal, hardware internal brace lisfranc ligame FDA Start: 08-23-2019 Removal, hardware internal brace lisfranc ligame FDA Start: 08-23-2019 Removal, hardware internal brace lisfranc ligame FDA Start: 08-23-2019 Removal, hardware internal brace lisfranc ligame FDA Start: 08-23-2019 Removal, hardware internal brace lisfranc ligame FDA Start: 08-23-2019 Removal, hardware internal brace lisfranc ligame FDA Start: 08-23-2019 Removal, hardware internal brace lisfranc ligame FDA Start: 08-23-2019 Removal, hardware internal brace lisfranc ligame FDA Start: 08-23-2019 Removal, hardware internal brace lisfranc ligame FDA Start: 08-23-2019 Removal, hardware internal brace lisfranc ligame FDA Start: 08-23-2019 Removal, hardware internal brace lisfranc ligame FDA Start: 08-23-2019 Removal, hardware internal brace lisfranc ligame FDA Start: 08-23-2019 ORIF, fracture, metatarsal bone 3.0 LONG THREADED CAN SCREW FDA Start: 02-22-2019 ORIF, fracture, metatarsal bone 4.0mm Cancellous Bone Screws FDA Start: 02-22-2019 ORIF, fracture, metatarsal bone 4.0mm Cancellous Screw FDA Start: 02-22-2019 ORIF, fracture, metatarsal bone 4.5 MM PART THREADED CAN SCREW FDA Start: 02-22-2019 ORIF, fracture, metatarsal bone 7mm Washer FDA Start: 02-22-2019 ORIF, fracture, metatarsal bone SWIVELOCK,4.75 DOUBLE LOCK FDA Start: 02-22-2019 ORIF, fracture, metatarsal bone SYNDESMOSIS TIGHTROPE FDA Start: 02-22-2019 ORIF, fracture, metatarsal bone WASHER FDA Start: 02-22-2019 ORIF, fracture, metatarsal bone 3.0 LONG THREADED CAN SCREW FDA Start: 02-22-2019 ORIF, fracture, metatarsal bone 4.0mm Cancellous Bone Screws FDA Start: 02-22-2019 ORIF, fracture, metatarsal bone 4.0mm Cancellous Screw FDA Start: 02-22-2019 ORIF, fracture, metatarsal bone 4.5 MM PART THREADED CAN SCREW FDA Start: 02-22-2019 ORIF, fracture, metatarsal bone 7mm Washer FDA Start: 02-22-2019 ORIF, fracture, metatarsal bone SWIVELOCK,4.75 DOUBLE LOCK FDA Start: 02-22-2019 ORIF, fracture, metatarsal bone SYNDESMOSIS TIGHTROPE FDA Start: 02-22-2019 ORIF, fracture, metatarsal bone WASHER FDA Start: 02-22-2019 ORIF, fracture, metatarsal bone 3.0 LONG THREADED CAN SCREW FDA Start: 02-22-2019 ORIF, fracture, metatarsal bone 4.0mm Cancellous Bone Screws FDA Start: 02-22-2019 ORIF, fracture, metatarsal bone 4.0mm Cancellous Screw FDA Start: 02-22-2019 ORIF, fracture, metatarsal bone 4.5 MM PART THREADED CAN SCREW FDA Start: 02-22-2019 ORIF, fracture, metatarsal bone 7mm Washer FDA Start: 02-22-2019 ORIF, fracture, metatarsal bone SWIVELOCK,4.75 DOUBLE LOCK FDA Start: 02-22-2019 ORIF, fracture, metatarsal bone SYNDESMOSIS TIGHTROPE FDA Start: 02-22-2019 ORIF, fracture, metatarsal bone WASHER FDA Start: 02-22-2019 ORIF, fracture, metatarsal bone 3.0 LONG THREADED CAN SCREW FDA Start: 02-22-2019 ORIF, fracture, metatarsal bone 4.0mm Cancellous Bone Screws FDA Start: 02-22-2019 ORIF, fracture, metatarsal bone 4.0mm Cancellous Screw FDA Start: 02-22-2019 ORIF, fracture, metatarsal bone 4.5 MM PART THREADED CAN SCREW FDA Start: 02-22-2019 ORIF, fracture, metatarsal bone 7mm Washer FDA Start: 02-22-2019 ORIF, fracture, metatarsal bone SWIVELOCK,4.75 DOUBLE LOCK FDA Start: 02-22-2019 ORIF, fracture, metatarsal bone SYNDESMOSIS TIGHTROPE FDA Start: 02-22-2019 ORIF, fracture, metatarsal bone WASHER FDA Start: 02-22-2019 ORIF, fracture, metatarsal bone 3.0 LONG THREADED CAN SCREW FDA Start: 02-22-2019 ORIF, fracture, metatarsal bone 4.0mm Cancellous Bone Screws FDA Start: 02-22-2019 ORIF, fracture, metatarsal bone 4.0mm Cancellous Screw FDA Start: 02-22-2019 ORIF, fracture, metatarsal bone 4.5 MM PART THREADED CAN SCREW FDA Start: 02-22-2019 ORIF, fracture, metatarsal bone 7mm Washer FDA Start: 02-22-2019 ORIF, fracture, metatarsal bone SWIVELOCK,4.75 DOUBLE LOCK FDA Start: 02-22-2019 ORIF, fracture, metatarsal bone SYNDESMOSIS TIGHTROPE FDA Start: 02-22-2019 ORIF, fracture, metatarsal bone WASHER FDA Start: 02-22-2019 ORIF, fracture, metatarsal bone 3.0 LONG THREADED CAN SCREW FDA Start: 02-22-2019 ORIF, fracture, metatarsal bone 4.0mm Cancellous Bone Screws FDA Start: 02-22-2019 ORIF, fracture, metatarsal bone 4.0mm Cancellous Screw FDA Start: 02-22-2019 ORIF, fracture, metatarsal bone 4.5 MM PART THREADED CAN SCREW FDA Start: 02-22-2019 ORIF, fracture, metatarsal bone 7mm Washer FDA Start: 02-22-2019 ORIF, fracture, metatarsal bone SWIVELOCK,4.75 DOUBLE LOCK FDA Start: 02-22-2019 ORIF, fracture, metatarsal bone SYNDESMOSIS TIGHTROPE FDA Start: 02-22-2019 ORIF, fracture, metatarsal bone WASHER FDA Start: 02-22-2019 ORIF, fracture, metatarsal bone 3.0 LONG THREADED CAN SCREW FDA Start: 02-22-2019 ORIF, fracture, metatarsal bone 4.0mm Cancellous Bone Screws FDA Start: 02-22-2019 ORIF, fracture, metatarsal bone 4.0mm Cancellous Screw FDA Start: 02-22-2019 ORIF, fracture, metatarsal bone 4.5 MM PART THREADED CAN SCREW FDA Start: 02-22-2019 ORIF, fracture, metatarsal bone 7mm Washer FDA Start: 02-22-2019 ORIF, fracture, metatarsal bone SWIVELOCK,4.75 DOUBLE LOCK FDA Start: 02-22-2019 ORIF, fracture, metatarsal bone SYNDESMOSIS TIGHTROPE FDA Start: 02-22-2019 ORIF, fracture, metatarsal bone WASHER FDA Start: 02-22-2019 ORIF, fracture, metatarsal bone 3.0 LONG THREADED CAN SCREW FDA Start: 02-22-2019 ORIF, fracture, metatarsal bone 4.0mm Cancellous Bone Screws FDA Start: 02-22-2019 ORIF, fracture, metatarsal bone 4.0mm Cancellous Screw FDA Start: 02-22-2019 ORIF, fracture, metatarsal bone 4.5 MM PART THREADED CAN SCREW FDA Start: 02-22-2019 ORIF, fracture, metatarsal bone 7mm Washer FDA Start: 02-22-2019 ORIF, fracture, metatarsal bone SWIVELOCK,4.75 DOUBLE LOCK FDA Start: 02-22-2019 ORIF, fracture, metatarsal bone SYNDESMOSIS TIGHTROPE FDA Start: 02-22-2019 ORIF, fracture, metatarsal bone WASHER FDA Start: 02-22-2019 ORIF, fracture, metatarsal bone 3.0 LONG THREADED CAN SCREW FDA Start: 02-22-2019 ORIF, fracture, metatarsal bone 4.0mm Cancellous Bone Screws FDA Start: 02-22-2019 ORIF, fracture, metatarsal bone 4.0mm Cancellous Screw FDA Start: 02-22-2019 ORIF, fracture, metatarsal bone 4.5 MM PART THREADED CAN SCREW FDA Start: 02-22-2019 ORIF, fracture, metatarsal bone 7mm Washer FDA Start: 02-22-2019 ORIF, fracture, metatarsal bone SWIVELOCK,4.75 DOUBLE LOCK FDA Start: 02-22-2019 ORIF, fracture, metatarsal bone SYNDESMOSIS TIGHTROPE FDA Start: 02-22-2019 ORIF, fracture, metatarsal bone WASHER FDA Start: 02-22-2019 ORIF, fracture, metatarsal bone 3.0 LONG THREADED CAN SCREW FDA Start: 02-22-2019 ORIF, fracture, metatarsal bone 4.0mm Cancellous Bone Screws FDA Start: 02-22-2019 ORIF, fracture, metatarsal bone 4.0mm Cancellous Screw FDA Start: 02-22-2019 ORIF, fracture, metatarsal bone 4.5 MM PART THREADED CAN SCREW FDA Start: 02-22-2019 ORIF, fracture, metatarsal bone 7mm Washer FDA Start: 02-22-2019 ORIF, fracture, metatarsal bone SWIVELOCK,4.75 DOUBLE LOCK FDA Start: 02-22-2019 ORIF, fracture, metatarsal bone SYNDESMOSIS TIGHTROPE FDA Start: 02-22-2019 ORIF, fracture, metatarsal bone WASHER FDA Start: 02-22-2019 ORIF, fracture, metatarsal bone 3.0 LONG THREADED CAN SCREW FDA Start: 02-22-2019 ORIF, fracture, metatarsal bone 4.0mm Cancellous Bone Screws FDA Start: 02-22-2019 ORIF, fracture, metatarsal bone 4.0mm Cancellous Screw FDA Start: 02-22-2019 ORIF, fracture, metatarsal bone 4.5 MM PART THREADED CAN SCREW FDA Start: 02-22-2019 ORIF, fracture, metatarsal bone 7mm Washer FDA Start: 02-22-2019 ORIF, fracture, metatarsal bone SWIVELOCK,4.75 DOUBLE LOCK FDA Start: 02-22-2019 ORIF, fracture, metatarsal bone SYNDESMOSIS TIGHTROPE FDA Start: 02-22-2019 ORIF, fracture, metatarsal bone WASHER FDA Start: 02-22-2019 ORIF, fracture, metatarsal bone 3.0 LONG THREADED CAN SCREW FDA Start: 02-22-2019 ORIF, fracture, metatarsal bone 4.0mm Cancellous Bone Screws FDA Start: 02-22-2019 ORIF, fracture, metatarsal bone 4.0mm Cancellous Screw FDA Start: 02-22-2019 ORIF, fracture, metatarsal bone 4.5 MM PART THREADED CAN SCREW FDA Start: 02-22-2019 ORIF, fracture, metatarsal bone 7mm Washer FDA Start: 02-22-2019 ORIF, fracture, metatarsal bone SWIVELOCK,4.75 DOUBLE LOCK FDA Start: 02-22-2019 ORIF, fracture, metatarsal bone SYNDESMOSIS TIGHTROPE FDA Start: 02-22-2019 ORIF, fracture, metatarsal bone WASHER FDA Start: 02-22-2019 Drug-eluting coronary artery stent, rim-xvpuwghyaveyf-ql lymer-coated [id number] FDA Start: 07-18-2022 Goals Date Patient Goal Desired Activity /State Functional Status Date Assessment Result Facility 07-19-2022 Functional status Ambulates [facility] Work Phone: 01-26-2015 Are you deaf, or do you have serious difficulty hearing No 01/26/2015 5:50 PM EDT Terese Orourke MA [facility] 01-26-2015 Are you blind, or do you have serious difficulty seeing, even when wearing glasses No 01/26/2015 5:50 PM EDT Terese Orourke MA No [facility] 01-26-2015 Do you have serious difficulty walking or climbing stairs No 01/26/2015 5:50 PM EDT Terese Orourke MA [facility] 01-26-2015 Do you have difficul ty dressing or bathing No 01/26/2015 5:50 PM EDT Terese Orourke MA No [facility] 01-26-2015 Because of a physica l, mental, or emotional condition, do you have difficulty doing errands alone such as visiting a physician's office or shopping No 01/26/2015 5:50 PM EDT Terese Orourke MA [facility] Mental Status Date Assessment Result Facility 07-19-2022 Cognitive function Voice/Name [facility] Work Phone: 01-26-2015 Because of a physica l, mental, or emotional condition, do you have serious difficulty concentrating, remembering, or making decisions No 01/26/2015 5:50 PM EDT Terese Orourke MA No [facility] Clinical Notes 10-28-2015 to 03-18-2025 Telephone Encounter - Pato Brewster LPN - 03/18/2025 11:57 AM EDTTelephone Encounter - Pato Brewster LPN - 03/18/2025 11:57 AM EDTTelephone Encounter - Paris Jamil LPN - 03/13/2025 3:38 PM EDT Note Date & Type Note Facility 03-18-2025 Telephone encount er Note Patient did not return call. [facility] 03-18-2025 Miscellaneous Notes Formattin g of this note might be different from the original. Patient did not return call. Dr. Wilcox has never prescribed the losartan. Has he been getting this from cardiology? If so he will need to contact cardiology to request a short supply. Attempted to contact patient with no answer and unable to leave message due to mailbox is full. Patient only needs a short term of the following Rx to go to [facility] until he receives the mail order Rx. Patient has been identified by name and date of : Yes Patient phones for refill(s): Requested Prescriptions Pending Prescriptions Disp Refills losartan (COZAAR) 25 mg tablet 90 tablet Sig: Take 1 tablet by mouth once daily. Date of last office visit in primary care: 02/27/2025 Date of next office visit in primary care: 03/13/2025 He asked for the office to call him when this is sent to [facility] [place] [phone] Please advise. Thank you. Josefina Medel. documented in this encounter [facility] 03-14-2025 Telephone encount er Note The following approved medication requests have been transmitted electronically. Requested Prescriptions Pending Prescriptions Disp Refills famotidine (PEPCID) 20 mg tablet 90 tablet 3 Sig: Take 1 tablet by mouth daily at bedtime. Tara Charles APRN.CNP [facility] 03-14-2025 Miscellaneous Notes Formattin g of this note is different from the original. The following approved medication requests have been transmitted electronically. Requested Prescriptions Pending Prescriptions Disp Refills famotidine (PEPCID) 20 mg tablet 90 tablet 3 Sig: Take 1 tablet by mouth daily at bedtime. Tara Charles APRN.CNP Patient has been identified by name and date of : Yes Patient phones for refill(s): famotidine (PEPCID) 20 mg tablet Date of last office visit in primary care: 02/27/2025 Date of next office visit in primary care: 06/20/2025 [facility] Please advise. Thank you. Josefina Medel. documented in this encounter [facility] 03-13-[address] Note Dr. Wilcox has never prescribed the losartan. Has he been getting this from cardiology? If so he will need to contact cardiology to request a short supply. Attempted to contact patient with no answer and unable to leave message due to mailbox is full. [facility] 03-13-2025 Telephone encount er Note Patient has been identified by name and date of : Yes Patient phones for refill(s): famotidine (PEPCID) 20 mg tablet Date of last office visit in primary care: 02/27/2025 Date of next office visit in primary care: 06/20/2025 [facility] Please advise. Thank you. Josefina Medel. [facility] 03-13-2025 Telephone encount er Note Patient only needs a short term of the following Rx to go to [facility] until he receives the mail order Rx. Patient has been identified by name and date of : Yes Patient phones for refill(s): Requested Prescriptions Pending Prescriptions Disp Refills losartan (COZAAR) 25 mg tablet 90 tablet Sig: Take 1 tablet by mouth once daily. Date of last office visit in primary care: 02/27/2025 Date of next office visit in primary care: 03/13/2025 He asked for the office to call him when this is sent to [facility] [place] [phone] Please advise. Thank you. Josefina Medel. [facility] 02-27-2025 Note HNO ID: [id number] Author: TARA CHARLES APRN.CHIEF OPERATOR HYDROFORMER Service: ? Author Type: Nurse Practitioner Type: Progress Notes Filed: 02/27/2025 14:32 Note Text: This is a 69 year old male who presents today with: Patient presents with: ER F/U: [facility] 02/20/25 Cellulitis of right earlobe HISTORY OF PRESENT ILLNESS: Ketan Cotton is a 69 year old male. Patient presents with: ER F/U: [facility] 02/20/25 Cellulitis of right earlobe Patient was seen at [facility] on February 20, 2025 for ear problem. Painful swollen right ear with lymph node pain and swelling. Has been ongoing for days. Palpation of lymph node. Increased redness. Fever of 100.2. History of diabetes. He was prescribed cephalexin. Took a dose at 4 and a dose prior to arrival. Denies any other symptoms. Patient does have hives to amoxicillin when he was younger. Has taken cephalexin and other cephalosporins without reaction. He also has a history of hyperlipidemia, non-ST elevation myocardial infarction, compression fracture of the thoracic spine and ventricular tachycardia. Patient has cellulitis of his ear. No evidence to suggest parotid gland infection. No evidence to suggest external otitis. WBC 8.0, hemoglobin 14.7, hematocrit 43.3, platelet count 179 Lymphocytes 16.8, monocytes 15.5 Absolute differential is okay. Sodium 140, potassium 4.3, BUN 18, creatinine 1.0, glucose 135 GFR 80.23, lactic acid 1.4, calcium 9.2 Patient was not prescribed any change in therapy. Was instructed to take his antibiotic until prescription complete. Timmy Cotton is a 69-year-old male presenting for follow-up of a recent ear infection. Ear Infection: - Recent ear infection with significant pain and swelling. - Denies current odynophagia, nausea, emesis, or diarrhea post-antibiotic treatment. - Reports one night of fever and chills. - Denies dyspnea, cough, or wheezing. - Suspects a connection between ear infection and chronic skin conditions (psoriasis and eczema). PAST MEDICAL HISTORY: PAST MEDICAL HISTORY Diagnosis Date Arthritis Benign [...] SURGERY HX FRACTURE SURGERY HEMORRHOID SURGERY HX [id number] [place] HERNIA REPAIR HX PAST SURGICAL HISTORY [...] BIOPSY HX TONSILLECTOMY HX TONSILLECTOMY PRIMARY/SECONDARY Tonsillectomy ALLERGIES Baycol, Erythromycin, Lipitor [Atorvastatin Calcium], Niaspan [Niacin], Penicillins, and Seasonal Allergies MEDICATIONS Current Outpatient Medications Medication Sig tamsulosin (FLOMAX) 0.4 mg Take 1 capsule by mouth daily at bedtime. esomeprazole (NEXIUM) 40 mg capsule Take 1 capsule by mouth once daily. rosuvastatin (CRESTOR) 20 mg tablet Take 1 tablet by mouth daily at bedtime. fluticasone-salmeterol (ADVAIR DISKUS) 250-50 mcg/dose inhaler Inhale 1 Puff as instructed two times a day. Rinse and gargle mouth after use with water. nitroglycerin sublingual (NITROQUICK) 0.4 mg SL tablet Dissolve 1 tablet under the tongue every 5 minutes as needed for chest pain. melatonin 10 mg tab Take 10 mg by mouth daily at bedtime. losartan (COZAAR) 25 mg tablet Take 25 mg by mouth once daily. aspirin, enteric coated (ASPIRIN, ENTERIC COATED) 81 mg EC tablet Take 81 mg by mouth daily with breakfast. metoprolol succinate ER (TOPROL XL) 25 mg 24 hr tablet Take 25 mg by mouth once daily. diclofenac (VOLTAREN) 1 % topical gel Apply 2 g to affected area twice daily as needed. COMPOUNDED PRESCRIPTION [facility] Push Brace to be used daily as directed. Compression Knee Highs KNEE HIGH COMPRESSION STOCKINGS 20-30 MM. DX: EDEMA, varicose veins mult (more content not included)... [facility] 02-27-2025 History of Presen t illness Narrative This is a 69 year old male who presents today with: Patient presents with: ER F/U: [facility] 02/20/25 Cellulitis of right earlobe HISTORY OF PRESENT ILLNESS: Ketan Cotton is a 69 year old male. Patient presents with: ER F/U: [facility] 02/20/25 Cellulitis of right earlobe Patient was seen at [facility] on February 20, 2025 for ear problem. Painful swollen right ear with lymph node pain and swelling. Has been ongoing for days. Palpation of lymph node. Increased redness. Fever of 100.2. History of diabetes. He was prescribed cephalexin. Took a dose at 4 and a dose prior to arrival. Denies any other symptoms. Patient does have hives to amoxicillin when he was younger. Has taken cephalexin and other cephalosporins without reaction. He also has a history of hyperlipidemia, non-ST elevation myocardial infarction, compression fracture of the thoracic spine and ventricular tachycardia. Patient has cellulitis of his ear. No evidence to suggest parotid gland infection. No evidence to suggest external otitis. WBC 8.0, hemoglobin 14.7, hematocrit 43.3, platelet count 179 Lymphocytes 16.8, monocytes 15.5 Absolute differential is okay. Sodium 140, potassium 4.3, BUN 18, creatinine 1.0, glucose 135 GFR 80.23, lactic acid 1.4, calcium 9.2 Patient was not prescribed any change in therapy. Was instructed to take his antibiotic until prescription complete. Timmy Cotton is a 69-year-old male presenting for follow-up of a recent ear infection. Ear Infection: - Recent ear infection with significant pain and swelling. - Denies current odynophagia, nausea, emesis, or diarrhea post-antibiotic treatment. - Reports one night of fever and chills. - Denies dyspnea, cough, or wheezing. - Suspects a connection between ear infection and chronic skin conditions (psoriasis and eczema). PAST MEDICAL HISTORY: PAST MEDICAL HISTORY Diagnosis Date Arthritis Benign [...] HX FRACTURE SURGERY HEMORRHOID SURGERY HX 2017 [id number] [place] HERNIA REPAIR HX PAST SURGICAL HISTORY [...] HX TONSILLECTOMY PRIMARY/SECONDARY <AGE 12 Tonsillectomy ALLERGIES Baycol, Erythromycin, Lipitor [Atorvastatin Calcium], Niaspan [Niacin], Penicillins, and Seasonal Allergies MEDICATIONS Current Outpatient Medications Medication Sig tamsulosin (FLOMAX) 0.4 mg Take 1 capsule by mouth daily at bedtime. esomeprazole (NEXIUM) 40 mg capsule Take 1 capsule by mouth once daily. rosuvastatin (CRESTOR) 20 mg tablet Take 1 tablet by mouth daily at bedtime. fluticasone-salmeterol (ADVAIR DISKUS) 250-50 mcg/dose inhaler Inhale 1 Puff as instructed two times a day. Rinse and gargle mouth after use with water. nitroglycerin sublingual (NITROQUICK) 0.4 mg SL tablet Dissolve 1 tablet under the tongue every 5 minutes as needed for chest pain. melatonin 10 mg tab Take 10 mg by mouth daily at bedtime. losartan (COZAAR) 25 mg tablet Take 25 mg by mouth once daily. aspirin, enteric coated (ASPIRIN, ENTERIC COATED) 81 mg EC tablet Take 81 mg by mouth daily with breakfast. metoprolol succinate ER (TOPROL XL) 25 mg 24 hr tablet Take 25 mg by mouth once daily. diclofenac (VOLTAREN) 1 % topical gel Apply 2 g to affected area twice daily as needed. COMPOUNDED PRESCRIPTION CMC Push Brace to be used daily as directed. Compression Knee Highs KNEE HIGH COMPRESSION STOCKINGS 20-30 MM. DX: EDEMA, varicose veins afhiuekg-apo-GA-lycopen-lutein (CENTRUM SILVER MEN) 300-600-300 mcg tab Take 1 tablet by mouth once daily. No current facility-administered medications for this visit. FAMILY HISTORY Problem Relation Age of Onset Alzheimer's Disease Father Coronary Artery Disease Mother Heart Mother other (stomach problems) Mother open heart surgery,ashd,diabetes Cataract Maternal Grandfather Cataract Paternal Grandmother Cataract Paternal Grandfather other (obese) Sister Social History Tobacco Use Smoking status: Never Smokeless tobacco: Never Vaping Use Vaping status: Never Used Substance Use Topics Alcohol use: Yes Comment: ocassional Drug use: No REVIEW OF SYSTEMS Constitutional: (-) fever, (-) chills Ears/Nose/Mouth/Throat: (-) dysphagia Respiratory: (-) shortness of breath, (-) cough, (-) wheeze Gastrointestinal: (-) nausea, (-) vomiting, (-) diarrhea EXAM: BP 116/68 Pulse 65 Temp 36.6 C (97.8 F) (Left Tympanic) Wt 92.5 kg (204 lb) SpO2 95% BMI 30.13 kg/m PHYSICAL EXAM: GENERAL: NAD, alert and oriented SKIN: unremarkable, no rash or skin lesions. HEAD: normocephalic EARS: external ears normal, canals clear, TM's normal. OROPHARYNX: lips, mucosa, and tongue normal, good dentition. No oral lesions noted. NECK: Supple, no lymphadenopathy, normal thyroid, no carotid bruits. LUNGS: Clear to auscultation bilaterally, no wheezes/rhonchi/rales. HEART: Regular rate and rhythm, no murmurs. No ectopy. NEURO: Awake, alert and oriented x3, cranial nerves II-XII grossly intact, normal gait, no involuntary motions LABS: ASSESSMENT/PLAN: 1. Acute diffuse otitis externa of right ear - ICD9: 380.10, ICD10: H60.311 Resolved - Antibiotic complete Discussed treatment plan and patient voices understanding. Patient's questions answered appropriately. Medications and potential side effects were discussed and patient voices understanding. Return to the office as scheduled or as needed for worsening/no improvement. Tara Charles APRN.ADRIANNA documented in this encounter [facility] 02-21-2025 Note HNO ID: [id number] Author: EDEL RAMOS MA Service: ? Author Type: Dance Hall Hostess Type: Progress Notes Filed: 02/21/2025 11:24 Note Text: POPULATION HEALTH NAVIGATION OUTREACH Action/FYI Spoke with patient Declines to schedule ER Follow up Reason for Outreach Community Monitoring/Network Navigator Pools AND Phone Line: CM Pool Care Gaps due: Follow-up Appointment Patient Contacted: Spoke to patient/parent/or legal guardian Patient identified by name and : Yes Community Monitoring/Network Navigator Pools AND Phone Line actions taken: Patient declined: Doesn't feel it's necessary Navigation Signature: Edel Ramos MA February 21, 2025 11:23 AM [facility] 02-21-2025 History of Presen t illness Narrative POPULATION HEALTH NAVIGATION OUTREACH Action/FYI Spoke with patient Declines to schedule ER Follow up Reason for Outreach Community Monitoring/Network Navigator Pools & Phone Line: CM Pool Care Gaps due: Follow-up Appointment Patient Contacted: Spoke to patient/parent/or legal guardian Patient identified by name and : Yes Community Monitoring/Network Navigator Pools & Phone Line actions taken: Patient declined: Doesn't feel it's necessary Navigation Signature: Edel Ramos MA February 21, 2025 11:23 AM ACM YAHIR RN Patient identified by name and date of . Reason for review or outreach: Chart Review Yahir Priority Emergency Department Utilization REQUESTED ACTION/FYI: Please see ED Utilization summary below A follow-up appointment is not noted in patient's record. We are forwarding this patient to Network Navigation to schedule a [facility] 02/20/25 PCP follow-up appointment 1 week. Thank you Exclusion Criteria Does not meet exclusion criteria ED DIAGNOSES/REASON(S) FOR ED USE: [facility] 02/20/25 Rt. ear Cellulitis . OTHER FINDINGS/SUMMARY: Patient given atb Keflex at [facility] Advised PCP F/U Patient Attributed To: SHARDA Payer: Patito GARCÍA Action Taken: Referrals/Routed: Population Health Navigation: Appointment. Router to COMMUNITY MONITORING PSS POOL [[id number]] Contact made with patient: No, Chart review only. Signature: Kathy SEQUEIRA,RN,[facility] Emergency Nurse Management Contract RN [phone] documented in this encounter [facility] 02-21-2025 Note HNO ID: [id number] Author: KATHY CHÁVEZ RN Service: ? Author Type: Registered Nurse Type: Progress Notes Filed: 02/21/2025 11:10 Note Text: ACM YAHIR RN Patient identified by name and date of . Reason for review or outreach: Chart Review Yahir Priority Emergency Department Utilization REQUESTED ACTION/FYI: Please see ED Utilization summary below A follow-up appointment is not noted in patient's record. We are forwarding this patient to Network Navigation to schedule a [facility] 02/20/25 PCP follow-up appointment 1 week. Thank you Exclusion Criteria Does not meet exclusion criteria ED DIAGNOSES/REASON(S) FOR ED USE: [facility] 02/20/25 Rt. ear Cellulitis . OTHER FINDINGS/SUMMARY: Patient given atb Keflex at [facility] Advised PCP F/U Patient Attributed To: E Payer: Patito GARCÍA Action Taken: Referrals/Routed: Population Health Navigation: Appointment. Router to [facility] [[id number]] Contact made with patient: No, Chart review only. Signature: Kathy Chávez MSN,RN,[facility] Emergency Nurse Management Contract RN [phone] [facility] 02-21-2025 Note Patient Outreach ([facility] KETAN COTTON ([id number]) 1955 M Date Time Provider Department 02/21/25 KATHY CHÁVEZ [facility] During your visit today, we recorded the following information about you: Kathy Chávez RN 02/21/2025 11:10 AM Signed ACM YAHIR RN Patient identified by name and date of . Reason for review or outreach: Chart Review Yahir Priority Emergency Department Utilization REQUESTED ACTION/FYI: Please see ED Utilization summary below A follow-up appointment is not noted in patient's record. We are forwarding this patient to Network Navigation to schedule a [facility] 02/20/25 PCP follow-up appointment 1 week. Thank you Exclusion Criteria Does not meet exclusion criteria ED DIAGNOSES/REASON(S) FOR ED USE: [facility] 02/20/25 Rt. ear Cellulitis . OTHER FINDINGS/SUMMARY: Patient given atb Keflex at [facility] Advised PCP F/U Patient Attributed To: SHARDA Payer: Patito GARCÍA Action Taken: Referrals/Routed: Population Health Navigation: Appointment. Router to COMMUNITY MONITORING PSS POOL [[id number]] Contact made with patient: No, Chart review only. Signature: Kathy SEQUEIRA,RN,[facility] Emergency Nurse Management Contract RN [phone] Edel Ramos MA 02/21/2025 11:24 AM Signed POPULATION HEALTH NAVIGATION OUTREACH Action/FYI Spoke with patient Declines to schedule ER Follow up Reason for Outreach Community Monitoring/Network Navigator Pools AND Phone Line: Pool Care Gaps due: Follow-up Appointment Patient Contacted: Spoke to patient/parent/or legal guardian Patient identified by name and : Yes Community Monitoring/Network Navigator Pools AND Phone Line actions taken: Patient declined: Doesn't feel it's necessary Navigation Signature: Edel Ramos MA February 21, 2025 11:23 AM Allergies As of Date: 02/21/2025 Noted Allergy Reaction BAYCOL 07/05/2023 5 - Intolerance Comments: Leg cramps ERYTHROMYCIN 08/30/2005 5 - Intolerance Comments: GI upset LIPITOR (ATORVASTATIN CALCIUM) 08/30/2005 5 - Intolerance Comments: leg pain,weakness NIASPAN (NIACIN) 10/04/2010 4 - Hives PENICILLINS 08/30/2005 4 - Hives Comments: hives SEASONAL ALLERGIES 07/05/2023 14 - Other: See Comments Comments: Cockroaches, trees, weeds Date Reviewed: 02/20/2025 Reviewed by: Magdalene Simmons MA - Fully Assessed Prescriptions as of 02/21/2025 - cephALEXin (KEFLEX) 500 mg capsule Take 1 capsule by mouth four times daily for 5 days. - tamsulosin (FLOMAX) 0.4 mg Take 1 capsule by mouth daily at bedtime. - esomeprazole (NEXIUM) 40 mg capsule Take 1 capsule by mouth once daily. - rosuvastatin (CRESTOR) 20 mg tablet Take 1 tablet by mouth daily at bedtime. - fluticasone-salmeterol (ADVAIR DISKUS) 250-50 mcg/dose inhaler Inhale 1 Puff as instructed two times a day. Rinse and gargle mouth after use with water. - nitroglycerin sublingual (NITROQUICK) 0.4 mg SL tablet Dissolve 1 tablet under the tongue every 5 minutes as needed for chest pain. - melatonin 10 mg tab Take 10 mg by mouth daily at bedtime. - losartan (COZAAR) 25 mg tablet Take 25 mg by mouth once daily. - aspirin, enteric coated (ASPIRIN, ENTERIC COATED) 81 mg EC tablet Take 81 mg by mouth daily with breakfast. - metoprolol succinate ER (TOPROL XL) 25 mg 24 hr tablet Take 25 mg by mouth once daily. - diclofenac (VOLTAREN) 1 % topical gel Apply 2 g to affected area twice daily as needed. - COMPOUNDED PRESCRIPTION CMC Push Brace to be used daily as directed. - Compression Knee Highs KNEE HIGH COMPRESSION STOCKINGS 20-30 MM. DX: EDEMA, varicose veins - dvgleqqt-oko-IN-lycopen-lutein (CENTRUM SILVER MEN) 300-600-300 mcg tab Take 1 tablet by mouth once daily. Problem List As Of Date 02/21/2025 Noted Resolved FX RADIUS HEAD-CLOSED [S52.123A] 09/22/2003 ACUTE GASTRITIS W/O HEMORRHAGE [K29.00] ENTHESOPATHY OF HIP [M76.899] ESOPHAGEAL REFLUX [K21.9] Hyperlipidemia [E78.5] Screening for colon cancer [Z12.11] 11/05/2010 09/19/2022 Benign neoplasm of rectum and anal canal [D12.8*11/05/2010 Internal hemorrhoids without mention of complic*11/05/2010 Generalized anxiety disorder [F41.1] 10/09/2015 Other social stressor [Z65.9] 10/09/2015 09/19/2022 Dizziness [R42] 10/19/2015 09/19/2022 Bilateral carotid artery stenosis [I65.23] 10/28/2015 Stress and adjustment reaction [F43.29] 03/03/2016 Hypogonadism in male [E29.1] Left foot drop [M21.372] 03/21/2018 Neck pain [M54.2] 03/21/2018 09/19/2022 Gastroesophageal reflux disease with esophagiti*12/10/2020 06/17/2024 NOE (obstructive sleep apnea) [G47.33] 09/19/2022 Coronary artery disease involving [place] heart *03/20/2023 Obesity, Class I, BMI 30-34.9 [E66.811] 12/16/2024 Encounter Status:Closed by KATHY CHÁVEZ on 02/21/25 [facility] 02-20-2025 Discharge summary [facility] 02-20-2025 Note HNO ID: [id number] Author: JOSE PABLO APRN.CHIEF OPERATOR HYDROFORMER Service: ? Author Type: Nurse Practitioner Type: Progress Notes Filed: 02/20/2025 16:35 Note Text: URGENT CARE [facility] Ketan Cotton is a 69 year old male. Patient presents with: Ear Problem: R ear lobe swollen x4 days, warm to touch, low fever HPI Right Ear Pain and Swelling: - Onset 3-4 days ago. - Associated with swelling and pain in the lymph nodes under the ear. - Earlobe is swollen and painful; denies previous swelling. - Denies muffled hearing due to ear pain; has baseline hearing loss. - Reports a history of pruritus behind the ear, leading to excoriation and serous drainage. - Applied a topical cream to the area 4 days ago; suspects possible contamination. - Denies current open sores in the crease behind the ear. Review of Systems Ears/Nose/Mouth/Throat: (+) right ear pain, (+) right earlobe pain, (+) hearing loss Hematologic/Lymphatic: (+) swollen painful lymph nodes under right ear Objective BP 120/78 Pulse 67 Temp 37.3 ?C (99.2 ?F) Resp 18 Wt 93.9 kg (207 lb 0.2 oz) SpO2 97% BMI 30.57 kg/m? Physical Exam General: No acute distress. HEENT: Throat normal; left ear normal; right ear with erythema and slight swelling, tenderness of right earlobe; lymphadenopathy under right ear. CV: Heart sounds normal. Resp: Breath sounds normal. { # Cellulitis of skin (L03.90) # Cellulitis of right external ear (H60.11) - Acute onset of right external ear pain, swelling, and erythema for 3-4 days; exam notable for tenderness, swelling, and erythema of right earlobe. - Start Keflex QID for 5 days. - Advised patient to seek immediate care in the ER or follow up with primary care if symptoms worsen or do not improve. - Patient agreed with the care plan. and Recording using ambient [employer] software for draft documentation of the visit was discussed with the patient/authorized circulation representative; all questions welcomed and answered. Patient/authorized circulation representative agreed to proceed MDM Procedures [facility] 02-20-2025 History of Present illness Narrative [facility] Ketan Cotton is a 69 year old male. Patient presents with: Ear Problem: R ear lobe swollen x4 days, warm to touch, low fever HPI Right Ear Pain and Swelling: - Onset 3-4 days ago. - Associated with swelling and pain in the lymph nodes under the ear. - Earlobe is swollen and painful; denies previous swelling. - Denies muffled hearing due to ear pain; has baseline hearing loss. - Reports a history of pruritus behind the ear, leading to excoriation and serous drainage. - Applied a topical cream to the area 4 days ago; suspects possible contamination. - Denies current open sores in the crease behind the ear. Review of Systems Ears/Nose/Mouth/Throat: (+) right ear pain, (+) right earlobe pain, (+) hearing loss Hematologic/Lymphatic: (+) swollen painful lymph nodes under right ear Objective BP 120/78 Pulse 67 Temp 37.3 C (99.2 F) Resp 18 Wt 93.9 kg (207 lb 0.2 oz) SpO2 97% BMI 30.57 kg/m Physical Exam General: No acute distress. HEENT: Throat normal; left ear normal; right ear with erythema and slight swelling, tenderness of right earlobe; lymphadenopathy under right ear. CV: Heart sounds normal. Resp: Breath sounds normal. { # Cellulitis of skin (L03.90) # Cellulitis of right external ear (H60.11) - Acute onset of right external ear pain, swelling, and erythema for 3-4 days; exam notable for tenderness, swelling, and erythema of right earlobe. - Start Keflex QID for 5 days. - Advised patient to seek immediate care in the ER or follow up with primary care if symptoms worsen or do not improve. - Patient agreed with the care plan. and Recording using ambient [employer] software for draft documentation of the visit was discussed with the patient/authorized circulation representative; all questions welcomed and answered. Patient/authorized circulation representative agreed to proceed MDM Procedures documented in this encounter [facility] 02-20-2025 Discharge summary Note Date/Time February 20, 2025 8:44pm [facility] Medical Records Department [address] [address] Emergency Department Summary 02/20/25 MR#: [id number] Acct: [id number] Name: KETAN COTTON Rep #:[id number] : 1955 69 From: Juventino Naranjo MD PCP: Dr. Blkae Wilcox MD Status:REG E R Location: ED HPI History of Present Illness Chief Complaint: Ear Problem Detail of Chief Complaint: Painful swollen right ear with lymph node pain and swelling Informant: patient and spouse/S.O. Onset/Context/Timing Onset: Days Context: Sudden Onset Timing: Continuous Quality: Swelling of the right ear and pain Location: Right Current Severity: Mild Maximum Severity: Moderate Worsened by: Palpation of lymph nodes Relieved by: Nothing Associated Symptoms Associated Symptoms: Increased swelling redness and temperature 100.2 Narrative Narrative: Patient is a 69-year-old male. He does not have history of diabetes and is on no immunosuppressive meds. He was seen this afternoon at urgent care. Diagnosed with infection. He was prescribed cephalexin 500 mg. He took a dose at 4:00 and a dose prior to arrival. He denies any other symptoms. Patient had hives to amoxicillin when he was younger. He has taken cephalexin and other cephalosporins without reaction. He does have history of hyperlipidemia, non-ST elevation NM, compression fracture thoracic spine and V. tach. Prior similar symptoms: Yes Recent Illness/Hospitalization: [facility] Medical History Chest pain Hyperlipidemia Atherosclerotic heart disease of [place] coronary artery without angina pectoris Non-ST elevation NM (NSTEMI) Hemorrhoids Enthesopathy of hip region GERD (gastroesophageal reflux disease) Generalized anxiety disorder History of vitamin D deficiency Home Medications ?Medication ?Instructions ?Recorded ?Last Taken ?Type multivitamin 1 tab PO DAILY Check with pr imary 07/16/22 Unknown History doctor tamsulosin 0.4 mg capsule 0.4 mg PO DAILY Check with p rimary 07/16/22 Unknown History doctor aspirin 81 mg tablet,delayed 81 mg PO BREAKFAST #30 ta bs 08/19/22 Unknown Rx release diclofenac sodium 1 % topical gel 2 g topical ONCE PRN skin 01/09/23 Unknown History irritation albuterol sulfate 90 mcg/actuation 2 puff inhalation Q 6H PRN 06/15/23 Unknown History aerosol inhaler shortness of breath or wheez ing nitroglycerin 0.4 mg sublingual 0.4 mg sublingual Q5M PRN 07/05/23 Unknown Rx tablet Cardiac/Chest Pain #25 tabs loratadine 10 mg tablet 10 mg PO DAILY Allergies Unknown History fluticasone 250 mcg-salmeterol 50 1 ea inhalation BID PRN shortness 07/15/24 Unknown History mcg/dose blistr powdr for of breath or wheezing inhalation metoprolol succinate 25 mg 25 mg PO DAILY #90 tabs Unknown Rx tablet,extended release 24 hr (Toprol XL) losartan 25 mg tablet 25 mg PO DAILY #90 tabs 09/29 01/22 Unknown Rx rosuvastatin 20 mg tablet See Rx Instructions .Route 0 10/23/24 Unknown Rx .COMPLEX #90 tabs ferrous sulfate 325 mg (65 mg 325 mg PO QDAY 02/19/25 Unknown History iron) tablet (Feosol) esomeprazole magnesium 40 mg 40 mg PO Q24H 02/20/25 Un known History capsule,delayed release Allergy/AdvReac Type Severity Reaction Status Date / Time erythromycin base Allergy Intermediate Nausea/Vom/ Verified 02/20/25 19:40 Diarrhea niacin (From Niaspan Allergy Intermediate Hives Verified 02/20/25 19:40 Extended-Release) Penicillins Allergy Unknown Verified 02/20/25 19:40 atorvastatin AdvReac Intermediate myalgias Verified 02/20/25 19:40 cerivastatin (From Baycol) AdvReac Intermediate leg cramps Verified 02/20/25 19:40 Family History Father Alzheimer's disease Mother CAD (coronary artery disease) Diabetes Heart disease open heart surgery History of motor vehicle accident Surgical History Stented coronary artery (07/18/22) History of foot surgery (~07/2019) History of varicose vein stripping History of surgery on upper extremity History of hemorrhoidectomy History of open reduction and internal fixation (ORIF) procedure History of umbilical hernia repair History of tonsillectomy H/O arthroscopy of knee S/P excision of neuroma Social History Smoking Status: Never smoker second hand exposure: Yes alcohol intake: current alcohol intake frequency: a few times a month substance use type: does not use caffeine: Yes Type: coffee Number of servings: 1 ROS ROS ED Constitutional Constitutional ED: Reports chills and fever(s); Denies subjective or sweats Eyes Eyes: Denies blurry vision or change in vision ENT ENT ED: Reports ear pain right; Denies rhinorrhea or sore throat Cardiovascular Cardiovascular: Denies chest pain Respiratory/Chest Respiratory/Chest: Denies dyspnea Gastrointestinal Gastrointestinal: Denies nausea or vomiting Hematologic/Lymphatic Hematologic/Lymphatic: Reports systems reviewed and no addt'l complaints, exceptas documented Allergic/Immunologic Allergic/Immunologic ED: Denies mouth swelling or tongue swelling EXAM Physical Exam Const Vital Signs: 02/20/25 19:41 02/20/25 19:43 Temperature 100.2 F H 100.2 F H Temperature Source Oral Oral Pulse Rate 76 73 Respiratory Rate 18 18 Blood Pressure 128/86 H 128/86 H Blood Pressure Mean 100 100 Pulse Ox 97 97 Oxygen Delivery Method Room Air Room Air Positive well nourished and well developed Constitutional Narrative: Vitals are remarkable for temperature of 100.2. He may not be tachycardic sincehe is on beta-oscar. General Appearance ED: well developed; Negative for pallor HEENT Reports TM's clear and moist mucous membranes HEENT Narrative: Head is atraumatic normocephalic. Right ear is swollen compared to left. Rightear it is erythematous warm to touch. There is no discomfort pulling on the auricle portion of the tragus. External auditory canal is normal. TM is normal. Patient does have cervical lymphadenopathy. tenderness Tympanic Membrane ED: Yes TM's clear Eyes PERRL and EOMs intact bilaterally General Eye ED: Negative for pale conjunctiva or scleral icterus Neck No no lymphadenopathy, supple and no JVD General: tenderness Resp normal respiratory effort and clear to auscultation bilaterally Cardio regular rate, regular rhythm, S1 normal heart sound, S2 normal heart sound and no murmurs Psych mental status grossly normal Skin No no rashes or lesions noted, no wounds and skin turgor normal General Skin Exam: Negative for jaundice or pallor MDM MDM MDM Narrative Medical decision making narrative: Patient has cellulitis of his ear. There is no evidence or suggestion of a parotid gland infection. There is no evidence or suggestion of external otitis. The patient's symptoms of gotten worse we will obtain blood work to assess for endorgan dysfunction and assess likelihood of successful outpatient therapy. Nicholasll receive a dose of IV antibiotics in the emergency department. Lab Data Attestation: I reviewed the patient's lab results. Lab results narrative: CBC is unremarkable. Basic metabolic panel is unremarkable. Glucose elevated 135. Lactates normal. Labs: Laboratory Results - last 24 hr 02/20/25 20:00 WBC 8.0 RBC 4.73 Hgb 14.7 Hct 43.3 MCV 91.5 MCH 31.1 MCHC 33.9 RDW Std Deviation 42.5 RDW Coeff of Tere 12.8 Plt Count 179 MPV 10.1 Immature Gran % (Auto) 0.100 Neut % (Auto) 66.2 Lymph % (Auto) 16.8 L [place] % (Auto) 15.5 H Eos % (Auto) 1.0 Baso % (Auto) 0.4 Absolute Neuts (auto) 5.3 Absolute Lymphs (auto) 1.35 Nucleated RBC % 0 Sodium 140 Potassium 4.3 Chloride 104 Carbon Dioxide 25.4 Anion Gap 11 BUN 18 Creatinine 1.00 Estim Creat Clear Calc 80.23 Est GFR (MDRD) Non-Af 82 BUN/Creatinine Ratio 18.4 Glucose 135 H Lactic Acid 1.4 Calcium 9.2 Treatment and Re-Evaluation :: Since he has a normal white count he will be discharged to home. Patient was told that it is not unusual for things to get worse initially. Need to give theantibiotic time to work. He was told by the practitioner that saw him that if he gets worse to come in. Discharge Plan Triage Chief Complaint: Ear Problem ED Provider: Juventino Naranjo Dx/Rx/DC Orders Clinical Impression: Cellulitis of right ear, Fever in adult Instructions: ED Cellulitis Prescriptions: No Action diclofenac sodium 1 % gel 2 g topical ONCE PRN (Reason: skin irritation) albuterol sulfate 90 mcg/actuation HFA aerosol inhaler 2 puff inhalation Q6H PRN (Reason: shortness of breath or wheezing) loratadine 10 mg tablet 10 mg PO DAILY fluticasone propion-salmeterol 250-50 mcg/dose blister with device 1 ea inhalation BID PRN (Reason: shortness of breath or wheezing) ferrous sulfate [Feosol] 325 mg (65 mg iron) tablet 325 mg PO QDAY multivitamin Tablet 1 tab PO DAILY tamsulosin 0.4 mg capsule 0.4 mg PO DAILY esomeprazole magnesium 40 mg capsule,delayed release(DR/EC) 40 mg PO Q24H aspirin 81 mg tablet,delayed release (DR/EC) 81 mg PO BREAKFAST Qty: 30 11RF nitroglycerin 0.4 mg tablet, sublingual 0.4 mg sublingual Q5M PRN (Reason: Cardiac/Chest Pain) Qty: 25 3RF metoprolol succinate [Toprol XL] 25 mg tablet extended release 24 hr 25 mg PO DAILY Qty: 90 3RF rosuvastatin 20 mg tablet See Rx Instructions .ROUTE .COMPLEX Qty: 90 3RF Dose Instruction: TAKE 1 TABLET AT BEDTIME Rx Instructions: TAKE 1 TABLET AT BEDTIME losartan 25 mg tablet 25 mg PO DAILY Qty: 90 3RF Primary Care Provider: Blake Wilcox Referrals: Blake Wilcox MD [Primary Care Provider] - 3-5 Days if not improving Activity Restrictions/Additional Instructions: 1. Take the antibiotic you are prescribed until gone. 2. If there is no improvement in 48 hours follow-up with Dr. Wilcox or return to the emergency department Print Language: Kyrgyz Disposition Disposition: Home, Self Care What to do if you have Problems For any increased pain, shortness of breath, bleeding, nausea or vomiting, chestpain, or any unexpected problems, contact your Primary Care Provider. Call [facility] ([phone]) or report to the closest Emergency Room. Call 911 if necessary. 02/20/252043 <Electronically signed by Juventino Naranjo MD> Cosigner Signature (if applicable): CC: Dr. Blake Wilcox MD ~ Signed [facility] Work Phone: [phone]) 507-605007-23-2025 Evaluation note* Diagnosis Onset Date Resolution Status Admit Date Ventricular tachycardia acute J sammi 2024 10:55am Chest pain inactive February 19 10:55am [facility] Work Phone: [phone]) 850-832606-24-2025 Progress note* Result Encounter Note - Tara Charles APRN.CNP - 01/21/2025 4:48 PM EDT Your event monitor showed both runs of ventricular tachycardia and supraventricular tachycardia. I see that you are following with cardiology at [facility]. These likely are contributing to your lightheadedness. If you want us to fax these results over, please let us know. [facility]06-24-2025 Miscellaneous Notes* Result Encounter Note - Tara Charles APRN.CNP - 01/21/2025 4:48 PM EDT Your event monitor showed both runs of ventricular tachycardia and supraventricular tachycardia. I see that you are following with cardiology at [facility]. These likely are contributing to your lightheadedness. If you want us to fax these results over, please let us know. [facility] Telephone encounter Note * Telephone Encounter - Pato Brewster LPN - 01/15/2025 11:43 AM EDT Patient notified and verbalizes understanding. [facility]06-18-2025 Miscellaneous Notes* Telephone Encounter - Pato Brewster LPN - 01/15/2025 11:43 AM EDT Patient notified and verbalizes understanding. * Telephone Encounter - Blake Wilcox MD - 01/15/2025 9:38 AM EDT Let him know the monitor shows he occasionally dips down in rate but he has some episodes actually of svt or faster heart rates. Let him know we will send it over to his underwriting clerk. Can we fax the prelim zio over to Dr Carey at [facility] and let them know we ordered it because his fit bit was showing bradycardia. [facility] Telephone encounter Note * Telephone Encounter - Blake Wilcox MD - 01/15/2025 9:38 AM EDT Let him know the monitor shows he occasionally dips down in rate but he has some episodes actually of svt or faster heart rates. Let him know we will send it over to his underwriting clerk. Can we fax the prelim zio over to Dr Carey at [facility] and let them know we ordered it because his fit bit was showing bradycardia. [facility]05-19-2025 NoteHNO ID: [id number] Author: BLAKE WILCOX MD Service: ? Author Type: Physician Type: Progress Notes Filed: 12/16/2024 16:27 Note Text: Timmy is a 69-year-old male with a history of GERD, CAD, and NOE, presenting for a check-up, with additional complaints of increased reflux, lightheadedness, and knee pain. HPI GERD: - Increased reflux symptoms; describes burning acid sensation. - Previously managed with omeprazole, but prescription has run out. - Tried Pepcid with minimal relief. - EGD performed in 2020 showed no significant findings. - Denies dysphagia, melena, or hematochezia. - Currently taking iron supplements, which cause dark stools. CAD: - Followed by [facility]; next appointment with Dr. Carey on April 25. - No angina, dyspnea, or edema. - Taking aspirin and rosuvastatin (Crestor); discontinued Plavix. - Reports bradycardia with heart rate dropping to 48 bpm at night, as per Fitbit readings. - Taking metoprolol and losartan. - Occasional lightheadedness, a couple of times per week, possibly when standing up quickly. - No syncope. - Denies headaches, paresthesia, or new weakness in extremities. - Carotid arteries have been evaluated by cardiology. NOE: - Diagnosed with NOE, using CPAP machine. - Adherence to CPAP use is inconsistent. Urinary Urgency: - Recent onset of urinary urgency, with occasional minor incontinence. - Consumes caffeine sporadically, including coffee and soft drinks. - Taking tamsulosin, but prescription is running low. Knee Pain: - Increased knee pain, frequency not specified. - Previous knee X-rays in May 2024 showed no significant findings. - Discussed seeing ortho if continues. MEDICATIONS: Current Outpatient Medications Medication Sig fluticasone-salmeterol (ADVAIR DISKUS) 250-50 mcg/dose inhaler Inhale 1 Puff as instructed two times a day. Rinse and gargle mouth after use with water. nitroglycerin sublingual (NITROQUICK) 0.4 mg SL tablet Dissolve 1 tablet under the tongue every 5 minutes as needed for chest pain. melatonin 10 mg tab Take 10 mg by mouth daily at bedtime. losartan (COZAAR) 25 mg tablet Take 25 mg by mouth once daily. aspirin, enteric coated (ASPIRIN, ENTERIC COATED) 81 mg EC tablet Take 81 mg by mouth daily with breakfast. metoprolol succinate ER (TOPROL XL) 25 mg 24 hr tablet Take 25 mg by mouth once daily. diclofenac (VOLTAREN) 1 % topical gel Apply 2 g to affected area twice daily as needed. COMPOUNDED PRESCRIPTION [facility] Push Brace to be used daily as directed. Compression Knee Highs KNEE HIGH COMPRESSION STOCKINGS 20-30 MM. DX: EDEMA, varicose veins mjhttjtm-tux-YO-lycopen-lutein (CENTRUM SILVER MEN) 300-600-300 mcg tab Take 1 tablet by mouth once daily. tamsulosin (FLOMAX) 0.4 mg Take 1 capsule by mouth daily at bedtime. esomeprazole (NEXIUM) 40 mg capsule Take 1 capsule by mouth once daily. rosuvastatin (CRESTOR) 20 mg tablet Take 1 tablet by mouth daily at bedtime. No current facility-administered medications for this visit. ALLERGIES: ALLERGIES Allergen Reactions Baycol Intolerance Leg cramps Erythromycin Intolerance GI upset Lipitor [Atorvastat* Intolerance leg pain,weakness Niaspan [Niacin] Hives Penicillins Hives hives Seasonal Allergies Other: See Comments Cockroaches, trees, weeds PAST MEDICAL HISTORY Diagnosis Date Arthritis Benign [...] SURGERY HX FRACTURE SURGERY HEMORRHOID SURGERY HX [id number] [facility] HERNIA REPAIR HX PAST SURGICAL HISTORY OF 06/2002 left wrist and left elbow PAST SURGICAL HISTORY OF 05/2009 Varicose vein stripping PAST SURGICAL HISTORY OF 02/22/2019 left foot fracture/dislocation repair. Dr. Kirk PAST SURGICAL HISTORY OF Left 07/2019 Removal of screw from left ankle with placement of Tightrope implant. RPR UMBILICAL HRNA 5 YRS/> REDUCIBLE 04/03/2009 SKIN BIOPSY HX TONSILLECTOMY HX TONSILLECT (more content not included)...[facility]05-19-2025 History of Present illness Narrative* Blake Wilcox MD - 12/16/2024 4:26 PM EDT Timmy is a 69-year-old male with a history of GERD, CAD, and NOE, presenting for a check-up, with additional complaints of increased reflux, lightheadedness, and knee pain. HPI GERD: - Increased reflux symptoms; describes burning acid sensation. - Previously managed with omeprazole, but prescription has run out. - Tried Pepcid with minimal relief. - EGD performed in 2020 showed no significant findings. - Denies dysphagia, melena, or hematochezia. - Currently taking iron supplements, which cause dark stools. CAD: - Followed by [facility]; next appointment with Dr. Carey on April 25. - No angina, dyspnea, or edema. - Taking aspirin and rosuvastatin (Crestor); discontinued Plavix. - Reports bradycardia with heart rate dropping to 48 bpm at night, as per Fitbit readings. - Taking metoprolol and losartan. - Occasional lightheadedness, a couple of times per week, possibly when standing up quickly. - No syncope. - Denies headaches, paresthesia, or new weakness in extremities. - Carotid arteries have been evaluated by cardiology. NOE: - Diagnosed with NOE, using CPAP machine. - Adherence to CPAP use is inconsistent. Urinary Urgency: - Recent onset of urinary urgency, with occasional minor incontinence. - Consumes caffeine sporadically, including coffee and soft drinks. - Taking tamsulosin, but prescription is running low. Knee Pain: - Increased knee pain, frequency not specified. - Previous knee X-rays in May 2024 showed no significant findings. - Discussed seeing ortho if continues. MEDICATIONS: Current Outpatient Medications Medication Sig fluticasone-salmeterol (ADVAIR DISKUS) 250-50 mcg/dose inhaler Inhale 1 Puff as instructed two times a day. Rinse and gargle mouth after use with water. nitroglycerin sublingual (NITROQUICK) 0.4 mg SL tablet Dissolve 1 tablet under the tongue every 5 minutes as needed for chest pain. melatonin 10 mg tab Take 10 mg by mouth daily at bedtime. losartan (COZAAR) 25 mg tablet Take 25 mg by mouth once daily. aspirin, enteric coated (ASPIRIN, ENTERIC COATED) 81 mg EC tablet Take 81 mg by mouth daily with breakfast. metoprolol succinate ER (TOPROL XL) 25 mg 24 hr tablet Take 25 mg by mouth once daily. diclofenac (VOLTAREN) 1 % topical gel Apply 2 g to affected area twice daily as needed. COMPOUNDED PRESCRIPTION CMC Push Brace to be used daily as directed. Compression Knee Highs KNEE HIGH COMPRESSION STOCKINGS 20-30 MM. DX: EDEMA, varicose veins ewrqeesy-mqe-DY-lycopen-lutein (CENTRUM SILVER MEN) 300-600-300 mcg tab Take 1 tablet by mouth oncedaily. tamsulosin (FLOMAX) 0.4 mg Take 1 capsule by mouth daily at bedtime. esomeprazole (NEXIUM) 40 mg capsule Take 1 capsule by mouth once daily. rosuvastatin (CRESTOR) 20 mg tablet Take 1 tablet by mouth daily at bedtime. No current facility-administered medications for this visit. ALLERGIES: ALLERGIES Allergen Reactions Baycol Intolerance Leg cramps Erythromycin Intolerance GI upset Lipitor [Atorvastat* Intolerance leg pain,weakness Niaspan [Niacin] Hives Penicillins Hives hives Seasonal Allergies Other: See Comments Cockroaches, trees, weeds PAST MEDICAL HISTORY Diagnosis Date Arthritis Benign [...] SURGERY HX FRACTURE SURGERY HEMORRHOID SURGERY HX [id number] [facility] HERNIA REPAIR HX PAST SURGICAL HISTORY [...] Never Smokeless tobacco: Never Vaping Use Vaping status: Never Used Substance Use Topics Alcohol use: Yes Comment: ocassional Drug use: No Reviewed current medications, allergies, past medical history, surgical history, family history andsocial history today. REVIEW OF SYSTEMS Head: (-) headache Cardiovascular: (-) chest pain Respiratory: (-) shortness of breath Gastrointestinal: (+) heartburn, (-) dysphagia, (-) black/bloody stools Genitourinary: (+) urinary urgency, (+) mild incontinence Musculoskeletal: (+) knee pain Neurological: (-) numbness/tingling/weakness, (+) lightheadedness HEALTH MAINTENANCE: Reviewed health maintenance issues today and recommended the following in detail. Covid-19 Vaccine() due on 03/31/2024 Advance Directive Discussion due on 07/31/2024 LDL Cholesterol due on 08/17/2024 Depression Screening due on 12/10/2024 LAB REVIEWED: Labs: Tests: (Today) Orthostatic Vital Signs: - Blood pressure: 112/70 mmHg (supine), 110/72 mmHg (standing) - Pulse: 63 (supine) to 77 (standing) - No orthostatic changes (2020) EGD: No significant abnormalities Imaging: (May 2024) X-ray of knees: No abnormalities VITALS: BP 110/68 Pulse 65 Ht 175.3 cm (5' 9) Wt 95 kg (209 lb 6.4 oz) SpO2 96% BMI 30.92 kg/m Last 4 Encounter Wt Readings: Date: Wt: 12/16/2024 95 kg (209 lb 6.4 oz) 06/25/2024 90.3 kg (199 lb) 06/17/2024 92.4 kg (203 lb 12.8 oz) 06/10/2024 91.6 kg (202 lb) PHYSICAL EXAMINATION: GENERAL: NAD, alert and oriented. SKIN: Unremarkable, no rash or skin lesions. HEAD: Normocephalic. NECK: Supple, no lymphadenopathy, normal thyroid, no carotid bruits. LUNGS: Clear to auscultation bilaterally, no wheezes/rhonchi/rales. HEART: Regular rate and rhythm, no murmurs. No ectopy. EXTREMITIES: Normal, no deformities, no skin discoloration, no edema. NEURO: Awake, alert and oriented x3, cranial nerves II-XII grossly intact, normal gait, no involuntary motions. BP w/Orthostatic Vitals Date and Time Orthostatic BP Orthostatic Pulse BP Pulse BP Position BP Site BP Cuff Size 12/16/24 1422 110/72 77 -- -- -- -- -- 12/16/24 1421 118/72 71 -- -- -- -- -- 12/16/24 1420 112/70 63 -- -- -- -- -- 12/16/24 1345 -- -- 110/68 65 -- -- -- ASSESSMENT AND PLAN 1. Coronary artery disease involving timbi[place] shoshone heart without angina pectoris, unspecified vessel or lesion type (I25.10) - Clinically stable; no chest pain or dyspnea. - Follow-up with cardiology scheduled for 04/25/[address] Carey. - Continue metoprolol and losartan. - Discontinued Plavix. - Ordered Zio monitor to evaluate for bradycardia and lightheadedness. 2. Mixed hyperlipidemia (E78.2) - Continue rosuvastatin. - Sent refill for rosuvastatin to pharmacy. 3. NOE (obstructive sleep apnea) (G47.33) - Patient using CPAP inconsistently. - Educated on the importance of consistent CPAP use to prevent cardiovascular complications. 4. Gastroesophageal reflux disease without esophagitis (K21.9) - Symptoms of acid reflux with burning sensation in the epigastric region. - Previous EGD in 2020 showed no significant findings. - Restarted Nexium; sent refill to pharmacy. - Discontinued iron supplementation due to potential for constipation and no current indication foruse. 5. Generalized anxiety disorder (F41.1) - stable. 6. Bilateral carotid artery stenosis (I65.23) - Carotid arteries previously evaluated by cardiology. 7. Nocturia (R35.1) - Recent onset of urgency and occasional incontinence. - Reduced caffeine intake. - Sent refill for tamsulosin to pharmacy. - Ordered fasting labs including CBC, CMP, and PSA. - Advised follow-up with urology if symptoms persist or worsen. 8. Encounter for immunization (Z23) - Administered COVID-19 vaccine. 9. Obesity, Class I, BMI 30-34.9 (E66.811) - watch diet. 10. Lightheaded (R42) - Occasional episodes, particularly when changing positions. - Orthostatic vital signs within normal limits: BP 112/70 sitting, 110/72 standing; HR 63 sitting, 77 standing. - Ordered Zio monitor to evaluate for bradycardia and lightheadedness. 11. Bradycardia (R00.1) - Noted heart rate as low as 48 bpm on Fitbit monitoring. - Ordered Zio monitor to evaluate for bradycardia and lightheadedness. (See patient after visit summary for additional instructions to patient) Blake Wilcox MD Recording using Globev[employer] software for draft documentation of the visit was discussed with the patient/authorized circulation representative; all questions welcomed and answered. Patient/authorized circulation representative agreed to proceed documented in this encounterMercy Health05-19-2025 Instructions* Patient Instructions* Blake Wilcox MD - 12/16/2024 2:29 PM EDT Start taking Nexium (a proton pump inhibitor) again for your reflux symptoms; the new prescription with refills will be sent. Stop your iron supplement, as it is no longer needed unless there's active bleeding. Discontinue Plavix and oxycodone, as they are no longer required. Continue using your CPAP machine regularly for sleep apnea. Continue taking Crestor (rosuvastatin) along with your metoprolol and losartan; refills for Crestorare being sent to avoid any interruption. Continue taking Flomax for urinary symptoms; if your symptoms worsen, you may need to see a urologist. Complete the fasting blood tests (CBC, CMP, PSA, and lipid) as ordered. Fast (only water or black coffee is allowed) for approximately 12 hours before you get your labs. When you arrive, let the lab know you are there for your labs under Dr. Wilcox. Wear the Zio patch monitor for 2 weeks as instructed so that we can evaluate your heart rate given your episodes of lightheadedness. Monitor your knee pain; if it becomes more bothersome, consider scheduling an appointment with an facilities specialist. Follow up with your underwriting clerk as scheduled (approximately on the 25 of April) and plan to return in about 6 months for your Medicare wellness exam. documented in this encounterMercy Health05-19-2025 NoteHNO ID: [id number] Author: KARYN MENDEZ MD Service: ? Author Type: Physician Type: Procedures Filed: 01/20/2025 10:07 Note Text: Patient Name: Ketan Cotton : 1955 Ordering Provider: Blake Wilcox Indication: R42 Dizziness and giddiness Type of Monitor: Extended Monitoring-Zio Patch Enrollment Dates: 12/21/2024-01/04/2025 IRHYTHM FINDINGS: Patient had a min HR of 35 bpm, max HR of 203 bpm, and avg HR of 63 bpm. Predominant underlying rhythm was Sinus Rhythm. 8 Ventricular Tachycardia runs occurred, the run with the fastest interval lasting 12 beats with a max rate of 203 bpm, the longest lasting 17 beats with an avg rate of 160 bpm. 20 Supraventricular Tachycardia runs occurred, the run with the fastest interval lasting 5 beats with a max rate of 154 bpm, the longest lasting 19.0 secs with an avg rate of 129 bpm. Some episodes of Supraventricular Tachycardia may be possible Atrial Tachycardia with variable block. Isolated SVEs were rare (<1.0%), SVE Couplets were rare (<1.0%), and SVE Triplets were rare (<1.0%). Isolated VEs were rare (<1.0%, 4069), VE Couplets were rare (<1.0%, 24), and VE Triplets were rare (<1.0%, 3). Ventricular Bigeminy was present.[facility]03-25-[facility] Evaluation note* Diagnosis Onset Date Resolution Status Admit Date Cough chronic October 22 2:35pm NOE (obstructive sleep apnea) chroni c October 22, 2024 2:35pm Ventricular tachycardia acute J sammi 2024 10:55am Chest pain inactive February 19 10:55am [facility] Work Phone: [phone] Telephone encounter Note* Telephone Encounter - Pato Brewster LPN - 06/26/2024 1:55 PM EST Patient agreeable states to send in to [facility]. [facility]11-27-[facility] Miscellaneous Notes* Telephone Encounter - Pato Brewster LPN - 06/26/2024 1:55 PM EST Patient agreeable states to send in to [facility]. * Telephone Encounter - Blake Wilcox MD - 06/26/2024 1:36 PM EST He did not respond to albuterol. This would be something like advair. * Telephone Encounter - Ayah Shay LPN - 06/26/2024 1:11 PM EST Phoned patient and went over results, notes from Dr Wilcox with understanding. His Zeenat has some albuterol HFA inhalers that he could use to save some money, if that is what wants him to use.He uses [facility] for his pharmacy. * Telephone Encounter - Blake Wilcox MD - 06/26/2024 12:04 PM EST Does show what could be mild asthma. Could consider a maintenance inhaler to use for a few weeks tosee if it helps cough. Would have to take regularly and rinse his mouth out after using. documented in this encounterMercy Health11-27-2024 Telephone encounter Note * Telephone Encounter - Blake Wilcox MD - 06/26/2024 1:36 PM EST He did not respond to albuterol. This would be something like advair. [facility]11-27-2024 Telephone encounter Note* Telephone Encounter - Ayah Shay LPN - 06/26/2024 1:11 PM EST Phoned patient and went over results, notes from Dr Wilcox with understanding. His Zeenat has some albuterol HFA inhalers that he could use to save some money, if that is what Dr wants him to use.He uses [facility] for his pharmacy. [facility]11-27-2024 Telephone encounter Note* Telephone Encounter - Blake Wilcox MD - 06/26/2024 12:04 PM EST Does show what could be mild asthma. Could consider a maintenance inhaler to use for a few weeks tosee if it helps cough. Would have to take regularly and rinse his mouth out after using. [facility]11-26-2024 NoteHNO ID: [id number] Author: NEHAL HARDY RPFT Service: ? Author Type: Respiratory Therapist Type: Progress Notes Filed: 06/25/2024 13:00 Note Text: PULM FUNCTION: Provider: Blake Wilcox MD Assisting Tech: Nehal Hardy RPFT Spirometry w/BD: 1 LV - [facility] of Present illness Narrative* Nehal Hardy RPFT - 06/25/2024 12:44 PM EST PULM FUNCTION: Provider: Blake Wilcox MD Assisting Tech: Nehal Hardy RPFT Spirometry w/BD: 1 LV - Box: 1 documented in this encounterMercy Health11-18-2024 History of Present illness Narrative* Homer Curiel RT(R) - 06/17/2024 11:30 AM EST Radiology Service Progress Note PATIENT NAME: Ketan Cotton DATE OF SERVICE: June 17, 2024 TIME: 11:42 AM PATIENT IDENTITY VERIFICATION COMPLETED USING TWO (2) IDENTIFIERS: Name and Date of confirmedby patient verbally. FALL SCREENING: Has the patient had 2 falls in the last year or 1 fall with injury or currently using an Ambulatory Assistive Device (Walker, Cane, Wheelchair, Crutches, etc.)? No PATIENT GENDER DATA: Male PATIENT RELEVANT IMPLANT DATA REVIEWED: Yes PATIENT PRESENTS WITH AN IMPLANTABLE OR ATTACHED CORRECTIONAL OFFICER: No RADIOLOGY DEPARTMENT: General X-ray: Exam(s) Completed: Lower Extremity X- Ray(s): Knee, AP / Lat / Tunne / Merchant Right and Left PERIPHERAL IV DATA: Not applicable SIGNED BY: RT Kristy(R) June 17, 2024 11:42 AM documented in this encounterMercy Health11-18-2024 NoteHNO ID: [id number] Author: HOMER CURIEL RT(R) Service: ? Author Type: Golf Manager Type: Progress Notes Filed: 06/17/2024 11:59 Note Text: Radiology Service Progress Note PATIENT NAME: Ketan Cotton DATE OF SERVICE: June 17, 2024 TIME: 11:42 AM PATIENT IDENTITY VERIFICATION COMPLETED USING TWO (2) IDENTIFIERS: Name and Date of confirmed by patient verbally. FALL SCREENING: Has the patient had 2 falls in the last year or 1 fall with injury or currently using an Ambulatory Assistive Device (Walker, Cane, Wheelchair, Crutches, etc.)? No PATIENT GENDER DATA: Male PATIENT RELEVANT IMPLANT DATA REVIEWED: Yes PATIENT PRESENTS WITH AN IMPLANTABLE OR ATTACHED CORRECTIONAL OFFICER: No RADIOLOGY DEPARTMENT: General X-ray: Exam(s) Completed: Lower Extremity X-Ray(s): Knee, AP / Lat / Tunne / Merchant Right and Left PERIPHERAL IV DATA: Not applicable SIGNED BY: RT Kristy(R) June 17, 2024 11:42 [facility]11-18-2024 NoteHNO ID: [id number] Author: BLAKE WILCOX MD Service: ? Author Type: Physician Type: Progress Notes Filed: 06/17/2024 11:09 Note Text: Patient presents with: 6 Month Exam Left Knee Pain HPI: Patient presents today for office visit for follow up. GERD: Taking famotidine at night and Nexium in the morning. Believes that his famotidine is interacting with his statin? Also is not taking Nexium in the morning alone. Is taking with all his other medications after bowl of cereal and milk. Doesn't have complaint of GERD. His concern is runny nose and cough when eating. Discussed that the pepcid is safe to take with his meds. Cough: Has seen UC x 2. Still with cough that is productive. Using dayquil and nyquil still for this. Has tessalon that he can use. Chest x-ray has been done on 04/30/24 and 06/10/24. Tested at home for COVID and was negative. Chronic cough has been there for several months. Has persistent drainage. Has tried flonase. Patient complains of: left knee pain. Duration: has been for quite awhile Location:inner part of left knee Stops him from running. Sometimes is painful to go up and down stairs. Has had previous surgery. Not giving out . No swelling. Still seeing cardiology. No chest pain or shortness of breath. MEDICATIONS: Current Outpatient Medications Medication Sig benzonatate (TESSALON PERLES) 100 mg capsule Take 2 capsules by mouth three times a day as needed for cough. tamsulosin (FLOMAX) 0.4 mg Take 1 capsule by mouth daily at bedtime. (Patient taking differently: Take 0.4 mg by mouth daily at bedtime. ran out) esomeprazole (NEXIUM) 40 mg capsule Take 1 capsule by mouth once daily. oxyCODONE IR (ROXICODONE) 5 mg immediate release tablet (Patient not taking: Reported on 06/03/2024) melatonin 10 mg tab Take 10 mg by mouth daily at bedtime. (Patient not taking: Reported on 06/03/2024) clopidogrel (PLAVIX) 75 mg tablet Take 75 [...] 1 tablet by mouth daily at bedtime. COMPOUNDED PRESCRIPTION CMC Push Brace to be used daily as directed. Compression Knee Highs KNEE HIGH COMPRESSION STOCKINGS 20-30 MM. DX: EDEMA, varicose veins irmxuuqr-irc-WI-lycopen-lutein (CENTRUM SILVER MEN) 300-600-300 mcg tab Take 1 tablet by mouth once daily. No current facility-administered medications for this visit. ALLERGIES: ALLERGIES Allergen Reactions Baycol Intolerance Leg cramps Erythromycin Intolerance GI upset Lipitor [Atorvastat* Intolerance leg pain,weakness Niaspan [Niacin] Hives Penicillins Hives hives Seasonal Allergies Other: See Comments Cockroaches, trees, weeds PAST MEDICAL HISTORY Diagnosis Date Arthritis Benign [...] HX FRACTURE SURGERY HEMORRHOID SURGERY HX 2017 [employer] [place] HERNIA REPAIR HX PAST SURGICAL HISTORY [...] Age of Onset Alzheimer's Disease Father Coronary (more content not included)...[facility]11-18-2024 History of Present illness Narrative* Blake Wilcox MD - 06/17/2024 10:28 AM EST Patient presents with: 6 Month Exam Left Knee Pain HPI: Patient presents today for office visit for follow up. GERD: Taking famotidine at night and Nexium in the morning. Believes that his famotidine is interacting with his statin? Also is not taking Nexium in the morning alone. Is taking with all his other medications after bowl of cereal and milk. Doesn't have complaint of GERD. His concern is runny nose and cough when eating. Discussed that the pepcid is safe to take with his meds. Cough: Has seen UC x 2. Still with cough that is productive. Using dayquil and nyquil still for this. Has tessalon that he can use. Chest x-ray has been done on 04/30/24 and 06/10/24. Tested at home for COVID and was negative. Chronic cough has been there for several months. Has persistent drainage.Has tried flonase. Patient complains of: left knee pain. Duration: has been for quite awhile Location:inner part of left knee Stops him from running. Sometimes is painful to go up and down stairs. Has had previous surgery. Not giving out . No swelling. Still seeing cardiology. No chest pain or shortness of breath. MEDICATIONS: Current Outpatient Medications Medication Sig benzonatate (TESSALON PERLES) 100 mg capsule Take 2 capsules by mouth three times a day as needed for cough. tamsulosin (FLOMAX) 0.4 mg Take 1 capsule by mouth daily at bedtime. (Patient taking differently: Take 0.4 mg by mouth daily at bedtime. ran out) esomeprazole (NEXIUM) 40 mg capsule Take 1 capsule by mouth once daily. oxyCODONE IR (ROXICODONE) 5 mg immediate release tablet (Patient not taking: Reported on 06/03/2024) melatonin 10 mg tab Take 10 mg by mouth daily at bedtime. (Patient not taking: Reported on 06/03/2024) clopidogrel (PLAVIX) 75 mg tablet Take 75 mg by mouth once daily. losartan (COZAAR) 25 mg tablet Take 25 mg by mouth once daily. nitroglycerin sublingual (NITROQUICK) 0.4 mg SL tablet DISSOLVE 1 TABLET UNDER THE TONGUE NEEDEDFOR CHEST PAIN- MAY REPEAT EVERY 5 MINUTES [...] 1 tablet by mouth daily at bedtime. COMPOUNDED PRESCRIPTION CMC Push Brace to be used daily as directed. Compression Knee Highs KNEE HIGH COMPRESSION STOCKINGS 20-30 MM. DX: EDEMA, varicose veins mrywdhwp-sfo-MM-lycopen-lutein (CENTRUM SILVER MEN) 300-600-300 mcg tab Take 1 tablet by mouth oncedaily. No current facility-administered medications for this visit. ALLERGIES: ALLERGIES Allergen Reactions Baycol Intolerance Leg cramps Erythromycin Intolerance GI upset Lipitor [Atorvastat* Intolerance leg pain,weakness Niaspan [Niacin] Hives Penicillins Hives hives Seasonal Allergies Other: See Comments Cockroaches, trees, weeds PAST MEDICAL HISTORY Diagnosis Date Arthritis Benign [...] SURGERY HX FRACTURE SURGERY HEMORRHOID SURGERY HX [id number] [place] HERNIA REPAIR HX PAST SURGICAL HISTORY [...] Never Smokeless tobacco: Never Vaping Use Vaping status: Never Used Substance Use Topics Alcohol use: Yes Comment: ocassional Drug use: No Reviewed current medications, allergies, past medical history, surgical history, family history andsocial history today. REVIEW OF SYSTEMS All other reviewed and negative other than HPI. HEALTH MAINTENANCE: Reviewed health maintenance issues today and recommended the following in detail. Covid-19 Vaccine( season) due on 03/31/2024 Had discussion with patient regarding risks and benefits of prostate screening. Allowed them to decide if they wished to proceed with screening including LUISES and PSA. VITALS: BP 128/82 Pulse (!) 59 Wt 92.4 kg (203 lb 12.8 oz) SpO2 95% BMI 29.24 kg/m Last 4 Encounter Wt Readings: Date: Wt: 06/10/2024 91.6 kg (202 lb) 06/03/2024 93.3 kg (205 lb 11 oz) 04/30/2024 93.7 kg (206 lb 9.1 oz) 12/11/2023 92.5 kg (204 lb) PHYSICAL EXAMINATION: General appearance: Well appearing, [...] teeth and gums normal, oropharynx normal Neck: Negative findings: no adenopathy Lungs: Lungs clear to auscultation. No wheezing, rhonchi, rales Heart: RRR without murmur, gallop, or rubs. No ectopy Abdomen: Normal abdominal exam, Abdomen soft, non-tender. Bowel sounds normal. No masses, organomegaly Extremities: No deformities, edema, skin discoloration, clubbing or cyanosis. Good capillary refill. No effusion. No instability. Musculoskeletal: No joint swelling, deformity, or tenderness ASSESSMENT/PLAN: 1. Coronary artery disease involving [place] heart without angina pectoris, unspecified vessel or lesion type - ICD9: 414.01, ICD10: I25.10 (primary diagnosis) - stable - NITROGLYCERIN 0.4 MG SUBLINGUAL TABLET 2. Nocturia - ICD9: 788.43, ICD10: R35.1 - TAMSULOSIN 0.4 MG CAPSULE 3. Mixed hyperlipidemia - ICD9: 272.2, ICD10: E78.2 - Controlled - Continue current medications - Counseled on healthy diet and regular exercise 4. NOE (obstructive sleep apnea) - ICD9: 327.23, ICD10: G47.33 - using cpap. Benefiting from its use. 5. Gastroesophageal reflux disease without esophagitis - ICD9: 530.81, ICD10: K21.9 - continue meds. 6. Generalized anxiety disorder - ICD9: 300.02, ICD10: F41.1 - stable. 7. Bilateral carotid artery stenosis - ICD9: 433.10, 433.30, ICD10: I65.23 - followed by cardiology. 8. Nasal congestion - ICD9: 478.19, ICD10: R09.81 - has failed antibiotics x 2 - CONSULT TO ENT 9. Cough, unspecified type - ICD9: 786.2, ICD10: R05.9 As Above. - CONSULT TO ENT - SPIROMETRY WITH DILATOR IF OBSTRUCTED - LUNG VOLUMES 10. Knee pain Xray of knee. Consider ortho Blake Wilcox MD documented in this encounterMer[facility] Health11-11-2024 Telephone encounter Note * Telephone Encounter - Ajit Aguilera MA - 06/10/2024 4:34 PM EST Pt notified and verbalized understanding Ajit Aguilera MA [facility]11-11-2024 Miscellaneous Notes* Telephone Encounter - Ajit Aguilera MA - 06/10/2024 4:34 PM EST Pt notified and verbalized understanding Ajit Aguilera MA * Telephone Encounter - Charlie Tipton APRN.CNP - 06/10/2024 4:23 PM EST Please let patient know his CXR is normal however due to his worsening symptoms and his known exposure to mycoplasma PNA I will treat him with dual antibiotic therapy. documented in this encounterMer[facility] Health11-11-2024 Telephone encounter Note * Telephone Encounter - Charlie Tipton APRN.CNP - 06/10/2024 4:23 PM EST Please let patient know his CXR is normal however due to his worsening symptoms and his known exposure to mycoplasma PNA I will treat him with dual antibiotic therapy. [facility]11-11-2024 History of Present illness Narrative* Ramiro Palmer RT(R) - 06/10/2024 4:00 PM EST Radiology Service Progress Note PATIENT NAME: Ketan Cotton DATE OF SERVICE: June 10, 2024 TIME: 4:01 PM PATIENT IDENTITY VERIFICATION COMPLETED USING TWO (2) IDENTIFIERS: Name and Date of confirmedby patient verbally. FALL SCREENING: Has the patient had 2 falls in the last year or 1 fall with injury or currently using an Ambulatory Assistive Device (Walker, Cane, Wheelchair, Crutches, etc.)? No PATIENT GENDER DATA: Male PATIENT RELEVANT IMPLANT DATA REVIEWED: Not Applicable PATIENT PRESENTS WITH AN IMPLANTABLE OR ATTACHED CORRECTIONAL OFFICER: No RADIOLOGY DEPARTMENT: General X-ray: Exam(s) Completed: Chest X-Ray PERIPHERAL IV DATA: Not applicable SIGNED BY: JES Vanegas) June 10, 2024 4:01 PM documented in this encounterMercy Health11-11-2024 NoteHNO ID: [id number] Author: RAMIRO PALMER RT (R) Service: Radiology Author Type: Technologist Type: Progress Notes Filed: 06/10/2024 16:06 Note Text: Radiology Service Progress Note PATIENT NAME: Ketan Cotton DATE OF SERVICE: June 10, 2024 TIME: 4:01 PM PATIENT IDENTITY VERIFICATION COMPLETED USING TWO (2) IDENTIFIERS: Name and Date of confirmed by patient verbally. FALL SCREENING: Has the patient had 2 falls in the last year or 1 fall with injury or currently using an Ambulatory Assistive Device (Walker, Cane, Wheelchair, Crutches, etc.)? No PATIENT GENDER DATA: Male PATIENT RELEVANT IMPLANT DATA REVIEWED: Not Applicable PATIENT PRESENTS WITH AN IMPLANTABLE OR ATTACHED CORRECTIONAL OFFICER: No RADIOLOGY DEPARTMENT: General X-ray: Exam(s) Completed: Chest X-Ray PERIPHERAL IV DATA: Not applicable SIGNED BY: RT Romina(R) June 10, 2024 4:01 [facility]11-11-2024 NoteHNO ID: [id number] Author: CHARLIE TIPTON APRN.CHIEF OPERATOR HYDROFORMER Service: ? Author Type: Nurse Practitioner Type: Progress Notes Filed: 06/10/2024 15:51 Note Text: Chief Complaint Patient presents with: Cough Chest Congestion Head Congestion HPI Ketan Cotton is a 68 year old male who presents here today for Above Complaints.. Patient presents for cough and congestion x2 weeks. Patient reports intermittent chills, fatigue, SOB with exertion. Seen 06/03 in [facility] and LS were normal, assumed viral illness. Past medical history, appointments, medications, allergies reviewed. [...] SURGERY HX FRACTURE SURGERY HEMORRHOID SURGERY HX [id number] [place] HERNIA REPAIR HX PAST SURGICAL HISTORY [...] BIOPSY HX TONSILLECTOMY HX TONSILLECTOMY PRIMARY/SECONDARY Tonsillectomy Family History FAMILY HISTORY Problem Relation Age of Onset Alzheimer's Disease Father Coronary Artery Disease Mother Heart Mother other (stomach problems) Mother open heart surgery,ashd,diabetes Cataract Maternal Grandfather Cataract Paternal Grandmother Cataract Paternal Grandfather other (obese) Sister Patient Allergies ALLERGIES Allergen Reactions Baycol Intolerance Leg cramps Erythromycin Intolerance GI upset Lipitor [Atorvastat* Intolerance leg pain,weakness Niaspan [Niacin] Hives Penicillins Hives hives Seasonal Allergies Other: See Comments Cockroaches, trees, weeds Current Medications Current Outpatient Medications on File Prior to Visit Medication Sig tamsulosin (FLOMAX) 0.4 mg Take 1 capsule by mouth daily at bedtime. (Patient taking differently: Take 0.4 mg by mouth daily at bedtime. ran out) esomeprazole (NEXIUM) 40 mg capsule Take 1 capsule by mouth once daily. oxyCODONE IR (ROXICODONE) 5 mg immediate release tablet (Patient not taking: Reported on 06/03/2024) melatonin 10 mg tab Take 10 mg by mouth daily at bedtime. (Patient not taking: Reported on 06/03/2024) clopidogrel (PLAVIX) 75 mg tablet Take 75 [...] 1 tablet by mouth daily at bedtime. COMPOUNDED PRESCRIPTION CMC Push Brace to be used daily as directed. Compression Knee Highs KNEE HIGH COMPRESSION STOCKINGS 20-30 MM. DX: EDEMA, varicose veins tlatsdqj-chf-EE-lycopen-lutein (CENTRUM JAKE MEN) 300-600-300 mcg tab Take 1 tablet by mouth once daily. No current facility-administered medications on file prior to visit. Social History Social History Tobacco Use Smoking status: Never Smokeless tobacco: Never Vaping Use Vaping status: Never Used Substance Use Topics Alcohol use: Yes Comment: ocassional Drug use: No Review of Symptoms REVIEW OF SYSTEMS SEE HPI EXAM: BP 119/75 Pulse 80 Resp 16 Wt 91.6 kg (202 lb) SpO2 97% BMI 28.98 kg/m? General Appearance: Well appearing, alert, in no acute distress, well-hydrated, well nourished.. L (more content not included)...[facility]11-11-2024 History of Present illness Narrative* Charlie Tipton APRN.CHIEF OPERATOR HYDROFORMER - 06/10/2024 3:41 PM EST Chief Complaint Patient presents with: Cough Chest Congestion Head Congestion HPI Ketan Cotton is a 68 year old male who presents here today for Above Complaints.. Patient presents for cough and congestion x2 weeks. Patient reports intermittent chills, fatigue, SOB with exertion. Seen 06/03 in [facility] and LS were normal, assumed viral illness. Past medical history, appointments, medications, allergies reviewed. [...] HX FRACTURE SURGERY HEMORRHOID SURGERY HX 2017 Ntyhlhv-Nbfpq-Dl [place] HERNIA REPAIR HX PAST SURGICAL HISTORY [...] Sister Patient Allergies ALLERGIES Allergen Reactions Baycol Intolerance Leg cramps Erythromycin Intolerance GI upset Lipitor [Atorvastat* Intolerance leg pain,weakness Niaspan [Niacin] Hives Penicillins Hives hives Seasonal Allergies Other: See Comments Cockroaches, trees, weeds Current Medications Current Outpatient Medications on File Prior to Visit Medication Sig tamsulosin (FLOMAX) 0.4 mg Take 1 capsule by mouth daily at bedtime. (Patient taking differently: Take 0.4 mg by mouth daily at bedtime. ran out) esomeprazole (NEXIUM) 40 mg capsule Take 1 capsule by mouth once daily. oxyCODONE IR (ROXICODONE) 5 mg immediate release tablet (Patient not taking: Reported on 06/03/2024) melatonin 10 mg tab Take 10 mg by mouth daily at bedtime. (Patient not taking: Reported on 06/03/2024) clopidogrel (PLAVIX) 75 mg tablet Take 75 mg by mouth once daily. losartan (COZAAR) 25 mg tablet Take 25 mg by mouth once daily. nitroglycerin sublingual (NITROQUICK) 0.4 mg SL tablet DISSOLVE 1 TABLET UNDER THE TONGUE NEEDEDFOR CHEST PAIN- MAY REPEAT EVERY 5 MINUTES [...] 1 tablet by mouth daily at bedtime. COMPOUNDED PRESCRIPTION CMC Push Brace to be used daily as directed. Compression Knee Highs KNEE HIGH COMPRESSION STOCKINGS 20-30 MM. DX: EDEMA, varicose veins vdlabzqo-xxx-UP-lycopen-lutein (CENTRUM SILVER MEN) 300-600-300 mcg tab Take 1 tablet by mouth oncedaily. No current facility-administered medications on file prior to visit. Social History Social History Tobacco Use Smoking status: Never Smokeless tobacco: Never Vaping Use Vaping status: Never Used Substance Use Topics Alcohol use: Yes Comment: ocassional Drug use: No Review of Symptoms REVIEW OF SYSTEMS SEE HPI EXAM: BP 119/75 Pulse 80 Resp 16 Wt 91.6 kg (202 lb) SpO2 97% BMI 28.98 kg/m General Appearance: Well appearing, alert, in no acute distress, well-hydrated, well nourished.. Lungs: Positive findings: rhonchi Shortness of breath: Upon exertion Cough. Heart: RRR without murmur, gallop, or rubs. No ectopy. Health Maintenance List Covid-19 Vaccine() due on 03/31/2024 LDL Cholesterol due on 08/17/2024 Depression Screening due on 12/10/2024 Annual PCP Team Chronic Disease Visit due on 06/10/2025 Colorectal Cancer Screening due on 12/10/2025 Diabetes Screening due on 08/17/2026 Prostate Cancer Screening Discussion due on 02/09/2027 Lipid Screening due on 08/17/2028 DTaP,Tdap,Td Vaccine(4 - Td or Tdap) due on 12/16/2032 Influenza Vaccine Completed Advance Directive Discussion Completed RSV Vaccine Completed Hepatitis C Screening Completed Shingrix Vaccine Completed Pneumococcal Vaccine: 65+ Completed ASSESSMENT/PLAN: 1. URI with cough and congestion - ICD9: 465.9, ICD10: J06.9 - Discussed viral etiology and rationale for treatment. - Symptomatic treatment with prn analgesia - Supportive care with fluids and rest - BENZONATATE 100 MG CAPSULE - XR CHEST 2V FRONTAL/LAT Charlie Tipton, OXYACETYLENE WELDER.CHIEF OPERATOR HYDROFORMER documented [facility]24 Telephone encounter Note * Telephone Encounter - Mignon Munoz LPN - 06/10/2024 1:44 PM EST calling to let up know pt was seen in [facility] 06-03-24 . Pt not getting better and very concerned with cough, congestion, headache, sinus pressure, tested negative for COVID on 06/06/24 and 06/07/24. Pt has been around family dx with COVID, pneumonia and strep last week . Pt instructed to wear a mask in and verbalizes understanding and will have him wear this in. Denies: chest pain, SOB or fever. Pt's provider/team not available. Pt scheduled with provider. Mignon Munoz LPN [facility]11-11-2024 Miscellaneous Notes* Telephone Encounter - Mignon Munoz LPN - 06/10/2024 1:44 PM EST calling to let up know pt was seen in [facility] 06-03-24 . Pt not getting better and very concerned with cough, congestion, headache, sinus pressure, tested negative for COVID on 06/06/24 and 06/07/24. Pt has been around family dx with COVID, pneumonia and strep last week . Pt instructed to wear a mask in and verbalizes understanding and will have him wear this in. Denies: chest pain, SOB or fever. Pt's provider/team not available. Pt scheduled with provider. Mignon Munoz LPN documented in this encounterMer[facility]11-04-2024 NoteHNO ID: [id number] Author: TRAY NUÑEZ MD Service: ? Author Type: Physician Type: Progress Notes Filed: 06/03/2024 14:53 Note Text: Patient presents with: Chest Congestion: cough, nasal drainage seen a few weeks ago, pneumonia exposure HPI: Reports chronic symptoms may be worse the last 4-5 days. Grandchildren have had pneumonia and his would like him rechecked. Positive symptoms: Cough, Chest congestion, Sinus pressure, Nasal Congestion, Rhinorrhea, Post nasal drainage, reflux, Negative symptoms: Nausea, Vomiting, Diarrhea, Fever, Chills, change in Body Aches, Malaise, OTC: nexium, pepcid, daily antihistamine; shower helps the most Drainage and symptoms are exacerbated by overeating. MEDICATIONS: Current Outpatient Medications Medication Sig tamsulosin (FLOMAX) 0.4 mg Take 1 capsule by mouth daily at bedtime. (Patient taking differently: Take 0.4 mg by mouth daily at bedtime. ran out) esomeprazole (NEXIUM) 40 mg capsule Take 1 capsule by mouth once daily. clopidogrel (PLAVIX) 75 mg tablet Take 75 [...] 1 tablet by mouth daily at bedtime. COMPOUNDED PRESCRIPTION CMC Push Brace to be used daily as directed. Compression Knee Highs KNEE HIGH COMPRESSION STOCKINGS 20-30 MM. DX: EDEMA, varicose veins mddycsrr-xhe-ZE-lycopen-lutein (CENTRUM SILVER MEN) 300-600-300 mcg tab Take 1 tablet by mouth once daily. oxyCODONE IR (ROXICODONE) 5 mg immediate release tablet (Patient not taking: Reported on 06/03/2024) melatonin 10 mg tab Take 10 mg by mouth daily at bedtime. (Patient not taking: Reported on 06/03/2024) No current facility-administered medications for this visit. ALLERGIES: ALLERGIES Allergen Reactions Baycol Intolerance Leg cramps Erythromycin Intolerance GI upset Lipitor [Atorvastat* Intolerance leg pain,weakness Niaspan [Niacin] Hives Penicillins Hives hives Seasonal Allergies Other: See Comments Cockroaches, trees, weeds VITALS: BP 122/72 Pulse 60 Temp 36.6 ?C (97.8 ?F) Resp 16 Wt 93.3 kg (205 lb 11 oz) SpO2 97% BMI 29.51 kg/m? PHYSICAL EXAM: GEN: Pleasant, in no acute distress. HEENT: PERRL, EOMI, conjunctiva clear Ears: canals clear. TMs without erythema, bulge, or effusion Sinuses: non-tender frontal sinus, non-tender maxillary sinuses Throat: moist mucous membranes, no erythema, no exudate Neck: supple, no thyromegaly, no lymphadenopathy HEART: regular rate and rhythm, no murmurs LUNGS: clear to auscultation, no wheezes or crackles, no increased WOB ASSESSMENT/PLAN: 1. Nasal congestion - ICD9: 478.19, ICD10: R09.81 (primary diagnosis) 2. Chronic cough - ICD9: 786.2, ICD10: R05.3 Benign exam and vitals today without signs of pneumonia. We discussed possibly adding a nasal steroid spray like flonase. He will keep his appointment with PCP in a couple weeks and discuss ENT consult. Tray Nuñez [facility]11-04-2024 History of Present illness Narrative* Tray Nuñez MD - 06/03/2024 2:46 PM EST Patient presents with: Chest Congestion: cough, nasal drainage seen a few weeks ago, pneumonia exposure HPI: Reports chronic symptoms may be worse the last 4-5 days. Grandchildren have had pneumonia and his would like him rechecked. Positive symptoms: Cough, Chest congestion, Sinus pressure, Nasal Congestion, Rhinorrhea, Post nasal drainage, reflux, Negative symptoms: Nausea, Vomiting, Diarrhea, Fever, Chills, change in Body Aches, Malaise, OTC: nexium, pepcid, daily antihistamine; shower helps the most Drainage and symptoms are exacerbated by overeating. MEDICATIONS: Current Outpatient Medications Medication Sig tamsulosin (FLOMAX) 0.4 mg Take 1 capsule by mouth daily at bedtime. (Patient taking differently: Take 0.4 mg by mouth daily at bedtime. ran out) esomeprazole (NEXIUM) 40 mg capsule Take 1 capsule by mouth once daily. clopidogrel (PLAVIX) 75 mg tablet Take 75 mg by mouth once daily. losartan (COZAAR) 25 mg tablet Take 25 mg by mouth once daily. nitroglycerin sublingual (NITROQUICK) 0.4 mg SL tablet DISSOLVE 1 TABLET UNDER THE TONGUE NEEDEDFOR CHEST PAIN- MAY REPEAT EVERY 5 MINUTES [...] 1 tablet by mouth daily at bedtime. COMPOUNDED PRESCRIPTION CMC Push Brace to be used daily as directed. Compression Knee Highs KNEE HIGH COMPRESSION STOCKINGS 20-30 MM. DX: EDEMA, varicose veins ixmuoatn-qcr-LW-lycopen-lutein (CENTRUM SILVER MEN) 300-600-300 mcg tab Take 1 tablet by mouth oncedaily. oxyCODONE IR (ROXICODONE) 5 mg immediate release tablet (Patient not taking: Reported on 06/03/2024) melatonin 10 mg tab Take 10 mg by mouth daily at bedtime. (Patient not taking: Reported on 06/03/2024) No current facility-administered medications for this visit. ALLERGIES: ALLERGIES Allergen Reactions Baycol Intolerance Leg cramps Erythromycin Intolerance GI upset Lipitor [Atorvastat* Intolerance leg pain,weakness Niaspan [Niacin] Hives Penicillins Hives hives Seasonal Allergies Other: See Comments Cockroaches, trees, weeds VITALS: BP 122/72 Pulse 60 Temp 36.6 C (97.8 F) Resp 16 Wt 93.3 kg (205 lb 11 oz) SpO2 97% BMI 29.51 kg/m PHYSICAL EXAM: GEN: Pleasant, in no acute distress. HEENT: PERRL, EOMI, conjunctiva clear Ears: canals clear. TMs without erythema, bulge, or effusion Sinuses: non-tender frontal sinus, non-tender maxillary sinuses Throat: moist mucous membranes, no erythema, no exudate Neck: supple, no thyromegaly, no lymphadenopathy HEART: regular rate and rhythm, no murmurs LUNGS: clear to auscultation, no wheezes or crackles, no increased WOB ASSESSMENT/PLAN: 1. Nasal congestion - ICD9: 478.19, ICD10: R09.81 (primary diagnosis) 2. Chronic cough - ICD9: 786.2, ICD10: R05.3 Benign exam and vitals today without signs of pneumonia. We discussed possibly adding a nasal steroid spray like flonase. He will keep his appointment with PCP in a couple weeks and discuss ENT consult. Tray Nuñez MD documented in this encounterMer[facility]10-02-2024 Telephone encounter Note * Telephone Encounter - Ajit Silva MA - 05/01/2024 8:42 AM EDT Patient active MyChart. Patient notified via Tailwind message. Ajit Silva MA [facility]10-02-2024 Miscellaneous Notes* Telephone Encounter - Ajit Silva MA - 05/01/2024 8:42 AM EDT Patient active MyChart. Patient notified via Tailwind message. Ajit Silva MA * Telephone Encounter - Seema Elias LPN - 05/01/2024 8:04 AM EDT Unable to reach patient and mailbox is full-try later.Seema Elias LPN * Telephone Encounter - Christina Holly APRN.ADRIANNA - 05/01/2024 7:23 AM EDT Please notify that covid/flu/rsv testing negative. Continue with plan of care as discussed during visit. documented in this encounterMercy Health10-02-2024 Telephone encounter Note * Telephone Encounter - Seema Elias LPN - 05/01/2024 8:04 AM EDT Unable to reach patient and mailbox is full-try later.Seema Elias LPN [facility]10-02-2024 Telephone encounter Note* Telephone Encounter - Christina Holly APRN.CNP - 05/01/2024 7:23 AM EDT Please notify that covid/flu/rsv testing negative. Continue with plan of care as discussed during visit. [facility] Work Phone: 1(550) 817-107010-01-2024 History of Present illness Narrative* Moreno Whitten RT(Vaibhav) - 04/30/2024 5:40 PM EDT Radiology Service Progress Note PATIENT NAME: Ketan Cotton DATE OF SERVICE: April 30, 2024 TIME: 5:51 PM PATIENT IDENTITY VERIFICATION COMPLETED USING TWO (2) IDENTIFIERS: Name and Date of confirmedby patient verbally. FALL SCREENING: Has the patient had 2 falls in the last year or 1 fall with injury or currently using an Ambulatory Assistive Device (Walker, Cane, Wheelchair, Crutches, etc.)? No PATIENT GENDER DATA: Male PATIENT RELEVANT IMPLANT DATA REVIEWED: Yes PATIENT PRESENTS WITH AN IMPLANTABLE OR ATTACHED CORRECTIONAL OFFICER: No RADIOLOGY DEPARTMENT: General X-ray: Exam(s) Completed: Chest X-Ray PERIPHERAL IV DATA: Not applicable SIGNED BY: RT Ayesha(Vaibhav) April 30, 2024 5:51 PM documented in this encounterMercy Health10-01-2024 NoteHNO ID: [id number] Author: MORENO WHITTEN RT(Vaibhav) Service: Radiology Author Type: Technologist Type: Progress Notes Filed: 04/30/2024 17:57 Note Text: Radiology Service Progress Note PATIENT NAME: Ketan Cotton DATE OF SERVICE: April 30, 2024 TIME: 5:51 PM PATIENT IDENTITY VERIFICATION COMPLETED USING TWO (2) IDENTIFIERS: Name and Date of confirmed by patient verbally. FALL SCREENING: Has the patient had 2 falls in the last year or 1 fall with injury or currently using an Ambulatory Assistive Device (Walker, Cane, Wheelchair, Crutches, etc.)? No PATIENT GENDER DATA: Male PATIENT RELEVANT IMPLANT DATA REVIEWED: Yes PATIENT PRESENTS WITH AN IMPLANTABLE OR ATTACHED CORRECTIONAL OFFICER: No RADIOLOGY DEPARTMENT: General X-ray: Exam(s) Completed: Chest X-Ray PERIPHERAL IV DATA: Not applicable SIGNED BY: RT Ayesha(Vaibhav) April 30, 2024 5:51 PMCM[facility]24 NoteHNO ID: [id number] Author: CAROLYNE GILLIS APRN.CHIEF OPERATOR HYDROFORMER Service: ? Author Type: Nurse Practitioner Type: Progress Notes Filed: 04/30/2024 18:19 Note Text: This note was created using NoteWriter. Subjective Ketan Cotton is a 68 year old male. 68 year old male with PMH CAD, hyperlipidemia, NSTEMI, GERD, Acute onset 5 days ago +runny nose +nasal congestion +sinus pressure +post nasal drainage +cough +productive sputum +headache +body aches +fatigue Denies N/V/D Denies dyspnea Endorses that he has been unable to use his CPAP machine at night. The history is provided by the patient. No multi disciplined language analyst was used. URI He complains of cough. There is no chest tightness, difficulty breathing, frequent throat clearing, hemoptysis, hoarse voice, shortness of breath, sputum production or wheezing. This is a new problem. The current episode started in the past 7 days. The problem occurs constantly. The problem has been gradually worsening. Associated symptoms include malaise/fatigue, nasal congestion, postnasal drip, rhinorrhea, sneezing and a sore throat. Pertinent negatives include no appetite change, chest pain, dyspnea on exertion, ear congestion, ear pain, fever, headaches, heartburn, myalgias, orthopnea, PND, sweats, trouble swallowing or weight loss. He reports no improvement on treatment. There are no known risk factors for lung disease. There is no history of asthma, bronchiectasis, bronchitis, COPD, emphysema or pneumonia. PAST MEDICAL HISTORY Diagnosis Date Arthritis Benign [...] SURGERY HX FRACTURE SURGERY HEMORRHOID SURGERY HX [id number]-Xi [facility] HERNIA REPAIR HX PAST SURGICAL HISTORY [...] BIOPSY HX TONSILLECTOMY HX TONSILLECTOMY PRIMARY/SECONDARY Tonsillectomy ALLERGIES Baycol, Erythromycin, Lipitor [Atorvastatin Calcium], Niaspan [Niacin], Penicillins, and Seasonal Allergies MEDICATIONS doxycycline (VIBRA-TABS) 100 mg tablet Take 1 tablet by mouth two times a day for 10 days. tamsulosin (FLOMAX) 0.4 mg Take 1 capsule by mouth daily at bedtime. esomeprazole (NEXIUM) 40 mg capsule Take 1 capsule by mouth once daily. oxyCODONE IR (ROXICODONE) 5 mg immediate release tablet melatonin 10 mg tab Take 10 mg by mouth daily at bedtime. clopidogrel (PLAVIX) [...] 1 tablet by mouth daily at bedtime. COMPOUNDED PRESCRIPTION CMC Push Brace to be used daily as directed. Compression Knee Highs KNEE HIGH COMPRESSION STOCKINGS 20-30 MM. DX: EDEMA, varicose veins ddpdlsvp-ipv-TD-lycopen-lutein (CENTRUM SILVER MEN) 300-600-300 mcg tab Take 1 tablet by mouth once daily. FAMILY HISTORY Problem Relation Age of Onset Alzheimer's Disease Father Coronary Artery Disease Mother Heart Mother other (stomach problems) Mother open heart surgery,ashd,diabetes Cataract Maternal Grandfather Cataract Paternal Grandmother Cataract Paternal Grandfather other (obese) Sister Social History Tobacco Use (more content not included)...[facility]10-01-2024 History of Present illness Narrative* Carolyne Gillis, KING.CHIEF OPERATOR HYDROFORMER - 04/30/2024 5:26 PM EDT This note was created using NoteWriter. Subjective Ketan Cotton is a 68 year old male. 68 year old male with PMH CAD, hyperlipidemia, NSTEMI, GERD, Acute onset 5 days ago +runny nose +nasal congestion +sinus pressure +post nasal drainage +cough +productive sputum +headache +body aches +fatigue Denies N/V/D Denies dyspnea Endorses that he has been unable to use his CPAP machine at night. The history is provided by the patient. No multi disciplined language analyst was used. URI He complains of cough. There is no chest tightness, difficulty breathing, frequent throat clearing,hemoptysis, hoarse voice, shortness of breath, sputum production or wheezing. This is a new problem. The current episode started in the past 7 days. The problem occurs constantly. The problem has been gradually worsening. Associated symptoms include malaise/fatigue, nasal congestion, postnasal drip, rhinorrhea, sneezing and a sore throat. Pertinent negatives include no appetite change, chest pain, dyspnea on exertion, ear congestion, ear pain, fever, headaches, heartburn, myalgias, orthopnea, PND, sweats, trouble swallowing or weight loss. He reports no improvement on treatment. There are no known risk factors for lung disease. There is no history of asthma, bronchiectasis, bronchitis, COPD, emphysema or pneumonia. PAST MEDICAL HISTORY Diagnosis Date Arthritis Benign [...] SURGERY HX FRACTURE SURGERY HEMORRHOID SURGERY HX [id number] [place] HERNIA REPAIR HX PAST SURGICAL HISTORY [...] HX TONSILLECTOMY PRIMARY/SECONDARY <AGE 12 Tonsillectomy ALLERGIES Baycol, Erythromycin, Lipitor [Atorvastatin Calcium], Niaspan [Niacin], Penicillins, and Seasonal Allergies MEDICATIONS doxycycline (VIBRA-TABS) 100 mg tablet Take 1 tablet by mouth two times a day for 10 days. tamsulosin (FLOMAX) 0.4 mg Take 1 capsule by mouth daily at bedtime. esomeprazole (NEXIUM) 40 mg capsule Take 1 capsule by mouth once daily. oxyCODONE IR (ROXICODONE) 5 mg immediate release tablet melatonin 10 mg tab Take 10 mg by mouth daily at bedtime. clopidogrel (PLAVIX) 75 mg tablet Take 75 mg by mouth once daily. losartan (COZAAR) 25 mg tablet Take 25 mg by mouth once daily. nitroglycerin sublingual (NITROQUICK) 0.4 mg SL tablet DISSOLVE 1 TABLET UNDER THE TONGUE NEEDEDFOR CHEST PAIN- MAY REPEAT EVERY 5 MINUTES [...] 1 tablet by mouth daily at bedtime. COMPOUNDED PRESCRIPTION CMC Push Brace to be used daily as directed. Compression Knee Highs KNEE HIGH COMPRESSION STOCKINGS 20-30 MM. DX: EDEMA, varicose veins hkovtgad-snt-GD-lycopen-lutein (CENTRUM SILVER MEN) 300-600-300 mcg tab Take 1 tablet by mouth oncedaily. FAMILY HISTORY Problem Relation Age of Onset Alzheimer's Disease Father Coronary Artery Disease Mother Heart Mother other (stomach problems) Mother open heart surgery,ashd,diabetes Cataract Maternal Grandfather Cataract Paternal Grandmother Cataract Paternal Grandfather other (obese) Sister Social History Tobacco Use Smoking status: Never Smokeless tobacco: Never Vaping Use Vaping status: Never Used Substance Use Topics Alcohol use: Yes Comment: ocassional Drug use: No Review of Systems Constitutional: Positive for malaise/fatigue. Negative for appetite change, fever and weight loss. HENT: Positive for postnasal drip, rhinorrhea, sneezing and sore throat. Negative for ear pain, hoarse voice and trouble swallowing. Respiratory: Positive for cough. Negative for hemoptysis, sputum production, shortness of breath and wheezing. Cardiovascular: Negative for chest pain, dyspnea on exertion and PND. Gastrointestinal: Negative for abdominal pain, diarrhea, heartburn, nausea and vomiting. Musculoskeletal: Negative for myalgias. Skin: Negative for color change, pallor, rash and wound. Neurological: Negative for headaches. Psychiatric/Behavioral: Negative for agitation and behavioral problems. Objective BP 113/72 Pulse 67 Temp 36.7 C (98.1 F) Resp 20 Wt 93.7 kg (206 lb 9.1 oz) SpO2 100% BMI 29.64 kg/m Physical Exam Vitals and nursing note reviewed. Constitutional: General: He is not in acute distress. Appearance: Normal appearance. He is not ill-appearing, toxic-appearing or diaphoretic. HENT: Head: Normocephalic and atraumatic. Comments: +frontal sinus pressure +maxillary sinus pressure Right Ear: External ear normal. Left Ear: External ear normal. Nose: Congestion present. No rhinorrhea. Mouth/Throat: Mouth: Mucous membranes are moist. Pharynx: Oropharynx is clear. No oropharyngeal exudate or posterior oropharyngeal erythema. Eyes: General: Right eye: No discharge. Left eye: No discharge. Extraocular Movements: Extraocular movements intact. Conjunctiva/sclera: Conjunctivae normal. Pupils: Pupils are equal, round, and reactive to light. Cardiovascular: Rate and Rhythm: Normal rate and regular rhythm. Pulses: Normal pulses. Heart sounds: Normal heart sounds. No murmur heard. No friction rub. No gallop. Pulmonary: Effort: Pulmonary effort is normal. No respiratory distress. Breath sounds: No stridor. Rhonchi present. No wheezing or rales. Comments: Harsh cough noted Chest: Chest wall: No tenderness. Abdominal: General: Abdomen is flat. There is no distension. Palpations: Abdomen is soft. There is no mass. Tenderness: There is no abdominal tenderness. There is no guarding or rebound. Hernia: No hernia is present. Musculoskeletal: General: No swelling, tenderness, deformity or signs of injury. Normal range of motion. Cervical back: Normal range of motion and neck supple. No rigidity or tenderness. Right lower leg: No edema. Left lower leg: No edema. Lymphadenopathy: Cervical: Cervical adenopathy present. Skin: General: Skin is warm and dry. Capillary Refill: Capillary refill takes less than 2 seconds. Coloration: Skin is not jaundiced or pale. Findings: No bruising, lesion or rash. Neurological: General: No focal deficit present. Mental Status: He is alert and oriented to person, place, and time. Cranial Nerves: No cranial nerve deficit. Sensory: No sensory deficit. Motor: No weakness. Coordination: Coordination normal. Gait: Gait normal. Deep Tendon Reflexes: Reflexes normal. Psychiatric: Mood and Affect: Mood normal. Behavior: Behavior normal. Thought Content: Thought content normal. Assessment and Plan ASSESSMENT/PLAN: 1. URI, acute - ICD9: 465.9, ICD10: J06.9 (primary diagnosis) X 4 days - Symptomatic treatment with prn analgesia - Supportive care with fluids and rest - The patient may also use OTC cough and cold meds as needed, warm salt water gargles, throat lozenges and/or OTC throat spray as needed, and nasal saline gtts and suction prn. - Follow up in 3-5 days if symptoms persist or sooner if worsening of symptoms - COVID & INFLUENZA A/B & RSV PCR, ROUTINE - XR CHEST 2V FRONTAL/LAT 2. Acute cough - ICD9: 786.2, ICD10: R05.1 X 4 days Worsening Safety net ATB Doxy provided if sx worsen and negative flu - COVID & INFLUENZA A/B & RSV PCR, ROUTINE - XR CHEST 2V FRONTAL/LAT-negative for acute process Carolyne Gillis APRN.CHIEF OPERATOR HYDROFORMER documented in this encounterMercy Health05-13-2024 History of Present illness Narrative* Blake Wilcox MD - 12/11/2023 9:53 AM EDT Patient presents with: Physical HPI: Patient presents today for office visit for check up. Back pain: Still feeling effects from fall when skiing back in September. Just feels like upper back all jammed up. Feels tight. Has seen Dr Barney and Dr. Butler.. He had therapy for his scapula per Dr Butler. Has compression fracture and scapular fracture. Dr Barney had discussed physical therapy particularly for his upper back. They have diagnosed his with bursitis. Upper back is still uncomfortable. He is considering chiropractic. Discussed I would be more inclined to have his see physical therapy for both. Has a remote lower back injury. Has issues with L4. Has chronic discomfort and left sided leg issues. Did physical therapy and was doing better. Still has chronic discomfort. Saw Dr Allen for his noe.benefiting from its use. Bp is good. Has rare twinges of chest discomfort. Some slight increase in shortness of breath. These issues have there since his NM. He sees cardiology in next month. Encouraged him to talk with him. No new changes. Red flags for re-assessment reviewed with patient in detail. . No edema. Discussed he has a lot of marital strife at times. Doing ok now. Does not feel he needs treatment. Has ed. Discussed viagra is not a good ideas with his meds. Discussed pros and cons of testosterone. (Minimal Depression) LUIS ANGEL-7 Score: 0 (Minimal Anxiety) No further intervention at this time Remains on iron. Was low when he was donating blood. Most recent colonoscopy and egd are ok. Last cbc was ok . Latest Ref Rng 03/20/2023 08/17/2023 WBC 3.70 - 11.00 k/uL 7.26 7.43 RBC 4.20 - 6.00 m/uL 5.20 5.17 Hemoglobin 13.0 - 17.0 g/dL 16.3 16.6 Hematocrit 39.0 - 51.0 % 49.9 48.0 MCV 80.0 - 100.0 fL 96.0 92.8 MCH 26.0 - 34.0 pg 31.3 32.1 MCHC 30.5 - 36.0 g/dL 32.7 34.6 RDW-CV 11.5 - 15.0 % 12.6 11.9 Platelet Count 150 - 400 k/uL 204 187 MPV 9.0 - 12.7 fL 11.3 10.5 Neut% % 65.3 66.9 Abs Neut (ANC) 1.45 - 7.50 k/uL 4.74 4.98 Lymph% % 19.6 20.5 Abs Lymph 1.00 - 4.00 k/uL 1.42 1.52 [place]% % 12.9 10.0 Abs [place] <0.87 k/uL 0.94 (H) 0.74 Eosin% % 1.5 1.6 Abs Eosin <0.46 k/uL 0.11 0.12 Baso% % 0.4 0.7 Abs Baso <0.11 k/uL 0.03 0.05 Immature Gran % % 0.3 0.3 IMMATURE GRANS (ABS) <0.10 k/uL <0.03 <0.03 NRBC /100 WBC 0.0 0.0 Absolute nRBC <0.01 k/uL <0.01 <0.01 DTYPE Auto Auto Protein, Total 6.3 - 8.0 g/dL 6.9 6.8 Albumin 3.9 - 4.9 g/dL 4.4 4.3 Calcium 8.5 - 10.2 mg/dL 9.7 9.5 Bilirubin, Total 0.2 - 1.3 mg/dL 0.5 0.9 Alkaline Phosphatase 38 - 113 U/L 74 74 AST 14 - 40 U/L 20 21 ALT 10 - 54 U/L 22 24 Glucose 74 - 99 mg/dL 67 (L) 96 BUN 9 - 24 mg/dL 17 17 Creatinine 0.73 - 1.22 mg/dL 0.95 1.00 Sodium 136 - 144 mmol/L 142 142 Potassium 3.7 - 5.1 mmol/L 4.6 4.3 Chloride 97 - 105 mmol/L 105 104 CO2 22 - 30 mmol/L 26 29 Anion Gap 9 - 18 mmol/L 11 9 eGFR >=60 mL/min/1.73m 88 82 Cholesterol, Total <200 mg/dL 152 Triglyceride <150 mg/dL 143 HDL Cholesterol >39 mg/dL 43 Non HDL Cholesterol <130 mg/dL 109 Fasting Time hrs 12 VLDL Cholesterol <30 mg/dL 29 TC:HDL Ratio <5.10 3.53 LDL Cholesterol <100 mg/dL 80 LDL:HDL Ratio <2.54 1.86 Testosterone 193 - 824 ng/dL 284 Legend: (H) High (L) Low MEDICATIONS: Current Outpatient Medications Medication Sig esomeprazole (NEXIUM) 40 mg capsule Take 1 capsule by mouth once daily. oxyCODONE IR (ROXICODONE) 5 mg immediate release tablet tamsulosin (FLOMAX) 0.4 mg Take 1 capsule by mouth daily at bedtime. famotidine (PEPCID) 20 mg tablet Take 1 tablet by mouth daily at bedtime. melatonin 10 mg tab Take 10 mg by mouth daily at bedtime. clopidogrel (PLAVIX) 75 mg tablet Take 75 mg by mouth once daily. losartan (COZAAR) 25 mg tablet Take 25 mg by mouth once daily. nitroglycerin sublingual (NITROQUICK) 0.4 mg SL tablet DISSOLVE 1 TABLET UNDER THE TONGUE NEEDEDFOR CHEST PAIN- MAY REPEAT EVERY 5 MINUTES [...] STOCKINGS 20-30 MM. DX: EDEMA, varicose veins ytnpnnmd-mgc-EO-lycopen-lutein (CENTRUM SILVER MEN) 300-600-300 mcg tab Take 1 tablet by mouth oncedaily. No current facility-administered medications for this visit. ALLERGIES: ALLERGIES Allergen Reactions Baycol Intolerance Leg cramps Erythromycin Intolerance GI upset Lipitor [Atorvastat* Intolerance leg pain,weakness Niaspan [Niacin] Hives Penicillins Hives hives Seasonal Allergies Other: See Comments Cockroaches, trees, weeds PAST MEDICAL HISTORY Diagnosis Date Arthritis Benign [...] SURGERY HX FRACTURE SURGERY HEMORRHOID SURGERY HX [id number] [place] HERNIA REPAIR HX PAST SURGICAL HISTORY [...] past medical history, surgical history, family history andsocial history today. REVIEW OF SYSTEMS No gi or gu issues. All other reviewed and negative other than HPI. HEALTH MAINTENANCE: Reviewed health maintenance issues today and recommended the following in detail. Advance Directive Discussion Never done Behavioral Health Screening Never done Covid-19 Vaccine(2022- season) due on 10/02/2023 VITALS: BP 103/66 Pulse 63 Wt 92.5 kg (204 lb) SpO2 96% BMI 29.27 kg/m Last 4 Encounter Wt Readings: Date: Wt: 09/22/2023 94.3 kg (208 lb) 07/05/2023 93.7 kg (206 lb 9.6 oz) 03/20/2023 92.5 kg (204 lb) 10/06/2022 92.1 kg (203 lb) PHYSICAL EXAMINATION: General appearance: Well appearing, alert, in no acute distress, well-hydrated, well nourished. Skin: Skin color, texture, turgor normal, no suspicious rashes or lesions Head: Normocephalic, no masses, lesions, tenderness or abnormalities Lungs: Lungs clear to auscultation. No wheezing, rhonchi, rales Heart: RRR without murmur, gallop, or rubs. No ectopy Abdomen: Normal abdominal exam, Abdomen soft, non-tender. Bowel sounds normal. No masses, organomegaly Extremities: No deformities, edema, skin discoloration, clubbing or cyanosis. Good capillary refill. ASSESSMENT/PLAN: 1. Coronary artery disease involving [place] heart without angina pectoris, unspecified vessel or lesion type - ICD9: 414.01, ICD10: I25.10 (primary diagnosis) - follow with cardiology. 2. Encounter for immunization - ICD9: V03.89, ICD10: Z23 - [employer] COVID-19 VACCINE (2022- SEASON) AGE 12+ YR 3. NOE (obstructive sleep apnea) - ICD9: 327.23, ICD10: G47.33 - continue rx. 4. Gastroesophageal reflux disease without esophagitis - ICD9: 530.81, ICD10: K21.9 - stable. 5. Hypogonadism in male - ICD9: 257.2, ICD10: E29.1 - currently stable. Discussed following with cardiology first. 6. Generalized anxiety disorder - ICD9: 300.02, ICD10: F41.1 - - stable. 7. Bilateral carotid artery stenosis - ICD9: 433.10, 433.30, ICD10: I65.23 - per cardiology 8. Compression deformity of vertebra - ICD9: 738.5, ICD10: M43.9 - CONSULT TO PHYSICAL THERAPY 9. DDD (degenerative disc disease), lumbar - ICD9: 722.52, ICD10: M51.36 - CONSULT TO PHYSICAL THERAPY 10. History of iron deficiency - ICD9: V12.3, ICD10: Z86.39 - stop iron and labs in eight weeks - COMPLETE BLOOD COUNT AND DIFFERENTIAL - IRON AND TIBC Blake Wilcox MD documented in this encounterMercy Health04-10-2024 Miscellaneous Notes* Telephone Encounter - Pato Brewster LPN - 11/08/2023 12:15 PM EDT Patient has been identified by name and date of : Yes Requested Prescriptions Pending Prescriptions Disp Refills esomeprazole (NEXIUM) 40 mg capsule 90 capsule 3 Sig: Take 1 capsule by mouth once daily. RX INSTRUCTIONS: Patient aware RX will be sent to pharmacy. No need to notify patient. Pato Brewster LPN documented in this encounterMercy Health02-23-2024 History of Present illness Narrative* Blake Wilcox MD - 09/22/2023 9:43 AM EST Patient presents with: ER F/U HPI: Patient presents today for office visit for ER follow up. Seen in [facility] ER on 09/19/23 after ski accident. Presented to ER with back pain and right shoulder pain. Head CT negative. C-spine CT possible mild T3 compression with degenerative changes. T-spine CT mild compression fracture T3 and T7 X-ray showed fracture to scapula He was wearing a helmet. Ct of head was ok. No LOC. Just saw Dr Barney, spine Dr. Butler for his scapula fracture. No memory loss. No nausea or vomiting. No numbness or weakness. Hospital had set him up for a bone density test which was likely triggered for compression deformity even thought it was a high impact injury which makes it less likely. Taking Oxycodone prn rarely using. MEDICATIONS: Current Outpatient Medications Medication Sig oxyCODONE IR (ROXICODONE) 5 mg immediate release tablet tamsulosin (FLOMAX) 0.4 mg Take 1 capsule by mouth daily at bedtime. famotidine (PEPCID) 20 mg tablet Take 1 tablet by mouth daily at bedtime. melatonin 10 mg tab Take 10 mg by mouth daily at bedtime. esomeprazole (NEXIUM) 40 mg capsule Take 1 capsule by mouth once daily. clopidogrel (PLAVIX) 75 mg tablet Take 75 mg by mouth once daily. losartan (COZAAR) 25 mg tablet Take 25 mg by mouth once daily. nitroglycerin sublingual (NITROQUICK) 0.4 mg SL tablet DISSOLVE 1 TABLET UNDER THE TONGUE NEEDEDFOR CHEST PAIN- MAY REPEAT EVERY 5 MINUTES [...] STOCKINGS 20-30 MM. DX: EDEMA, varicose veins nidzajjj-vxn-NB-lycopen-lutein (CENTRUM SILVER MEN) 300-600-300 mcg tab Take 1 tablet by mouth oncedaily. No current facility-administered medications for this visit. ALLERGIES: ALLERGIES Allergen Reactions Baycol Intolerance Leg cramps Erythromycin Intolerance GI upset Lipitor [Atorvastat* Intolerance leg pain,weakness Niaspan [Niacin] Hives Penicillins Hives hives Seasonal Allergies Other: See Comments Cockroaches, trees, weeds PAST MEDICAL HISTORY Diagnosis Date Arthritis Benign [...] HX FRACTURE SURGERY HEMORRHOID SURGERY HX 2017 [facility] [place] HERNIA REPAIR HX PAST SURGICAL HISTORY [...] past medical history, surgical history, family history andsocial history today. REVIEW OF SYSTEMS All other reviewed and negative other than HPI. VITALS: BP 102/62 Pulse 72 Ht 177.8 cm (5' 10) Wt 94.3 kg (208 lb) SpO2 96% BMI 29.84 kg/m Last 4 Encounter Wt Readings: Date: Wt: 07/05/2023 93.7 kg (206 lb 9.6 oz) 03/20/2023 92.5 kg (204 lb) 10/06/2022 92.1 kg (203 lb) 09/19/2022 96.2 kg (212 lb) PHYSICAL EXAMINATION: General appearance: Well appearing, alert, in no acute distress, well-hydrated, well nourished. Skin: Skin color, texture, turgor normal, no suspicious rashes or lesions Head: Normocephalic, no masses, lesions, tenderness or abnormalities Eyes: Anicteric sclera. Pupils are equally round and reactive to light. Extraocular movements are intact. Neck: nontender. Back: tender throughout. Lungs: Lungs clear to auscultation. No wheezing, rhonchi, rales Heart: RRR without murmur, gallop, or rubs. No ectopy Abdomen: Normal abdominal exam, Abdomen soft, non-tender. Bowel sounds normal. No masses, organomegaly Extremities: No deformities, edema, skin discoloration, clubbing or cyanosis. Good capillary refill. Neuro: Gait normal. Reflexes normal and symmetric. Sensation grossly intact., Negative findings: mental status intact, cranial nerves 2-12 intact, muscle tone normal, muscle strength normal Decreased range of motion on right shoulder. ASSESSMENT/PLAN: 1. Compression deformity of vertebra - ICD9: 738.5, ICD10: M43.9 (primary diagnosis) - per spine. Stable. 2. Closed fracture of scapula with routine healing, unspecified laterality, unspecified part of scapula, subsequent encounter - ICD9: V54.11, ICD10: S42.109D - per ortho. Stable. 3. Closed head injury, subsequent encounter - ICD9: V58.89, 959.01, ICD10: S09.90XD - Red flags for re-assessment reviewed with patient in detail. Doing well. Blake Wilcox MD documented in this encounterMercy Health02-21-2024 Miscellaneous Notes* Telephone Encounter - Aliya Smart RN - 09/20/2023 8:31 AM EST Pt called in and reports he fell skiing and was at [facility] ER yesterday. He states he broke his T3, T7,and R scapula. Pt was to have a 6 month f/u on 09/22/23, changed that to ER f/u and told him he would need to reschedule his 6 month f/u. Contacted Dr Wilcox's nurse Pato to get [facility] ER records for provider. documented in this encounterMercy Health02-20-2024 Discharge summary Author Brian Hussein [facility] September 20, 2023 12:09am Note Date/Time September 19, 2023 11:12pm [facility] Medical Records Department [address] [address] Emergency Department Summary 09/19/23 MR#: [id number] Acct: [id number] Name: KETAN COTTON Rep #:[id number] : 1955 67 From: Brian Hussein DO PCP: Dr. Blake Wilcox MD Status:REG E R Location: ED HPI History of Present Illness Chief Complaint: Upper Extremity Injury Narrative Narrative: 67-year-old male presenting with back pain and right shoulder pain. Patient states he was skiing with his grandson and he states that gravity was pulling him harder that his grandson and ended up going faster. He states that he was going very quickly as he went downhill and his grandson was in his way because he was moving slower and he came up on a hill where he went into the air landingon the upper back and neck. He states he hit his head but did not lose consciousness. Patient states that he had pain in the back initially. He states having pain with movement of the right shoulder and cannot lift it very well. Denies nausea, vomiting, visual complaints. Patient is on Plavix but no other anticoagulation. Patient did not injure anything else. [facility] Medical History Atherosclerotic heart disease of [place] coronary artery without angina pectoris Enthesopathy of hip region Generalized anxiety disorder GERD (gastroesophageal reflux disease) Hemorrhoids History of vitamin D deficiency Hyperlipidemia Non-ST elevation NM (NSTEMI) Home Medications esomeprazole magnesium 40 mg capsule,delayed release 40 mg PO DAILY Check with primary doctor 07/16/17 [History Last Taken 07/16/17] ferrous sulfate 325 mg (65 mg iron) tablet 325 mg PO DAILY Check with primary doctor 07/16/22 [History Last Taken Unknown] multivitamin 1 tab PO DAILY Check with primary doctor 07/16/22 [History Last Taken Unknown] tamsulosin 0.4 mg capsule 0.4 mg PO DAILY Check with primary doctor 07/16/22 [History Last Taken Unknown] cholecalciferol (vitamin D3) 25 mcg (1,000 unit) capsule 25 mcg PO DAILY 08/08/22 [History Last Taken Unknown] aspirin 81 mg tablet,delayed release 81 mg PO BREAKFAST #30 tabs 08/19/22 [Rx Last Taken Unknown] diclofenac sodium 1 % topical gel 2 g topical ONCE PRN 01/09/23 [History Last Taken Unknown] famotidine 20 mg tablet 20 mg PO DAILY 01/09/23 [History Last Taken Unknown] triamcinolone acetonide 0.1 % topical cream 1 applic topical DAILY 01/09/23 [History Last Taken Unknown] losartan 25 mg tablet 25 mg PO DAILY #90 tabs 02/20/23 [Rx Last Taken Unknown] albuterol sulfate 90 mcg/actuation aerosol inhaler 2 puff inhalation Q6H PRN 06/15/23 [History Last Taken Unknown] nitroglycerin 0.4 mg sublingual tablet 0.4 mg sublingual Q5M PRN Cardiac/Chest Pain #25 tabs 07/05/23 [Rx Last Taken Unknown] rosuvastatin 20 mg tablet See Rx Instructions .Route .COMPLEX #90 tabs 07/25/23 [Rx Last Taken Unknown] metoprolol succinate 25 mg tablet,extended release 24 hr (Toprol XL) 25 mg PO DAILY #90 tabs 08/01/23 [Rx Last Taken Unknown] clopidogrel 75 mg tablet See Rx Instructions .Route .COMPLEX #90 tabs 08/25/23 [Rx Last Taken Unknown] oxycodone 5 mg capsule 5 mg PO Q6H PRN pain 3 days #12 caps 09/19/23 [Rx Last Taken Unknown] Allergy/AdvReac Type Severity Reaction Status Date / Time erythromycin base Allergy Intermediate Nausea/Vom/ Verified 09/19/23 21:32 Diarrhea niacin Allergy Intermediate Hives Verified 09/19/23 21:32 [From Niaspan Extended-Release] Penicillins Allergy Unknown Verified 09/19/23 21:32 atorvastatin AdvReac Intermediate myalgias Verified 09/19/23 21:32 cerivastatin [From Baycol] AdvReac Intermediate leg cramps Verified 09/19/23 21:32 Family History Father Alzheimer's disease Mother CAD (coronary artery disease) Diabetes Heart disease open heart surgery History of motor vehicle accident Surgical History H/O arthroscopy of knee History of foot surgery (~07/2019) History of hemorrhoidectomy History of open reduction and internal fixation (ORIF) procedure History of surgery on upper extremity History of tonsillectomy History of umbilical hernia repair History of varicose vein stripping S/P excision of neuroma Stented coronary artery (07/18/22) Social History Smoking Status: Never smoker alcohol intake: current alcohol intake frequency: a few times a month substance use type: does not use caffeine: Yes Type: coffee Number of servings: 1 ROS ROS ED Constitutional Constitutional ED: Denies chills, fever(s) or sweats Eyes Eyes: Denies blurry vision or change in vision ENT ENT ED: Denies ear pain or sore throat Cardiovascular Cardiovascular: Denies chest pain, palpitations or racing heartbeat Respiratory/Chest Respiratory/Chest: Denies cough, dyspnea or sputum Gastrointestinal Gastrointestinal: Denies abdominal pain, constipation, diarrhea, nausea or vomiting Genitourinary Genitourinary ED: Denies dysuria, hematuria or urinary frequency Musculoskeletal Musculoskeletal: Reports back pain, neck pain and other Details: Right shoulder pain ; Denies arthralgias or myalgias Integumentary Denies abscess, Abrasions or rash Neurologic Neurologic: Denies headache(s), paresthesias or weakness Psychiatric Psychiatric: Denies anxiety, depression, suicidal ideation or suicidal thoughts Endocrine Endocrinology: Denies polydipsia or polyuria EXAM Physical Exam Const Vital Signs: 09/19/23 21:32 Temperature 98.3 F Temperature Source Temporal Pulse Rate 64 Respiratory Rate 14 Blood Pressure 159/91 H Blood Pressure Mean 113 Pulse Ox 100 Oxygen Delivery Method Room Air Positive well nourished General Appearance ED: NAD HEENT Reports moist mucous membranes normocephalic and atraumatic Eyes PERRL Chest Wall inspection of chest normal and palpation of chest normal Chest Narrative: Equal symmetric breath sounds chest wall rise Resp normal respiratory effort and clear to auscultation bilaterally Auscultation: Negative for rales, rhonchi or wheezes Cardio regular rate and regular rhythm Back/Spine no CVA tenderness Back/Spine Narrative: No midline cervical spinal tenderness, deformity, step-off. There is some midline thoracic spinal tenderness around T2 and 3 as well as T6 and 7. No obvious deformities. No bruising, crepitance, ecchymosis. Extremity Extremity Narrative: Tenderness to palpation in the right medial scapular region at the inferior angle of the scapula. Patient has difficulty with flexion, extension, abductionof the right shoulder. Unable to passively range the shoulder without significant pain. No pain over the shoulder girdle or pain in the clavicle region on the right. Deltoid is nontender. No pain in the upper arm, right elbow. Neuro oriented x3 and CN's II-XII intact bilaterally Sensorium / Orientation: alert Psych mental status grossly normal MDM MDM MDM Narrative Medical decision making narrative: Patient presenting with neck, shoulder, back pain. Patient sounds as if he was going very quickly as he was going downhill and he states he caught air landing on his upper back and hitting his head and neck. Denies LOC. Right shoulder exam consistent with torn rotator cuff and there is some tenderness to palpationat the medial aspect of the shoulder blade. There is some midline thoracic tenderness as well around T3 and T7. Patient given [place]. CT brain, cervical spine, thoracic spine all obtained. CT brain negative for acute findings. CT cervical spine shows no acute fracture of the cervical vertebra. CT of the thoracic spine shows that there is an acute compression fracture of T3 and neck and acute compression fracture of T7. Shoulder x-ray on my interpretation does showsome concern for possible subtle lucency at the inferior angle of the scapula and this is where the patient is tender. Radiology interprets this and agrees. Given this and the high impact I will obtain a CT of the chest to rule out otheracute trauma. Patient amenable to this. CT of the chest on my interpretation shows signs of right-sided scapular fracture. Discussed the case with Dr. Barnard and he felt if there was no evidence of intrathoracic injury and the shoulder needed follow-up as far as a scapular fracture and rotator cuff tear hecould put a put in a sling and follow-up with him. I discussed with him whetherhe could have a referral from him for the T3 and T7 compression deformities since these are acute from the fall today and he recommended that I speak with orthopedic spine. Will put a page out. Did wait for approximately 1 hour for acallback return phone call. I do not believe this requires emergent evaluation. I will have him follow-up as an outpatient. He was given oxycodone for pain. Patient will follow-up Dr. Barnard and Dr. Vergara where he can follow-up with his PCP for referral to [facility]. Impression: 1. T3 compression fracture 2. T7 compression fracture 3. Scapular fracture Lab Data Attestation: I reviewed the patient's lab results. Radiography Diagnostic Testing: Clinical Impression(s) from Imaging Studies Brain CT 09/19/23 21:57 IMPRESSION: Negative head/brain CT without intravenous contrast. Electronically Signed: Gerardo Flower DO [place] at 22:33 EST , Cervical Spine CT 09/19/23 21:57 IMPRESSION: 1. Possible mild T3 superior endplate compression deformity is again identified. 2. Degenerative changes in the cervical spine. No additional evidence of acute osseous abnormality. Electronically Signed: Gerardo VKavya Adrian DO at 22:42 EST , Thoracic Spine CT 09/19/23 21:57 IMPRESSION: 1. Likely acute mild superior endplate compression fracture of T3. 2. Likely acute mild compression fracture of T7 associated with a Schmorl''s node. 3. Multilevel degenerative changes. RECOMMENDATIONS: Consider MRI for further evaluation. Electronically Signed: Gerardo ZamarripaKavya Adrian DO at 22:37 EST , Shoulder X-Ray 09/19/23 22:20 IMPRESSION: 1. Subtle angulation and lucency at the inferior angle of the scapula perhaps artifactual or indicative of a fracture. Correlate for pain at this location. 2. Acromioclavicular and glenohumeral joint arthrosis. Electronically Signed: Gerardo ZamarripaKavya Adrian DO at 22:40 EST , Discharge Plan Triage Chief Complaint: Upper Extremity Injury ED Provider: Brian Hussein Dx/Rx/DC Orders Clinical Impression: Traumatic compression fracture of T7 vertebra, Traumatic compression fracture of T3 vertebra, Closed right scapular fracture Instructions: Shoulder Blade or Collarbone ..., ED Fracture, Vertebral Compression Prescriptions: New oxycodone 5 mg capsule 5 mg PO Q6H PRN (Reason: pain) 3 Days Qty: 12 0RF No Action cholecalciferol (vitamin D3) 25 mcg (1,000 unit) capsule 25 mcg PO DAILY famotidine 20 mg tablet 20 mg PO DAILY diclofenac sodium 1 % gel 2 g topical ONCE PRN triamcinolone acetonide 0.1 % cream 1 applic topical DAILY albuterol sulfate 90 mcg/actuation HFA aerosol inhaler 2 puff inhalation Q6H PRN esomeprazole magnesium 40 MG capsule,delayed release(DR/EC) 40 mg PO DAILY multivitamin Tablet 1 tab PO DAILY tamsulosin 0.4 mg capsule 0.4 mg PO DAILY ferrous sulfate 325 mg (65 mg iron) Tablet 325 mg PO DAILY aspirin 81 mg tablet,delayed release (DR/EC) 81 mg PO BREAKFAST Qty: 30 11RF losartan 25 mg tablet 25 mg PO DAILY Qty: 90 3RF nitroglycerin 0.4 mg tablet, sublingual 0.4 mg sublingual Q5M PRN (Reason: Cardiac/Chest Pain) Qty: 25 3RF rosuvastatin 20 mg tablet See Rx Instructions .ROUTE .COMPLEX Qty: 90 3RF Dose Instruction: TAKE 1 TABLET AT BEDTIME Rx Instructions: TAKE 1 TABLET AT BEDTIME metoprolol succinate [Toprol XL] 25 mg tablet extended release 24 hr 25 mg PO DAILY Qty: 90 3RF clopidogrel 75 mg tablet See Rx Instructions .ROUTE .COMPLEX Qty: 90 3RF Dose Instruction: TAKE 1 TABLET DAILY Rx Instructions: TAKE 1 TABLET DAILY Primary Care Provider: Blake Wilcox Referrals: Ruy Guzman DO [Med Staff - Active Staff] - As soon as possible Blake Wilcox MD [Primary Care Provider] - Disposition Disposition: Home, Self Care What to do if you have Problems For any increased pain, shortness of breath, bleeding, nausea or vomiting, chestpain, or any unexpected problems, contact your Primary Care Provider. Call [facility] ([phone]) or report to the closest Emergency Room. Call 911 if necessary. 09/20/238 <Electronically signed by Brian Hussein DO> Cosigner Signature (if applicable): CC: Dr. Blake Wilcox MD ~ Signed [facility] Work Phone: [phone]) 901-397012-06-2023 Instructions* Patient Instructions* Tray Nuñez MD - 07/05/2023 6:24 PM EST Fact Sheet for Patients And Caregivers Emergency Use Authorization (EUA) Of LAGEVRIO (molnupiravir) capsules For Coronavirus Disease 2019 (COVID-19) What is the most important information I should know about LAGEVRIO? LAGEVRIO may cause serious side effects, including: LAGEVRIO may cause harm to your unborn baby. It is not known if LAGEVRIO will harm your baby if youtake LAGEVRIO during . LAGEVRIO is not recommended for use in . LAGEVRIO has not been studied in . LAGEVRIO was studied in animals only. When LAGEVRIO was given to animals, LAGEVRIO caused harm to their unborn babies. You and your healthcare provider may decide that you should take LAGEVRIO during if thereare no other COVID-19 treatment options approved or [...] method of control (contraception) consistently and correctly duringtreatment with LAGEVRIO and for 4 days after the last dose of LAGEVRIO. Talk to your healthcare provider about reliable control methods. Before starting treatment with LAGEVRIO your healthcare provider may do a test to see if you are before starting treatment with LAGEVRIO. Tell your healthcare provider right away if you become or think you may be duringtreatment with LAGEVRIO. Registry: There is a registry for individuals who take LAGEVRIO during . The purpose of this program is to collect information about the health of you and your baby. If you are or become during treatment with LAGEVRIO, you are encouraged to reportyour use of LAGEVRIO during to this registry at [email or web address]://[email or web address].[email or web address].Malesbanget or . For individuals who are sexually active with partners who are able to become : It is not known if LAGEVRIO can affect sperm. While the risk is regarded as low, animal studies to fully assess the potential for LAGEVRIO to affect the babies of males treated with LAGEVRIO have notbeen completed. A reliable method of control (contraception) [...] COVID-19 treatment options approved or authorized by theFDA are not accessible or clinically appropriate. The U.S. Food and Drug Administration (FDA) has issued an Emergency Use Authorization (EUA) to makeLAGEVRIO available during the COVID-19 pandemic (for more details about an EUA please see What is an Emergency Use Authorization? at the end of this document). LAGEVRIO is not an FDA-approved medicine in the [place]. Read this Fact Sheet for information about LAGEVRIO. Talk to your healthcareprovider about your options if you have any questions. It is your choice to take LAGEVRIO. What is COVID-19? COVID-19 is caused by a virus called a coronavirus. You can get COVID-19 through close contact withanother person who has the virus. COVID-19 illnesses have ranged from very ddyn-pn-gppuoz, including illness resulting in . While information so far suggests that most COVID-19 illness is mild, serious illness can happen and maycause some of your other medical conditions to [...] use of LAGEVRIO for the treatment of mild- tomoderate COVID-19 in adults under an EUA. For [...] serious illnesses Take any medicines including prescription, kond-jfw-wrllrzy medicines, vitamins, and herbal products. How do [...] NG or OG that is size 12 Slovenian (FR) or larger. If you miss a dose of LAGEVRIO: If it has been less than 10 hours since the missed dose, take it as soon as you remember. If it has been more than 10 hours since the missed dose, skip the missed dose and take your dose atthe next scheduled time. Do not double the [...] tell you what size catheter tip syringe youwill need to take or give a dose of LAGEVRIO. Place the needed supplies on a clean work surface. Follow your healthcare provider s instructions on how to flush the NG or OG feeding tube. Flush theNG or OG feeding tube with 5 mL [...] contents and water well for 3 minutes. Thecapsule contents may not dissolve completely. Remove the [...] any capsule contents left in the container orcatheter tip syringe. Use the same catheter tip syringe to flush the NG or OG feeding tube 2 times with 5 mL of water (10mL total). Rinse the container, lid and catheter tip syringe well with clean water after use. Place on a cleanpaper towel until next use. What are the [...] to treat people with COVID-19. Go to https://www.fda.gov/uvjskcrdu-vxkadjwcgaug-idc-response/ubh-duugkwmmspfoufr-fut- policy-framework/hwlakqhuc-viq-ozeyprdwxynwo for more information. It is your choice [...] go away. Report side effects to FDA [employer] at www.fda.gov/medwatch or call 1-800-fda-1088 (1243.238.6028). How should I store LAGEVRIO? Store LAGEVRIO capsules at room temperature between 68 F to 77 F (20 C to 25 C). Keep LAGEVRIO and all medicines out of the reach of children. How can I learn more about COVID-19? Ask your healthcare provider. Visit www.cdc.gov/COVID19 Contact your local or state public health department. Call [employer] at (toll free in the [place] Visit www.Leotus What Is an Emergency Use Authorization (EUA)? The [place] FDA has made LAGEVRIO available under an emergency access mechanism called an Emergency Use Authorization (EUA) The EUA is supported by a [place] of Health and Human Service (HHS)declaration that circumstances exist to justify emergency use of drugs and biological products during the COVID-19 pandemic. LAGEVRIO for the treatment of adults with a current diagnosis of fqwi-hi-cmazaehd COVID-19 who are at high risk for progression to severe COVID- 19, including hospitalization or , and for whom [...] evidence available including data from adequate and well-controlledclinical trials, if available, it is reasonable to [...] no longer be used under the EUA). Manuf. greco: [facility] [employer] [address] For patent information: www.1calendar.Malesbanget/research/patent Copyright [employer], [place], [place] and its affiliates. All rights reserved. [id number] Revised: August 2022 documented in this encounterMercy Health12-06-2023 History of Present illness Narrative* Tray Nuñez MD - 07/05/2023 6:18 PM EST Patient presents with: Fever: Drainage, stomach ache, [...] SURGERY HX FRACTURE SURGERY HEMORRHOID SURGERY HX 2016Xamuftf-Reiqv-Sh [place] HERNIA REPAIR HX PAST SURGICAL HISTORY [...] tablet DISSOLVE 1 TABLET UNDER THE TONGUE NEEDEDFOR CHEST PAIN- MAY REPEAT EVERY 5 MINUTES [...] STOCKINGS 20-30 MM. DX: EDEMA, varicose veins lhtdwicv-mbn-XC-lycopen-lutein (CENTRUM SILVER MEN) 300-600-300 mcg tab Take 1 tablet by mouth oncedaily. No current facility-administered medications for this visit. [...] increased WOB Molnupiravir Eligibility and Patient Discussion [facility] Formulary Restriction Criteria: Adult outpatients 18 years [...] whether the patient is based on the firstday of the last menstrual period in individuals [...] patient was also informed of the significant knownbenefits and potential risks of molnupiravir, and the [...] those alternatives. The patient was provided electronically withthe Fact Sheet for Patients, Parents and Caregivers. The patient was also instructed that in addition to the treatment with molnupiravir, he/she should continue to self-isolate and use infection control measures (e.g., wear mask, isolate, social distance, avoid sharing personal items, clean and disinfect high touch surfaces, and frequent handwashing) according to CDC guidelines. The patient stated understanding and gave verbal consent to proceeding with molnupiravir treatment. Tray Nuñez MD July 05, 2023 6:27 PM ASSESSMENT/PLAN: 1. Acute COVID-19 - ICD9: 079.89, ICD10: U07.1 (primary diagnosis) 2. Coronary artery disease involving timbi-sha shoshone heart without angina pectoris, unspecified vessel or [...] pain, shortness of breath, and lethargy; in theER if severe. Tray Nuñez MD documented in this encounterMercy Health12-04-2023 Miscellaneous Notes* Telephone Encounter - Ramiro Denny - 07/03/2023 10:21 AM EST Patient phones requesting refills as follows: Requested Prescriptions Pending Prescriptions Disp Refills famotidine (PEPCID) 20 mg tablet 30 tablet 5 Sig: Take 1 tablet by mouth daily at bedtime. *Pt requesting rx for 90 day supply. Please review and advise. Ramiro Denny documented in this encounterMercy Health11-04-2023 Miscellaneous Notes* Addendum Note - Aliya Smart RN - 06/03/2023 10:22 AM EDTAddended by: ALIYA SMART on: 06/03/2023 10:22 AM Modules accepted: Orders * Addendum Note - Thiago Betts - 06/03/2023 9:20 AM EDTAddended by: THIAGO BETTS on: 06/03/2023 09:20 AM Modules accepted: Orders documented in this encounterMercy Health08-25-2023 Miscellaneous Notes* Telephone Encounter - Aliya Smart RN - 03/24/2023 8:58 AM EDT Pt called and is notified of providers message and instructions. Pt voices understanding. Faxed last OV note, demo sheet, x-ray results, and orders to [facility] [employer] fax # [phone]. Aliya Smart RN * Telephone Encounter - Blake Wilcox MD - 03/23/2023 5:27 PM EDT Lets do therapy first * Telephone Encounter - Heather Black - 03/23/2023 3:09 PM EDT Talked to patient and he wants to know what you prefer him to do PT or Ortho? * Telephone Encounter - Blake Wilcox MD - 03/23/2023 2:46 PM EDT Xray shows some arthritis in his knee. We could have him try physical therapy or see ortho. Have any preferences. documented in this encounterMercy Health08-21-2023 History of Present illness Narrative* Ramiro Palmer, RT(R) - 03/20/2023 2:30 PM EDT Radiology Service Progress Note PATIENT NAME: Ketan Cotton DATE OF SERVICE: March 20, 2023 TIME: 2:23 PM PATIENT IDENTITY VERIFICATION COMPLETED USING TWO (2) IDENTIFIERS: Name and Date of confirmedby patient verbally. FALL SCREENING: Has the patient had 2 falls in the last year or 1 fall with injury or currently using an Ambulatory Assistive Device (Walker, Cane, Wheelchair, Crutches, etc.)? No PATIENT GENDER DATA: Male PATIENT RELEVANT IMPLANT DATA REVIEWED: Not Applicable RADIOLOGY DEPARTMENT: General X-ray: Exam(s) Completed: Lower Extremity X- Ray(s): Knee, AP / Lat / Tunne / Merchant Left and Wt. Bearing PERIPHERAL IV DATA: Not applicable SIGNED BY: RT Romina(R) March 20, 2023 2:23 PM documented in this encounterMercy Health08-21-2023 History of Present illness Narrative* Blake Wilcox MD - 03/20/2023 1:30 PM EDT Patient presents with: 6 Month Exam Derm Problem Pain HPI: Patient presents today for office visit for follow up. Derm problem: Some places with itching that needs to have checking. Pain in left knee and bilateral feet would like to discuss today. Has been following closely with [facility]. No chest pain or shortness of [...] tablet DISSOLVE 1 TABLET UNDER THE TONGUE NEEDEDFOR CHEST PAIN- MAY REPEAT EVERY 5 MINUTES [...] Take 325 mg by mouth once daily.) nwfvjpfu-obu-TE-lycopen-lutein (CENTRUM SILVER MEN) 300-600-300 mcg tab Take 1 tablet by mouth oncedaily. COMPOUNDED PRESCRIPTION [facility] Push Brace to be [...] SURGERY HX FRACTURE SURGERY HEMORRHOID SURGERY HX 2016Ouflrox-Qrckv-Zt [place] HERNIA REPAIR HX PAST SURGICAL HISTORY [...] past medical history, surgical history, family history andsocial history today. REVIEW OF SYSTEMS All other [...] thickened skin with some abrasions. Discussed not pickingit to get a better look. Head: Normocephalic, [...] warmth ASSESSMENT/PLAN: 1. Coronary artery disease involving timbi-sha shoshone heart without angina pectoris, unspecified vessel or lesion type - ICD9: 414.01, ICD10: I25.10 (primary diagnosis) - per cardiology. 2. Bilateral carotid artery stenosis - ICD9: 433.10, 433.30, ICD10: I65.23 - is up to date on testing. 3. Stress and adjustment reaction - ICD9: 309.89, ICD10: F43.29 - appears stable. 4. Mixed hyperlipidemia - ICD9: 272.2, ICD10: E78.2 - controlled. 5. NEO (obstructive sleep apnea) - ICD9: 327.23, ICD10: [...] not better in one to two weeks Blake Wilcox MD documented in this encounterMercy Health07-17-2023 Miscellaneous Notes* Telephone Encounter - America Jackson Ma - 02/13/2023 8:34 AM EDT Last office visit: 10/06/22 F/u scheduled: 03/20/23 America Jackson Ma documented in this encounterMercy Health05-15-2023 Miscellaneous Notes* Telephone Encounter - Kristina Eduardo Ma - 12/12/2022 2:45 PM EDT Patient has been identified by name and date of : Yes Requested Prescriptions Pending Prescriptions Disp Refills famotidine (PEPCID) 20 mg tablet 30 tablet 5 Sig: Take 1 tablet by mouth daily at bedtime. VI 10/06/22 NOV 03/20/23 RX INSTRUCTIONS: Patient aware RX will be sent to pharmacy. No need to notify patient. Kristina Eduardo Ma documented in this encounterMercy Health03-09-2023 Instructions* Patient Instructions* Blake Wilcox MD - 10/06/2022 11:37 AM EST Can use mucinex or coricidin HBP. documented in this encounterMercy Health03-09-2023 History of Present illness Narrative* Blake Wilcox MD - 10/06/2022 11:26 AM EST No chief complaint on file. HPI: Patient [...] tablet DISSOLVE 1 TABLET UNDER THE TONGUE NEEDEDFOR CHEST PAIN- MAY REPEAT EVERY 5 MINUTES [...] STOCKINGS 20-30 MM. DX: EDEMA, varicose veins rgvyjirp-cap-UC-lycopen-lutein (CENTRUM SILVER MEN) 300-600-300 mcg tab Take 1 tablet by mouth oncedaily. No current facility-administered medications for this visit. [...] SURGERY HX FRACTURE SURGERY HEMORRHOID SURGERY HX 2016Naunlbd-Joyrb-Lt [place] HERNIA REPAIR HX PAST SURGICAL HISTORY [...] past medical history, surgical history, family history andsocial history today. REVIEW OF SYSTEMS All other [...] 786.2, ICD10: R05.9 Check covid and flu. Blake Wilcox documented in this encounterMercy Health03-08-2023 Miscellaneous Notes* Telephone Encounter - Blake Wilcox MD - 10/05/2022 9:06 AM EST Needs seen documented in this encounterMercy Health02-20-2023 History of Present illness Narrative* Ramiro Palmer, RT(R) - 09/19/2022 6:00 PM EST Radiology Service Progress Note PATIENT NAME: Ketan Cotton DATE OF SERVICE: September 19, 2022 TIME: 6:11 PM PATIENT IDENTITY VERIFICATION COMPLETED USING TWO (2) IDENTIFIERS: Name and Date of confirmedby patient verbally. FALL SCREENING: Has the patient had 2 falls in the last year or 1 fall with injury or currently using an Ambulatory Assistive Device (Walker, Cane, Wheelchair, Crutches, etc.)? No PATIENT GENDER DATA: Male PATIENT RELEVANT IMPLANT DATA REVIEWED: Not Applicable RADIOLOGY DEPARTMENT: General X-ray: Exam(s) Completed: Upper Extremity X- Ray(s): Wrist, left PERIPHERAL IV DATA: Not applicable SIGNED BY: RT Romina(R) September 19, 2022 6:11 PM documented in this encounterMercy Health02-20-2023 Miscellaneous Notes* Addendum Note - Blake Wilcox MD - 09/19/2022 5:47 PM ESTAddended by: BLAKE WILCOX on: 09/19/2022 05:47 PM Modules accepted: Orders documented in this encounterMercy Health02-20-2023 History of Present illness Narrative* Blake Wilcox MD - 09/19/2022 5:09 PM EST Patient presents with: Follow Up HPI: Patient [...] for blood flow screening on 09/22/22 with [facility]. Cough went away with steroids. See previous. [...] start skiing. Has lost 16 lbs since NM. Has not been eating as much. Will [...] tablet DISSOLVE 1 TABLET UNDER THE TONGUE NEEDEDFOR CHEST PAIN- MAY REPEAT EVERY 5 MINUTES [...] STOCKINGS 20-30 MM. DX: EDEMA, varicose veins iotlwwfs-tns-GI-lycopen-lutein (CENTRUM SILVER MEN) 300-600-300 mcg tab Take 1 tablet by mouth oncedaily. No current facility-administered medications for this visit. [...] SURGERY HX FRACTURE SURGERY HEMORRHOID SURGERY HX 2016Uslqmuf-Klrsg-Sf [place] HERNIA REPAIR HX PAST SURGICAL HISTORY [...] past medical history, surgical history, family history andsocial history today. REVIEW OF SYSTEMS All other reviewed and negative other than HPI. HEALTH MAINTENANCE: Reviewed health maintenance issues today and recommended the following in detail. ADVANCE DIRECTIVE DISCUSSION Never done DEPRESSION ASSESSMENT due on 07/31/2022 VITALS: BP 106/76 Pulse 64 Ht 177.8 cm (5' 10) Wt 96.2 kg (212 lb) SpO2 96% [...] tenderness ASSESSMENT/PLAN: 1. Coronary artery disease involving timbi-sha shoshone heart without angina pectoris, unspecified vessel or lesion type - ICD9: 414.01, ICD10: I25.10 (primary diagnosis) - continue to follow with cardiology and cardiac rehab. 2. NOE (obstructive sleep apnea) - ICD9: 327.23, ICD10: G47.33 - getting cpap. 3. Generalized anxiety disorder - ICD9: 300.02, ICD10: F41.1 - stable 4. Gastroesophageal reflux disease with esophagitis, unspecified whether hemorrhage - ICD9: 530.11,ICD10: K21.00 - stable. 5. Mixed hyperlipidemia - ICD9: 272.2, ICD10: E78.2 - good control - Continue current medication. Blake Wilcox MD Has chronic left wrist pain and foot issues after surgery. Recommended to see his improvement nurse and ana paula jaimes. He is using voltaren gel. documented in this encounterMercy Health01-23-2023 Miscellaneous Notes* Telephone Encounter - Rylee Gibson LPN - 08/22/2022 3:19 PM EST Updated patient via [employer], does NOT need to stop Aspirin for procedure. * Telephone Encounter - Rylee Gibson LPN - 08/22/2022 2:47 PM EST Called patient and unable to leave message Voice mail is full, Patient does NOT need to stop Aspirin for procedure. * Telephone Encounter - Aliya Campo RN - 08/22/2022 2:08 PM EST Patient calling to cancel upcoming appointment with [...] appointment can be canceled. documented in this encounterMercy Health01-13-2023 Miscellaneous Notes* Telephone Encounter - Aliya Smart RN - 08/12/2022 8:36 AM EST Pt called and is notified of providers results and instructions. Pt voices understanding. He statesMichelle from Dr Bower put him on a Prednisone taper and he feels so much better. Aliya Smart RN * Telephone Encounter - Blake Wilcox MD - 08/11/2022 5:28 PM EST Pfts show possible mild asthma. If cough does not improve before next ov, may consider lung meds. documented in this encounterMercy Health01-12-2023 Miscellaneous Notes* Telephone Encounter - Blake Wilcox MD - 08/11/2022 8:46 AM EST Agree on sugars. The a1c will help to figure it out. Hard to say on pfts. They are not read yet. Wait and see what they show. * Telephone Encounter - Anel Morales RN - 08/11/2022 8:27 AM EST Patient's call and notified of results and [...] Please review and advise, Anel Morales RN * Telephone Encounter - Blake Wilcox MD - 08/11/2022 7:55 AM EST Labs are much better. Sugars are up at 116. Check a1c documented in this encounterMercy Health01-06-2023 History of Present illness Narrative* Moreno Whitten RT(R) - 08/05/2022 9:50 AM EST Radiology Service Progress Note PATIENT NAME: Ketan Cotton DATE OF SERVICE: August 05, 2022 TIME: 9:50 AM PATIENT IDENTITY VERIFICATION COMPLETED USING TWO (2) IDENTIFIERS: Name and Date of confirmedby patient verbally. FALL SCREENING: Has the patient had 2 falls in the last year or 1 fall with injury or currently using an Ambulatory Assistive Device (Walker, Cane, Wheelchair, Crutches, etc.)? No PATIENT GENDER DATA: Male PATIENT RELEVANT IMPLANT DATA REVIEWED: Yes RADIOLOGY DEPARTMENT: General X-ray: Exam(s) Completed: Upper Extremity X- Ray(s): Wrist, left PERIPHERAL IV DATA: Not applicable SIGNED BY: RT Ayesha(R) August 05, 2022 9:50 AM documented in this encounterMercy Health01-06-2023 Instructions* Patient Instructions* Blake Wilcox MD - 08/05/2022 9:05 AM EST Take lisinopril at bedtime and call or my chart bp list in one week. documented in this encounterMercy Health01-06-2023 History of Present illness Narrative* Blake Wilcox MD - 08/05/2022 8:43 AM EST Patient presents with: Establish Care HPI: Patient presents today for office visit for follow up. Previous patient of Dr. Franco. Wis[place] establish care. See Dr. Franco's appt. Patient admitted to [facility] from 07/16 to 07/19 for NSTEMI due [...] and stent. 2D echo showed EF 55% withmild TR. Added Brillinta and low dose Lisinopril. [...] start skiing. Has lost 16 lbs since NM. Has not been eating as much. Will [...] tablet DISSOLVE 1 TABLET UNDER THE TONGUE NEEDEDFOR CHEST PAIN- MAY REPEAT EVERY 5 MINUTES [...] STOCKINGS 20-30 MM. DX: EDEMA, varicose veins vhfguqcp-fum-XB-lycopen-lutein (CENTRUM SILVER MEN) 300-600-300 mcg tab Take 1 tablet by mouth oncedaily. No current facility-administered medications for this visit. [...] SURGERY HX FRACTURE SURGERY HEMORRHOID SURGERY HX 2016Awtvele-Dahgx-Rf [place] HERNIA REPAIR HX PAST SURGICAL HISTORY [...] past medical history, surgical history, family history andsocial history today. REVIEW OF SYSTEMS All other reviewed and negative other than HPI. HEALTH MAINTENANCE: Reviewed health maintenance issues today and recommended the following in detail. ADVANCE DIRECTIVE DISCUSSION Never done DEPRESSION ASSESSMENT due on 07/31/2022 VITALS: BP 106/76 Pulse 73 Ht 177.8 cm (5' 10) Wt 93 kg (205 lb) SpO2 97% [...] medication with the patient. Advised them to callif any side effects or questions. - SPIROMETRY WITH DILATOR IF OBSTRUCTED - LUNG DIFFUSION CAPACITY (DLCO) - LUNG VOLUMES 5. Rectal lesion - ICD9: 569.49, ICD10: K62.9 - CONSULT TO GENERAL SURGERY Blake Wilcox documented in this encounterMercy Health12-31-2022 History of Present illness Narrative* Clarisse Reynolds APRN.[facility] - 07/30/2022 12:50 PM EST Subjective Cough Pertinent negatives include no chills, no sore throat, no myalgias and no shortness of breath. Ketan Cotton is a 66 year old male who presents with a cough that he has had for ages. He states ithas been worse in the past few days. He had NM on 07/16 and stent placement on 07/19. His underwriting clerk has advised him the only medications he [...] SURGERY HX FRACTURE SURGERY HEMORRHOID SURGERY HX 2016Zquunbn-Iasgk-Jf [place] HERNIA REPAIR HX PAST SURGICAL HISTORY OF 06/2002 left wrist and left elbow PAST SURGICAL HISTORY OF 05/2009 Varicose vein stripping PAST SURGICAL HISTORY OF 02/22/2019 left foot fracture/dislocation repair. Dr. Krik PAST SURGICAL HISTORY OF Left 07/2019 Removal of screw from left ankle with placement of Tightrope implant. RPR UMBILICAL HRNA 5 YRS/> REDUCIBLE 04/03/2009 SKIN BIOPSY HX TONSILLECTOMY HX TONSILLECTOMY PRIMARY/SECONDARY <AGE 12 Tonsillectomy ALLERGIES Baycol [Other], Environmental Allergies [Other], Erythromycin, Lipitor [Atorvastatin Calcium], Niaspan [Niacin], and Penicillins MEDICATIONS nitroglycerin sublingual (NITROQUICK) 0.4 mg SL tablet DISSOLVE 1 TABLET UNDER THE TONGUE NEEDEDFOR CHEST PAIN- MAY REPEAT EVERY 5 MINUTES [...] STOCKINGS 20-30 MM. DX: EDEMA, varicose veins ixdvxehm-har-MH-lycopen-lutein (CENTRUM SILVER MEN) 300-600-300 mcg tab Take 1 tablet by mouth oncedaily. FAMILY HISTORY Problem Relation Age of Onset [...] cough. Clarisse Reynolds APRN.CNP documented in this encounterMercy Health12-31-2022 Instructions* Patient Instructions* Clarisse Reynolds APRN.CNP - 07/30/2022 12:49 PM EST ASSESSMENT/PLAN: 1. Chronic cough - ICD9: 786.2, ICD10: R05.3 - recommend using flonase nasal spray and benadryl which may provide symptomatic relief for your chronic cough. Clarisse Reynolds APRN.CNP documented in this encounterMercy Health12-28-2022 History of Present illness Narrative* Yousif Franco MD - 07/27/2022 9:41 AM EST Chief Complaint No chief complaint on file. HPI Ketan Cotton is a 66 year old male who presents here today for Hospital Discharge Follow up.. Patient admitted to [facility] from 07/16 to 07/19 for NSTEMI due [...] and stent. 2D echo showed EF 55% withmild TR. Added Brillinta and low dose Lisinopril. [...] in general. Did have some WHEAT while helpingput on boots for grandchildren. Took Nitro x [...] of lisinopril instead of 2.5. Rx written for5 mg daily. Carries nitro with him. Denies [...] SURGERY HX FRACTURE SURGERY HEMORRHOID SURGERY HX 2016Pvmhhia-Vxyvu-Fh [place] HERNIA REPAIR HX PAST SURGICAL HISTORY [...] STOCKINGS 20-30 MM. DX: EDEMA, varicose veins xcoixpdh-lmx-FX-lycopen-lutein (CENTRUM SILVER MEN) 300-600-300 mcg tab Take 1 tablet by mouth oncedaily. No current facility-administered medications on file prior [...] his chest pain with exertion. Continue ASA, Brillinta,lisinopril 5 mg, metoprolol succinate, and statin. EKG [...] which included preparing to see the patient, [id number] patient care, completing clinical documentation, obtaining and/or reviewing separately obtained history, performing a medically appropriate examination, counseling and educating the pat ient/family/caregiver, ordering medications, tests, or procedures, communicating with other HCPs (not separately reported), and independently interpreting results (not separately reported). Yousif Franco MD documented in this encounterMercy Health12-19-2022 Evaluation note* Diagnosis Onset Date Resolution Status Atherosclerotic heart diseas e of [place] coronary artery without angina pectoris acute Stented coronary artery July 18, 2022 acute Elevated blood pressure reading resolved Non-ST elevation NM (NSTEMI) resolved Atherosclerotic heart diseas e of [place] coronary artery without angina pectoris acute Cough acute NOE (obstructive sleep apnea) acute Stented coronary artery July 18, 2022 acute Non-ST elevation NM (NSTEMI) resolved [facility] Work Phone: 1(431) 129-188412-19-2022 Evaluation note* Diagnosis Onset Date Resolution Status Atherosclerotic heart diseas e of [place] coronary artery without angina pectoris acute Stented coronary artery July 18, 2022 acute Elevated blood pressure reading resolved Non-ST elevation NM (NSTEMI) resolved Atherosclerotic heart diseas e of [place] coronary artery without angina pectoris acute Cough acute NOE (obstructive sleep apnea) acute Stented coronary artery July 18, 2022 acute Non-ST elevation NM (NSTEMI) resolved NOE (obstructive sleep apnea) acute Shortness of breath acute Hyperlipidemia acute NOE (obstructive sleep apnea) acute Stented coronary artery July 18, 2022 acute [facility] Work Phone: 1(192) 446-258412-19-2022 Evaluation note* Diagnosis Onset Date Resolution Status Atherosclerotic heart diseas e of [place] coronary artery without angina pectoris acute Cough acute NOE (obstructive sleep apnea) acute Stented coronary artery July 18, 2022 acute Non-ST elevation NM (NSTEMI) resolved NOE (obstructive sleep apnea) acute Shortness of breath acute Hyperlipidemia acute NOE (obstructive sleep apnea) acute Stented coronary artery July 18, 2022 [facility] Work Phone: 1(962) 612-232810-20-2022 History of Present illness Narrative* Christopher James MD - 05/19/2022 12:51 PM EDT HISTORY AND PHYSICAL Ketan Cotton 1955 REFERRING PHYSICIAN: Josefina Stokes APRN.C* CHIEF [...] SURGERY HX FRACTURE SURGERY HEMORRHOID SURGERY HX [id number]-Od Guttman HERNIA REPAIR HX PAST SURGICAL HISTORY [...] STOCKINGS 20-30 MM. DX: EDEMA, varicose veins pwpustyh-kwh-YM-lycopen-lutein (CENTRUM SILVER MEN) 300-600-300 mcg tab Take 1 tablet by mouth oncedaily. No current facility-administered medications for this visit. [...] entered by the nurse and reviewed by in Nursing Notes: Kailyn Akbar RN 05/03/2022 2:18 [...] failure, other cardiac issues, denies claudication, denies coldfeet, denies peripheral arterial stent. Respiratory: The patient [...] C (97.9 F), height 177.8 cm (5' 10), weight 98.7 kg (217 lb 9.6 oz), SpO2 98 %. HEENT: Normal cephalic, ataumatic, pupils are equally round, sclera are anicteric, mucous membranesare moist, oropharynx is clear. Neck has no [...] the colonoscopy report and have reviewed the images.I have offered the patient repeating his colonoscopy but at this time he is going to opt not to do a nything. I do not think this is a long thing to do. He has significant hemorrhoidal disease. He hada good colonoscopy. He had a tubular adenoma of the descending colon which was completely excised and at this point is waiting for his 5-year follow-up endoscopy which for all intents and purposes isprobably the appropriate thing to do. Diagnoses: (R19.5) Positive fecal occult blood test My findings have been communicated to Dr. Stokes via shared medical record. This note will be forwarded to Dr. Yousif Franco MD. Return to Clinic: The patient is instructed to follow-up with me in 4 year. Christopher James III, MD documented in this encounterMercy Health10-04-2022 Nurse Note* Kailyn Akbar RN - 05/03/2022 2:14 PM EDT REVIEW OF SYSTEMS: General: The patient denies [...] failure, other cardiac issues, denies claudication, denies coldfeet, denies peripheral arterial stent. Respiratory: The patient [...] 2020 Kailyn Akbar RN documented in this encounterMercy Health10-03-2022 History of Present illness Narrative* Josefina Stokes, KING.CHIEF OPERATOR HYDROFORMER - 05/02/2022 8:50 AM EDT 05/02/2022 Patient presents with: Discussion: Results of IFOBT SUBJECTIVE: This is a 66 year old that is here today for Above Complaints. [facility] came for a home health care visit. [...] STOCKINGS 20-30 MM. DX: EDEMA, varicose veins swzhwjnj-etc-OV-lycopen-lutein (CENTRUM SILVER MEN) 300-600-300 mcg tab Take 1 tablet by mouth oncedaily. No current facility-administered medications for this visit. [...] Z23 - PNEUMOCOCCAL VACCINE (PREVNAR 20) - PFIZER-BIONTECH COVID-19 BIVALENT BOOSTER VACCINE, AGE 12+ YR - INFLUENZA SEASONAL QUADRIVALENT HIGH DOSE AGE 65+ Josefina Stokes APRN.CNP Prescription instructions reviewed with [...] which included preparing to see the patient, [id number]-[id number] patient care, completing clinical documentation, obtaining and/or reviewing separately obtained history, performing a medically appropriate examination, counseling and educating the pat ient/family/caregiver, and ordering medications, tests, or procedures. documented in this encounterMercy Health09-28-2022 Miscellaneous Notes* Telephone Encounter - Josefina Stokes APRN.CNP - 04/27/2022 1:12 PM EDT Reviewed. Will discuss at appointment. Josefina Stokes APRN.CNP * Telephone Encounter - Cinthya Mireles LPN - 04/27/2022 12:57 PM EDT Patient telephoned and made aware of message below. Patient wondering if an external hemorrhoid andinternal hemorrhoid could cause this as well? Patient [...] the hemorrhoid questions then. Cinthya Mireles LPN * Telephone Encounter - Josefina Stokes APRN.CNP - 04/27/2022 12:44 PM EDT Please let patient know I have received [...] these. Josefina Stokes APRN.CNP documented in this encounterMercy Health07-21-2022 Miscellaneous Notes* Telephone Encounter - Lorie Mckinney LPN - 02/17/2022 10:32 AM EDT rec'd fax approval from [employer] for testosterone cypionate 200mg Vial. approved from 01/17/22 to 02/16/2023. documented in this encounterMercy Health07-19-2022 Miscellaneous Notes* Telephone Encounter - Josefina Stokes APRN.CNP - 02/15/2022 2:00 PM EDT Prescription for testosterone sent to [facility] Stokes APRN.CNP PDMP website checked and validated. All prescriptions have been APPROPRIATELY filled. No suspiciousactivity was identified. 02/15/2022 by Josefina Stokes APRN.CNP * Telephone Encounter - Lillian Jenkins Ma - 02/15/2022 1:54 PM EDT Spoke to patient who advised mail away will fill but needs rx sent. I can not see if PA is needed till rx sent and ran with insurance. Please send to [facility]. Lillian Jenkins Ma * Telephone Encounter - Cinthya Mireles LPN - 02/15/2022 1:45 PM EDT MC message sent from patient regarding Testosterone Rx. Good afternoon Rosalva Rocha will fill the testosterone prescription but requires a call to [phone] for karen authorization. Then call [phone] to prescribe the testosterone. Thank you. Have a good day! Timmy Cotton documented in this encounterMercy Health07-19-2022 Miscellaneous Notes* Telephone Encounter - Cinthya Mireles LPN - 02/15/2022 1:51 PM EDT New TE opened. 02/15/22 * Telephone Encounter - Cinthya Mireles LPN - 02/11/2022 1:19 PM EDT Patient called, message below given. [facility] will call [facility] and let us know. Cinthya Mireles LPN * Telephone Encounter - Josefina Stokes APRN.CNP - 02/11/2022 1:06 PM EDT I am not sure mail away will fill this medication. I would have him call them and ask if they fill this medication. Thanks, Josefina Stokes APRN.CNP * Telephone Encounter - Mignon Munoz LPN - 02/11/2022 12:29 PM EDT He wants to know if he will be put back on Testerone and if so would like it sent to [facility] for 3 month at a time. Please advise pt. Mignon Munoz LPN * Telephone Encounter - Yousif Franco MD - 02/11/2022 11:36 AM EDT What questions? * Telephone Encounter - Mignon Munoz LPN - 02/11/2022 11:15 AM EDT Spoke with pt and information listed below given. Pt verbalizes understanding. Pt has questions. f Please advise pt. Mignon Munoz LPN * Telephone Encounter - Cinthya Mireles LPN - 02/11/2022 10:33 AM EDT Message left on patients secure VM of results. Instructed to call back if has any questions. Cinthya Mireles LPN * Telephone Encounter - Nayla Peoples LPN - 02/10/2022 4:47 PM EDT ----- Message from Yousif Franco MD sent at 02/10/2022 4:29 PM EDT ----- Please let patient know his iron levels and blood counts are normal. Prostate cancer screening is negative. documented in this encounterMercy Health07-13-2022 Miscellaneous Notes* Telephone Encounter - Josefina Stokes APRN.CNP - 02/09/2022 11:32 AM EDT Reviewed. Will await PSA level results. Josefina Stokes APRN.CNP * Telephone Encounter - Cinthya Mireles LPN - 02/08/2022 4:46 PM EDT Patient notified of results, verbalizes understanding of instructions. Will be in tomorrow to have PSA drawn. Stated he gave himself the injections the last time after they showed him once how to do it. Cinthya Mireles LPN * Telephone Encounter - Josefina Stokes APRN.CNP - 02/08/2022 1:38 PM EDT Please call patient and let him know his testosterone is on lower end. We can restart testosterone.We need to get a PSA level prior to starting. Please ask him if he was giving his own injections orif he came into office for them. Stool negative for blood. Improved anemia and hemoglobin. Continueiron supplement. Improved LDL ( bad cholesterol) and total cholesterol. Triglycerides increased some- work on eating lower carbohydrate diet and getting at least 150 minutes of exercise per week. Continue current cholesterol medication. Will need to recheck testosterone level in 2-3 months after hestart injection. Please schedule appointment to get prostate level checked if wanting to do testosterone injections. Thanks, Josefina Stokes APRN.CNP documented in this encounterMercy Health07-12-2022 Miscellaneous Notes* Telephone Encounter - Josefina Stokes APRN.CNP - 02/08/2022 9:06 AM EDT Reviewed. Josefina Stokes APRN.CNP * Telephone Encounter - Nayla Peoples LPN - 02/08/2022 8:58 AM EDT Lab contacted and they stated PSA's can't be added on. * Telephone Encounter - Nayla Peoples LPN - 02/08/2022 8:58 AM EDT ----- Message from Josefina Stokes APRN.CNP sent at 02/08/2022 8:31 AM EDT ----- See if lab can add on a PSA to recent blood work. Thanks, Josefina Stokes APRN.CNP documented in this encounterMercy Health07-11-2022 History of Present illness Narrative* Josefina Stokes APRN.CNP - 02/07/2022 9:01 AM EDT 02/07/2022 Patient presents with: 6 Month Exam SUBJECTIVE: This is a 66 year old that is here today for Above Complaints. Since his last visit hasbeen in good health without ER visits or [...] marital difficulties. Feels down. Lost job. Trying self- employment. He reports is domineering and controlling. Make him feel disrespected and devalued. Contemplating divorce.Denies physical harm or feeling unsafe at home. [...] STOCKINGS 20-30 MM. DX: EDEMA, varicose veins ywfgitew-zik-MY-lycopen-lutein (CENTRUM SILVER MEN) 300-600-300 mcg tab Take 1 tablet by mouth oncedaily. Diclofenac Sodium (VOLTAREN) 1 % gel Apply [...] No skin discoloration and Mild edema non-pitting toleft lower leg- patient reports this is chronic [...] Abs Lymph 1.00 - 4.00 k/uL 1.60 [place]% % 13.5 Abs [place] <0.87 k/uL 0.80 E[place]% % 2.9 Abs [...] agreeable to treatment plan. documented in this encounterMercy Health06-27-2022 Miscellaneous Notes* Telephone Encounter - Cinthya Mireles LPN - 01/24/2022 11:55 AM EDT Patient made aware. * Telephone Encounter - Josefina Stokes APRN.CNP - 01/24/2022 10:[address] Franco is out this week so I will discuss with him next week when he comes back. Please let him know. Josefina Stokes APRN.CNP * Telephone Encounter - Cinthya Mireles LPN - 01/24/2022 10:10 AM EDT Stopped it for a while due to pharmacy always giving him issues with refills. Patient stated he hasn't taken for about 6-8 months. Cinthya Mireles LPN * Telephone Encounter - Josefina Stokes APRN.CNP - 01/24/2022 9:56 AM EDT Has patient been taking this consistently or did he stop for awhile? Thanks, Josefina Stokes APRN.CNP * Telephone Encounter - Capri Rizo - 01/24/2022 9:26 AM EDT Ketan Cotton is calling Yousif Franco MD today he is requesting a prescription for medication, not on his current list: testosterone cypionate (DEPO-TESTOSTERONE) 200 mg/mL injection (Discontinued) 6 mL 0 08/12/2019 08/06/2021 Sig: inject 1ml intramuscularly every 4 weeks Class: Call Rx Reason for Discontinue: Course of therapy completed Order: [id number] [facility] send to [facility]. Please notify patient once sent. Patient has been identified by name and birthdate. Duration of symptoms: N/A Person calling: self Call patient at: on cell [phone] (home) [phone] (cell) Was an appointment scheduled: No Closing statement: Results or non-symptom based questions: Thank you for calling [facility], your call will be returned within the next business day. Capri Mccain Pss documented in this encounterMercy Health04-18-2022 History of Present illness Narrative* Johanny Holly PA-C - 11/15/2021 12:06 PM EDT 11/15/2021 Patient presents with: Ear Problem: qtip [...] pleuritic chest pain. Patient did travel to [place] recently. He always has intermittent leg swelling in left leg, none currently. Improves with elevation when it does occur-for years per patient. No calf pain. PAST [...] STOCKINGS 20-30 MM. DX: EDEMA, varicose veins ecjkujte-fvc-EE-lycopen-lutein (CENTRUM SILVER MEN) 300-600-300 mcg tab Take 1 tablet by mouth oncedaily. Diclofenac Sodium (VOLTAREN) 1 % gel Apply [...] canals clear, no Foreign body. TMs normal ERIK NOSE/SINUS Nares normal. Septum midline. Mucosa normal. [...] pain, SOB, pleuritic chest pain-low suspicion for DVT/PE-Reviewedred flags and when to seek care sooner. [...] plan. Johanny Holly PA-C documented in this encounterMercy Health01-07-2022 History of Present illness Narrative* Ramiro Palmer RT(R) - 08/06/2021 9:30 AM EST Radiology Service Progress Note PATIENT NAME: Ketan Cotton DATE OF SERVICE: August 06, 2021 TIME: 9:27 AM PATIENT IDENTITY VERIFICATION COMPLETED USING TWO (2) IDENTIFIERS: Name and Date of confirmedby patient verbally. FALL SCREENING: Has the patient had 2 falls in the last year or 1 fall with injury or currently using an Ambulatory Assistive Device (Walker, Cane, Wheelchair, Crutches, etc.)? No PATIENT GENDER DATA: Male PATIENT RELEVANT IMPLANT DATA REVIEWED: Not Applicable RADIOLOGY DEPARTMENT: General X-ray: Exam(s) Completed: Chest X-Ray PERIPHERAL IV DATA: Not applicable SIGNED BY: RT Romina(R) August 06, 2021 9:27 AM documented in [place] encounterChristopher [place] [id number] History of Past illness Narrative* Problem Noted Date Resolved Date Neck pain 03/21/2018 09/19/2022 Bilateral carotid artery stenosis 10/28/2015 03/03/2016 Overview: [place] 09/2015: 20-40%on Rt and 0-19% on Lt. Dizziness 10/19/2015 09/19/2022 Other social stressor 10/09/2015 09/19/2022 Screening for colon cancer 11/05/201009/19 documented as of this encounter (statuses as of 09/20/2022) [place] [address]2018 History of Past illness Narrative* Problem Noted Date Resolved Date Neck pain 03/21/2018 09/19/2022 Dizziness 10/19/2015 09/19/2022 Other social stressor 10/09/2015 09/19/2022 Screening for colon cancer 11/05/201009/19 documented as of this encounter (statuses as of 10/05/2022) [place] [address]22-2018 History of Past illness Narrative* Problem Noted Date Resolved Date Neck pain 03/21/2018 09/19/2022 Dizziness 10/19/2015 09/19/2022 Other social stressor 10/09/2015 09/19/2022 Screening for colon cancer 11/05/201009/19 documented as of this encounter (statuses as of 10/06/2022) [place] [address]-2018 History of Past illness Narrative* Problem Noted Date Resolved Date Neck pain 03/21/2018 09/19/2022 Dizziness 10/19/2015 09/19/2022 Other social stressor 10/09/2015 09/19/2022 Screening for colon cancer 11/05/201009/19 documented as of this encounter (statuses as of 12/13/2022) [address]22-2018 History of Past illness Narrative* Problem Noted Date Diagnosed Date Resolved Date Neck pain 03/21/2018 09/19/2022 Dizziness 10/19/2015 09/19/2022 Other social stressor 10/09/20152022 Screening for colon cancer 11/05/2010 0 09/19/2022 documented as of this encounter (statuses as of 02/13/2023) [address]22-2018 History of Past illness Narrative* Problem Noted Date Diagnosed Date Resolved Date Neck pain 03/21/2018 09/19/2022 Dizziness 10/19/2015 09/19/2022 Other social stressor 10/09/20152022 Screening for colon cancer 11/05/2010 0 09/19/2022 documented as of this encounter (statuses as of 02/27/2023) [facility] N[facility]* Problem Noted Date Diagnosed Date Resolved Date Neck pain 03/21/2018 09/19/2022 Dizziness 10/19/2015 09/19/2022 Other social stressor 10/09/20152022 Screening for colon cancer 11/05/2010 0 09/19/2022 documented as of this encounter (statuses as of 03/21/2023) [facility] Narrative* Problem Noted Date Diagnosed Date Resolved Date Neck pain 03/21/2018 09/19/2022 Dizziness 10/19/2015 09/19/2022 Other social stressor 10/09/20152022 Screening for colon cancer 11/05/2010 0 09/19/2022 documented as of this encounter (statuses as of 03/24/2023) [facility] Narrative* Problem Noted Date Diagnosed Date Resolved Date Neck pain 03/21/2018 09/19/2022 Dizziness 10/19/2015 09/19/2022 Other social stressor 10/09/20152022 Screening for colon cancer 11/05/2010 0 09/19/2022 documented as of this encounter (statuses as of 06/04/2023) [facility] Narrative* Problem Noted Date Diagnosed Date Resolved Date Neck pain 03/21/2018 09/19/2022 Dizziness 10/19/2015 09/19/2022 Other social stressor 10/09/20152022 Screening for colon cancer 11/05/2010 0 09/19/2022 documented as of this encounter (statuses as of 07/03/2023) [facility] Narrative* Problem Noted Date Diagnosed Date Resolved Date Neck pain 03/21/2018 09/19/2022 Dizziness 10/19/2015 09/19/2022 Other social stressor 10/09/20152022 Screening for colon cancer 11/05/2010 0 09/19/2022 documented as of this encounter (statuses as of 07/06/2023) [facility] Narrative* Problem Noted Date Diagnosed Date Resolved Date Neck pain 03/21/2018 09/19/2022 Dizziness 10/19/2015 09/19/2022 Other social stressor 10/09/20152022 Screening for colon cancer 11/05/2010 0 09/19/2022 documented as of this encounter (statuses as of 09/20/2023) [facility] Narrative* Problem Noted Date Diagnosed Date Resolved Date Neck pain 03/21/2018 09/19/2022 Dizziness 10/19/2015 09/19/2022 Other social stressor 10/09/20152022 Screening for colon cancer 11/05/2010 0 09/19/2022 documented as of this encounter (statuses as of 09/22/2023) [facility] Narrative* Problem Noted Date Diagnosed Date Resolved Date Neck pain 03/21/2018 09/19/2022 Dizziness 10/19/2015 09/19/2022 Other social stressor 10/09/20152022 Screening for colon cancer 11/05/2010 0 09/19/2022 documented as of this encounter (statuses as of 11/09/2023) [facility] Narrative* Problem Noted Date Resolved Date Bilateral carotid artery stenosis 10/28/2015 03/03/2016 Overview: [place] 09/2015: 20-40%on Rt and 0-19% on Lt. documented as of this encounter (statuses as of 11/15/2021) [facility] Narrative* Problem Noted Date Resolved Date Bilateral carotid artery stenosis 10/28/2015 03/03/2016 Overview: [place] 09/2015: 20-40%on Rt and 0-19% on Lt. documented as of this encounter (statuses as of 02/04/2022) [place] [address]30-2016 History of Past illness Narrative* Problem Noted Date Resolved Date Bilateral carotid artery stenosis 10/28/2015 03/03/2016 Overview: [place] 09/2015: 20-40%on Rt and 0-19% on Lt. documented as of this encounter (statuses as of 02/07/2022) [address]30-2016 History of Past illness Narrative* Problem Noted Date Resolved Date Bilateral carotid artery stenosis 10/28/2015 03/03/2016 Overview: [place] 09/2015: 20-40%on Rt and 0-19% on Lt. documented as of this encounter (statuses as of 02/08/2022) [address]30-2016 History of Past illness Narrative* Problem Noted Date Resolved Date Bilateral carotid artery stenosis 10/28/2015 03/03/2016 Overview: [place] 09/2015: 20-40%on Rt and 0-19% on Lt. documented as of this encounter (statuses as of 02/09/2022) [address]30-2016 History of Past illness Narrative* Problem Noted Date Resolved Date Bilateral carotid artery stenosis 10/28/2015 03/03/2016 Overview: [place] 09/2015: 20-40%on Rt and 0-19% on Lt. documented as of this encounter (statuses as of 02/11/2022) [address]30-2016 History of Past illness Narrative* Problem Noted Date Resolved Date Bilateral carotid artery stenosis 10/28/2015 03/03/2016 Overview: [place] 09/2015: 20-40%on Rt and 0-19% on Lt. documented as of this encounter (statuses as of 02/15/2022) [address]30-2016 History of Past illness Narrative* Problem Noted Date Resolved Date Bilateral carotid artery stenosis 10/28/2015 03/03/2016 Overview: [place] 09/2015: 20-40%on Rt and 0-19% on Lt. documented as of this encounter (statuses as of 02/15/2022) [place] [address] History of Past illness Narrative* Problem Noted Date Resolved Date Bilateral carotid artery stenosis 10/28/2015 03/03/2016 Overview: [place] 09/2015: 20-40%on Rt and 0-19% on Lt. documented as of this encounter (statuses as of 02/17/2022) [address]30-2016 History of Past illness Narrative* Problem Noted Date Resolved Date Bilateral carotid artery stenosis 10/28/2015 03/03/2016 Overview: [place] 09/2015: 20-40%on Rt and 0-19% on Lt. documented as of this encounter (statuses as of 04/05/2022) [address]30-2016 History of Past illness Narrative* Problem Noted Date Resolved Date Bilateral carotid artery stenosis 10/28/2015 03/03/2016 Overview: [place] 09/2015: 20-40%on Rt and 0-19% on Lt. documented as of this encounter (statuses as of 05/02/2022) [address]30-2016 History of Past illness Narrative* Problem Noted Date Resolved Date Bilateral carotid artery stenosis 10/28/2015 03/03/2016 Overview: [place] 09/2015: 20-40%on Rt and 0-19% on Lt. documented as of this encounter (statuses as of 05/02/2022) [address]30-2016 History of Past illness Narrative* Problem Noted Date Resolved Date Bilateral carotid artery stenosis 10/28/2015 03/03/2016 Overview: [place] 09/2015: 20-40%on Rt and 0-19% on Lt. documented as of this encounter (statuses as of 05/19/2022) [address]30-2016 History of Past illness Narrative* Problem Noted Date Resolved Date Bilateral carotid artery stenosis 10/28/2015 03/03/2016 Overview: [place] 09/2015: 20-40%on Rt and 0-19% on Lt. documented as of this encounter (statuses as of 08/02/2022) [address]30-2016 History of Past illness Narrative* Problem Noted Date Resolved Date Bilateral carotid artery stenosis 10/28/2015 03/03/2016 Overview: [place] 09/2015: 20-40%on Rt and 0-19% on Lt. documented as of this encounter (statuses as of 08/04/2022) [facility] Narrative* Problem Noted Date Resolved Date Bilateral carotid artery stenosis 10/28/2015 03/03/2016 Overview: [place] 09/2015: 20-40%on Rt and 0-19% on Lt. documented as of this encounter (statuses as of 08/05/2022) [address]30-2016 History of Past illness Narrative* Problem Noted Date Resolved Date Bilateral carotid artery stenosis 10/28/2015 03/03/2016 Overview: [place] 09/2015: 20-40%on Rt and 0-19% on Lt. documented as of this encounter (statuses as of 08/08/2022) [address]-2016 History of Past illness Narrative* Problem Noted Date Resolved Date Bilateral carotid artery stenosis 10/28/2015 03/03/2016 Overview: [place] 09/2015: 20-40%on Rt and 0-19% on Lt. documented as of this encounter (statuses as of 08/10/2022) [address]30-2016 History of Past illness Narrative* Problem Noted Date Resolved Date Bilateral carotid artery stenosis 10/28/2015 03/03/2016 Overview: [place] 09/2015: 20-40%on Rt and 0-19% on Lt. documented as of this encounter (statuses as of 08/11/2022) [address]30-2016 History of Past illness Narrative* Problem Noted Date Resolved Date Bilateral carotid artery stenosis 10/28/2015 03/03/2016 Overview: [place] 09/2015: 20-40%on Rt and 0-19% on Lt. documented as of this encounter (statuses as of 08/12/2022) [address]30-2016 History of Past illness Narrative* Problem Noted Date Resolved Date Bilateral carotid artery stenosis 10/28/2015 03/03/2016 Overview: 09/2015: 20-40%on Rt and 0-19% on Lt. documented as of this encounter (statuses as of 08/23/2022) [facility] note* Diagnosis Foreign body of right ear, initial encounter- Primary URI, acute Acute upper respiratory infections of unspecified site documented in this encounter [facility] noteNo assessment information availableWSelect [facility] Work Phone: Evaluation note* Diagnosis Hypogonadism in male- Primary Mixed hyperlipidemia [facility] Diagnosis Mixed hyperlipidemia- Primary Iron deficiency anemia, unspecified iron deficiency anemia type Nocturia Hypogonadism in male Gastroesophageal reflux disease without esophagitis Esophageal reflux Marital problems Counseling for marital and partner problems, unspecified [facility]* Diagnosis Screening for prostate cancer- Primary Special screening for malignant neoplasm of prostate [facility]* Diagnosis Hypogonadism in male [facility]* Diagnosis Positive fecal occult blood test- Primary Nonspecific abnormal finding in stool contents Encounter for immunization Need for other specified prophylactic vaccination against single bacterial disease [facility]* Diagnosis Positive fecal occult blood test Nonspecific abnormal finding in stool contents documented in this encounter [facility] note* Diagnosis Onset Date Resolution Status Elevated blood pressure reading acute Non-ST elevation NM (NSTEMI) acute Chest pain [facility] Work Phone: evaluation note* Diagnosis NSTEMI (non-ST elevated myocardial infarction) (HCC)- Primary Acute myocardial infarction, subendocardial infarction, episode of care unspecified Chest pain due to myocardial ischemia, unspecified ischemic chest pain type WHEAT (dyspnea on exertion) Other dyspnea and respiratory abnormality Eczema, unspecified type [facility]* Diagnosis Chronic cough- Primary Cough documented in this encounter [facility] note* Diagnosis Mixed hyperlipidemia- Primary NSTEMI (non-ST elevated myocardial infarction) (HCC) Acute myocardial infarction, subendocardial infarction, episode of care unspecified Left wrist pain Pain in joint, forearm Cough, unspecified type Rectal lesion Other specified disorder of rectum and anus [facility]* Diagnosis Nocturia [facility]* Diagnosis Nocturia [facility]* Diagnosis Cough, unspecified type [facility] Diagnosis Hyperglycemia- Primary Other abnormal glucose [facility]* Diagnosis Coronary artery disease involving [place] heart without angina pectoris, unspecified vessel or lesion type- Primary NOE (obstructive sleep apnea) Obstructive sleep apnea (adult) (pediatric) Generalized anxiety disorder Gastroesophageal reflux disease with esophagitis, unspecified whether hemorrhage Mixed hyperlipidemia Left wrist pain Pain in joint, forearm [facility]* Diagnosis URI, acute- Primary Acute upper respiratory infections of unspecified site Cough, unspecified type [facility]* Diagnosis Onset Date Resolution Status Atherosclerotic heart diseas e of [place] coronary artery without angina pectoris acute NOE (obstructive sleep apnea) acute Cough acute NOE (obstructive sleep apnea) acute Atherosclerotic heart diseas e of [place] coronary artery without angina pectoris acute Elevated glucose acute Fatigue acute Hyperlipidemia acute NOE (obstructive sleep apnea) acute Shortness of breath acute [facility] Work Phone: Evaluation note* Diagnosis Coronary artery disease involving [place] heart without angina pectoris, unspecified vessel or [...] to unspecified cause [facility]* Diagnosis Osteoarthritis of knee, unspecified laterality, unspecified osteoarthritis type- Primary [facility]* Diagnosis Encounter for immunization- Primary Need for other specified prophylactic vaccination against single bacterial disease [facility]* Diagnosis Onset Date Resolution Status NOE (obstructive sleep apnea) acute [facility] Work Phone: Evaluation note* Diagnosis Acute COVID-19- Primary Coronary artery disease involving [place] heart without angina pectoris, unspecified vessel or lesion type [facility]* Diagnosis Compression deformity of vertebra- Primary Other acquired deformity of back or spine Closed fracture of scapula with routine healing, unspecified laterality, unspecified part of scapula, subsequent encounter Closed head injury, subsequent encounter [facility]* Diagnosis Gastroesophageal reflux disease without esophagitis Esophageal reflux [facility]* Diagnosis Coronary artery disease involving [place] heart without angina pectoris, unspecified vessel or lesion type- Primary Encounter for immunization Need for other specified prophylactic vaccination against single bacterial disease NOE (obstructive sleep apnea) Obstructive sleep apnea (adult) (pediatric) Gastroesophageal reflux disease without esophagitis Esophageal reflux Hypogonadism in male Generalized anxiety disorder Bilateral carotid artery stenosis Occlusion and stenosis of carotid artery without mention of cerebral infarction Compression deformity of vertebra Other acquired deformity of back or spine DDD (degenerative disc disease), lumbar Degeneration of lumbar or lumbosacral intervertebral disc History of iron deficiency Personal history of diseases of blood and blood-forming organs [facility]* Diagnosis Chronic pain of left knee Pain in joint, lower leg [facility]* Diagnosis Left wrist pain Pain in joint, forearm [facility]* Diagnosis Left wrist pain Pain in joint, forearm [facility]* Diagnosis Chest pain, unspecified type SOB (shortness of breath) Shortness of breath [facility]* Diagnosis URI, acute- Primary Acute upper respiratory infections of unspecified site Acute cough URI, acute Acute upper respiratory infections of unspecified site Acute cough [facility] URI, acute Acute upper respiratory infections of unspecified site Acute cough [facility]* Diagnosis Nasal congestion- Primary Other diseases of nasal cavity and sinuses Chronic cough Cough [facility]* Diagnosis URI with cough and congestion- Primary URI with cough and congestion [facility]* Diagnosis Community acquired pneumonia of left lung, unspecified part of lung- Primary [facility]* Diagnosis URI with cough and congestion [facility]* Diagnosis Coronary artery disease involving [place] heart without angina pectoris, unspecified vessel or lesion type- Primary Nocturia Mixed hyperlipidemia NOE (obstructive sleep apnea) Obstructive sleep apnea (adult) (pediatric) Gastroesophageal reflux disease without esophagitis Esophageal reflux Generalized anxiety disorder Bilateral carotid artery stenosis Occlusion and stenosis of carotid artery without mention of cerebral infarction Nasal congestion Other diseases of nasal cavity and sinuses Cough, unspecified type Chronic pain of left knee Pain in joint, lower leg Screening for prostate cancer Special screening for malignant neoplasm of prostate [facility]* Diagnosis Chronic pain of left knee Pain in joint, lower leg [facility]* Diagnosis Cough, unspecified type [facility]* Diagnosis Mild intermittent asthma, uncomplicated- Primary Unspecified asthma [facility]* Diagnosis Coronary artery disease involving [place] heart without angina pectoris, unspecified vessel or lesion type- Primary Mixed hyperlipidemia NOE (obstructive sleep apnea) Obstructive sleep apnea (adult) (pediatric) Gastroesophageal reflux disease without esophagitis Esophageal reflux Generalized anxiety disorder Bilateral carotid artery stenosis Occlusion and stenosis of carotid artery without mention of cerebral infarction Nocturia Encounter for immunization Need for other specified prophylactic vaccination against single bacterial disease Obesity, Class I, BMI 30-34.9 Obesity, unspecified Lightheaded Dizziness and giddiness Bradycardia Other specified cardiac dysrhythmias [facility]* Diagnosis Polycythemia- Primary Polycythemia vera [facility]* Diagnosis Cellulitis of skin- Primary Cellulitis and abscess of unspecified site Cellulitis of right external ear Infective otitis externa, unspecified [facility]* Diagnosis Acute diffuse otitis externa of right ear- Primary Screening for depression documented in this encounter [facility] Discharge instructionsAdditional Instructions 1. Take the antibiotic you are prescribed until gone. 2. If there is no improvement in 48 hours follow-up with Dr. Wilcox or return to the emergency departmentWSelect [facility] Work Phone: Reason for referral (narrative)* Outpatient Procedure (Routine) - Closed Specialty Diagnoses / Procedures Referred By Contac t Referred To [facility] Diagnoses NSTEMI (non-ST elevated myocardial infarction) (HCC) Procedures ECG COMPLETE ECG ROUTINE ECG W/LEAST 12 LDS W/I&R Yousif Franco MD [address] [place] [address] [facility] [address] [place] [address] Referral ID Status Reason Start Date Expiration Date V isits Requested Visits Authorized [id number] Closed Auto-Generate d Referral 07/27/2022 07/27/2023 1 1 [facility] for referral (narrative)* Diagnostic Procedure Only (Routine) - Closed Specialty Diagnoses / Procedures Referred By Contac t Referred To Contact XR IMAGING Diagnoses Left wrist pain Procedures XR WRIST GENERAL 3V PA/LAT/OBL LEFT RADEX WRIST COMPLETE MINIMUM 3 VIEWS Blake Wilcox MD [facility] [place] [address] Xr Imaging Referral ID Status Reason Start Date Expiration Date V isits Requested Visits Authorized [id number] Closed Auto-Generate d Referral 09/19/2022 10/19/2023 1 1 [facility] for referral (narrative)* Diagnostic Procedure Only (Routine) - Closed Specialty Diagnoses / Procedures Referred By Contac t Referred To Contact XR IMAGING Diagnoses Chronic pain of left knee Procedures XR KNEE GENERAL 4V AP BOTH/PA BOTH/LAT/MERC LEFT RADIOLOGIC EXAM KNEE COMPLETE 4/MORE VIEWS Blake Wilcox MD [facility] [place] [address] Xr Imaging [facility] Referral ID Status Reason Start Date Expiration Date V isits Requested Visits Authorized [id number] Closed Auto-Generate d Referral 03/20/2023 04/18/2024 1 1 [facility] for referral (narrative)* Diagnostic Procedure Only (Routine) - Closed Specialty Diagnoses / Procedures Referred By Contac t Referred To Contact XR IMAGING Diagnoses Chronic pain of left knee Procedures XR KNEE GENERAL 4V AP BOTH/PA BOTH/LAT/MERC LEFT RADIOLOGIC EXAM KNEE COMPLETE 4/MORE VIEWS Blake Wilcox MD [address] [place] [address] [place] [address] Referral ID Status Reason Start Date Expiration Date V isits Requested Visits Authorized [id number] Closed Auto-Generate d Referral 03/20/2023 04/18/2024 1 1 [facility] for referral (narrative)* Diagnostic Procedure Only (Routine) - Closed Specialty Diagnoses / Procedures Referred By Contac t Referred To Contact XR IMAGING Diagnoses Left wrist pain Procedures XR WRIST GENERAL 3V PA/LAT/OBL LEFT RADEX WRIST COMPLETE MINIMUM 3 VIEWS Blake Wilcox MD [address] [place] [address] [place] [address] Referral ID Status Reason Start Date Expiration Date V isits Requested Visits Authorized [id number] Closed Auto-Generate d Referral 09/19/2022 10/19/2023 1 1 [facility] for referral (narrative)* Diagnostic Procedure Only (Routine) - Closed Specialty Diagnoses / Procedures Referred By Contac t Referred To Contact XR IMAGING Diagnoses Left wrist pain Procedures XR WRIST GENERAL 3V PA/LAT/OBL LEFT RADEX WRIST COMPLETE MINIMUM 3 VIEWS Blake Wilcox MD [address] [place] [address] [place] [address] Referral ID Status Reason Start Date Expiration Date V isits Requested Visits Authorized [id number] Closed Auto-Generate d Referral 08/05/2022 09/04/2023 1 1 [facility] for referral (narrative)* Diagnostic Procedure Only (Routine) - Closed Specialty Diagnoses / Procedures Referred By Contac t Referred To Contact XR IMAGING Diagnoses Chronic pain of left knee Procedures XR KNEE GENERAL 4V AP BOTH/PA BOTH/LAT/MERC LEFT RADIOLOGIC EXAM KNEE COMPLETE 4/MORE VIEWS Blake Wilcox MD [address] [place] [address] [place] [id number] Referral ID Status Reason Start Date Expiration Date V isits Requested Visits Authorized [id number] Closed Auto-Generate d Referral 06/17/2024 07/17/2025 1 1 * Outpatient Procedure (Routine) - Authorized Specialty Diagnoses / Procedures Referred By Contac t Referred To Contact [facility] Diagnoses Cough, unspecified type Procedures [place] [address] [place] [address] [facility] [place] [phone] Referral ID Status Reason Start Date Expiration Date Visits Requested Visits Authorized [id number] Authorized Auto-Generat ed Referral 4 07/30/2024 1 1 * Outpatient Procedure (Routine) - Authorized Specialty Diagnoses / Procedures Referred By Contac t Referred To Contact [facility] Diagnoses Cough, unspecified type Procedures SPIROMETRY WITH DILATOR IF OBSTRUCTED BRNCDILAT RSPSE SPMTRY PRE&POST-BRNCDILAT ADMN Blake Wilcox MD [address] [place] [address] [address] Referral ID Status Reason Start Date Expiration Date Visits Requested Visits Authorized [id number] Authorized Auto-Generat ed Referral 4 07/17/2025 1 1 * Consult, Test, Treat (Routine) - Authorized Specialty Diagnoses / Procedures Referred By Contac t Referred To Contact Ent - Otolaryngology Diagnoses Nasal congestion Cough, unspecified type Procedures CONSULT TO ENT OFFICE/OUTPATIENT NEW HIGH MDM 60 MINUTES Blake Wilcox MD [facility] [place] [address] Referral ID Status Reason Start Date Expiration Date Visits Requested Visits Authorized [id number] Authorized PCP Requested Referral 11/1806/17/2025 1 1 [facility] for referral (narrative)No reason for referral information availableFranc[facility] Work Phone: [facility] Narrative* Diagnostic Procedure Only (Routine) - Closed Specialty Diagnoses / Procedures Referred By Contac t Referred To Contact XR IMAGING Diagnoses Chronic pain of left knee Procedures XR KNEE GENERAL 4V AP BOTH/PA BOTH/LAT/MERC LEFT RADIOLOGIC EXAM KNEE COMPLETE 4/MORE VIEWS Blake Wilcox MD [address] [place] [address] [place] [address] Referral ID Status Reason Start Date Expiration Date V isits Requested Visits Authorized [id number] Closed Auto-Generate d Referral 03/20/2023 04/18/2024 1 1 [facility] for visit Narrative* Diagnostic Procedure Only (Routine) - Closed Specialty Diagnoses / Procedures Referred By Contac t Referred To Contact XR IMAGING Diagnoses Left wrist pain Procedures XR WRIST GENERAL 3V PA/LAT/OBL LEFT RADEX WRIST COMPLETE MINIMUM 3 VIEWS Blake Wilcox MD [facility] [place] [address] [place] [address] Referral ID Status Reason Start Date Expiration Date V isits Requested Visits Authorized [id number] Closed Auto-Generate d Referral 09/19/2022 10/19/2023 1 1 [facility] for visit Narrative* Diagnostic Procedure Only (Routine) - Closed Specialty Diagnoses / Procedures Referred By Contac t Referred To Contact XR IMAGING Diagnoses Left wrist pain Procedures XR WRIST GENERAL 3V PA/LAT/OBL LEFT RADEX WRIST COMPLETE MINIMUM 3 VIEWS Blake Wilcox MD [facility] [place] [address] [place] [address] Referral ID Status Reason Start Date Expiration Date V isits Requested Visits Authorized [id number] Closed Auto-Generate d Referral 08/05/2022 09/04/2023 1 1 [facility] for visit Narrative* Diagnostic Procedure Only (Routine) - Closed Specialty Diagnoses / Procedures Referred By Contac t Referred To Contact XR IMAGING Diagnoses Chronic pain of left knee Procedures XR KNEE GENERAL 4V AP BOTH/PA BOTH/LAT/MERC LEFT RADIOLOGIC EXAM KNEE COMPLETE 4/MORE VIEWS Blake Wilcox MD [address] [place] [address] [place] [address] Referral ID Status Reason Start Date Expiration Date V isits Requested Visits Authorized [id number] Closed Auto-Generate d Referral 06/17/2024 07/17/2025 1 1 [facility] Summary Purpose Family History No Family History Records Found Relationship Condition Age at Onset Recorded Date/T jaime father Alzheimer's disease Unknown mother Coronary artery disease Unknown Diabetes mellitus Unknown Cardiac disease Unknown History of motor vehicle accident Unknown Advance Directives No Advanced Directives Records FoundDocuments on File Type Date 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 Advance Directive(s) 12/10/2020 9:51 AM Advance Directive Response Recorded Date/ Time Living Will No July 16 022 6:13pm Power of Shoe Cobbler No July 16, 2022 6:13pm Advance Directive Response Recorded Date/ Time Advance Directives on File No 2022 2:14pm Living Will No August 08 2:14pm Power of Shoe Cobbler No August 08 2 023 2:14pm Advance Directive Response Recorded Date/ Time Advance Directives on File No 2022 3:14pm Living Will No August 08 3:14pm Power of Shoe Cobbler No August 08 2 023 3:14pm Advance Directive Response Recorded Date/ Time Living Will No December 16, 2022 5 :52pm Power of Shoe Cobbler No December 16, 2022 5:52pm Advance Directive Response Recorded Date/ Time Living Will No December 16, 2022 4 :52pm Power of Shoe Cobbler No December 16, 2022 4:52pm Advance Directive Response Recorded Date/ Time Living Will No September 19 2 024 10:08pm Power of Shoe Cobbler No September 19, 2023 10:08pm Advance Directive Response Recorded Date/ Time Do you have a Healthcare Power of Shoe Cobbler? Yes February 20, 2025 7:52pm Reason for Referral Specialty Diagnoses / Procedures Referred By Contac t Referred To Contact General Surgery Diagnoses Positive fecal occult blood test Procedures CONSULT TO GENERAL SURGERY OFFICE/OUTPATIENT NEW HIGH MDM 60-74 MINUTES [employer], SEBASTIAN Rocha [address] [place] [address] Referral ID Status Reason Start Date Expiration Date Visits Requested Visits Authorized [id number] Authorized PCP Requested Referral 05/02/2022 05/02/2023 1 1 Specialty Diagnoses / Procedures Referred By Contac t Referred To Contact General Surgery Diagnoses Rectal lesion Procedures CONSULT TO GENERAL SURGERY OFFICE/OUTPATIENT [facility] 60-74 MINUTES Blake Wilcox MD [address] [place] [id number] Referral ID Status Reason Start Date Expiration Date Visits Requested Visits Authorized [id number] Authorized PCP Requested Referral 08/05/2022 08/05/2023 1 1 Specialty Diagnoses / Procedures Referred By Contac t Referred To [facility] Diagnoses Cough, unspecified type Procedures LUNG VOLUMES Blake Wilcox MD [address] [place] [address] [facility] [address] [place] [address] Referral ID Status Reason Start Date Expiration Date Visits Requested Visits Authorized [id number] Authorized Auto-Generat ed Referral 08/05/2022 09/04/2023 1 1 Specialty Diagnoses / Procedures Referred By Contac t Referred To [facility] Diagnoses Cough, unspecified type Procedures LUNG DIFFUSION CAPACITY (DLCO) DIFFUSING CAPACITY Blake Wilcox MD [address] [place] [address] [facility] [address] [place] [address] Referral ID Status Reason Start Date Expiration Date Visits Requested Visits Authorized [id number] Authorized Auto-Generat ed Referral 08/05/2022 09/04/2023 1 1 Specialty Diagnoses / Procedures Referred By Contac t Referred To [facility] Diagnoses Cough, unspecified type Procedures SPIROMETRY WITH DILATOR IF OBSTRUCTED BRNCDILAT RSPSE SPMTRY PRE&POST-BRNCDILAT ADMN Blake Wilcox MD [address] [place] [address] [facility] [address] [place] [id number] Referral ID Status Reason Start Date Expiration Date Visits Requested Visits Authorized [id number] Authorized Auto-Generat ed Referral 08/05/2022 09/04/2023 1 1 Specialty Diagnoses / Procedures Referred By Contac t Referred To Contact XR IMAGING Diagnoses Left wrist pain Procedures XR WRIST GENERAL 3V PA/LAT/OBL LEFT RADEX WRIST COMPLETE MINIMUM 3 VIEWS Blake Wilcox MD [address] [place] [address] Xr Imaging Referral ID Status Reason Start Date Expiration Date V isits Requested Visits Authorized [id number] Closed Auto-Generate d Referral 08/05/2022 09/04/2023 1 1 Specialty Diagnoses / Procedures Referred By Contac t Referred To Contact [facility] Diagnoses Osteoarthritis of knee, unspecified laterality, unspecified osteoarthritis type Procedures CONSULT TO PHYSICAL THERAPY PHYSICAL THERAPY EVALUATION HIGH COMPLEX 45 MINS Blake Wilcox MD [address] [place] [address] [facility] [address] [address] Referral ID Status Reason Start Date Expiration Date Visits Requested Visits Authorized [id number] Pending Review Auto-Generat ed Referral 03/23/2023 03/22/2024 1 1 Specialty Diagnoses / Procedures Referred By Contac t Referred To Contact [facility] Diagnoses Compression deformity of vertebra DDD (degenerative disc disease), lumbar Procedures CONSULT TO PHYSICAL THERAPY PHYSICAL THERAPY EVALUATION HIGH COMPLEX 45 MINS Blake Wilcox MD [address] [place] [address] [facility] [address] [address] Referral ID Status Reason Start Date Expiration Date Visits Requested Visits Authorized [id number] Pending Review Auto-Generat ed Referral 12/11/2023 12/10/2024 1 1 Chief Complaint and Reason for Visit Chief Complaint NSTEMI Reason for Visit Elevated blood press ure reading Non-ST elevation NM (NSTEMI) Chest pain Chief Complaint NSTEMI NSTEMI NSTEMI NSTEMI NSTEMI NSTEMI s/p NSTEMI 12-20 former NN pt Belal consult PCI with stent PCI with stent Reason for Visit Atherosclerotic hear t disease of [place] coronary artery without angina pectoris Stented coronary artery Elevated blood pressure reading Non-ST elevation NM (NSTEMI) Atherosclerotic heart disease of [place] coronary artery without angina pectoris Cough NOE (obstructive sleep apnea) Stented coronary artery Non-ST elevation NM (NSTEMI) Chief Complaint NSTEMI NSTEMI NSTEMI NSTEMI NSTEMI NSTEMI s/p NSTEMI 12-20 former NN pt Belal consult PCI with stent PCI with stent NOE PCI with stent Reason for Visit Atherosclerotic hear t disease of [place] coronary artery without angina pectoris Stented coronary artery Elevated blood pressure reading Non-ST elevation NM (NSTEMI) Atherosclerotic heart disease of [place] coronary artery without angina pectoris Cough NOE (obstructive sleep apnea) Stented coronary artery Non-ST elevation NM (NSTEMI) Chief Complaint NSTEMI NSTEMI NSTEMI NSTEMI NSTEMI NSTEMI s/p NSTEMI 12-20 former NN pt Belal consult PCI with stent PCI with stent NOE Sleep apnea SCREENING/WOOD PCI with stent 6 wk FU Reason for Visit Atherosclerotic hear t disease of [place] coronary artery without angina pectoris Stented coronary artery Elevated blood pressure reading Non-ST elevation NM (NSTEMI) Atherosclerotic heart disease of [place] coronary artery without angina pectoris Cough NOE (obstructive sleep apnea) Stented coronary artery Non-ST elevation NM (NSTEMI) NOE (obstructive sleep apnea) Shortness of breath Hyperlipidemia NOE (obstructive sleep apnea) Stented coronary artery Chief Complaint NSTEMI NSTEMI NSTEMI NSTEMI NSTEMI NSTEMI s/p NSTEMI 12-20 former NN pt Belal consult PCI with stent PCI with stent NOE Sleep apnea SCREENING/WOOD PCI with stent 6 wk FU PCI with stent Reason for Visit Atherosclerotic hear t disease of [place] coronary artery without angina pectoris Stented coronary artery Elevated blood pressure reading Non-ST elevation NM (NSTEMI) Atherosclerotic heart disease of [place] coronary artery without angina pectoris Cough NOE (obstructive sleep apnea) Stented coronary artery Non-ST elevation NM (NSTEMI) NOE (obstructive sleep apnea) Shortness of breath Hyperlipidemia NOE (obstructive sleep apnea) Stented coronary artery Chief Complaint s/p NSTEMI 12-20 for dianna NN pt Belal consult PCI with stent PCI with stent NOE Sleep apnea SCREENING/WOOD PCI with stent 6 wk FU PCI with stent PCI with stent Reason for Visit Atherosclerotic hear t disease of [place] coronary artery without angina pectoris Cough NOE (obstructive sleep apnea) Stented coronary artery Non-ST elevation NM (NSTEMI) NOE (obstructive sleep apnea) Shortness of breath Hyperlipidemia NOE (obstructive sleep apnea) Stented coronary artery Chief Complaint PCI with stent 3 M FU LACERATION 1 M FU 6 m fu (MOVED FROM [facility]) Reason for Visit Atherosclerotic hear t disease of [place] coronary artery without angina pectoris NOE (obstructive sleep apnea) Cough NOE (obstructive sleep apnea) Atherosclerotic heart disease of [place] coronary artery without angina pectoris Elevated glucose Fatigue Hyperlipidemia NOE (obstructive sleep apnea) Shortness of breath Chief Complaint OA OF KNEE RX HERE 6 M FU LEAK,NOE; NB TR APPROVED 06/23/23 Reason for Visit NOE (obstructive sle ep apnea) Chief Complaint 6 M FU LEAK,NOE; NB TR APPROVED 06/23/23 SHOULDER Reason for Visit NOE (obstructive sle ep apnea) Chief Complaint Admit Date 3 M FU October 22, 2024 2:3 5pm 6 M FU February 19, 2025 10:5 5am Reason for Visit Admit Date Cough October 22, 2024 2:3 5pm NOE (obstructive sleep apnea) September 2:35pm Ventricular tachycardia February 19, 2025 10:55am Chest pain February 19, 2025 10:5 5am Chief Complaint Admit Date 6 M FU February 19, 2025 10:5 5am EAR PAIN February 20, 2025 7:39 pm Reason for Visit Admit Date Ventricular tachycardia February 19, 2025 10:55am Chest pain February 19, 2025 10:5 5am Additional Source Comments (unrecognized sect ion and content) No Status Records FoundNo Status Records FoundNo Status Records FoundNo Status Records Found INFORMATION SOURCE (unrecogn ized section and content) DATE CREATED AUTHOR 06/04/2019 [facility] DATE CREATED AUTHOR AUTHOR'S ORGANIZ ATION 08/13/2021 [facility] DATE CREATED AUTHOR AUTHOR'S ORGANIZ ATION 03/19/2025 [facility] DATE CREATED AUTHOR AUTHOR'S ORGANIZ ATION 03/29/2025 [facility] Source Comments (unrecognize d section and content) In the event this informatio n is protected by the [facility] Confidentiality of Alcohol and Drug Abuse Patient Records regulations: The Federal rules restrict any use of the information to criminally investigate or prosecute any alcohol or drug abuse patient.[facility] HealthIn the event this information is protected by the Federal Confidentiality of Alcohol and Drug Abuse Patient Records regulations: The Federal rules restrict any use of the information to criminally investigate or prosecute any alcohol or drug abuse patient.[facility] HealthIn the event this information is protected by the Federal Confidentiality of Alcohol and Drug Abuse Patient Records regulations: The Federal rules restrict any use of the information to criminally investigate or prosecute any alcohol or drug abuse patient.[facility] HealthIn the event this information is protected by the Federal Confidentiality of Alcohol and Drug Abuse Patient Records regulations: The Federal rules restrict any use of the information to criminally investigate or prosecute any alcohol or drug abuse patient.[facility] ClinicIn the event this information is protected by the Federal Confidentiality of Alcohol and Drug Abuse Patient Records regulations: The Federal rules restrict any use of the information to criminally investigate or prosecute any alcohol or drug abuse patient.[facility] HealthIn the event this information is protected by the Federal Confidentiality of Alcohol and Drug Abuse Patient Records regulations: The Federal rules restrict any use of the information to criminally investigate or prosecute any alcohol or drug abuse patient.[facility] HealthIn the event this information is protected by the Federal Confidentiality of Alcohol and Drug Abuse Patient Records regulations: The Federal rules restrict any use of the information to criminally investigate or prosecute any alcohol or drug abuse patient.[facility] HealthIn the event this information is protected by the Federal Confidentiality of Alcohol and Drug Abuse Patient Records regulations: The Federal rules restrict any use of the information to criminally investigate or prosecute any alcohol or drug abuse patient.[facility] HealthIn the event this information is protected by the Federal Confidentiality of Alcohol and Drug Abuse Patient Records regulations: The Federal rules restrict any use of the information to criminally investigate or prosecute any alcohol or drug abuse patient.[facility] HealthIn the event this information is protected by the Federal Confidentiality of Alcohol and Drug Abuse Patient Records regulations: The Federal rules restrict any use of the information to criminally investigate or prosecute any alcohol or drug abuse patient.[facility] HealthIn the event this information is protected by the Federal Confidentiality of Alcohol and Drug Abuse Patient Records regulations: The Federal rules restrict any use of the information to criminally investigate or prosecute any alcohol or drug abuse patient.[facility] HealthIn the event this information is protected by the Federal Confidentiality of Alcohol and Drug Abuse Patient Records regulations: The Federal rules restrict any use of the information to criminally investigate or prosecute any alcohol or drug abuse patient.[facility] HealthIn the event this information is protected by the Federal Confidentiality of Alcohol and Drug Abuse Patient Records regulations: The Federal rules restrict any use of the information to criminally investigate or prosecute any alcohol or drug abuse patient.[facility] HealthIn the event this information is protected by the Federal Confidentiality of Alcohol and Drug Abuse Patient Records regulations: The Federal rules restrict any use of the information to criminally investigate or prosecute any alcohol or drug abuse patient.[facility] HealthIn the event this information is protected by the Federal Confidentiality of Alcohol and Drug Abuse Patient Records regulations: The Federal rules restrict any use of the information to criminally investigate or prosecute any alcohol or drug abuse patient.[facility] HealthIn the event this information is protected by the Federal Confidentiality of Alcohol and Drug Abuse Patient Records regulations: The Federal rules restrict any use of the information to criminally investigate or prosecute any alcohol or drug abuse patient.[facility] HealthIn the event this information is protected by the Federal Confidentiality of Alcohol and Drug Abuse Patient Records regulations: The Federal rules restrict any use of the information to criminally investigate or prosecute any alcohol or drug abuse patient.[facility] HealthIn the event this information is protected by the Federal Confidentiality of Alcohol and Drug Abuse Patient Records regulations: The Federal rules restrict any use of the information to criminally investigate or prosecute any alcohol or drug abuse patient.[facility] HealthIn the event this information is protected by the Federal Confidentiality of Alcohol and Drug Abuse Patient Records regulations: The Federal rules restrict any use of the information to criminally investigate or prosecute any alcohol or drug abuse patient.[facility] HealthIn the event this information is protected by the Federal Confidentiality of Alcohol and Drug Abuse Patient Records regulations: The Federal rules restrict any use of the information to criminally investigate or prosecute any alcohol or drug abuse patient.[facility] HealthIn the event this information is protected by the Federal Confidentiality of Alcohol and Drug Abuse Patient Records regulations: The Federal rules restrict any use of the information to criminally investigate or prosecute any alcohol or drug abuse patient.[facility] HealthIn the event this information is protected by the Federal Confidentiality of Alcohol and Drug Abuse Patient Records regulations: The Federal rules restrict any use of the information to criminally investigate or prosecute any alcohol or drug abuse patient.[facility] HealthIn the event this information is protected by the Federal Confidentiality of Alcohol and Drug Abuse Patient Records regulations: The Federal rules restrict any use of the information to criminally investigate or prosecute any alcohol or drug abuse patient.[facility] HealthIn the event this information is protected by the Federal Confidentiality of Alcohol and Drug Abuse Patient Records regulations: The Federal rules restrict any use of the information to criminally investigate or prosecute any alcohol or drug abuse patient.[facility] HealthIn the event this information is protected by the Federal Confidentiality of Alcohol and Drug Abuse Patient Records regulations: The Federal rules restrict any use of the information to criminally investigate or prosecute any alcohol or drug abuse patient.[facility] HealthIn the event this information is protected by the Federal Confidentiality of Alcohol and Drug Abuse Patient Records regulations: The Federal rules restrict any use of the information to criminally investigate or prosecute any alcohol or drug abuse patient.[facility] HealthIn the event this information is protected by the Federal Confidentiality of Alcohol and Drug Abuse Patient Records regulations: The Federal rules restrict any use of the information to criminally investigate or prosecute any alcohol or drug abuse patient.[facility] HealthIn the event this information is protected by the Federal Confidentiality of Alcohol and Drug Abuse Patient Records regulations: The Federal rules restrict any use of the information to criminally investigate or prosecute any alcohol or drug abuse patient.[facility] HealthIn the event this information is protected by the Federal Confidentiality of Alcohol and Drug Abuse Patient Records regulations: The Federal rules restrict any use of the information to criminally investigate or prosecute any alcohol or drug abuse patient.[facility] HealthIn the event this information is protected by the Federal Confidentiality of Alcohol and Drug Abuse Patient Records regulations: The Federal rules restrict any use of the information to criminally investigate or prosecute any alcohol or drug abuse patient.[facility] HealthIn the event this information is protected by the Federal Confidentiality of Alcohol and Drug Abuse Patient Records regulations: The Federal rules restrict any use of the information to criminally investigate or prosecute any alcohol or drug abuse patient.[facility] HealthIn the event this information is protected by the Federal Confidentiality of Alcohol and Drug Abuse Patient Records regulations: The Federal rules restrict any use of the information to criminally investigate or prosecute any alcohol or drug abuse patient.[facility] HealthIn the event this information is protected by the Federal Confidentiality of Alcohol and Drug Abuse Patient Records regulations: The Federal rules restrict any use of the information to criminally investigate or prosecute any alcohol or drug abuse patient.[facility] HealthIn the event this information is protected by the Federal Confidentiality of Alcohol and Drug Abuse Patient Records regulations: The Federal rules restrict any use of the information to criminally investigate or prosecute any alcohol or drug abuse patient.[facility] HealthIn the event this information is protected by the Federal Confidentiality of Alcohol and Drug Abuse Patient Records regulations: The Federal rules restrict any use of the information to criminally investigate or prosecute any alcohol or drug abuse patient.[facility] HealthIn the event this information is protected by the Federal Confidentiality of Alcohol and Drug Abuse Patient Records regulations: The Federal rules restrict any use of the information to criminally investigate or prosecute any alcohol or drug abuse patient.[facility] HealthIn the event this information is protected by the Federal Confidentiality of Alcohol and Drug Abuse Patient Records regulations: The Federal rules restrict any use of the information to criminally investigate or prosecute any alcohol or drug abuse patient.[facility] HealthIn the event this information is protected by the Federal Confidentiality of Alcohol and Drug Abuse Patient Records regulations: The Federal rules restrict any use of the information to criminally investigate or prosecute any alcohol or drug abuse patient.[facility] HealthIn the event this information is protected by the Federal Confidentiality of Alcohol and Drug Abuse Patient Records regulations: The Federal rules restrict any use of the information to criminally investigate or prosecute any alcohol or drug abuse patient.[facility] HealthIn the event this information is protected by the Federal Confidentiality of Alcohol and Drug Abuse Patient Records regulations: The Federal rules restrict any use of the information to criminally investigate or prosecute any alcohol or drug abuse patient.[facility] HealthIn the event this information is protected by the Federal Confidentiality of Alcohol and Drug Abuse Patient Records regulations: The Federal rules restrict any use of the information to criminally investigate or prosecute any alcohol or drug abuse patient.[facility] HealthIn the event this information is protected by the Federal Confidentiality of Alcohol and Drug Abuse Patient Records regulations: The Federal rules restrict any use of the information to criminally investigate or prosecute any alcohol or drug abuse patient.[facility] HealthIn the event this information is protected by the Federal Confidentiality of Alcohol and Drug Abuse Patient Records regulations: The Federal rules restrict any use of the information to criminally investigate or prosecute any alcohol or drug abuse patient.[facility] HealthIn the event this information is protected by the Federal Confidentiality of Alcohol and Drug Abuse Patient Records regulations: The Federal rules restrict any use of the information to criminally investigate or prosecute any alcohol or drug abuse patient.[facility] HealthIn the event this information is protected by the Federal Confidentiality of Alcohol and Drug Abuse Patient Records regulations: The Federal rules restrict any use of the information to criminally investigate or prosecute any alcohol or drug abuse patient.[facility] HealthIn the event this information is protected by the Federal Confidentiality of Alcohol and Drug Abuse Patient Records regulations: The Federal rules restrict any use of the information to criminally investigate or prosecute any alcohol or drug abuse patient.[facility] HealthIn the event this information is protected by the Federal Confidentiality of Alcohol and Drug Abuse Patient Records regulations: The Federal rules restrict any use of the information to criminally investigate or prosecute any alcohol or drug abuse patient.[facility] HealthIn the event this information is protected by the Federal Confidentiality of Alcohol and Drug Abuse Patient Records regulations: The Federal rules restrict any use of the information to criminally investigate or prosecute any alcohol or drug abuse patient.[facility] HealthIn the event this information is protected by the Federal Confidentiality of Alcohol and Drug Abuse Patient Records regulations: The Federal rules restrict any use of the information to criminally investigate or prosecute any alcohol or drug abuse patient.[facility] HealthIn the event this information is protected by the Federal Confidentiality of Alcohol and Drug Abuse Patient Records regulations: The Federal rules restrict any use of the information to criminally investigate or prosecute any alcohol or drug abuse patient.[facility] HealthIn the event this information is protected by the Federal Confidentiality of Alcohol and Drug Abuse Patient Records regulations: The Federal rules restrict any use of the information to criminally investigate or prosecute any alcohol or drug abuse patient.[facility] HealthIn the event this information is protected by the Federal Confidentiality of Alcohol and Drug Abuse Patient Records regulations: The Federal rules restrict any use of the information to criminally investigate or prosecute any alcohol or drug abuse patient.[facility] HealthIn the event this information is protected by the Federal Confidentiality of Alcohol and Drug Abuse Patient Records regulations: The Federal rules restrict any use of the information to criminally investigate or prosecute any alcohol or drug abuse patient.[facility] HealthIn the event this information is protected by the Federal Confidentiality of Alcohol and Drug Abuse Patient Records regulations: The Federal rules restrict any use of the information to criminally investigate or prosecute any alcohol or drug abuse patient.[facility] ClinicIn the event this information is protected by the Federal Confidentiality of Alcohol and Drug Abuse Patient Records regulations: The Federal rules restrict any use of the information to criminally investigate or prosecute any alcohol or drug abuse patient.[facility] HealthIn the event this information is protected by the Federal Confidentiality of Alcohol and Drug Abuse Patient Records regulations: The Federal rules restrict any use of the information to criminally investigate or prosecute any alcohol or drug abuse patient.[facility] HealthIn the event this information is protected by the Federal Confidentiality of Alcohol and Drug Abuse Patient Records regulations: The Federal rules restrict any use of the information to criminally investigate or prosecute any alcohol or drug abuse patient.[facility] HealthIn the event this information is protected by the Federal Confidentiality of Alcohol and Drug Abuse Patient Records regulations: The Federal rules restrict any use of the information to criminally investigate or prosecute any alcohol or drug abuse patient.[facility] HealthIn the event this information is protected by the Federal Confidentiality of Alcohol and Drug Abuse Patient Records regulations: The Federal rules restrict any use of the information to criminally investigate or prosecute any alcohol or drug abuse patient.[facility] HealthIn the event this information is protected by the Federal Confidentiality of Alcohol and Drug Abuse Patient Records regulations: The Federal rules restrict any use of the information to criminally investigate or prosecute any alcohol or drug abuse patient.[facility] HealthIn the event this information is protected by the Federal Confidentiality of Alcohol and Drug Abuse Patient Records regulations: The Federal rules restrict any use of the information to criminally investigate or prosecute any alcohol or drug abuse patient.[facility] HealthIn the event this information is protected by the Federal Confidentiality of Alcohol and Drug Abuse Patient Records regulations: The Federal rules restrict any use of the information to criminally investigate or prosecute any alcohol or drug abuse patient.[facility] HealthIn the event this information is protected by the Federal Confidentiality of Alcohol and Drug Abuse Patient Records regulations: The Federal rules restrict any use of the information to criminally investigate or prosecute any alcohol or drug abuse patient.[facility] HealthIn the event this information is protected by the Federal Confidentiality of Alcohol and Drug Abuse Patient Records regulations: The Federal rules restrict any use of the information to criminally investigate or prosecute any alcohol or drug abuse patient.[facility] HealthIn the event this information is protected by the Federal Confidentiality of Alcohol and Drug Abuse Patient Records regulations: The Federal rules restrict any use of the information to criminally investigate or prosecute any alcohol or drug abuse patient.[facility] HealthIn the event this information is protected by the Federal Confidentiality of Alcohol and Drug Abuse Patient Records regulations: The Federal rules restrict any use of the information to criminally investigate or prosecute any alcohol or drug abuse patient.[facility] Reason for Visit (unrecogniz ed section and content) Reason Comments Ear Problem qtip broke off in ri ght ear, cough, sinus pressure and sore throat x 9 days Reason Comments 6 Month Exam Specialty Diagnoses / Procedures Referred By Kristina t Referred To Contact Family Practice / FAMILY MEDICINE Diagnoses 6 mo follow up Procedures 4C YANETH Prince MD [employer] APRN.CHIEF OPERATOR [employer] [address] [place] [address] Referral ID Status Reason Start Date Expiration Date Visits Re quested Visits Authorized [id number] Closed 02/07/2022 07/30/2022 1 1 Reason Comments Orders Reason Comments Results Reason Comments Medication Request testosterone Reason Comments Orders Prior Auth for Testo sterone Reason Comments Insurance Authorization Reason Comments Discussion Results of IFOBT Reason Comments Consult +Fecal occult blood Specialty Diagnoses / Procedures Referred By Kristina juarez Referred To Contact General Surgery Diagnoses Positive fecal occult blood test Procedures CONSULT TO GENERAL SURGERY OFFICE/OUTPATIENT NEW HIGH MDM 60-74 MINUTES [employer], 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 [address] [place] [address] Referral ID Status Reason Start Date Expiration Date V isits Requested Visits Authorized [id number] Closed PCP Requested Referral 05/02/2022 05/02/2023 1 1 Reason Comments Hospital F/U [facility] admin 07/16/22 w ith left arm pain dx elevated BP, MID/C 07/19/22 Reason Comments Cough Has had a long time due to reflux but seems to be worse Reason Comments Establish Care Reason Onset Date Comments Refill Request 08/06/2022 Reason Comments Spirometry Specialty Diagnoses / Procedures Referred By Kristina t Referred To [facility] Diagnoses Cough, unspecified type Procedures LUNG VOLUMES Blake Wilcox MD [address] [place] [address] [facility] [address] [place] [address] Referral ID Status Reason Start Date Expiration Date V isits Requested Visits Authorized [id number] Closed Auto-Generate d Referral 08/05/2022 09/04/2023 1 1 Specialty Diagnoses / Procedures Referred By Contac t Ref[facility] Diagnoses Cough, unspecified type Procedures LUNG DIFFUSION CAPACITY (DLCO) DIFFUSING CAPACITY Blake Wilcox MD [address] [place] [address] [facility] [address] [place] [address] Referral ID Status Reason Start Date Expiration Date V isits Requested Visits Authorized [id number] Closed Auto-Generate d Referral 08/05/2022 09/04/2023 1 1 Reason Comments Appointment Rescheduled Reason Comments Follow Up Reason Comments Sinus Problem Reason Onset Date Comments Refill Request 12/10/2022 Reason Onset Date Comments Refill Request 02/11/2023 Reason Comments 6 Month Exam Derm Problem Pain Reason Comments Results Reason Onset Date Comments Refill Request 07/01/2023 Reason Comments Fever Drainage, stomach ac he, CORONEL x 3 days Reason Comments Appointment Reason Comments ER F/U Reason Onset Date Comments Refill Request 11/08/2023 Reason Comments Physical Specialty Diagnoses / Procedures Referred By Contac t Referred To Contact Radiology / [facility] Diagnoses Chest pain, unspecified Shortness of breath Chest pain, unspecified type [R07.9] SOB (shortness of breath) [R06.02] Procedures RADIOLOGIC EXAM CHEST 2 VIEWS XR CHEST [employer], SEBASTIAN Rocha [address] [place] [address] [facility] [address] [place] [address] Referral ID Status Reason Start Date Expiration Date Visits Re quested Visits Authorized [id number] Closed 08/06/2021 07/30/2022 1 1 Reason Comments Head Congestion Sinus drainage, ches t congestion, cough x4 days Reason Comments Chest Congestion cough, nasal drainag e seen a few weeks ago, pneumonia exposure Reason Comments Future Appointment Reason Comments Cough Chest Congestion Head Congestion Reason Comments 6 Month Exam Left Knee Pain Referral ID Status Reason Start Date Expiration Date V isits Requested Visits Authorized [id number] Closed Auto-Generate d Referral 06/17/2024 07/30/2024 1 1 Specialty Diagnoses / Procedures Referred By Donnellac t Referred [facility] Diagnoses Cough, unspecified type Procedures SPIROMETRY WITH DILATOR IF OBSTRUCTED BRNCDILAT RSPSE SPMTRY PRE&POST-BRNCDILAT N Blake Wilcox MD [address] [place] [address] [facility] [address] [place] [address] Referral ID Status Reason Start Date Expiration Date V isits Requested Visits Authorized [id number] Closed Auto-Generate d Referral 06/17/2024 07/17/2025 1 1 Reason Comments Results spirometery Reason Comments Ear Problem R ear lobe swollen x 4 days, warm to touch, low fever Reason Comments ER F/U [facility] 02/20/25 Cellulit is of right earlobe Reason Onset Date Comments Refill Request 03/13/2025 Reason Onset Date Comments Refill Request 03/13/2025 Medication Problem 03/13/2025 Needs only a short term of Losartan sent to local pharmacy Care Teams (unrecognized sec tion and content) Director Strategic Planning Relationship Specialty Start Date End Date Yousif Franco MD [address], [place] [id number] PCP - General Family Practice 11/07/16 Director Strategic Planning Relationship Specialty Start Date End Date Yousif Franco MD [address], [place] [id number] PCP - General Family Practice 11/07/16 Director Strategic Planning Relationship Specialty Start Date End Date Yousif Franco MD [address], [place] [id number] PCP - General Family Practice 11/07/16 Director Strategic Planning Relationship Specialty Start Date End Date Yousif Franco MD [address], [place] [id number] PCP - General Family Practice 11/07/16 Director Strategic Planning Relationship Specialty Start Date End Date Yousif Franco MD [address] [place] [address] PCP - General Family Practice 11/07/16 Director Strategic Planning Relationship Specialty Start Date End Date Yousif Franco MD [address] [place] [address] PCP - General Family Medicine 11/07/16 Director Strategic Planning Relationship Specialty Start Date End Date Yousif Franco MD [address] [place] [address] PCP - General Family Medicine 11/07/16 Director Strategic Planning Relationship Specialty Start Date End Date Yousif Franco MD [address] [place] [address] PCP - General Family Medicine 11/07/16 Director Strategic Planning Relationship Specialty Start Date End Date Yousif Franco MD [address] [place] [address] PCP - General Family Medicine 11/07/16 Director Strategic Planning Relationship Specialty Start Date End Date Yousif Franco MD [address] [place] [address] PCP - General Family Medicine 11/07/16 Director Strategic Planning Relationship Specialty Start Date End Date Blake Wilcox MD [address] [place] [address] PCP - General Family Medicine 08/05/22 Director Strategic Planning Relationship Specialty Start Date End Date Blake Wilcox MD [address] [place] [address] PCP - General Family Medicine 08/05/22 Director Strategic Planning Relationship Specialty Start Date End Date Blake Wilcox MD [address] [place] [address] PCP - General Family Medicine 08/05/22 Team Status: Active Member Role Status Dates Dr. Carl Franco MD Family Provider Active Dr. Blake Wilcox MD Primary Care Provider Active Team Status: Active Member Role Status Dates Dr. Carl Franco MD Primary Care Provider Acti ve Dr. Lavonne Hoff MD Emergency Provider Active Dr. Ruy Null MD Admit Provider, Other Provide r Active Dr. Fernando Shelton MD Other Provider Active Dr. Brown Lorenz MD Attending Provider, Other Provi bill Active Team Status: Active Member Role Status Dates Dr. Carl Franco MD Primary Care Provider Acti ve Dr. Lavonne Hoff MD Emergency Provider Active Dr. Ruy Null MD Admit Provider, Other Provide r Active Dr. Fernando Shelton MD Attending Provider, Other Provid er Active Dr. Brown Lorenz MD Other Provider Active Team Status: Active Member Role Status Dates Dr. Carl Franco MD Primary Care Provider Acti ve Dr. Ethan Bower MD Attending Provider Active Team Status: Inactive Member Role Status Dates Dr. Carl Franco MD Primary Care Provider, Ref erring Provider Active Cinthya Tolliver PA, PA Attending Provider Active Team Status: Inactive Member Role Status Dates Dr. Carl Franco MD Primary Care Provider Acti ve Dr. Lavonne Hoff MD Emergency Provider Active Dr. Ruy Null MD Admit Provider, Other Provide r Active Dr. Fernando Shelton MD Other Provider Active Dr. Brown Lorenz MD Attending Provider Active Team Status: Inactive Member Role Status Dates Dr. Ethan Bower MD Attending Provider Active Dr. Blake Wilcox MD Primary Care Provider Active Team Status: Active Member Role Status Dates Dr. Blake Wilcox MD Primary Care Provider Active Dr. Ethan Bower MD Attending Provider Active Director Strategic Planning Relationship Specialty Start Date End Date Blake Wilcox MD [address], [place] [id number] PCP - General Family Medicine 08/05/22 Team Status: Inactive Member Role Status Dates Dr. Blake Wilcox MD Primary Care Provider Active Dr. Ethan Bower MD Attending Provider Active Team Status: Inactive Member Role Status Dates Dr. Blake Wilcox MD Primary Care Provider Active Cinthya [place], PA Attending Provider, Referr ing Provider Active Director Strategic Planning Relationship Specialty Start Date End Date Blake Wilcox MD [address] [place] [address] PCP - General Family Medicine 08/05/22 Team Status: Inactive Member Role Status Dates Dr. Blake Wilcox MD Primary Care Provider, Referring Provider Active Cinthya [place], PA Attending Provider Active Team Status: Inactive Member Role Status Dates Dr. Blake Wilcox MD Primary Care Provider, Referring Provider Active Janine Austin CAR RENTAL SALES ASSISTANT, CAR RENTAL SALES ASSISTANT-C Attending Provider Active Team Status: Active Member Role Status Dates Dr. Blake Wilcox MD Primary Care Provider Active Dr. Omid Steinberg MD Attending Provider Active Team Status: Active Member Role Status Dates Dr. Blake Wilcox MD Primary Care Provider Active Self Referred Attending Provider, Referring Provider A ctive Director Strategic Planning Relationship Specialty Start Date End Date Blake Wilcox MD [address] [place] [address] PCP - General Family Medicine 08/05/22 Director Strategic Planning Relationship Specialty Start Date End Date Blake Wilcox MD [address] [place] [address] PCP - General Family Medicine 08/05/22 Team Status: Inactive Member Role Status Dates Dr. Blake Wilcox MD Primary Care Provider Active Dr. Ethan Bower MD Attending Provider, Referring Pro vider Active Director Strategic Planning Relationship Specialty Start Date End Date Blake Wilcox MD [address] [place] [address] PCP - General Family Medicine 08/05/22 Director Strategic Planning Relationship Specialty Start Date End Date Blake Wilcox MD [address] [place] [address] PCP - General Family Medicine 08/05/22 Director Strategic Planning Relationship Specialty Start Date End Date Blake Wilcox MD [address] [place] [address] PCP - General Family Medicine 08/05/22 Team Status: Inactive Member Role Status Dates Dr. Blake Wilcox MD Primary Care Provider, Referring Provider Active Dr. Rocco Irene MD Attending Provider Active Team Status: Inactive Member Role Status Dates Dr. Blake Wilcox MD Primary Care Provider, Referring Provider Active Dr. Ethan Bower MD Active Cinthya Tolliver PA, PA Attending Provider Active Team Status: Inactive Member Role Status Dates Dr. Blake Wilcox MD Primary Care Provider Active Dr. Marti Tom MD Attending Provider, Emergency Provider Active Director Strategic Planning Relationship Specialty Start Date End Date Blake Wilcox MD [address] [place] [address] PCP - General Family Medicine 08/05/22 Director Strategic Planning Relationship Specialty Start Date End Date Blake Wilcox MD [address] [place] [address] PCP - General Family Medicine 08/05/22 Director Strategic Planning Relationship Specialty Start Date End Date Blake Wilcox MD [address], [place] [address] PCP - General Family Medicine 08/05/22 Director Strategic Planning Relationship Specialty Start Date End Date Blaek Wilcox MD [address] [place] [address] PCP - General Family Medicine 08/05/22 Team Status: Inactive Member Role Status Dates Dr. Blake Wilcox MD Referring Provider Active Janine Austin CAR RENTAL SALES ASSISTANT, CAR RENTAL SALES ASSISTANT-C Attending Provider Active Team Status: Inactive Member Role Status Dates Dr. Blake Wilcox MD Primary Care Provider Active Janine Austin CAR RENTAL SALES ASSISTANT, CAR RENTAL SALES ASSISTANT-C Attending Provider, Referrin g Provider Active Team Status: Inactive Member Role Status Dates Dr. Blake Wilcox MD Primary Care Provi bill, Attending Provider, Referring Provider Active Director Strategic Planning Relationship Specialty Start Date End Date Blake Wilcox MD [address], [place] [address] PCP - General Family Medicine 08/05/22 Team Status: Inactive Member Role Status Dates Dr. Blake Wilcox MD Primary Care Provider Active Dr. Brian Hussein DO Emergency Provider Active Director Strategic Planning Relationship Specialty Start Date End Date Blake Wilcox MD [address] [place] [address] PCP - General Family Medicine 08/05/22 Director Strategic Planning Relationship Specialty Start Date End Date Blake Wilcox MD [address] [place] [address] PCP - General Family Medicine 08/05/22 Director Strategic Planning Relationship Specialty Start Date End Date Blake Wilcox MD [address] [place] [address] PCP - General Family Medicine 08/05/22 Director Strategic Planning Relationship Specialty Start Date End Date Blake Wilcox MD [address] [place] [address] PCP - General Family Medicine 08/05/22 Director Strategic Planning Relationship Specialty Start Date End Date Blake Wilcox MD [address] [place] [address] PCP - General Family Medicine 08/05/22 Director Strategic Planning Relationship Specialty Start Date End Date Yousif Franco MD [address] [place] [address] PCP - General Family Medicine 11/07/16 08/04/22 Director Strategic Planning Relationship Specialty Start Date End Date Blake Wilcox MD [address] [place] [address] PCP - General Family Medicine 08/05/22 Director Strategic Planning Relationship Specialty Start Date End Date Blake Wilcox MD [address] [place] [address] PCP - General Family Medicine 08/05/22 Director Strategic Planning Relationship Specialty Start Date End Date Blake Wilcox MD [address] [place] [address] PCP - General Family Medicine 08/05/22 Director Strategic Planning Relationship Specialty Start Date End Date Blake Wilcox MD [address] [place] [address] PCP - General Family Medicine 08/05/22 Director Strategic Planning Relationship Specialty Start Date End Date Blake Wilcox MD [address] [place] [address] PCP - General Family Medicine 08/05/22 Director Strategic Planning Relationship Specialty Start Date End Date Blake Wilcox MD [address] [place] [address] PCP - General Family Medicine 08/05/22 Director Strategic Planning Relationship Specialty Start Date End Date Blake Wilcox MD [address] [place] [address] PCP - General Family Medicine 08/05/22 Miesha Schafer APRN.CHIEF OPERATOR HYDROFORMER [address] [place] [place] [address] Compounding Technician Family Medicine 07/08/24 Tara Charles APRN.CHIEF OPERATOR HYDROFORMER [address] [place] [address] Compounding Technician [facility] 07/08/24 Director Strategic Planning Relationship Specialty Start Date End Date Blake Wilcox MD [address] [place] [address] PCP - General Family Medicine 08/05/22 Miesha Schafer OXYACETYLENE WELDER.CHIEF OPERATOR HYDROFORMER [address] [place] [place] [address] [place] 07/08/24 Tara Charles OXYACETYLENE WELDER.CHIEF OPERATOR HYDROFORMER [address] [place] [address] [facility] 07/08/24 Director Strategic Planning Relationship Specialty Start Date End Date Blake Wilcox MD [address] [place] [address] PCP - General Family Medicine 08/05/22 Miesha Schafer, OXYACETYLENE WELDER.CHIEF OPERATOR HYDROFORMER [address] [facility] [place] [address] [place] 07/08/24 Tara Charles OXYACETYLENE WELDER.CHIEF OPERATOR HYDROFORMER [address] [place] [address] [place] 07/08/24 Team Status: Active Member Role/Relationship Status Dates Dr. Carl Franco MD Family Provider Active Dr. Balke Wilocx MD Primary Care Provider Active Team Status: Inactive Member Role/Relationship Status Dates Dr. Blake Wilcox MD Primary Care Provider Active Start: October 22, 2024 End: October 22, 2024 Dr. Blake Wilcox MD Referring Provider Active Start: October 22, 2024 End: October 22, 2024 MARCE Ribeiro Attending Provider Active Start: October 22, 2024 End: October 22, 2024 Team Status: Inactive Member Role/Relationship Status Dates Dr. Blake Wilcox MD Primary Care Provider Active Start: February 19, 2025 End: February 19, 2025 Dr. Blake Wilcox MD Referring Provider Active Start: February 19, 2025 End: February 19, 2025 Dr. Slade Carey MD Attending Provider Active Start: February 19, 2025 End: February 19, 2025 Team Status: Active Member Role/Relationship Status Dates Dr. Blake Wilcox MD Primary Care Provider Active Team Status: Inactive Member Role/Relationship Status Dates Dr. Blake Wilcox MD Primary Care Provider Active Start: February 19, 2025 End: February 19, 2025 Dr. Blake Wilcox MD Referring Provider Active Start: February 19, 2025 End: February 19, 2025 Dr. Slade Carey MD Attending Provider Active Start: February 19, 2025 End: February 19, 2025 Team Status: Inactive Member Role/Relationship Status Dates Dr. Blake Wilcox MD Primary Care Provider Active Start: February 20, 2025 End: February 20, 2025 Dr. Juventino Naranjo MD Emergency Provider Active Sta rt: February 20, 2025 End: February 20, 2025 Director Strategic Planning Relationship Specialty Start Date End Date Blake Wilcox MD [address] [place] [address] PCP - General Family Medicine 08/05/22 Miesha Schafer, OXYACETYLENE WELDER.CHIEF OPERATOR HYDROFORMER [address] [facility] [place], [place] [address] Compounding Technician Family Medicine 07/08/24 Tara Charles OXYACETYLENE WELDER.CHIEF OPERATOR HYDROFORMER [address], [place] [id number] Compounding Technician Family Medicine 07/08/24 Director Strategic Planning Relationship Specialty Start Date End Date Blake Wilcox MD [address] [place] [address] PCP - General Family Medicine 08/05/22 Miesha Schafer APRN.CHIEF OPERATOR HYDROFORMER [address] [place] [address] [facility] 07/08/24 Tara Charles APRN.CHIEF OPERATOR HYDROFORMER [address] [place] [address] [facility] 07/08/24 Director Strategic Planning Relationship Specialty Start Date End Date Blake Wilcox MD [address] [place] [address] PCP - General Family Medicine 08/05/22 Miesha Schafer APRN.CHIEF OPERATOR HYDROFORMER [address] [place] [address] [facility] 07/08/24 Tara Charles APRN.CHIEF OPERATOR HYDROFORMER [address] [place] [address] [facility] 07/08/24 Goals (unrecognized section and content) Goals may be documented in a n alternate sectionGoals may be documented in an alternate sectionGoals may be documented in an alternate sectionGoals may be documented in an alternate sectionGoals may be documented in an alternate sectionGoals may be documented in an alternate sectionGoals may be documented in an alternate sectionGoals may be documented in an alternate section FOR RECORDS PERTAINING TO PATIENTS WHO ARE [...] BE BASED ON THE PRIMARY CLINICAL RECORDS. [facility] [employer] [facility]. provides no warranty or guarantee of the accuracy or completeness of information in this document.
--- NOTE | 2025-04-06 16:13 | STRESSREP_ITS ---
Stress Test Report Date: 04/04/2025 Procedure: Exercise tolerance test/imaging study Indications: Dyspnea on exertion, chest pain Consent: Per the patient Procedure: The patient exercised on a Amor protocol for 8 minutes and 1 second achieving a peak heart rate of 134 bpm (88% predicted maximal heart rate) with a peak blood pressure 196/82 mmHg and a peak MET capacity of 10.1 METs. The baseline ECG demonstrated normal sinus rhythm. The peak exercise ECG demonstrated no significant ischemic changes. EKG during recovery revealed no significant ischemic changes Patient had occasional PVCs in the exercise phase and in the recovery phase. The functional capacity was considered excellent for age. There was [no complaint of chest discomfort during exercise or recovery]. The examination was discontinued secondary to dyspnea. Impression: 1. Technically adequate (percent predicted maximal heart rate greater than 85%) exercise tolerance test 2. Stress test is negative for exercise-induced EKG changes of ischemia 3. The test test is negative for exercise-induced chest pain 4. Functional capacity is excellent for age 5. Nuclear images pending Myocardial perfusion imaging study: Technique: The patient was injected with 14.8 mCi of technetium 99m Cardiolite and subsequently rest SPECT Cardiolite nuclear imaging was obtained in the horizontal long, vertical long, and short axis views. The patient exercised on a Amor protocol. Please see above for details. The patient was injected with 45 mCi of technetium 99m Cardiolite and subsequently stress SPECT Cardiolite nuclear imaging was obtained in the horizontal long, vertical long, and short axis views. A gated Cardiolite study at peak stress was obtained. Interpretation: Rest and stress SPECT Cardiolite nuclear imaging status post realignment, normalization, and attenuation correction, demonstrates no evidence of significant ischemia or infarction. The gated Cardiolite study demonstrates no significant regional wall motion abnormalities. The reported LVEF is 67%. Impression: 1. There is no evidence of significant ischemia or infarction. 2. The gated Cardiolite study reports an LVEF of 67%. This note was generated with [employer] software. It may contain incorrect words, spelling, and punctuation that were not noted in checking the note before signing.
== END | disposition home or self-care (01) ==
LOC: CVS 05:58
PROVIDERS: PCP Family Medicine; Referring Provider Internal Medicine Cardiovascular Disease; Visit Provider Internal Medicine Cardiovascular Disease
DX: R06.09 Other forms of dyspnea (principal); I47.20 Ventricular tachycardia, unspecified; R07.9 Chest pain, unspecified
CPT/HCPCS: 78452; 93017; 93306; A9500